=== PATIENT | female | born 1950 | race Caucasian/White ===

== ENCOUNTER 2016-03-30 21:47 | Inpatient (IN) ==
[2016-03-30] MEDS ORDERED: Ipratropium/Albuterol Neb 3 ML IH ONE (21:51)
[2016-03-30] MEDS ORDERED: methylPREDNISolone 125 MG/2 ML VIAL IVP ONE (21:51)
[2016-03-30] MEDS ORDERED: Propofol 500 MG/50 ML INFUS..BTL ONE (21:58)
[2016-03-30] MEDS: 0.9 % Sodium Chloride 1,000 ML IVC SCH ×2 (22:00→22:42)
[2016-03-30 22:03] LABS: Red Cell Distribution Width 13.4 % (11.5-14.5)
[2016-03-30 22:05] LABS: Basophils # 0.1 K/mcL (0.0-0.2); Basophils % 0.3 %; Hematocrit 47.3 % (35.3-44.9); Hemoglobin 15.8 g/dL (11.5-15.4); Immature Granulocytes % 1.1 % (0-4); Lymphocytes # 3.1 K/mcL (0.6-4.6); Lymphocytes % 11.9 %; Mean Corpuscular HGB Conc 33.4 g/dL (31.6-35.5); Mean Corpuscular Hemoglobin 32.7 pg (28.0-33.3); Mean Corpuscular Volume 97.9 fL (83.0-100.0); Monocytes % 7.7 %; Neutrophils # 20.6 K/mcL (1.6-8.9); Platelet Count 400 K/mcL (140-400); Red Blood Count 4.83 M/mcL (3.82-4.97)
--- NOTE | 2016-03-30 22:13 | Emergency Department Note ---
Disposition Clinical Impression: Acute exacerbation of chronic obstructive airways disease, Respiratory failure requiring intubation Sepsis Qualifiers: Sepsis type: sepsis due to unspecified organism Qualified Code(s): A41.9 - Sepsis, unspecified organism Disposition: Still a Patient Condition: Critical Referrals: NO,PCP [Primary Care Provider] - Forms: ED Satisfaction Letter General Adult HPI - General Chief complaint: ED Shortness of Breath/Dyspnea Stated complaint: Resp distress Time Seen by Provider: 03/30/16 21:51 Source: EMS Nursing Notes Reviewed: Yes Vital Signs Reviewed: Yes - History of Present Illness HPI Narrative: Patient has a long history of COPD. But looks sick she has ointment to our hospital one time in the past year. It all for shortness of breath. She was smoking when they got there started her on a nebulized treatment and during the transport she started getting more sleepy her saturations drop she became blue. They could not put an IV in her. So when she got here we set her up for an emergent intubation. She was intubated direct visualization after getting sedation here. And was intubated using an 80 tube. Chest x-rays done. Tube was adjusted. Labs are ordered. Septic protocol and placed chest pain or respiratory distress. We will go ahead and start her on sedation. Nebulized treatments. As likely antibiotics and further medications to determine per protocol once she is assessed further with laboratory work and physical exam. She was unable to give us any history due to her critical nature. Past medical history reviewed in nurse's notes reviewed allergies reviewed family interviewed. Pain Scale: 0 - Related Data Home Medications Medication Instructions Recorded Confirmed Albuterol Sulfate [Albuterol 1 puff IH PRN PRN 08/09/15 08/09/15 Inhaler] Alprazolam [Xanax 0.25 MG Tablet] 0.25 - 0.5 mg PO BID PRN 08/09/15 08/12/15 Fluticasone/Salmeterol [Advair 1 each IH BID 08/09/15 08/09/15 500-50 Diskus] Potassium Chloride [Klor-Con 10 meq PO DAILY 08/09/15 08/09/15 Sprinkle] Tiotropium [Spiriva] 18 mcg IH 0700 08/09/15 08/09/15 Atorvastatin Calcium [Lipitor] 20 mg PO HS 08/12/15 08/12/15 Ipratropium/Albuterol Neb [Duoneb] 3 ml IH Q6HR 08/12/15 08/12/15 Losartan/Hydrochlorothiazide 1 each PO DAILY 08/12/15 08/12/15 [Hyzaar 100-25 Tablet] Omeprazole [PriLOSEC] 20 mg PO DAILY 08/12/15 08/12/15 Theophylline Anhydrous 200 mg PO DAILY 08/12/15 08/12/15 [Theophylline] Previous Rx's Medication Instructions Recorded GuaiFENesin ER [Mucinex] 1,200 mg PO BID #1 tbbp.12hr 08/13/15 Levofloxacin [Levaquin] 750 mg PO DAILY #4 tablet 08/13/15 Metoprolol [Lopressor] 25 mg PO BID #60 tablet 08/13/15 Nicotine Patch [Nicoderm] 21 mg TD DAILY #30 patch.[id number] 08/13/15 PredniSONE 10 mg PO DAILY #21 tablet 08/13/15 Allergies Allergy/AdvReac Type Severity Reaction Status Date / Time No Known Allergies Allergy Verified 08/09/15 16:58 Limitations: ROS unobtainable due to patients medical condition Past Medical History - Past Medical History Medical history: Reports: COPD, coronary artery disease, GERD, hyperlipidemia, other Surgical history: Reports: hysterectomy Psychiatric history: Reports: anxiety 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 Her GCS is 10 HEENT: PERRL, EOMI, mucous membranes are dry, no scleral icterus, neck is supple no nodes. Cardiovascular is tachycardic but regular without rubs or JVD Lungs are decreased aeration at bases with wheezing bilaterally. Abdomen is soft and nonsurgical with bowel sounds Extremities are present 4 no pitting edema no signs of cellulitis no tenderness to the calves Neurologic she is not able to do a neuro exam, her GCS is 10. I do not see focal deficits. Dermatologic skin is dry no signs of cellulitis no signs of acute trauma or rash. Her lips were blue due to cyanosis. Course Vital Signs Temperature 101.7 F H 03/30/16 21:52 Pulse Rate 147 03/30/16 21:52 Respiratory Rate 30 03/30/16 21:52 Blood Pressure 190/148 03/30/16 21:52 O2 Sat by Pulse Oximetry 76 L 03/30/16 21:52 Temperature 101.7 F H 03/30/16 21:52 Pulse Rate 147 03/30/16 22:51 Respiratory Rate 14 03/30/16 22:51 Blood Pressure 134/81 03/30/16 22:51 O2 Sat by Pulse Oximetry 99 03/30/16 22:51 Oxygen Delivery Oxygen Delivery Ventilator Medical Decision Making - MDM Narrative Medical decision making narrative: I examined this patient and my medical decision-making was reviewed with the RESPIRATORY CARE SPECIALIST/PA/Advanced Practice Nurse/Resident Physician. I agree with the documented findings, disposition and treatment plan as described except to the extent set forth below. Evaluate this patient on arrival with Nilton Nagy's evaluation management plan, suprascapular patient's stay. Patient has a long history of COPD. But looks sick she has ointment to our hospital one time in the past year. It all for shortness of breath. She was smoking when they got there started her on a nebulized treatment and during the transport she started getting more sleepy her saturations drop she became blue. They could not put an IV in her. So when she got here we set her up for an emergent intubation. She was intubated direct visualization after getting sedation here. And was intubated using an 8 tube. Chest x-rays done. Tube was adjusted. Labs are ordered. Septic protocol and placed chest pain or respiratory distress. We will go ahead and start her on sedation. Nebulized treatments. As likely antibiotics and further medications to determine per protocol once she is assessed further with laboratory work and physical exam. She was unable to give us any history due to her critical nature. Patient's labs are returning. I do not see a true pneumonia and her chest x- ray we are to do a CTA due to the fact her d-dimer is elevated. We started her on sepsis protocol with respiratory source. Ceftriaxone and Levaquin were given she is artery been on Zithromax. I spoke to the hospitalist are going to admit her. We will do the CTA make sure that is normal. I will sign Out to the evening ER doctor Dr. Ordoñez to review the CTA and update the hospitalist with the results. Patient's critical care time excised separately billable procedures is 65 minutes. - Lab Data Result diagrams: 03/30/16 21:52 03/30/16 21:52 Lab Results 03/30/16 03/30/16 03/30/16 Range/Units 21:52 21:52 21:52 WBC 26.1 H (4.3-11.1) K/mcL RBC 4.83 (3.82-4.97) M/mcL Hgb 15.8 H (11.5-15.4) g/dL Hct 47.3 H (35.3-44.9) % MCV 97.9 (83.0-100.0) fL MCH 32.7 (28.0-33.3) pg MCHC 33.4 (31.6-35.5) g/dL RDW 13.4 (11.5-14.5) % Plt Count 400 (140-400) K/mcL MPV 9.0 L (9.4-12.4) fL Immature Gran % 1.1 (0-4) % Seg Neutrophils % 79.0 % Lymphocytes % 11.9 % Monocytes % 7.7 % Eosinophils % 0.0 % Basophils % 0.3 % Neutrophils # 20.6 H (1.6-8.9) K/mcL Lymphocytes # 3.1 (0.6-4.6) K/mcL Monocytes # 2.0 H (0.0-1.3) K/mcL Eosinophils # 0.0 (0.0-0.6) K/mcL Basophils # 0.1 (0.0-0.2) K/mcL Platelet Estimate Normal (Normal) D-Dimer (0-500) ng/mLFEU Sodium 129 L (136-145) mEq/L Potassium 4.1 (3.5-4.5) mEq/L Chloride 86 L (98-109) mEq/L Carbon Dioxide 35 H (19-29) mEq/L BUN 10 (7-20) mg/dL Creatinine 0.84 (0.57-1.11) mg/dL Est GFR ( Amer) > 60 (> 60) Est GFR (Non-Af Amer) > 60 (> 60) BUN/Creatinine Ratio 12 (6-26) Glucose 251 H (70-99) mg/dL Calculated Osmolality 276 L (280-300) Lactic Acid (0.5-2.2) mmol/L Calcium 9.9 (8.6-10.8) mg/dL Troponin I 0.18 H* (0-0.03) ng/mL B-Natriuretic Peptide (0-100) pg/mL 03/30/16 03/30/16 03/30/16 Range/Units 21:52 21:52 21:52 WBC (4.3-11.1) K/mcL RBC (3.82-4.97) M/mcL Hgb (11.5-15.4) g/dL Hct (35.3-44.9) % MCV (83.0-100.0) fL MCH (28.0-33.3) pg MCHC (31.6-35.5) g/dL RDW (11.5-14.5) % Plt Count (140-400) K/mcL MPV (9.4-12.4) fL Immature Gran % (0-4) % Seg Neutrophils % % Lymphocytes % % Monocytes % % Eosinophils % % Basophils % % Neutrophils # (1.6-8.9) K/mcL Lymphocytes # (0.6-4.6) K/mcL Monocytes # (0.0-1.3) K/mcL Eosinophils # (0.0-0.6) K/mcL Basophils # (0.0-0.2) K/mcL Platelet Estimate (Normal) D-Dimer 1079 H (0-500) ng/mLFEU Sodium (136-145) mEq/L Potassium (3.5-4.5) mEq/L Chloride (98-109) mEq/L Carbon Dioxide (19-29) mEq/L BUN (7-20) mg/dL Creatinine (0.57-1.11) mg/dL Est GFR ( Amer) (> 60) Est GFR (Non-Af Amer) (> 60) BUN/Creatinine Ratio (6-26) Glucose (70-99) mg/dL Calculated Osmolality (280-300) Lactic Acid 2.6 H (0.5-2.2) mmol/L Calcium (8.6-10.8) mg/dL Troponin I (0-0.03) ng/mL B-Natriuretic Peptide 58 (0-100) pg/mL
[2016-03-30 22:18] LABS: BUN/Creatinine Ratio 12 (6-26); Blood Urea Nitrogen 10 mg/dL (7-20); Calcium 9.9 mg/dL (8.6-10.8); Carbon Dioxide 35 mEq/L (19-29); Chloride 86 mEq/L (98-109); Glucose 251 mg/dL (70-99); Osmolality,Calculated 276 (280-300); Potassium 4.1 mEq/L (3.5-4.5); Sodium 129 mEq/L (136-145); eGFR For African Americans > 60 (> 60); eGFR For Non-African Americans > 60 (> 60)
[2016-03-30] MEDS ORDERED: 0.9 % Sodium Chloride 2,000 ML ONE (22:32)
[2016-03-30] MEDS ORDERED: Levofloxacin 750 MG/150 ML 750 MG/150 ML BAG IVPB ONE (22:36)
[2016-03-30 22:37] LABS: Platelet Estimate Normal (Normal)
--- NOTE | 2016-03-30 22:44 | Emergency Department Note ---
Disposition Clinical Impression: Acute exacerbation of chronic obstructive airways disease, Respiratory failure requiring intubation Sepsis Qualifiers: Sepsis type: sepsis due to unspecified organism Qualified Code(s): A41.9 - Sepsis, unspecified organism Disposition: Admitted As Inpatient Condition: Critical Time of Disposition: 22:38 SOB HPI - General Chief Complaint: ED Shortness of Breath/Dyspnea Stated Complaint: Resp distress Time Seen by Provider: 03/30/16 21:51 Source: EMS Nursing Notes Reviewed: Yes Vital Signs Reviewed: Yes - History of Present Illness 65-year-old female who presented obtunded secondary to respiratory distress. Patient was intubated upon arrival to the emergency department. - Related Data Home Medications Medication Instructions Recorded Confirmed Albuterol Sulfate [Albuterol 1 puff IH PRN PRN 08/09/15 03/30/16 Inhaler] Alprazolam [Xanax 0.25 MG Tablet] 0.25 - 0.5 mg PO BID PRN 08/09/15 03/30/16 Potassium Chloride [Klor-Con 10 meq PO DAILY 08/09/15 03/30/16 Sprinkle] Tiotropium [Spiriva] 18 mcg IH DAILY 08/09/15 03/30/16 Atorvastatin Calcium [Lipitor] 20 mg PO HS 08/12/15 03/30/16 Ipratropium/Albuterol Neb [Duoneb] 3 ml IH Q6HR 08/12/15 03/30/16 Losartan/Hydrochlorothiazide 1 tab PO DAILY 08/12/15 03/30/16 [Hyzaar 100-25 Tablet] Omeprazole [PriLOSEC] 20 mg PO DAILY 08/12/15 03/30/16 Theophylline Anhydrous 200 mg PO DAILY 08/12/15 03/30/16 [Theophylline] Azithromycin [Azithromycin 6-Tab 250 mg PO PER PKG DI 03/30/16 03/30/16 Pack] Cholecalciferol (D-3) [Vitamin D] 2,000 unit PO DAILY 03/30/16 03/30/16 Fluticasone/Salmeterol [Advair 1 puff IH BID 03/30/16 03/30/16 250-50 Diskus] Metoprolol XL (24 HR) Succ [Toprol 100 mg PO DAILY 03/30/16 03/30/16 XL] PredniSONE [Deltasone] 40 mg PO DAILY 03/30/16 03/30/16 Torsemide [Demadex] 10 - 20 mg PO DAILY PRN 03/30/16 03/30/16 Allergies Allergy/AdvReac Type Severity Reaction Status Date / Time No Known Allergies Allergy Verified 08/09/15 16:58 Past Medical History - Past Medical History Medical history: Reports: COPD, coronary artery disease, GERD, hyperlipidemia, other Surgical history: Reports: hysterectomy Psychiatric history: Reports: anxiety JUDO TEACHER history: Reports: no JUDO TEACHER history - Social History Smoking Status: Current every day smoker Smokeless Tobacco Status: No Alcohol use: Reports: none Drug use: Reports: none Physical Exam Patient is not adequately respirator or perfusing which required intubation to maintain patient's airway. Post intubation patient was placed on ventilatory support - General Limitations: altered mental status General appearance: obtunded, in distress - Head Head exam: atraumatic, normocephalic Course Vital Signs Temperature 101.7 F H 03/30/16 21:52 Pulse Rate 147 03/30/16 21:52 Respiratory Rate 30 03/30/16 21:52 Blood Pressure 190/148 03/30/16 21:52 O2 Sat by Pulse Oximetry 76 L 03/30/16 21:52 Temperature 98.6 F 04/05/16 21:01 Pulse Rate 86 04/05/16 20:15 Respiratory Rate 18 04/05/16 21:48 Blood Pressure 128/80 04/05/16 20:15 O2 Sat by Pulse Oximetry 98 04/05/16 21:48 Oxygen Delivery Oxygen Delivery Ventilator Procedures - Intubation Time out performed: Yes sedative: Etomidate Mg Given: 20 paralytic: Rocuronium Mg Given: 100 Laryngoscope: Estrada ET Tube Size: 8 ET Tube Uncuffed: No Tube Secured Depth (cm): 23 Tube Secured Location: teeth Tube Placement Confirmation: visualized tube passing through cords, equal breath sounds bilaterally, no breath sounds over epigastrium, confirmation by capnometry Patient Tolerated Procedure: well, no complications Intubation Complications: none Shortness of Breath/Dyspnea - Medical Records Medical records reviewed: Yes I reviewed the patient's medical records. - Lab Data Lab results reviewed: Yes I reviewed the patient's lab results. Result diagrams: 04/05/16 03:45 04/05/16 03:45 Lab Results 03/30/16 03/30/16 03/30/16 Range/Units 21:52 21:52 21:52 WBC 26.1 H (4.3-11.1) K/mcL RBC 4.83 (3.82-4.97) M/mcL Hgb 15.8 H (11.5-15.4) g/dL Hct 47.3 H (35.3-44.9) % MCV 97.9 (83.0-100.0) fL MCH 32.7 (28.0-33.3) pg MCHC 33.4 (31.6-35.5) g/dL RDW 13.4 (11.5-14.5) % Plt Count 400 (140-400) K/mcL MPV 9.0 L (9.4-12.4) fL Immature Gran % 1.1 (0-4) % Seg Neutrophils % 79.0 % Lymphocytes % 11.9 % Monocytes % 7.7 % Eosinophils % 0.0 % Basophils % 0.3 % Neutrophils # 20.6 H (1.6-8.9) K/mcL Lymphocytes # 3.1 (0.6-4.6) K/mcL Monocytes # 2.0 H (0.0-1.3) K/mcL Eosinophils # 0.0 (0.0-0.6) K/mcL Basophils # 0.1 (0.0-0.2) K/mcL Platelet Estimate Normal (Normal) D-Dimer (0-500) ng/mLFEU ABG pH (7.32-7.45) pH Units ABG pCO2 (35-45) mmHg ABG pO2 (85-104) mmHg ABG HCO3 (21-27) mEQ/L ABG Total CO2 (20-26) mEq/L ABG O2 Saturation (95-98) % ABG Base Excess (-2.0 to 3.0) mEq/L Blood Gas Modality Inspired O2 % Sodium 129 L (136-145) mEq/L Potassium 4.1 (3.5-4.5) mEq/L Chloride 86 L (98-109) mEq/L Carbon Dioxide 35 H (19-29) mEq/L BUN 10 (7-20) mg/dL Creatinine 0.84 (0.57-1.11) mg/dL Est GFR ( Amer) > 60 (> 60) Est GFR (Non-Af Amer) > 60 (> 60) BUN/Creatinine Ratio 12 (6-26) Glucose 251 H (70-99) mg/dL Calculated Osmolality 276 L (280-300) Lactic Acid (0.5-2.2) mmol/L Calcium 9.9 (8.6-10.8) mg/dL Troponin I 0.18 H* (0-0.03) ng/mL B-Natriuretic Peptide (0-100) pg/mL 03/30/16 03/30/16 03/30/16 Range/Units 21:52 21:52 21:52 WBC (4.3-11.1) K/mcL RBC (3.82-4.97) M/mcL Hgb (11.5-15.4) g/dL Hct (35.3-44.9) % MCV (83.0-100.0) fL MCH (28.0-33.3) pg MCHC (31.6-35.5) g/dL RDW (11.5-14.5) % Plt Count (140-400) K/mcL MPV (9.4-12.4) fL Immature Gran % (0-4) % Seg Neutrophils % % Lymphocytes % % Monocytes % % Eosinophils % % Basophils % % Neutrophils # (1.6-8.9) K/mcL Lymphocytes # (0.6-4.6) K/mcL Monocytes # (0.0-1.3) K/mcL Eosinophils # (0.0-0.6) K/mcL Basophils # (0.0-0.2) K/mcL Platelet Estimate (Normal) D-Dimer 1079 H (0-500) ng/mLFEU ABG pH (7.32-7.45) pH Units ABG pCO2 (35-45) mmHg ABG pO2 (85-104) mmHg ABG HCO3 (21-27) mEQ/L ABG Total CO2 (20-26) mEq/L ABG O2 Saturation (95-98) % ABG Base Excess (-2.0 to 3.0) mEq/L Blood Gas Modality Inspired O2 % Sodium (136-145) mEq/L Potassium (3.5-4.5) mEq/L Chloride (98-109) mEq/L Carbon Dioxide (19-29) mEq/L BUN (7-20) mg/dL Creatinine (0.57-1.11) mg/dL Est GFR ( Amer) (> 60) Est GFR (Non-Af Amer) (> 60) BUN/Creatinine Ratio (6-26) Glucose (70-99) mg/dL Calculated Osmolality (280-300) Lactic Acid 2.6 H (0.5-2.2) mmol/L Calcium (8.6-10.8) mg/dL Troponin I (0-0.03) ng/mL B-Natriuretic Peptide 58 (0-100) pg/mL 03/30/16 Range/Units 23:48 WBC (4.3-11.1) K/mcL RBC (3.82-4.97) M/mcL Hgb (11.5-15.4) g/dL Hct (35.3-44.9) % MCV (83.0-100.0) fL MCH (28.0-33.3) pg MCHC (31.6-35.5) g/dL RDW (11.5-14.5) % Plt Count (140-400) K/mcL MPV (9.4-12.4) fL Immature Gran % (0-4) % Seg Neutrophils % % Lymphocytes % % Monocytes % % Eosinophils % % Basophils % % Neutrophils # (1.6-8.9) K/mcL Lymphocytes # (0.6-4.6) K/mcL Monocytes # (0.0-1.3) K/mcL Eosinophils # (0.0-0.6) K/mcL Basophils # (0.0-0.2) K/mcL Platelet Estimate (Normal) D-Dimer (0-500) ng/mLFEU ABG pH 7.11 L* (7.32-7.45) pH Units ABG pCO2 126 H* (35-45) mmHg ABG pO2 118 H (85-104) mmHg ABG HCO3 40.0 H (21-27) mEQ/L ABG Total CO2 43.9 H (20-26) mEq/L ABG O2 Saturation 97 (95-98) % ABG Base Excess 5.1 H (-2.0 to 3.0) mEq/L Blood Gas Modality ASSIST CONTROL Inspired O2 60 % Sodium (136-145) mEq/L Potassium (3.5-4.5) mEq/L Chloride (98-109) mEq/L Carbon Dioxide (19-29) mEq/L BUN (7-20) mg/dL Creatinine (0.57-1.11) mg/dL Est GFR ( Amer) (> 60) Est GFR (Non-Af Amer) (> 60) BUN/Creatinine Ratio (6-26) Glucose (70-99) mg/dL Calculated Osmolality (280-300) Lactic Acid (0.5-2.2) mmol/L Calcium (8.6-10.8) mg/dL Troponin I (0-0.03) ng/mL B-Natriuretic Peptide (0-100) pg/mL - Radiology Data Radiology results reviewed: Yes I reviewed the patient's radiology results. Chest CTA 03/30/16 22:46 IMPRESSION: 1. Bilateral bronchitis and bronchiolitis. 2. Mildly enlarged mediastinal and right hilar adenopathy, likely reactive. 3. Nasogastric tube terminates at the level of the lower gastroesophageal junction and should be advanced approximately 7 cm. 4. Mild inflammatory stranding surrounding the left adrenal gland could be due to hemorrhage. D/ / Clifton Romero MD / Clifton Romero MD Interpreting Provider: Clifton Romero MD Chest X-Ray 04/02/16 06:00 IMPRESSION: 1. The orogastric tube has been retracted. The tip is in the distal esophagus, and the side port is in the mid esophagus. This should be advanced 18 cm. 2. Pulmonary vascular congestion with small bilateral pleural effusions and associated bibasilar atelectasis. D/ / Stu Plaza MD / Stu Plaza MD Interpreting Provider: Stu Plaza MD X-Ray 04/02/16 08:14 IMPRESSION: Enteric tube in place with its tip likely within the distal stomach. D/ / Itzel Roldan Cha, MD / Itzel Roldan Cha, MD Interpreting Provider: Itzel Roldan Cha, MD
[2016-03-30] MEDS ORDERED: Aspirin 81 MG TAB.CHEW PO ONE (22:45)
[2016-03-30 23:53] LABS: ABG Base Excess 5.1 mEq/L (-2.0 to 3.0); ABG Oxygen Saturation 97 % (95-98); ABG PO2 118 mmHg (85-104); ABG TCO2 43.9 mEq/L (20-26)
[2016-03-30 23:56] LABS: ABG PCO2 126 mmHg (35-45); ABG PH 7.11 pH Units (7.32-7.45); Blood Gas FiO2 60 %
[2016-03-31] MEDS ORDERED: Naloxone 0.4 MG/ML INJ IVP PRN (00:01)
--- NOTE | 2016-03-31 00:53 | Internal Med History&Physical ---
Date of Encounter: 03/31/16 Time of Encounter: 00:30 Assessment and Plan (1) Respiratory failure requiring intubation Current visit: Yes Status: Acute Acute respiratory failure with hypoxia and hypercarbia. Likely secondary to COPD exacerbation in the setting of bronchitis. CTA suggestive of bronchitis, no signs of PE. ABG showed CO2 126. Patient currently intubated. Given one dose rocephin in ED. Continue levaquin. Continue steroids. (2) Acute exacerbation of chronic obstructive airways disease Current visit: Yes Status: Acute See above (3) Bronchitis Current visit: Yes Status: Acute See above. (4) Sepsis Current visit: Yes Status: Acute Sepsis, possibly reactive to ARF in the setting of COPD exacerbation vs bronchitis. Patient received fluid bolus, one dose rocephin, and continuing Lezaquin. Blood cultures pending. Ordered repeat Lactic acid. Qualifiers: Sepsis type: sepsis due to unspecified organism Qualified Code(s): A41.9 - Sepsis, unspecified organism (5) DVT prophylaxis Current visit: No Status: Acute Lovenox daily (6) HTN (hypertension) Current visit: No Status: Chronic Hypertensive on arrival, decreased with administration of propofol. Continue to monitor and adjust medications as needed. Qualifiers: Hypertension type: essential hypertension Qualified Code(s): I10 - Essential (primary) hypertension (7) SANJUANA (obstructive sleep apnea) Current visit: No Status: Chronic Internal Medicine - H&P: HPI Chief complaint: shortness of breath Admitted From: Emergency Dept Plans for Post Hospital Care: Home History of present illness: Ms. Cook is a 65 year old female brought in by EMS for respiratory distress, patient was quickly intubated upon arrival and unable to provide history. I was able to talk to patient's daughter that stated Ms. Cook began feeling sick and short of breath on Sunday. On Sunday she was seen at [facility] where she received azithromycin and steroids, however, continued to worsen at home until she called for EMS tonight. Patient's daughter states that patient has a history of COPD, with an exacerbation in the past 6-12 months. Patient continues to smoke 1-2ppd, though a few months ago she did try quitting with Chantix and was unsuccessful. DAughter also notes patient has been coughing the past week with sputum production. Past Med Surg Social Fam HX - Past Medical History Medical history: COPD, coronary artery disease, GERD, hyperlipidemia, other Psychiatric history: anxiety - Past Surgical History Surgical History: hysterectomy - Social History Smoking Status: Current every day smoker Smokeless Tobacco Status: No Alcohol use: none Drug use: none - Family History Father Hx Family Cardiac Disorders: Yes Hx Family Respiratory Disorders: No Hx Family Endocrine Disorder: Yes (possible diabetic) Internal Medicine - H&P: Meds Albuterol Sulfate [Albuterol Inhaler] 1 puff IH PRN PRN 08/09/15 [History] Alprazolam [Xanax 0.25 MG Tablet] 0.25 - 0.5 mg PO BID PRN 08/09/15 [History] Potassium Chloride [Klor-Con Sprinkle] 10 meq PO DAILY 08/09/15 [History] Tiotropium [Spiriva] 18 mcg IH DAILY 08/09/15 [History] Atorvastatin Calcium [Lipitor] 20 mg PO HS 08/12/15 [History] Ipratropium/Albuterol Neb [Duoneb] 3 ml IH Q6HR 08/12/15 [History] Losartan/Hydrochlorothiazide [Hyzaar 100-25 Tablet] 1 tab PO DAILY 08/12/15 [ History] Omeprazole [PriLOSEC] 20 mg PO DAILY 08/12/15 [History] Theophylline Anhydrous [Theophylline] 200 mg PO DAILY 08/12/15 [History] Azithromycin [Azithromycin 6-Tab Pack] 250 mg PO PER PKG DI 03/30/16 [History] Cholecalciferol (D-3) [Vitamin D] 2,000 unit PO DAILY 03/30/16 [History] Fluticasone/Salmeterol [Advair 250-50 Diskus] 1 puff IH BID 03/30/16 [History] Metoprolol XL (24 HR) Succ [Toprol XL] 100 mg PO DAILY 03/30/16 [History] PredniSONE [Deltasone] 40 mg PO DAILY 03/30/16 [History] Torsemide [Demadex] 10 - 20 mg PO DAILY PRN 03/30/16 [History] Allergies No Known Allergies Allergy (Verified 08/09/15 16:58) ROS unobtainable: due to endotracheal tube All Systems PM: A 10-system review of systems was performed and is negative for pertinent findings except as documented above in the HPI. - Constitutional Vitals: Temp Pulse Resp BP Pulse Ox 99.6 F 147 16 130/77 99 03/31/16 00:30 03/30/16 22:51 03/31/16 00:30 03/31/16 00:30 03/30/16 22:51 Exam: Patient sedated and on mechanical ventilation. - Head Head exam: Present: atraumatic, normocephalic - Eye Eye exam: Present: conjuntiva pink, sclera anicteric Pupils: Present: miosis - Neck Neck exam general surgery: Present: supple, trachea midline. Absent: lymphadenopathy - Respiratory Respiratory exam: Present: rhonchi, wheezes. Absent: accessory muscle use, rales Additional comments: coarse breath sounds throughout. - Cardiovascular Cardiovascular exam: Present: distant heart sounds, RRR, +S1, +S2. Absent: diastolic murmur, gallop, rubs, systolic murmur - GI/Abdominal GI/Abdominal exam: Present: normal bowel sounds, soft, no peritoneal signs. Absent: distended - Extremities Exam Extremities exam: Present: warm, radial pulses palpable and symetrical. Absent : cyanotic, pedal edema - Neurological Exam Additional comments: patient sedated. - Skin Skin exam: Present: dry, intact Internal Med - H&P Results - Labs CBC & Chem 7: 03/30/16 21:52 03/30/16 21:52
[2016-03-31] MEDS ORDERED: Propofol 500 MG/50 ML INFUS..BTL ONE (00:56)
[2016-03-31 01:09] LABS: ABG Base Excess 3.5 mEq/L (-2.0 to 3.0); ABG HCO3 36.2 mEQ/L (21-27); ABG Oxygen Saturation 94 % (95-98); ABG PO2 87 mmHg (85-104); ABG TCO2 39.2 mEq/L (20-26)
[2016-03-31 01:11] LABS: ABG PH 7.18 pH Units (7.32-7.45); Blood Gas FiO2 60 %
[2016-03-31 01:12] LABS: ABG PCO2 97 mmHg (35-45)
[2016-03-31] MEDS ORDERED: 0.9 % Sodium Chloride 1,000 ML IVC ONE (02:04)
[2016-03-31] MEDS: 0.9 % Sodium Chloride 1,000 ML IVC SCH ×5 (02:11→20:25)
[2016-03-31] MEDS: FentaNYL (PF) 1,000 MCG in 0.9 % Sodium Chloride 80 ML IVC SCH ×3 (02:27→17:54)
[2016-03-31 02:58] LABS: BUN/Creatinine Ratio 12 (6-26); Blood Urea Nitrogen 11 mg/dL (7-20); Carbon Dioxide 29 mEq/L (19-29); Chloride 93 mEq/L (98-109); Glucose 168 mg/dL (70-99); Osmolality,Calculated 273 (280-300); Potassium 4.2 mEq/L (3.5-4.5); Sodium 130 mEq/L (136-145); eGFR For African Americans > 60 (> 60); eGFR For Non-African Americans > 60 (> 60)
[2016-03-31 03:02] LABS: Calcium 7.8 mg/dL (8.6-10.8)
[2016-03-31] MEDS ORDERED: *HR* Heparin 5,000 UNIT/ML VIAL IVP PRN ×2 (03:17)
[2016-03-31] MEDS ORDERED: *HR* Heparin 5,000 UNIT/ML VIAL IVP ONE (03:17)
[2016-03-31] MEDS ORDERED: Aspirin 81 MG TAB.CHEW PO ONE (03:31)
[2016-03-31 03:52] LABS: INR 1.1
[2016-03-31 03:54] LABS: Activated Partial Thrombo Time 28.4 Seconds (26.0-36.0)
[2016-03-31] MEDS: Heparin 25,000 UNIT/500 ML D5W 25,000 UNIT/500 ML MLS IVC SCH (04:16)
[2016-03-31] MEDS: Piperacillin/Tazobactam 3.375 GM in D5% in Water (Mini-Bag+) 100 ML IVPB SCH ×3 (04:20→21:51)
[2016-03-31 04:22] LABS: Magnesium 1.4 mg/dL (1.6-2.6)
[2016-03-31 04:51] LABS: ABG Base Excess 4.7 mEq/L (-2.0 to 3.0); ABG HCO3 34.6 mEQ/L (21-27); ABG Oxygen Saturation 99 % (95-98); ABG PH 7.25 pH Units (7.32-7.45); ABG PO2 151 mmHg (85-104)
[2016-03-31 04:52] LABS: Blood Gas FiO2 60 %
[2016-03-31 04:54] LABS: ABG PCO2 79 mmHg (35-45)
[2016-03-31 05:03] LABS: Hematocrit 41.6 % (35.3-44.9); Mean Corpuscular HGB Conc 32.7 g/dL (31.6-35.5); Mean Corpuscular Hemoglobin 32.1 pg (28.0-33.3); Mean Corpuscular Volume 98.1 fL (83.0-100.0); Mean Platelet Volume 9.3 fL (9.4-12.4); Platelet Count 276 K/mcL (140-400); Red Blood Count 4.24 M/mcL (3.82-4.97); Red Cell Distribution Width 13.5 % (11.5-14.5)
[2016-03-31 05:25] LABS: Hemoglobin 13.6 g/dL (11.5-15.4)
[2016-03-31] MEDS ORDERED: *HR* Enoxaparin 40 MG/0.4 ML SYRINGE SQ SCH (06:00)
[2016-03-31] MEDS ORDERED: Sodium Phosphate 30 MMOL in D5% in Water 100 ML IVPB PRN (06:36)
[2016-03-31] MEDS ORDERED: Dexmedetomidine HCl 400 MCG/100 ML MLS IVC ONE (07:23)
--- NOTE | 2016-03-31 07:35 | Pulmonology Consult Note ---
<Renato Erickson - Last Filed: 03/31/16 12:08> Time of Encounter: 07:34 Assessment and Plan (1) Septic shock Current Visit: Yes Status: Acute Patient presented with tachycardia and tachypnea with pneumonia as a possible source of infection. Patient was hypotensive which did not respond to fluids. Norepinephrine has been initiated. Blood cultures are pending. Initial lactic acid was 2.6, this has come down to 1.5. Broad-spectrum antibiotic coverage with vancomycin, Levaquin, Zosyn. We will continue to monitor. (2) Acute hypercapnic respiratory failure Current Visit: Yes Status: Acute Likely related to acute exacerbation of COPD. No objective evidence of pneumonia however this is still concern. Patient had significant hypercapnia on presentation which is improved with mechanical ventilation. We will continue to follow her ABGs. (3) Acute exacerbation of chronic obstructive airways disease Current Visit: Yes Status: Acute Patient was being treated as an outpatient however she failed outpatient treatment. Patient had worsening of her symptoms. Including shortness of breath, sputum production. Patient was intubated and mechanically ventilated. She is currently on bronchodilators, steroids, antibiotics with vancomycin, Levaquin, Zosyn. (4) Non-STEMI (non-ST elevated myocardial infarction) Current Visit: Yes Status: Acute Patient had an elevation of her troponin which peaked at 2.9. There are some areas of ST elevation on EKG, clinical services consultant was contacted overnight who did not feel this was a STEMI. Heparin drip is been initiated. Cardiology is following. We will hold her beta brenda and ARB in the setting of hypotension. (5) Chronic heart failure Current Visit: Yes Status: Acute Does not appear to be in acute exacerbation. Echo pending. Patient is on outpatient diuretic, beta brenda, angiotension receptor brenda. We will hold these due to hypotension. Cardiology is following. Qualifiers: Heart failure type: unspecified heart failure type Qualified Code(s): I50.9 - Heart failure, unspecified (6) DVT prophylaxis Current Visit: No Status: Acute Heparin 5000 units subcutaneous twice a day. History of Present Illness Consult date: 03/31/16 Requesting physician: Abhay Isidro Reason for consult: dyspnea Chief complaint: Respiratory distress History of present illness: Patient is a 65-year-old female with history of severe COPD who presented in respiratory distress. Apparently she was having some upper respiratory type infections for the last several days, saw her primary care physician and was treated as an outpatient with Zithromax and prednisone. She did not improve and came to the emergency department last night with shortness of breath. She was found to be in respiratory distress and was subsequently intubated. At time of exam the patient was awake, intubated, sedated and appeared to be resting comfortably. Past Med Surg Social Fam HX - Past Medical History Medical history: COPD, coronary artery disease, GERD, hyperlipidemia, other Psychiatric history: anxiety - Past Surgical History Surgical History: hysterectomy - Social History Smoking Status: Current every day smoker Packs per day: 2 Smokeless Tobacco Status: No Alcohol use: none Drug use: none - Family History Father Hx Family Cardiac Disorders: Yes Hx Family Respiratory Disorders: No Hx Family Endocrine Disorder: Yes (possible diabetic) Medications and Allergies Albuterol Sulfate [Albuterol Inhaler] 1 puff IH PRN PRN 08/09/15 [History] Alprazolam [Xanax 0.25 MG Tablet] 0.25 - 0.5 mg PO BID PRN 08/09/15 [History] Potassium Chloride [Klor-Con Sprinkle] 10 meq PO DAILY 08/09/15 [History] Tiotropium [Spiriva] 18 mcg IH DAILY 08/09/15 [History] Atorvastatin Calcium [Lipitor] 20 mg PO HS 08/12/15 [History] Ipratropium/Albuterol Neb [Duoneb] 3 ml IH Q6HR 08/12/15 [History] Losartan/Hydrochlorothiazide [Hyzaar 100-25 Tablet] 1 tab PO DAILY 08/12/15 [ History] Omeprazole [PriLOSEC] 20 mg PO DAILY 08/12/15 [History] Theophylline Anhydrous [Theophylline] 200 mg PO DAILY 08/12/15 [History] Azithromycin [Azithromycin 6-Tab Pack] 250 mg PO PER PKG DI 03/30/16 [History] Cholecalciferol (D-3) [Vitamin D] 2,000 unit PO DAILY 03/30/16 [History] Fluticasone/Salmeterol [Advair 250-50 Diskus] 1 puff IH BID 03/30/16 [History] Metoprolol XL (24 HR) Succ [Toprol XL] 100 mg PO DAILY 03/30/16 [History] PredniSONE [Deltasone] 40 mg PO DAILY 03/30/16 [History] Torsemide [Demadex] 10 - 20 mg PO DAILY PRN 03/30/16 [History] Allergies No Known Allergies Allergy (Verified 08/09/15 16:58) ROS unobtainable: due to endotracheal tube All Systems: A 10-system review of systems was performed and is negative for pertinent findings except as documented above in the HPI. Physical Examination Vital Signs: Vital Signs, Last 4 Hours Temp Pulse Resp BP Pulse Ox 03/31/16 06:00 80 16 78/54 97 03/31/16 05:00 83 16 80/58 99 03/31/16 04:40 83 03/31/16 04:34 99.1 F 03/31/16 04:00 86 16 72/57 99 General appearance: comatose ENT: oropharynx moist Effort: normal Auscultation: bilateral: diminished breath sounds Cardiovascular: regular rate and rhythm Gastrointestinal: normoactive bowel sounds, soft, non-tender, non-distended Extremities: no cyanosis, no clubbing, edema (Trace) unable to assess due to mental status Ventilator Settings Ventilator Settings: Ventilator Settings, Last 8 Hours Ventilator Mode A/C Ventilator Mode A/C Ventilator Mode A/C Ventilator Mode A/C Ventilator Mode A/C Ventilator Mode A/C Ventilator Tidal Volume 500 Setting Ventilator Tidal Volume 500 Setting Ventilator Tidal Volume 500 Setting Ventilator Tidal Volume 500 Setting Ventilator Tidal Volume 500 Setting Ventilator Tidal Volume 500 Setting Ventilator Respiratory Rate 16 Setting Ventilator Respiratory Rate 16 Setting Ventilator Respiratory Rate 16 Setting Ventilator Respiratory Rate 16 Setting Ventilator Respiratory Rate 16 Setting Ventilator Respiratory Rate 16 Setting Actual Respiratory Rate 16 Actual Respiratory Rate 16 Actual Respiratory Rate 16 Actual Respiratory Rate 16 Actual Respiratory Rate 16 Actual Respiratory Rate 16 Positive End Expiratory 5 Pressure Positive End Expiratory 5 Pressure Positive End Expiratory 5 Pressure Positive End Expiratory 5 Pressure Positive End Expiratory 5 Pressure Positive End Expiratory 5 Pressure Peak Inspiratory Airway 47 Pressure Peak Inspiratory Airway 51 Pressure Peak Inspiratory Airway 35 Pressure Peak Inspiratory Airway 44 Pressure Peak Inspiratory Airway 38 Pressure Peak Inspiratory Airway 36 Pressure Results - Laboratory Findings CBC and BMP: 03/31/16 02:34 03/31/16 02:38 ABG ABG pH 7.25 pH Units (7.32-7.45) L 03/31/16 04:38 ABG pCO2 79 mmHg (35-45) H* 03/31/16 04:38 ABG pO2 151 mmHg (85-104) H 03/31/16 04:38 ABG O2 Saturation 99 % (95-98) H 03/31/16 04:38 PT/INR, D-dimer PT 12.0 Seconds (9.4-12.1) 03/31/16 03:38 D-Dimer 1079 ng/mLFEU (0-500) H 03/30/16 21:52 Abnormal lab findings: Abnormal lab results WBC 15.5 K/mcL (4.3-11.1) H 03/31/16 02:34 MPV 9.3 fL (9.4-12.4) L 03/31/16 02:34 Neutrophils # 20.6 K/mcL (1.6-8.9) H 03/30/16 21:52 Monocytes # 2.0 K/mcL (0.0-1.3) H 03/30/16 21:52 D-Dimer 1079 ng/mLFEU (0-500) H 03/30/16 21:52 ABG pH 7.25 pH Units (7.32-7.45) L 03/31/16 04:38 ABG pCO2 79 mmHg (35-45) H* 03/31/16 04:38 ABG pO2 151 mmHg (85-104) H 03/31/16 04:38 ABG HCO3 34.6 mEQ/L (21-27) H 03/31/16 04:38 ABG Total CO2 37.0 mEq/L (20-26) H 03/31/16 04:38 ABG O2 Saturation 99 % (95-98) H 03/31/16 04:38 ABG Base Excess 4.7 mEq/L (-2.0 to 3.0) H 03/31/16 04:38 Sodium 130 mEq/L (136-145) L 03/31/16 02:38 Chloride 93 mEq/L (98-109) L 03/31/16 02:38 Glucose 168 mg/dL (70-99) H 03/31/16 02:38 POC Glucose 184 (58-89) H 03/31/16 01:07 Calculated Osmolality 273 (280-300) L 03/31/16 02:38 Calcium 7.8 mg/dL (8.6-10.8) L D 03/31/16 02:38 Magnesium 1.4 mg/dL (1.6-2.6) L 03/31/16 02:38 Troponin I 2.93 ng/mL (0-0.03) H* 03/31/16 02:38 - Clinical Findings Intake & Output: Intake & Output 03/30/16 03/30/16 03/31/16 15:59 23:59 07:59 Intake Total 2226 / 2226 Output Total 275 / 275 Balance 1950 / 1950 Weight 101.7 kg Consult Discharge Plan - Plan Referrals: NO,PCP [Primary Care Provider] - <Tanner Perera - Last Filed: 03/31/16 16:36> Date of Encounter: 03/31/16 All Systems: A 10-system review of systems was performed and is negative for pertinent findings except as documented above in the HPI. Physical Examination Vital Signs: Vital Signs, Last 4 Hours Temp Pulse Resp BP Pulse Ox 03/31/16 06:00 80 16 78/54 97 03/31/16 05:00 83 16 80/58 99 03/31/16 04:40 83 03/31/16 04:34 99.1 F 03/31/16 04:00 86 16 72/57 99 Ventilator Settings Ventilator Settings: Ventilator Settings, Last 8 Hours Ventilator Mode A/C Ventilator Mode A/C Ventilator Mode A/C Ventilator Mode A/C Ventilator Mode A/C Ventilator Mode A/C Ventilator Tidal Volume 500 Setting Ventilator Tidal Volume 500 Setting Ventilator Tidal Volume 500 Setting Ventilator Tidal Volume 500 Setting Ventilator Tidal Volume 500 Setting Ventilator Tidal Volume 500 Setting Ventilator Respiratory Rate 16 Setting Ventilator Respiratory Rate 16 Setting Ventilator Respiratory Rate 16 Setting Ventilator Respiratory Rate 16 Setting Ventilator Respiratory Rate 16 Setting Ventilator Respiratory Rate 16 Setting Actual Respiratory Rate 16 Actual Respiratory Rate 16 Actual Respiratory Rate 16 Actual Respiratory Rate 16 Actual Respiratory Rate 16 Actual Respiratory Rate 16 Positive End Expiratory 5 Pressure Positive End Expiratory 5 Pressure Positive End Expiratory 5 Pressure Positive End Expiratory 5 Pressure Positive End Expiratory 5 Pressure Positive End Expiratory 5 Pressure Peak Inspiratory Airway 47 Pressure Peak Inspiratory Airway 51 Pressure Peak Inspiratory Airway 35 Pressure Peak Inspiratory Airway 44 Pressure Peak Inspiratory Airway 38 Pressure Peak Inspiratory Airway 36 Pressure Results - Laboratory Findings CBC and BMP: 03/31/16 15:15 03/31/16 15:15 ABG ABG pH 7.25 pH Units (7.32-7.45) L 03/31/16 04:38 ABG pCO2 79 mmHg (35-45) H* 03/31/16 04:38 ABG pO2 151 mmHg (85-104) H 03/31/16 04:38 ABG O2 Saturation 99 % (95-98) H 03/31/16 04:38 PT/INR, D-dimer PT 12.0 Seconds (9.4-12.1) 03/31/16 03:38 D-Dimer 1079 ng/mLFEU (0-500) H 03/30/16 21:52 Abnormal lab findings: Abnormal lab results WBC 15.5 K/mcL (4.3-11.1) H 03/31/16 02:34 MPV 9.3 fL (9.4-12.4) L 03/31/16 02:34 Neutrophils # 20.6 K/mcL (1.6-8.9) H 03/30/16 21:52 Monocytes # 2.0 K/mcL (0.0-1.3) H 03/30/16 21:52 D-Dimer 1079 ng/mLFEU (0-500) H 03/30/16 21:52 ABG pH 7.25 pH Units (7.32-7.45) L 03/31/16 04:38 ABG pCO2 79 mmHg (35-45) H* 03/31/16 04:38 ABG pO2 151 mmHg (85-104) H 03/31/16 04:38 ABG HCO3 34.6 mEQ/L (21-27) H 03/31/16 04:38 ABG Total CO2 37.0 mEq/L (20-26) H 03/31/16 04:38 ABG O2 Saturation 99 % (95-98) H 03/31/16 04:38 ABG Base Excess 4.7 mEq/L (-2.0 to 3.0) H 03/31/16 04:38 Sodium 130 mEq/L (136-145) L 03/31/16 02:38 Chloride 93 mEq/L (98-109) L 03/31/16 02:38 Glucose 168 mg/dL (70-99) H 03/31/16 02:38 POC Glucose 184 (58-89) H 03/31/16 01:07 Calculated Osmolality 273 (280-300) L 03/31/16 02:38 Calcium 7.8 mg/dL (8.6-10.8) L D 03/31/16 02:38 Magnesium 1.4 mg/dL (1.6-2.6) L 03/31/16 02:38 Troponin I 2.93 ng/mL (0-0.03) H* 03/31/16 02:38 - Clinical Findings Intake & Output: Intake & Output 03/30/16 03/30/16 03/31/16 15:59 23:59 07:59 Intake Total 2226 / 2226 Output Total 275 / 275 Balance 1950 / 1950 Weight 101.7 kg - Attending Attestation I examined this patient and my medical decision-making was reviewed with the COMMUNITY PLACEMENT WORKER/PA/Advanced Practice Nurse/Resident Physician. I agree with the documented findings, disposition and treatment plan as described except to the extent set forth below. I spent 40 min of Critical Care time with this patient. It involved decision making of high complexity to assess, manipulate, and support vital organ system failure and/or to prevent further life threatening deterioration of the patient' s condition. The time involved in the performance of separately reportable procedures was not counted toward critical care time. Patient seen and examined at bedside Labs, radiology, chart personally reviewed. All lines examined without evidence of infection. Neuro: Intubated and Sedated. Does move all extremities spontaneously adjust sedation for goal RASS (-2) daily sedation holiday Pulm: acute on chronic hypoxic hypercarbic respirtaory failure likely exacerbation of advanced underlying COPD +/_ PNA. vented for respiratory failure. adjusted for respiratory acidosis and LTV strategy including decrease TV increase RR repeat ABG pending. start BDs and steroids Cards: Distributive SHock now on pressors. ECG w/o STEMI; Trop + c/w NSTEMI now peaked likely supply demand. Cards consulted. on heparin and asa pending eval. ECHO pending. FEN-GI: NPO start GI prophylaxis Renal: no [place] good UOP cont to monitor ID: concern for Septic Shock started on V/Z/L cultures pending Heme/Onc: cont DVT prophylaxis Endo: glucose monitored start SSi Integ: skin care per icu Protocol to prevent skin ulcers. CODE: Full Code. Daughter Gordon updated at bedside.
[2016-03-31] MEDS: Dexmedetomidine HCl 400 MCG/100 ML MLS IVC SCH ×3 (08:31→22:47)
[2016-03-31] MEDS: MethylPREDNISolone 40 MG/ML VIAL IVP SCH ×2 (08:31→16:37)
[2016-03-31] MEDS: Pantoprazole 40 MG VIAL IVPB SCH (08:31)
[2016-03-31] MEDS ORDERED: *HR* Rocuronium Bromide 100 MG/10 ML VIAL IVC ONE (08:52)
[2016-03-31] MEDS ORDERED: *HR* Etomidate 40 MG/20 ML VIAL IVP ONE (08:52)
[2016-03-31 09:22] LABS: ABG Base Excess 3.1 mEq/L (-2.0 to 3.0); ABG HCO3 32.5 mEQ/L (21-27); ABG Oxygen Saturation 98 % (95-98); ABG PH 7.25 pH Units (7.32-7.45); ABG PO2 129 mmHg (85-104); ABG TCO2 34.8 mEq/L (20-26)
[2016-03-31 09:23] LABS: ABG PCO2 74 mmHg (35-45)
[2016-03-31 09:24] LABS: Blood Gas FiO2 50 %
--- NOTE | 2016-03-31 10:02 | Cardiology Consult Note ---
Date of Encounter: 03/31/16 Time of Encounter: 12:08 Assessment and Plan (1) Non-STEMI (non-ST elevated myocardial infarction) Current Visit: Yes Status: Acute NSTEMI in the presence of hypercapnic respiratory failure requiring intubation and shock currently requiring vasopressor support. EKG Sinus tachycardia with [place] depressions Leads II, III, aVF, ST depressions V2 -V5 Troponin 0.18, 2.93, 2.62. Likely demand ischemia in the setting of respiratory failure. Patient currently on heparin drip -> agree to continue Echo pending. Continue supportive care. Discussion w patient/family: The assessment and plan as outlined above was discussed with the patient and/or family members who expressed understanding and agreement. All questions were answered. Thank you for involving us in the care of your patient. Please call with any questions. History of Present Illness Consult date: 03/31/16 Requesting physician: Chemo Dwyer Consult reason: NSTEMI Chief complaint: Respiratory Distress History of present illness: Ms. Cook is a 65 year old female hx of COPD, HTN, [place], HLD, Vit D deficiency , Tobacco abuse who presented to the hospital d/t respiratory distress. History is obtained from prior documentation as the patient is currently intubated. It appears she presented with AMS 2/2 hypercapneic respiratory failure requiring emergent intubation. ABG -> pH 7.11, CO2 126, HCO3 40. It appears that patient was seen on 03/27/16 with complaints of body aches, chills, runny nose, wheezing and slight headache. Patient was started on Zithromax and Prednisone. Patient had an elevated d dimer prompting CTA evaluation. EK03/31/16 01:26 demonstrates Sinus tachycardia with a rate of ~115. Normal axis. [place] depression Leads II, III, aVF. ST depressions in Leads V2-V5. No ST elevations. CTA: As per radiology read: No acute pulmonary thromboembolus. Bilateral bronchitis and bronchiolitis. Mildly enlarged mediastinal and right hilar adenopathy, likely reactive. Troponin: 0.18, 2.93, 2.62. D Dimer 1079. BNP 58 Past Med Surg Social Fam HX - Past Medical History Source: old records reviewed Medical history: COPD, coronary artery disease, GERD, hyperlipidemia, other Psychiatric history: anxiety - Past Surgical History Surgical History: hysterectomy - Social History Smoking Status: Current every day smoker Packs per day: 2 Smokeless Tobacco Status: No Alcohol use: none Drug use: none - Family History Father Hx Family Cardiac Disorders: Yes Hx Family Respiratory Disorders: No Hx Family Endocrine Disorder: Yes (possible diabetic) Medications and Allergies Albuterol Sulfate [Albuterol Inhaler] 1 puff IH PRN PRN 08/09/15 [History] Alprazolam [Xanax 0.25 MG Tablet] 0.25 - 0.5 mg PO BID PRN 08/09/15 [History] Potassium Chloride [Klor-Con Sprinkle] 10 meq PO DAILY 08/09/15 [History] Tiotropium [Spiriva] 18 mcg IH DAILY 08/09/15 [History] Atorvastatin Calcium [Lipitor] 20 mg PO HS 08/12/15 [History] Ipratropium/Albuterol Neb [Duoneb] 3 ml IH Q6HR 08/12/15 [History] Losartan/Hydrochlorothiazide [Hyzaar 100-25 Tablet] 1 tab PO DAILY 08/12/15 [ History] Omeprazole [PriLOSEC] 20 mg PO DAILY 08/12/15 [History] Theophylline Anhydrous [Theophylline] 200 mg PO DAILY 08/12/15 [History] Azithromycin [Azithromycin 6-Tab Pack] 250 mg PO PER PKG DI 03/30/16 [History] Cholecalciferol (D-3) [Vitamin D] 2,000 unit PO DAILY 03/30/16 [History] Fluticasone/Salmeterol [Advair 250-50 Diskus] 1 puff IH BID 03/30/16 [History] Metoprolol XL (24 HR) Succ [Toprol XL] 100 mg PO DAILY 03/30/16 [History] PredniSONE [Deltasone] 40 mg PO DAILY 03/30/16 [History] Torsemide [Demadex] 10 - 20 mg PO DAILY PRN 03/30/16 [History] Allergies No Known Allergies Allergy (Verified 08/09/15 16:58) ROS unobtainable: due to mental status All Systems Review: A 10-system review of systems was performed and is negative for pertinent findings except as documented above in the HPI. Physical Examination Vital Signs, Last 4 Hours Temp Pulse Resp BP Pulse Ox 03/31/16 09:47 98.3 F 03/31/16 09:21 16 92/38 100 03/31/16 09:16 22 92/38 100 03/31/16 09:09 59 22 92/38 100 03/31/16 08:28 58 22 82/51 100 03/31/16 08:16 16 73/46 100 General: Other (Intubated and Sedated) HEENT: Atraumatic, Normocephaly, Mucus Membranes Moist Neck: No JVD Cardiac: Reg Rate and Rhythm, Normal S1 and S2, No Murmur Lungs: Other (Diminished breath sounds with end expiratory wheezing) Neuro: Other (Intubated and Sedated) Abdomen: Soft Skin: No rashes noted on visualized skin Extremities: No Clubbing, No Cyanosis, No Edema Results 03/31/16 02:34 03/31/16 02:38 Lab Results 03/31/16 03/31/16 03/31/16 02:34 02:38 02:38 WBC 15.5 H Hgb 13.6 D Hct 41.6 Plt Count 276 INR APTT Sodium 130 L Potassium 4.2 Chloride 93 L Carbon Dioxide 29 BUN 11 Creatinine 0.92 Glucose 168 H Calcium 7.8 L D Magnesium 1.4 L Troponin I 2.93 H* 03/31/16 03/31/16 03/31/16 03:38 08:06 08:06 WBC Hgb Hct Plt Count INR 1.1 APTT 28.4 50.2 H D Sodium Potassium Chloride Carbon Dioxide BUN Creatinine Glucose Calcium Magnesium Troponin I 2.62 H* - Imaging and Cardiology Chest Xray: report reviewed Other Results: CTA chest - EKG Interpretation EKG results cardiology: personally reviewed (EK03/31/16 01:26 demonstrates Sinus tachycardia with a rate of ~115. Normal axis. [place] depression Leads II, III , aVF. ST depressions in Leads V2-V5. ST elevations appear elevated in Leads II , III, aVF however not elevated above T-P interval.) Consult Discharge Plan - Plan Referrals: NO,PCP [Primary Care Provider] -
[2016-03-31] MEDS: Norepinephrine 4 MG in D5% in Water 250 ML IVC SCH (10:35)
[2016-03-31] MEDS: Magnesium Sulfate 2 GM in D5% in Water 100 ML IVPB PRN ×2 (10:37→17:54)
[2016-03-31] MEDS ORDERED: Lacri-Lube 3.5 GM TUBE BOTH EYES PRN (11:07)
--- NOTE | 2016-03-31 11:20 | Procedure Note ---
Date of procedure: 03/31/16 Pre-op diagnosis: hypotension Post-op diagnosis: same Procedure: The procedure was considered emergent Verbal consent was obtained via telephone from the family. The right internal jugular vein was surveyed using ultrasound and deemed to be a suitable target. The patient was cleaned and draped in a usual sterile fashion. Under ultrasound guidance the introducer needle was passed into the right internal jugular vein. Dark red, non-pulsatile blood was returned. The guidewire was passed through the needle and entered without resistance. The needle was removed and a shannon in the skin was made using a scalpel. The dilator was passed over the guidewire and the soft tissues were dilated. The dilator was removed and a central venous catheter was passed over the guidewire. The guidewire was removed intact. All 3 ports were tested and found to draw blood and flush easily. The catheter was sutured in place. Biopatch and sterile dressing was applied. CXR showed the catheter in good position within the SVC, no pneumothorax is present. The patient tolerated the procedure well and there were no immediate complications. Anesthesia: AMBER, local Surgeon: Renato Erickson Estimated blood loss (cc): 5 IV fluids (cc): 25 Pathology: none sent Condition: critical Disposition: ICU
[2016-03-31] MEDS: Lacri-Lube 3.5 GM TUBE BOTH EYES SCH ×3 (11:26→20:24)
--- NOTE | 2016-03-31 11:41 | Electrocardiograph Report ---
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
[2016-03-31] MEDS ORDERED: Dextrose Gel 15 GM PO PRN ×2 (11:43)
[2016-03-31] MEDS ORDERED: *HR* Dextrose 50 % in Water (Syg) 50 ML SYRINGE IVP PRN (11:43)
[2016-03-31] MEDS ORDERED: D5% in Water 1,000 ML IV PRN (11:43)
--- NOTE | 2016-03-31 11:44 | Electrocardiograph Report ---
[facility] Test Date: 2016-03-31 Pat Name: CLAUDE HARRISON Department: 109 Room: 11 Gender: F Coil Tester: ENRIQUETA : 1950 Requested By: Ulises Morejon Order Number: [id number] Reading MD: Chaitanya Flores Measurements Intervals [place] Rate: 85 P: 83 ND: 147 QRS: 79 QRSD: 80 T: 80 QT: 389 QTc: 432 Interpretive Statements SINUS RHYTHM POSSIBLE PERICARDITIS Electronically Signed On 03-31-16 11:43:26 EST by Chaitanya Flores
--- NOTE | 2016-03-31 11:44 | Electrocardiograph Report ---
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
[2016-03-31] MEDS ORDERED: Vancomycin 1,500 MG in D5% in Water 250 ML IVPB SCH (12:00)
[2016-03-31] MEDS ORDERED: Ipratropium/Albuterol Neb 3 ML ONE ×2 (12:25→16:32)
[2016-03-31] MEDS: Ipratropium/Albuterol Neb 3 ML IH SCH ×5 (12:25→23:39)
[2016-03-31] MEDS: Vancomycin 1,500 MG in D5% in Water 250 ML IVPB SCH (12:45)
[2016-03-31] MEDS: Insulin LISPRO 300 UNITS/3 ML VIAL SQ SCH ×2 (12:47→17:55)
[2016-03-31 13:11] LABS: ABG Base Excess 1.7 mEq/L (-2.0 to 3.0); ABG Oxygen Saturation 96 % (95-98); ABG PCO2 55 mmHg (35-45); ABG PH 7.33 pH Units (7.32-7.45); ABG PO2 86 mmHg (85-104); ABG TCO2 30.7 mEq/L (20-26)
[2016-03-31 13:12] LABS: Blood Gas FiO2 40 %
[2016-03-31] MEDS ORDERED: Perflutren Lipid Microsphere 1.3 ML in 0.9 % Sodium Chloride 8.7 ML IVP ONE (14:43)
[2016-03-31] MEDS ORDERED: Perflutren Lipid Microsphere 2 ML VIAL ONE (14:45)
[2016-03-31 15:39] LABS: Basophils % 0.1 %; Hematocrit 40.3 % (35.3-44.9); Hemoglobin 13.3 g/dL (11.5-15.4); Immature Granulocytes % 0.8 % (0-4); Lymphocytes % 3.8 %; Mean Corpuscular Volume 97.1 fL (83.0-100.0); Mean Platelet Volume 9.3 fL (9.4-12.4); Monocytes % 3.9 %; Platelet Count 304 K/mcL (140-400); Red Blood Count 4.15 M/mcL (3.82-4.97); Red Cell Distribution Width 13.6 % (11.5-14.5); Segmented Neutrophils % 91.4 %
[2016-03-31 15:40] LABS: Lymphocytes # 0.6 K/mcL (0.6-4.6); Monocytes # 0.7 K/mcL (0.0-1.3); Neutrophils # 15.3 K/mcL (1.6-8.9)
[2016-03-31 15:45] LABS: Ionized Calcium 1.03 mmol/L (1.15-1.35)
[2016-03-31 15:53] LABS: Albumin 2.5 g/dL (3.5-5.0); Albumin/Globulin Ratio 0.7 (1.1-2.2); Bilirubin,Total 0.3 mg/dL (0.2-1.2); Calcium 7.9 mg/dL (8.6-10.8); Globulin 3.5 g/dL (2.4-3.5); Magnesium 1.7 mg/dL (1.6-2.6); Phosphorous 3.2 mg/dL (2.3-4.7); Potassium 3.6 mEq/L (3.5-4.5)
[2016-03-31 16:51] LABS: Adenovirus Not Detected (Not Detect); Bordetella Pertussis Not Detected (Not Detect); Chlamydophila pneumoniae Not Detected (Not Detect); Coronavirus 229E Not Detected (Not Detect); Coronavirus HKU1 Not Detected (Not Detect); Coronavirus NL63 Not Detected (Not Detect); Coronavirus OC43 ***DETECTED*** (Not Detect); Human Metapneumovirus Not Detected (Not Detect); Human Rhinovirus/Enterovirus Not Detected (Not Detect); Influenza A Subtype 2009 H1 Not Detected (Not Detect); Influenza A Untypeable Not Detected (Not Detect); Influenza B Not Detected (Not Detect); Mycoplasma pneumoniae Not Detected (Not Detect); Parainfluenza Virus 1 Not Detected (Not Detect); Parainfluenza Virus 2 Not Detected (Not Detect); Parainfluenza Virus 3 Not Detected (Not Detect); Parainfluenza Virus 4 Not Detected (Not Detect); Respiratory Syncytial Virus Not Detected (Not Detect)
[2016-03-31 17:21] LABS: ABG Base Excess 3.6 mEq/L (-2.0 to 3.0); ABG HCO3 31.7 mEQ/L (21-27); ABG Oxygen Saturation 97 % (95-98); ABG PCO2 63 mmHg (35-45); ABG PH 7.31 pH Units (7.32-7.45); ABG PO2 100 mmHg (85-104); ABG TCO2 33.6 mEq/L (20-26); Blood Gas FiO2 40 %
[2016-03-31] MEDS: Calcium Gluconate 1,000 MG in D5% in Water 100 ML IVPB PRN (17:54)
[2016-03-31] MEDS: Budesonide/Formoterol 160/4.5 MDI IH SCH (20:15)
[2016-03-31] MEDS: Levofloxacin 500 MG/100 ML 500 MG/100 ML BAG IVPB SCH (21:51)
[2016-03-31] MEDS: Chlorhexidine Rinse 15 ML MOUTHWASH MM SCH (21:51)
[2016-04-01] MEDS: Insulin LISPRO 300 UNITS/3 ML VIAL SQ SCH ×4 (01:11→16:58)
[2016-04-01] MEDS: FentaNYL (PF) 1,000 MCG in 0.9 % Sodium Chloride 80 ML IVC SCH ×3 (01:11→06:48)
[2016-04-01] MEDS: Lacri-Lube 3.5 GM TUBE BOTH EYES SCH ×6 (01:11→21:10)
[2016-04-01] MEDS: MethylPREDNISolone 40 MG/ML VIAL IVP SCH ×3 (01:17→16:54)
[2016-04-01] MEDS: Vancomycin 1,500 MG in D5% in Water 250 ML IVPB SCH ×2 (01:17→12:18)
[2016-04-01] MEDS: Ipratropium/Albuterol Neb 3 ML IH SCH ×9 (03:26→22:16)
[2016-04-01] MEDS: Dexmedetomidine HCl 400 MCG/100 ML MLS IVC SCH ×4 (03:35→20:58)
[2016-04-01] MEDS: 0.9 % Sodium Chloride 1,000 ML IVC SCH ×3 (03:43→16:50)
[2016-04-01] MEDS: Heparin 25,000 UNIT/500 ML D5W 25,000 UNIT/500 ML MLS IVC SCH (03:44)
[2016-04-01 04:17] LABS: Basophils % 0.1 %; Hemoglobin 12.7 g/dL (11.5-15.4); Immature Granulocytes % 0.4 % (0-4); Lymphocytes # 0.7 K/mcL (0.6-4.6); Lymphocytes % 3.7 %; Mean Corpuscular HGB Conc 33.4 g/dL (31.6-35.5); Mean Corpuscular Hemoglobin 32.3 pg (28.0-33.3); Mean Corpuscular Volume 96.7 fL (83.0-100.0); Mean Platelet Volume 9.1 fL (9.4-12.4); Monocytes # 0.9 K/mcL (0.0-1.3); Monocytes % 4.8 %; Neutrophils # 16.4 K/mcL (1.6-8.9); Platelet Count 279 K/mcL (140-400); Red Blood Count 3.93 M/mcL (3.82-4.97); Red Cell Distribution Width 13.2 % (11.5-14.5)
[2016-04-01 04:34] LABS: Ionized Calcium 1.08 mmol/L (1.15-1.35)
[2016-04-01 04:36] LABS: Albumin 2.6 g/dL (3.5-5.0); Albumin/Globulin Ratio 0.7 (1.1-2.2); Bilirubin,Total 0.2 mg/dL (0.2-1.2); Calcium 8.4 mg/dL (8.6-10.8); Globulin 3.5 g/dL (2.4-3.5); Magnesium 2.4 mg/dL (1.6-2.6); Phosphorous 4.2 mg/dL (2.3-4.7); Potassium 3.4 mEq/L (3.5-4.5); Total Protein 6.1 g/dL (6.0-8.3)
[2016-04-01] MEDS: Piperacillin/Tazobactam 3.375 GM in D5% in Water (Mini-Bag+) 100 ML IVPB SCH ×3 (04:59→21:09)
[2016-04-01 05:01] LABS: ABG Base Excess 3.1 mEq/L (-2.0 to 3.0); ABG HCO3 32.1 mEQ/L (21-27); ABG Oxygen Saturation 84 % (95-98); ABG PH 7.27 pH Units (7.32-7.45); ABG PO2 56 mmHg (85-104); ABG TCO2 34.2 mEq/L (20-26); Blood Gas FiO2 40 %
[2016-04-01 05:02] LABS: ABG PCO2 70 mmHg (35-45)
[2016-04-01] MEDS: Calcium Gluconate 1,000 MG in D5% in Water 100 ML IVPB PRN (05:42)
[2016-04-01 06:30] LABS: ABG Base Excess 3.1 mEq/L (-2.0 to 3.0); ABG HCO3 32.5 mEQ/L (21-27); ABG Oxygen Saturation 96 % (95-98); ABG PH 7.25 pH Units (7.32-7.45); ABG PO2 97 mmHg (85-104); ABG TCO2 34.8 mEq/L (20-26)
[2016-04-01 06:31] LABS: Blood Gas FiO2 60 %
[2016-04-01 06:32] LABS: ABG PCO2 74 mmHg (35-45)
--- NOTE | 2016-04-01 07:19 | Pulmonology Progress Note ---
<Renato Erickson - Last Filed: 04/01/16 09:03> Date of Encounter: 04/01/16 Time of Encounter: 07:19 Assessment and Plan (1) Septic shock Current Visit: Yes Status: Acute Improved. Likely gases normalized. Patient is no longer requiring pressor therapy. We will continue antibiotics. Blood culture results are pending. (2) Acute hypercapnic respiratory failure Current Visit: Yes Status: Acute Related to sepsis and acute exacerbation of COPD. Hypercapnia has improved however CO2 is still elevated, this is likely close to the patient's baseline given her severe COPD. She is hypercapnic but awake alert and able to write. (3) Acute exacerbation of chronic obstructive airways disease Current Visit: Yes Status: Acute Possibly related to underlying pneumonia. Patient remains tight and wheezy. We will continue with bronchodilators every 2 hours, increase her steroids to 80 mg every 8 hours. Continue antibiotic coverage with vancomycin, Levaquin, Zosyn. (4) Non-STEMI (non-ST elevated myocardial infarction) Current Visit: Yes Status: Acute Patient elevated troponin that is since leveled off and decreased. Cardiology saw the patient and feel this is related to demand ischemia. Heparin drip as been discontinued. We will continue to hold her beta brenda and arm in the setting of hypotension. We will restart these when able. Echo is pending. (5) Chronic heart failure Current Visit: Yes Status: Acute Patient does not appear to be in acute fluid overload related to heart failure. Her chronic heart failure medications and been held in the setting of hypotension as discussed above. We will restart these when able. Echo is pending. Qualifiers: Heart failure type: unspecified heart failure type Qualified Code(s): I50.9 - Heart failure, unspecified (6) DVT prophylaxis Current Visit: No Status: Acute Heparin drip as been discontinued. We will initiate heparin 5000 units subcutaneous twice a day. Subjective Principal diagnosis: Respiratory failure Interval history: Patient seen and examined at bedside. Patient is awake, alert and comfortable. She is able to communicate via writing and has no complaints this time. She states she is not in any pain. Objective PUL Vital signs: Last Vital Signs Temp 97.4 F L 04/01/16 00:56 Pulse 88 04/01/16 06:00 Resp 26 04/01/16 06:00 BP 90/60 04/01/16 06:00 Pulse Ox 96 04/01/16 06:00 General appearance: no acute distress, alert ENT: oropharynx moist Effort: normal Auscultation: bilateral: diminished breath sounds, wheezes Cardiovascular: regular rate and rhythm Gastrointestinal: normoactive bowel sounds, soft, non-tender, non-distended Extremities: no cyanosis, no edema, no clubbing normal mental status, non-focal exam Ventilator Settings Ventilator Settings: Ventilator Settings, Last 8 Hours Ventilator Mode A/C Ventilator Mode A/C Ventilator Mode A/C Ventilator Mode A/C Ventilator Mode A/C Ventilator Mode A/C Ventilator Mode A/C Ventilator Mode A/C Ventilator Mode A/C Ventilator Mode A/C Ventilator Mode A/C Ventilator Mode A/C Ventilator Mode A/C Ventilator Tidal Volume 400 Setting Ventilator Tidal Volume 400 Setting Ventilator Tidal Volume 400 Setting Ventilator Tidal Volume 385 Setting Ventilator Tidal Volume 385 Setting Ventilator Tidal Volume 385 Setting Ventilator Tidal Volume 385 Setting Ventilator Tidal Volume 385 Setting Ventilator Tidal Volume 385 Setting Ventilator Tidal Volume 385 Setting Ventilator Tidal Volume 385 Setting Ventilator Tidal Volume 385 Setting Ventilator Tidal Volume 385 Setting Ventilator Respiratory Rate 26 Setting Ventilator Respiratory Rate 26 Setting Ventilator Respiratory Rate 26 Setting Ventilator Respiratory Rate 26 Setting Ventilator Respiratory Rate 26 Setting Ventilator Respiratory Rate 26 Setting Ventilator Respiratory Rate 26 Setting Ventilator Respiratory Rate 26 Setting Ventilator Respiratory Rate 26 Setting Ventilator Respiratory Rate 26 Setting Ventilator Respiratory Rate 26 Setting Ventilator Respiratory Rate 26 Setting Ventilator Respiratory Rate 26 Setting Actual Respiratory Rate 26 Actual Respiratory Rate 26 Actual Respiratory Rate 26 Actual Respiratory Rate 26 Actual Respiratory Rate 26 Actual Respiratory Rate 26 Actual Respiratory Rate 26 Actual Respiratory Rate 27 Actual Respiratory Rate 26 Actual Respiratory Rate 26 Actual Respiratory Rate 26 Positive End Expiratory 5 Pressure Positive End Expiratory 5 Pressure Positive End Expiratory 5 Pressure Positive End Expiratory 5 Pressure Positive End Expiratory 5 Pressure Positive End Expiratory 5 Pressure Positive End Expiratory 5 Pressure Positive End Expiratory 5 Pressure Positive End Expiratory 5 Pressure Positive End Expiratory 5 Pressure Positive End Expiratory 5 Pressure Positive End Expiratory 5 Pressure Positive End Expiratory 5 Pressure Peak Inspiratory Airway 32 Pressure Peak Inspiratory Airway 38 Pressure Peak Inspiratory Airway 37 Pressure Peak Inspiratory Airway 32 Pressure Peak Inspiratory Airway 25 Pressure Peak Inspiratory Airway 32 Pressure Peak Inspiratory Airway 25 Pressure Peak Inspiratory Airway 25 Pressure Peak Inspiratory Airway 34 Pressure Peak Inspiratory Airway 34 Pressure Peak Inspiratory Airway 34 Pressure Results - Laboratory Findings CBC and BMP: 04/01/16 04:00 04/01/16 04:00 ABG ABG pH 7.25 pH Units (7.32-7.45) L 04/01/16 06:20 ABG pCO2 74 mmHg (35-45) H* 04/01/16 06:20 ABG pO2 97 mmHg (85-104) 04/01/16 06:20 ABG O2 Saturation 96 % (95-98) 04/01/16 06:20 PT/INR, D-dimer PT 12.0 Seconds (9.4-12.1) 03/31/16 03:38 D-Dimer 1079 ng/mLFEU (0-500) H 03/30/16 21:52 Abnormal lab findings: Abnormal lab results WBC 18.0 K/mcL (4.3-11.1) H 04/01/16 04:00 MPV 9.1 fL (9.4-12.4) L 04/01/16 04:00 Neutrophils # 16.4 K/mcL (1.6-8.9) H 04/01/16 04:00 APTT 79.9 Seconds (26.0-36.0) H 03/31/16 22:35 D-Dimer 1079 ng/mLFEU (0-500) H 03/30/16 21:52 ABG pH 7.25 pH Units (7.32-7.45) L 04/01/16 06:20 ABG pCO2 74 mmHg (35-45) H* 04/01/16 06:20 ABG HCO3 32.5 mEQ/L (21-27) H 04/01/16 06:20 ABG Total CO2 34.8 mEq/L (20-26) H 04/01/16 06:20 ABG Base Excess 3.1 mEq/L (-2.0 to 3.0) H 04/01/16 06:20 Sodium 129 mEq/L (136-145) L 04/01/16 04:00 Potassium 3.4 mEq/L (3.5-4.5) L 04/01/16 04:00 Chloride 92 mEq/L (98-109) L 04/01/16 04:00 BUN 24 mg/dL (7-20) H 04/01/16 04:00 Creatinine 1.22 mg/dL (0.57-1.11) H 04/01/16 04:00 Est GFR ( Amer) 54 (> 60) L 04/01/16 04:00 Est GFR (Non-Af Amer) 44 (> 60) L 04/01/16 04:00 Glucose 198 mg/dL (70-99) H 04/01/16 04:00 POC Glucose 181 (58-89) H 04/01/16 00:34 Calculated Osmolality 278 (280-300) L 04/01/16 04:00 Calcium 8.4 mg/dL (8.6-10.8) L 04/01/16 04:00 Ionized Calcium 1.08 mmol/L (1.15-1.35) L 04/01/16 04:00 Troponin I 2.62 ng/mL (0-0.03) H* 03/31/16 08:06 Albumin 2.6 g/dL (3.5-5.0) L 04/01/16 04:00 Albumin/Globulin Ratio 0.7 (1.1-2.2) L 04/01/16 04:00 Coronavirus OC43 (PCR) DETECTED (Not Detect) A 03/31/16 15:15 - Microbiology Findings Microbiology Findings: Microbiology, Last 48 Hours 03/31/16 06:29 Sputum Culture - Preliminary Sputum - Clinical Findings Intake & Output: Intake & Output 03/31/16 03/31/16 04/01/16 15:59 23:59 07:59 Intake Total 1250 / 1250 1267 / 1267 1480 / 1480 Output Total 475 / 475 150 / 150 1050 / 1050 Balance 775 / 775 1117 / 1117 430 / 430 Weight 102 kg Consult Discharge Plan - Plan Referrals: NO,PCP [Primary Care Provider] - <Tanner Perera - Last Filed: 04/01/16 17:32> Objective PUL Vital signs: Last Vital Signs Temp 96.6 F L 04/01/16 08:15 Pulse 88 04/01/16 06:00 Resp 26 04/01/16 06:00 BP 90/60 04/01/16 06:00 Pulse Ox 96 04/01/16 06:00 Ventilator Settings Ventilator Settings: Ventilator Settings, Last 8 Hours Ventilator Mode A/C Ventilator Mode A/C Ventilator Mode A/C Ventilator Mode A/C Ventilator Mode A/C Ventilator Mode A/C Ventilator Mode A/C Ventilator Mode A/C Ventilator Mode A/C Ventilator Mode A/C Ventilator Mode A/C Ventilator Mode A/C Ventilator Tidal Volume 400 Setting Ventilator Tidal Volume 400 Setting Ventilator Tidal Volume 400 Setting Ventilator Tidal Volume 400 Setting Ventilator Tidal Volume 385 Setting Ventilator Tidal Volume 385 Setting Ventilator Tidal Volume 385 Setting Ventilator Tidal Volume 385 Setting Ventilator Tidal Volume 385 Setting Ventilator Tidal Volume 385 Setting Ventilator Tidal Volume 385 Setting Ventilator Tidal Volume 385 Setting Ventilator Respiratory Rate 18 Setting Ventilator Respiratory Rate 26 Setting Ventilator Respiratory Rate 26 Setting Ventilator Respiratory Rate 26 Setting Ventilator Respiratory Rate 26 Setting Ventilator Respiratory Rate 26 Setting Ventilator Respiratory Rate 26 Setting Ventilator Respiratory Rate 26 Setting Ventilator Respiratory Rate 26 Setting Ventilator Respiratory Rate 26 Setting Ventilator Respiratory Rate 26 Setting Ventilator Respiratory Rate 26 Setting Actual Respiratory Rate 26 Actual Respiratory Rate 26 Actual Respiratory Rate 26 Actual Respiratory Rate 26 Actual Respiratory Rate 26 Actual Respiratory Rate 26 Actual Respiratory Rate 26 Actual Respiratory Rate 27 Actual Respiratory Rate 26 Positive End Expiratory 5 Pressure Positive End Expiratory 5 Pressure Positive End Expiratory 5 Pressure Positive End Expiratory 5 Pressure Positive End Expiratory 5 Pressure Positive End Expiratory 5 Pressure Positive End Expiratory 5 Pressure Positive End Expiratory 5 Pressure Positive End Expiratory 5 Pressure Positive End Expiratory 5 Pressure Positive End Expiratory 5 Pressure Positive End Expiratory 5 Pressure Peak Inspiratory Airway 32 Pressure Peak Inspiratory Airway 38 Pressure Peak Inspiratory Airway 37 Pressure Peak Inspiratory Airway 32 Pressure Peak Inspiratory Airway 25 Pressure Peak Inspiratory Airway 32 Pressure Peak Inspiratory Airway 25 Pressure Peak Inspiratory Airway 25 Pressure Peak Inspiratory Airway 34 Pressure Results - Laboratory Findings CBC and BMP: 04/01/16 04:00 04/01/16 16:15 ABG ABG pH 7.23 pH Units (7.32-7.45) L 04/01/16 08:10 ABG pCO2 78 mmHg (35-45) H* 04/01/16 08:10 ABG pO2 87 mmHg (85-104) 04/01/16 08:10 ABG O2 Saturation 95 % (95-98) 04/01/16 08:10 PT/INR, D-dimer PT 12.0 Seconds (9.4-12.1) 03/31/16 03:38 D-Dimer 1079 ng/mLFEU (0-500) H 03/30/16 21:52 Abnormal lab findings: Abnormal lab results WBC 18.0 K/mcL (4.3-11.1) H 04/01/16 04:00 MPV 9.1 fL (9.4-12.4) L 04/01/16 04:00 Neutrophils # 16.4 K/mcL (1.6-8.9) H 04/01/16 04:00 APTT 79.9 Seconds (26.0-36.0) H 03/31/16 22:35 D-Dimer 1079 ng/mLFEU (0-500) H 03/30/16 21:52 ABG pH 7.23 pH Units (7.32-7.45) L 04/01/16 08:10 ABG pCO2 78 mmHg (35-45) H* 04/01/16 08:10 ABG HCO3 32.7 mEQ/L (21-27) H 04/01/16 08:10 ABG Total CO2 35.1 mEq/L (20-26) H 04/01/16 08:10 Sodium 129 mEq/L (136-145) L 04/01/16 04:00 Potassium 3.4 mEq/L (3.5-4.5) L 04/01/16 04:00 Chloride 92 mEq/L (98-109) L 04/01/16 04:00 BUN 24 mg/dL (7-20) H 04/01/16 04:00 Creatinine 1.22 mg/dL (0.57-1.11) H 04/01/16 04:00 Est GFR ( Amer) 54 (> 60) L 04/01/16 04:00 Est GFR (Non-Af Amer) 44 (> 60) L 04/01/16 04:00 Glucose 198 mg/dL (70-99) H 04/01/16 04:00 POC Glucose 181 (58-89) H 04/01/16 00:34 Calculated Osmolality 278 (280-300) L 04/01/16 04:00 Calcium 8.4 mg/dL (8.6-10.8) L 04/01/16 04:00 Ionized Calcium 1.08 mmol/L (1.15-1.35) L 04/01/16 04:00 Troponin I 2.62 ng/mL (0-0.03) H* 03/31/16 08:06 Albumin 2.6 g/dL (3.5-5.0) L 04/01/16 04:00 Albumin/Globulin Ratio 0.7 (1.1-2.2) L 04/01/16 04:00 Coronavirus OC43 (PCR) DETECTED (Not Detect) A 03/31/16 15:15 - Microbiology Findings Microbiology Findings: Microbiology, Last 48 Hours 03/31/16 06:29 Sputum Culture - Preliminary Sputum - Clinical Findings Intake & Output: Intake & Output 03/31/16 04/01/16 04/01/16 23:59 07:59 15:59 Intake Total 1267 / 1267 1480 / 1480 Output Total 150 / 150 1050 / 1050 300 / 300 Balance 1117 / 1117 430 / 430 -300 / -300 Weight 102 kg - Attending Attestation I examined this patient and my medical decision-making was reviewed with the [employer]/PA/Advanced Practice Nurse/Resident Physician. I agree with the documented findings, disposition and treatment plan as described except to the extent set forth below. I spent 35 min of Critical Care time with this patient. It involved decision making of high complexity to assess, manipulate, and support vital organ system failure and/or to prevent further life threatening deterioration of the patient' s condition. The time involved in the performance of separately reportable procedures was not counted toward critical care time. Patient seen and examined at bedside Labs, radiology, chart personally reviewed. All lines examined without evidence of infection. Neuro: Sedated on vent. Opens eyes able to write on note pad. Appears comfortable. COnt Goal RASS (-2) Pulm: acute on chronic hypoxic hypercarbic respiratory failure likely exacerbation of advanced underlying COPD +/_ PNA. vented for respiratory failure. adjusted for respiratory acidosis and LTV strategy including decrease TV increase RR repeat Permissive acidosis cont BDs and steroids Cards: Distributive Shock now weaned off pressors. ECG w/o STEMI; Trop + c/w NSTEMI now peaked likely supply demand. Cards consulted. ECHO ordered. No acute intervention stop ACS protocol FEN-GI: NPO start GI prophylaxis Renal: no [place] good UOP cont to monitor may need gentle diuresis later today ID: started on V/Z/L cultures pending now showing + Coronavirus which is likely etiology. cont levaquin stop Vanc/Zosyn Heme/Onc: cont DVT prophylaxis Endo: glucose monitored cont SSi Integ: skin care per icu Protocol to prevent skin ulcers. CODE: Full Code. Daughter Gordon updated at bedside.
[2016-04-01 08:32] LABS: ABG Base Excess 2.8 mEq/L (-2.0 to 3.0); ABG HCO3 32.7 mEQ/L (21-27); ABG Oxygen Saturation 95 % (95-98); ABG PH 7.23 pH Units (7.32-7.45); ABG PO2 87 mmHg (85-104); ABG TCO2 35.1 mEq/L (20-26)
[2016-04-01 08:37] LABS: ABG PCO2 78 mmHg (35-45); Blood Gas FiO2 60 %; Blood Gas PEEP 5 cm H2O; Blood Gas Respiration Rate 18; Blood Gas VT 400 cc
[2016-04-01] MEDS: Budesonide/Formoterol 160/4.5 MDI IH SCH ×2 (09:40→19:27)
[2016-04-01] MEDS: Aspirin 81 MG TAB.CHEW PO SCH (09:57)
[2016-04-01] MEDS: Pantoprazole 40 MG VIAL IVPB SCH (09:57)
[2016-04-01] MEDS: Chlorhexidine Rinse 15 ML MOUTHWASH MM SCH ×2 (09:57→21:10)
[2016-04-01] MEDS: Norepinephrine 4 MG in D5% in Water 250 ML IVC SCH (09:58)
--- NOTE | 2016-04-01 11:11 | Cardiology Progress Note ---
Date of Encounter: 04/01/16 Time of Encounter: 11:09 Assessment and Plan (1) Non-STEMI (non-ST elevated myocardial infarction) Current Visit: Yes Status: Acute Likely secondary to resp. failure. Echo pending. Heparin has been stopped secondary to dark NG tube. Discussion w patient/family: The assessment and plan as outlined above was discussed with the patient and/or family members who expressed understanding and agreement. All questions were answered. Thank you for involving us in the care of your patient. Please call with any questions. Subjective Principal diagnosis: Respiratory failure Interval history: Continues on vent. Continues to deny chest pain. Objective Vital Signs, Last 4 Hours Temp Pulse Resp BP Pulse Ox 04/01/16 10:25 103 18 84/53 92 L 04/01/16 09:43 26 90/60 96 04/01/16 09:00 83 22 89/60 93 L 04/01/16 08:50 83 26 99/58 94 L 04/01/16 08:15 96.6 F L General: Other (On vent) HEENT: Atraumatic, Normocephaly, Mucus Membranes Moist Neck: No JVD, Normal carotid pulses Cardiac: Reg Rate and Rhythm, Normal S1 and S2, No Murmur Lungs: Other (decreased at bases, ronchi) Neuro: Alert and responsive, No focal deficits noted Abdomen: Soft, Non-Tender Results 04/01/16 04:00 04/01/16 04:00 Lab Results 03/31/16 03/31/16 03/31/16 15:15 15:15 15:15 WBC 16.7 H Hgb 13.3 Hct 40.3 Plt Count 304 APTT 59.6 H Sodium 130 L Potassium 3.6 Chloride 93 L Carbon Dioxide 27 BUN 18 Creatinine 1.11 Glucose 272 H Calcium 7.9 L Magnesium 1.7 Total Bilirubin 0.3 AST 32 ALT 39 Alkaline Phosphatase 103 03/31/16 04/01/16 04/01/16 22:35 04:00 04:00 WBC 18.0 H Hgb 12.7 Hct 38.0 Plt Count 279 APTT 79.9 H Sodium 129 L Potassium 3.4 L Chloride 92 L Carbon Dioxide 28 BUN 24 H Creatinine 1.22 H Glucose 198 H Calcium 8.4 L Magnesium 2.4 Total Bilirubin 0.2 AST 22 ALT 31 Alkaline Phosphatase 86 Consult Discharge Plan - Plan Referrals: NO,PCP [Primary Care Provider] -
[2016-04-01 11:16] LABS: ABG Base Excess 3.5 mEq/L (-2.0 to 3.0); ABG HCO3 33.5 mEQ/L (21-27); ABG Oxygen Saturation 91 % (95-98); ABG PH 7.23 pH Units (7.32-7.45); ABG PO2 71 mmHg (85-104)
[2016-04-01 11:22] LABS: ABG PCO2 80 mmHg (35-45)
[2016-04-01 11:23] LABS: Blood Gas FiO2 60 %; Blood Gas Respiration Rate 18; Blood Gas VT 400 cc
[2016-04-01 16:38] LABS: Albumin 2.5 g/dL (3.5-5.0); BUN/Creatinine Ratio 24 (6-26); Blood Urea Nitrogen 23 mg/dL (7-20); Calcium 8.9 mg/dL (8.6-10.8); Carbon Dioxide 30 mEq/L (19-29); Chloride 93 mEq/L (98-109); Glucose 166 mg/dL (70-99); Osmolality,Calculated 275 (280-300); Phosphorous 3.2 mg/dL (2.3-4.7); Potassium 3.9 mEq/L (3.5-4.5); Sodium 129 mEq/L (136-145); eGFR For African Americans > 60 (> 60); eGFR For Non-African Americans 59 (> 60)
[2016-04-01] MEDS: *HR* Heparin 5,000 UNIT/ML VIAL SQ SCH (16:54)
[2016-04-01] MEDS ORDERED: Furosemide 20 MG/2 ML VIAL IVP ONE (17:09)
[2016-04-01] MEDS: FentaNYL (PF) 3,000 MCG in 0.9 % Sodium Chloride 240 ML IVC SCH (21:45)
[2016-04-02] MEDS: Ipratropium/Albuterol Neb 3 ML IH SCH ×13 (00:05→23:13)
[2016-04-02] MEDS: Levofloxacin 500 MG/100 ML 500 MG/100 ML BAG IVPB SCH ×2 (00:28→22:27)
[2016-04-02] MEDS ORDERED: methylPREDNISolone 125 MG/2 ML VIAL ONE (00:35)
[2016-04-02] MEDS: MethylPREDNISolone 40 MG/ML VIAL IVP SCH ×3 (00:38→17:12)
[2016-04-02] MEDS: 0.9 % Sodium Chloride 1,000 ML IVC SCH ×3 (00:46→07:35)
[2016-04-02] MEDS: Lacri-Lube 3.5 GM TUBE BOTH EYES SCH ×6 (01:00→20:30)
[2016-04-02] MEDS: Dexmedetomidine HCl 400 MCG/100 ML MLS IVC SCH ×5 (02:00→18:07)
[2016-04-02] MEDS: Insulin LISPRO 300 UNITS/3 ML VIAL SQ SCH ×4 (03:59→17:09)
[2016-04-02 05:17] LABS: ABG Base Excess 6.8 mEq/L (-2.0 to 3.0); ABG HCO3 35.7 mEQ/L (21-27); ABG Oxygen Saturation 95 % (95-98); ABG PH 7.31 pH Units (7.32-7.45); ABG PO2 83 mmHg (85-104); ABG TCO2 37.9 mEq/L (20-26); Blood Gas FiO2 60 %
[2016-04-02 05:19] LABS: ABG PCO2 71 mmHg (35-45)
[2016-04-02] MEDS: *HR* Heparin 5,000 UNIT/ML VIAL SQ SCH ×2 (05:24→17:11)
[2016-04-02] MEDS: *HR* LORazepam 2 MG/ML VIAL IVP PRN ×3 (05:24→21:24)
[2016-04-02] MEDS: Piperacillin/Tazobactam 3.375 GM in D5% in Water (Mini-Bag+) 100 ML IVPB SCH (05:25)
[2016-04-02 05:52] LABS: Basophils % 0.1 %; Hematocrit 37.8 % (35.3-44.9); Hemoglobin 12.6 g/dL (11.5-15.4); Immature Granulocytes % 0.7 % (0-4); Immature Platelets 2.3 % (1.1-6.1); Lymphocytes # 0.6 K/mcL (0.6-4.6); Lymphocytes % 3.6 %; Mean Corpuscular HGB Conc 33.3 g/dL (31.6-35.5); Mean Corpuscular Hemoglobin 32.6 pg (28.0-33.3); Mean Corpuscular Volume 97.7 fL (83.0-100.0); Monocytes # 0.6 K/mcL (0.0-1.3); Monocytes % 3.2 %; Platelet Count 332 K/mcL (140-400); Red Blood Count 3.87 M/mcL (3.82-4.97); Red Cell Distribution Width 13.5 % (11.5-14.5); Segmented Neutrophils % 92.4 %
[2016-04-02 06:05] LABS: Alanine Aminotransferase 27 Units/L (0-55); Albumin 2.5 g/dL (3.5-5.0); Albumin/Globulin Ratio 0.7 (1.1-2.2); Alkaline Phosphatase 79 Units/L (38-126); Aspartate Amino Transferase 14 Units/L (5-34); BUN/Creatinine Ratio 27 (6-26); Bilirubin,Total 0.2 mg/dL (0.2-1.2); Blood Urea Nitrogen 26 mg/dL (7-20); Calcium 8.7 mg/dL (8.6-10.8); Carbon Dioxide 31 mEq/L (19-29); Chloride 96 mEq/L (98-109); Globulin 3.7 g/dL (2.4-3.5); Glucose 159 mg/dL (70-99); Magnesium 1.8 mg/dL (1.6-2.6); Osmolality,Calculated 282 (280-300); Phosphorous 3.1 mg/dL (2.3-4.7); Sodium 132 mEq/L (136-145); Total Protein 6.2 g/dL (6.0-8.3); eGFR For African Americans > 60 (> 60); eGFR For Non-African Americans 59 (> 60)
[2016-04-02 06:13] LABS: Ionized Calcium 1.13 mmol/L (1.15-1.35)
[2016-04-02] MEDS: Aspirin 81 MG TAB.CHEW PO SCH (07:36)
[2016-04-02] MEDS: Chlorhexidine Rinse 15 ML MOUTHWASH MM SCH ×2 (07:36→20:29)
[2016-04-02] MEDS: Pantoprazole 40 MG VIAL IVPB SCH (07:37)
[2016-04-02] MEDS: Norepinephrine 4 MG in D5% in Water 250 ML IVC SCH (07:37)
[2016-04-02] MEDS ORDERED: Vancomycin 1,250 MG in D5% in Water 250 ML IVPB SCH (08:00)
[2016-04-02] MEDS: Budesonide/Formoterol 160/4.5 MDI IH SCH ×2 (08:05→21:46)
[2016-04-02] MEDS: Vancomycin 1,500 MG in D5% in Water 250 ML IVPB SCH (08:34)
[2016-04-02] MEDS ORDERED: Furosemide 20 MG/2 ML VIAL IVP ONE (09:02)
[2016-04-02] MEDS ORDERED: Aminoglycoside Consult 1 EACH MC ONE (09:05)
[2016-04-02] MEDS: Magnesium Sulfate 2 GM in D5% in Water 100 ML IVPB PRN (09:49)
--- NOTE | 2016-04-02 14:25 | Pulmonology Progress Note ---
Date of Encounter: 04/02/16 Time of Encounter: 09:00 Assessment and Plan (1) Acute exacerbation of chronic obstructive airways disease Current Visit: Yes Status: Acute I spent 35 min of Critical Care time with this patient. It involved decision making of high complexity to assess, manipulate, and support vital organ system failure and/or to prevent further life threatening deterioration of the patient' s condition. The time involved in the performance of separately reportable procedures was not counted toward critical care time. Neuro: Sedated on vent. Opens eyes able to write on note pad and respond to all questions. Appears comfortable. COnt Goal RASS (-2) Pulm: acute on chronic hypoxic hypercarbic respiratory failure likely exacerbation of advanced underlying COPD +/_ PNA. vented for respiratory failure. adjusted for respiratory acidosis and LTV, Permissive hypercarbia. goal sat 89-92% cont BDs and steroids (decrease dose today). SBT planned Cards: Distributive Shock now weaned off pressors. ECG w/o STEMI; Trop + c/w NSTEMI now peaked likely supply demand. Cards consulted. ECHO ordered. No acute intervention stop ACS protocol. Continue aspirin 81 mg and low-dose beta brenda FEN-GI: Continue enteral feedings while intubated continue GI prophylaxis Renal: no [place] good UOP diuresis to a goal -1 L ID: + Coronavirus which is likely etiology. cont levaquin 5 days Heme/Onc: cont DVT prophylaxis Endo: glucose monitored cont SSi Integ: skin care per icu Protocol to prevent skin ulcers. CODE: Full Code. Daughter Gordon updated at bedside. (2) Acute hypercapnic respiratory failure Current Visit: Yes Status: Acute (3) Non-STEMI (non-ST elevated myocardial infarction) Current Visit: Yes Status: Acute (4) Septic shock Current Visit: Yes Status: Acute (5) DVT prophylaxis Current Visit: No Status: Acute (6) HTN (hypertension) Current Visit: No Status: Chronic Qualifiers: Hypertension type: essential hypertension Qualified Code(s): I10 - Essential (primary) hypertension (7) SANJUANA (obstructive sleep apnea) Current Visit: No Status: Chronic Subjective Principal diagnosis: Respiratory failure Interval history: Did well overnight. Much less bronchospasm and improvement of respiratory acidosis. Patient very comfortable on sedation denies complaint family at bedside Objective PUL Vital signs: Last Vital Signs Temp 98.1 F 04/02/16 08:02 Pulse 88 04/02/16 14:00 Resp 21 04/02/16 14:17 BP 100/52 04/02/16 14:00 Pulse Ox 97 04/02/16 14:17 General appearance: no acute distress Effort: normal Auscultation: bilateral: diminished breath sounds, wheezes Cardiovascular: regular rate and rhythm Gastrointestinal: normoactive bowel sounds Integumentary: normal Extremities: no cyanosis normal mental status, non-focal exam mood appropriate Ventilator Settings Ventilator Settings: Ventilator Settings, Last 8 Hours Ventilator Mode A/C Ventilator Mode A/C Ventilator Mode A/C Ventilator Mode A/C Ventilator Mode A/C Ventilator Mode A/C Ventilator Mode A/C Ventilator Mode A/C Ventilator Mode A/C Ventilator Mode A/C Ventilator Mode A/C Ventilator Mode A/C Ventilator Tidal Volume 450 Setting Ventilator Tidal Volume 450 Setting Ventilator Tidal Volume 450 Setting Ventilator Tidal Volume 450 Setting Ventilator Tidal Volume 450 Setting Ventilator Tidal Volume 450 Setting Ventilator Tidal Volume 450 Setting Ventilator Tidal Volume 450 Setting Ventilator Tidal Volume 450 Setting Ventilator Tidal Volume 450 Setting Ventilator Tidal Volume 450 Setting Ventilator Tidal Volume 450 Setting Ventilator Respiratory Rate 18 Setting Ventilator Respiratory Rate 22 Setting Ventilator Respiratory Rate 22 Setting Ventilator Respiratory Rate 22 Setting Ventilator Respiratory Rate 22 Setting Ventilator Respiratory Rate 22 Setting Ventilator Respiratory Rate 22 Setting Ventilator Respiratory Rate 22 Setting Ventilator Respiratory Rate 22 Setting Ventilator Respiratory Rate 22 Setting Ventilator Respiratory Rate 22 Setting Ventilator Respiratory Rate 22 Setting Actual Respiratory Rate 18 Actual Respiratory Rate 22 Actual Respiratory Rate 22 Actual Respiratory Rate 22 Actual Respiratory Rate 22 Actual Respiratory Rate 22 Actual Respiratory Rate 22 Actual Respiratory Rate 22 Actual Respiratory Rate 22 Actual Respiratory Rate 22 Actual Respiratory Rate 22 Actual Respiratory Rate 22 Positive End Expiratory 5 Pressure Positive End Expiratory 5 Pressure Positive End Expiratory 5 Pressure Positive End Expiratory 5 Pressure Positive End Expiratory 5 Pressure Positive End Expiratory 5 Pressure Positive End Expiratory 5 Pressure Positive End Expiratory 5 Pressure Positive End Expiratory 5 Pressure Positive End Expiratory 5 Pressure Positive End Expiratory 5 Pressure Positive End Expiratory 5 Pressure Peak Inspiratory Airway 29 Pressure Peak Inspiratory Airway 29 Pressure Peak Inspiratory Airway 33 Pressure Peak Inspiratory Airway 33 Pressure Peak Inspiratory Airway 36 Pressure Peak Inspiratory Airway 40 Pressure Peak Inspiratory Airway 34 Pressure Peak Inspiratory Airway 30 Pressure Peak Inspiratory Airway 34 Pressure Peak Inspiratory Airway 34 Pressure Peak Inspiratory Airway 38 Pressure Peak Inspiratory Airway 34 Pressure Results - Laboratory Findings CBC and BMP: 04/02/16 05:40 04/02/16 05:40 ABG ABG pH 7.31 pH Units (7.32-7.45) L 04/02/16 04:59 ABG pCO2 71 mmHg (35-45) H* 04/02/16 04:59 ABG pO2 83 mmHg (85-104) L 04/02/16 04:59 ABG O2 Saturation 95 % (95-98) 04/02/16 04:59 PT/INR, D-dimer PT 12.0 Seconds (9.4-12.1) 03/31/16 03:38 D-Dimer 1079 ng/mLFEU (0-500) H 03/30/16 21:52 Abnormal lab findings: Abnormal lab results WBC 17.3 K/mcL (4.3-11.1) H 04/02/16 05:40 MPV 9.0 fL (9.4-12.4) L 04/02/16 05:40 Neutrophils # 16.0 K/mcL (1.6-8.9) H 04/02/16 05:40 APTT 79.9 Seconds (26.0-36.0) H 03/31/16 22:35 D-Dimer 1079 ng/mLFEU (0-500) H 03/30/16 21:52 ABG pH 7.31 pH Units (7.32-7.45) L 04/02/16 04:59 ABG pCO2 71 mmHg (35-45) H* 04/02/16 04:59 ABG pO2 83 mmHg (85-104) L 04/02/16 04:59 ABG HCO3 35.7 mEQ/L (21-27) H 04/02/16 04:59 ABG Total CO2 37.9 mEq/L (20-26) H 04/02/16 04:59 ABG Base Excess 6.8 mEq/L (-2.0 to 3.0) H 04/02/16 04:59 Sodium 132 mEq/L (136-145) L 04/02/16 05:40 Chloride 96 mEq/L (98-109) L 04/02/16 05:40 Carbon Dioxide 31 mEq/L (19-29) H 04/02/16 05:40 BUN 26 mg/dL (7-20) H 04/02/16 05:40 Est GFR (Non-Af Amer) 59 (> 60) L 04/02/16 05:40 BUN/Creatinine Ratio 27 (6-26) H 04/02/16 05:40 Glucose 159 mg/dL (70-99) H 04/02/16 05:40 POC Glucose 180 (58-89) H 04/02/16 11:15 Ionized Calcium 1.13 mmol/L (1.15-1.35) L 04/02/16 05:40 Troponin I 2.62 ng/mL (0-0.03) H* 03/31/16 08:06 Albumin 2.5 g/dL (3.5-5.0) L 04/02/16 05:40 Globulin 3.7 g/dL (2.4-3.5) H 04/02/16 05:40 Albumin/Globulin Ratio 0.7 (1.1-2.2) L 04/02/16 05:40 Vancomycin Trough 21.2 mcg/mL (10-20) H* 04/02/16 00:30 Coronavirus OC43 (PCR) DETECTED (Not Detect) A 03/31/16 15:15 - Microbiology Findings Microbiology Findings: Microbiology, Last 48 Hours 03/31/16 06:29 Sputum Culture - Final Sputum - Clinical Findings Intake & Output: Intake & Output 04/01/16 04/02/16 04/02/16 23:59 07:59 15:59 Intake Total 370 / 370 1798 / 1798 978 / 978 Output Total 1200 / 1200 550 / 550 100 / 100 Balance -830 / -830 1248 / 1248 878 / 878 Weight 103.374 kg Consult Discharge Plan - Plan Referrals: NO,PCP [Primary Care Provider] -
[2016-04-02] MEDS: FentaNYL (PF) 3,000 MCG in 0.9 % Sodium Chloride 240 ML IVC SCH (22:27)
[2016-04-03] MEDS: Insulin LISPRO 300 UNITS/3 ML VIAL SQ SCH ×3 (00:17→11:22)
[2016-04-03] MEDS: MethylPREDNISolone 40 MG/ML VIAL IVP SCH ×2 (00:33→06:15)
[2016-04-03] MEDS: Lacri-Lube 3.5 GM TUBE BOTH EYES SCH ×5 (00:33→13:12)
[2016-04-03] MEDS: Dexmedetomidine HCl 400 MCG/100 ML MLS IVC SCH ×2 (00:34→11:23)
[2016-04-03] MEDS: Ipratropium/Albuterol Neb 3 ML IH SCH ×6 (01:19→11:07)
[2016-04-03] MEDS: *HR* LORazepam 2 MG/ML VIAL IVP PRN (04:00)
[2016-04-03 04:33] LABS: Ionized Calcium 1.16 mmol/L (1.15-1.35)
[2016-04-03 05:00] LABS: Alanine Aminotransferase 23 Units/L (0-55); Alkaline Phosphatase 75 Units/L (38-126); Aspartate Amino Transferase 15 Units/L (5-34); BUN/Creatinine Ratio 36 (6-26); Bilirubin,Total 0.3 mg/dL (0.2-1.2); Blood Urea Nitrogen 35 mg/dL (7-20); Calcium 9.2 mg/dL (8.6-10.8); Carbon Dioxide 31 mEq/L (19-29); Chloride 96 mEq/L (98-109); Glucose 146 mg/dL (70-99); Magnesium 2.2 mg/dL (1.6-2.6); Osmolality,Calculated 291 (280-300); Phosphorous 3.3 mg/dL (2.3-4.7); Potassium 3.8 mEq/L (3.5-4.5); Sodium 135 mEq/L (136-145); eGFR For African Americans > 60 (> 60); eGFR For Non-African Americans 59 (> 60)
[2016-04-03 05:01] LABS: Albumin 2.8 g/dL (3.5-5.0); Albumin/Globulin Ratio 0.8 (1.1-2.2); Globulin 3.4 g/dL (2.4-3.5); Total Protein 6.2 g/dL (6.0-8.3)
[2016-04-03 05:09] LABS: Basophils % 0.1 %; Hemoglobin 12.6 g/dL (11.5-15.4); Immature Granulocytes % 1.4 % (0-4); Lymphocytes # 1.1 K/mcL (0.6-4.6); Lymphocytes % 8.1 %; Mean Corpuscular HGB Conc 33.2 g/dL (31.6-35.5); Mean Corpuscular Hemoglobin 32.2 pg (28.0-33.3); Mean Corpuscular Volume 97.2 fL (83.0-100.0); Mean Platelet Volume 9.3 fL (9.4-12.4); Monocytes # 0.8 K/mcL (0.0-1.3); Neutrophils # 11.8 K/mcL (1.6-8.9); Platelet Count 300 K/mcL (140-400); Red Blood Count 3.91 M/mcL (3.82-4.97); Segmented Neutrophils % 84.4 %
[2016-04-03 05:49] LABS: ABG PCO2 59 mmHg (35-45); ABG PO2 74 mmHg (85-104)
[2016-04-03 05:50] LABS: ABG Base Excess 9.6 mEq/L (-2.0 to 3.0); ABG HCO3 36.5 mEQ/L (21-27); ABG Oxygen Saturation 95 % (95-98); ABG TCO2 38.3 mEq/L (20-26); Blood Gas FiO2 50 %; Blood Gas PEEP 5 cm H2O; Blood Gas Respiration Rate 22; Blood Gas VT 450 cc
[2016-04-03] MEDS: *HR* Heparin 5,000 UNIT/ML VIAL SQ SCH ×2 (06:15→16:57)
[2016-04-03] MEDS: Budesonide/Formoterol 160/4.5 MDI IH SCH ×2 (07:24→22:33)
[2016-04-03] MEDS: Norepinephrine 4 MG in D5% in Water 250 ML IVC SCH (07:31)
[2016-04-03] MEDS: Aspirin 81 MG TAB.CHEW PO SCH (07:32)
[2016-04-03] MEDS: Pantoprazole 40 MG VIAL IVPB SCH (07:32)
[2016-04-03] MEDS: Chlorhexidine Rinse 15 ML MOUTHWASH MM SCH (07:32)
--- NOTE | 2016-04-03 08:33 | Pulmonology Progress Note ---
<Renato Erickson - Last Filed: 04/03/16 08:31> Date of Encounter: 04/03/16 Time of Encounter: 08:31 Assessment and Plan (1) Septic shock Current Visit: Yes Status: Acute Improved. White count improving. Patient is no longer requiring pressor therapy. We will continue antibiotics. Blood culture results are negative. (2) Acute hypercapnic respiratory failure Current Visit: Yes Status: Acute Related to sepsis and acute exacerbation of COPD. Hypercapnia has improved and is likely the patient's baseline. Plan is to attempt extubation to BiPAP today. (3) Acute exacerbation of chronic obstructive airways disease Current Visit: Yes Status: Acute Possibly related to underlying pneumonia. Lungs sounds improved. We will continue with bronchodilators every 2 hours, wean steroids. Continue antibiotic coverage with Levaquin. (4) Non-STEMI (non-ST elevated myocardial infarction) Current Visit: Yes Status: Acute Patient elevated troponin that is since leveled off and decreased. Cardiology saw the patient and feel this is related to demand ischemia. Heparin drip as been discontinued. Beta brenda has been restarted. (5) Chronic heart failure Current Visit: Yes Status: Acute Patient does not appear to be in acute fluid overload related to heart failure. Beta brenda has been restarted. Echo pending. Qualifiers: Heart failure type: unspecified heart failure type Qualified Code(s): I50.9 - Heart failure, unspecified (6) DVT prophylaxis Current Visit: No Status: Acute Heparin drip as been discontinued. We will initiate heparin 5000 units subcutaneous twice a day. Subjective Principal diagnosis: Respiratory failure Interval history: Patient seen and examined at bedside. Patient is awake, alert and comfortable. She is able to communicate via writing and has no complaints this time. She states she is not in any pain. Objective PUL Vital signs: Last Vital Signs Temp 97.9 F 04/03/16 07:37 Pulse 104 04/03/16 08:00 Resp 16 04/03/16 08:10 BP 137/86 04/03/16 08:00 Pulse Ox 94 L 04/03/16 08:00 General appearance: no acute distress ENT: oropharynx moist Effort: mildly labored Auscultation: bilateral: diminished breath sounds Cardiovascular: other (Regular rhythm, tachycardic. ) Gastrointestinal: hypoactive bowel sounds, soft, non-tender, non-distended Extremities: no cyanosis, no clubbing, edema (Trace ) normal mental status, non-focal exam Ventilator Settings Ventilator Settings: Ventilator Settings, Last 8 Hours Ventilator Mode A/C Ventilator Mode A/C Ventilator Mode A/C Ventilator Mode A/C Ventilator Mode A/C Ventilator Mode A/C Ventilator Mode A/C Ventilator Mode A/C Ventilator Mode A/C Ventilator Mode A/C Ventilator Mode A/C Ventilator Mode A/C Ventilator Tidal Volume 450 Setting Ventilator Tidal Volume 450 Setting Ventilator Tidal Volume 450 Setting Ventilator Tidal Volume 450 Setting Ventilator Tidal Volume 450 Setting Ventilator Tidal Volume 450 Setting Ventilator Tidal Volume 450 Setting Ventilator Tidal Volume 450 Setting Ventilator Tidal Volume 450 Setting Ventilator Tidal Volume 450 Setting Ventilator Tidal Volume 450 Setting Ventilator Tidal Volume 450 Setting Ventilator Tidal Volume 450 Setting Ventilator Respiratory Rate 16 Setting Ventilator Respiratory Rate 16 Setting Ventilator Respiratory Rate 22 Setting Ventilator Respiratory Rate 22 Setting Ventilator Respiratory Rate 22 Setting Ventilator Respiratory Rate 22 Setting Ventilator Respiratory Rate 22 Setting Ventilator Respiratory Rate 22 Setting Ventilator Respiratory Rate 22 Setting Ventilator Respiratory Rate 22 Setting Ventilator Respiratory Rate 22 Setting Ventilator Respiratory Rate 22 Setting Ventilator Respiratory Rate 22 Setting Actual Respiratory Rate 16 Actual Respiratory Rate 25 Actual Respiratory Rate 22 Actual Respiratory Rate 22 Actual Respiratory Rate 22 Actual Respiratory Rate 22 Actual Respiratory Rate 22 Actual Respiratory Rate 22 Actual Respiratory Rate 22 Actual Respiratory Rate 22 Actual Respiratory Rate 22 Actual Respiratory Rate 22 Positive End Expiratory 5 Pressure Positive End Expiratory 5 Pressure Positive End Expiratory 5 Pressure Positive End Expiratory 5 Pressure Positive End Expiratory 5 Pressure Positive End Expiratory 5 Pressure Positive End Expiratory 5 Pressure Positive End Expiratory 5 Pressure Positive End Expiratory 5 Pressure Positive End Expiratory 5 Pressure Positive End Expiratory 5 Pressure Positive End Expiratory 5 Pressure Positive End Expiratory 5 Pressure Peak Inspiratory Airway 34 Pressure Peak Inspiratory Airway 27 Pressure Peak Inspiratory Airway 36 Pressure Peak Inspiratory Airway 34 Pressure Peak Inspiratory Airway 32 Pressure Peak Inspiratory Airway 31 Pressure Peak Inspiratory Airway 32 Pressure Peak Inspiratory Airway 30 Pressure Peak Inspiratory Airway 32 Pressure Peak Inspiratory Airway 33 Pressure Peak Inspiratory Airway 34 Pressure Peak Inspiratory Airway 31 Pressure Results - Laboratory Findings CBC and BMP: 04/03/16 03:57 04/03/16 03:57 ABG ABG pH 7.40 pH Units (7.32-7.45) 04/03/16 05:16 ABG pCO2 59 mmHg (35-45) H 04/03/16 05:16 ABG pO2 74 mmHg (85-104) L 04/03/16 05:16 ABG O2 Saturation 95 % (95-98) 04/03/16 05:16 PT/INR, D-dimer PT 12.0 Seconds (9.4-12.1) 03/31/16 03:38 D-Dimer 1079 ng/mLFEU (0-500) H 03/30/16 21:52 Abnormal lab findings: Abnormal lab results WBC 14.0 K/mcL (4.3-11.1) H 04/03/16 03:57 MPV 9.3 fL (9.4-12.4) L 04/03/16 03:57 Neutrophils # 11.8 K/mcL (1.6-8.9) H 04/03/16 03:57 APTT 79.9 Seconds (26.0-36.0) H 03/31/16 22:35 D-Dimer 1079 ng/mLFEU (0-500) H 03/30/16 21:52 ABG pCO2 59 mmHg (35-45) H 04/03/16 05:16 ABG pO2 74 mmHg (85-104) L 04/03/16 05:16 ABG HCO3 36.5 mEQ/L (21-27) H 04/03/16 05:16 ABG Total CO2 38.3 mEq/L (20-26) H 04/03/16 05:16 ABG Base Excess 9.6 mEq/L (-2.0 to 3.0) H 04/03/16 05:16 Sodium 135 mEq/L (136-145) L 04/03/16 03:57 Chloride 96 mEq/L (98-109) L 04/03/16 03:57 Carbon Dioxide 31 mEq/L (19-29) H 04/03/16 03:57 BUN 35 mg/dL (7-20) H 04/03/16 03:57 Est GFR (Non-Af Amer) 59 (> 60) L 04/03/16 03:57 BUN/Creatinine Ratio 36 (6-26) H 04/03/16 03:57 Glucose 146 mg/dL (70-99) H 04/03/16 03:57 POC Glucose 146 (58-89) H 04/03/16 05:41 Troponin I 2.62 ng/mL (0-0.03) H* 03/31/16 08:06 Albumin 2.8 g/dL (3.5-5.0) L 04/03/16 03:57 Albumin/Globulin Ratio 0.8 (1.1-2.2) L 04/03/16 03:57 Vancomycin Trough 21.2 mcg/mL (10-20) H* 04/02/16 00:30 Coronavirus OC43 (PCR) DETECTED (Not Detect) A 03/31/16 15:15 - Microbiology Findings Microbiology Findings: Microbiology, Last 48 Hours 03/31/16 06:29 Sputum Culture - Final Sputum - Clinical Findings Intake & Output: Intake & Output 04/02/16 04/03/16 04/03/16 23:59 07:59 15:59 Intake Total 418 / 418 192 / 192 Output Total 150 / 150 425 / 425 Balance 268 / 268 -233 / -233 Weight 103.918 kg Consult Discharge Plan - Plan Referrals: NO,PCP [Primary Care Provider] - <Shannen Rosario - Last Filed: 04/03/16 16:11> Objective PUL Vital signs: Last Vital Signs Temp 98.1 F 04/03/16 11:06 Pulse 135 04/03/16 15:00 Resp 20 04/03/16 15:43 BP 127/79 04/03/16 15:00 Pulse Ox 93 L 04/03/16 15:43 Results - Laboratory Findings CBC and BMP: 04/03/16 03:57 04/03/16 03:57 ABG ABG pH 7.40 pH Units (7.32-7.45) 04/03/16 05:16 ABG pCO2 59 mmHg (35-45) H 04/03/16 05:16 ABG pO2 74 mmHg (85-104) L 04/03/16 05:16 ABG O2 Saturation 95 % (95-98) 04/03/16 05:16 PT/INR, D-dimer PT 12.0 Seconds (9.4-12.1) 03/31/16 03:38 D-Dimer 1079 ng/mLFEU (0-500) H 03/30/16 21:52 Abnormal lab findings: Abnormal lab results WBC 14.0 K/mcL (4.3-11.1) H 04/03/16 03:57 MPV 9.3 fL (9.4-12.4) L 04/03/16 03:57 Neutrophils # 11.8 K/mcL (1.6-8.9) H 04/03/16 03:57 APTT 79.9 Seconds (26.0-36.0) H 03/31/16 22:35 D-Dimer 1079 ng/mLFEU (0-500) H 03/30/16 21:52 ABG pCO2 59 mmHg (35-45) H 04/03/16 05:16 ABG pO2 74 mmHg (85-104) L 04/03/16 05:16 ABG HCO3 36.5 mEQ/L (21-27) H 04/03/16 05:16 ABG Total CO2 38.3 mEq/L (20-26) H 04/03/16 05:16 ABG Base Excess 9.6 mEq/L (-2.0 to 3.0) H 04/03/16 05:16 Sodium 135 mEq/L (136-145) L 04/03/16 03:57 Chloride 96 mEq/L (98-109) L 04/03/16 03:57 Carbon Dioxide 31 mEq/L (19-29) H 04/03/16 03:57 BUN 35 mg/dL (7-20) H 04/03/16 03:57 Est GFR (Non-Af Amer) 59 (> 60) L 04/03/16 03:57 BUN/Creatinine Ratio 36 (6-26) H 04/03/16 03:57 Glucose 146 mg/dL (70-99) H 04/03/16 03:57 POC Glucose 129 (58-89) H 04/03/16 10:48 Troponin I 2.62 ng/mL (0-0.03) H* 03/31/16 08:06 Albumin 2.8 g/dL (3.5-5.0) L 04/03/16 03:57 Albumin/Globulin Ratio 0.8 (1.1-2.2) L 04/03/16 03:57 Vancomycin Trough 21.2 mcg/mL (10-20) H* 04/02/16 00:30 Coronavirus OC43 (PCR) DETECTED (Not Detect) A 03/31/16 15:15 - Microbiology Findings Microbiology Findings: Microbiology, Last 48 Hours 03/31/16 06:29 Sputum Culture - Final Sputum - Clinical Findings Intake & Output: Intake & Output 04/03/16 04/03/16 04/03/16 07:59 15:59 23:59 Intake Total 192 / 192 409 / 409 Output Total 425 / 425 200 / 200 Balance -233 / -233 209 / 209 Weight 103.918 kg - Attending Attestation I examined this patient and my medical decision-making was reviewed with the SERVICE DELIVERY MANAGER/PA/Advanced Practice Nurse/Resident Physician. I agree with the documented findings, disposition and treatment plan as described except to the extent set forth below. Patient seen and examined. Labs, radiology, chart personally reviewed. Agree with resident's history and physical, assessment, plan with following comments: SERVICE NOW DEVELOPER: Patient follows commands, Pulmonary: Acceptable oxygenation and ventilation on the vent, then changed vent setting before SBT, then patient was extubated to BiPAP, then transition to nasal canula to keep SPO around 90% Cardiovascular: stable, sinus tachycardia could be multifactorial and resuming beta brenda hopefully to help. There is no evidence of pulm embolism on CTA GI: Nutrition per dietary and GI prophylaxis per routine Heme: DVT prophylaxis per routine ID: Continue antibiotics and plan to de-escalation Renal; urine out put and renal funtion reviewed Endorcine: blood glucose is monitored Lines: all lines checked and no evidence of infections Skin: skin care to prevent pressure ulcers per nursing routine care I spent 32 min of Critical Care time with this patient. It involved decision making of high complexity to assess, manipulate, and support vital organ system failure and/or to prevent further life threatening deterioration of the patient' s condition. The time involved in the performance of separately reportable procedures was not counted toward critical care time.
[2016-04-03] MEDS ORDERED: Nicotine 21 MG PATCH.TD24 TD SCH (09:15)
[2016-04-03] MEDS ORDERED: *HR* Metoprolol 5 MG/5 ML VIAL IVP ONE (11:22)
[2016-04-03] MEDS ORDERED: ALPRAZolam 0.25 MG TABLET PO PRN (11:25)
[2016-04-03] MEDS: ALPRAZolam 0.5 MG TABLET PO PRN (11:56)
[2016-04-03] MEDS: Acetaminophen 325 MG TABLET PO PRN ×2 (13:45→19:36)
[2016-04-03] MEDS: Levalbuterol Neb 1.25 MG/3 ML IH SCH ×2 (15:40→22:33)
--- NOTE | 2016-04-03 19:03 | Electrocardiograph Report ---
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
[2016-04-03] MEDS ORDERED: levoFLOXacin 500 MG TABLET PO SCH (22:00)
[2016-04-04] MEDS: ALPRAZolam 0.5 MG TABLET PO PRN (00:01)
[2016-04-04] MEDS: Levalbuterol Neb 1.25 MG/3 ML IH SCH ×4 (04:28→22:29)
[2016-04-04 04:32] LABS: Basophils # 0.1 K/mcL (0.0-0.2); Basophils % 0.5 %; Eosinophils % 0.1 %; Hematocrit 40.2 % (35.3-44.9); Hemoglobin 13.2 g/dL (11.5-15.4); Lymphocytes % 10.9 %; Mean Corpuscular HGB Conc 32.8 g/dL (31.6-35.5); Mean Corpuscular Hemoglobin 32.2 pg (28.0-33.3); Mean Platelet Volume 8.6 fL (9.4-12.4); Monocytes # 1.4 K/mcL (0.0-1.3); Monocytes % 7.9 %; Neutrophils # 13.7 K/mcL (1.6-8.9); Platelet Count 318 K/mcL (140-400); Segmented Neutrophils % 75.6 %
[2016-04-04 04:48] LABS: Alanine Aminotransferase 23 Units/L (0-55); Albumin 2.7 g/dL (3.5-5.0); Albumin/Globulin Ratio 0.8 (1.1-2.2); Alkaline Phosphatase 78 Units/L (38-126); Aspartate Amino Transferase 20 Units/L (5-34); BUN/Creatinine Ratio 38 (6-26); Bilirubin,Total 0.3 mg/dL (0.2-1.2); Blood Urea Nitrogen 33 mg/dL (7-20); Calcium 9.2 mg/dL (8.6-10.8); Carbon Dioxide 32 mEq/L (19-29); Chloride 97 mEq/L (98-109); Globulin 3.4 g/dL (2.4-3.5); Glucose 85 mg/dL (70-99); Magnesium 1.9 mg/dL (1.6-2.6); Osmolality,Calculated 291 (280-300); Phosphorous 3.8 mg/dL (2.3-4.7); Potassium 4.5 mEq/L (3.5-4.5); Sodium 137 mEq/L (136-145); Total Protein 6.1 g/dL (6.0-8.3); eGFR For African Americans > 60 (> 60); eGFR For Non-African Americans > 60 (> 60)
[2016-04-04 05:43] LABS: Ionized Calcium 1.12 mmol/L (1.15-1.35)
[2016-04-04] MEDS: *HR* Heparin 5,000 UNIT/ML VIAL SQ SCH ×2 (06:12→18:00)
[2016-04-04] MEDS: Magnesium Sulfate 2 GM in D5% in Water 100 ML IVPB PRN (06:12)
--- NOTE | 2016-04-04 08:09 | Pulmonology Progress Note ---
<Renato Erickson - Last Filed: 04/04/16 08:05> Date of Encounter: 04/04/16 Time of Encounter: 08:05 Assessment and Plan (1) Septic shock Current Visit: Yes Status: Acute Improved. White count stable. Patient is no longer requiring pressor therapy. We will continue antibiotics for 7 days. Blood and sputum culture results are negative. (2) Acute hypercapnic respiratory failure Current Visit: Yes Status: Acute Related to sepsis and acute exacerbation of COPD. Hypercapnia has improved and is likely the patient's baseline. Extubated yesterday, has been doing well since. No respiratory distress. (3) Acute exacerbation of chronic obstructive airways disease Current Visit: Yes Status: Acute Possibly related to underlying pneumonia. Lungs sounds improved. We will continue with bronchodilators every 4 hours, wean steroids. Continue antibiotic coverage with Levaquin for 7 days as discussed above. (4) Non-STEMI (non-ST elevated myocardial infarction) Current Visit: Yes Status: Acute Patient elevated troponin that is since leveled off and decreased. Cardiology saw the patient and feel this is related to demand ischemia. Heparin drip as been discontinued. Beta brenda has been restarted. (5) Chronic heart failure Current Visit: Yes Status: Acute EF preserved. Patient does not appear to be in acute fluid overload related to heart failure. Beta brenda has been restarted. Qualifiers: Heart failure type: unspecified heart failure type Qualified Code(s): I50.9 - Heart failure, unspecified (6) Tachycardia Current Visit: Yes Status: Acute After extubation initially the patient had a persistently elevated heart rate in the 120s. EKG showed sinus tachycardia. Patient was otherwise stable, asymptomatic, blood pressure was good. Beta brenda was reinitiated however heart rate was maintained. Diltiazem was then initiated and her heart rate is much better today. We will continue these, continue to monitor heart rate and blood pressure. (7) DVT prophylaxis Current Visit: No Status: Acute heparin 5000 units subcutaneous twice a day. Subjective Principal diagnosis: Respiratory failure Interval history: Patient seen and examined at bedside. Patient is awake, alert and comfortable. She states she is feeling better this time. She has no complaints. She feels her breathing is close to baseline. She denies fever, chills, chest pain. She does report a mild productive cough that is improving. Objective PUL Vital signs: Last Vital Signs Temp 98.2 F 04/04/16 04:00 Pulse 101 04/04/16 07:25 Resp 18 04/04/16 07:00 BP 138/71 04/04/16 07:00 Pulse Ox 95 04/04/16 07:00 General appearance: no acute distress ENT: oropharynx moist Auscultation: bilateral: diminished breath sounds Cardiovascular: regular rate and rhythm Gastrointestinal: hypoactive bowel sounds, soft, non-tender, non-distended Extremities: no cyanosis, no edema, no clubbing normal mental status, non-focal exam Results - Laboratory Findings CBC and BMP: 04/04/16 04:24 04/04/16 04:24 ABG ABG pH 7.40 pH Units (7.32-7.45) 04/03/16 05:16 ABG pCO2 59 mmHg (35-45) H 04/03/16 05:16 ABG pO2 74 mmHg (85-104) L 04/03/16 05:16 ABG O2 Saturation 95 % (95-98) 04/03/16 05:16 PT/INR, D-dimer PT 12.0 Seconds (9.4-12.1) 03/31/16 03:38 D-Dimer 1079 ng/mLFEU (0-500) H 03/30/16 21:52 Abnormal lab findings: Abnormal lab results WBC 18.1 K/mcL (4.3-11.1) H 04/04/16 04:24 MPV 8.6 fL (9.4-12.4) L 04/04/16 04:24 Immature Gran % 5.0 % (0-4) H 04/04/16 04:24 Neutrophils # 13.7 K/mcL (1.6-8.9) H 04/04/16 04:24 Monocytes # 1.4 K/mcL (0.0-1.3) H 04/04/16 04:24 APTT 79.9 Seconds (26.0-36.0) H 03/31/16 22:35 D-Dimer 1079 ng/mLFEU (0-500) H 03/30/16 21:52 ABG pCO2 59 mmHg (35-45) H 04/03/16 05:16 ABG pO2 74 mmHg (85-104) L 04/03/16 05:16 ABG HCO3 36.5 mEQ/L (21-27) H 04/03/16 05:16 ABG Total CO2 38.3 mEq/L (20-26) H 04/03/16 05:16 ABG Base Excess 9.6 mEq/L (-2.0 to 3.0) H 04/03/16 05:16 Chloride 97 mEq/L (98-109) L 04/04/16 04:24 Carbon Dioxide 32 mEq/L (19-29) H 04/04/16 04:24 BUN 33 mg/dL (7-20) H 04/04/16 04:24 BUN/Creatinine Ratio 38 (6-26) H 04/04/16 04:24 POC Glucose 129 (58-89) H 04/03/16 10:48 Ionized Calcium 1.12 mmol/L (1.15-1.35) L 04/04/16 04:24 Troponin I 2.62 ng/mL (0-0.03) H* 03/31/16 08:06 Albumin 2.7 g/dL (3.5-5.0) L 04/04/16 04:24 Albumin/Globulin Ratio 0.8 (1.1-2.2) L 04/04/16 04:24 Vancomycin Trough 21.2 mcg/mL (10-20) H* 04/02/16 00:30 Coronavirus OC43 (PCR) DETECTED (Not Detect) A 03/31/16 15:15 - Microbiology Findings Microbiology Findings: Microbiology, Last 48 Hours 03/31/16 06:29 Sputum Culture - Final Sputum - Clinical Findings Intake & Output: Intake & Output 04/03/16 04/04/16 04/04/16 23:59 07:59 15:59 Intake Total 240 / 240 240 / 240 Output Total 400 / 400 300 / 300 Balance -160 / -160 -60 / -60 Weight 104.598 kg Consult Discharge Plan - Plan Referrals: NO,PCP [Primary Care Provider] - <Shannen Rosario - Last Filed: 04/04/16 12:57> Objective PUL Vital signs: Last Vital Signs Temp 98.1 F 04/04/16 11:35 Pulse 85 04/04/16 12:00 Resp 22 04/04/16 12:00 BP 110/64 04/04/16 12:00 Pulse Ox 96 04/04/16 12:00 Results - Laboratory Findings CBC and BMP: 04/04/16 04:24 04/04/16 04:24 ABG ABG pH 7.40 pH Units (7.32-7.45) 04/03/16 05:16 ABG pCO2 59 mmHg (35-45) H 04/03/16 05:16 ABG pO2 74 mmHg (85-104) L 04/03/16 05:16 ABG O2 Saturation 95 % (95-98) 04/03/16 05:16 PT/INR, D-dimer PT 12.0 Seconds (9.4-12.1) 03/31/16 03:38 D-Dimer 1079 ng/mLFEU (0-500) H 03/30/16 21:52 Abnormal lab findings: Abnormal lab results WBC 18.1 K/mcL (4.3-11.1) H 04/04/16 04:24 MPV 8.6 fL (9.4-12.4) L 04/04/16 04:24 Immature Gran % 5.0 % (0-4) H 04/04/16 04:24 Neutrophils # 13.7 K/mcL (1.6-8.9) H 04/04/16 04:24 Monocytes # 1.4 K/mcL (0.0-1.3) H 04/04/16 04:24 APTT 79.9 Seconds (26.0-36.0) H 03/31/16 22:35 D-Dimer 1079 ng/mLFEU (0-500) H 03/30/16 21:52 ABG pCO2 59 mmHg (35-45) H 04/03/16 05:16 ABG pO2 74 mmHg (85-104) L 04/03/16 05:16 ABG HCO3 36.5 mEQ/L (21-27) H 04/03/16 05:16 ABG Total CO2 38.3 mEq/L (20-26) H 04/03/16 05:16 ABG Base Excess 9.6 mEq/L (-2.0 to 3.0) H 04/03/16 05:16 Chloride 97 mEq/L (98-109) L 04/04/16 04:24 Carbon Dioxide 32 mEq/L (19-29) H 04/04/16 04:24 BUN 33 mg/dL (7-20) H 04/04/16 04:24 BUN/Creatinine Ratio 38 (6-26) H 04/04/16 04:24 POC Glucose 129 (58-89) H 04/03/16 10:48 Ionized Calcium 1.12 mmol/L (1.15-1.35) L 04/04/16 04:24 Troponin I 2.62 ng/mL (0-0.03) H* 03/31/16 08:06 Albumin 2.7 g/dL (3.5-5.0) L 04/04/16 04:24 Albumin/Globulin Ratio 0.8 (1.1-2.2) L 04/04/16 04:24 Vancomycin Trough 21.2 mcg/mL (10-20) H* 04/02/16 00:30 Coronavirus OC43 (PCR) DETECTED (Not Detect) A 03/31/16 15:15 - Clinical Findings Intake & Output: Intake & Output 04/03/16 04/04/16 04/04/16 23:59 07:59 15:59 Intake Total 240 / 240 240 / 240 Output Total 400 / 400 300 / 300 500 / 500 Balance -160 / -160 -60 / -60 -500 / -500 Weight 104.598 kg - Attending Attestation I examined this patient and my medical decision-making was reviewed with the STOCKROOM ASSOCIATE/PA/Advanced Practice Nurse/Resident Physician. I agree with the documented findings, disposition and treatment plan as described except to the extent set forth below. Patient seen and examined and reviewed labs with the resident. Patient is feeling better and still awaiting transfer patient to the floor. Continue current treatment and patient will need outpatient follow up. BiPAP PRN and on-off during daytime.
[2016-04-04] MEDS ORDERED: ALPRAZolam 0.5 MG TABLET PO PRN (08:20)
[2016-04-04] MEDS ORDERED: Acetaminophen 325 MG TABLET PO PRN (08:20)
[2016-04-04] MEDS ORDERED: Naloxone 0.4 MG/ML INJ IVP PRN (08:20)
[2016-04-04] MEDS ORDERED: predniSONE 20 MG TABLET PO SCH ×2 (09:00)
[2016-04-04] MEDS: Aspirin 81 MG TAB.CHEW PO SCH (09:32)
[2016-04-04] MEDS: Nicotine 21 MG PATCH.TD24 TD SCH (09:33)
[2016-04-04] MEDS: THEOPHYLLINE ANHYDROUS 100 MG PO SCH ×2 (09:37→20:10)
[2016-04-04] MEDS: Budesonide/Formoterol 160/4.5 MDI IH SCH ×2 (10:28→22:29)
[2016-04-04] MEDS ORDERED: Furosemide 40 MG/4 ML VIAL IVP ONE (13:59)
[2016-04-04] MEDS ORDERED: levoFLOXacin 500 MG TABLET PO SCH (22:00)
[2016-04-05] MEDS: Levalbuterol Neb 1.25 MG/3 ML IH SCH ×4 (03:36→21:48)
[2016-04-05 04:13] LABS: Basophils % 0.1 %; Eosinophils % 0.1 %; Hematocrit 39.8 % (35.3-44.9); Hemoglobin 13.1 g/dL (11.5-15.4); Immature Granulocytes % 6.3 % (0-4); Lymphocytes % 13.7 %; Mean Corpuscular HGB Conc 32.9 g/dL (31.6-35.5); Mean Corpuscular Hemoglobin 32.3 pg (28.0-33.3); Mean Platelet Volume 8.7 fL (9.4-12.4); Monocytes % 8.4 %; Platelet Count 288 K/mcL (140-400); Red Blood Count 4.06 M/mcL (3.82-4.97); Red Cell Distribution Width 13.6 % (11.5-14.5); Segmented Neutrophils % 71.4 %
[2016-04-05 04:14] LABS: Lymphocytes # 2.2 K/mcL (0.6-4.6); Monocytes # 1.4 K/mcL (0.0-1.3); Neutrophils # 11.5 K/mcL (1.6-8.9)
[2016-04-05 04:26] LABS: Alanine Aminotransferase 20 Units/L (0-55); Albumin 2.5 g/dL (3.5-5.0); Albumin/Globulin Ratio 0.8 (1.1-2.2); Alkaline Phosphatase 79 Units/L (38-126); Aspartate Amino Transferase 20 Units/L (5-34); BUN/Creatinine Ratio 33 (6-26); Bilirubin,Total 0.4 mg/dL (0.2-1.2); Blood Urea Nitrogen 26 mg/dL (7-20); Calcium 8.6 mg/dL (8.6-10.8); Carbon Dioxide 33 mEq/L (19-29); Chloride 96 mEq/L (98-109); Globulin 3.2 g/dL (2.4-3.5); Glucose 97 mg/dL (70-99); Osmolality,Calculated 287 (280-300); Potassium 4.5 mEq/L (3.5-4.5); Sodium 136 mEq/L (136-145); Total Protein 5.7 g/dL (6.0-8.3); eGFR For African Americans > 60 (> 60); eGFR For Non-African Americans > 60 (> 60)
[2016-04-05 05:27] LABS: Platelet Estimate Normal (Normal); Reactive Lymphocytes Present (Not Present)
[2016-04-05] MEDS: *HR* Heparin 5,000 UNIT/ML VIAL SQ SCH ×2 (06:22→17:06)
--- NOTE | 2016-04-05 06:52 | Pulmonology Progress Note ---
<Renato Erickson - Last Filed: 04/05/16 06:50> Date of Encounter: 04/05/16 Time of Encounter: 06:50 Assessment and Plan (1) Septic shock Current Visit: Yes Status: Acute Improved. White count stable. Patient is no longer requiring pressor therapy. Antibiotics have been discontinued. Blood and sputum culture results are negative. (2) Acute hypercapnic respiratory failure Current Visit: Yes Status: Acute Related to sepsis and acute exacerbation of COPD. Hypercapnia has improved and is likely the patient's baseline. Extubated 2 days ago, has been doing well since. No respiratory distress. Using BiPAP as tolerated. (3) Acute exacerbation of chronic obstructive airways disease Current Visit: Yes Status: Acute Possibly related to underlying pneumonia. Lungs sounds improved. We will continue with bronchodilators every 4 hours, continue to wean steroids. Antibiotics have been stopped (4) Non-STEMI (non-ST elevated myocardial infarction) Current Visit: Yes Status: Acute Patient elevated troponin that is since leveled off and decreased. Cardiology saw the patient and feel this is related to demand ischemia. Heparin drip as been discontinued. Beta brenda has been restarted. Blood pressure and heart rate under good control. (5) Chronic heart failure Current Visit: Yes Status: Acute EF preserved. Patient does not appear to be in acute fluid overload related to heart failure. Beta brenda has been restarted. As needed diuretic. Qualifiers: Heart failure type: unspecified heart failure type Qualified Code(s): I50.9 - Heart failure, unspecified (6) Tachycardia Current Visit: Yes Status: Acute After extubation initially the patient had a persistently elevated heart rate in the 120s. EKG showed sinus tachycardia. Patient was otherwise stable, asymptomatic, blood pressure was good. Beta brenda was reinitiated however heart rate was maintained. Diltiazem was then initiated and her heart rate is much better today. Cardizem was then stopped and her heart rate remains under good control. Continue current regimen (7) DVT prophylaxis Current Visit: No Status: Acute heparin 5000 units subcutaneous twice a day. Subjective Principal diagnosis: Respiratory failure Interval history: Patient seen and examined at bedside. Patient is awake, alert and comfortable. She states she is feeling better this time. She has no complaints. She feels her breathing is close to baseline. She denies fever, chills, chest pain. She is attempting to get out of bed and move around a little more to get her strength back. Objective PUL Vital signs: Last Vital Signs Temp 98.9 F 04/04/16 23:00 Pulse 93 04/05/16 05:00 Resp 20 04/05/16 05:00 BP 130/70 04/05/16 05:00 Pulse Ox 95 04/05/16 05:00 General appearance: no acute distress ENT: oropharynx moist Effort: normal Auscultation: bilateral: diminished breath sounds Cardiovascular: regular rate and rhythm Gastrointestinal: normoactive bowel sounds, soft, non-tender, non-distended Extremities: no cyanosis, no clubbing, edema (Trace) normal mental status, non-focal exam Results - Laboratory Findings CBC and BMP: 04/05/16 03:45 04/05/16 03:45 ABG ABG pH 7.40 pH Units (7.32-7.45) 04/03/16 05:16 ABG pCO2 59 mmHg (35-45) H 04/03/16 05:16 ABG pO2 74 mmHg (85-104) L 04/03/16 05:16 ABG O2 Saturation 95 % (95-98) 04/03/16 05:16 PT/INR, D-dimer PT 12.0 Seconds (9.4-12.1) 03/31/16 03:38 D-Dimer 1079 ng/mLFEU (0-500) H 03/30/16 21:52 Abnormal lab findings: Abnormal lab results WBC 16.1 K/mcL (4.3-11.1) H 04/05/16 03:45 MPV 8.7 fL (9.4-12.4) L 04/05/16 03:45 Immature Gran % 6.3 % (0-4) H 04/05/16 03:45 Neutrophils # 11.5 K/mcL (1.6-8.9) H 04/05/16 03:45 Monocytes # 1.4 K/mcL (0.0-1.3) H 04/05/16 03:45 Reactive Lymphocytes Present (Not Present) A 04/05/16 03:45 APTT 79.9 Seconds (26.0-36.0) H 03/31/16 22:35 D-Dimer 1079 ng/mLFEU (0-500) H 03/30/16 21:52 ABG pCO2 59 mmHg (35-45) H 04/03/16 05:16 ABG pO2 74 mmHg (85-104) L 04/03/16 05:16 ABG HCO3 36.5 mEQ/L (21-27) H 04/03/16 05:16 ABG Total CO2 38.3 mEq/L (20-26) H 04/03/16 05:16 ABG Base Excess 9.6 mEq/L (-2.0 to 3.0) H 04/03/16 05:16 Chloride 96 mEq/L (98-109) L 04/05/16 03:45 Carbon Dioxide 33 mEq/L (19-29) H 04/05/16 03:45 BUN 26 mg/dL (7-20) H 04/05/16 03:45 BUN/Creatinine Ratio 33 (6-26) H 04/05/16 03:45 POC Glucose 129 (58-89) H 04/03/16 10:48 Ionized Calcium 1.12 mmol/L (1.15-1.35) L 04/04/16 04:24 Troponin I 2.62 ng/mL (0-0.03) H* 03/31/16 08:06 Serum Total Protein 5.7 g/dL (6.0-8.3) L 04/05/16 03:45 Albumin 2.5 g/dL (3.5-5.0) L 04/05/16 03:45 Albumin/Globulin Ratio 0.8 (1.1-2.2) L 04/05/16 03:45 Vancomycin Trough 21.2 mcg/mL (10-20) H* 04/02/16 00:30 Coronavirus OC43 (PCR) DETECTED (Not Detect) A 03/31/16 15:15 - Clinical Findings Intake & Output: Intake & Output 04/04/16 04/04/16 04/05/16 15:59 23:59 07:59 Intake Total 400 / 400 Output Total 1250 / 1250 1100 / 1100 800 / 800 Balance -1250 / -1250 -700 / -700 -800 / -800 Weight 104.4 kg Consult Discharge Plan - Plan Referrals: NO,PCP [Non-Partnered Physician] - <Shannen Rosario - Last Filed: 04/05/16 12:31> Objective PUL Vital signs: Last Vital Signs Temp 98.2 F 04/05/16 07:35 Pulse 98 04/05/16 11:03 Resp 18 04/05/16 11:20 BP 119/68 04/05/16 11:00 Pulse Ox 90 L 04/05/16 11:20 Results - Laboratory Findings CBC and BMP: 04/05/16 03:45 04/05/16 03:45 ABG ABG pH 7.40 pH Units (7.32-7.45) 04/03/16 05:16 ABG pCO2 59 mmHg (35-45) H 04/03/16 05:16 ABG pO2 74 mmHg (85-104) L 04/03/16 05:16 ABG O2 Saturation 95 % (95-98) 04/03/16 05:16 PT/INR, D-dimer PT 12.0 Seconds (9.4-12.1) 03/31/16 03:38 D-Dimer 1079 ng/mLFEU (0-500) H 03/30/16 21:52 Abnormal lab findings: Abnormal lab results WBC 16.1 K/mcL (4.3-11.1) H 04/05/16 03:45 MPV 8.7 fL (9.4-12.4) L 04/05/16 03:45 Immature Gran % 6.3 % (0-4) H 04/05/16 03:45 Neutrophils # 11.5 K/mcL (1.6-8.9) H 04/05/16 03:45 Monocytes # 1.4 K/mcL (0.0-1.3) H 04/05/16 03:45 Reactive Lymphocytes Present (Not Present) A 04/05/16 03:45 APTT 79.9 Seconds (26.0-36.0) H 03/31/16 22:35 D-Dimer 1079 ng/mLFEU (0-500) H 03/30/16 21:52 ABG pCO2 59 mmHg (35-45) H 04/03/16 05:16 ABG pO2 74 mmHg (85-104) L 04/03/16 05:16 ABG HCO3 36.5 mEQ/L (21-27) H 04/03/16 05:16 ABG Total CO2 38.3 mEq/L (20-26) H 04/03/16 05:16 ABG Base Excess 9.6 mEq/L (-2.0 to 3.0) H 04/03/16 05:16 Chloride 96 mEq/L (98-109) L 04/05/16 03:45 Carbon Dioxide 33 mEq/L (19-29) H 04/05/16 03:45 BUN 26 mg/dL (7-20) H 04/05/16 03:45 BUN/Creatinine Ratio 33 (6-26) H 04/05/16 03:45 POC Glucose 129 (58-89) H 04/03/16 10:48 Ionized Calcium 1.12 mmol/L (1.15-1.35) L 04/04/16 04:24 Troponin I 2.62 ng/mL (0-0.03) H* 03/31/16 08:06 Serum Total Protein 5.7 g/dL (6.0-8.3) L 04/05/16 03:45 Albumin 2.5 g/dL (3.5-5.0) L 04/05/16 03:45 Albumin/Globulin Ratio 0.8 (1.1-2.2) L 04/05/16 03:45 Vancomycin Trough 21.2 mcg/mL (10-20) H* 04/02/16 00:30 Coronavirus OC43 (PCR) DETECTED (Not Detect) A 03/31/16 15:15 - Clinical Findings Intake & Output: Intake & Output 04/04/16 04/05/16 04/05/16 23:59 07:59 15:59 Intake Total 400 / 400 720 / 720 Output Total 1100 / 1100 1250 / 1250 Balance -700 / -700 -1250 / -1250 720 / 720 Weight 104.4 kg - Attending Attestation I examined this patient and my medical decision-making was reviewed with the BOTTOM CAGER/PA/Advanced Practice Nurse/Resident Physician. I agree with the documented findings, disposition and treatment plan as described except to the extent set forth below. Patient seen and examined. Labs, radiology, chart personally reviewed. 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 She still have some weakness and wheezing. Patient feel more comfortable to go home in next 1-2 days , which I feel it is reasonable. Cardiovascular: stable GI: Nutrition per dietary and GI prophylaxis per routine Heme: DVT prophylaxis per routine ID: Continue antibiotics and plan to de-escalation Renal; urine out put and renal funtion reviewed Endorcine: blood glucose is monitored Lines: all lines checked and no evidence of infections Skin: skin care to prevent pressure ulcers per nursing routine care
[2016-04-05] MEDS: Metoprolol XL (24 HR) Succ 50 MG TAB.ER.24H PO SCH (08:15)
[2016-04-05] MEDS: predniSONE 20 MG TABLET PO SCH (08:15)
[2016-04-05] MEDS: Aspirin 81 MG TAB.CHEW PO SCH (08:16)
[2016-04-05] MEDS: Nicotine 21 MG PATCH.TD24 TD SCH (08:16)
[2016-04-05] MEDS: THEOPHYLLINE ANHYDROUS 100 MG PO SCH ×2 (08:51→19:52)
--- NOTE | 2016-04-05 10:04 | Electrocardiograph Report ---
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
[2016-04-05] MEDS: Budesonide/Formoterol 160/4.5 MDI IH SCH ×2 (11:20→21:49)
[2016-04-05] MEDS: Tiotropium 18 MCG inhalation IH SCH (20:59)
[2016-04-06] MEDS: Levalbuterol Neb 1.25 MG/3 ML IH SCH ×2 (04:12→09:48)
[2016-04-06 04:31] LABS: Basophils # 0.1 K/mcL (0.0-0.2); Basophils % 0.6 %; Eosinophils # 0.1 K/mcL (0.0-0.6); Eosinophils % 0.4 %; Hematocrit 39.8 % (35.3-44.9); Hemoglobin 13.1 g/dL (11.5-15.4); Lymphocytes # 3.5 K/mcL (0.6-4.6); Lymphocytes % 22.7 %; Mean Corpuscular HGB Conc 32.9 g/dL (31.6-35.5); Mean Corpuscular Hemoglobin 31.9 pg (28.0-33.3); Mean Corpuscular Volume 96.8 fL (83.0-100.0); Mean Platelet Volume 8.8 fL (9.4-12.4); Monocytes # 1.2 K/mcL (0.0-1.3); Monocytes % 7.5 %; Neutrophils # 9.8 K/mcL (1.6-8.9); Platelet Count 293 K/mcL (140-400); Red Blood Count 4.11 M/mcL (3.82-4.97); Red Cell Distribution Width 13.5 % (11.5-14.5); Segmented Neutrophils % 62.8 %
[2016-04-06 04:49] LABS: BUN/Creatinine Ratio 23 (6-26); Blood Urea Nitrogen 18 mg/dL (7-20); Carbon Dioxide 35 mEq/L (19-29); Chloride 94 mEq/L (98-109); Glucose 78 mg/dL (70-99); Osmolality,Calculated 285 (280-300); Potassium 4.3 mEq/L (3.5-4.5); Sodium 137 mEq/L (136-145); eGFR For African Americans > 60 (> 60); eGFR For Non-African Americans > 60 (> 60)
[2016-04-06 04:53] LABS: Platelet Estimate Normal (Normal); Reactive Lymphocytes Present (Not Present)
[2016-04-06] MEDS: *HR* Heparin 5,000 UNIT/ML VIAL SQ SCH (05:56)
--- NOTE | 2016-04-06 07:55 | Discharge Summary ---
<Renato Erickson - Last Filed: 04/06/16 09:20> Date of Encounter: 04/06/16 Time of Encounter: 07:51 - Discharge Diagnosis (1) Septic shock Priority: Primary Status: Resolved (2) Acute hypercapnic respiratory failure Priority: Primary Status: Resolved (3) Acute exacerbation of chronic obstructive airways disease Priority: Primary Status: Acute (4) Non-STEMI (non-ST elevated myocardial infarction) Priority: Secondary Status: Acute (5) Chronic heart failure Priority: Secondary Status: Chronic Qualifiers: Heart failure type: unspecified heart failure type Qualified Code(s): I50.9 - Heart failure, unspecified (6) Tachycardia Priority: Secondary Status: Acute (7) DVT prophylaxis Priority: Secondary Status: Acute - Discharge Medications Prescriptions: PredniSONE See Taper PO DAILY #30 tablet Home Medications: Albuterol Sulfate [Albuterol Inhaler] 1 puff IH PRN PRN 08/09/15 [History] Alprazolam [Xanax 0.25 MG Tablet] 0.25 - 0.5 mg PO BID PRN 08/09/15 [History] Potassium Chloride [Klor-Con Sprinkle] 10 meq PO DAILY 08/09/15 [History] Tiotropium [Spiriva] 18 mcg IH DAILY 08/09/15 [History] Atorvastatin Calcium [Lipitor] 20 mg PO HS 08/12/15 [History] Ipratropium/Albuterol Neb [Duoneb] 3 ml IH Q6HR 08/12/15 [History] Losartan/Hydrochlorothiazide [Hyzaar 100-25 Tablet] 1 tab PO DAILY 08/12/15 [ History] Omeprazole [PriLOSEC] 20 mg PO DAILY 08/12/15 [History] Theophylline Anhydrous [Theophylline] 200 mg PO DAILY 08/12/15 [History] Cholecalciferol (D-3) [Vitamin D] 2,000 unit PO DAILY 03/30/16 [History] Fluticasone/Salmeterol [Advair 250-50 Diskus] 1 puff IH BID 03/30/16 [History] Metoprolol XL (24 HR) Succ [Toprol Xl] 100 mg PO DAILY 03/30/16 [History] Torsemide [Demadex] 10 - 20 mg PO DAILY PRN 03/30/16 [History] Alprazolam [Xanax 0.5 MG Tablet] 0.25 mg PO BID PRN #0 tablet 04/06/16 [Rx] Aspirin 81 mg PO DAILY tab.chew 04/06/16 [Rx] Budesonide/Formoterol 160/4.5 [Symbicort 160/4.5] 2 puff IH BIDR inhaler [Rx] PredniSONE See Taper PO DAILY #30 tablet 04/06/16 [Rx] Tiotropium [Spiriva] 18 mcg IH DAILYR inh 04/06/16 [Rx] Allergies/Adverse Reactions: Allergies No Known Allergies Allergy (Verified 08/09/15 16:58) Labs on day of discharge: Labs from last 24 hours 04/06/16 04/06/16 04/05/16 04:18 04:18 20:40 WBC 15.6 H RBC 4.11 Hgb 13.1 Hct 39.8 MCV 96.8 MCH 31.9 MCHC 32.9 RDW 13.5 Plt Count 293 MPV 8.8 L Immature Gran % 6.0 H Seg Neutrophils % 62.8 Lymphocytes % 22.7 Monocytes % 7.5 Eosinophils % 0.4 Basophils % 0.6 Neutrophils # 9.8 H Lymphocytes # 3.5 Monocytes # 1.2 Eosinophils # 0.1 Basophils # 0.1 Reactive Lymphocytes Present A Platelet Estimate Normal Sodium 137 Potassium 4.3 Chloride 94 L Carbon Dioxide 35 H BUN 18 Creatinine 0.77 Est GFR ( Amer) > 60 Est GFR (Non-Af Amer) > 60 BUN/Creatinine Ratio 23 Glucose 78 POC Glucose 110 H Calculated Osmolality 285 Calcium 9.0 - Impressions ITS Impressions Chest X-Ray 03/31/16 09:46 IMPRESSION: Right IJ central venous catheter tip projects over the course of the superior vena cava. No evidence of acute cardiopulmonary process. D/ / 03/31/2016 10:38:35 Marshall Irwin MD / bcarter Interpreting Provider: Marshall Irwin MD Chest X-Ray 04/01/16 06:00 IMPRESSION: Left basilar atelectasis D/ / Drew Gramajo MD / Drew Gramajo MD Interpreting Provider: Drew Gramajo MD Chest X-Ray 04/02/16 06:00 IMPRESSION: 1. The orogastric tube has been retracted. The tip is in the distal esophagus, and the side port is in the mid esophagus. This should be advanced 18 cm. 2. Pulmonary vascular congestion with small bilateral pleural effusions and associated bibasilar atelectasis. D/ / Stu Plaza MD / Stu Plaza MD Interpreting Provider: Stu Plaza MD X-Ray 04/02/16 08:14 IMPRESSION: Enteric tube in place with its tip likely within the distal stomach. D/ / Itzel Roldan Cha, MD / Itzel Roldan Cha, MD Interpreting Provider: Itzel Roldan Cha, MD Date of admission: 03/31/16 00:01 Primary care physician: Dion Whitman MD Consults: 04/05/16 06:33 Consult to Physical Therapy [CONS] Routine Comment: Evaluate, develop and implement POC OT [Consult to Occupational Therapy] [CONS] Routine Comment: Evaluate, develop and implement POC 03/31/16 06:56 Consult to Cardiology [CONS] Routine Comment: Consulting Provider: Cardiology [place] Reason for Consult: NSTEMI in setting of acute resp failure Call Completed: No 04/01/16 10:11 Consult to Nutrition [CONS] Routine Comment: Consulting Provider: NUTRITION Reason for Dietary Consult: TF Start and Manage Discharging clinician: Renato Erickson Anticipated date of discharge: 04/06/16 - Patient Status Disposition: Home, Self-Care Condition: Critical Functional capacity at discharge: independent ambulation Overall status at discharge: patient is progressing back to baseline - Discharge Instructions Instructions: Myocardial Infarction (DC), How to Stop Smoking (DC), Cigarette Smoking and Your Health (GEN), Chronic Obstructive Pulmonary Disease (DC), Cigarette Smoking and Your Health, Automobile Repossessor (GEN) Follow Up With: NO,PCP [Non-Partnered Physician] - Shannen Rosario MD [Partnered Physician] - Additional Instructions: Please follow up with your PCP and Dr. Rosario Please restart your home medications. Please taper your steroids as directed. Use your oxygen during the day and CPAP at night. Please return for any new or worsening symptoms. - Diet and Activity Activity: increase activity as tolerated Diet: advance to your usual diet - Hospital Course Hospital course: Ms. Cook is a 65 year old female with history of severe COPD who presented in respiratory distress. Patient was initially intubated. He also had hypertension. She was treated for pneumonia, COPD, septic shock. Patient did require pressure therapy for a short time. Patient responded well to mechanical ventilation. She was treated with antibiotics and steroids. After 2 days she was liberated from the ventilator without difficulty. Her oxygen requirements continued to decline throughout her stay. We continued her bronchodilators, she received 5 days of antibiotics, and was transitioned to by mouth steroids which we will continue to taper as an outpatient. Patient is stable time of discharge. - Time Spent with Patient Total time spent providing and/or coordinating discharge services: Physical Examination Vital Signs: Vital Signs, Last 4 Hours Temp Pulse Resp BP Pulse Ox 04/06/16 07:35 97.9 F 04/06/16 04:54 97.6 F 04/06/16 04:22 87 04/06/16 04:12 16 94 L 04/06/16 04:00 87 18 143/86 93 L General appearance: no acute distress ENT: oropharynx moist Effort: normal Auscultation: bilateral: diminished breath sounds Cardiovascular: regular rate and rhythm Gastrointestinal: normoactive bowel sounds, soft, non-tender, non-distended Extremities: no cyanosis, no edema, no clubbing normal mental status, non-focal exam <Shannen Rosario - Last Filed: 04/06/16 20:45> Labs on day of discharge: Labs from last 24 hours 04/06/16 04/06/16 04/05/16 04:18 04:18 20:40 WBC 15.6 H RBC 4.11 Hgb 13.1 Hct 39.8 MCV 96.8 MCH 31.9 MCHC 32.9 RDW 13.5 Plt Count 293 MPV 8.8 L Immature Gran % 6.0 H Seg Neutrophils % 62.8 Lymphocytes % 22.7 Monocytes % 7.5 Eosinophils % 0.4 Basophils % 0.6 Neutrophils # 9.8 H Lymphocytes # 3.5 Monocytes # 1.2 Eosinophils # 0.1 Basophils # 0.1 Reactive Lymphocytes Present A Platelet Estimate Normal Sodium 137 Potassium 4.3 Chloride 94 L Carbon Dioxide 35 H BUN 18 Creatinine 0.77 Est GFR ( Amer) > 60 Est GFR (Non-Af Amer) > 60 BUN/Creatinine Ratio 23 Glucose 78 POC Glucose 110 H Calculated Osmolality 285 Calcium 9.0 - Impressions ITS Impressions Chest X-Ray 03/31/16 09:46 IMPRESSION: Right IJ central venous catheter tip projects over the course of the superior vena cava. No evidence of acute cardiopulmonary process. D/ / 03/31/2016 10:38:35 Marshall Irwin MD / [email or web address] Interpreting Provider: Marshall Irwin MD Chest X-Ray 04/01/16 06:00 IMPRESSION: Left basilar atelectasis D/ / Drew Gramajo MD / Drew Gramajo MD Interpreting Provider: Drew Gramajo MD Chest X-Ray 04/02/16 06:00 IMPRESSION: 1. The orogastric tube has been retracted. The tip is in the distal esophagus, and the side port is in the mid esophagus. This should be advanced 18 cm. 2. Pulmonary vascular congestion with small bilateral pleural effusions and associated bibasilar atelectasis. D/ / Stu Plaza MD / Stu Plaza MD Interpreting Provider: Stu Palza MD X-Ray 04/02/16 08:14 IMPRESSION: Enteric tube in place with its tip likely within the distal stomach. D/ / Itzel Roldan Cha, MD / Itzel Roldan Cha, MD Interpreting Provider: Itzel Roldan Cha, MD Date of admission: 03/31/16 00:01 Primary care physician: Dion Whitman MD Consults: 04/05/16 06:33 Consult to Physical Therapy [CONS] Routine Comment: Evaluate, develop and implement POC OT [Consult to Occupational Therapy] [CONS] Routine Comment: Evaluate, develop and implement POC 03/31/16 06:56 Consult to Cardiology [CONS] Routine Comment: Consulting Provider: Cardiology [place] Reason for Consult: NSTEMI in setting of acute resp failure Call Completed: No 04/01/16 10:11 Consult to Nutrition [CONS] Routine Comment: Consulting Provider: NUTRITION Reason for Dietary Consult: TF Start and Manage - Hospital Course Hospital course: Ms. Cook is a 65 year old female - Time Spent with Patient Total time spent providing and/or coordinating discharge services: - Attending Attestation I examined this patient and my medical decision-making was reviewed with the MAINTENANCE ENGINEER OIL FIELD/PA/Advanced Practice Nurse/Resident Physician. I agree with the documented findings, disposition and treatment plan as described except to the extent set forth below. Patient seen and examined and reviewed lab with the resident. Patient is feeling much better today and her wheezing is better on examination. She feels strong enough today and ready to go home on taper steroid and bronchodilators. Patient stated she will quit smoking and will follow up as outpatient to address her SANJUANA and her non-compliancy. Patient will be seen in the office in about 1 month.
[2016-04-06] MEDS: Nicotine 21 MG PATCH.TD24 TD SCH (09:45)
[2016-04-06] MEDS: predniSONE 20 MG TABLET PO SCH (09:46)
[2016-04-06] MEDS: Metoprolol XL (24 HR) Succ 50 MG TAB.ER.24H PO SCH (09:46)
[2016-04-06] MEDS: Aspirin 81 MG TAB.CHEW PO SCH (09:47)
[2016-04-06] MEDS: THEOPHYLLINE ANHYDROUS 100 MG PO SCH (09:47)
[2016-04-06] MEDS: Tiotropium 18 MCG inhalation IH SCH (09:47)
[2016-04-06] MEDS: Budesonide/Formoterol 160/4.5 MDI IH SCH (09:48)
[2016-04-06 11:47] VITALS: BP 118/69
== END 2016-04-06 11:15 | disposition home or self-care (01) | DRG 871 ==
LOC: EMEROO 21:47 → ICNU 03-31 00:01
PROVIDERS: ADMIT Family Medicine; ATTEND Internal Medicine Hospice and Palliative Medicine

== ENCOUNTER 2017-01-26 17:53 | Inpatient (IN) ==
[2017-01-26] MEDS ORDERED: Ibuprofen 800 MG TABLET PO ONE (18:04)
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
[2017-01-26] MEDS ORDERED: *HR* HYDROmorphone (PF) 1 MG/ML SYRINGE IVP ONE (21:35)
[2017-01-26] MEDS ORDERED: Ondansetron 4 MG/2 ML VIAL IVP ONE (21:36)
--- NOTE | 2017-01-26 22:27 | Emergency Department Note ---
Disposition Clinical Impression: Dislocation Patellar fracture Qualifiers: Encounter type: initial encounter Fracture type: closed Fracture morphology: comminuted Fracture alignment: nondisplaced Laterality: right Qualified Code(s) : S82.044A - Nondisplaced comminuted fracture of right patella, initial encounter for closed fracture Humerus fracture Qualifiers: Encounter type: initial encounter Humerus Location: surgical neck Fracture type : closed Fracture alignment: nondisplaced Laterality: right Disposition: Admitted As Inpatient Condition: Good Time of Disposition: 22:28 Fall HPI - General Chief Complaint: ED Fall Stated Complaint: trip and fall Time Seen by Provider: 01/26/17 17:58 Source: patient, EMS Mode of arrival: EMS Nursing Notes Reviewed: Yes Vital Signs Reviewed: Yes - History of Present Illness HPI Narrative: Patient received on sign out from the day team, Dr. Rojas and Dr. Cam. Please refer to their note for complete history and physical exam on intake. In brief: Patient tripped and fell on a curb resulting in her injuries. She had no prodromal symptoms. Past medical history significant for CAD with ACS status post stent as well as hypertension, hyperlipidemia. Patient states that she is able to walk up a flight of stairs without stopping though she is short of breath at the top. - Related Data Home Medications Medication Instructions Recorded Confirmed ALPRAZolam [Xanax 0.25 MG Tablet] 0.25 - 0.5 mg PO BID PRN 08/09/15 01/26/17 Albuterol Sulfate [Albuterol 2 puff IH Q4H PRN 08/09/15 01/26/17 Inhaler] Ipratropium/Albuterol Neb [Duoneb] 3 ml IH QID PRN 08/12/15 01/26/17 Losartan/Hydrochlorothiazide 1 tab PO DAILY 08/12/15 01/26/17 [Hyzaar 100-25 Tablet] Omeprazole [PriLOSEC] 20 mg PO DAILY 08/12/15 01/26/17 Theophylline Anhydrous 200 mg PO DAILY 08/12/15 01/26/17 [Theophylline] Torsemide [Demadex] 10 - 20 mg PO DAILY PRN 03/30/16 01/26/17 Guaifenesin [Mucinex] 600 mg PO BID PRN 05/18/16 01/26/17 Tiotropium [Spiriva] 18 mcg IH DAILY 05/18/16 01/26/17 Amlodipine Besylate 2.5 mg PO DAILY 01/26/17 01/26/17 Atorvastatin [Lipitor] 40 mg PO HS 01/26/17 01/26/17 Cholecalciferol (Vitamin D3) 2,000 unit PO DAILY 01/26/17 01/26/17 [Vitamin D] Fluticasone/Salmeterol [Advair 1 each IH BID 01/26/17 01/26/17 500-50 Diskus] Metoprolol Succinate 100 mg PO DAILY 01/26/17 01/26/17 Triamcinolone Acet 0.1% CRM 1 appl TP BID 01/26/17 01/26/17 [Kenalog] Previous Rx's Medication Instructions Recorded Aspirin 81 mg PO DAILY tab.chew 04/06/16 Allergies Allergy/AdvReac Type Severity Reaction Status Date / Time No Known Allergies Allergy Verified 08/09/15 16:58 All systems ED: reviewed and negative except as stated. 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 HEENT: No facial asymmetry. Head is normocephalic and atraumatic. PERRLA, EOMI. oral mucosa moist. Trachea midline. No ecchymosis, hematoma, abrasions , or lacerations patient's scalp or face. Cardiovascular: Heart regular rate and rhythm without clicks, rubs, gallops, or murmurs. No JVD. PMI nondisplaced. Lateral radial posterior tibial pulses 2/ 4 equal. Respiratory: Symmetric chest rise with good respiratory effort. Bilateral breath sounds are clear without wheezing, crackles, or rhonchi. Abdomen: Bowel sounds present normoactive x-4 quadrants. Abdomen is soft, nondistended, and nontender. No organomegaly noted. Musculoskeletal: Left shoulder profile notably distorted consistent with anterior humeral head dislocation. Right patella with overlying swelling and ecchymosis. No midline C-spine tenderness. No midline T or L-spine tenderness. Neuro: Sensation light touch intact in left upper extremity and right lower extremity. Psych: Patient's affect is appropriate for situation. - General Limitations: other General appearance: alert, in no apparent distress Course Course Narrative: Patient has multiple fractures: Right patella fracture. Left comminuted humeral fracture at the surgical neck as well as left anterior humeral head dislocation. Patient is not safe for discharge home simply that she would not be or perform her daily activities of living with these multiple fractures. She agrees to admission for orthopedic consultation. Dr. Cam spoke with Dr. : Agrees to consult the patient. I spoke with the admitting hospitalist, Dr. Isidro, who agrees to accept the patient for continued pain management and orthopedic consultation. Vital Signs Temperature 97.7 F 01/26/17 17:55 Pulse Rate 75 01/26/17 17:55 Respiratory Rate 18 01/26/17 17:55 Blood Pressure 118/83 01/26/17 17:55 O2 Sat by Pulse Oximetry 93 01/26/17 17:55 Temperature 97.7 F 01/26/17 17:55 Pulse Rate 75 01/26/17 17:55 Respiratory Rate 18 01/26/17 17:55 Blood Pressure 118/83 01/26/17 17:55 O2 Sat by Pulse Oximetry 94 01/26/17 17:59 Oxygen Delivery Oxygen Delivery Nasal Cannula Attestation Statement - Attestation Attestation: I, Corey Rasmussen MD, personally evaluated this patient and discussed their management with the resident physician. I reviewed the resident's note and agree with the documented findings, medical decision making, and plan of care. This patient was signed out at shift change from Dr. Cam and Dr. Rojas. Patient had a fall and has a comminuted fracture of the right patella and a comminuted fracture of the surgical neck of the left humerus with an anterior dislocation of the left shoulder. Orthopedics was consulted and recommended admission by the hospitalist with consultation. On examination patient is a well-developed elderly female in no acute distress. She is alert and oriented 3. No cyanosis or diaphoresis. Breath sounds are clear and equal bilaterally. Heart regular rate and rhythm. Left shoulder is tender and swollen. Range of motion not tested. Good fixed interest dealer strength distally with normal sensation, normal pulses, and normal capillary refill. Right knee is swollen and ecchymotic. Range of motion not tested. The hospitalist, Dr. Isidro, was consulted and accepted admission of the patient.
[2017-01-26] MEDS ORDERED: 0.9 % Sodium Chloride 1,000 ML IVC ONE (23:19)
[2017-01-26] MEDS ORDERED: *HR* FentaNYL (PF) 100 MCG/2 ML VIAL IVP ONE (23:19)
[2017-01-26] MEDS ORDERED: *HR* FentaNYL (PF) 100 MCG/2 ML VIAL ONE (23:23)
[2017-01-26] MEDS ORDERED: 0.9 % Sodium Chloride 1,000 ML ONE (23:23)
[2017-01-27] MEDS ORDERED: *HR* HYDROmorphone (PF) 1 MG/ML SYRINGE IVP ONE (00:17)
--- NOTE | 2017-01-27 01:36 | Internal Med History&Physical ---
Date of Encounter: 01/27/17 Time of Encounter: 01:36 Assessment and Plan (1) Humerus fracture Current visit: Yes Status: Acute from a mechanical fall, will do pain management, DVT prophylaxis, sling, no weight bearing, orthopedic evaluation Qualifiers: Encounter type: initial encounter Humerus Location: supracondylar fracture without intercondylar fracture Fracture type: closed Fracture morphology: comminuted Fracture alignment: displaced Laterality: left Qualified Code(s ): S42.422A - Displaced comminuted supracondylar fracture without intercondylar fracture of left humerus, initial encounter for closed fracture (2) Patellar fracture Current visit: Yes Status: Acute per humeral fracture section Qualifiers: Encounter type: initial encounter Fracture type: closed Fracture morphology: comminuted Fracture alignment: nondisplaced Laterality: right Qualified Code(s): S82.044A - Nondisplaced comminuted fracture of right patella , initial encounter for closed fracture (3) GERD (gastroesophageal reflux disease) Current visit: Yes Status: Chronic continue PPI Qualifiers: Esophagitis presence: without esophagitis Qualified Code(s): K21.9 - Gastro -esophageal reflux disease without esophagitis (4) HTN (hypertension) Current visit: Yes Status: Chronic continue antihypertensives with BP monitoring Qualifiers: Hypertension type: essential hypertension Qualified Code(s): I10 - Essential (primary) hypertension (5) COPD (chronic obstructive pulmonary disease) Current visit: Yes Status: Chronic currently wheezing but not in an acute exacerbation, will continue home regimen with PRN nebs Qualifiers: COPD type: emphysema Emphysema type: panlobular Qualified Code(s): J43.1 - Panlobular emphysema Internal Medicine - H&P: HPI Chief complaint: left hip pain Admitted From: Emergency Dept Plans for Post Hospital Care: Home History of present illness: Ms. Cook is a 66 year old female with a history of COPD/HTN who was brought in after a fall. She reports that she was ambulating and tripped over a parking block and fell on her left side injuring her left shoulder and right knee in the process. She experienced excruciating pain in the left arm as well as right knee. Pain was 10/10 in severity and radiated both proximally and distally, it was a mixture of sharp and achy pain. The pain was worse with movement. She was brought to the ER of [facility] for further evaluation and management. Past Med Surg Social Fam HX - Past Medical History Medical history: COPD, coronary artery disease, GERD, hyperlipidemia, hypertension, myocardial infarction Psychiatric history: anxiety - Past Surgical History Surgical History: hysterectomy - Social History Smoking Status: Former smoker Smokeless Tobacco Status: No Alcohol use: none Drug use: none - Family History Mother Living Status: Age at : 93 Cause of : CHF Hx Family Cardiac Disorders: Yes Hx Family Cancer: Yes (colon ca) Hx Family Neurologic Disorders: Yes (cva) Hx Family HEENT Disorders: Yes (macular degeneration) Father Adopted: No Family Member Ethnicity: Non- Living Status: Age at : 59 Cause of : [place] Hx Family Cardiac Disorders: Yes Hx Family Respiratory Disorders: No Hx Family Cancer: Yes (colon ca 1979) Hx Family GI Disorders: No Hx Family Endocrine Disorder: No Hx Family Neuromuscular Disorders: No Hx Family Neurologic Disorders: Yes (CVA with left side weakness) Hx Family HEENT Disorders: Yes (macular degeneration) Hx Family Autoimmune Disorders: No Internal Medicine - H&P: Meds ALPRAZolam [Xanax 0.25 MG Tablet] 0.25 - 0.5 mg PO BID PRN 08/09/15 [History] Albuterol Sulfate [Albuterol Inhaler] 2 puff IH Q4H PRN 08/09/15 [History] Ipratropium/Albuterol Neb [Duoneb] 3 ml IH QID PRN 08/12/15 [History] Losartan/Hydrochlorothiazide [Hyzaar 100-25 Tablet] 1 tab PO DAILY 08/12/15 [ History] Omeprazole [PriLOSEC] 20 mg PO DAILY 08/12/15 [History] Theophylline Anhydrous [Theophylline] 200 mg PO DAILY 08/12/15 [History] Torsemide [Demadex] 10 - 20 mg PO DAILY PRN 03/30/16 [History] Aspirin 81 mg PO DAILY tab.chew 04/06/16 [Rx] Guaifenesin [Mucinex] 600 mg PO BID PRN 05/18/16 [History] Tiotropium [Spiriva] 18 mcg IH DAILY 05/18/16 [History] Amlodipine Besylate 2.5 mg PO DAILY 01/26/17 [History] Atorvastatin [Lipitor] 40 mg PO HS 01/26/17 [History] Cholecalciferol (Vitamin D3) [Vitamin D] 2,000 unit PO DAILY 01/26/17 [History] Fluticasone/Salmeterol [Advair 500-50 Diskus] 1 each IH BID 01/26/17 [History] Metoprolol Succinate 100 mg PO DAILY 01/26/17 [History] Triamcinolone Acet 0.1% CRM [Kenalog] 1 appl TP BID 01/26/17 [History] 3 Allergy/AdvReac Type Severity Reaction Status Date / Time No Known Allergies Allergy Verified 08/09/15 16:58 All Systems PM: A 10-system review of systems was performed and is negative for pertinent findings except as documented above in the HPI. - Constitutional Vitals: Temp Pulse Resp BP Pulse Ox 97.7 F 80 18 94/64 93 01/26/17 17:55 01/26/17 22:32 01/26/17 22:32 01/26/17 22:32 01/26/17 22:32 GENERAL: Adult female, lying in bed, Alert, in obvious pain HEENT: NC/AT, EOMI, PERRLA, anicteric sclera, normal conjunctiva, supple, clear nares, moist mucous membranes, RESP: Bilateral end expiratory wheeze with prolonged expiratory phase, no crackles or wheeze CARDIO: Normal heart sounds with RRR, no murmurs, no JVD, no ankle edema GI: Soft, full, no tenderness, no organomegaly felt, normal bowel sounds heard MUSCULOSKELETAL: Grossly normal movements bilaterally, right knee tender, effusion, tender when moved, left arm in a sling, NEUROLOGIC: CN 2-12 intact grossly. No gross motor/sensory deficit appreciated, PSYCHIATRY: AAO x 3. SKIN: bruises noted from the fall Internal Med - H&P Results - Labs CBC & Chem 7: 01/27/17 04:34 01/27/17 04:34 - Diagnostic Studies Other Images Status: image reviewed by me (right knee xray)
[2017-01-27] MEDS ORDERED: Naloxone 0.4 MG/ML INJ IVP PRN (01:43)
[2017-01-27] MEDS ORDERED: ALPRAZolam 0.25 MG TABLET PO PRN (01:45)
[2017-01-27] MEDS ORDERED: Albuterol 2.5 MG/3 ML NEBULIZER IH PRN (01:46)
[2017-01-27] MEDS ORDERED: ALPRAZolam 1 MG TABLET PO PRN (02:47)
[2017-01-27] MEDS: 0.9 % Sodium Chloride 1,000 ML IVC SCH ×2 (02:56→16:08)
[2017-01-27 05:26] LABS: Hematocrit 42.9 % (35.3-44.9); Hemoglobin 14.1 g/dL (11.5-15.4); Mean Corpuscular HGB Conc 32.9 g/dL (31.6-35.5); Mean Corpuscular Hemoglobin 31.3 pg (28.0-33.3); Mean Corpuscular Volume 95.1 fL (83.0-100.0); Mean Platelet Volume 9.2 fL (9.4-12.4); Platelet Count 265 K/mcL (140-400); Red Blood Count 4.51 M/mcL (3.82-4.97); Red Cell Distribution Width 12.9 % (11.5-14.5)
[2017-01-27 05:30] LABS: Prothrombin Time 11.1 Seconds (9.4-12.1)
[2017-01-27] MEDS: *HR* Morphine 2 MG/ML SYRINGE IVP PRN ×4 (05:36→20:28)
[2017-01-27 05:43] LABS: BUN/Creatinine Ratio 16 (6-26); Blood Urea Nitrogen 12 mg/dL (7-20); Calcium 8.5 mg/dL (8.6-10.8); Carbon Dioxide 29 mEq/L (19-29); Chloride 96 mEq/L (98-109); Glucose 109 mg/dL (70-99); Magnesium 1.6 mg/dL (1.6-2.6); Osmolality,Calculated 270 (280-300); Phosphorous 4.8 mg/dL (2.3-4.7); Potassium 4.4 mEq/L (3.5-4.5); Sodium 130 mEq/L (136-145); eGFR For African Americans > 60 (> 60); eGFR For Non-African Americans > 60 (> 60)
--- NOTE | 2017-01-27 07:28 | Orthopedic Consult Note ---
Date of Encounter: 01/27/17 Time of Encounter: 07:26 History of Present Illness HPI: Ms. Cook is a 66 year old female status post fall yesterday denies head trauma denies loss of consciousness. Presents with pain to the ER in left shoulder and right knee. Physical exam alert and oriented 3 Left upper extremity in sling and swath neurovascularly intact Right lower extremity in brace progressing intact X-rays show fracture dislocation of left proximal humerus and displaced comminuted fracture of right patella. Recommendation is for open reduction internal fixation of left proximal humerus and right patella. Patient has significant COPD surgical blood plan for Sunday. We reviewed the risks and benefits as well as recovery. All questions were answered. The patient agreed to this treatment plan and appeared to understand the plan is reviewed. Past Med Surg Social Fam HX - Past Medical History Medical history: COPD, coronary artery disease, GERD, hyperlipidemia, hypertension, myocardial infarction Psychiatric history: anxiety - Past Surgical History Surgical History: hysterectomy - Social History Smoking Status: Former smoker Smokeless Tobacco Status: No Alcohol use: none Drug use: none - Family History Mother Living Status: Age at : 93 Cause of : CHF Hx Family Cardiac Disorders: Yes Hx Family Cancer: Yes (colon ca) Hx Family Neurologic Disorders: Yes (cva) Hx Family HEENT Disorders: Yes (macular degeneration) Father Adopted: No Family Member Ethnicity: Non- Living Status: Age at : 59 Cause of : [place] Hx Family Cardiac Disorders: Yes Hx Family Respiratory Disorders: No Hx Family Cancer: Yes (colon ca 1979) Hx Family GI Disorders: No Hx Family Endocrine Disorder: No Hx Family Neuromuscular Disorders: No Hx Family Neurologic Disorders: Yes (CVA with left side weakness) Hx Family HEENT Disorders: Yes (macular degeneration) Hx Family Autoimmune Disorders: No Medications and Allergies ALPRAZolam [Xanax 0.25 MG Tablet] 0.25 - 0.5 mg PO BID PRN 08/09/15 [History] Albuterol Sulfate [Albuterol Inhaler] 2 puff IH Q4H PRN 08/09/15 [History] Ipratropium/Albuterol Neb [Duoneb] 3 ml IH QID PRN 08/12/15 [History] Losartan/Hydrochlorothiazide [Hyzaar 100-25 Tablet] 1 tab PO DAILY 08/12/15 [ History] Omeprazole [PriLOSEC] 20 mg PO DAILY 08/12/15 [History] Theophylline Anhydrous [Theophylline] 200 mg PO DAILY 08/12/15 [History] Torsemide [Demadex] 10 - 20 mg PO DAILY PRN 03/30/16 [History] Aspirin 81 mg PO DAILY tab.chew 04/06/16 [Rx] Guaifenesin [Mucinex] 600 mg PO BID PRN 05/18/16 [History] Tiotropium [Spiriva] 18 mcg IH DAILY 05/18/16 [History] Amlodipine Besylate 2.5 mg PO DAILY 01/26/17 [History] Atorvastatin [Lipitor] 40 mg PO HS 01/26/17 [History] Cholecalciferol (Vitamin D3) [Vitamin D] 2,000 unit PO DAILY 01/26/17 [History] Fluticasone/Salmeterol [Advair 500-50 Diskus] 1 each IH BID 01/26/17 [History] Metoprolol Succinate 100 mg PO DAILY 01/26/17 [History] Triamcinolone Acet 0.1% CRM [Kenalog] 1 appl TP BID 01/26/17 [History] 3 Allergy/AdvReac Type Severity Reaction Status Date / Time No Known Allergies Allergy Verified 08/09/15 16:58 All Systems Reviewed: A 10-system review of systems was performed and is negative for pertinent findings except as documented above in the HPI. Physical Exam - Constitutional Vitals: Temp Pulse Resp BP Pulse Ox 97.6 F 74 15 132/87 91 01/27/17 05:37 01/27/17 05:37 01/27/17 05:37 01/27/17 05:37 01/27/17 05:37 Results - Labs Result Diagrams: 01/27/17 04:34 01/27/17 04:34 Labs: Abnormal lab results WBC 13.4 K/mcL (4.3-11.1) H 01/27/17 04:34 MPV 9.2 fL (9.4-12.4) L 01/27/17 04:34 Sodium 130 mEq/L (136-145) L 01/27/17 04:34 Chloride 96 mEq/L (98-109) L 01/27/17 04:34 Glucose 109 mg/dL (70-99) H 01/27/17 04:34 Calculated Osmolality 270 (280-300) L 01/27/17 04:34 Calcium 8.5 mg/dL (8.6-10.8) L 01/27/17 04:34 Phosphorus 4.8 mg/dL (2.3-4.7) H 01/27/17 04:34 H & H 01/27/17 Range/Units 04:34 Hgb 14.1 (11.5-15.4) g/dL Hct 42.9 (35.3-44.9) % All other labs normal. Consult Discharge Plan - Plan Referrals: Dion Whitman MD [Primary Care Provider] -
[2017-01-27] MEDS: Aspirin 81 MG TAB.CHEW PO SCH (08:42)
[2017-01-27] MEDS: amLODIPine 5 MG TABLET PO SCH (08:42)
[2017-01-27] MEDS: Metoprolol XL (24 HR) Succ 50 MG TAB.ER.24H PO SCH (08:42)
[2017-01-27] MEDS: Losartan/HCTZ 50-12.5 TABLET PO SCH (08:42)
[2017-01-27] MEDS: *HR* OxyCODONE Immed Rel 5 MG TABLET PO PRN ×3 (08:42→23:23)
[2017-01-27] MEDS: Cholecalciferol (D-3) 1,000 UNIT TABLET PO SCH (08:43)
[2017-01-27] MEDS: Tiotropium 18 MCG inhalation IH SCH (09:23)
[2017-01-27] MEDS: Ipratropium/Albuterol Neb 3 ML IH SCH ×3 (09:24→23:00)
[2017-01-27] MEDS: Budesonide/Formoterol 160/4.5 MDI IH SCH ×2 (09:24→23:00)
[2017-01-27] MEDS: *HR* Heparin 5,000 UNIT/ML VIAL SQ SCH ×3 (09:45→23:23)
--- NOTE | 2017-01-27 15:01 | Internal Med Progress Note ---
Date of Encounter: 01/27/17 Time of Encounter: 08:15 - Assessment and plan (1) Humerus fracture Current Visit: Yes Status: Acute Assessment and plan: Acute left humerus comminuted fracture of the surgical neck with evidence of glenohumeral dislocation anteriorly - secondary to mechanical fall Continue left upper extremity sling, IV Morphine PRN Humerus x-ray - reviewed Left forearm x-ray - reviewed, negative Orthopedic consult - open reduction internal fixation of left proximal humerus on Sunday Cardiac telemetry, labs in a.m., monitor closely Qualifiers: Encounter type: initial encounter Humerus Location: supracondylar fracture without intercondylar fracture Fracture type: closed Fracture morphology: comminuted Fracture alignment: displaced Laterality: left Qualified Code(s ): S42.422A - Displaced comminuted supracondylar fracture without intercondylar fracture of left humerus, initial encounter for closed fracture (2) Patellar fracture Current Visit: Yes Status: Acute Assessment and plan: Acute comminuted right patellar fracture - continue mechanical fall Right lower extremity brace Orthopedics consult - surgery on Sunday Qualifiers: Encounter type: initial encounter Fracture type: closed Fracture morphology: comminuted Fracture alignment: nondisplaced Laterality: right Qualified Code(s): S82.044A - Nondisplaced comminuted fracture of right patella , initial encounter for closed fracture (3) COPD (chronic obstructive pulmonary disease) Current Visit: Yes Status: Chronic Assessment and plan: COPD with mild exacerbation Continue DuoNeb breathing treatment, Symbicort, Spiriva Continue O2 via nasal cannula Qualifiers: COPD type: emphysema Emphysema type: panlobular Qualified Code(s): J43.1 - Panlobular emphysema (4) CAD (coronary artery disease) Current Visit: Yes Status: Chronic Assessment and plan: Coronary artery disease, stable - h/o non-STEMI due to demand ischemia in April 2016 Continue Aspirin, Zocor EKG - pending Qualifiers: Coronary Disease-Associated Artery/Lesion type: [place] artery [place] vs. transplanted heart: [place] heart Associated angina: without angina Qualified Code(s): I25.10 - Atherosclerotic heart disease of [place] coronary artery without angina pectoris (5) HTN (hypertension) Current Visit: Yes Status: Chronic Assessment and plan: Essential hypertension, controlled, monitor Continue home dose of Toprol-XL, Hyzaar, Norvasc Qualifiers: Hypertension type: essential hypertension Qualified Code(s): I10 - Essential (primary) hypertension (6) DVT prophylaxis Current Visit: Yes Status: Acute Assessment and plan: Continue heparin subcutaneous - Time Spent With Patient 25 - 35 minutes - Subjective Interval history: Examined this morning. Patient is awake and alert. Not in any distress. Denies chest pain or shortness of breath. Hemodynamically stable. No fever. Patient complains of pain over her left shoulder and right knee. Rates it 6 out of 10. Alleviated with pain medication. Patient also complains of mild cough which is nonproductive. No other acute events or complaints. Admitted for left humerus fracture and right patellar fracture after a fall. Patient denies loss of consciousness or dizziness at the time. Probable mechanical fall. - Constitutional Vitals: Temp Pulse Resp BP Pulse Ox 98.1 F 84 18 121/80 95 01/27/17 11:25 01/27/17 11:25 01/27/17 11:25 01/27/17 11:25 01/27/17 11:25 General appearance: Present: cooperative, A&O X 3, pleasant, no acute distress, obese, answers questions appropriately Exam: In discomfort due to pain - Head Head exam: Present: atraumatic - Eye Eye exam: Present: EOMI - ENT ENT exam: Present: mucous membranes dry - Respiratory Respiratory exam: Present: CTAB. Absent: rales, rhonchi, wheezes, tachypnea - Cardiovascular Cardiovascular exam: Present: RRR, +S1, +S2 - GI/Abdominal GI/Abdominal exam: Present: soft. Absent: distended, firm, guarding, tenderness - Extremities Exam Extremities exam: Present: radial pulses palpable and symmetrical. Absent: calf tenderness, cyanotic, pedal edema Additional comments: Left upper extremity in sling - neurovascularly intact Right lower extremity in brace - neurovascularly intact - Neurological Exam Neurological exam: Present: alert, oriented X3, no focal deficits. Absent: facial droop, speech deficit Internal Medicine: Result - Labs CBC & Chem 7: 01/27/17 04:34 01/27/17 04:34 Labs: Short CBC 01/27/17 Range/Units 04:34 WBC 13.4 H (4.3-11.1) K/mcL Hgb 14.1 (11.5-15.4) g/dL Hct 42.9 (35.3-44.9) % Plt Count 265 (140-400) K/mcL BMP 01/27/17 04:34 Sodium 130 L Potassium 4.4 Chloride 96 L Carbon Dioxide 29 BUN 12 Creatinine 0.75 Glucose 109 H Calcium 8.5 L - ABG Interpretation ABG results: PT/INR, D-dimer PT 11.1 Seconds (9.4-12.1) 01/27/17 04:34 Consult Discharge Plan - Plan Referrals: Dion Whitman MD [Primary Care Provider] -
[2017-01-28] MEDS: *HR* Morphine 2 MG/ML SYRINGE IVP PRN ×5 (02:02→21:19)
[2017-01-28] MEDS: *HR* OxyCODONE Immed Rel 5 MG TABLET PO PRN ×3 (03:40→19:53)
[2017-01-28 05:02] LABS: Basophils % 0.4 %; Eosinophils # 0.2 K/mcL (0.0-0.6); Eosinophils % 1.8 %; Hematocrit 38.3 % (35.3-44.9); Hemoglobin 12.7 g/dL (11.5-15.4); Immature Granulocytes % 0.3 % (0-4); Lymphocytes # 2.3 K/mcL (0.6-4.6); Lymphocytes % 21.1 %; Mean Corpuscular HGB Conc 33.2 g/dL (31.6-35.5); Mean Corpuscular Hemoglobin 31.8 pg (28.0-33.3); Mean Corpuscular Volume 95.8 fL (83.0-100.0); Mean Platelet Volume 9.5 fL (9.4-12.4); Monocytes # 0.7 K/mcL (0.0-1.3); Monocytes % 6.8 %; Neutrophils # 7.5 K/mcL (1.6-8.9); Platelet Count 244 K/mcL (140-400); Red Cell Distribution Width 12.9 % (11.5-14.5); Segmented Neutrophils % 69.6 %
[2017-01-28] MEDS: Ipratropium/Albuterol Neb 3 ML IH SCH ×4 (05:27→22:28)
[2017-01-28 05:35] LABS: BUN/Creatinine Ratio 14 (6-26); Blood Urea Nitrogen 10 mg/dL (7-20); Calcium 8.3 mg/dL (8.6-10.8); Carbon Dioxide 27 mEq/L (19-29); Chloride 92 mEq/L (98-109); Glucose 101 mg/dL (70-99); Osmolality,Calculated 261 (280-300); Potassium 3.7 mEq/L (3.5-4.5); Sodium 126 mEq/L (136-145); eGFR For African Americans > 60 (> 60); eGFR For Non-African Americans > 60 (> 60)
[2017-01-28] MEDS: *HR* Heparin 5,000 UNIT/ML VIAL SQ SCH ×3 (06:42→21:19)
--- NOTE | 2017-01-28 07:15 | Orthopedics Progress Note ---
Date of Encounter: 01/28/17 Time of Encounter: 07:15 Subjective Interval history: Patient seen this morning resting comfortably for surgery tomorrow all questions were answered. Objective Vital signs: Vital Signs Temp Pulse Resp BP Pulse Ox 01/27/17 23:47 98.4 F 70 19 120/75 97 01/27/17 23:00 19 93 01/27/17 20:44 98.3 F 71 21 118/76 97 01/27/17 17:35 98.2 F 87 16 120/75 95 01/27/17 16:17 16 120/75 88 01/27/17 11:25 98.1 F 84 18 121/80 95 01/27/17 09:25 20 92 Intake and Output 01/27/17 01/27/17 01/28/17 15:59 23:59 07:59 Intake Total 1000 / 1000 200 / 200 600 / 600 Output Total 550 / 550 450 / 450 550 / 550 Balance 450 / 450 -250 / -250 50 / 50 Intake: IV Fluids 1000 / 1000 0.9 % Sodium Chloride 1,000 ML 1000 / 1000 @ 100 mls/hr IVC .Q10H [facility] Rx#: [id number] Oral 200 / 200 600 / 600 Output: Catheter 550 / 550 450 / 450 550 / 550 Other: Weight 102.2 kg Patient Weight 01/28/17 23:59 Weight 102.2 kg - Labs CBC & BMP: 01/28/17 03:29 01/28/17 03:29 Labs: Abnormal lab results Sodium 126 mEq/L (136-145) L 01/28/17 03:29 Chloride 92 mEq/L (98-109) L 01/28/17 03:29 Glucose 101 mg/dL (70-99) H 01/28/17 03:29 Calculated Osmolality 261 (280-300) L 01/28/17 03:29 Calcium 8.3 mg/dL (8.6-10.8) L 01/28/17 03:29 Phosphorus 4.8 mg/dL (2.3-4.7) H 01/27/17 04:34 Consult Discharge Plan - Plan Referrals: Dion Whitman MD [Primary Care Provider] -
[2017-01-28] MEDS: Budesonide/Formoterol 160/4.5 MDI IH SCH ×2 (08:03→22:28)
[2017-01-28] MEDS: Tiotropium 18 MCG inhalation IH SCH (08:04)
[2017-01-28] MEDS: Metoprolol XL (24 HR) Succ 50 MG TAB.ER.24H PO SCH (08:22)
[2017-01-28] MEDS: amLODIPine 5 MG TABLET PO SCH (08:22)
[2017-01-28] MEDS: Losartan/HCTZ 50-12.5 TABLET PO SCH (08:23)
[2017-01-28] MEDS: Aspirin 81 MG TAB.CHEW PO SCH (08:23)
[2017-01-28] MEDS: Cholecalciferol (D-3) 1,000 UNIT TABLET PO SCH (08:23)
[2017-01-28] MEDS ORDERED: 0.9 % Sodium Chloride 1,000 ML IVC SCH (10:00)
--- NOTE | 2017-01-28 10:02 | Internal Med Progress Note ---
Date of Encounter: 01/28/17 Time of Encounter: 07:40 - Assessment and plan (1) Humerus fracture Current Visit: Yes Status: Acute Assessment and plan: Acute left humerus comminuted fracture of the surgical neck with evidence of glenohumeral dislocation anteriorly - secondary to mechanical fall Continue left upper extremity sling, IV Morphine PRN Humerus x-ray - reviewed Left forearm x-ray - reviewed, negative Orthopedic consult - open reduction internal fixation of left proximal humerus, scheduled for Sunday Cardiac telemetry, labs in a.m., monitor closely Qualifiers: Encounter type: initial encounter Humerus Location: supracondylar fracture without intercondylar fracture Fracture type: closed Fracture morphology: comminuted Fracture alignment: displaced Laterality: left Qualified Code(s ): S42.422A - Displaced comminuted supracondylar fracture without intercondylar fracture of left humerus, initial encounter for closed fracture (2) Patellar fracture Current Visit: Yes Status: Acute Assessment and plan: Acute comminuted right patellar fracture - secondary to mechanical fall Right lower extremity brace Orthopedics consult - surgery for Sunday Qualifiers: Encounter type: initial encounter Fracture type: closed Fracture morphology: comminuted Fracture alignment: nondisplaced Laterality: right Qualified Code(s): S82.044A - Nondisplaced comminuted fracture of right patella , initial encounter for closed fracture (3) COPD (chronic obstructive pulmonary disease) Current Visit: Yes Status: Chronic Assessment and plan: COPD with mild exacerbation Continue DuoNeb breathing treatment, Symbicort, Spiriva Continue O2 via nasal cannula, incentive spirometry Qualifiers: COPD type: emphysema Emphysema type: panlobular Qualified Code(s): J43.1 - Panlobular emphysema (4) CAD (coronary artery disease) Current Visit: Yes Status: Chronic Assessment and plan: Coronary artery disease, stable - h/o non-STEMI due to demand ischemia in April 2016 Continue Aspirin, Zocor Qualifiers: Coronary Disease-Associated Artery/Lesion type: [place] artery [place] vs. transplanted heart: [place] heart Associated angina: without angina Qualified Code(s): I25.10 - Atherosclerotic heart disease of [place] coronary artery without angina pectoris (5) HTN (hypertension) Current Visit: Yes Status: Chronic Assessment and plan: Essential hypertension, controlled, monitor Continue home dose of Toprol-XL, Hyzaar, Norvasc Qualifiers: Hypertension type: essential hypertension Qualified Code(s): I10 - Essential (primary) hypertension (6) DVT prophylaxis Current Visit: Yes Status: Acute Assessment and plan: Continue Heparin subcutaneous - Time Spent With Patient 25 - 35 minutes - Subjective Interval history: Examined this morning. Patient is awake and alert. Not in any distress. Denies chest pain or shortness of breath. Hemodynamically stable. No fever. Patient complains of pain over her left shoulder and right knee. Improves with pain medication. Rates it 4 out of 10 at present. Patient also complains of mild cough which is nonproductive. No other acute events or complaints. Admitted for left humerus fracture and right patellar fracture after a fall. Patient denies loss of consciousness or dizziness at the time. Probable mechanical fall. Orthopedics following, surgery scheduled for tomorrow. - Constitutional Vitals: Temp Pulse Resp BP Pulse Ox 97.9 F 85 18 130/77 93 01/28/17 07:54 01/28/17 07:54 01/28/17 08:03 01/28/17 07:54 01/28/17 08:03 General appearance: Present: cooperative, A&O X 3, pleasant, no acute distress, obese, answers questions appropriately - Head Head exam: Present: atraumatic - Eye Eye exam: Present: EOMI - ENT ENT exam: Present: mucous membranes moist - Respiratory Respiratory exam: Present: wheezes (Bilateral). Absent: chest wall tenderness, rales, rhonchi, tachypnea - Cardiovascular Cardiovascular exam: Present: RRR, +S1, +S2 - GI/Abdominal GI/Abdominal exam: Present: soft. Absent: distended, firm, guarding, tenderness - Extremities Exam Extremities exam: Present: radial pulses palpable and symmetrical. Absent: calf tenderness, cyanotic, pedal edema Additional comments: Left upper extremity in sling - neurovascularly intact Right lower extremity in brace - neurovascularly intact - Neurological Exam Neurological exam: Present: alert, oriented X3, no focal deficits. Absent: facial droop, speech deficit Internal Medicine: Result - Labs CBC & Chem 7: 01/28/17 03:29 01/28/17 03:29 Labs: Short CBC 01/28/17 Range/Units 03:29 WBC 10.7 (4.3-11.1) K/mcL Hgb 12.7 (11.5-15.4) g/dL Hct 38.3 (35.3-44.9) % Plt Count 244 (140-400) K/mcL Neutrophils # 7.5 (1.6-8.9) K/mcL BMP 01/28/17 03:29 Sodium 126 L Potassium 3.7 Chloride 92 L Carbon Dioxide 27 BUN 10 Creatinine 0.74 Glucose 101 H Calcium 8.3 L - ABG Interpretation ABG results: PT/INR, D-dimer PT 11.1 Seconds (9.4-12.1) 01/27/17 04:34 Consult Discharge Plan - Plan Referrals: Dion Whitman MD [Primary Care Provider] -
--- NOTE | 2017-01-28 21:10 | Event Note ---
Date of Encounter: 01/29/17 Time of Encounter: 21:09 Recommendation is for open reduction internal fixation of left proximal humerus and right patella. Patient has significant COPD surgical plan for Sunday. Post-operative appt will be made. Fax appt to the floor
[2017-01-29] MEDS: Ipratropium/Albuterol Neb 3 ML IH SCH ×4 (03:47→23:59)
[2017-01-29 05:29] LABS: BUN/Creatinine Ratio 14 (6-26); Blood Urea Nitrogen 9 mg/dL (7-20); Calcium 8.6 mg/dL (8.6-10.8); Carbon Dioxide 32 mEq/L (19-29); Chloride 85 mEq/L (98-109); Glucose 114 mg/dL (70-99); Osmolality,Calculated 260 (280-300); Potassium 3.3 mEq/L (3.5-4.5); Sodium 125 mEq/L (136-145); eGFR For African Americans > 60 (> 60); eGFR For Non-African Americans > 60 (> 60)
[2017-01-29] MEDS: *HR* Heparin 5,000 UNIT/ML VIAL SQ SCH ×3 (05:50→23:02)
[2017-01-29] MEDS: *HR* Morphine 2 MG/ML SYRINGE IVP PRN (06:44)
[2017-01-29] MEDS: Losartan/HCTZ 50-12.5 TABLET PO SCH (07:38)
[2017-01-29] MEDS: Aspirin 81 MG TAB.CHEW PO SCH (07:38)
[2017-01-29] MEDS: Cholecalciferol (D-3) 1,000 UNIT TABLET PO SCH (07:39)
[2017-01-29] MEDS: amLODIPine 5 MG TABLET PO SCH (08:03)
[2017-01-29] MEDS: *HR* OxyCODONE Immed Rel 5 MG TABLET PO PRN (08:03)
[2017-01-29] MEDS: Metoprolol XL (24 HR) Succ 50 MG TAB.ER.24H PO SCH (08:04)
[2017-01-29] MEDS ORDERED: *HR* Morphine 2 MG/ML SYRINGE IVP ONE (09:47)
[2017-01-29] MEDS ORDERED: *HR* Morphine 2 MG/ML SYRINGE IVP PRN (09:48)
[2017-01-29] MEDS ORDERED: *HR* OxyCODONE Immed Rel 5 MG TABLET PO PRN (09:57)
[2017-01-29] MEDS: Budesonide/Formoterol 160/4.5 MDI IH SCH ×2 (10:23→23:05)
[2017-01-29] MEDS: Tiotropium 18 MCG inhalation IH SCH (10:24)
[2017-01-29] MEDS ORDERED: ceFAZolin 2,000 MG in D5% in Water 100 ML IVPB SCH (11:30)
--- NOTE | 2017-01-29 13:49 | Internal Med Progress Note ---
Date of Encounter: 01/29/17 Time of Encounter: 07:20 - Assessment and plan (1) Humerus fracture Current Visit: Yes Status: Acute Assessment and plan: Acute left humerus comminuted fracture of the surgical neck with evidence of glenohumeral dislocation anteriorly - secondary to mechanical fall Continue left upper extremity sling, IV Morphine PRN Humerus x-ray - reviewed Left forearm x-ray - reviewed, negative Orthopedic consult - open reduction internal fixation of left proximal humerus, scheduled for today Cardiac telemetry, labs in a.m., monitor closely PT/OT consult Qualifiers: Encounter type: initial encounter Humerus Location: supracondylar fracture without intercondylar fracture Fracture type: closed Fracture morphology: comminuted Fracture alignment: displaced Laterality: left Qualified Code(s ): S42.422A - Displaced comminuted supracondylar fracture without intercondylar fracture of left humerus, initial encounter for closed fracture (2) Patellar fracture Current Visit: Yes Status: Acute Assessment and plan: Acute comminuted right patellar fracture - secondary to mechanical fall Right lower extremity brace Orthopedics consult - surgery for today Qualifiers: Encounter type: initial encounter Fracture type: closed Fracture morphology: comminuted Fracture alignment: nondisplaced Laterality: right Qualified Code(s): S82.044A - Nondisplaced comminuted fracture of right patella , initial encounter for closed fracture (3) COPD (chronic obstructive pulmonary disease) Current Visit: Yes Status: Chronic Assessment and plan: COPD with mild exacerbation - slowly improving Continue DuoNeb breathing treatment, Symbicort, Spiriva Continue O2 via nasal cannula, incentive spirometry Qualifiers: COPD type: emphysema Emphysema type: panlobular Qualified Code(s): J43.1 - Panlobular emphysema (4) CAD (coronary artery disease) Current Visit: Yes Status: Chronic Assessment and plan: Coronary artery disease, stable - h/o non-STEMI due to demand ischemia in April 2016 Continue Aspirin, Zocor Qualifiers: Coronary Disease-Associated Artery/Lesion type: [place] artery [place] vs. transplanted heart: [place] heart Associated angina: without angina Qualified Code(s): I25.10 - Atherosclerotic heart disease of [place] coronary artery without angina pectoris (5) HTN (hypertension) Current Visit: Yes Status: Chronic Assessment and plan: Essential hypertension, controlled, monitor Continue home dose of Toprol-XL, Hyzaar, Norvasc Qualifiers: Hypertension type: essential hypertension Qualified Code(s): I10 - Essential (primary) hypertension (6) DVT prophylaxis Current Visit: Yes Status: Acute Assessment and plan: Continue Heparin subcutaneous - Time Spent With Patient 25 - 35 minutes - Subjective Interval history: Examined this morning. Patient is awake and alert. Not in any distress. Denies chest pain or shortness of breath. Hemodynamically stable. No fever. Patient complains of pain over her left shoulder and right knee. She states it improves slightly with pain medication. Rates it 7 out of 10 at present. Patient also complains of mild cough which is nonproductive. No other acute events or complaints. Admitted for left humerus fracture and right patellar fracture after a fall. Patient denies loss of consciousness or dizziness at the time. Probable mechanical fall. Orthopedics following, surgery scheduled for today. - Constitutional Vitals: Temp Pulse Resp BP Pulse Ox 98.3 F 81 15 117/85 89 01/29/17 07:38 01/29/17 07:38 01/29/17 10:25 01/29/17 07:38 01/29/17 10:25 General appearance: Present: cooperative, A&O X 3, pleasant, no acute distress, obese, answers questions appropriately Exam: Discomfort due to pain - Head Head exam: Present: atraumatic - Eye Eye exam: Present: EOMI - ENT ENT exam: Present: mucous membranes moist - Respiratory Respiratory exam: Present: wheezes (Mild bilateral). Absent: accessory muscle use, chest wall tenderness, rales, rhonchi, tachypnea - Cardiovascular Cardiovascular exam: Present: RRR, +S1, +S2 - GI/Abdominal GI/Abdominal exam: Present: soft (Obese). Absent: distended, firm, guarding, tenderness - Extremities Exam Extremities exam: Present: radial pulses palpable and symmetrical. Absent: calf tenderness, cyanotic, pedal edema Additional comments: Left upper extremity in sling - neurovascularly intact Right lower extremity in brace - neurovascularly intact Internal Medicine: Result - Labs CBC & Chem 7: 01/28/17 03:29 01/29/17 04:13 Labs: BMP 01/29/17 04:13 Sodium 125 L Potassium 3.3 L Chloride 85 L Carbon Dioxide 32 H BUN 9 Creatinine 0.64 Glucose 114 H Calcium 8.6 - ABG Interpretation ABG results: PT/INR, D-dimer PT 11.1 Seconds (9.4-12.1) 01/27/17 04:34 Consult Discharge Plan - Plan Referrals: Dion Whitman MD [Primary Care Provider] -
--- NOTE | 2017-01-29 15:12 | Anesthesia Evaluation PreOp ---
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: Other (Anxiety/Depression miantained on Xanax) Other Medical History: GERD (maintained on Prilosec) Anesthesia History: No Prior Anesthetic Complications, Past Anesthesia (Hyster, benign breast tumor removal) Alcohol Use: none Drug use: none Medications and Allergies ALPRAZolam [Xanax 0.25 MG Tablet] 0.25 - 0.5 mg PO BID PRN 08/09/15 [History] Albuterol Sulfate [Albuterol Inhaler] 2 puff IH Q4H PRN 08/09/15 [History] Ipratropium/Albuterol Neb [Duoneb] 3 ml IH QID PRN 08/12/15 [History] Losartan/Hydrochlorothiazide [Hyzaar 100-25 Tablet] 1 tab PO DAILY 08/12/15 [ History] Omeprazole [PriLOSEC] 20 mg PO DAILY 08/12/15 [History] Theophylline Anhydrous [Theophylline] 200 mg PO DAILY 08/12/15 [History] Torsemide [Demadex] 10 - 20 mg PO DAILY PRN 03/30/16 [History] Aspirin 81 mg PO DAILY tab.chew 04/06/16 [Rx] Guaifenesin [Mucinex] 600 mg PO BID PRN 05/18/16 [History] Tiotropium [Spiriva] 18 mcg IH DAILY 05/18/16 [History] Amlodipine Besylate 2.5 mg PO DAILY 01/26/17 [History] Atorvastatin [Lipitor] 40 mg PO HS 01/26/17 [History] Cholecalciferol (Vitamin D3) [Vitamin D] 2,000 unit PO DAILY 01/26/17 [History] Fluticasone/Salmeterol [Advair 500-50 Diskus] 1 each IH BID 01/26/17 [History] Metoprolol Succinate 100 mg PO DAILY 01/26/17 [History] Triamcinolone Acet 0.1% CRM [Kenalog] 1 appl TP BID 01/26/17 [History] 3 Allergy/AdvReac Type Severity Reaction Status Date / Time No Known Allergies Allergy Verified 08/09/15 16:58 - Meds/Allergy Pre-op Review Medications Reviewed: Yes Allergies Reviewed: Yes Beta Blockers on Current Med List: Yes Anesthesia Results - Labs 01/28/17 03:29 01/29/17 04:13 Laboratory Results WBC 10.7 K/mcL (4.3-11.1) 01/28/17 03:29 RBC 4.00 M/mcL (3.82-4.97) 01/28/17 03:29 Hgb 12.7 g/dL (11.5-15.4) 01/28/17 03:29 Hct 38.3 % (35.3-44.9) 01/28/17 03:29 MCV 95.8 fL (83.0-100.0) 01/28/17 03:29 MCH 31.8 pg (28.0-33.3) 01/28/17 03:29 MCHC 33.2 g/dL (31.6-35.5) 01/28/17 03:29 RDW 12.9 % (11.5-14.5) 01/28/17 03:29 Plt Count 244 K/mcL (140-400) 01/28/17 03:29 MPV 9.5 fL (9.4-12.4) 01/28/17 03:29 Immature Gran % 0.3 % (0-4) 01/28/17 03:29 Seg Neutrophils % 69.6 % 01/28/17 03:29 Lymphocytes % 21.1 % 01/28/17 03:29 Monocytes % 6.8 % 01/28/17 03:29 Eosinophils % 1.8 % 01/28/17 03:29 Basophils % 0.4 % 01/28/17 03:29 Neutrophils # 7.5 K/mcL (1.6-8.9) 01/28/17 03:29 Lymphocytes # 2.3 K/mcL (0.6-4.6) 01/28/17 03:29 Monocytes # 0.7 K/mcL (0.0-1.3) 01/28/17 03:29 Eosinophils # 0.2 K/mcL (0.0-0.6) 01/28/17 03:29 Basophils # 0.0 K/mcL (0.0-0.2) 01/28/17 03:29 PT 11.1 Seconds (9.4-12.1) 01/27/17 04:34 INR 1.0 01/27/17 04:34 Sodium 125 mEq/L (136-145) L 01/29/17 04:13 Potassium 3.3 mEq/L (3.5-4.5) L 01/29/17 04:13 Chloride 85 mEq/L (98-109) L 01/29/17 04:13 Carbon Dioxide 32 mEq/L (19-29) H 01/29/17 04:13 BUN 9 mg/dL (7-20) 01/29/17 04:13 Creatinine 0.64 mg/dL (0.57-1.11) 01/29/17 04:13 Est GFR ( Amer) > 60 (> 60) 01/29/17 04:13 Est GFR (Non-Af Amer) > 60 (> 60) 01/29/17 04:13 BUN/Creatinine Ratio 14 (6-26) 01/29/17 04:13 Glucose 114 mg/dL (70-99) H 01/29/17 04:13 Calculated Osmolality 260 (280-300) L 01/29/17 04:13 Calcium 8.6 mg/dL (8.6-10.8) 01/29/17 04:13 Phosphorus 4.8 mg/dL (2.3-4.7) H 01/27/17 04:34 Magnesium 1.6 mg/dL (1.6-2.6) 01/27/17 04:34 Impressions Forearm X-Ray 01/26/17 18:03 IMPRESSION: Left humerus: Comminuted fracture of the surgical neck, with evidence of glenohumeral dislocation anteriorly. Left forearm: Limited negative. D/ / Saeid Gotti MD / Saeid Gotti MD Interpreting Provider: Saeid Gotti MD Humerus X-Ray 01/26/17 18:03 IMPRESSION: Left humerus: Comminuted fracture of the surgical neck, with evidence of glenohumeral dislocation anteriorly. Left forearm: Limited negative. D/ / Saeid Gotti MD / Saeid Gotti MD Interpreting Provider: Saeid Gotti MD Knee X-Ray 01/26/17 18:03 IMPRESSION: Comminuted patellar fracture. D/ / Saeid Gotti MD / Saeid Gotti MD Interpreting Provider: Saeid Gotti MD - Imaging EKG: image reviewed Anesthesia Exam Vital Signs Temp Pulse Resp BP Pulse Ox 01/29/17 10:25 15 89 01/29/17 07:38 98.3 F 81 15 117/85 92 01/29/17 03:48 19 96 01/29/17 00:02 97.7 F 81 18 147/77 97 01/28/17 22:29 21 90 01/28/17 20:28 98.1 F 93 19 141/76 98 01/28/17 16:04 98.6 F 88 18 118/79 88 Intake and Output 01/28/17 01/29/17 01/29/17 23:59 07:59 15:59 Intake Total 440 / 440 Output Total 450 / 450 750 / 750 1000 / 1000 Balance -10 / -10 -750 / -750 -1000 / -1000 Intake: Oral 440 / 440 Output: Catheter 450 / 450 750 / 750 1000 / 1000 Other: Meal Dinner Percent of Meal Consumed 50% Height: 5'5" Weight: 225# BMI = 37.5 NPO (# of Hours): MNoc Pain Scale Used: Numeric (1 - 10) - HEENT Pupil (Motor): Pupils equal, EOMI Mallampati: III Teeth: Normal, Poor dentition Oral Opening: Greater than 3 - 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 LOC: Oriented 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 Motor: Normal RUE, Normal LUE, Normal RLE, Normal LLE, Normal Face 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 Keenan Sykes MD
[2017-01-29] MEDS ORDERED: ROPIVACAINE HCL/PF 0.5% 30 ML VIAL ONE (15:37)
[2017-01-29] MEDS ORDERED: *HR* Midazolam HCl 2 MG/2 ML VIAL ONE (15:54)
[2017-01-29] MEDS ORDERED: *HR* FentaNYL (PF) 100 MCG/2 ML VIAL ONE (15:54)
[2017-01-29] MEDS ORDERED: *HR* Propofol 200 MG/20 ML VIAL IVP ONE (15:56)
[2017-01-29] MEDS ORDERED: Lidocaine -MPF 2% 2 ML VIAL ONE (15:56)
[2017-01-29] MEDS ORDERED: *HR* Rocuronium Bromide 50 MG/5 ML VIAL ONE (15:56)
--- NOTE | 2017-01-29 15:58 | Anesthesia Procedures ---
Date of Encounter: 01/29/17 Time of Encounter: 15:50 Procedures: Anesthesia - Nerve Block Procedure Date: 01/29/17 Time: 15:50 Allergies/Adv Reactions: NKDA Surgical Procedure: L-humerus ORIF & R-patellar ORIF Checklist: Correct Patient Identifier Correct side: Right Blood Thinner: No Monitor Applied: BP, Pulse Oximetry Supplemental Oxygen via Nasal Cannula (L/min): 2 Sedation: Versed (mg): 2 Indication: Post Op Analgesia Pre-op Neuro Deficits: Yes Block Type: Femoral Catheter placed: No Sterile Technique: Yes Ultrasound used: No Anatomy identified: Yes Visual spread of Local: No Neuro Stimulation: Yes Nerve Stimulator Range: >0.4 - 0.6 mA Blood on Needle Aspiration: No Smooth Injection of Local: Yes Pain with Injection of Local: No Needle: 22 x 50 mm Stimuplex Local: Ropivacaine (30) Volume (cc): 30mL Number of Attempts: 1 Complications: None/effective block Vitals: See nursing notes Anes Supervising Prov Stmt: Pt seen/evaluated, VSS and tolerated procedure well & without immediate complications. Keenan Sykes MD
[2017-01-29] MEDS ORDERED: *HR* Phenylephrine 10 MG/ML VIAL ONE (16:12)
[2017-01-29] MEDS ORDERED: *HR* Vasopressin 20 UNIT/ML VIAL ONE (16:21)
[2017-01-29] MEDS ORDERED: ceFAZolin 2,000 MG in Water for inj. (sterile) 20 ML IVP ONE (16:43)
--- NOTE | 2017-01-29 16:55 | Physician Discharge Referral ---
ExtendedCare Referral Info Transfer To: F Provider in Charge: Provider in Charge after Transfer: PCP Institutional Level of Care: Skilled - Diagnosis (1) S/P ORIF (open reduction internal fixation) fracture Priority: Primary Status: Acute (2) Patellar fracture Priority: Primary Status: Acute (3) Humerus fracture Priority: Primary Status: Acute Expected Duration of Placement: < 30 days Prognosis: Good Aware of Diagnosis: Patient Aware of Prognosis: Patient - Transfer Medications Prescriptions: OxyCODONE Immed Rel [Roxicodone 5 MG] 5 mg PO Q6HR PRN #28 tablet PRN Reason: Pain ALPRAZolam [Xanax 0.25 MG Tablet] 0.25 - 0.5 mg PO BID PRN #6 tablet PRN Reason: Anxiety Home Medications: Ipratropium/Albuterol Neb [Duoneb] 3 ml IH QID PRN 08/12/15 [History] Omeprazole [PriLOSEC] 20 mg PO DAILY 08/12/15 [History] Theophylline Anhydrous [Theophylline] 200 mg PO DAILY 08/12/15 [History] Aspirin 81 mg PO DAILY tab.chew 04/06/16 [Rx] Atorvastatin [Lipitor] 40 mg PO HS 01/26/17 [History] Fluticasone/Salmeterol [Advair 500-50 Diskus] 1 each IH BID 01/26/17 [History] Metoprolol Succinate 100 mg PO DAILY 01/26/17 [History] ALPRAZolam [Xanax 0.25 MG Tablet] 0.25 - 0.5 mg PO BID PRN #6 tablet 01/29/17 [ Rx] OxyCODONE Immed Rel [Roxicodone 5 MG] 5 mg PO Q6HR PRN #28 tablet 01/29/17 [Rx] Docusate [Colace] 100 mg PO BID capsule 02/01/17 [Rx] Ergocalciferol (VITAMIN D2) [Drisdol (50,000 Unit)] 50,000 unit PO QWEEK capsule 02/01/17 [Rx] GuaiFENesin ER [Mucinex] 1,200 mg PO BID tbbp.12hr 02/01/17 [Rx] Losartan [Cozaar] 100 mg PO DAILY tablet 02/01/17 [Rx] Magnesium Oxide [Mag-Ox] 400 mg PO BID tablet 02/01/17 [Rx] OxyCODONE Immed Rel [Roxicodone 5 MG] 5 mg PO Q4HR PRN tablet 02/01/17 [Rx] Temazepam [Restoril] 15 mg PO HS PRN capsule 02/01/17 [Rx] Thiamine (B-1) [Vitamin B-1] 200 mg PO DAILY tablet 02/01/17 [Rx] Torsemide [Demadex] 20 mg PO DAILY PRN #0 02/01/17 [Rx] Allergies/Adverse Reactions: 3 Allergy/AdvReac Type Severity Reaction Status Date / Time No Known Allergies Allergy Verified 08/09/15 16:58 - Respiratory Orders None Smoking Cessation: Smoking cessation has been advised. For more information, call the [employer] Tobacco Quit Line at 3-232-GUJX-NOW. - Ancillary Orders May use pressure relief devices daily prn, May go on QUE w/family/respon green party w /meds at nurse discretion PRN, May consult with Dentist, Script Supervisor, Knowledge Manager PRN - Mobility Orders Chair, Ambulate - Rehabiliation Orders Rehab Potential: Good Rehab Orders: Evaluation for Physical Therapy, Evaluation for Occupational Therapy Other: Left Shoulder: Opsite dressing, leave intact until first post-operative visit. If dressing becomes >50% saturated, contact office, remove dressing and place appropriate dressing in its place. Do not allow for dressing to get wet. [place]/Zipline dressing in place, plan to remove at POD#14-16. Right Knee: Opsite dressing, leave intact until first post-operative visit. If dressing becomes >50% saturated, contact office, remove dressing and place appropriate dressing in its place. Do not allow for dressing to get wet. [place]/Zipline dressing in place, plan to remove at POD#14-16. PT: Left Shoulder: NWB No Shoulder motion - no lifting/pulling or pushing. Elbow ROM as tolerated Remain in brace for support - ok to remove for elbow exercises. Right Knee: WBAT No knee flexion exercises. Ankle ROM and elevation. Brace: T-scope brace locked in extension, no knee ROM. WBAT. General: Apply ICE/cold therapy wrap 3-6x/day for 20 minutes at a time. Encourage ambulation throughout the day and incentive spirometer 10x/hour. Elevate affected extremities above heart as tolerated. - Treatments Skin tear care topically daily PRN per policy - Diet Orders Regular CERTIFICATION: I certify that the transfer of the above named patient to an Extended Care Facility is necessary for the continuing treatment of the diagnosis listed. The above information is true and accurate reflection of patient's current condition. Confidential - Redisclosure prohibited without a patient's written consent.
--- NOTE | 2017-01-29 17:13 | Electrocardiograph Report ---
[place] [id number] Test Date: 2017-01-28 Pat Name: Debbie Cook Department: 114 Room: [facility] Gender: F Take Away Attendant: [id number] : 1950 Requested By: Jarret Pratt Order Number: [id number] Reading MD: Jennifer Bain Measurements Intervals [place] Rate: 72 P: 56 AR: 168 QRS: 33 QRSD: 90 T: 56 QT: 389 QTc: 413 Interpretive Statements SINUS RHYTHM LOW QRS VOLTAGE IN PRECORDIAL LEADS Electronically Signed On 01-29-2017 17:11:37 EDT by Jennifer Bain
[2017-01-29] MEDS ORDERED: Dexamethasone 4 MG/ML VIAL ONE (17:41)
[2017-01-29] MEDS ORDERED: Neostigmine Methylsulfate 3 MG/3 ML SYRINGE ONE (17:45)
--- NOTE | 2017-01-29 17:50 | Orthopedic Operative Note ---
Date of procedure: 01/29/17 Pre-op diagnosis: Fracture dislocation comminuted displaced left proximal humerus Post-op diagnosis: same (Displaced comminuted fracture right patella, left rotator cuff tear left glenoid fracture) Procedure: Procedure: Left open reduction internal fixation Humerus proximal humerus, rotator cuff repair, open reduction internal fixation right patella Estimated blood loss: 100 cc shoulder, 100 mL knee Hardware: Left shoulder Synthes 3-hole proximal humeral locking plate, 1 3.5 cortical screws, 8 3.5 Locking screws Procedural Notes: Shoulder: Patient with a comminuted fracture dislocation of left proximal humerus. Patient with rotator cuff tear associated with this injury as well as a glenoid fracture. Patella, displaced Operative procedure: The patient was brought to the operating room and placed on the operating room table. After general anesthesia was administered the left operative arm was prepped and draped in the sterile surgical fashion as well as the right lower extremity. The patient received IV antibiotics prior to skin incision. Surgery began with the shoulder first left side. A standard extended deltopectoral approach was made to the humerus, the incision is made to the skin and subcutaneous tissue. Hemostasis was obtained with Bovie cautery. Using careful blunt dissection the deltopectoral interval was developed, fluoroscopy confirmed a fracture dislocation. Attempted closed reduction was unsuccessful. Patient had a large tear in the rotator cuff with a displacement of the greater tuberosity posteriorly. The greater tuberosity was retrieved and tagged with a #2 FiberWire suture. Through the opening in the rotator cuff the humeral head was reduced. Prior to this the patient was noted to have anterior inferior glenoid fracture. The fracture fragment was small and was loose and was removed. The humeral head was reduced with fluoroscopic assistance the humeral head was reduced the shaft as well as the greater tuberosity was reduced. There is slight over reduction of the greater tuberosity and x-ray provisionally looked well reduced. This was all fixed under 1 Synthes 3-hole proximal humeral locking plate plate was fixed in compression initially distally in the shaft fixation was augmented proximally with 6 3.5 locking screws. Fixation was completed on the shaft with 2, 3.5 cortical screws. The fracture reduction moved as one unit and was stable. The rotator cuff was repaired with interrupted oztdqw-vt-czwvd #2 FiberWire suture in a caxg-gr-phab fashion. There was no opening through the rotator cuff into the humeral humeral joint. The wound was irrigated the deltopectoral closed with a running #1 PDS suture case tissues irrigated and closed deep with 0 PDS suture superficially with 0 PDS suture was closed with skin jori patient was sterile dressing. Attention was then turned to the right patella fixation. The incision of the right knee was made through the skin and subcutaneous tissue. The fracture site was identified, fracture hematoma was evacuated. Patient had comminuted fracture of the patella. The 2 large fracture fragments were reduced. Palpation of the reduction found to be acceptable through the tears in the retinaculum. 2 drill holes were placed from superior to inferior longitudinally extra-articular through each drill hole was passed a looped #5 FiberWire suture and 1 and of the same #5 FiberWire suture the loops FiberWire suture #5 were fixed in a locking stitch fashion. The single Stram was fixed as a wrttqb-bo-zunaz. Reduction was found to be stable and well reduced outpatient joint revealed no loose bodies. Was irrigated retinaculum was closed with interrupted heukbe-gm-vtmae #2 FiberWire suture. The subcutaneous tissues irrigated and closed deep with #1 PDS suture superficially with 0 PDS suture and skin was closed with skin jori. The PA closed the shoulder as well as the knee. Patient was placed in a sterile dressing postoperative brace for the shoulder and the knee. The patient was then extubated and transferred to the recovery room in stable condition. Anesthesia: GETA Surgeon: Ganesh Mora Condition: stable Disposition: PACU
[2017-01-29] MEDS ORDERED: Ipratropium/Albuterol Neb 3 ML ONE (18:41)
[2017-01-29] MEDS ORDERED: Ipratropium/Albuterol Neb 3 ML IH ONE (18:44)
[2017-01-29] MEDS ORDERED: cloNIDine HCl 0.1 MG TABLET PO ONE (18:44)
[2017-01-29] MEDS ORDERED: Ketorolac 30 MG/ML VIAL IVP ONE (18:45)
[2017-01-29] MEDS ORDERED: Gabapentin 300 MG CAPSULE PO STA (18:45)
[2017-01-29] MEDS ORDERED: *HR* HYDROmorphone (PF) 1 MG/ML SYRINGE ONE (18:52)
[2017-01-29] MEDS: *HR* HYDROmorphone (PF) 1 MG/ML SYRINGE IVP PRN ×2 (18:53→19:03)
[2017-01-29] MEDS ORDERED: Ringers Solution, Lactated 1,000 ML ONE (19:12)
--- NOTE | 2017-01-29 20:10 | Anesthesia Evaluation Post Op ---
Date of Encounter: 01/29/17 Time of Encounter: 20:09 - Vital Signs Vital Signs: Vital Signs/O2 Sat, Most Current Temp Pulse Resp BP Pulse Ox 98.7 F 102 16 137/82 92 01/29/17 19:37 01/29/17 19:57 01/29/17 19:57 01/29/17 19:57 01/29/17 19:57 - Lungs Lungs: Clear Ascult./Percussion - Airway Airway: Non-obstructed - Cardiovascular Regular Rate - Mental Status Mental Status: Asleep with brisk response to light stimulation - Pain Pain Scale: 3 Pain Scale used: Numeric (1 - 10) - Nausea Vomiting Nausea Vomiting: Not Present - Hydration Hydration: NPO, Has not voided - Discharge PostOp Status: Transfer Patient to floor
[2017-01-29] MEDS ORDERED: Temazepam 15 MG CAPSULE PO PRN (21:29)
[2017-01-29] MEDS ORDERED: Sennosides 8.6 MG TABLET PO PRN (21:29)
[2017-01-29] MEDS ORDERED: Ondansetron 4 MG/2 ML VIAL IVP PRN (21:29)
[2017-01-29] MEDS ORDERED: MOM Conc 10 ML UD.LIQ PO PRN (21:29)
[2017-01-29] MEDS ORDERED: ALPRAZolam 1 MG TABLET PO PRN (21:29)
[2017-01-29] MEDS ORDERED: Naloxone 0.4 MG/ML INJ IVP PRN ×2 (21:29)
[2017-01-29] MEDS ORDERED: Albuterol 2.5 MG/3 ML NEBULIZER IH PRN (21:29)
[2017-01-29] MEDS: 0.9 % Sodium Chloride 1,000 ML IVC SCH (23:05)
[2017-01-29] MEDS: ceFAZolin 2,000 MG in D5% in Water 100 ML IVPB SCH (23:41)
[2017-01-30] MEDS: *HR* Morphine 2 MG/ML SYRINGE IVP PRN ×5 (00:11→22:01)
[2017-01-30] MEDS: Ipratropium/Albuterol Neb 3 ML IH SCH ×4 (04:29→21:52)
[2017-01-30] MEDS: *HR* Heparin 5,000 UNIT/ML VIAL SQ SCH ×3 (05:17→20:31)
[2017-01-30 05:47] LABS: Hematocrit 34.8 % (35.3-44.9); Hemoglobin 12.2 g/dL (11.5-15.4)
--- NOTE | 2017-01-30 06:36 | Orthopedics Progress Note ---
Date of Encounter: 01/30/17 Time of Encounter: 06:35 Subjective Interval history: Patient was seen this morning doing well without complaints. Afebrile vital signs stable. Operative extremity: Neurovascularly intact Dressing clean dry and intact Calves nontender Assessment and plan: Continue with postoperative care Hematocrit 34 Objective Vital signs: Vital Signs Temp Pulse Resp BP Pulse Ox 01/30/17 06:23 98.0 F 97 19 99/68 91 01/30/17 04:30 16 90 01/30/17 00:15 97.6 F 101 16 121/83 01/29/17 23:15 98.1 F 100 15 122/88 01/29/17 22:15 98.2 F 96 16 128/87 96 01/29/17 22:06 14 94 01/29/17 21:45 97.7 F 97 14 129/87 96 01/29/17 21:29 96 01/29/17 21:15 97.7 F 98 16 132/95 96 01/29/17 20:41 94 01/29/17 20:27 99 14 135/91 94 01/29/17 20:17 98 14 137/86 94 01/29/17 20:07 98.0 F 98 16 136/87 95 01/29/17 20:01 18 93 01/29/17 19:57 102 16 137/82 92 01/29/17 19:47 105 16 154/88 91 01/29/17 19:37 98.7 F 103 17 148/89 92 01/29/17 19:27 105 18 159/95 91 01/29/17 19:17 105 18 159/93 90 01/29/17 19:07 98.6 F 102 16 149/91 93 01/29/17 18:57 106 16 157/85 94 01/29/17 18:47 99.5 F 105 16 170/93 98 01/29/17 18:37 104 16 158/95 88 01/29/17 18:27 105 14 154/104 90 01/29/17 18:17 108 16 158/90 88 01/29/17 18:07 100.7 F H 102 16 150/85 93 01/29/17 10:25 15 89 01/29/17 07:38 98.3 F 81 15 117/85 92 Intake and Output 01/29/17 01/29/17 01/30/17 15:59 23:59 07:59 Intake Total 500 / 500 250 / 250 Output Total 1000 / 1000 525 / 525 1200 / 1200 Balance -1000 / -1000 -25 / -25 -950 / -950 Intake: Oral 500 / 500 250 / 250 Output: Estimated Blood Loss 200 / 200 Urine Amount (Catheter) 325 / 325 Catheter 1000 / 1000 1200 / 1200 Other: Stool Size Smear Stool Color Brown - Labs CBC & BMP: 01/30/17 04:29 01/29/17 04:13 Labs: Abnormal lab results Hct 34.8 % (35.3-44.9) L 01/30/17 04:29 Sodium 125 mEq/L (136-145) L 01/29/17 04:13 Potassium 3.3 mEq/L (3.5-4.5) L 01/29/17 04:13 Chloride 85 mEq/L (98-109) L 01/29/17 04:13 Carbon Dioxide 32 mEq/L (19-29) H 01/29/17 04:13 Glucose 114 mg/dL (70-99) H 01/29/17 04:13 Calculated Osmolality 260 (280-300) L 01/29/17 04:13 Phosphorus 4.8 mg/dL (2.3-4.7) H 01/27/17 04:34 - VTE Documentation of Mechanical Device: Venous foot pump, device Consult Discharge Plan - Plan Referrals: Dion Whitman MD [Primary Care Provider] - Prescriptions: ALPRAZolam [Xanax 0.25 MG Tablet] 0.25 - 0.5 mg PO BID PRN #6 tablet PRN Reason: Anxiety OxyCODONE Immed Rel [Roxicodone 5 MG] 5 mg PO Q6HR PRN #28 tablet PRN Reason: Pain
[2017-01-30] MEDS: amLODIPine 5 MG TABLET PO SCH (07:45)
[2017-01-30] MEDS: Losartan/HCTZ 50-12.5 TABLET PO SCH (07:45)
[2017-01-30] MEDS: ceFAZolin 2,000 MG in D5% in Water 100 ML IVPB SCH (07:54)
[2017-01-30] MEDS: Metoprolol XL (24 HR) Succ 50 MG TAB.ER.24H PO SCH (09:06)
[2017-01-30] MEDS: Cholecalciferol (D-3) 1,000 UNIT TABLET PO SCH (09:06)
[2017-01-30] MEDS: Aspirin 81 MG TAB.CHEW PO SCH (09:06)
[2017-01-30 09:46] LABS: BUN/Creatinine Ratio 19 (6-26); Blood Urea Nitrogen 14 mg/dL (7-20); Carbon Dioxide 30 mEq/L (19-29); Chloride 87 mEq/L (98-109); Glucose 199 mg/dL (70-99); Osmolality,Calculated 270 (280-300); Potassium 3.8 mEq/L (3.5-4.5); Sodium 127 mEq/L (136-145); eGFR For African Americans > 60 (> 60); eGFR For Non-African Americans > 60 (> 60)
[2017-01-30] MEDS: *HR* OxyCODONE Immed Rel 5 MG TABLET PO PRN ×3 (10:37→19:23)
[2017-01-30] MEDS: Budesonide/Formoterol 160/4.5 MDI IH SCH ×2 (10:45→21:52)
[2017-01-30] MEDS: Tiotropium 18 MCG inhalation IH SCH (10:45)
--- NOTE | 2017-01-30 15:08 | Event Note ---
Date of Encounter: 01/30/17 Time of Encounter: 15:07 PCR - Left Proximal humerus ORIF, Right Patellar ORIF 01/29 POD#.1 Patient seen at bedside. Pain control: Adequate Participating in PT. All questions and concerns addressed. Educated on use of incentive spirometer, ambulation, and hydration. Patient educated on post-operative restrictions and care. Addressed: NWB to LUE, WBAT in brace at all times to RLE. Slingshot to LUE. D/C plan: ECF, continuity placed
--- NOTE | 2017-01-30 16:26 | Internal Med Progress Note ---
Date of Encounter: 01/30/17 Time of Encounter: 09:20 - Assessment and plan (1) Humerus fracture Current Visit: Yes Status: Acute Assessment and plan: Acute left humerus comminuted fracture of the surgical neck with evidence of glenohumeral dislocation anteriorly - secondary to mechanical fall S/p Left ORIF proximal humerus and rotator cuff repair, ORIF right patella - postop day #1 Continue left upper extremity sling and right lower extremity brace, IV Morphine PRN, Heparin SC for DVT prophylaxis Humerus x-ray - reviewed Left forearm x-ray - reviewed, negative Orthopedic consult - Dr. Mora following Cardiac telemetry, labs in a.m., monitor closely PT/OT consult, anticipate discharge to ECF Qualifiers: Encounter type: initial encounter Humerus Location: supracondylar fracture without intercondylar fracture Fracture type: closed Fracture morphology: comminuted Fracture alignment: displaced Laterality: left Qualified Code(s ): S42.422A - Displaced comminuted supracondylar fracture without intercondylar fracture of left humerus, initial encounter for closed fracture (2) Patellar fracture Current Visit: Yes Status: Acute Assessment and plan: Acute comminuted right patellar fracture - secondary to mechanical fall S/p ORIF right patella - postop day #1 Continue Right lower extremity brace, plan as above Orthopedics consult - Dr. Mora following Qualifiers: Encounter type: initial encounter Fracture type: closed Fracture morphology: comminuted Fracture alignment: nondisplaced Laterality: right Qualified Code(s): S82.044A - Nondisplaced comminuted fracture of right patella , initial encounter for closed fracture (3) COPD (chronic obstructive pulmonary disease) Current Visit: Yes Status: Chronic Assessment and plan: COPD with mild exacerbation - cough, wheezing and shortness of breath now improved Continue DuoNeb breathing treatment, Symbicort, Spiriva Continue O2 via nasal cannula, continue incentive spirometry Qualifiers: COPD type: emphysema Emphysema type: panlobular Qualified Code(s): J43.1 - Panlobular emphysema (4) CAD (coronary artery disease) Current Visit: Yes Status: Chronic Assessment and plan: Coronary artery disease, stable - h/o non-STEMI due to demand ischemia in April 2016 Continue Aspirin, Zocor Qualifiers: Coronary Disease-Associated Artery/Lesion type: [place] artery [place] vs. transplanted heart: [place] heart Associated angina: without angina Qualified Code(s): I25.10 - Atherosclerotic heart disease of [place] coronary artery without angina pectoris (5) HTN (hypertension) Current Visit: Yes Status: Chronic Assessment and plan: Essential hypertension, controlled, monitor Continue home dose of Toprol-XL, Hyzaar, Norvasc Qualifiers: Hypertension type: essential hypertension Qualified Code(s): I10 - Essential (primary) hypertension (6) DVT prophylaxis Current Visit: Yes Status: Acute Assessment and plan: Continue Heparin subcutaneous - Time Spent With Patient 25 - 35 minutes - Subjective Interval history: Examined this morning. Patient is awake and alert. Not in any distress. Denies chest pain or shortness of breath. Hemodynamically stable. No fever. POD#1. Doing well postoperatively. Complains of pain over her left shoulder and right knee surgical sites. States it improves with pain medication. Rates it 5/10 at present. No other acute events or complaints. Admitted for left humerus fracture and right patellar fracture after a fall. Patient denies loss of consciousness or dizziness at the time. Probable mechanical fall. Orthopedics following. - Constitutional Vitals: Temp Pulse Resp BP Pulse Ox 98.7 F 104 15 133/72 92 01/30/17 16:03 01/30/17 16:03 01/30/17 16:03 01/30/17 16:03 01/30/17 16:03 General appearance: Present: cooperative, A&O X 3, morbidly obese, pleasant, no acute distress, answers questions appropriately - Head Head exam: Present: atraumatic - Eye Eye exam: Present: EOMI - ENT ENT exam: Present: mucous membranes moist - Respiratory Respiratory exam: Present: wheezes (Mild bilateral basilar). Absent: accessory muscle use, chest wall tenderness, rales, rhonchi, tachypnea - Cardiovascular Cardiovascular exam: Present: RRR, +S1, +S2 - GI/Abdominal GI/Abdominal exam: Present: soft (Obese). Absent: distended, firm, guarding, tenderness - Extremities Exam Extremities exam: Present: radial pulses palpable and symmetrical. Absent: calf tenderness, cyanotic, pedal edema Additional comments: Left upper extremity in sling - neurovascularly intact Right lower extremity in brace - neurovascularly intact - Neurological Exam Neurological exam: Present: alert, oriented X3, no focal deficits. Absent: facial droop, speech deficit Internal Medicine: Result - Labs CBC & Chem 7: 01/30/17 04:29 01/30/17 09:12 Labs: Short CBC 01/30/17 Range/Units 04:29 Hgb 12.2 (11.5-15.4) g/dL Hct 34.8 L (35.3-44.9) % BMP 01/30/17 09:12 Sodium 127 L Potassium 3.8 Chloride 87 L Carbon Dioxide 30 H BUN 14 Creatinine 0.72 Glucose 199 H Calcium 9.0 - ABG Interpretation ABG results: PT/INR, D-dimer PT 11.1 Seconds (9.4-12.1) 01/27/17 04:34 - Impressions Impressions Shoulder X-Ray 01/29/17 00:01 IMPRESSION: 1. Status post ORIF of the left humerus. No immediate hardware complication. Near-anatomic alignment is seen. 2. Irregularity of the inferior glenoid is identified, not optimally visualized on today's study. Underlying fracture is suspected. D/ / 01/29/2017 19:01:48 Alisa Gates MD / cynthia Interpreting Provider: Alisa Gates MD Knee X-Ray 01/29/17 14:59 IMPRESSION: 1. Status post ORIF comminuted patellar fracture with near anatomic alignment. D/ / Tian Frias MD / Tian Frias MD Interpreting Provider: Tian Frias MD Fluoroscopy 01/29/17 16:22 IMPRESSION: Intraprocedural fluoroscopic spot images as above. See separate procedure report for more information. D/ / Charles Hughes MD / Charles Hughes MD Interpreting Provider: Charles Hughes MD - VTE Documentation of Mechanical Device: Venous foot pump, device Consult Discharge Plan - Plan Referrals: Dion Whitman MD [Primary Care Provider] - 06/21/17 1:15 pm Ganesh Mora MD [Partnered Physician] - 03/14/17 3:40 pm Jessica Rodriguez PAC [Physician Retail Salesman] - 02/08/17 10:15 am Prescriptions: OxyCODONE Immed Rel [Roxicodone 5 MG] 5 mg PO Q6HR PRN #28 tablet PRN Reason: Pain ALPRAZolam [Xanax 0.25 MG Tablet] 0.25 - 0.5 mg PO BID PRN #6 tablet PRN Reason: Anxiety
[2017-01-30] MEDS: 0.9 % Sodium Chloride 1,000 ML IVC SCH (22:00)
[2017-01-31] MEDS: *HR* OxyCODONE Immed Rel 5 MG TABLET PO PRN ×6 (00:05→23:15)
[2017-01-31] MEDS: *HR* Morphine 2 MG/ML SYRINGE IVP PRN ×5 (02:25→21:47)
[2017-01-31 04:36] LABS: Hematocrit 33.6 % (35.3-44.9); Hemoglobin 11.5 g/dL (11.5-15.4)
[2017-01-31] MEDS: Ipratropium/Albuterol Neb 3 ML IH SCH ×6 (04:44→23:38)
[2017-01-31 04:55] LABS: BUN/Creatinine Ratio 23 (6-26); Blood Urea Nitrogen 16 mg/dL (7-20); Calcium 8.7 mg/dL (8.6-10.8); Carbon Dioxide 33 mEq/L (19-29); Chloride 94 mEq/L (98-109); Glucose 111 mg/dL (70-99); Osmolality,Calculated 280 (280-300); Potassium 3.6 mEq/L (3.5-4.5); eGFR For African Americans > 60 (> 60); eGFR For Non-African Americans > 60 (> 60)
[2017-01-31 05:19] LABS: Sodium 134 mEq/L (136-145)
[2017-01-31] MEDS: *HR* Heparin 5,000 UNIT/ML VIAL SQ SCH ×3 (05:24→23:17)
--- NOTE | 2017-01-31 08:28 | Orthopedics Progress Note ---
Date of Encounter: 01/31/17 Time of Encounter: 08:28 Subjective Interval history: Patient was seen this morning doing well without complaints. Afebrile vital signs stable. Operative extremity: Neurovascularly intact Dressing clean dry and intact Calves nontender Assessment and plan: Continue with postoperative care stable for DC Objective Vital signs: Vital Signs Temp Pulse Resp BP Pulse Ox 01/31/17 06:35 97.6 F 88 18 122/76 96 01/31/17 04:44 14 97 01/30/17 23:42 98.7 F 106 17 124/78 94 01/30/17 21:54 14 97 01/30/17 16:21 16 92 01/30/17 16:03 98.7 F 104 15 133/72 92 01/30/17 10:47 16 94 01/30/17 10:44 98.4 F 99 16 131/82 94 Intake and Output 01/30/17 01/31/17 01/31/17 23:59 07:59 15:59 Intake Total 1220 / 1220 100 / 100 Balance 1220 / 1220 100 / 100 Intake: IV Fluids 1000 / 1000 0.9 % Sodium Chloride 1,000 ML 1000 / 1000 @ 50 mls/hr IVC .Q20H YOLY Rx#: [id number] Oral 220 / 220 100 / 100 Other: Meal Dinner Percent of Meal Consumed 75% # Voids 1 1 1 - Labs CBC & BMP: 01/31/17 03:13 01/31/17 03:13 Labs: Abnormal lab results Hct 33.6 % (35.3-44.9) L 01/31/17 03:13 Sodium 134 mEq/L (136-145) L D 01/31/17 03:13 Chloride 94 mEq/L (98-109) L 01/31/17 03:13 Carbon Dioxide 33 mEq/L (19-29) H 01/31/17 03:13 Glucose 111 mg/dL (70-99) H 01/31/17 03:13 Phosphorus 4.8 mg/dL (2.3-4.7) H 01/27/17 04:34 - VTE Documentation of Mechanical Device: Venous foot pump, device Consult Discharge Plan - Plan Referrals: Dion Whitman MD [Primary Care Provider] - 06/21/17 1:15 pm Ganesh Mora MD [Partnered Physician] - 03/14/17 3:40 pm Jessica Rodriguez, PAC [Physician Recycling Or Rubbish Collector] - 02/08/17 10:15 am Prescriptions: ALPRAZolam [Xanax 0.25 MG Tablet] 0.25 - 0.5 mg PO BID PRN #6 tablet PRN Reason: Anxiety OxyCODONE Immed Rel [Roxicodone 5 MG] 5 mg PO Q6HR PRN #28 tablet PRN Reason: Pain
[2017-01-31] MEDS: Metoprolol XL (24 HR) Succ 50 MG TAB.ER.24H PO SCH (08:36)
[2017-01-31] MEDS: Losartan/HCTZ 50-12.5 TABLET PO SCH (08:36)
[2017-01-31] MEDS: amLODIPine 5 MG TABLET PO SCH (08:37)
[2017-01-31] MEDS: Aspirin 81 MG TAB.CHEW PO SCH (08:37)
[2017-01-31] MEDS: Cholecalciferol (D-3) 1,000 UNIT TABLET PO SCH (08:37)
[2017-01-31] MEDS: Tiotropium 18 MCG inhalation IH SCH (11:01)
[2017-01-31] MEDS: Budesonide/Formoterol 160/4.5 MDI IH SCH ×2 (11:01→20:54)
--- NOTE | 2017-01-31 12:48 | Event Note ---
Date of Encounter: 01/31/17 Time of Encounter: 13:23 PCR - Left Proximal humerus ORIF, Right Patellar ORIF 01/29 POD#2 Patient seen at bedside. Pain control: Adequate Participating in PT. All questions and concerns addressed. Educated on use of incentive spirometer, ambulation, and hydration. Patient educated on post-operative restrictions and care. Addressed: NWB to LUE, WBAT in brace at all times to RLE. Slingshot to LUE. No left shoulder motion. D/C plan: ECF, continuity placed
--- NOTE | 2017-01-31 15:06 | Internal Med Progress Note ---
Date of Encounter: 01/31/17 Time of Encounter: 05:00 - Assessment and plan (1) Hyponatremia Current Visit: Yes Status: Acute Assessment and plan: D/C HCTZ. check BMP next AM (2) Hypomagnesemia Current Visit: Yes Status: Acute Assessment and plan: Replace (3) Acute exacerbation of chronic obstructive airways disease Current Visit: No Status: Acute Assessment and plan: Change Aersol treatment to Q4 H (4) Humerus fracture Current Visit: Yes Status: Acute Qualifiers: Encounter type: initial encounter Humerus Location: supracondylar fracture without intercondylar fracture Fracture type: closed Fracture morphology: comminuted Fracture alignment: displaced Laterality: left Qualified Code(s ): S42.422A - Displaced comminuted supracondylar fracture without intercondylar fracture of left humerus, initial encounter for closed fracture (5) S/P ORIF (open reduction internal fixation) fracture Current Visit: Yes Status: Acute - Time Spent With Patient 25 - 35 minutes - Subjective Interval history: Patient is still continue to have that shortness of breath. Systolic blood pressure borderline - Constitutional Vitals: Temp Pulse Resp BP Pulse Ox 97.9 F 81 18 108/73 93 01/31/17 11:26 01/31/17 11:26 01/31/17 13:50 01/31/17 11:26 01/31/17 13:50 General appearance: Present: cooperative, A&O X 3, morbidly obese, pleasant, no acute distress, answers questions appropriately - Neck Neck exam general surgery: Present: supple, trachea midline. Absent: lymphadenopathy - Respiratory Respiratory exam: Present: decreased breath sounds, wheezes. Absent: accessory muscle use, rales, rhonchi - Cardiovascular Cardiovascular exam: Present: RRR, +S1, +S2. Absent: diastolic murmur, gallop, rubs, systolic murmur - GI/Abdominal GI/Abdominal exam: Present: normal bowel sounds, soft, no peritoneal signs. Absent: distended, tenderness - Extremities Exam Extremities exam: Present: warm. Absent: cyanotic, pedal edema Internal Medicine: Result - Labs CBC & Chem 7: 01/31/17 03:13 01/31/17 03:13 Labs: Short CBC 01/31/17 Range/Units 03:13 Hgb 11.5 (11.5-15.4) g/dL Hct 33.6 L (35.3-44.9) % BMP 01/31/17 03:13 Sodium 134 L D Potassium 3.6 Chloride 94 L Carbon Dioxide 33 H BUN 16 Creatinine 0.71 Glucose 111 H Calcium 8.7 - ABG Interpretation ABG results: PT/INR, D-dimer PT 11.1 Seconds (9.4-12.1) 01/27/17 04:34 - VTE Documentation of Mechanical Device: Venous foot pump, device Consult Discharge Plan - Plan Referrals: Dion Whitman MD [Primary Care Provider] - 06/21/17 1:15 pm Ganesh Mora MD [Partnered Physician] - 03/14/17 3:40 pm Jessica Rodriguez, ZEINAB [Physician Lead Data Architect] - 02/08/17 10:15 am Prescriptions: OxyCODONE Immed Rel [Roxicodone 5 MG] 5 mg PO Q6HR PRN #28 tablet PRN Reason: Pain ALPRAZolam [Xanax 0.25 MG Tablet] 0.25 - 0.5 mg PO BID PRN #6 tablet PRN Reason: Anxiety
[2017-01-31 16:05] LABS: Magnesium 1.4 mg/dL (1.6-2.6)
[2017-01-31] MEDS: Thiamine (B-1) 100 MG TABLET PO SCH (18:47)
[2017-01-31] MEDS ORDERED: Magnesium Sulfate 2 GM in D5% in Water 100 ML IVPB ONE (20:36)
[2017-02-01] MEDS: *HR* OxyCODONE Immed Rel 5 MG TABLET PO PRN ×3 (04:08→13:50)
[2017-02-01] MEDS: Ipratropium/Albuterol Neb 3 ML IH SCH ×4 (04:23→16:30)
[2017-02-01] MEDS: *HR* Heparin 5,000 UNIT/ML VIAL SQ SCH ×2 (05:21→15:51)
[2017-02-01] MEDS: Aspirin 81 MG TAB.CHEW PO SCH (08:09)
[2017-02-01] MEDS: Thiamine (B-1) 100 MG TABLET PO SCH (08:09)
[2017-02-01] MEDS: Metoprolol XL (24 HR) Succ 50 MG TAB.ER.24H PO SCH (08:10)
--- NOTE | 2017-02-01 08:29 | Orthopedics Progress Note ---
Date of Encounter: 02/01/17 Time of Encounter: 08:29 Subjective Interval history: Patient was seen this morning doing well without complaints. Afebrile vital signs stable. Operative extremity: Neurovascularly intact Dressing clean dry and intact Calves nontender Assessment and plan: Continue with postoperative care stable for DC Objective Vital signs: Vital Signs Temp Pulse Resp BP Pulse Ox 02/01/17 06:32 98.5 F 106 18 114/72 93 02/01/17 04:23 18 91 02/01/17 04:05 98.8 F 100 18 129/76 93 01/31/17 23:38 18 93 01/31/17 23:36 98.2 F 103 18 122/77 96 01/31/17 20:54 17 92 01/31/17 18:30 97.9 F 93 18 141/92 101 01/31/17 15:51 98.4 F 103 18 117/76 93 01/31/17 13:50 18 93 01/31/17 11:26 97.9 F 81 18 108/73 97 Intake and Output 01/31/17 02/01/17 02/01/17 23:59 07:59 15:59 Output Total 500 / 500 500 / 500 Balance -500 / -500 -500 / -500 Output: Urine 500 / 500 500 / 500 Other: # Voids 1 - Labs CBC & BMP: 01/31/17 03:13 01/31/17 03:13 Labs: Abnormal lab results Hct 33.6 % (35.3-44.9) L 01/31/17 03:13 Sodium 134 mEq/L (136-145) L D 01/31/17 03:13 Chloride 94 mEq/L (98-109) L 01/31/17 03:13 Carbon Dioxide 33 mEq/L (19-29) H 01/31/17 03:13 Glucose 111 mg/dL (70-99) H 01/31/17 03:13 Magnesium 1.4 mg/dL (1.6-2.6) L 01/31/17 15:48 - VTE Documentation of Mechanical Device: Venous foot pump, device Consult Discharge Plan - Plan Referrals: Dion Whitman MD [Primary Care Provider] - 06/21/17 1:15 pm Ganesh Mora MD [Partnered Physician] - 03/14/17 3:40 pm Jessica Rodriguez, PAC [Physician Digital Solutions Architect] - 02/08/17 10:15 am Prescriptions: ALPRAZolam [Xanax 0.25 MG Tablet] 0.25 - 0.5 mg PO BID PRN #6 tablet PRN Reason: Anxiety OxyCODONE Immed Rel [Roxicodone 5 MG] 5 mg PO Q6HR PRN #28 tablet PRN Reason: Pain
[2017-02-01 09:43] LABS: Basophils # 0.1 K/mcL (0.0-0.2); Basophils % 0.5 %; Eosinophils # 0.4 K/mcL (0.0-0.6); Hematocrit 35.6 % (35.3-44.9); Hemoglobin 11.7 g/dL (11.5-15.4); Immature Granulocytes % 0.4 % (0-4); Lymphocytes % 19.9 %; Mean Corpuscular HGB Conc 32.9 g/dL (31.6-35.5); Mean Corpuscular Hemoglobin 31.6 pg (28.0-33.3); Mean Corpuscular Volume 96.2 fL (83.0-100.0); Mean Platelet Volume 9.3 fL (9.4-12.4); Monocytes # 0.8 K/mcL (0.0-1.3); Monocytes % 7.9 %; Neutrophils # 6.8 K/mcL (1.6-8.9); Platelet Count 360 K/mcL (140-400); Red Cell Distribution Width 13.1 % (11.5-14.5); Segmented Neutrophils % 67.3 %
[2017-02-01 09:53] LABS: BUN/Creatinine Ratio 23 (6-26); Blood Urea Nitrogen 17 mg/dL (7-20); Calcium 8.9 mg/dL (8.6-10.8); Carbon Dioxide 33 mEq/L (19-29); Chloride 91 mEq/L (98-109); Glucose 109 mg/dL (70-99); Magnesium 1.4 mg/dL (1.6-2.6); Osmolality,Calculated 274 (280-300); Phosphorous 3.3 mg/dL (2.3-4.7); Potassium 3.9 mEq/L (3.5-4.5); Sodium 131 mEq/L (136-145); eGFR For African Americans > 60 (> 60); eGFR For Non-African Americans > 60 (> 60)
[2017-02-01] MEDS: Budesonide/Formoterol 160/4.5 MDI IH SCH (11:24)
[2017-02-01] MEDS ORDERED: Magnesium Oxide 400 MG TABLET PO SCH (11:30)
--- NOTE | 2017-02-01 11:35 | Physician Discharge Referral ---
ExtendedCare Referral Info Institutional Level of Care: Skilled - Diagnosis (1) Hyponatremia Priority: Secondary Status: Acute (2) Hypomagnesemia Priority: Secondary Status: Acute (3) Acute exacerbation of chronic obstructive airways disease Priority: Primary Status: Acute (4) Humerus fracture Status: Acute (5) S/P ORIF (open reduction internal fixation) fracture Priority: Primary Status: Acute - Transfer Medications Prescriptions: OxyCODONE Immed Rel [Roxicodone 5 MG] 5 mg PO Q6HR PRN #28 tablet PRN Reason: Pain ALPRAZolam [Xanax 0.25 MG Tablet] 0.25 - 0.5 mg PO BID PRN #6 tablet PRN Reason: Anxiety Home Medications: Ipratropium/Albuterol Neb [Duoneb] 3 ml IH QID PRN 08/12/15 [History] Omeprazole [PriLOSEC] 20 mg PO DAILY 08/12/15 [History] Theophylline Anhydrous [Theophylline] 200 mg PO DAILY 08/12/15 [History] Aspirin 81 mg PO DAILY tab.chew 04/06/16 [Rx] Atorvastatin [Lipitor] 40 mg PO HS 01/26/17 [History] Fluticasone/Salmeterol [Advair 500-50 Diskus] 1 each IH BID 01/26/17 [History] Metoprolol Succinate 100 mg PO DAILY 01/26/17 [History] ALPRAZolam [Xanax 0.25 MG Tablet] 0.25 - 0.5 mg PO BID PRN #6 tablet 01/29/17 [ Rx] OxyCODONE Immed Rel [Roxicodone 5 MG] 5 mg PO Q6HR PRN #28 tablet 01/29/17 [Rx] Docusate [Colace] 100 mg PO BID capsule 02/01/17 [Rx] Ergocalciferol (VITAMIN D2) [Drisdol (50,000 Unit)] 50,000 unit PO QWEEK capsule 02/01/17 [Rx] GuaiFENesin ER [Mucinex] 1,200 mg PO BID tbbp.12hr 02/01/17 [Rx] Losartan [Cozaar] 100 mg PO DAILY tablet 02/01/17 [Rx] Magnesium Oxide [Mag-Ox] 400 mg PO BID tablet 02/01/17 [Rx] OxyCODONE Immed Rel [Roxicodone 5 MG] 5 mg PO Q4HR PRN tablet 02/01/17 [Rx] Temazepam [Restoril] 15 mg PO HS PRN capsule 02/01/17 [Rx] Thiamine (B-1) [Vitamin B-1] 200 mg PO DAILY tablet 02/01/17 [Rx] Torsemide [Demadex] 20 mg PO DAILY PRN #0 02/01/17 [Rx] Allergies/Adverse Reactions: 3 Allergy/AdvReac Type Severity Reaction Status Date / Time No Known Allergies Allergy Verified 08/09/15 16:58 - Respiratory Orders Smoking Cessation: Smoking cessation has been advised. For more information, call the [place] Tobacco Quit Line at 5-193-CVAF-NOW. - Advance Directives Code Status: Full Code - Mobility Orders Ambulate - Rehabiliation Orders Rehab Potential: Good - Diet Orders Regular (Low carb diet) CERTIFICATION: I certify that the transfer of the above named patient to an Extended Care Facility is necessary for the continuing treatment of the diagnosis listed. The above information is true and accurate reflection of patient's current condition. Confidential - Redisclosure prohibited without a patient's written consent.
[2017-02-01 15:21] VITALS: BP 114/71
--- NOTE | 2017-02-01 19:59 | Discharge Summary ---
Date of Encounter: 02/01/17 Time of Encounter: 13:00 - Discharge Diagnosis (1) Hyponatremia Priority: Secondary Status: Acute (2) Hypomagnesemia Priority: Secondary Status: Acute (3) Acute exacerbation of chronic obstructive airways disease Priority: Secondary Status: Acute (4) Humerus fracture Priority: Primary Status: Acute Qualifiers: Encounter type: initial encounter Humerus Location: supracondylar fracture without intercondylar fracture Fracture type: closed Fracture morphology: comminuted Fracture alignment: displaced Laterality: left Qualified Code(s ): S42.422A - Displaced comminuted supracondylar fracture without intercondylar fracture of left humerus, initial encounter for closed fracture (5) S/P ORIF (open reduction internal fixation) fracture Priority: Primary Status: Acute - Discharge Medications Prescriptions: OxyCODONE Immed Rel [Roxicodone 5 MG] 5 mg PO Q6HR PRN #28 tablet PRN Reason: Pain Home Medications: Ipratropium/Albuterol Neb [Duoneb] 3 ml IH QID PRN 08/12/15 [History] Omeprazole [PriLOSEC] 20 mg PO DAILY 08/12/15 [History] Theophylline Anhydrous [Theophylline] 200 mg PO DAILY 08/12/15 [History] Aspirin 81 mg PO DAILY tab.chew 04/06/16 [Rx] Atorvastatin [Lipitor] 40 mg PO HS 01/26/17 [History] Fluticasone/Salmeterol [Advair 500-50 Diskus] 1 each IH BID 01/26/17 [History] Metoprolol Succinate 100 mg PO DAILY 01/26/17 [History] OxyCODONE Immed Rel [Roxicodone 5 MG] 5 mg PO Q6HR PRN #28 tablet 01/29/17 [Rx] ALPRAZolam [Xanax 0.25 MG Tablet] 0.25 mg PO Q8HR PRN 02/01/17 [History] Docusate [Colace] 100 mg PO BID capsule 02/01/17 [Rx] Ergocalciferol (VITAMIN D2) [Drisdol (50,000 Unit)] 50,000 unit PO QWEEK capsule 02/01/17 [Rx] GuaiFENesin ER [Mucinex] 1,200 mg PO BID tbbp.12hr 02/01/17 [Rx] Losartan [Cozaar] 100 mg PO DAILY tablet 02/01/17 [Rx] Magnesium Oxide [Mag-Ox] 400 mg PO BID tablet 02/01/17 [Rx] Temazepam [Restoril] 15 mg PO HS PRN capsule 02/01/17 [Rx] Thiamine (B-1) [Vitamin B-1] 200 mg PO DAILY tablet 02/01/17 [Rx] Torsemide [Demadex] 20 mg PO DAILY PRN #0 02/01/17 [Rx] Allergies/Adverse Reactions: 3 Allergy/AdvReac Type Severity Reaction Status Date / Time No Known Allergies Allergy Verified 08/09/15 16:58 Date of admission: 01/27/17 01:43 Primary care physician: Dion Whitman MD Consults: 01/29/17 13:56 Consult to Occupational Therapy [CONS] Routine Comment: Evaluate, develop and implement POC Reason for Consult: Left humerus fracture, right patellar fracture Consult to Physical Therapy [CONS] Routine Comment: Evaluate, develop and implement POC Reason for Consult: Left humerus fracture, right patellar fracture 01/29/17 21:29 Consult to Occupational Therapy [CONS] Routine Comment: post shoulder surgery Reason for Consult: post shoulder surgery Consult to Physical Therapy [CONS] Routine Comment: post shoulder surgery Reason for Consult: post shoulder surgery RT Post Op Consult [CONS] Routine Discharging clinician: Tashi Betancourt Anticipated date of discharge: 02/01/17 - Patient Status Disposition: Transfer SNF Condition: Good Functional capacity at discharge: uses cane/walker Overall status at discharge: patient is not back to baseline - Discharge Instructions Follow Up With: Dion Whitman MD [Primary Care Provider] - 06/21/17 1:15 pm Ganesh Mora MD [Partnered Physician] - 03/14/17 3:40 pm Jessica Rodriguez PAC [Physician Payable Processor] - 02/08/17 10:15 am - Diet and Activity Activity: as per physical therapy Diet: diabetic diet Hospital course: Ms. Cook is a 66 year old female with a history of COPD/HTN , Patient reported that she was ambulating and tripped over a parking block and fell on her left side injuring her left shoulder and right knee in the process. She experienced excruciating pain in the left arm as well as right knee. Pain was 10 /10 in severity and radiated both proximally and distally, it was a mixture of sharp and achy pain. The pain was worse with movement. She was brought to the [facility] for further evaluation and management. Left upper extremity was in sling and neurovascularly intact,Right lower extremity in brace progressing intact .X-rays show fracture dislocation of left proximal humerus and displaced comminuted fracture of right patella. Orthopedic was consulted. He recommended open reduction internal fixation of left proximal humerus and right patella. Patient had left open reduction internal fixation Humerus proximal humerus, rotator cuff repair, open reduction internal fixation right patella on 01/29/2017. Patient had significant wheezing and shortness of breath. Patient was placed on aerosol treatment. Patient had hyponatremia borderline blood pressure. Hydrochlorothiazide was discontinued. Her sodium went back to normal. Counseling patient about deep breathing. We will schedule aerosol treatment at [facility]. Discussed with ECF physician about holding amlodipine as well as hydrochlorothiazide. Patient had hypomagnesemia which was replaced twice. Patient was given oral supplement. Discharged to ECF in stable condition - Time Spent with Patient Total time spent providing and/or coordinating discharge services: Greater than 30 minutes - Constitutional Vitals: Temp Pulse Resp BP Pulse Ox 98.9 F 93 16 114/71 93 02/01/17 15:20 02/01/17 15:20 02/01/17 16:32 02/01/17 15:20 02/01/17 16:32 General appearance: Present: cooperative, A&O X 3, morbidly obese, pleasant, no acute distress, answers questions appropriately - Head Head exam: Present: atraumatic, normocephalic - Neck Neck exam general surgery: Present: supple, trachea midline. Absent: lymphadenopathy - Respiratory Respiratory exam: Present: decreased breath sounds, wheezes. Absent: accessory muscle use, rales, rhonchi - Cardiovascular Cardiovascular exam: Present: RRR, +S1, +S2. Absent: diastolic murmur, gallop, rubs, systolic murmur - GI/Abdominal GI/Abdominal exam: Present: normal bowel sounds, soft, no peritoneal signs. Absent: distended, tenderness - Neurological Exam Neurological exam: Present: CN II-XII intact, no focal deficits. Absent: pronater drift, facial droop, speech deficit - VTE Documentation of Mechanical Device: Venous foot pump, device
== END 2017-02-01 17:05 | DRG 493 ==
LOC: EMEROO 17:53 → 3NENU 17:53
PROVIDERS: ADMIT Family Medicine; ATTEND Internal Medicine

== ENCOUNTER 2017-02-19 16:05 | Inpatient (IN) ==
[2017-02-19] MEDS ORDERED: 0.9 % Sodium Chloride 1,000 ML IVC ONE (16:07)
--- NOTE | 2017-02-19 16:13 | Emergency Department Note ---
Disposition Clinical Impression: Acute febrile illness, Tachycardia, Adrenal abnormality, COPD (chronic obstructive pulmonary disease), History of recent surgery, Liver lesion, Hypokalemia Disposition: Admitted As Inpatient Referrals: Dion Whitman MD [Primary Care Provider] - Forms: ED Satisfaction Letter General Adult HPI - General Chief complaint: ED Arrhythmia/Palpitations Stated complaint: Palpitations Time Seen by Provider: 02/19/17 16:06 Source: patient Limitations: no limitations - History of Present Illness HPI Narrative: 66-year-old female status post recent knee and shoulder injury with right knee surgery reports emergency department with a history of high heart rate shortness of breath and fever. The patient has known COPD. EMS noted her heart rate to be high and treated her for SVT but the medication was not helpful. Her heart rate stayed high. He patient denies coughing of blood or chest pain. She has not had a significant cough. There is no history of acute leg swelling or pain. She is not known to be diabetic. No trouble moving the arms or legs independently or weakness or numbness in arms or legs apart from pain related. Is no history of new fall or acute back pain. No abdominal pain vomiting diarrhea or urinary problems. There is no history of acute cephalgia or neck stiffness. The patient just noted that she felt weak earlier. EMS was notified and she was taken to the hospital. Pain Scale: 3 - Related Data Home Medications Medication Instructions Recorded Confirmed Ipratropium/Albuterol Neb [Duoneb] 3 ml IH QID PRN 08/12/15 02/19/17 Omeprazole [PriLOSEC] 20 mg PO DAILY 08/12/15 02/19/17 Atorvastatin [Lipitor] 40 mg PO HS 01/26/17 02/19/17 Fluticasone/Salmeterol [Advair 1 each IH BID 01/26/17 02/19/17 500-50 Diskus] Metoprolol Succinate 100 mg PO DAILY 01/26/17 02/19/17 ALPRAZolam [Xanax 0.25 MG Tablet] 0.25 mg PO Q8HR PRN 02/01/17 02/19/17 Previous Rx's Medication Instructions Recorded Aspirin 81 mg PO DAILY tab.chew 04/06/16 OxyCODONE Immed Rel [Roxicodone 5 5 mg PO Q6HR PRN #28 tablet 01/29/17 MG] Docusate [Colace] 100 mg PO BID capsule 02/01/17 Ergocalciferol (VITAMIN D2) 50,000 unit PO QWEEK capsule 02/01/17 [Drisdol (50,000 Unit)] Losartan [Cozaar] 100 mg PO DAILY tablet 02/01/17 Magnesium Oxide [Mag-Ox] 400 mg PO BID tablet 02/01/17 Temazepam [Restoril] 15 mg PO HS PRN capsule 02/01/17 Bumetanide [Bumex] 1.5 mg PO DAILY #45 tablet 02/16/17 Potassium Chloride 10 meq PO DAILY #30 tab.er.prt 02/16/17 Allergies Allergy/AdvReac Type Severity Reaction Status Date / Time No Known Allergies Allergy Verified 08/09/15 16:58 All systems ED: reviewed and negative except as stated. Past Medical History - Past Medical History Medical history: Reports: COPD, coronary artery disease, GERD, hyperlipidemia, hypertension, myocardial infarction Surgical history: Reports: hysterectomy Psychiatric history: Reports: anxiety ASSURANCE ASSOCIATE history: Reports: no ASSURANCE ASSOCIATE history - Social History Smoking Status: Former smoker Smokeless Tobacco Status: No Alcohol use: Reports: none Drug use: Reports: none Physical Exam - General Limitations: no limitations General appearance: alert, in no apparent distress - Head Head exam: atraumatic, normocephalic, normal inspection - Eye Eye exam: Present: normal appearance, PERRL, EOMI - ENT ENT exam: normal exam, normal oropharynx, mucous membranes moist, TM's normal bilaterally, normal external ear exam - Neck Neck exam: Present: normal inspection, full ROM, trachea midline - Chest Chest inspection: Present: symmetric chest wall rise. Absent: tenderness - Respiratory Respiratory exam: Present: wheezes, prolonged expiratory phase. Absent: respiratory distress, accessory muscle use - Cardiovascular Cardiovascular exam: Present: normal rhythm, tachycardia - Abdominal Exam Abdominal exam: Present: soft, Non-Tender, normal bowel sounds. Absent: tenderness, distention, guarding, rebound, rigidity, pulsatile mass - Extremities Exam Extremities exam: Present: normal capillary refill, other (Right lower extremity is in an external type of knee stabilizer. Right knee has a surgical wound which is clean and dry intact, no major swelling or redness are appreciated. The left lower extremity and right upper extremity are warm and well perfused without trauma, left upper extremity is in a sling. All 4 extremities are warm and well perfused with no evidence of acute neurovascular or neuromuscular compromise.). Absent: calf tenderness - Expanded Lower Extremity Exam Neurovascular/Tendon exam: Present: normal capillary refill. Absent: pulse deficit, motor deficit, sensory deficit, extremity cold to touch, pallor - Back Exam Back exam: Present: full ROM. Absent: tenderness, CVA tenderness (R), CVA tenderness (L) - Neurological Exam Neurological exam: Present: alert, oriented X3, CN II-XII intact. Absent: motor sensory deficit - Expanded Neurological Exam Patient oriented to: Present: person, place, time Coma Scale Eye Opening: Spontaneous Coma Scale Motor Response: Obeys Commands Coma Scale Verbal Response: Oriented Coma Scale Total: 15 - Psychiatric Psychiatric exam: Present: normal affect, normal mood - Skin Skin exam: Present: warm, dry, intact, normal color. Absent: rash, cyanosis, diaphoresis, erythema, pallor, mottled Course Vital Signs Temperature 103.2 F H 02/19/17 16:09 Pulse Rate 132 02/19/17 16:09 Respiratory Rate 18 02/19/17 16:09 Blood Pressure 132/69 02/19/17 16:09 O2 Sat by Pulse Oximetry 92 02/19/17 16:09 Temperature 103.2 F H 02/19/17 16:09 Pulse Rate 139 02/19/17 18:29 Respiratory Rate 18 02/19/17 18:29 Blood Pressure 106/63 02/19/17 18:29 O2 Sat by Pulse Oximetry 94 02/19/17 18:29 Oxygen Delivery Oxygen Delivery Oximizer Medical Decision Making - [facility] Narrative Medical decision making narrative: Patient is febrile tachycardic and is post op left shoulder and right knee. The patient's shoulder wound and right knee wound do not appear to be red and infected or fluctuant. Chest x-ray negative, CTA chest reveals no acute pulmonary pathology or PE. Abnormal adrenal and/or liver abnormalities are demonstrated on the CT chest with CT abdomen recommended. The patient has no abdominal tenderness to palpation. She did not there is no history of headache or neck stiffness. No acute neurologic abnormalities are appreciated. The patient was given IV fluids as well as antibiotics in the emergency department blood cultures were sent. Lactate is negative. She is communicative and alert. She has a history of COPD and was given Solu-Medrol and was treated with a DuoNeb. The patient follows commands well does not describe chest pain. EKG sinus tachycardia cardiac enzymes negative. Based on the patient's apparent SIRS/sepsis, I do not be appropriate to admit the patient the hospital. I discussed case with the hospitalist on-call who has accepted the patient to their care. Hydrocortisone IV recommended 100 mg. - Lab Data Lab results reviewed: Yes I reviewed the patient's lab results. Result diagrams: 02/19/17 16:44 02/19/17 16:44 Lab Results 02/19/17 02/19/17 02/19/17 Range/Units 16:35 16:35 16:44 WBC 14.7 H D (4.3-11.1) K/mcL RBC 3.70 L (3.82-4.97) M/mcL Hgb 11.6 (11.5-15.4) g/dL Hct 35.8 (35.3-44.9) % MCV 96.8 (83.0-100.0) fL MCH 31.4 (28.0-33.3) pg MCHC 32.4 (31.6-35.5) g/dL RDW 12.7 (11.5-14.5) % Plt Count 282 (140-400) K/mcL MPV 8.7 L (9.4-12.4) fL Immature Gran % 0.5 (0-4) % Seg Neutrophils % 97.2 % Lymphocytes % 1.7 % Monocytes % 0.5 % Eosinophils % 0.0 % Basophils % 0.1 % Neutrophils # 14.3 H (1.6-8.9) K/mcL Lymphocytes # 0.3 L (0.6-4.6) K/mcL Monocytes # 0.1 (0.0-1.3) K/mcL Eosinophils # 0.0 (0.0-0.6) K/mcL Basophils # 0.0 (0.0-0.2) K/mcL PT (9.4-12.1) Seconds INR APTT (26.0-36.0) Seconds Sodium (136-145) mEq/L Potassium (3.5-4.5) mEq/L Chloride (98-109) mEq/L Carbon Dioxide (19-29) mEq/L BUN (7-20) mg/dL Creatinine (0.57-1.11) mg/dL Est GFR ( Amer) (> 60) Est GFR (Non-Af Amer) (> 60) BUN/Creatinine Ratio (6-26) Glucose (70-99) mg/dL Calculated Osmolality (280-300) Lactic Acid (0.5-2.2) mmol/L Calcium (8.6-10.8) mg/dL Total Bilirubin (0.2-1.2) mg/dL Direct Bilirubin (0.0-0.5) mg/dL Indirect Bilirubin (0.0-1.2) mg/dL AST (5-34) Units/L ALT (0-55) Units/L Alkaline Phosphatase (38-126) Units/L Troponin I (0-0.03) ng/mL C-Reactive Protein (Less than 5) mg/L Serum Total Protein (6.0-8.3) g/dL Albumin (3.5-5.0) g/dL Globulin (2.4-3.5) g/dL Albumin/Globulin Ratio (1.1-2.2) TSH Urine Color Yellow (Yellow) Urine Clarity Clear (Clear) Urine pH 7.5 (5.0-8.0) pH Units Ur Specific [place] 1.018 (1.010-1.025) Urine Protein 30 H (Neg-Trace) mg/dL Urine Glucose (UA) Normal (Normal) mg/dL Urine Ketones Negative (Negative) mg/dL Urine Blood Negative (Negative) Urine Nitrite Negative (Negative) Urine Bilirubin Negative (Negative) Urine Urobilinogen 4.0 H (Normal) mg/dL Ur Leukocyte Esterase Negative (Negative) Urine Microscopic RBC 0-3 (0-3) per hpf Urine Microscopic WBC 0-3 (0-3) per hpf Ur Squamous Epith Cells Many H (None-Few) per lpf Amorphous Sediment Few (Few) Urine Bacteria None Seen (None-Few) per hpf Hyaline Casts None Seen (None-Few) per lpf Ur Culture Indicated? NO (NO) Urine Opiates Screen Positive H (Jwhyfo=061) ng/mL Ur Barbiturates Screen Negative (Nvllcr=977) ng/mL Ur Phencyclidine Scrn Negative (Cutoff=25) ng/mL Ur Amphetamines Screen Negative (Ahzrjb=1978) ng/mL U Benzodiazepines Scrn Positive H (Pflxgi=870) ng/mL Urine Cocaine Screen Negative (Cutoff= 300) ng/mL U Marijuana (THC) Screen Negative (Cutoff = 50) ng/mL 02/19/17 02/19/17 02/19/17 Range/Units 16:44 16:44 16:44 WBC (4.3-11.1) K/mcL RBC (3.82-4.97) M/mcL Hgb (11.5-15.4) g/dL Hct (35.3-44.9) % MCV (83.0-100.0) fL MCH (28.0-33.3) pg MCHC (31.6-35.5) g/dL RDW (11.5-14.5) % Plt Count (140-400) K/mcL MPV (9.4-12.4) fL Immature Gran % (0-4) % Seg Neutrophils % % Lymphocytes % % Monocytes % % Eosinophils % % Basophils % % Neutrophils # (1.6-8.9) K/mcL Lymphocytes # (0.6-4.6) K/mcL Monocytes # (0.0-1.3) K/mcL Eosinophils # (0.0-0.6) K/mcL Basophils # (0.0-0.2) K/mcL PT 15.2 H (9.4-12.1) Seconds INR 1.4 APTT 32.5 (26.0-36.0) Seconds Sodium 132 L (136-145) mEq/L Potassium 3.2 L (3.5-4.5) mEq/L Chloride 95 L (98-109) mEq/L Carbon Dioxide 30 H (19-29) mEq/L BUN 14 (7-20) mg/dL Creatinine 0.79 (0.57-1.11) mg/dL Est GFR ( Amer) > 60 (> 60) Est GFR (Non-Af Amer) > 60 (> 60) BUN/Creatinine Ratio 18 (6-26) Glucose 131 H (70-99) mg/dL Calculated Osmolality 276 L (280-300) Lactic Acid 1.4 (0.5-2.2) mmol/L Calcium 8.7 (8.6-10.8) mg/dL Total Bilirubin 0.8 (0.2-1.2) mg/dL Direct Bilirubin 0.6 H (0.0-0.5) mg/dL Indirect Bilirubin 0.2 (0.0-1.2) mg/dL AST 27 (5-34) Units/L ALT 30 (0-55) Units/L Alkaline Phosphatase 137 H (38-126) Units/L Troponin I (0-0.03) ng/mL C-Reactive Protein 128 H (Less than 5) mg/L Serum Total Protein 6.0 (6.0-8.3) g/dL Albumin 2.7 L (3.5-5.0) g/dL Globulin 3.3 (2.4-3.5) g/dL Albumin/Globulin Ratio 0.8 L (1.1-2.2) TSH Cancelled Urine Color (Yellow) Urine Clarity (Clear) Urine pH (5.0-8.0) pH Units Ur Specific [place] (1.010-1.025) Urine Protein (Neg-Trace) mg/dL Urine Glucose (UA) (Normal) mg/dL Urine Ketones (Negative) mg/dL Urine Blood (Negative) Urine Nitrite (Negative) Urine Bilirubin (Negative) Urine Urobilinogen (Normal) mg/dL Ur Leukocyte Esterase (Negative) Urine Microscopic RBC (0-3) per hpf Urine Microscopic WBC (0-3) per hpf Ur Squamous Epith Cells (None-Few) per lpf Amorphous Sediment (Few) Urine Bacteria (None-Few) per hpf Hyaline Casts (None-Few) per lpf Ur Culture Indicated? (NO) Urine Opiates Screen (Fduhpx=783) ng/mL Ur Barbiturates Screen (Oyfmif=602) ng/mL Ur Phencyclidine Scrn (Cutoff=25) ng/mL Ur Amphetamines Screen (Fislgi=4867) ng/mL U Benzodiazepines Scrn (Toiwgv=326) ng/mL Urine Cocaine Screen (Cutoff= 300) ng/mL U Marijuana (THC) Screen (Cutoff = 50) ng/mL 02/19/17 Range/Units 16:44 WBC (4.3-11.1) K/mcL RBC (3.82-4.97) M/mcL Hgb (11.5-15.4) g/dL Hct (35.3-44.9) % MCV (83.0-100.0) fL MCH (28.0-33.3) pg MCHC (31.6-35.5) g/dL RDW (11.5-14.5) % Plt Count (140-400) K/mcL MPV (9.4-12.4) fL Immature Gran % (0-4) % Seg Neutrophils % % Lymphocytes % % Monocytes % % Eosinophils % % Basophils % % Neutrophils # (1.6-8.9) K/mcL Lymphocytes # (0.6-4.6) K/mcL Monocytes # (0.0-1.3) K/mcL Eosinophils # (0.0-0.6) K/mcL Basophils # (0.0-0.2) K/mcL PT (9.4-12.1) Seconds INR APTT (26.0-36.0) Seconds Sodium (136-145) mEq/L Potassium (3.5-4.5) mEq/L Chloride (98-109) mEq/L Carbon Dioxide (19-29) mEq/L BUN (7-20) mg/dL Creatinine (0.57-1.11) mg/dL Est GFR ( Amer) (> 60) Est GFR (Non-Af Amer) (> 60) BUN/Creatinine Ratio (6-26) Glucose (70-99) mg/dL Calculated Osmolality (280-300) Lactic Acid (0.5-2.2) mmol/L Calcium (8.6-10.8) mg/dL Total Bilirubin (0.2-1.2) mg/dL Direct Bilirubin (0.0-0.5) mg/dL Indirect Bilirubin (0.0-1.2) mg/dL AST (5-34) Units/L ALT (0-55) Units/L Alkaline Phosphatase (38-126) Units/L Troponin I 0.01 (0-0.03) ng/mL C-Reactive Protein (Less than 5) mg/L Serum Total Protein (6.0-8.3) g/dL Albumin (3.5-5.0) g/dL Globulin (2.4-3.5) g/dL Albumin/Globulin Ratio (1.1-2.2) TSH Urine Color (Yellow) Urine Clarity (Clear) Urine pH (5.0-8.0) pH Units Ur Specific [place] (1.010-1.025) Urine Protein (Neg-Trace) mg/dL Urine Glucose (UA) (Normal) mg/dL Urine Ketones (Negative) mg/dL Urine Blood (Negative) Urine Nitrite (Negative) Urine Bilirubin (Negative) Urine Urobilinogen (Normal) mg/dL Ur Leukocyte Esterase (Negative) Urine Microscopic RBC (0-3) per hpf Urine Microscopic WBC (0-3) per hpf Ur Squamous Epith Cells (None-Few) per lpf Amorphous Sediment (Few) Urine Bacteria (None-Few) per hpf Hyaline Casts (None-Few) per lpf Ur Culture Indicated? (NO) Urine Opiates Screen (Acxhvq=702) ng/mL Ur Barbiturates Screen (Jyekih=570) ng/mL Ur Phencyclidine Scrn (Cutoff=25) ng/mL Ur Amphetamines Screen (Xrixxb=5872) ng/mL U Benzodiazepines Scrn (Jrokxd=987) ng/mL Urine Cocaine Screen (Cutoff= 300) ng/mL U Marijuana (THC) Screen (Cutoff = 50) ng/mL - Radiology Data Radiology results reviewed: Yes I reviewed the patient's radiology results.
[2017-02-19] MEDS ORDERED: Ipratropium/Albuterol Neb 3 ML IH ONE (16:19)
[2017-02-19] MEDS ORDERED: methylPREDNISolone 125 MG/2 ML VIAL IVP ONE (16:19)
[2017-02-19] MEDS ORDERED: Piperacillin/Tazobactam 3.375 GM in D5% in Water 50 ML IVPB ONE (16:20)
[2017-02-19] MEDS ORDERED: Vancomycin 1,000 MG in D5% in Water 250 ML IVPB ONE (16:20)
[2017-02-19 16:41] LABS: Bilirubin,Urine Negative (Negative); Blood,Urine Negative (Negative); Clarity,Urine Clear (Clear); Color,Urine Yellow (Yellow); Glucose,Urine (UA) Normal (Normal); Ketones,Urine Negative (Negative); Leukocyte Esterase,Urine Negative (Negative); Nitrite,Urine Negative (Negative); PH,Urine 7.5 pH Units (5.0-8.0); Protein,Urine 30 mg/dL (Neg-Trace); Specific Gravity,Urine 1.018 (1.010-1.025)
[2017-02-19 16:44] LABS: Bacteria,Urine None Seen per hpf (None-Few); Hyaline Casts,Urine None Seen per lpf (None-Few); RBC,Urine 0-3 per hpf (0-3); Squamous Epithelial Cell,Urine Many per lpf (None-Few); WBC,Urine 0-3 per hpf (0-3)
[2017-02-19 16:51] LABS: Basophils % 0.1 %; Hematocrit 35.8 % (35.3-44.9); Hemoglobin 11.6 g/dL (11.5-15.4); Immature Granulocytes % 0.5 % (0-4); Lymphocytes # 0.3 K/mcL (0.6-4.6); Lymphocytes % 1.7 %; Mean Corpuscular HGB Conc 32.4 g/dL (31.6-35.5); Mean Corpuscular Hemoglobin 31.4 pg (28.0-33.3); Mean Corpuscular Volume 96.8 fL (83.0-100.0); Mean Platelet Volume 8.7 fL (9.4-12.4); Monocytes # 0.1 K/mcL (0.0-1.3); Monocytes % 0.5 %; Neutrophils # 14.3 K/mcL (1.6-8.9); Platelet Count 282 K/mcL (140-400); Red Cell Distribution Width 12.7 % (11.5-14.5); Segmented Neutrophils % 97.2 %
[2017-02-19 16:51] LABS: Amphetamine Screen,Urine Negative ng/mL (Cutoff=1000); Barbiturate Screen,Urine Negative ng/mL (Cutoff=200); Benzodiazepines Screen,Urine Positive ng/mL (Cutoff=200); Cannabinoid Screen,Urine Negative ng/mL (Cutoff = 50); Cocaine Screen,Urine Negative ng/mL (Cutoff= 300); Opiate Screen,Urine Positive ng/mL (Cutoff=300); Phencyclidine Screen,Urine Negative ng/mL (Cutoff=25)
[2017-02-19 16:59] LABS: INR 1.4; Prothrombin Time 15.2 Seconds (9.4-12.1)
[2017-02-19 17:01] LABS: Activated Partial Thrombo Time 32.5 Seconds (26.0-36.0)
[2017-02-19] MEDS: 0.9 % Sodium Chloride 1,000 ML IVC SCH ×2 (17:05→20:59)
[2017-02-19 17:07] LABS: Alanine Aminotransferase 30 Units/L (0-55); Albumin 2.7 g/dL (3.5-5.0); Albumin/Globulin Ratio 0.8 (1.1-2.2); Alkaline Phosphatase 137 Units/L (38-126); Aspartate Amino Transferase 27 Units/L (5-34); BUN/Creatinine Ratio 18 (6-26); Bilirubin,Direct 0.6 mg/dL (0.0-0.5); Bilirubin,Indirect 0.2 mg/dL (0.0-1.2); Bilirubin,Total 0.8 mg/dL (0.2-1.2); Blood Urea Nitrogen 14 mg/dL (7-20); C-Reactive Protein 128 mg/L (Less than 5); Calcium 8.7 mg/dL (8.6-10.8); Carbon Dioxide 30 mEq/L (19-29); Chloride 95 mEq/L (98-109); Globulin 3.3 g/dL (2.4-3.5); Glucose 131 mg/dL (70-99); Osmolality,Calculated 276 (280-300); Potassium 3.2 mEq/L (3.5-4.5); Sodium 132 mEq/L (136-145); eGFR For African Americans > 60 (> 60); eGFR For Non-African Americans > 60 (> 60)
[2017-02-19 17:09] LABS: Amorphous Sediment,Urine Few (Few)
[2017-02-19] MEDS ORDERED: Hydrocortisone Sodium Succ 100 MG/2 ML VIAL IVP ONE (18:55)
[2017-02-19 18:58] LABS: Lipase 11 Units/L (8-78)
[2017-02-19] MEDS ORDERED: Acetaminophen 325 MG TABLET PO PRN (20:24)
[2017-02-19] MEDS ORDERED: Naloxone 0.4 MG/ML INJ IVP PRN (20:24)
[2017-02-19] MEDS ORDERED: 0.9 % Sodium Chloride 1,000 ML IVC SCH (20:30)
--- NOTE | 2017-02-19 20:50 | Internal Med History&Physical ---
<Bernice Donaldson - Last Filed: 02/19/17 22:58> Date of Encounter: 02/19/17 Time of Encounter: 20:15 Assessment and Plan (1) Sepsis Current visit: Yes Status: Acute Patient meets sepsis criteria: tachycardia, febrile, elevated WBC Unknown source possible adrenal abscess Chest CTA showed no evidence PE. Cystic lesion on left lobe of liver and mild stranding on left adrenal gland. CXR was normal Plan: IV fluids zosyn vancomycin tylenol metoprolol trend troponins blood cultures pending Will order Abdominal CT 24hrs after chest CT Qualifiers: Sepsis type: sepsis due to unspecified organism Qualified Code(s): A41.9 - Sepsis, unspecified organism (2) Adrenal abnormality Current visit: Yes Status: Acute Chest CTA showed no evidence PE. Cystic lesion on left lobe of liver and mild stranding on left adrenal gland. see plan above (3) Liver lesion Current visit: Yes Status: Acute Chest CTA showed no evidence PE. Cystic lesion on left lobe of liver and mild stranding on left adrenal gland. see plan above (4) Hyponatremia Current visit: No Status: Acute (5) Hypokalemia Current visit: Yes Status: Acute Continue potassium supplementation continue to monitor (6) COPD (chronic obstructive pulmonary disease) Current visit: Yes Status: Chronic History of COPD oxygen saturation 94% supplemental oxgen start hydrocortisone continue duonebs continue advair Qualifiers: COPD type: unspecified COPD Qualified Code(s): J44.9 - Chronic obstructive pulmonary disease, unspecified (7) History of recent surgery Current visit: Yes Status: Acute Patellar and humerus fracture 01/26/2017, surgery by Dr. Mora Not on anticoagulation Reports that she has been active and d/c from rehab on Sunday (8) HTN (hypertension) Current visit: No Status: Chronic history of HTN continue home medications Qualifiers: Hypertension type: essential hypertension Qualified Code(s): I10 - Essential (primary) hypertension (9) Anxiety Current visit: Yes Status: Acute Patient has a history of anxiety and has been anxious today continue home xanax (10) DVT prophylaxis Current visit: Yes Status: Acute heparin SQ Internal Medicine - H&P: HPI Chief complaint: malaise and fatigue Admitted From: Home Plans for Post Hospital Care: Home History of present illness: Ms. Cook is a 66 year old female with a past medical history of COPD, [place] (2015 w/o stents), HTN, HLD, CHF, GERD, recent right knee and left shoulder surgery 01/26/2017. She presented to the hospital by EMS in mild distress complaining of overall malaise and fatigue that had worsened over the day and only came to the hospital at the insistence of her daughters and home health aid. She reported that this morning at 2am she was awakened by chest pain that radiated to her epigastic region. She described it as a burning sensation that nothing made it worse but chewing mint gum made it better. She stated that the pain persisted until noon. She admitted to fever, chills, nausea, shortness of breathe, fatigue, diaphoresis, decreased appetite. She denied cough, wheezing, abdominal pain, diarrhea, vomiting, palpitations, melena, hematemesis, dizziness , leg swelling, sore throat, runny nose. She denied falls, recent sickness, travel, immobilization, history of blood clots. She did fall and fracture her right knee and left shoulder on December and was admitted and had surgery by Dr. Mora. She is not on anticoagulation. Last year in 03/2016 when she was admitted for an [place] she was intubated for 5days due to COPD. She is a current smoker of 4 cigarettes-2ppd. She is a full code. Past Med Surg Social Fam HX - Past Medical History Medical history: COPD, coronary artery disease, GERD, hyperlipidemia, hypertension, myocardial infarction Psychiatric history: anxiety - Past Surgical History Surgical History: hysterectomy - Social History Smoking Status: Current every day smoker (she quit but started smoking again) Smokeless Tobacco Status: No Alcohol use: none Drug use: none - Family History Mother Living Status: Hx Family Cardiac Disorders: Yes Hx Family Cancer: Yes (colon ca) Hx Family Neurologic Disorders: Yes (cva) Hx Family HEENT Disorders: Yes (macular degeneration) Father Adopted: No Family Member Ethnicity: Non- Living Status: Hx Family Cardiac Disorders: Yes Hx Family Respiratory Disorders: No Hx Family Cancer: Yes (colon ca 1979) Hx Family GI Disorders: No Hx Family Endocrine Disorder: No Hx Family Neuromuscular Disorders: No Hx Family Neurologic Disorders: Yes (CVA with left side weakness) Hx Family HEENT Disorders: Yes (macular degeneration) Hx Family Autoimmune Disorders: No Internal Medicine - H&P: Meds Ipratropium/Albuterol Neb [Duoneb] 3 ml IH QID PRN 08/12/15 [History] Omeprazole [PriLOSEC] 20 mg PO DAILY 08/12/15 [History] Aspirin 81 mg PO DAILY tab.chew 04/06/16 [Rx] Atorvastatin [Lipitor] 40 mg PO HS 01/26/17 [History] Fluticasone/Salmeterol [Advair 500-50 Diskus] 1 each IH BID 01/26/17 [History] Metoprolol Succinate 100 mg PO DAILY 01/26/17 [History] OxyCODONE Immed Rel [Roxicodone 5 MG] 5 mg PO Q6HR PRN #28 tablet 01/29/17 [Rx] ALPRAZolam [Xanax 0.25 MG Tablet] 0.25 mg PO Q8HR PRN 02/01/17 [History] Docusate [Colace] 100 mg PO BID capsule 02/01/17 [Rx] Ergocalciferol (VITAMIN D2) [Drisdol (50,000 Unit)] 50,000 unit PO QWEEK capsule 02/01/17 [Rx] Losartan [Cozaar] 100 mg PO DAILY tablet 02/01/17 [Rx] Magnesium Oxide [Mag-Ox] 400 mg PO BID tablet 02/01/17 [Rx] Temazepam [Restoril] 15 mg PO HS PRN capsule 02/01/17 [Rx] Bumetanide [Bumex] 1.5 mg PO DAILY #45 tablet 02/16/17 [Rx] Potassium Chloride 10 meq PO DAILY #30 tab.er.prt 02/16/17 [Rx] 3 Allergy/AdvReac Type Severity Reaction Status Date / Time No Known Allergies Allergy Verified 08/09/15 16:58 All Systems PM: A 10-system review of systems was performed and is negative for pertinent findings except as documented above in the HPI. - Constitutional Constitutional: chills, fatigue, fever(s), no falls - EENT Eyes: no change in vision, no loss of vision Nose, mouth and throat: no nasal congestion, no nasal discharge, no sore throat - Cardiovascular Cardiovascular ROS IM: chest pain, no diaphoresis, no lightheadedness - Respiratory Respiratory: dyspnea, no cough, no hemoptysis, no wheezing - Gastrointestinal Gastrointestinal: nausea, no abdominal pain, no diarrhea, no heartburn, no hematemesis, no melena, no vomiting - Genitourinary Genitourinary: no difficulty urinating, no dysuria, no hematuria - Musculoskeletal Musculoskeletal ROS IM: no joint swelling, no muscle cramps - Integumentary Integumentary IM: no erythema, no skin ulcer - Constitutional Vitals: Temp Pulse Resp BP Pulse Ox 103.2 F H 139 12 106/63 94 02/19/17 16:09 02/19/17 18:29 02/19/17 20:03 02/19/17 20:03 02/19/17 18:29 General appearance: Present: mild distress, A&O X 3, obese, answers questions appropriately - Head Head exam: Present: atraumatic, normal inspection - Eye Eye exam: Present: conjuntiva pink - Respiratory Respiratory exam: Present: decreased breath sounds, wheezes. Absent: rhonchi - Cardiovascular Cardiovascular exam: Present: RRR, +S1, +S2, tachycardia. Absent: clicks - GI/Abdominal GI/Abdominal exam: Present: normal bowel sounds, soft. Absent: distended, firm , guarding, tenderness - Extremities Exam Extremities exam: Absent: calf tenderness, joint swelling - Skin Skin exam: Present: dry, intact. Absent: rash Internal Med - H&P Results - Labs CBC & Chem 7: 02/19/17 16:44 02/19/17 16:44 <Jessie Hightower - Last Filed: 02/20/17 06:28> Date of Encounter: 02/20/17 Internal Medicine - H&P: HPI History of present illness: Ms. Cook is a 66 year old female All Systems PM: A 10-system review of systems was performed and is negative for pertinent findings except as documented above in the HPI. - Constitutional Vitals: Temp Pulse Resp BP Pulse Ox 97.2 F L 93 20 96/60 93 02/20/17 03:00 02/20/17 03:56 02/20/17 03:00 02/20/17 03:00 02/20/17 03:00 Internal Med - H&P Results - Labs CBC & Chem 7: 02/20/17 02:41 02/20/17 02:41 Labs: Short CBC 02/20/17 Range/Units 02:41 WBC 27.0 H D (4.3-11.1) K/mcL Hgb 10.7 L (11.5-15.4) g/dL Hct 32.6 L (35.3-44.9) % Plt Count 264 (140-400) K/mcL Neutrophils # 25.8 H (1.6-8.9) K/mcL BMP 02/20/17 02:41 Sodium 134 L Potassium 3.7 Chloride 98 Carbon Dioxide 30 H BUN 13 Creatinine 0.76 Glucose 191 H Calcium 8.4 L Cardiac Enzymes 02/19/17 02/20/17 Range/Units 20:50 02:41 Troponin I 0.02 0.02 (0-0.03) ng/mL Liver Function 02/20/17 Range/Units 02:41 Total Bilirubin 0.6 (0.2-1.2) mg/dL AST 32 (5-34) Units/L ALT 38 (0-55) Units/L Alkaline Phosphatase 102 (38-126) Units/L Albumin 2.3 L (3.5-5.0) g/dL - Attending Attestation I have seen and examined the patient independently. I have discussed with resident physician Dr. Donaldson regarding the management plan. Agree with the documentation.
[2017-02-19] MEDS ORDERED: Vancomycin 1,500 MG in D5% in Water 250 ML IVPB SCH (21:00)
[2017-02-19] MEDS: Magnesium Oxide 400 MG TABLET PO SCH (21:01)
[2017-02-19] MEDS: Budesonide/Formoterol 160/4.5 MDI IH SCH (21:54)
[2017-02-19] MEDS: Vancomycin 1,000 MG in D5% in Water 250 ML IVPB SCH ×2 (23:01→23:02)
[2017-02-19] MEDS: Piperacillin/Tazobactam 3.375 GM in D5% in Water 50 ML IVPB SCH (23:03)
[2017-02-20 02:49] LABS: Basophils % 0.1 %; Red Cell Distribution Width 12.9 % (11.5-14.5)
[2017-02-20 02:50] LABS: Eosinophils % 0.1 %; Hematocrit 32.6 % (35.3-44.9); Hemoglobin 10.7 g/dL (11.5-15.4); Immature Granulocytes % 0.7 % (0-4); Lymphocytes # 0.6 K/mcL (0.6-4.6); Lymphocytes % 2.1 %; Mean Corpuscular HGB Conc 32.8 g/dL (31.6-35.5); Mean Corpuscular Hemoglobin 31.5 pg (28.0-33.3); Mean Corpuscular Volume 95.9 fL (83.0-100.0); Monocytes # 0.4 K/mcL (0.0-1.3); Monocytes % 1.6 %; Platelet Count 264 K/mcL (140-400); Segmented Neutrophils % 95.4 %
[2017-02-20 02:53] LABS: Neutrophils # 25.8 K/mcL (1.6-8.9)
[2017-02-20 02:54] LABS: INR 1.7
[2017-02-20 02:56] LABS: Activated Partial Thrombo Time 33.9 Seconds (26.0-36.0)
[2017-02-20 03:03] LABS: Alanine Aminotransferase 38 Units/L (0-55); Albumin 2.3 g/dL (3.5-5.0); Albumin/Globulin Ratio 0.7 (1.1-2.2); Alkaline Phosphatase 102 Units/L (38-126); Aspartate Amino Transferase 32 Units/L (5-34); BUN/Creatinine Ratio 17 (6-26); Bilirubin,Total 0.6 mg/dL (0.2-1.2); Blood Urea Nitrogen 13 mg/dL (7-20); Calcium 8.4 mg/dL (8.6-10.8); Carbon Dioxide 30 mEq/L (19-29); Chloride 98 mEq/L (98-109); Globulin 3.3 g/dL (2.4-3.5); Glucose 191 mg/dL (70-99); Magnesium 1.1 mg/dL (1.6-2.6); Osmolality,Calculated 283 (280-300); Potassium 3.7 mEq/L (3.5-4.5); Sodium 134 mEq/L (136-145); Total Protein 5.6 g/dL (6.0-8.3); eGFR For African Americans > 60 (> 60); eGFR For Non-African Americans > 60 (> 60)
[2017-02-20 03:09] LABS: Platelet Estimate Normal (Normal)
[2017-02-20 03:21] LABS: blaKPC Carbapenem-Resist Gene Not Detected (Not Detect)
[2017-02-20 03:22] LABS: Acinetobacter baumannii by PCR Not Detected (Not Detect); Candida albicans by PCR Not Detected (Not Detect); Candida glabrata by PCR Not Detected (Not Detect); Candida krusei by PCR Not Detected (Not Detect); Candida parapsilosis by PCR Not Detected (Not Detect); Candida tropicalis by PCR Not Detected (Not Detect); Enterococcus by PCR Not Detected (Not Detect); Escherichia coli by PCR Not Detected (Not Detect); Klebsiella oxytoca by PCR Not Detected (Not Detect); Klebsiella pneumoniae by PCR ***DETECTED*** (Not Detect); Pseudomonas aeruginosa by PCR Not Detected (Not Detect); Serratia marcescens by PCR Not Detected (Not Detect); Staphylococcus aureus by PCR Not Detected (Not Detect); Streptococcus agalactiae(B)PCR Not Detected (Not Detect); Streptococcus by PCR Not Detected (Not Detect); Streptococcus pneumoniae PCR Not Detected (Not Detect); Streptococcus pyogenes (A) PCR Not Detected (Not Detect)
[2017-02-20] MEDS: Hydrocortisone Sodium Succ 100 MG/2 ML VIAL IVP SCH ×3 (03:51→20:35)
[2017-02-20] MEDS ORDERED: Vancomycin 1,250 MG in D5% in Water 250 ML IVPB SCH (05:00)
[2017-02-20] MEDS: Vancomycin 1,000 MG in D5% in Water 250 ML IVPB SCH (05:22)
[2017-02-20] MEDS: *HR* Heparin 5,000 UNIT/ML VIAL SQ SCH ×2 (05:27→17:08)
[2017-02-20] MEDS ORDERED: Magnesium Sulfate 2 GM in D5% in Water 100 ML IVPB SCH (05:45)
[2017-02-20] MEDS: 0.9 % Sodium Chloride 1,000 ML IVC SCH ×6 (06:15→15:33)
[2017-02-20] MEDS ORDERED: Aminoglycoside Consult 1 EACH MC ONE (07:03)
[2017-02-20] MEDS: Budesonide/Formoterol 160/4.5 MDI IH SCH ×2 (07:42→20:36)
[2017-02-20] MEDS: Metoprolol XL (24 HR) Succ 50 MG TAB.ER.24H PO SCH (07:59)
[2017-02-20] MEDS: Piperacillin/Tazobactam 3.375 GM in D5% in Water 50 ML IVPB SCH ×2 (07:59→14:53)
[2017-02-20] MEDS: Aspirin 81 MG TAB.CHEW PO SCH (07:59)
[2017-02-20] MEDS: Magnesium Oxide 400 MG TABLET PO SCH ×2 (07:59→19:55)
[2017-02-20] MEDS: *HR* OxyCODONE Immed Rel 5 MG TABLET PO PRN ×3 (07:59→20:35)
[2017-02-20] MEDS: ALPRAZolam 0.25 MG TABLET PO PRN ×2 (11:13→21:49)
[2017-02-20] MEDS: LEVOFLOXACIN 750 MG/150 ML IVPB SCH (13:54)
--- NOTE | 2017-02-20 14:09 | Pulmonology Consult Note ---
<Andree Acosta - Last Filed: 02/20/17 14:37> Date of Encounter: 02/20/17 Time of Encounter: 13:20 Assessment and Plan (1) Sepsis Current Visit: Yes Status: Acute - 4 SIRS criteria (T 103.2, HR 162, RR 22, WBC 14.7) on admission with lactic acid 1.4. - Likely secondary to suspected Klebisella liver abscess (given imaging finding and positive PCR). Left shoulder and/or right knee surgical site can be another possible source infection. Unlikely pulmonary or urinary based on CTA chest and UA result. - Improves as patient's temperature, HR and RR normalized. - PCR positive for Klebsiella pneumoniae. - Blood cultures pending. - Currently on IV vancomycin (Day 2) and IV Zosyn (Day 2). Will discontinue vancomycin and add IV levofloxacin for double gram negative coverage. - Continue hydration with IV fluid. - Continue close monitoring. Qualifiers: Sepsis type: sepsis due to unspecified organism Qualified Code(s): A41.9 - Sepsis, unspecified organism (2) Liver lesion Current Visit: Yes Status: Acute - CTA chest on 02/19/17 found cystic lesion left lobe of liver concerning of liver abscess given current sepsis and positive PCR for Klebsiella pneumoniae. - Will obtain liver US and CT abdomen and pelvis with contrast for further work- up. - Patient will likely need drainage if further studies support diagnosis of abscess. (3) History of recent surgery Current Visit: Yes Status: Acute - S/p left shoulder and right knee surgery on 01/29/17 for fractures of left humerus and right patella. - Patient was discharged from rehab to home on 02/16/17 - Will obtain CT left shoulder and right knee with/without contrast to rule out possible abscess as source of current sepsis. - PT/OT consult. - Patient is currently on nuñez for post-operative immobilization. (4) COPD (chronic obstructive pulmonary disease) Current Visit: Yes Status: Chronic - Continue steroid, Symbicort, Duoneb and supplemental oxygen. Qualifiers: COPD type: unspecified COPD Qualified Code(s): J44.9 - Chronic obstructive pulmonary disease, unspecified (5) GERD (gastroesophageal reflux disease) Current Visit: No Status: Chronic - Continue omeprazole. Qualifiers: Esophagitis presence: without esophagitis Qualified Code(s): K21.9 - Gastro -esophageal reflux disease without esophagitis (6) CAD (coronary artery disease) Current Visit: No Status: Chronic - History of MD in 03/2016. Patient denies any stent placement. - Continue aspirin, statin and beta brenda. Qualifiers: Coronary Disease-Associated Artery/Lesion type: [place] artery [place] vs. transplanted heart: [place] heart Associated angina: without angina Qualified Code(s): I25.10 - Atherosclerotic heart disease of [place] coronary artery without angina pectoris (7) DVT prophylaxis Current Visit: Yes Status: Acute - Continue SQ heparin. History of Present Illness Consult date: 02/20/17 Requesting physician: Bernice Donaldson Reason for consult: other ("Klebsiella bacteremia") Chief complaint: Fever, chills, malaise. History of present illness: Ms. Cook is a 66 yo female with PMH of COPD, MD (03/2016 w/o stents), HTN, HLD, GERD and s/p right knee and left shoulder surgery on 01/29/17. Patient presented to [place] ED for fever, chills and malaise starting 2 am on 02/19/17. Patient was noted to have fever 103.2, tachycardia, tachypnea and WBC 14.7 in ED. Patient was admitted on 02/19/17 for sepsis and started on IV vancomycin and Zosyn. Critical care/pulmonology was also consulted. Patient was seen and examined this morning. Patient reports having fever, chills , fatigue, shortness of breath, nausea, anorexia and epigastric burning prior to admission. Patient denies worsening sputum production or color change, vomiting, diarrhea, hematochezia, melena, dysuria, hematuria. Patient reports no significant change of pain and range of motion for her left shoulder and right knee. Patient does not notice significant erythema or drainage from left shoulder and right knee. Patient feels better today compared to on admission. Patient admits smoking intermittently but denies alcohol or illicit drug use. Past Med Surg Social Fam HX - Past Medical History Medical history: COPD, coronary artery disease, GERD, hyperlipidemia, hypertension, myocardial infarction Psychiatric history: anxiety - Past Surgical History Surgical History: hysterectomy - Social History Smoking Status: Current every day smoker (she quit but started smoking again) Smokeless Tobacco Status: No Alcohol use: none Drug use: none - Family History Mother Living Status: Hx Family Cardiac Disorders: Yes Hx Family Cancer: Yes (colon ca) Hx Family Neurologic Disorders: Yes (cva) Hx Family HEENT Disorders: Yes (macular degeneration) Father Adopted: No Family Member Ethnicity: Non- Living Status: Hx Family Cardiac Disorders: Yes Hx Family Respiratory Disorders: No Hx Family Cancer: Yes (colon ca 1979) Hx Family GI Disorders: No Hx Family Endocrine Disorder: No Hx Family Neuromuscular Disorders: No Hx Family Neurologic Disorders: Yes (CVA with left side weakness) Hx Family HEENT Disorders: Yes (macular degeneration) Hx Family Autoimmune Disorders: No Medications and Allergies Ipratropium/Albuterol Neb [Duoneb] 3 ml IH QID PRN 08/12/15 [History] Omeprazole [PriLOSEC] 20 mg PO DAILY 08/12/15 [History] Aspirin 81 mg PO DAILY tab.chew 04/06/16 [Rx] Atorvastatin [Lipitor] 40 mg PO HS 01/26/17 [History] Fluticasone/Salmeterol [Advair 500-50 Diskus] 1 each IH BID 01/26/17 [History] Metoprolol Succinate 100 mg PO DAILY 01/26/17 [History] OxyCODONE Immed Rel [Roxicodone 5 MG] 5 mg PO Q6HR PRN #28 tablet 01/29/17 [Rx] ALPRAZolam [Xanax 0.25 MG Tablet] 0.25 mg PO Q8HR PRN 02/01/17 [History] Docusate [Colace] 100 mg PO BID capsule 02/01/17 [Rx] Ergocalciferol (VITAMIN D2) [Drisdol (50,000 Unit)] 50,000 unit PO QWEEK capsule 02/01/17 [Rx] Losartan [Cozaar] 100 mg PO DAILY tablet 02/01/17 [Rx] Magnesium Oxide [Mag-Ox] 400 mg PO BID tablet 02/01/17 [Rx] Temazepam [Restoril] 15 mg PO HS PRN capsule 02/01/17 [Rx] Bumetanide [Bumex] 1.5 mg PO DAILY #45 tablet 02/16/17 [Rx] Potassium Chloride 10 meq PO DAILY #30 tab.er.prt 02/16/17 [Rx] 3 Allergy/AdvReac Type Severity Reaction Status Date / Time No Known Allergies Allergy Verified 08/09/15 16:58 All Systems: A 10-system review of systems was performed and is negative for pertinent findings except as documented above in the HPI. - Constitutional Constitutional: anorexia, chills, fatigue, fever(s) - EENT Eyes: no loss of peripheral vision Ears: no decreased hearing - Cardiovascular Cardiovascular: pedal edema, no chest pain - Respiratory Respiratory: cough (No significant change from baseline), dyspnea, no excessive phlegm production, no change in phlegm color - Gastrointestinal Gastrointestinal: abdominal pain, nausea, no diarrhea, no hematochezia, no melena, no vomiting - Genitourinary Genitourinary: no difficulty urinating, no dysuria, no hematuria - Musculoskeletal Musculoskeletal: joint pain (No significant change on left shoulder and right knee) - Integumentary Integumentary: no erythema - Neurological Neurological: no focal weakness, no numbness, no tingling Physical Examination Vital Signs: Vital Signs, Last 4 Hours Temp Pulse Resp BP Pulse Ox 02/20/17 11:51 97.8 F 02/20/17 11:00 86 20 97/63 95 General appearance: no acute distress Eyes: nonicteric ENT: oropharynx moist Neck: supple Effort: normal Inspection: normal Auscultation: bilateral: clear Cardiovascular: regular rate and rhythm Gastrointestinal: normoactive bowel sounds, soft, non-tender, non-distended Integumentary: normal Extremities: no cyanosis Musculoskeletal: no deformities (No erythema nor drainage noted around left shoulder and right knee surgical site.) normal mental status, non-focal exam mood appropriate, affect normal Results - Laboratory Findings CBC and BMP: 02/20/17 02:41 02/20/17 02:41 PT/INR, D-dimer PT 18.0 Seconds (9.4-12.1) H 02/20/17 02:41 Abnormal lab findings: Abnormal lab results WBC 27.0 K/mcL (4.3-11.1) H D 02/20/17 02:41 RBC 3.40 M/mcL (3.82-4.97) L 02/20/17 02:41 Hgb 10.7 g/dL (11.5-15.4) L 02/20/17 02:41 Hct 32.6 % (35.3-44.9) L 02/20/17 02:41 MPV 9.0 fL (9.4-12.4) L 02/20/17 02:41 Neutrophils # 25.8 K/mcL (1.6-8.9) H 02/20/17 02:41 PT 18.0 Seconds (9.4-12.1) H 02/20/17 02:41 Sodium 134 mEq/L (136-145) L 02/20/17 02:41 Carbon Dioxide 30 mEq/L (19-29) H 02/20/17 02:41 Glucose 191 mg/dL (70-99) H 02/20/17 02:41 POC Glucose 156 (58-89) H 02/20/17 07:27 Calcium 8.4 mg/dL (8.6-10.8) L 02/20/17 02:41 Magnesium 1.1 mg/dL (1.6-2.6) L 02/20/17 02:41 Direct Bilirubin 0.6 mg/dL (0.0-0.5) H 02/19/17 16:44 C-Reactive Protein 128 mg/L (Less than 5) H 02/19/17 16:44 Serum Total Protein 5.6 g/dL (6.0-8.3) L 02/20/17 02:41 Albumin 2.3 g/dL (3.5-5.0) L 02/20/17 02:41 Albumin/Globulin Ratio 0.7 (1.1-2.2) L 02/20/17 02:41 TSH 0.190 mcIU/mL (0.350-4.840) L 02/20/17 02:41 Urine Protein 30 mg/dL (Neg-Trace) H 02/19/17 16:35 Urine Urobilinogen 4.0 mg/dL (Normal) H 02/19/17 16:35 Ur Squamous Epith Cells Many per lpf (None-Few) H 02/19/17 16:35 Urine Opiates Screen Positive ng/mL (Zyrjqa=790) H 02/19/17 16:35 U Benzodiazepines Scrn Positive ng/mL (Ozeqcw=097) H 02/19/17 16:35 Enterobacteriac sp PCR DETECTED (Not Detect) A 02/19/17 16:44 Klebsiella pneumoniae DETECTED (Not Detect) A 02/19/17 16:44 - Diagnostic Findings CT scan - chest: report reviewed, image reviewed - Clinical Findings Intake & Output: Intake & Output 02/19/17 02/20/17 02/20/17 23:59 07:59 15:59 Intake Total 240 / 240 1100 / 1100 1811 / 1811 Output Total 500 / 500 975 / 975 250 / 250 Balance -260 / -260 125 / 125 1561 / 1561 Weight 99 kg Consult Discharge Plan - Plan Referrals: Dion Whitman MD [Primary Care Provider] - <Shannen Rosario - Last Filed: 02/20/17 17:21> Date of Encounter: 02/20/17 All Systems: A 10-system review of systems was performed and is negative for pertinent findings except as documented above in the HPI. Physical Examination Vital Signs: Vital Signs, Last 4 Hours Temp Pulse Resp BP Pulse Ox 02/20/17 16:10 97.5 F L 02/20/17 15:00 82 22 91/46 96 Results - Laboratory Findings CBC and BMP: 02/20/17 02:41 02/20/17 02:41 PT/INR, D-dimer PT 18.0 Seconds (9.4-12.1) H 02/20/17 02:41 Abnormal lab findings: Abnormal lab results WBC 27.0 K/mcL (4.3-11.1) H D 02/20/17 02:41 RBC 3.40 M/mcL (3.82-4.97) L 02/20/17 02:41 Hgb 10.7 g/dL (11.5-15.4) L 02/20/17 02:41 Hct 32.6 % (35.3-44.9) L 02/20/17 02:41 MPV 9.0 fL (9.4-12.4) L 02/20/17 02:41 Neutrophils # 25.8 K/mcL (1.6-8.9) H 02/20/17 02:41 PT 18.0 Seconds (9.4-12.1) H 02/20/17 02:41 Sodium 134 mEq/L (136-145) L 02/20/17 02:41 Carbon Dioxide 30 mEq/L (19-29) H 02/20/17 02:41 Glucose 191 mg/dL (70-99) H 02/20/17 02:41 POC Glucose 156 (58-89) H 02/20/17 07:27 Calcium 8.4 mg/dL (8.6-10.8) L 02/20/17 02:41 Magnesium 1.1 mg/dL (1.6-2.6) L 02/20/17 02:41 Direct Bilirubin 0.6 mg/dL (0.0-0.5) H 02/19/17 16:44 C-Reactive Protein 128 mg/L (Less than 5) H 02/19/17 16:44 Serum Total Protein 5.6 g/dL (6.0-8.3) L 02/20/17 02:41 Albumin 2.3 g/dL (3.5-5.0) L 02/20/17 02:41 Albumin/Globulin Ratio 0.7 (1.1-2.2) L 02/20/17 02:41 TSH 0.190 mcIU/mL (0.350-4.840) L 02/20/17 02:41 Urine Protein 30 mg/dL (Neg-Trace) H 02/19/17 16:35 Urine Urobilinogen 4.0 mg/dL (Normal) H 02/19/17 16:35 Ur Squamous Epith Cells Many per lpf (None-Few) H 02/19/17 16:35 Urine Opiates Screen Positive ng/mL (Tgnpnh=813) H 02/19/17 16:35 U Benzodiazepines Scrn Positive ng/mL (Nzceny=581) H 02/19/17 16:35 Enterobacteriac sp PCR DETECTED (Not Detect) A 02/19/17 16:44 Klebsiella pneumoniae DETECTED (Not Detect) A 02/19/17 16:44 - Clinical Findings Intake & Output: Intake & Output 02/20/17 02/20/17 02/20/17 07:59 15:59 23:59 Intake Total 1100 / 1100 1960 / 1960 0 / 0 Output Total 975 / 975 250 / 250 350 / 350 Balance 125 / 125 171 / 171 -350 / -350 - Attending Attestation I examined this patient and my medical decision-making was reviewed with the Resident Physician. I agree with the documented findings, disposition and treatment plan as described except to the extent set forth below. Patient seen and examined. Labs, radiology, chart personally reviewed. 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 Patient with COPD and she would need to be on bronchodilators but she does not have evidence of exacerbation. Patient also has history of obstructive sleep apnea and she does not know her CPAP pressure will empirically treat her. Cardiovascular: stable GI: Nutrition per dietary and GI prophylaxis per routine Heme: DVT prophylaxis per routine ID: Continue antibiotics and plan to de-escalation. The patient has evidence of sepsis and the source is not clear. Concerned about liver will need CT abdomen and pelvis as well as images of the surgery sites. Renal; urine out put and renal funtion reviewed Endorcine: blood glucose is monitored Lines: all lines checked and no evidence of infections Skin: skin care to prevent pressure ulcers per nursing routine care Thank you for consultation.
[2017-02-20 18:52] LABS: Basophils % 0.1 %; Hemoglobin 10.5 g/dL (11.5-15.4); Lymphocytes # 0.7 K/mcL (0.6-4.6); Lymphocytes % 3.4 %; Mean Corpuscular HGB Conc 32.8 g/dL (31.6-35.5); Mean Corpuscular Hemoglobin 31.8 pg (28.0-33.3); Mean Platelet Volume 9.2 fL (9.4-12.4); Monocytes # 0.6 K/mcL (0.0-1.3); Monocytes % 2.8 %; Neutrophils # 18.3 K/mcL (1.6-8.9); Platelet Count 258 K/mcL (140-400); Red Cell Distribution Width 12.9 % (11.5-14.5); Segmented Neutrophils % 92.7 %
[2017-02-20 19:04] LABS: Magnesium 2.1 mg/dL (1.6-2.6); Phosphorous 2.5 mg/dL (2.3-4.7)
[2017-02-20 19:05] LABS: BUN/Creatinine Ratio 22 (6-26); Blood Urea Nitrogen 17 mg/dL (7-20); Calcium 8.5 mg/dL (8.6-10.8); Carbon Dioxide 30 mEq/L (19-29); Chloride 101 mEq/L (98-109); Glucose 116 mg/dL (70-99); Osmolality,Calculated 283 (280-300); Potassium 3.9 mEq/L (3.5-4.5); Sodium 135 mEq/L (136-145); eGFR For African Americans > 60 (> 60); eGFR For Non-African Americans > 60 (> 60)
--- NOTE | 2017-02-20 20:36 | Electrocardiograph Report ---
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
[2017-02-21] MEDS: Piperacillin/Tazobactam 3.375 GM in D5% in Water 50 ML IVPB SCH ×3 (00:20→18:02)
[2017-02-21] MEDS: 0.9 % Sodium Chloride 1,000 ML IVC SCH ×2 (02:03→12:53)
[2017-02-21] MEDS: *HR* OxyCODONE Immed Rel 5 MG TABLET PO PRN ×3 (02:39→17:14)
[2017-02-21] MEDS: Hydrocortisone Sodium Succ 100 MG/2 ML VIAL IVP SCH ×2 (05:06→11:22)
[2017-02-21] MEDS: *HR* Heparin 5,000 UNIT/ML VIAL SQ SCH ×2 (05:06→17:10)
[2017-02-21] MEDS: Aspirin 81 MG TAB.CHEW PO SCH (07:33)
[2017-02-21] MEDS: Magnesium Oxide 400 MG TABLET PO SCH ×2 (07:33→20:08)
[2017-02-21] MEDS: Metoprolol XL (24 HR) Succ 50 MG TAB.ER.24H PO SCH (07:33)
[2017-02-21] MEDS: ALPRAZolam 0.25 MG TABLET PO PRN ×2 (08:00→20:08)
[2017-02-21] MEDS: Budesonide/Formoterol 160/4.5 MDI IH SCH ×2 (08:36→22:45)
--- NOTE | 2017-02-21 09:27 | Pulmonology Progress Note ---
<Andree Acosta - Last Filed: 02/21/17 10:31> Date of Encounter: 02/21/17 Time of Encounter: 09:00 Assessment and Plan (1) Sepsis Current Visit: Yes Status: Acute - 4 SIRS criteria (T 103.2, HR 162, RR 22, WBC 14.7) on admission with lactic acid 1.4. - Likely secondary to suspected Klebisella liver abscess (given imaging finding and positive PCR). Left shoulder and/or right knee surgical site can be another possible source infection. Unlikely pulmonary or urinary based on CTA chest and UA result. - Improves as patient's temperature, HR and RR normalized. - PCR positive for Klebsiella pneumoniae. - Blood cultures 2/2 preliminarily grew GNR - Currently on IV Zosyn (Day 3) and levofloxacin (Day 2). - Continue hydration with IV fluid. - Patient was transferred to earlier this morning. Patient was signed off to Dr. Erickson, senior resident on [facility] hospitalist team. Qualifiers: Sepsis type: sepsis due to unspecified organism Qualified Code(s): A41.9 - Sepsis, unspecified organism (2) Liver lesion Current Visit: Yes Status: Acute - CTA chest on 02/19/17 found cystic lesion left lobe of liver concerning of liver abscess given current sepsis and positive PCR for Klebsiella pneumoniae. - Liver US found large septated cyst in the left lobe of the liver. - CT A/P with contrast showed benign-appearing posterior left hepatic lobe cystic mass but no evidence of liver abscess. Also heterogeneous partially visualized mass in the left anterior thigh musculature with mixed areas of hyperdensity and underlying fat which can be lipomatosis tumor including possible liposarcoma. - Patient may need biopsy/aspiration as further work-up. (3) History of recent surgery Current Visit: Yes Status: Acute - S/p left shoulder and right knee surgery on 01/29/17 for fractures of left humerus and right patella. - Patient was discharged from rehab to home on 02/16/17 - No abscess per CT left shoulder and right knee with/without contrast. - PT/OT consult. - Patient is currently on nuñez for post-operative immobilization. (4) COPD (chronic obstructive pulmonary disease) Current Visit: Yes Status: Chronic - Continue steroid, Symbicort, Duoneb and supplemental oxygen. Qualifiers: COPD type: unspecified COPD Qualified Code(s): J44.9 - Chronic obstructive pulmonary disease, unspecified (5) GERD (gastroesophageal reflux disease) Current Visit: No Status: Chronic - Continue omeprazole. Qualifiers: Esophagitis presence: without esophagitis Qualified Code(s): K21.9 - Gastro -esophageal reflux disease without esophagitis (6) CAD (coronary artery disease) Current Visit: No Status: Chronic - History of MD in 03/2016. Patient denies any stent placement. - Continue aspirin, statin and beta brenda. Qualifiers: Coronary Disease-Associated Artery/Lesion type: [place] artery [place] vs. transplanted heart: [place] heart Associated angina: without angina Qualified Code(s): I25.10 - Atherosclerotic heart disease of [place] coronary artery without angina pectoris (7) DVT prophylaxis Current Visit: Yes Status: Acute - Continue SQ heparin. Subjective Principal diagnosis: Sepsis Interval history: Patient was transferred from ICU to at 3 am. Patient was seen and examined this morning. Patient reports feeling okay. Patient denies fever, chills, abdominal pain, lower extremity pain. Objective PUL Vital signs: Last Vital Signs Temp 98.0 F 02/21/17 07:18 Pulse 90 02/21/17 07:59 Resp 18 02/21/17 08:36 BP 127/84 02/21/17 07:18 Pulse Ox 95 02/21/17 08:36 General appearance: no acute distress Eyes: nonicteric ENT: oropharynx moist Neck: supple Effort: normal Auscultation: bilateral: wheezes Cardiovascular: regular rate and rhythm Gastrointestinal: normoactive bowel sounds, soft, non-tender, non-distended Integumentary: normal Extremities: no cyanosis Musculoskeletal: no deformities normal mental status, non-focal exam mood appropriate, affect normal Results - Laboratory Findings CBC and BMP: 02/20/17 18:45 02/20/17 18:45 PT/INR, D-dimer PT 18.0 Seconds (9.4-12.1) H 02/20/17 02:41 Abnormal lab findings: Abnormal lab results WBC 19.7 K/mcL (4.3-11.1) H 02/20/17 18:45 RBC 3.30 M/mcL (3.82-4.97) L 02/20/17 18:45 Hgb 10.5 g/dL (11.5-15.4) L 02/20/17 18:45 Hct 32.0 % (35.3-44.9) L 02/20/17 18:45 MPV 9.2 fL (9.4-12.4) L 02/20/17 18:45 Neutrophils # 18.3 K/mcL (1.6-8.9) H 02/20/17 18:45 PT 18.0 Seconds (9.4-12.1) H 02/20/17 02:41 Sodium 135 mEq/L (136-145) L 02/20/17 18:45 Carbon Dioxide 30 mEq/L (19-29) H 02/20/17 18:45 Glucose 116 mg/dL (70-99) H 02/20/17 18:45 POC Glucose 156 (58-89) H 02/20/17 07:27 Calcium 8.5 mg/dL (8.6-10.8) L 02/20/17 18:45 Direct Bilirubin 0.6 mg/dL (0.0-0.5) H 02/19/17 16:44 C-Reactive Protein 128 mg/L (Less than 5) H 02/19/17 16:44 Serum Total Protein 5.6 g/dL (6.0-8.3) L 02/20/17 02:41 Albumin 2.3 g/dL (3.5-5.0) L 02/20/17 02:41 Albumin/Globulin Ratio 0.7 (1.1-2.2) L 02/20/17 02:41 TSH 0.190 mcIU/mL (0.350-4.840) L 02/20/17 02:41 Urine Protein 30 mg/dL (Neg-Trace) H 02/19/17 16:35 Urine Urobilinogen 4.0 mg/dL (Normal) H 02/19/17 16:35 Ur Squamous Epith Cells Many per lpf (None-Few) H 02/19/17 16:35 Urine Opiates Screen Positive ng/mL (Zyptdp=746) H 02/19/17 16:35 U Benzodiazepines Scrn Positive ng/mL (Rlnole=783) H 02/19/17 16:35 Enterobacteriac sp PCR DETECTED (Not Detect) A 02/19/17 16:44 Klebsiella pneumoniae DETECTED (Not Detect) A 02/19/17 16:44 - Clinical Findings Intake & Output: Intake & Output 02/20/17 02/21/17 02/21/17 23:59 07:59 15:59 Intake Total 50 / 50 1310 / 1310 Output Total 650 / 650 150 / 150 Balance -600 / -600 1160 / 1160 Weight 104.4 kg - VTE Documentation of Mechanical Device: Intermittent pneumatic compression device Consult Discharge Plan - Plan Referrals: Dion Whitman MD [Primary Care Provider] - 02/26/17 3:30 pm (HUSAM MCKEON WANTED ME TO LET YOU KNOW YOUR APPOINTMENT FOR 02-27-17 HAS BEEN CANCELLED, SHE ADDED IN ON THIS APPOINTMENT) <Shannen Rosario - Last Filed: 02/21/17 12:18> Date of Encounter: 02/21/17 Objective PUL Vital signs: Last Vital Signs Temp 98.4 F 02/21/17 11:00 Pulse 88 02/21/17 11:00 Resp 18 02/21/17 11:00 BP 124/82 02/21/17 11:00 Pulse Ox 96 02/21/17 11:00 Results - Laboratory Findings CBC and BMP: 02/20/17 18:45 02/20/17 18:45 PT/INR, D-dimer PT 18.0 Seconds (9.4-12.1) H 02/20/17 02:41 Abnormal lab findings: Abnormal lab results WBC 19.7 K/mcL (4.3-11.1) H 02/20/17 18:45 RBC 3.30 M/mcL (3.82-4.97) L 02/20/17 18:45 Hgb 10.5 g/dL (11.5-15.4) L 02/20/17 18:45 Hct 32.0 % (35.3-44.9) L 02/20/17 18:45 MPV 9.2 fL (9.4-12.4) L 02/20/17 18:45 Neutrophils # 18.3 K/mcL (1.6-8.9) H 02/20/17 18:45 PT 18.0 Seconds (9.4-12.1) H 02/20/17 02:41 Sodium 135 mEq/L (136-145) L 02/20/17 18:45 Carbon Dioxide 30 mEq/L (19-29) H 02/20/17 18:45 Glucose 116 mg/dL (70-99) H 02/20/17 18:45 POC Glucose 156 (58-89) H 02/20/17 07:27 Calcium 8.5 mg/dL (8.6-10.8) L 02/20/17 18:45 Direct Bilirubin 0.6 mg/dL (0.0-0.5) H 02/19/17 16:44 C-Reactive Protein 128 mg/L (Less than 5) H 02/19/17 16:44 Serum Total Protein 5.6 g/dL (6.0-8.3) L 02/20/17 02:41 Albumin 2.3 g/dL (3.5-5.0) L 02/20/17 02:41 Albumin/Globulin Ratio 0.7 (1.1-2.2) L 02/20/17 02:41 TSH 0.190 mcIU/mL (0.350-4.840) L 02/20/17 02:41 Urine Protein 30 mg/dL (Neg-Trace) H 02/19/17 16:35 Urine Urobilinogen 4.0 mg/dL (Normal) H 02/19/17 16:35 Ur Squamous Epith Cells Many per lpf (None-Few) H 02/19/17 16:35 Urine Opiates Screen Positive ng/mL (Igvnum=474) H 02/19/17 16:35 U Benzodiazepines Scrn Positive ng/mL (Nprwhz=245) H 02/19/17 16:35 Enterobacteriac sp PCR DETECTED (Not Detect) A 02/19/17 16:44 Klebsiella pneumoniae DETECTED (Not Detect) A 02/19/17 16:44 - Clinical Findings Intake & Output: Intake & Output 02/20/17 02/21/17 02/21/17 23:59 07:59 15:59 Intake Total 50 / 50 1310 / 1310 50 / 50 Output Total 650 / 650 150 / 150 Balance -600 / -600 1160 / 1160 50 / 50 Weight 104.4 kg - Attending Attestation I examined this patient and my medical decision-making was reviewed with the Resident Physician. I agree with the documented findings, disposition and treatment plan as described except to the extent set forth below. Patient seen and examined. Labs, radiology, chart personally reviewed. 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 Advised her to use her CPAP at night for her obstructive sleep apnea and we know of oxygen to keep SPO2 around 90% Cardiovascular: stable GI: Nutrition per dietary and GI prophylaxis per routine Heme: DVT prophylaxis per routine ID: Continue antibiotics and plan to de-escalation. Reviewed CT images and primary team hospitalist to continue management and will follow-up as needed Renal; urine out put and renal funtion reviewed Endorcine: blood glucose is monitored Lines: all lines checked and no evidence of infections Skin: skin care to prevent pressure ulcers per nursing routine care Thank you very much for the consultation
[2017-02-21] MEDS: LEVOFLOXACIN 750 MG/150 ML IVPB SCH (12:53)
[2017-02-21 16:07] LABS: VBG Base Excess -2 mEq/L; VBG Chloride 106 mEq/L (98-107); VBG Glucose 125 mg/dl (65-95); VBG HCO3 25 mEq/L (21-27); VBG Ionized Calcium 1.01 mmol/L (1.15-1.35); VBG Oxygen Saturation 99 %; VBG PCO2 53 mmHg (41-51); VBG PH 7.29 pH Units (7.32-7.42); VBG PO2 174 mmHg (25-50); VBG Total CO2 27 mEq/L
--- NOTE | 2017-02-21 17:53 | Internal Med Progress Note ---
Date of Encounter: 02/21/17 Time of Encounter: 13:45 - Assessment and plan (1) Bacteremia Current Visit: Yes Status: Acute Assessment and plan: Of unclear etiology Blood cultures gram negative jimbo, PCR positive for Klebsiella pneumoniae clinically improving f/u official blood culture results continue empiric IV abx (Zosyn-Day 3 and Levofloxacin-Day 2) (2) Sepsis Current Visit: Yes Status: Acute Assessment and plan: improving continue empiric IV abx therapy pt transferred from the ICU overnight Qualifiers: Sepsis type: sepsis due to unspecified organism Qualified Code(s): A41.9 - Sepsis, unspecified organism (3) Liver lesion Current Visit: Yes Status: Acute Assessment and plan: -Incidental finding on CT chest -CT abd/pelvis reported benign-appearing posterior left hepatic lobe cystic mass but no evidence of liver abscess. Also heterogeneous partially visualized mass in the left anterior thigh musculature with mixed areas of hyperdensity and underlying fat which can be lipomatosis tumor including possible liposarcoma and MRI of left thigh is recommended for further evaluation -Left thigh MRI ordered -IR consulted for possible liver lesion biopsy -Liver biopsy reported: large septated cyst in the left lobe of the liver, this has increased in size since previous CT in 2004 (4) HTN (hypertension) Current Visit: No Status: Chronic Assessment and plan: BP within acceptable range continue home meds Qualifiers: Hypertension type: essential hypertension Qualified Code(s): I10 - Essential (primary) hypertension (5) SANJUANA (obstructive sleep apnea) Current Visit: No Status: Chronic Assessment and plan: continue CPAP at bedtime (6) GERD (gastroesophageal reflux disease) Current Visit: No Status: Chronic Qualifiers: Esophagitis presence: without esophagitis Qualified Code(s): K21.9 - Gastro -esophageal reflux disease without esophagitis (7) COPD (chronic obstructive pulmonary disease) Current Visit: Yes Status: Chronic Assessment and plan: continue bronchodilator support O2 supplementation not in acute exacerbation Qualifiers: COPD type: unspecified COPD Qualified Code(s): J44.9 - Chronic obstructive pulmonary disease, unspecified (8) DVT prophylaxis Current Visit: Yes Status: Acute Assessment and plan: Heparin SQ - Subjective Interval history: Patient seen and examined at bedside. Resting in bed and saturating well on nasal cannula. reports of being on baseline home oxygen. States she recently started smoking again after her current injuries (shoulder and knee fx-s/p surgery) Denies any fever, chills at this time Pt was initially admitted to ICU for severe sepsis, transferred to on overnight. - Constitutional Vitals: Temp Pulse Resp BP Pulse Ox 98.0 F 60 17 116/72 96 02/21/17 15:00 02/21/17 15:15 02/21/17 15:00 02/21/17 17:17 02/21/17 15:00 General appearance: Present: A&O X 3, no acute distress, obese, answers questions appropriately - Head Head exam: Present: atraumatic, normocephalic - Eye Eye exam: Present: conjuntiva pink, sclera anicteric - Respiratory Respiratory exam: Present: decreased breath sounds. Absent: respiratory distress, wheezes - Cardiovascular Cardiovascular exam: Present: RRR, +S1, +S2. Absent: diastolic murmur, gallop, rubs, systolic murmur - GI/Abdominal GI/Abdominal exam: Present: normal bowel sounds, soft, no peritoneal signs. Absent: distended, tenderness - Extremities Exam Extremities exam: Present: warm, radial pulses palpable and symmetrical. Absent : calf tenderness - Neurological Exam Neurological exam: Present: alert, oriented X3 - Psychiatric Psychiatric exam: Present: normal affect, normal mood Internal Medicine: Result - Labs CBC & Chem 7: 02/20/17 18:45 02/20/17 18:45 Labs: Short CBC 02/20/17 Range/Units 18:45 WBC 19.7 H (4.3-11.1) K/mcL Hgb 10.5 L (11.5-15.4) g/dL Hct 32.0 L (35.3-44.9) % Plt Count 258 (140-400) K/mcL Neutrophils # 18.3 H (1.6-8.9) K/mcL BMP 02/20/17 18:45 Sodium 135 L Potassium 3.9 Chloride 101 Carbon Dioxide 30 H BUN 17 Creatinine 0.76 Glucose 116 H Calcium 8.5 L - ABG Interpretation ABG results: PT/INR, D-dimer PT 18.0 Seconds (9.4-12.1) H 02/20/17 02:41 - Impressions Impressions Liver Ultrasound 02/20/17 22:00 IMPRESSION: 1. There is a large septated cyst in the left lobe of the liver, corresponding to the lesion noted on the recent CT. This has increased in size since a previous CT of the abdomen on 03/09/2005. 2. Biliary sludge. No gallstones. D/ / 02/21/2017 07:07:03 Stu Plaza MD / mable Interpreting Provider: Stu Plaza MD Abdomen/Pelvis CT 02/21/17 22:00 IMPRESSION: 1. Re- demonstration of benign-appearing posterior left hepatic lobe cystic mass as measured above, no evidence of liver abscess. 2. Heterogeneous partially visualized mass in the left anterior thigh musculature with mixed areas of hyperdensity and underlying fat as measured above. Primary diagnostic consideration is lipomatosis tumor including possible liposarcoma. 3. Multiple incidental/chronic findings as detailed above. RECOMMENDATIONS: Recommend MRI of the left thigh. D/ / Kassi Dugan MD / Kassi Dugan MD Interpreting Provider: Kassi Dugan MD Knee CT 02/21/17 22:00 IMPRESSION: 1. Comminuted, displaced fracture through the patella, stable. There is an associated right knee effusion with adjacent soft tissue swelling and nonspecific subcutaneous edema surrounding the right knee. 2. No other fractures are identified. D/ / 02/21/2017 07:33:51 Stu Plaza MD / mable Interpreting Provider: Stu Plaza MD Shoulder CT 02/21/17 22:00 IMPRESSION: 1. ORIF of the proximal left humeral head and neck fractures. There is a Hill-Sachs fracture noted. 2. Fracture noted through the inferior aspect of the left glenoid. 3. Atherosclerotic disease. D/ / 02/21/2017 07:57:07 Stu Plaza MD / mable Interpreting Provider: Stu Plaza MD - VTE Documentation of Mechanical Device: Intermittent pneumatic compression device Consult Discharge Plan - Plan Referrals: Dion Whitman MD [Primary Care Provider] - 02/26/17 3:30 pm (HUSAM MCKEON WANTED ME TO LET YOU KNOW YOUR APPOINTMENT FOR 02-27-17 HAS BEEN CANCELLED, SHE ADDED IN ON THIS APPOINTMENT)
[2017-02-22] MEDS: *HR* OxyCODONE Immed Rel 5 MG TABLET PO PRN ×4 (02:58→23:24)
[2017-02-22] MEDS: 0.9 % Sodium Chloride 1,000 ML IVC SCH ×2 (02:59→14:42)
[2017-02-22 03:22] LABS: Basophils % 0.1 %; Eosinophils % 0.3 %; Hematocrit 29.9 % (35.3-44.9); Hemoglobin 9.5 g/dL (11.5-15.4); Immature Granulocytes % 0.6 % (0-4); Lymphocytes % 11.7 %; Mean Corpuscular HGB Conc 31.8 g/dL (31.6-35.5); Mean Corpuscular Hemoglobin 31.5 pg (28.0-33.3); Mean Platelet Volume 9.6 fL (9.4-12.4); Neutrophils # 7.3 K/mcL (1.6-8.9); Platelet Count 226 K/mcL (140-400); Red Blood Count 3.02 M/mcL (3.82-4.97); Red Cell Distribution Width 13.1 % (11.5-14.5); Segmented Neutrophils % 82.3 %
[2017-02-22 03:30] LABS: Monocytes # 0.5 K/mcL (0.0-1.3)
[2017-02-22 03:38] LABS: Magnesium 1.8 mg/dL (1.6-2.6); Phosphorous 2.5 mg/dL (2.3-4.7)
[2017-02-22 03:40] LABS: BUN/Creatinine Ratio 24 (6-26); Blood Urea Nitrogen 17 mg/dL (7-20); Calcium 8.7 mg/dL (8.6-10.8); Carbon Dioxide 30 mEq/L (19-29); Chloride 102 mEq/L (98-109); Glucose 120 mg/dL (70-99); Osmolality,Calculated 283 (280-300); Potassium 4.2 mEq/L (3.5-4.5); Sodium 135 mEq/L (136-145); eGFR For African Americans > 60 (> 60); eGFR For Non-African Americans > 60 (> 60)
[2017-02-22] MEDS: *HR* Heparin 5,000 UNIT/ML VIAL SQ SCH ×2 (04:52→17:20)
[2017-02-22] MEDS: ALPRAZolam 0.25 MG TABLET PO PRN ×3 (04:52→23:24)
[2017-02-22 07:45] LABS: VBG PH 7.22 pH Units (7.32-7.42)
[2017-02-22] MEDS ORDERED: Piperacillin/Tazobactam 3.375 GM in D5% in Water 50 ML IVPB SCH (08:00)
[2017-02-22] MEDS: Budesonide/Formoterol 160/4.5 MDI IH SCH ×2 (08:41→20:36)
[2017-02-22] MEDS: Magnesium Oxide 400 MG TABLET PO SCH ×2 (10:06→20:30)
[2017-02-22] MEDS: Aspirin 81 MG TAB.CHEW PO SCH (10:06)
[2017-02-22] MEDS: Metoprolol XL (24 HR) Succ 50 MG TAB.ER.24H PO SCH (10:07)
--- NOTE | 2017-02-22 13:49 | Internal Med Progress Note ---
<Ronen Mcdaniels - Last Filed: 02/22/17 13:47> Date of Encounter: 02/22/17 Time of Encounter: 11:00 - Assessment and plan (1) Bacteremia Current Visit: Yes Status: Acute Assessment and plan: Of unclear etiology Final blood culture positive for Klebsiella pneumoniae which is sensitive to both Zosyn and Levaquin. Zosyn discontinued today and we will continue IV Levaquin (currently on day #3) Repeat blood cultures pending clinically improving (2) Sepsis Current Visit: Yes Status: Acute Assessment and plan: improving continue IV abx therapy Qualifiers: Sepsis type: sepsis due to unspecified organism Qualified Code(s): A41.9 - Sepsis, unspecified organism (3) Liver lesion Current Visit: Yes Status: Acute Assessment and plan: -Incidental finding on CT chest -CT abd/pelvis reported benign-appearing posterior left hepatic lobe cystic mass but no evidence of liver abscess. Also heterogeneous partially visualized mass in the left anterior thigh musculature with mixed areas of hyperdensity and underlying fat which can be lipomatosis tumor including possible liposarcoma and MRI of left thigh is recommended for further evaluation -Left femur MRI showed fat signal mass possibly representing benign atypical lipomatous tumor. Will consider orthopedic oncologist consultation -IR consulted for possible liver lesion biopsy -Liver biopsy reported: large septated cyst in the left lobe of the liver, this has increased in size since previous CT in 2004 (4) HTN (hypertension) Current Visit: No Status: Chronic Assessment and plan: BP within acceptable range continue home meds Qualifiers: Hypertension type: essential hypertension Qualified Code(s): I10 - Essential (primary) hypertension (5) SANJUANA (obstructive sleep apnea) Current Visit: No Status: Chronic Assessment and plan: continue CPAP at bedtime (6) GERD (gastroesophageal reflux disease) Current Visit: No Status: Chronic Qualifiers: Esophagitis presence: without esophagitis Qualified Code(s): K21.9 - Gastro -esophageal reflux disease without esophagitis (7) COPD (chronic obstructive pulmonary disease) Current Visit: Yes Status: Chronic Assessment and plan: continue bronchodilator support O2 supplementation not in acute exacerbation Qualifiers: COPD type: unspecified COPD Qualified Code(s): J44.9 - Chronic obstructive pulmonary disease, unspecified (8) DVT prophylaxis Current Visit: Yes Status: Acute Assessment and plan: Heparin SQ - Subjective Interval history: Patient seen and examined at bedside this morning. Denies fevers/chills - Constitutional Vitals: Temp Pulse Resp BP Pulse Ox 98.6 F 93 20 152/79 96 02/22/17 11:30 02/22/17 11:30 02/22/17 11:30 02/22/17 11:30 02/22/17 11:30 General appearance: Present: A&O X 3, no acute distress, obese, answers questions appropriately - Respiratory Respiratory exam: Present: decreased breath sounds. Absent: accessory muscle use, rales, respiratory distress, rhonchi, wheezes - Cardiovascular Cardiovascular exam: Present: RRR, +S1, +S2. Absent: diastolic murmur, gallop, rubs, systolic murmur - GI/Abdominal GI/Abdominal exam: Present: normal bowel sounds, soft, no peritoneal signs. Absent: distended, tenderness - Extremities Exam Extremities exam: Present: warm, radial pulses palpable and symmetrical. Absent : calf tenderness, cyanotic, pedal edema - Neurological Exam Neurological exam: Present: alert, oriented X3 Internal Medicine: Result - Labs CBC & Chem 7: 02/22/17 03:06 02/22/17 03:06 Labs: Short CBC 02/22/17 Range/Units 03:06 WBC 8.9 D (4.3-11.1) K/mcL Hgb 9.5 L (11.5-15.4) g/dL Hct 29.9 L (35.3-44.9) % Plt Count 226 (140-400) K/mcL Neutrophils # 7.3 (1.6-8.9) K/mcL BMP 02/22/17 03:06 Sodium 135 L Potassium 4.2 Chloride 102 Carbon Dioxide 30 H BUN 17 Creatinine 0.72 Glucose 120 H Calcium 8.7 - ABG Interpretation ABG results: PT/INR, D-dimer PT 18.0 Seconds (9.4-12.1) H 02/20/17 02:41 - Impressions Impressions Femur MRI 02/21/17 17:48 IMPRESSION: 6.2 x 4.9 x 4.1 cm predominantly fat signal mass in the anterior soft tissues of the proximal left thigh between the vastus and adductor muscles and deep to the superficial femoral vessels. Numerous mildly enhancing internal septations with mild peripheral nodularity. This may represent a benign atypical lipomatous tumor although a liposarcoma is not excluded. Recommend consultation with orthopedic oncologist and consideration of biopsy. D/ / Henok Mccall MD / Henok Mccall MD Interpreting Provider: Henok Mccall MD Shoulder CT 02/21/17 22:00 IMPRESSION: 1. ORIF of the proximal left humeral head and neck fractures. There is a Hill-Sachs fracture noted. 2. Fracture noted through the inferior aspect of the left glenoid. 3. Atherosclerotic disease. D/ / 02/21/2017 07:57:07 Stu Plaza MD / mable Interpreting Provider: Stu Plaza MD - VTE Documentation of Mechanical Device: Intermittent pneumatic compression device Consult Discharge Plan - Plan Referrals: Dion Whitman MD [Primary Care Provider] - 02/26/17 3:30 pm (HUSAM VANCEHEAD WANTED ME TO LET YOU KNOW YOUR APPOINTMENT FOR 02-27-17 HAS BEEN CANCELLED, SHE ADDED IN ON THIS APPOINTMENT) <Marcus Schmitt - Last Filed: 02/22/17 14:40> Date of Encounter: 02/22/17 - Constitutional Vitals: Temp Pulse Resp BP Pulse Ox 98.6 F 93 20 152/79 96 02/22/17 11:30 02/22/17 11:30 02/22/17 11:30 02/22/17 11:30 02/22/17 11:30 Internal Medicine: Result - Labs CBC & Chem 7: 02/22/17 03:06 02/22/17 03:06 Labs: Short CBC 02/22/17 Range/Units 03:06 WBC 8.9 D (4.3-11.1) K/mcL Hgb 9.5 L (11.5-15.4) g/dL Hct 29.9 L (35.3-44.9) % Plt Count 226 (140-400) K/mcL Neutrophils # 7.3 (1.6-8.9) K/mcL BMP 02/22/17 03:06 Sodium 135 L Potassium 4.2 Chloride 102 Carbon Dioxide 30 H BUN 17 Creatinine 0.72 Glucose 120 H Calcium 8.7 - ABG Interpretation ABG results: PT/INR, D-dimer PT 18.0 Seconds (9.4-12.1) H 02/20/17 02:41 - Impressions Impressions Femur MRI 02/21/17 17:48 IMPRESSION: 6.2 x 4.9 x 4.1 cm predominantly fat signal mass in the anterior soft tissues of the proximal left thigh between the vastus and adductor muscles and deep to the superficial femoral vessels. Numerous mildly enhancing internal septations with mild peripheral nodularity. This may represent a benign atypical lipomatous tumor although a liposarcoma is not excluded. Recommend consultation with orthopedic oncologist and consideration of biopsy. D/ / Henok Mccall MD / Henok Mccall MD Interpreting Provider: Henok Mccall MD Shoulder CT 02/21/17 22:00 IMPRESSION: 1. ORIF of the proximal left humeral head and neck fractures. There is a Hill-Sachs fracture noted. 2. Fracture noted through the inferior aspect of the left glenoid. 3. Atherosclerotic disease. D/ / 02/21/2017 07:57:07 Stu Plaza MD / earnodeanna Interpreting Provider: Stu Plaza MD - Attending Attestation I personally interviewed and examined this pt. I agree with the findings, assessment and plan of Dr. Mcdaniels, sports intern. Continue Levaquin. Source for bacteremia not entirely clear. Will ask for ortho opinion as well given her post op state, and potential concern for inf related to surgery. All else as above.
[2017-02-22] MEDS: LEVOFLOXACIN 750 MG/150 ML IVPB SCH (14:43)
[2017-02-22] MEDS: Ipratropium/Albuterol Neb 3 ML IH PRN (17:25)
[2017-02-23 03:22] LABS: Basophils % 0.2 %; Eosinophils # 0.1 K/mcL (0.0-0.6); Eosinophils % 0.8 %; Hematocrit 31.8 % (35.3-44.9); Hemoglobin 10.1 g/dL (11.5-15.4); Immature Granulocytes % 1.1 % (0-4); Immature Platelets 2.7 % (1.1-6.1); Lymphocytes # 0.7 K/mcL (0.6-4.6); Mean Corpuscular HGB Conc 31.8 g/dL (31.6-35.5); Mean Corpuscular Hemoglobin 31.2 pg (28.0-33.3); Mean Corpuscular Volume 98.1 fL (83.0-100.0); Mean Platelet Volume 9.3 fL (9.4-12.4); Monocytes # 0.6 K/mcL (0.0-1.3); Monocytes % 5.8 %; Neutrophils # 8.2 K/mcL (1.6-8.9); Platelet Count 209 K/mcL (140-400); Red Blood Count 3.24 M/mcL (3.82-4.97); Red Cell Distribution Width 13.1 % (11.5-14.5); Segmented Neutrophils % 85.1 %
[2017-02-23 03:34] LABS: BUN/Creatinine Ratio 19 (6-26); Blood Urea Nitrogen 11 mg/dL (7-20); Calcium 8.4 mg/dL (8.6-10.8); Carbon Dioxide 30 mEq/L (19-29); Chloride 101 mEq/L (98-109); Glucose 91 mg/dL (70-99); Osmolality,Calculated 279 (280-300); Sodium 135 mEq/L (136-145); eGFR For African Americans > 60 (> 60); eGFR For Non-African Americans > 60 (> 60)
[2017-02-23] MEDS: 0.9 % Sodium Chloride 1,000 ML IVC SCH ×2 (04:08→05:39)
[2017-02-23 05:01] LABS: VBG HCO3 32 mEq/L (21-27); VBG Ionized Calcium 1.13 mmol/L (1.15-1.35); VBG PCO2 62 mmHg (41-51); VBG PH 7.32 pH Units (7.32-7.42); VBG PO2 216 mmHg (25-50)
[2017-02-23 05:08] LABS: Magnesium 1.4 mg/dL (1.6-2.6); Phosphorous 2.9 mg/dL (2.3-4.7)
[2017-02-23] MEDS: *HR* OxyCODONE Immed Rel 5 MG TABLET PO PRN ×2 (06:18→21:02)
[2017-02-23] MEDS: *HR* Heparin 5,000 UNIT/ML VIAL SQ SCH ×2 (06:18→17:00)
[2017-02-23] MEDS: Metoprolol XL (24 HR) Succ 50 MG TAB.ER.24H PO SCH (08:19)
[2017-02-23] MEDS: Magnesium Oxide 400 MG TABLET PO SCH ×2 (08:19→20:59)
[2017-02-23] MEDS: Aspirin 81 MG TAB.CHEW PO SCH (08:19)
--- NOTE | 2017-02-23 09:29 | Internal Med Progress Note ---
<Ronen Mcdaniels - Last Filed: 02/23/17 13:55> Date of Encounter: 02/23/17 Time of Encounter: 09:27 - Assessment and plan (1) Bacteremia Current Visit: Yes Status: Acute Assessment and plan: Unclear etiology. Chest imaging normal, unlikely urinary tract source. Recent surgical sites appropriate on exam. Final blood culture positive for Klebsiella pneumoniae which is sensitive to both Zosyn and Levaquin. Zosyn discontinued yesterday and we will continue IV Levaquin (currently on day #4) Repeat blood cultures pending Continues to improve clinically (2) Sepsis Current Visit: Yes Status: Acute Assessment and plan: improving continue IV abx therapy Qualifiers: Sepsis type: sepsis due to unspecified organism Qualified Code(s): A41.9 - Sepsis, unspecified organism (3) Liver lesion Current Visit: Yes Status: Acute Assessment and plan: -Incidental finding on CT chest -CT abd/pelvis reported benign-appearing posterior left hepatic lobe cystic mass but no evidence of liver abscess. Also heterogeneous partially visualized mass in the left anterior thigh musculature with mixed areas of hyperdensity and underlying fat which can be lipomatosis tumor including possible liposarcoma. MRI of left femur showed mass with fatty signal possibly benign lipomatous tumor but liposarcoma not excluded. Radiology recommends consultation with orthopedic oncologist for consideration of biopsy. We will refer to specialist as outpatient upon discharge -Liver biopsy reported: large septated cyst in the left lobe of the liver, this has increased in size since previous CT in 2004 (4) HTN (hypertension) Current Visit: No Status: Chronic Assessment and plan: BP within acceptable range continue home meds Qualifiers: Hypertension type: essential hypertension Qualified Code(s): I10 - Essential (primary) hypertension (5) SANJUANA (obstructive sleep apnea) Current Visit: No Status: Chronic Assessment and plan: continue CPAP at bedtime (6) GERD (gastroesophageal reflux disease) Current Visit: No Status: Chronic Qualifiers: Esophagitis presence: without esophagitis Qualified Code(s): K21.9 - Gastro -esophageal reflux disease without esophagitis (7) COPD (chronic obstructive pulmonary disease) Current Visit: Yes Status: Chronic Assessment and plan: continue bronchodilator support O2 supplementation not in acute exacerbation Qualifiers: COPD type: unspecified COPD Qualified Code(s): J44.9 - Chronic obstructive pulmonary disease, unspecified (8) DVT prophylaxis Current Visit: Yes Status: Acute Assessment and plan: Heparin SQ - Subjective Interval history: Patient seen and examined at bedside this morning. Says she is feeling better every day. Denies fevers/chills - Constitutional Vitals: Temp Pulse Resp BP Pulse Ox 97.9 F 94 17 139/86 98 02/23/17 07:46 02/23/17 07:46 02/23/17 07:46 02/23/17 07:46 02/23/17 07:46 General appearance: Present: A&O X 3, no acute distress, obese, answers questions appropriately - Respiratory Respiratory exam: Present: CTAB. Absent: accessory muscle use, rales, rhonchi, wheezes - Cardiovascular Cardiovascular exam: Present: RRR, +S1, +S2. Absent: diastolic murmur, gallop, rubs, systolic murmur - GI/Abdominal GI/Abdominal exam: Present: normal bowel sounds, soft, no peritoneal signs. Absent: distended, tenderness - Extremities Exam Extremities exam: Present: warm, radial pulses palpable and symmetrical. Absent : calf tenderness, normal inspection (Large incision along right anterior knee from patellar fixation 01/29/17, mild edema, wound is dry and mildly tender. Left shoulder also with incision which is non-erythematous, dry and mildly tender), pedal edema - Neurological Exam Neurological exam: Present: oriented X3, no focal deficits Internal Medicine: Result - Labs CBC & Chem 7: 02/23/17 03:14 02/23/17 03:14 Labs: Short CBC 02/23/17 Range/Units 03:14 WBC 9.7 (4.3-11.1) K/mcL Hgb 10.1 L (11.5-15.4) g/dL Hct 31.8 L (35.3-44.9) % Plt Count 209 (140-400) K/mcL Neutrophils # 8.2 (1.6-8.9) K/mcL BMP 02/23/17 03:14 Sodium 135 L Potassium 4.0 Chloride 101 Carbon Dioxide 30 H BUN 11 Creatinine 0.57 Glucose 91 Calcium 8.4 L - ABG Interpretation ABG results: PT/INR, D-dimer PT 18.0 Seconds (9.4-12.1) H 02/20/17 02:41 - VTE Documentation of Mechanical Device: Intermittent pneumatic compression device Consult Discharge Plan - Plan Referrals: Dion Whitman MD [Primary Care Provider] - 02/26/17 3:30 pm (HUSAM MCKEON WANTED ME TO LET YOU KNOW YOUR APPOINTMENT FOR 02-27-17 HAS BEEN CANCELLED, SHE ADDED IN ON THIS APPOINTMENT) <Marcus Schmitt - Last Filed: 02/23/17 15:33> Date of Encounter: 02/23/17 - Constitutional Vitals: Temp Pulse Resp BP Pulse Ox 97.9 F 99 20 135/74 95 02/23/17 13:04 02/23/17 13:04 02/23/17 13:04 02/23/17 13:04 02/23/17 13:04 Internal Medicine: Result - Labs CBC & Chem 7: 02/23/17 03:14 02/23/17 03:14 Labs: Short CBC 02/23/17 Range/Units 03:14 WBC 9.7 (4.3-11.1) K/mcL Hgb 10.1 L (11.5-15.4) g/dL Hct 31.8 L (35.3-44.9) % Plt Count 209 (140-400) K/mcL Neutrophils # 8.2 (1.6-8.9) K/mcL BMP 02/23/17 03:14 Sodium 135 L Potassium 4.0 Chloride 101 Carbon Dioxide 30 H BUN 11 Creatinine 0.57 Glucose 91 Calcium 8.4 L - ABG Interpretation ABG results: PT/INR, D-dimer PT 18.0 Seconds (9.4-12.1) H 02/20/17 02:41 - Attending Attestation I performed an independent interview and exam of this patient. Agree with the findings, assessment, and plan of Dr. Mcdaniels, medicine finance accounting internship. My input is reflected in his note. Patient has repeat blood cultures drawn and are pending.Surgery consult is still pending. Physical therapy has been requested to help get this patient up and increase ambulation, especially given her recent postop state. All else as outlined above.
[2017-02-23] MEDS: Budesonide/Formoterol 160/4.5 MDI IH SCH ×2 (10:51→20:02)
[2017-02-23] MEDS: LEVOFLOXACIN 750 MG/150 ML IVPB SCH (13:20)
[2017-02-23] MEDS: Ipratropium/Albuterol Neb 3 ML IH PRN (15:32)
--- NOTE | 2017-02-23 17:41 | Orthopedic Consult Note ---
Date of Encounter: 02/23/17 Time of Encounter: 17:00 Assessment and Plan (1) S/P ORIF (open reduction internal fixation) fracture Current Visit: Yes Status: Acute left open reduction internal fixation humerus proximal humerus, rotator cuff repair, open reduction internal fixation right patella. Date of surgery - From orthopedic surgical perspective no appearance of involvement from recent surgeries regarding her current bacteremia. Patient appears to be compliant with our instructions. Discussed case with Dr. Mora with respect to other findings regarding patient's MSK system. At this time will continue with patient on outpatient basis regarding her recent fracture fixations and will be available for further discussion as needed with regard to other findings. Recommend continued no shoulder motion to left shoulder. Ok to perform elbow and hand/wrist ROM however no strengthening. Continue right LE in locked extension TROM brace with minimal weight bearing. Continue pain medication as needed. Ice application to surgical sites as needed. Thank you for this consultation. (2) Glenoid fracture of shoulder Current Visit: Yes Status: Acute Glenoid fracture being discussed with Dr. Mora at this time however given her unstable nature at this time with regard to bacteremia will continue non- operatively for now until more stabilized. Qualifiers: Encounter type: initial encounter Fracture type: closed Laterality: left Qualified Code(s): S42.142A - Displaced fracture of glenoid cavity of scapula , left shoulder, initial encounter for closed fracture; S42.152A - Displaced fracture of neck of scapula, left shoulder, initial encounter for closed fracture; S42.152A - Displaced fracture of neck of scapula, left shoulder, initial encounter for closed fracture History of Present Illness Chief complaint: s/p right patella orif and left humerus orif HPI: Ms. Cook is a 66 year old female status post left open reduction internal fixation humerus proximal humerus, rotator cuff repair, open reduction internal fixation right patella. Date of surgery -01/29/17. She presents now to hospital with bacteremia. Final blood culture positive for Klebsiella pneumoniae which is sensitive to both Zosyn and Levaquin. Patient denies concerns regarding patella or humerus. She admits to continued use of sling and TROM brace as directed. She has thus far been compliant with outpatient follow up regarding these surgeries. On exam patient getting from bed to chair with assistance of COMMISSIONED POLICE OFFICER. Patient in sling to LUE and TROM in locked extension to RLE in proper positioning. She has mild dull erythema appearing as eccymosis to lateral aspect right patella. Incision healing appropriately. Honeycomb opsite still intact to right knee however has noticeable breaks in bandage. No calf tenderness on exam. 1+ pitting edema noted to b/l lower extremities to the knee slightly more prominent to RLE. Foot and ankle ROM intact. Neurovascularly intact w/ respect to b/l lower extremities. Left shoulder reveals appropriately healing incision with no appearance of infection with honeycomb opsite still in place. Patient denies pain to palpation of this region. Neurovascualrly intact to b/l upper extremities. CT/CT knee RT w con IMPRESSION: 1. Comminuted, displaced fracture through the patella, stable. There is an associated right knee effusion with adjacent soft tissue swelling and nonspecific subcutaneous edema surrounding the right knee. 2. No other fractures are identified. D/ / 02/21/2017 07:33:51 Stu Plaza MD / mable Interpreting Provider: Stu Plaza MD R #: [id number] CT/CT shoulder LT w con IMPRESSION: 1. ORIF of the proximal left humeral head and neck fractures. There is a Hill-Sachs fracture noted. 2. Fracture noted through the inferior aspect of the left glenoid. 3. Atherosclerotic disease. D/ / 02/21/2017 07:57:07 Stu Plaza MD / mable Interpreting Provider: Stu Plaza MD From orthopedic surgical perspective no appearance of involvement from recent surgeries regarding her current bacteremia. Patient appears to be compliant with our instructions. Glenoid fracture being discussed with Dr. Mora at this time however given her unstable nature at this time with regard to bacteremia will continue non-operatively for now until more stabilized. Discussed case with Dr. Mora with respect to other findings regarding patient's MSK system. At this time will continue with patient on outpatient basis regarding her recent fracture fixations and will be available for further discussion as needed with regard to other findings. Recommend continued no shoulder motion to left shoulder. Ok to perform elbow and hand/wrist ROM however no strengthening. Continue right LE in locked extension TROM brace with minimal weight bearing. Continue pain medication as needed. Ice application to surgical sites as needed. Thank you for this consultation. Past Med Surg Social Fam HX - Past Medical History Medical history: COPD, coronary artery disease, GERD, hyperlipidemia, hypertension, myocardial infarction Psychiatric history: anxiety - Past Surgical History Surgical History: hysterectomy - Social History Smoking Status: Current every day smoker (she quit but started smoking again) Smokeless Tobacco Status: No Alcohol use: none Drug use: none - Family History Mother Living Status: Hx Family Cardiac Disorders: Yes Hx Family Cancer: Yes (colon ca) Hx Family Neurologic Disorders: Yes (cva) Hx Family HEENT Disorders: Yes (macular degeneration) Father Adopted: No Family Member Ethnicity: Non- Living Status: Hx Family Cardiac Disorders: Yes Hx Family Respiratory Disorders: No Hx Family Cancer: Yes (colon ca 1979) Hx Family GI Disorders: No Hx Family Endocrine Disorder: No Hx Family Neuromuscular Disorders: No Hx Family Neurologic Disorders: Yes (CVA with left side weakness) Hx Family HEENT Disorders: Yes (macular degeneration) Hx Family Autoimmune Disorders: No Medications and Allergies Ipratropium/Albuterol Neb [Duoneb] 3 ml IH QID PRN 08/12/15 [History] Omeprazole [PriLOSEC] 20 mg PO DAILY 08/12/15 [History] Aspirin 81 mg PO DAILY tab.chew 04/06/16 [Rx] Atorvastatin [Lipitor] 40 mg PO HS 01/26/17 [History] Fluticasone/Salmeterol [Advair 500-50 Diskus] 1 each IH BID 01/26/17 [History] Metoprolol Succinate 100 mg PO DAILY 01/26/17 [History] OxyCODONE Immed Rel [Roxicodone 5 MG] 5 mg PO Q6HR PRN #28 tablet 01/29/17 [Rx] ALPRAZolam [Xanax 0.25 MG Tablet] 0.25 mg PO Q8HR PRN 02/01/17 [History] Docusate [Colace] 100 mg PO BID capsule 02/01/17 [Rx] Ergocalciferol (VITAMIN D2) [Drisdol (50,000 Unit)] 50,000 unit PO QWEEK capsule 02/01/17 [Rx] Losartan [Cozaar] 100 mg PO DAILY tablet 02/01/17 [Rx] Magnesium Oxide [Mag-Ox] 400 mg PO BID tablet 02/01/17 [Rx] Temazepam [Restoril] 15 mg PO HS PRN capsule 02/01/17 [Rx] Bumetanide [Bumex] 1.5 mg PO DAILY #45 tablet 02/16/17 [Rx] Potassium Chloride 10 meq PO DAILY #30 tab.er.prt 02/16/17 [Rx] 3 Allergy/AdvReac Type Severity Reaction Status Date / Time No Known Allergies Allergy Verified 08/09/15 16:58 All Systems Reviewed: A 10-system review of systems was performed and is negative for pertinent findings except as documented above in the HPI. Physical Exam - Constitutional Vitals: Temp Pulse Resp BP Pulse Ox 98.5 F 102 22 139/78 100 02/23/17 15:46 02/23/17 15:46 02/23/17 15:46 02/23/17 15:46 02/23/17 15:46 Results - Labs Result Diagrams: 02/24/17 03:40 02/24/17 03:40 Labs: Abnormal lab results RBC 3.24 M/mcL (3.82-4.97) L 02/23/17 03:14 Hgb 10.1 g/dL (11.5-15.4) L 02/23/17 03:14 Hct 31.8 % (35.3-44.9) L 02/23/17 03:14 MPV 9.3 fL (9.4-12.4) L 02/23/17 03:14 PT 18.0 Seconds (9.4-12.1) H 02/20/17 02:41 VBG pCO2 62 mmHg (41-51) H 02/23/17 04:56 VBG pO2 216 mmHg (25-50) H 02/23/17 04:56 VBG HCO3 32 mEq/L (21-27) H 02/23/17 04:56 VBG Hematocrit 23.0 % (35.3-44.9) L 02/21/17 16:02 Sodium 135 mEq/L (136-145) L 02/23/17 03:14 Carbon Dioxide 30 mEq/L (19-29) H 02/23/17 03:14 Whole Bld Glucose 125 mg/dl (65-95) H 02/21/17 16:02 POC Glucose 156 (58-89) H 02/20/17 07:27 Calculated Osmolality 279 (280-300) L 02/23/17 03:14 Calcium 8.4 mg/dL (8.6-10.8) L 02/23/17 03:14 Venous Ioniz Calcium 1.13 mmol/L (1.15-1.35) L 02/23/17 04:56 Magnesium 1.4 mg/dL (1.6-2.6) L 02/23/17 04:40 Direct Bilirubin 0.6 mg/dL (0.0-0.5) H 02/19/17 16:44 C-Reactive Protein 128 mg/L (Less than 5) H 02/19/17 16:44 Serum Total Protein 5.6 g/dL (6.0-8.3) L 02/20/17 02:41 Albumin 2.3 g/dL (3.5-5.0) L 02/20/17 02:41 Albumin/Globulin Ratio 0.7 (1.1-2.2) L 02/20/17 02:41 TSH 0.190 mcIU/mL (0.350-4.840) L 02/20/17 02:41 Urine Protein 30 mg/dL (Neg-Trace) H 02/19/17 16:35 Urine Urobilinogen 4.0 mg/dL (Normal) H 02/19/17 16:35 Ur Squamous Epith Cells Many per lpf (None-Few) H 02/19/17 16:35 Urine Opiates Screen Positive ng/mL (Pdlshx=454) H 02/19/17 16:35 U Benzodiazepines Scrn Positive ng/mL (Pmeqoh=043) H 02/19/17 16:35 Enterobacteriac sp PCR DETECTED (Not Detect) A 02/19/17 16:44 Klebsiella pneumoniae DETECTED (Not Detect) A 02/19/17 16:44 H & H 02/23/17 Range/Units 03:14 Hgb 10.1 L (11.5-15.4) g/dL Hct 31.8 L (35.3-44.9) % All other labs normal. Consult Discharge Plan - Plan Referrals: Dion Whitman MD [Primary Care Provider] - 02/26/17 3:30 pm (HUSAM MCKEON WANTED ME TO LET YOU KNOW YOUR APPOINTMENT FOR 02-27-17 HAS BEEN CANCELLED, SHE ADDED IN ON THIS APPOINTMENT) Tiffany Gottlieb, PAC [Physician Desktop Publishing Associate] - 03/02/17 8:15 am
[2017-02-24] MEDS: ALPRAZolam 0.25 MG TABLET PO PRN (00:04)
[2017-02-24] MEDS: *HR* OxyCODONE Immed Rel 5 MG TABLET PO PRN ×3 (03:33→17:22)
[2017-02-24 04:15] LABS: Basophils % 0.2 %; Eosinophils # 0.1 K/mcL (0.0-0.6); Eosinophils % 0.7 %; Hematocrit 33.7 % (35.3-44.9); Hemoglobin 11.1 g/dL (11.5-15.4); Immature Granulocytes % 0.8 % (0-4); Lymphocytes # 0.6 K/mcL (0.6-4.6); Mean Corpuscular HGB Conc 32.9 g/dL (31.6-35.5); Mean Corpuscular Hemoglobin 31.4 pg (28.0-33.3); Mean Corpuscular Volume 95.2 fL (83.0-100.0); Monocytes # 0.5 K/mcL (0.0-1.3); Monocytes % 4.5 %; Neutrophils # 10.2 K/mcL (1.6-8.9); Platelet Count 179 K/mcL (140-400); Red Blood Count 3.54 M/mcL (3.82-4.97); Red Cell Distribution Width 12.7 % (11.5-14.5); Segmented Neutrophils % 88.8 %
[2017-02-24] MEDS ORDERED: Metoprolol XL (24 HR) Succ 50 MG TAB.ER.24H PO ONE (04:15)
[2017-02-24] MEDS: Ipratropium/Albuterol Neb 3 ML IH PRN (04:16)
[2017-02-24 04:23] LABS: VBG HCO3 38 mEq/L (21-27); VBG Ionized Calcium 1.13 mmol/L (1.15-1.35); VBG PCO2 63 mmHg (41-51); VBG PH 7.39 pH Units (7.32-7.42); VBG PO2 78 mmHg (25-50)
[2017-02-24 04:33] LABS: BUN/Creatinine Ratio 14 (6-26); Blood Urea Nitrogen 8 mg/dL (7-20); Calcium 8.6 mg/dL (8.6-10.8); Carbon Dioxide 32 mEq/L (19-29); Chloride 94 mEq/L (98-109); Glucose 123 mg/dL (70-99); Osmolality,Calculated 278 (280-300); Potassium 3.4 mEq/L (3.5-4.5); Sodium 134 mEq/L (136-145); eGFR For African Americans > 60 (> 60); eGFR For Non-African Americans > 60 (> 60)
[2017-02-24 04:34] LABS: Magnesium 1.3 mg/dL (1.6-2.6); Phosphorous 2.4 mg/dL (2.3-4.7)
[2017-02-24] MEDS: *HR* Heparin 5,000 UNIT/ML VIAL SQ SCH ×2 (06:02→17:22)
[2017-02-24] MEDS: Budesonide/Formoterol 160/4.5 MDI IH SCH ×2 (07:39→20:48)
[2017-02-24] MEDS: Magnesium Oxide 400 MG TABLET PO SCH ×2 (09:32→19:40)
[2017-02-24] MEDS: Aspirin 81 MG TAB.CHEW PO SCH (09:32)
[2017-02-24] MEDS: Metoprolol XL (24 HR) Succ 50 MG TAB.ER.24H PO SCH (09:32)
--- NOTE | 2017-02-24 11:33 | Internal Med Progress Note ---
<Marcus Schmitt - Last Filed: 02/24/17 16:35> Date of Encounter: 02/24/17 - Constitutional Vitals: Temp Pulse Resp BP Pulse Ox 98.4 F 106 16 136/78 92 02/24/17 11:54 02/24/17 11:54 02/24/17 11:54 02/24/17 11:54 02/24/17 11:54 Internal Medicine: Result - Labs CBC & Chem 7: 02/24/17 03:40 02/24/17 09:57 Labs: Short CBC 02/24/17 Range/Units 03:40 WBC 11.4 H (4.3-11.1) K/mcL Hgb 11.1 L (11.5-15.4) g/dL Hct 33.7 L (35.3-44.9) % Plt Count 179 (140-400) K/mcL Neutrophils # 10.2 H (1.6-8.9) K/mcL BMP 02/24/17 02/24/17 03:40 09:57 Sodium 134 L Potassium 3.4 L 4.0 Chloride 94 L Carbon Dioxide 32 H BUN 8 Creatinine 0.59 Glucose 123 H Calcium 8.6 - ABG Interpretation ABG results: PT/INR, D-dimer PT 18.0 Seconds (9.4-12.1) H 02/20/17 02:41 - Impressions Impressions Chest X-Ray 02/24/17 08:13 IMPRESSION: Limited chest x-ray with suggestion of developing faint left lower lobe airspace disease and possible trace pleural effusion D/ / Luan Macdonald MD / Luan Macdonald MD Interpreting Provider: Luan Macdonald MD Consult Discharge Plan - Plan Referrals: Dion Whitman MD [Primary Care Provider] - 02/26/17 3:30 pm (HUSAM MCKEON WANTED ME TO LET YOU KNOW YOUR APPOINTMENT FOR 02-27-17 HAS BEEN CANCELLED, SHE ADDED IN ON THIS APPOINTMENT) Tiffany Gottlieb, PAC [Physician [employer] Chemist] - 03/02/17 8:15 am - Attending Attestation I performed an independent interview and exam of this patient. I discussed the case with Dr. Mcdaniels, resident. I agree with his findings, assessment and plan as outlined above. Or to pick surgery input is also appreciated. They do not believe there is any evidence of joint involvement. She does have assisted her liver but it does not appear to be an abscess. Apparently interventional radiology was unable to perform an aspirate. Thus far the etiology of her bacteremia is unclear. We will need to closely follow. She did have a low- grade temperature this morning. Repeat blood cultures are negative thus far. If she continues to have fever or if her white count continues to rise or any clinical decline, we will broaden antibiotics. Will await infectious disease input on Sunday. Agent was also given some Lasix a day for possible volume overload. We will continue to closely monitor. <Ronen Mcdaniels - Last Filed: 02/24/17 16:52> Date of Encounter: 02/24/17 Time of Encounter: 08:00 - Assessment and plan (1) Bacteremia Current Visit: Yes Status: Acute Assessment and plan: Unclear etiology. Chest imaging normal, unlikely urinary tract source. Recent surgical sites appropriate on exam. Final initial blood culture positive for Klebsiella pneumoniae which is sensitive to both Zosyn and Levaquin. Zosyn discontinued yesterday and we will continue IV Levaquin (currently on day #5). Temperature increasing, mild leukocytosis today Repeat blood cultures pending, called lab and they verified that they received blood samples Verified with patient center that there is currently no infectious disease coverage in the hospital. Will check back Sunday as nurse practitioner may be available at that time (2) Sepsis Current Visit: Yes Status: Acute Assessment and plan: continue IV abx therapy Qualifiers: Sepsis type: sepsis due to unspecified organism Qualified Code(s): A41.9 - Sepsis, unspecified organism (3) Liver lesion Current Visit: Yes Status: Acute Assessment and plan: -Incidental finding on CT chest -CT abd/pelvis reported benign-appearing posterior left hepatic lobe cystic mass but no evidence of liver abscess. Also heterogeneous partially visualized mass in the left anterior thigh musculature with mixed areas of hyperdensity and underlying fat which can be lipomatosis tumor including possible liposarcoma. MRI of left femur showed mass with fatty signal possibly benign lipomatous tumor but liposarcoma not excluded. Radiology recommends consultation with orthopedic oncologist for consideration of biopsy. We will refer to specialist as outpatient upon discharge -Liver biopsy reported: large septated cyst in the left lobe of the liver, this has increased in size since previous CT in 2004 (4) HTN (hypertension) Current Visit: No Status: Chronic Assessment and plan: BP increasing this morning Will recheck after morning medications and consider increasing doseage vs additional agent Qualifiers: Hypertension type: essential hypertension Qualified Code(s): I10 - Essential (primary) hypertension (5) SANJUANA (obstructive sleep apnea) Current Visit: No Status: Chronic Assessment and plan: continue CPAP at bedtime (6) GERD (gastroesophageal reflux disease) Current Visit: No Status: Chronic Assessment and plan: Patient complaining of epigastric pain this morning We will reassess after administration of PPI Qualifiers: Esophagitis presence: without esophagitis Qualified Code(s): K21.9 - Gastro -esophageal reflux disease without esophagitis (7) COPD (chronic obstructive pulmonary disease) Current Visit: Yes Status: Chronic Assessment and plan: continue bronchodilator support O2 supplementation not in acute exacerbation Qualifiers: COPD type: unspecified COPD Qualified Code(s): J44.9 - Chronic obstructive pulmonary disease, unspecified (8) DVT prophylaxis Current Visit: Yes Status: Acute Assessment and plan: Heparin SQ - Subjective Interval history: Patient seen and examined at bedside this morning. Today she is complaining of shortness of breath and general malaise - Constitutional Vitals: Temp Pulse Resp BP Pulse Ox 99.3 F 116 16 157/99 94 02/24/17 07:35 02/24/17 07:35 02/24/17 07:39 02/24/17 07:39 02/24/17 07:39 General appearance: Present: A&O X 3, no acute distress, obese, answers questions appropriately - Respiratory Respiratory exam: Present: rales (diffuse), wheezes. Absent: accessory muscle use, respiratory distress, tachypnea - Cardiovascular Cardiovascular exam: Present: RRR, +S1, +S2. Absent: diastolic murmur, gallop, rubs, systolic murmur - Extremities Exam Extremities exam: Present: warm, radial pulses palpable and symmetrical. Absent : normal inspection ((Large incision along right anterior knee from patellar fixation 01/29/17, mild edema, wound is dry and mildly tender. Left shoulder also with incision which is non-erythematous, dry and mildly tender), pedal edema) - Neurological Exam Neurological exam: Present: alert, oriented X3, no focal deficits Internal Medicine: Result - Labs CBC & Chem 7: 02/24/17 03:40 02/24/17 09:57 Labs: Short CBC 02/24/17 Range/Units 03:40 WBC 11.4 H (4.3-11.1) K/mcL Hgb 11.1 L (11.5-15.4) g/dL Hct 33.7 L (35.3-44.9) % Plt Count 179 (140-400) K/mcL Neutrophils # 10.2 H (1.6-8.9) K/mcL BMP 02/24/17 02/24/17 03:40 09:57 Sodium 134 L Potassium 3.4 L 4.0 Chloride 94 L Carbon Dioxide 32 H BUN 8 Creatinine 0.59 Glucose 123 H Calcium 8.6 - ABG Interpretation ABG results: PT/INR, D-dimer PT 18.0 Seconds (9.4-12.1) H 02/20/17 02:41 - Impressions Impressions Chest X-Ray 02/24/17 08:13 IMPRESSION: Limited chest x-ray with suggestion of developing faint left lower lobe airspace disease and possible trace pleural effusion D/ / Luan Macdonald MD / Luan Macdonald MD Interpreting Provider: Luan Macdonald MD - VTE Documentation of Mechanical Device: Intermittent pneumatic compression device
[2017-02-24] MEDS ORDERED: Furosemide 20 MG/2 ML VIAL IVP ONE (15:40)
[2017-02-24] MEDS: LEVOFLOXACIN 750 MG/150 ML IVPB SCH (18:31)
[2017-02-25] MEDS: Ipratropium/Albuterol Neb 3 ML IH PRN (04:58)
[2017-02-25] MEDS: *HR* Heparin 5,000 UNIT/ML VIAL SQ SCH ×2 (05:03→16:39)
[2017-02-25 05:37] LABS: Basophils % 0.2 %; Eosinophils # 0.1 K/mcL (0.0-0.6); Eosinophils % 0.8 %; Hematocrit 32.7 % (35.3-44.9); Hemoglobin 10.8 g/dL (11.5-15.4); Immature Granulocytes % 1.9 % (0-4); Lymphocytes # 1.3 K/mcL (0.6-4.6); Lymphocytes % 7.7 %; Mean Corpuscular Hemoglobin 31.1 pg (28.0-33.3); Mean Corpuscular Volume 94.2 fL (83.0-100.0); Mean Platelet Volume 10.3 fL (9.4-12.4); Monocytes # 1.1 K/mcL (0.0-1.3); Monocytes % 6.1 %; Neutrophils # 14.4 K/mcL (1.6-8.9); Platelet Count 187 K/mcL (140-400); Red Blood Count 3.47 M/mcL (3.82-4.97); Red Cell Distribution Width 12.8 % (11.5-14.5); Segmented Neutrophils % 83.3 %
[2017-02-25 05:51] LABS: VBG Ionized Calcium 1.11 mmol/L (1.15-1.35); VBG PH 7.38 pH Units (7.32-7.42)
[2017-02-25 05:57] LABS: BUN/Creatinine Ratio 20 (6-26); Blood Urea Nitrogen 12 mg/dL (7-20); Calcium 8.3 mg/dL (8.6-10.8); Carbon Dioxide 34 mEq/L (19-29); Chloride 92 mEq/L (98-109); Glucose 104 mg/dL (70-99); Magnesium 1.7 mg/dL (1.6-2.6); Osmolality,Calculated 276 (280-300); Phosphorous 3.1 mg/dL (2.3-4.7); Potassium 3.6 mEq/L (3.5-4.5); Sodium 133 mEq/L (136-145); eGFR For African Americans > 60 (> 60); eGFR For Non-African Americans > 60 (> 60)
[2017-02-25] MEDS: Metoprolol XL (24 HR) Succ 50 MG TAB.ER.24H PO SCH (08:36)
[2017-02-25] MEDS: Magnesium Oxide 400 MG TABLET PO SCH ×2 (08:36→21:02)
[2017-02-25] MEDS: Aspirin 81 MG TAB.CHEW PO SCH (08:36)
[2017-02-25] MEDS: Budesonide/Formoterol 160/4.5 MDI IH SCH ×2 (08:53→20:40)
--- NOTE | 2017-02-25 10:58 | Internal Med Progress Note ---
<Ronen Mcdaniels - Last Filed: 02/25/17 11:28> Date of Encounter: 02/25/17 Time of Encounter: 10:42 - Assessment and plan (1) Bacteremia Current Visit: Yes Status: Acute Assessment and plan: Unclear etiology. Chest imaging initially normal but repeat CXR showed possible PNA. Unlikely urinary tract source. Recent surgical sites appropriate on exam. Final initial blood culture positive for Klebsiella pneumoniae which is sensitive to both Zosyn and Levaquin. Zosyn discontinued and IV Levaquin continued (currently on day #). Repeat blood cultures showed no growth however significant worsening of Leukocytosis today Verified with paging center that there is currently no infectious disease coverage in the hospital. Will check back Sunday as nurse practitioner may be available at that time (2) Sepsis Current Visit: Yes Status: Acute Assessment and plan: will broaden abx coverage with Zosyn given CXR findings, respiratory worsening, and WBC count today of 17.3 Qualifiers: Sepsis type: sepsis due to unspecified organism Qualified Code(s): A41.9 - Sepsis, unspecified organism (3) Liver lesion Current Visit: Yes Status: Acute Assessment and plan: -Incidental finding on CT chest -CT abd/pelvis reported benign-appearing posterior left hepatic lobe cystic mass but no evidence of liver abscess. Also heterogeneous partially visualized mass in the left anterior thigh musculature with mixed areas of hyperdensity and underlying fat which can be lipomatosis tumor including possible liposarcoma. MRI of left femur showed mass with fatty signal possibly benign lipomatous tumor but liposarcoma not excluded. Radiology recommends consultation with orthopedic oncologist for consideration of biopsy. We will refer to specialist as outpatient upon discharge -Liver biopsy reported: large septated cyst in the left lobe of the liver, this has increased in size since previous CT in 2004 (4) HTN (hypertension) Current Visit: No Status: Chronic Assessment and plan: BP stable Qualifiers: Hypertension type: essential hypertension Qualified Code(s): I10 - Essential (primary) hypertension (5) SANJUANA (obstructive sleep apnea) Current Visit: No Status: Chronic Assessment and plan: continue CPAP at bedtime (6) GERD (gastroesophageal reflux disease) Current Visit: No Status: Chronic Assessment and plan: Increased omeprazole, pt sx improving Qualifiers: Esophagitis presence: without esophagitis Qualified Code(s): K21.9 - Gastro -esophageal reflux disease without esophagitis (7) COPD (chronic obstructive pulmonary disease) Current Visit: Yes Status: Chronic Assessment and plan: continue bronchodilator support O2 supplementation not in acute exacerbation Qualifiers: COPD type: unspecified COPD Qualified Code(s): J44.9 - Chronic obstructive pulmonary disease, unspecified (8) DVT prophylaxis Current Visit: Yes Status: Acute Assessment and plan: Heparin SQ, verified in EMR that patient is receiving - Subjective Interval history: Patient seen and examined at bedside this morning. Her shortness of breath and general malaise is much better today. Her abdominal discomfort is also improving although still present. No chest pain or other new complaints - Constitutional Vitals: Temp Pulse Resp BP Pulse Ox 99.0 F 95 18 137/87 93 02/25/17 08:22 02/25/17 08:50 02/25/17 08:53 02/25/17 08:22 02/25/17 08:53 General appearance: Present: A&O X 3, no acute distress, obese, answers questions appropriately - Respiratory Respiratory exam: Present: rales (diffuse), wheezes. Absent: accessory muscle use, respiratory distress, tachypnea - Cardiovascular Cardiovascular exam: Present: RRR, +S1, +S2. Absent: diastolic murmur, gallop, rubs, systolic murmur - Extremities Exam Extremities exam: Present: pedal edema, warm, radial pulses palpable and symmetrical. Absent: normal inspection (Large incision along right anterior knee from patellar fixation 01/29/17, mild edema, wound is dry and mildly tender. Left shoulder also with incision which is non-erythematous, dry and mildly tender) - Neurological Exam Neurological exam: Present: alert, oriented X3, no focal deficits Internal Medicine: Result - Labs CBC & Chem 7: 02/25/17 05:29 02/25/17 05:29 Labs: Short CBC 02/25/17 Range/Units 05:29 WBC 17.3 H D (4.3-11.1) K/mcL Hgb 10.8 L (11.5-15.4) g/dL Hct 32.7 L (35.3-44.9) % Plt Count 187 (140-400) K/mcL Neutrophils # 14.4 H (1.6-8.9) K/mcL BMP 02/25/17 05:29 Sodium 133 L Potassium 3.6 Chloride 92 L Carbon Dioxide 34 H BUN 12 Creatinine 0.59 Glucose 104 H Calcium 8.3 L - ABG Interpretation ABG results: PT/INR, D-dimer PT 18.0 Seconds (9.4-12.1) H 02/20/17 02:41 - VTE Documentation of Mechanical Device: Intermittent pneumatic compression device Consult Discharge Plan - Plan Referrals: Dion Whitman MD [Primary Care Provider] - 02/26/17 3:30 pm (HUSAM VANCEHEAD WANTED ME TO LET YOU KNOW YOUR APPOINTMENT FOR 02-27-17 HAS BEEN CANCELLED, SHE ADDED IN ON THIS APPOINTMENT) Tiffany Gottlieb, PAC [Physician [employer] Operator] - 03/02/17 8:15 am <Marcus Schmitt - Last Filed: 02/25/17 12:17> Date of Encounter: 02/25/17 - Constitutional Vitals: Temp Pulse Resp BP Pulse Ox 99.2 F 96 22 132/77 92 02/25/17 12:07 02/25/17 12:07 02/25/17 12:07 02/25/17 12:07 02/25/17 12:07 Internal Medicine: Result - Labs CBC & Chem 7: 02/25/17 05:29 02/25/17 05:29 Labs: Short CBC 02/25/17 Range/Units 05:29 WBC 17.3 H D (4.3-11.1) K/mcL Hgb 10.8 L (11.5-15.4) g/dL Hct 32.7 L (35.3-44.9) % Plt Count 187 (140-400) K/mcL Neutrophils # 14.4 H (1.6-8.9) K/mcL BMP 02/25/17 05:29 Sodium 133 L Potassium 3.6 Chloride 92 L Carbon Dioxide 34 H BUN 12 Creatinine 0.59 Glucose 104 H Calcium 8.3 L - ABG Interpretation ABG results: PT/INR, D-dimer PT 18.0 Seconds (9.4-12.1) H 02/20/17 02:41 - Attending Attestation I formulated independent history and physical of this patient. She states she feels much better today. More energetic. Her pain is improved. She has however had a low-grade fever. Her white blood cell count has increased significantly today. Antibiotics and change back to Zosyn from Levaquin. Repeat blood cultures have been negative. Orthopedic surgery does not feel there is infection in her recently replaced joint. Will ask for infectious disease consultation in the morning. Need to closely monitor. 100% rule out a liver abscess although per in interventional radiology this was not able to be biopsied presently. Will consider reimaging her belly if fevers persist, and plan to discuss with infectious disease. She does have a cough but her CAT scan did not show any evidence of pneumonia which would be another potential source for her Klebsiella. Of note however, her chest x-ray yesterday did show possibly a left lower lobe airspace disease. Her urinalysis has been negative. Continue to closely follow. Consider repeat imaging of her chest abdomen and pelvis if fever and/or leukocytosis persists or does not improve. Per review of up-to-date, patient very unlikely to have endocarditis with Klebsiella.
[2017-02-25] MEDS: Piperacillin/Tazobactam 3.375 GM in 0.9 % Sodium Chloride Mini Bag 100 ML IVPB SCH ×2 (12:37→21:01)
[2017-02-25] MEDS: *HR* OxyCODONE Immed Rel 5 MG TABLET PO PRN ×2 (13:17→21:01)
[2017-02-25 13:31] LABS: Magnesium 1.9 mg/dL (1.6-2.6); Potassium 3.9 mEq/L (3.5-4.5)
[2017-02-25] MEDS ORDERED: Vancomycin 1,500 MG in D5% in Water 250 ML IVPB SCH (14:31)
[2017-02-25 21:09] LABS: Potassium 3.8 mEq/L (3.5-4.5)
[2017-02-25] MEDS: Vancomycin 1,000 MG in D5% in Water 250 ML IVPB SCH (22:36)
[2017-02-25] MEDS: ALPRAZolam 0.25 MG TABLET PO PRN (23:39)
[2017-02-26] MEDS: Piperacillin/Tazobactam 3.375 GM in 0.9 % Sodium Chloride Mini Bag 100 ML IVPB SCH ×3 (04:02→19:57)
[2017-02-26 05:28] LABS: Basophils % 0.3 %; Eosinophils # 0.4 K/mcL (0.0-0.6); Eosinophils % 2.6 %; Hematocrit 30.1 % (35.3-44.9); Hemoglobin 9.8 g/dL (11.5-15.4); Immature Granulocytes % 4.2 % (0-4); Immature Platelets 6.3 % (1.1-6.1); Lymphocytes # 1.4 K/mcL (0.6-4.6); Lymphocytes % 10.4 %; Mean Corpuscular HGB Conc 32.6 g/dL (31.6-35.5); Mean Corpuscular Hemoglobin 31.2 pg (28.0-33.3); Mean Corpuscular Volume 95.9 fL (83.0-100.0); Mean Platelet Volume 10.1 fL (9.4-12.4); Monocytes # 1.3 K/mcL (0.0-1.3); Monocytes % 9.1 %; Neutrophils # 10.2 K/mcL (1.6-8.9); Platelet Count 228 K/mcL (140-400); Red Blood Count 3.14 M/mcL (3.82-4.97); Red Cell Distribution Width 13.1 % (11.5-14.5); Segmented Neutrophils % 73.4 %
[2017-02-26 05:46] LABS: BUN/Creatinine Ratio 25 (6-26); Blood Urea Nitrogen 14 mg/dL (7-20); Carbon Dioxide 36 mEq/L (19-29); Chloride 93 mEq/L (98-109); Potassium 4.2 mEq/L (3.5-4.5); Sodium 132 mEq/L (136-145)
[2017-02-26 05:47] LABS: Calcium 8.4 mg/dL (8.6-10.8); Glucose 102 mg/dL (70-99); Osmolality,Calculated 275 (280-300); eGFR For African Americans > 60 (> 60); eGFR For Non-African Americans > 60 (> 60)
[2017-02-26] MEDS: *HR* Heparin 5,000 UNIT/ML VIAL SQ SCH ×2 (06:21→17:44)
[2017-02-26] MEDS: *HR* OxyCODONE Immed Rel 5 MG TABLET PO PRN ×2 (08:23→17:43)
[2017-02-26] MEDS: Magnesium Oxide 400 MG TABLET PO SCH ×2 (08:23→19:58)
[2017-02-26] MEDS: Vancomycin 1,000 MG in D5% in Water 250 ML IVPB SCH ×2 (08:23→23:15)
[2017-02-26] MEDS: Aspirin 81 MG TAB.CHEW PO SCH (08:23)
[2017-02-26] MEDS: Metoprolol XL (24 HR) Succ 50 MG TAB.ER.24H PO SCH (08:23)
[2017-02-26] MEDS: Budesonide/Formoterol 160/4.5 MDI IH SCH ×2 (08:25→20:47)
--- NOTE | 2017-02-26 09:43 | Internal Med Progress Note ---
<EnedeliaRonen boss - Last Filed: 02/26/17 09:40> Date of Encounter: 02/26/17 Time of Encounter: 09:43 - Assessment and plan (1) Bacteremia Current Visit: Yes Status: Acute Assessment and plan: - Initial blood culture + for Klebsiella, unclear etiology - Initial CXR normal. UA not concerning for UTI and patient without urinary tract sx - Pt had orthopedic surgeries 01/29/17 (left shoulder ORIF and right knee patella fixation) but surgical sites appear to be healing appropriately. Evaluated by ortho this hospitalization who was not concerned about surgical sites as source - Patient initially started on empiric antibiotics with Vancomycin + Zosyn but shortly transitioned to IV levaquin. Culture showed Klebsiella sensitive to levaquin - Repeat blood culture obtained 02/23 returned negative for any growth - Patient began to decline clinically and leukocytes began increasing 02/24. CXR repeated at this time and showed possible developing PNA. Vanc + Zosyn restarted. Valerio catheter removed - Patient appears clinically much improved this morning, leukocytes decreased from 17.3 to 13.9 this morning (2) Sepsis Current Visit: Yes Status: Acute Assessment and plan: Antibiotic coverage broadened with Zosyn + Vanco yesterday given CXR findings, respiratory worsening, and WBC count of 17.3 Infectious disease has been consulted, appreciate input Qualifiers: Sepsis type: sepsis due to unspecified organism Qualified Code(s): A41.9 - Sepsis, unspecified organism (3) Liver lesion Current Visit: Yes Status: Acute Assessment and plan: -Incidental finding on CT chest -CT abd/pelvis reported benign-appearing posterior left hepatic lobe cystic mass but no evidence of liver abscess. Also heterogeneous partially visualized mass in the left anterior thigh musculature with mixed areas of hyperdensity and underlying fat which can be lipomatosis tumor including possible liposarcoma. MRI of left femur showed mass with fatty signal possibly benign lipomatous tumor but liposarcoma not excluded. Radiology recommends consultation with orthopedic oncologist for consideration of biopsy. We will refer to specialist as outpatient upon discharge -Liver biopsy reported: large septated cyst in the left lobe of the liver, this has increased in size since previous CT in 2004 (4) HTN (hypertension) Current Visit: No Status: Chronic Assessment and plan: BP stable Qualifiers: Hypertension type: essential hypertension Qualified Code(s): I10 - Essential (primary) hypertension (5) SANJUANA (obstructive sleep apnea) Current Visit: No Status: Chronic Assessment and plan: continue CPAP at bedtime (6) GERD (gastroesophageal reflux disease) Current Visit: No Status: Chronic Assessment and plan: Patient developed epigastric discomfort 02/24 Increased omeprazole, pt sx improving Qualifiers: Esophagitis presence: without esophagitis Qualified Code(s): K21.9 - Gastro -esophageal reflux disease without esophagitis (7) COPD (chronic obstructive pulmonary disease) Current Visit: Yes Status: Chronic Assessment and plan: continue bronchodilator support O2 supplementation not in acute exacerbation Qualifiers: COPD type: unspecified COPD Qualified Code(s): J44.9 - Chronic obstructive pulmonary disease, unspecified (8) DVT prophylaxis Current Visit: Yes Status: Acute Assessment and plan: Heparin SQ - Subjective Interval history: Patient seen and examined at bedside this morning. Her shortness of breath and general malaise continues to improve. Her abdominal discomfort is also improving although still present. No chest pain or other new complaints - Constitutional Vitals: Temp Pulse Resp BP Pulse Ox 99.2 F 92 20 120/70 91 02/26/17 07:00 02/26/17 07:00 02/26/17 08:26 02/26/17 07:00 02/26/17 08:26 General appearance: Present: A&O X 3, no acute distress, obese, answers questions appropriately - Respiratory Respiratory exam: Present: rales, wheezes (diffuse). Absent: accessory muscle use, respiratory distress - Cardiovascular Cardiovascular exam: Present: RRR, +S1, +S2. Absent: diastolic murmur, gallop, rubs, systolic murmur - GI/Abdominal GI/Abdominal exam: Present: normal bowel sounds, soft, tenderness (epigastric). Absent: distended, rebound - Extremities Exam Extremities exam: Present: pedal edema, warm, radial pulses palpable and symmetrical. Absent: calf tenderness, cyanotic, normal inspection (Large incision along right anterior knee from patellar fixation 01/29/17, mild edema, wound is dry and mildly tender. Left shoulder also with incision which is non- erythematous, dry and mildly tender) - Neurological Exam Neurological exam: Present: alert, oriented X3, no focal deficits Internal Medicine: Result - Labs CBC & Chem 7: 02/26/17 05:20 02/26/17 05:20 Labs: Short CBC 02/26/17 Range/Units 05:20 WBC 13.9 H (4.3-11.1) K/mcL Hgb 9.8 L (11.5-15.4) g/dL Hct 30.1 L (35.3-44.9) % Plt Count 228 (140-400) K/mcL Neutrophils # 10.2 H (1.6-8.9) K/mcL BMP 02/25/17 02/25/17 02/26/17 12:35 20:53 05:20 Sodium 132 L Potassium 3.9 3.8 4.2 Chloride 93 L Carbon Dioxide 36 H BUN 14 Creatinine 0.57 Glucose 102 H Calcium 8.4 L - ABG Interpretation ABG results: PT/INR, D-dimer PT 18.0 Seconds (9.4-12.1) H 02/20/17 02:41 - VTE Documentation of Mechanical Device: Intermittent pneumatic compression device Consult Discharge Plan - Plan Referrals: Dion Whitman MD [Primary Care Provider] - 03/06/17 3:00 pm () Tiffany Gottlieb PAC [Physician Supervisor Print Line] - 03/02/17 8:15 am <Josep Oviedo H - Last Filed: 02/26/17 12:32> Date of Encounter: 02/26/17 - Constitutional Vitals: Temp Pulse Resp BP Pulse Ox 97.9 F 86 18 123/78 91 02/26/17 11:23 02/26/17 11:23 02/26/17 11:23 02/26/17 11:23 02/26/17 08:26 Internal Medicine: Result - Labs CBC & Chem 7: 02/26/17 05:20 02/26/17 05:20 Labs: Short CBC 02/26/17 Range/Units 05:20 WBC 13.9 H (4.3-11.1) K/mcL Hgb 9.8 L (11.5-15.4) g/dL Hct 30.1 L (35.3-44.9) % Plt Count 228 (140-400) K/mcL Neutrophils # 10.2 H (1.6-8.9) K/mcL BMP 02/25/17 02/25/17 02/26/17 12:35 20:53 05:20 Sodium 132 L Potassium 3.9 3.8 4.2 Chloride 93 L Carbon Dioxide 36 H BUN 14 Creatinine 0.57 Glucose 102 H Calcium 8.4 L - ABG Interpretation ABG results: PT/INR, D-dimer PT 18.0 Seconds (9.4-12.1) H 02/20/17 02:41 - Attending Attestation Sepsis secondary to possible pneumonia with history of gram-negative bacteremia/ Klebsiella, consider possible right knee acute cellulitis Continue vancomycin and Zosyn day 2 Order culture of the right knee surgical wound Consider imaging Left thigh mass will need to be worked up as an outpatient Liver cyst likely benign I examined this patient and my medical decision-making was reviewed with the Resident Physician. I agree with the documented findings, disposition and treatment plan as described except to the extent set forth below.
--- NOTE | 2017-02-26 16:11 | Infectious Disease Consult ---
Date of Encounter: 02/26/17 Time of Encounter: 16:11 Assessment and Plan (1) Sepsis Status: Acute Assessment and plan: The patient had three SIRS criteria on admission. Likely secondary to bacteremia. Improved. Fevers have resolved. Tachycardia has improved. Leukocytosis persists. Blood cultures drawn 02/19/17 are positive 2/2 sets for K. pneumoniae. Repeat blood cultures drawn 02/23/17 are NGTD x 2 sets. Etiology of recurrent leukocytosis unclear. She did get a dose of steroids on admission, so it could be related to that. Clinically, the patient appears weak , but doing okay. Continue Vancomycin IV for now. Pharmacy to dose. Goal trough ~15. Continue Zosyn 3.375 grams IV Q8H. Duration of treatment depends on the clinical picture. Will likely de-escalate antibiotics soon. Monitor renal function and for drug toxicity and dose-adjust antibiotics. Qualifiers: Sepsis type: sepsis due to unspecified organism Qualified Code(s): A41.9 - Sepsis, unspecified organism (2) Bacteremia Status: Acute Assessment and plan: Causative organism K. pneumoniae. Source unclear, but concern for intra-abdominal source given the cystic lesion on the liver and her abdominal pain. CT of the chest showed a cystic lesion in the left liver lobe with mild stranding about the left adrenal gland. CT of the abdomen and pelvis showed re-demonstration of the cyst, but no evidence of abscess. No urinary symptoms. The patient does have a possible PNA on CXR, but not convinced that it is the source of the patient's bacteremia. Consider repeating CT scan with PO and IV contrast to evaluate. Blood cultures drawn 02/19/17 were positive 2/2 sets. Repeat blood cultures drawn 02/23/17 are NGTD x 2 sets. Antibiotic recommendations as above for now. Duration of treatment depends on the clinical picture. (3) Liver lesion Status: Acute Assessment and plan: Originally noted on CTA of the chest 02/19/17. Dedicated CT of the abdomen and pelvis showed re-demonstration of the cyst. No evidence of abscess noted on CT scan, but etiology of cyst not entirely clear. If patient continues to have leukocytosis and/or bacteremia recurs, may need to consider biopsy of the cyst to evaluate for infection. 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 Consider evaluation by orthopedic oncology as recommended per the radiologist. (5) Hypokalemia Status: Acute (6) Patellar fracture Status: Acute Assessment and plan: Status post ORIF 01/29/17. Clinically, the surgical site does not appear infected. CT of the right knee showed a mild effusion and post-op changes. Ortho consulted and following. Qualifiers: Encounter type: initial encounter Fracture type: closed Fracture morphology: comminuted Fracture alignment: nondisplaced Laterality: right Qualified Code(s): S82.044A - Nondisplaced comminuted fracture of right patella , initial encounter for closed fracture (7) Humerus fracture Status: Acute Assessment and plan: CT of the left shoulder shows post-op changes, but no evidence of acute infection. Clinically, the shoulder does not appear infected. Ortho consulted and following. Qualifiers: Encounter type: initial encounter Humerus Location: supracondylar fracture without intercondylar fracture Fracture type: closed Fracture morphology: comminuted Fracture alignment: displaced Laterality: left Qualified Code(s ): S42.422A - Displaced comminuted supracondylar fracture without intercondylar fracture of left humerus, initial encounter for closed fracture (8) GERD (gastroesophageal reflux disease) Status: Chronic Qualifiers: Esophagitis presence: without esophagitis Qualified Code(s): K21.9 - Gastro -esophageal reflux disease without esophagitis (9) COPD (chronic obstructive pulmonary disease) Status: Chronic Qualifiers: COPD type: unspecified COPD Qualified Code(s): J44.9 - Chronic obstructive pulmonary disease, unspecified (10) CAD (coronary artery disease) Status: Chronic Qualifiers: Coronary Disease-Associated Artery/Lesion type: [place] artery Habematolel vs. transplanted heart: ken[place]ze heart Associated angina: without angina Qualified Code(s): I25.10 - Atherosclerotic heart disease of [place] coronary artery without angina pectoris (11) Anxiety Status: Acute Infectious Disease HPI - Data of Consult Patient: new to practice Consult date: 02/26/17 Requesting Physician: Josep Oviedo Primary Care Provider: Dion Whitman MD - Consult Narrative Reason for consult: Leukocytosis History of present illness: Ms. Cook is a 66 year old female past medical history of COPD, CAD, GERD, hyperlipidemia, hypertension, VT, CHF, and recent fall with left humerus and right patella fracture status post ORIF. The patient noted to the hospital February 19 sepsis. We're consulted February 26 for leukocytosis. Briefly, the patient is a 66-year-old female with past medical history as stated above. The patient presented to the emergency department with complaints of elevated heart rate, shortness breath, and fever. She states she was discharged from rehabilitation the Sunday prior to the onset of her symptoms. She states her symptoms started on Sunday generalized fatigue and malaise and generally just not feeling well. Suture symptoms progress and continued to get worse and she came to the emergency department. Upon arrival, the patient was febrile, tachycardic, and leukocytosis with neutrophilic predominance. She also was noted to have a mildly elevated alkaline phosphatase. X-ray was negative. A CTA of the chest showed a cystic lesion on the left lobe of the liver with mild stranding about the left adrenal gland. Blood cultures were obtained 2 sets. Urinalysis was negative. The patient was started on IV antibiotics and admitted to the hospital for further evaluation. Since admission, the patient's white blood cell count did improve, but it back up yesterday, but is slightly better today. Her fevers have resolved. He did undergo a liver ultrasound to evaluate the liver cyst that again just showed the septated cyst on the left lobe of the liver. A dedicated CT of the abdomen and pelvis that again showed redemonstration of the cyst on the liver as well as a left thigh mass. Due to the patient's recent surgeries, she did undergo a niece CT that showed a stable patella fracture and a mild right knee effusion. She also had a left shoulder CT that did not show any unexpected abnormalities. 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 Orthopedics was consulted and did not believe that the patient's source of fever was related to her recent surgeries. The patient's blood cultures did come back +2 out of 2 sets for Klebsiella pneumoniae. She had a peak chest x-ray on February 24 that showed a faint left lower lobe airspace disease with a possible trace pleural effusion. Today, her white blood cell count is 13.9. The patient was originally descalated to Levaquin once her blood culture susceptibilities came back, but due to the increase in her white blood cell count yesterday, her antibiotics were re-broadened to vancomycin and Zosyn. We have been asked to evaluate and make further recommendations. My exam today, the patient states that she is not to recall the events leading up to her hospitalization very well. She does report that she knows she had a fever and was somewhat confused prior to admission. Reports headache, but no neck pain or stiffness prior to arrival. She denies any congestion, earache, sore throat, or congestion. She does report a moist nonproductive cough that is chronic. She denies any chest pain, but does report some shortness of breath prior to admission. She denies any nausea, vomiting, diarrhea, or constipation. She does report some right-sided abdominal pain that is nonradiating. She denies any urinary complaints, vaginal bleeding, or discharge. She states her appetite has not been very good. No thrush or new skin lesions. Lives at home with her daughter. There are dogs in the home. She denies any recent travel. She does report a recent history of tobacco use, but a pack a day , but states she recently quit. She denies any alcohol or illicit drug use. The patient is retired and does not work outside the home at this time. CC: Josep Oviedo Past Med Surg Social Fam HX - Past Medical History Attestation: Yes The following information was validated with the patient. Source: patient, old records reviewed, nursing notes reviewed Medical history: COPD, coronary artery disease, GERD, hyperlipidemia, hypertension, myocardial infarction Psychiatric history: anxiety - Past Surgical History Surgical History: hysterectomy, orthopedic, other (Left patella ORIF, Left humerus ORIF) - Social History Smoking Status: Current every day smoker (she quit but started smoking again) Smokeless Tobacco Status: No Alcohol use: none Drug use: none - Family History Mother Living Status: Hx Family Cardiac Disorders: Yes Hx Family Cancer: Yes (colon ca) Hx Family Neurologic Disorders: Yes (cva) Hx Family HEENT Disorders: Yes (macular degeneration) Father Adopted: No Family Member Ethnicity: Non- Living Status: Hx Family Cardiac Disorders: Yes Hx Family Respiratory Disorders: No Hx Family Cancer: Yes (colon 1979) Hx Family GI Disorders: No Hx Family Endocrine Disorder: No Hx Family Neuromuscular Disorders: No Hx Family Neurologic Disorders: Yes (CVA with left side weakness) Hx Family HEENT Disorders: Yes (macular degeneration) Hx Family Autoimmune Disorders: No Infectious Disease-CN:Meds Ipratropium/Albuterol Neb [Duoneb] 3 ml IH QID PRN 08/12/15 [History] Omeprazole [PriLOSEC] 20 mg PO DAILY 08/12/15 [History] Aspirin 81 mg PO DAILY tab.chew 04/06/16 [Rx] Atorvastatin [Lipitor] 40 mg PO HS 01/26/17 [History] Fluticasone/Salmeterol [Advair 500-50 Diskus] 1 each IH BID 01/26/17 [History] Metoprolol Succinate 100 mg PO DAILY 01/26/17 [History] OxyCODONE Immed Rel [Roxicodone 5 MG] 5 mg PO Q6HR PRN #28 tablet 01/29/17 [Rx] ALPRAZolam [Xanax 0.25 MG Tablet] 0.25 mg PO Q8HR PRN 02/01/17 [History] Docusate [Colace] 100 mg PO BID capsule 02/01/17 [Rx] Ergocalciferol (VITAMIN D2) [Drisdol (50,000 Unit)] 50,000 unit PO QWEEK capsule 02/01/17 [Rx] Losartan [Cozaar] 100 mg PO DAILY tablet 02/01/17 [Rx] Magnesium Oxide [Mag-Ox] 400 mg PO BID tablet 02/01/17 [Rx] Temazepam [Restoril] 15 mg PO HS PRN capsule 02/01/17 [Rx] Bumetanide [Bumex] 1.5 mg PO DAILY #45 tablet 02/16/17 [Rx] Potassium Chloride 10 meq PO DAILY #30 tab.er.prt 02/16/17 [Rx] 3 Allergy/AdvReac Type Severity Reaction Status Date / Time No Known Allergies Allergy Verified 08/09/15 16:58 All systems: reviewed and no additional remarkable complaints except as stated Exam - Constitutional Vitals: Temp Pulse Resp BP Pulse Ox 97.9 F 86 18 123/78 91 02/26/17 11:23 02/26/17 11:23 02/26/17 11:23 02/26/17 11:23 02/26/17 08:26 General appearance: cooperative, no acute distress, obese - Head Head exam: Present: atraumatic, normal inspection, normocephalic - Eye Eye exam: Present: EOMI, normal appearance, PERRL Pupils: Present: normal accommodation - ENT ENT exam: Present: mucous membranes moist - Neck Neck exam: Present: normal inspection - Respiratory Respiratory exam: Present: CTAB. Absent: rales, respiratory distress, rhonchi, wheezes - Cardiovascular Cardiovascular exam: Present: RRR, +S1, +S2 - GI/Abdominal GI/Abdominal exam: Present: distended (obese), normal bowel sounds, soft, tenderness (Right side) - Extremities Exam Extremities exam: Present: joint swelling (mild, right knee), normal inspection , tenderness (right knee). Absent: pedal edema - Expanded Upper Extremity Exam Upper Arm exam: Present: tenderness (Left shoulder surgical incision with honeycomb dressing without erythema, warmth, or drainage noted. ) - Expanded Lower Extremity Exam 1 - Right anterior knee surgical incision without redness, warmth, or erythema. ROM not assessed. - Neurological Exam Neurological exam: Present: alert, oriented X3, no focal deficits - Psychiatric Psychiatric exam: Present: normal affect, normal mood - Skin Skin exam: Present: dry, intact, normal color, warm Infectious Disease CN: Results - Labs CBC & Chem 7: 02/27/17 06:32 02/27/17 06:32 Cultures: Cultures 02/23/17 16:20 Blood Culture - Preliminary Peripheral Venipuncture No growth. 02/23/17 16:20 Blood Culture - Preliminary Peripheral Venipuncture No growth. - VTE Documentation of Mechanical Device: Intermittent pneumatic compression device Consult Discharge Plan - Plan Referrals: Dion Whitman MD [Primary Care Provider] - 03/06/17 3:00 pm () Tiffany Gottlieb PAC [Physician Heel Cover Splitter] - 03/02/17 8:15 am
[2017-02-26] MEDS: Ipratropium/Albuterol Neb 3 ML IH PRN (20:48)
[2017-02-27] MEDS: ALPRAZolam 0.25 MG TABLET PO PRN ×2 (00:02→22:47)
[2017-02-27] MEDS: Piperacillin/Tazobactam 3.375 GM in 0.9 % Sodium Chloride Mini Bag 100 ML IVPB SCH (03:26)
[2017-02-27] MEDS: *HR* OxyCODONE Immed Rel 5 MG TABLET PO PRN ×3 (03:26→22:47)
[2017-02-27] MEDS: *HR* Heparin 5,000 UNIT/ML VIAL SQ SCH ×2 (06:20→18:09)
[2017-02-27 07:01] LABS: Basophils % 0.2 %; Eosinophils # 0.4 K/mcL (0.0-0.6); Hematocrit 28.8 % (35.3-44.9); Hemoglobin 9.3 g/dL (11.5-15.4); Immature Granulocytes % 3.5 % (0-4); Lymphocytes # 1.3 K/mcL (0.6-4.6); Lymphocytes % 10.4 %; Mean Corpuscular HGB Conc 32.3 g/dL (31.6-35.5); Mean Corpuscular Hemoglobin 30.9 pg (28.0-33.3); Mean Corpuscular Volume 95.7 fL (83.0-100.0); Neutrophils # 9.7 K/mcL (1.6-8.9); Nucleated Red Blood Cells 0.2 /100 WBC (0); Platelet Count 234 K/mcL (140-400); Red Blood Count 3.01 M/mcL (3.82-4.97); Red Cell Distribution Width 13.1 % (11.5-14.5); Segmented Neutrophils % 74.9 %
[2017-02-27 07:13] LABS: Magnesium 1.4 mg/dL (1.6-2.6); Phosphorous 3.9 mg/dL (2.3-4.7)
[2017-02-27 07:16] LABS: BUN/Creatinine Ratio 18 (6-26); Blood Urea Nitrogen 11 mg/dL (7-20); Calcium 8.2 mg/dL (8.6-10.8); Carbon Dioxide 36 mEq/L (19-29); Chloride 92 mEq/L (98-109); Glucose 94 mg/dL (70-99); Osmolality,Calculated 277 (280-300); Sodium 134 mEq/L (136-145); eGFR For African Americans > 60 (> 60); eGFR For Non-African Americans > 60 (> 60)
[2017-02-27] MEDS ORDERED: Aminoglycoside Consult 1 EACH MC ONE (07:32)
[2017-02-27] MEDS: Budesonide/Formoterol 160/4.5 MDI IH SCH ×2 (07:49→22:14)
[2017-02-27] MEDS: Metoprolol XL (24 HR) Succ 50 MG TAB.ER.24H PO SCH (08:35)
[2017-02-27] MEDS: Aspirin 81 MG TAB.CHEW PO SCH (08:35)
[2017-02-27] MEDS: Magnesium Oxide 400 MG TABLET PO SCH ×2 (08:35→20:31)
[2017-02-27] MEDS: Vancomycin 1,000 MG in D5% in Water 250 ML IVPB SCH (09:34)
[2017-02-27] MEDS ORDERED: Piperacillin/Tazobactam 3.375 GM/200 ML BAG IVPB SCH (11:00)
--- NOTE | 2017-02-27 11:22 | Infectious Disease Progress No ---
Date of Encounter: 02/27/17 Time of Encounter: 11: - Assessment and Plan (1) Sepsis Current Visit: Yes Status: Acute The patient had three SIRS criteria on admission. Likely secondary to bacteremia. Improved. Fevers have resolved. Tachycardia has improved. Leukocytosis persists. Blood cultures drawn 02/19/17 are positive 2/2 sets for K. pneumoniae. Repeat blood cultures drawn 02/23/17 are NGTD x 2 sets. Etiology of recurrent leukocytosis unclear. She did get a dose of steroids on admission, so it could be related to that. Clinically, the patient appears improved today. Continue Vancomycin IV for now. Pharmacy to dose. Goal trough ~15. Continue Zosyn 3.375 grams IV Q8H. Duration of treatment depends on the clinical picture. Will likely de-escalate antibiotics soon. Monitor renal function and for drug toxicity and dose-adjust antibiotics. Qualifiers: Sepsis type: sepsis due to unspecified organism Qualified Code(s): A41.9 - Sepsis, unspecified organism (2) Bacteremia Current Visit: Yes Status: Acute Causative organism K. pneumoniae. Source unclear, but concern for intra-abdominal source given the cystic lesion on the liver and her abdominal pain. CT of the chest showed a cystic lesion in the left liver lobe with mild stranding about the left adrenal gland. CT of the abdomen and pelvis showed re-demonstration of the cyst, but no evidence of abscess. No urinary symptoms. The patient does have a possible PNA on CXR, but not convinced that it is the source of the patient's bacteremia. Consider repeating CT scan of the abdomen with PO and IV contrast to evaluate and get CT chest to evaluate for PNA. Blood cultures drawn 02/19/17 were positive 2/2 sets. Repeat blood cultures drawn 02/23/17 are NGTD x 2 sets. Antibiotic recommendations as above for now. Duration of treatment depends on the clinical picture. (3) Liver lesion Current Visit: Yes Status: Acute Originally noted on CTA of the chest 02/19/17. Dedicated CT of the abdomen and pelvis showed re-demonstration of the cyst. No evidence of abscess noted on CT scan, but etiology of cyst not entirely clear. If patient continues to have leukocytosis and/or bacteremia recurs, may need to consider biopsy of the cyst to evaluate for infection. 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 Consider evaluation by orthopedic oncology as recommended per the radiologist. (5) Hypokalemia Current Visit: Yes Status: Acute (6) Patellar fracture Current Visit: No Status: Acute Status post ORIF 01/29/17. Clinically, the surgical site does not appear infected. CT of the right knee showed a mild effusion and post-op changes. Ortho consulted and following. Qualifiers: Encounter type: initial encounter Fracture type: closed Fracture morphology: comminuted Fracture alignment: nondisplaced Laterality: right Qualified Code(s): S82.044A - Nondisplaced comminuted fracture of right patella , initial encounter for closed fracture (7) Humerus fracture Current Visit: No Status: Acute CT of the left shoulder shows post-op changes, but no evidence of acute infection. Clinically, the shoulder does not appear infected. Ortho consulted and following. Qualifiers: Encounter type: initial encounter Humerus Location: supracondylar fracture without intercondylar fracture Fracture type: closed Fracture morphology: comminuted Fracture alignment: displaced Laterality: left Qualified Code(s ): S42.422A - Displaced comminuted supracondylar fracture without intercondylar fracture of left humerus, initial encounter for closed fracture (8) GERD (gastroesophageal reflux disease) Current Visit: No Status: Chronic Qualifiers: Esophagitis presence: without esophagitis Qualified Code(s): K21.9 - Gastro -esophageal reflux disease without esophagitis (9) COPD (chronic obstructive pulmonary disease) Current Visit: Yes Status: Chronic Qualifiers: COPD type: unspecified COPD Qualified Code(s): J44.9 - Chronic obstructive pulmonary disease, unspecified (10) CAD (coronary artery disease) Current Visit: No Status: Chronic Qualifiers: Coronary Disease-Associated Artery/Lesion type: [place] artery [place] vs. transplanted heart: [place] heart Associated angina: without angina Qualified Code(s): I25.10 - Atherosclerotic heart disease of [place] coronary artery without angina pectoris (11) Anxiety Current Visit: Yes Status: Acute - Subjective Interval history: Patient seen and examined. No acute events noted overnight. Patient sitting up in the bedside chair. States that overall she feels better. She does report continued pain in the left shoulder, right knee, and right abdomen, but states her belly pain is better today. She denies any fevers or chills or rigors. Denies any headache or neck pain. Denies any chest pain or shortness of breath. She does report an intermittent nonproductive cough. She denies any nausea, vomiting, diarrhea, or constipation. She states she had a bowel movement this morning. She states her appetite is a little bit better today. She denies any urinary complaints. She denies any oral thrush or new skin lesions. Infect Dis PN-Objective Data - Labs CBC & Chem 7: 02/27/17 06:32 02/27/17 06:32 Labs: Laboratory Results - last 24 hr 02/27/17 02/27/17 02/27/17 06:32 06:32 06:32 WBC 12.9 H RBC 3.01 L Hgb 9.3 L Hct 28.8 L MCV 95.7 MCH 30.9 MCHC 32.3 RDW 13.1 Plt Count 234 MPV 10.0 Immature Gran % 3.5 Seg Neutrophils % 74.9 Lymphocytes % 10.4 Monocytes % 8.0 Eosinophils % 3.0 Basophils % 0.2 Neutrophils # 9.7 H Lymphocytes # 1.3 Monocytes # 1.0 Eosinophils # 0.4 Basophils # 0.0 Nucleated RBCs/100 WBC 0.2 H Sodium 134 L Potassium 4.0 Chloride 92 L Carbon Dioxide 36 H BUN 11 Creatinine 0.62 Est GFR ( Amer) > 60 Est GFR (Non-Af Amer) > 60 BUN/Creatinine Ratio 18 Glucose 94 Calculated Osmolality 277 L Calcium 8.2 L Phosphorus Magnesium Vancomycin Trough 9.6 L 02/27/17 06:32 WBC RBC Hgb Hct MCV MCH MCHC RDW Plt Count MPV Immature Gran % Seg Neutrophils % Lymphocytes % Monocytes % Eosinophils % Basophils % Neutrophils # Lymphocytes # Monocytes # Eosinophils # Basophils # Nucleated RBCs/100 WBC Sodium Potassium Chloride Carbon Dioxide BUN Creatinine Est GFR ( Amer) Est GFR (Non-Af Amer) BUN/Creatinine Ratio Glucose Calculated Osmolality Calcium Phosphorus 3.9 Magnesium 1.4 L Vancomycin Trough Cultures: Cultures 02/23/17 16:20 Blood Culture - Preliminary Peripheral Venipuncture No growth. 02/23/17 16:20 Blood Culture - Preliminary Peripheral Venipuncture No growth. Exam - Constitutional Vitals: Temp Pulse Resp BP Pulse Ox 98.8 F 96 20 113/75 95 02/27/17 10:55 02/27/17 10:55 02/27/17 10:55 02/27/17 10:55 02/27/17 10:55 General appearance: cooperative, no acute distress, obese - Head Head exam: Present: atraumatic, normal inspection, normocephalic - Eye Eye exam: Present: EOMI, normal appearance, PERRL Pupils: Present: normal accommodation - ENT ENT exam: Present: mucous membranes moist - Neck Neck exam: Present: normal inspection - Respiratory Respiratory exam: Present: wheezes (fine expiratory wheezes throughout). Absent : rales, respiratory distress, rhonchi - Cardiovascular Cardiovascular exam: Present: RRR, +S1, +S2 - GI/Abdominal GI/Abdominal exam: Present: distended (obese), normal bowel sounds, soft, tenderness (RUQ, epigastric, improved since yesterday) - Extremities Exam Extremities exam: Present: joint swelling (trace right knee), pedal edema (1+ BLE), tenderness (right knee, mild; left shoulder mild) Additional comments: Left anterior shoulder surgical incision with honeycomb dressing C/D/I. No redness, warmth, or drainage noted. ROM not assessed. Right anterior knee surgical incision with honeycomb dressing C/D/I. No redness , warmth, or drainage noted. ROM not assessed. - Neurological Exam Neurological exam: Present: alert, oriented X3, no focal deficits - Psychiatric Psychiatric exam: Present: normal affect, normal mood - Skin Skin exam: Present: dry, intact, normal color, warm - VTE Documentation of Mechanical Device: Intermittent pneumatic compression device Consult Discharge Plan - Plan Referrals: Dion Whitman MD [Primary Care Provider] - 03/06/17 3:00 pm () Tiffany Gottlieb PAC [Physician Laboratory Veterinarian] - 03/02/17 8:15 am
--- NOTE | 2017-02-27 13:25 | Internal Med Progress Note ---
<Geo Mcfarland - Last Filed: 02/27/17 13:22> Date of Encounter: 02/27/17 Time of Encounter: 13:22 - Assessment and plan (1) Bacteremia Current Visit: Yes Status: Acute Assessment and plan: 66-year-old female admitted on 02/19/2017 presenting with tachycardia, febrile and elevated white blood cell count, blood cultures grew Klebsiella. Initial CTA showed no evidence of PE, cystic lesion of the left lobe of the liver and mild stranding a left adrenal gland was identified. Initial chest x-ray was normal. There was initial concern that the infection may be stemming from her recent left shoulder ORIF and or knee patella fixation completed in December. Orthopedic surgery did not believe that these were the causes of her current medical problem. She was initially started on Zosyn and vancomycin but after sensitivities to blood cultures returned she was switched to Levaquin. Repeat blood cultures from 02/23/2017 were negative for growth. Mrs. Cook clinically started to decline on February 19. Evaluation with repeat chest x-ray was concerning for lower left consolidation forming and she was restarted on broad-spectrum antibiotics. - Clinically improving with WBC 12.9, hemoglobin 9.3 hematocrit 28.8. Vitals are stable and appropriate. Plan: - Continue current antibiotic coverage plan to de-escalate. (2) Sepsis Current Visit: Yes Status: Acute Assessment and plan: Antibiotic coverage broadened with Zosyn + Vanco yesterday given CXR findings Qualifiers: Sepsis type: sepsis due to unspecified organism Qualified Code(s): A41.9 - Sepsis, unspecified organism (3) HTN (hypertension) Current Visit: No Status: Chronic Assessment and plan: BP stable Qualifiers: Hypertension type: essential hypertension Qualified Code(s): I10 - Essential (primary) hypertension (4) SANJUANA (obstructive sleep apnea) Current Visit: No Status: Chronic Assessment and plan: continue CPAP at bedtime (5) GERD (gastroesophageal reflux disease) Current Visit: No Status: Chronic Assessment and plan: Patient developed epigastric discomfort 02/24 Increased omeprazole, pt sx improving Qualifiers: Esophagitis presence: without esophagitis Qualified Code(s): K21.9 - Gastro -esophageal reflux disease without esophagitis (6) COPD (chronic obstructive pulmonary disease) Current Visit: Yes Status: Chronic Assessment and plan: continue bronchodilator support O2 supplementation not in acute exacerbation Qualifiers: COPD type: unspecified COPD Qualified Code(s): J44.9 - Chronic obstructive pulmonary disease, unspecified (7) CAD (coronary artery disease) Current Visit: No Status: Chronic Qualifiers: Coronary Disease-Associated Artery/Lesion type: [place] artery [place] vs. transplanted heart: [place] heart Associated angina: without angina Qualified Code(s): I25.10 - Atherosclerotic heart disease of [place] coronary artery without angina pectoris (8) Liver lesion Current Visit: Yes Status: Acute Assessment and plan: -Incidental finding on CT chest -CT abd/pelvis reported benign-appearing posterior left hepatic lobe cystic mass but no evidence of liver abscess. Also heterogeneous partially visualized mass in the left anterior thigh musculature with mixed areas of hyperdensity and underlying fat which can be lipomatosis tumor including possible liposarcoma. MRI of left femur showed mass with fatty signal possibly benign lipomatous tumor but liposarcoma not excluded. Radiology recommends consultation with orthopedic oncologist for consideration of biopsy. We will refer to specialist as outpatient upon discharge -Liver biopsy reported: large septated cyst in the left lobe of the liver, this has increased in size since previous CT in 2004 - Constitutional Vitals: Temp Pulse Resp BP Pulse Ox 98.8 F 93 16 113/75 98 02/27/17 10:55 02/27/17 13:16 02/27/17 13:16 02/27/17 10:55 02/27/17 13:16 General appearance: Present: A&O X 3, no acute distress, obese, answers questions appropriately Exam: General: Patient alert, awake, oriented 3, interactive, in no acute distress HEENT: Normocephalic, atraumatic, pupils equal reactive to light, nasal cavity patent and open septum median position, oral mucosa moist, uvula midline, neck supple trachea midline no palpable lymphadenopathy, no thyromegaly. Chest: Symmetric bilateral correlating with respiratory effort, effort nonlabored. Cardiac: Regular rate and rhythm, positive S1 and S2. no bruits appreciated bilateral carotids, Radial pulses 2+ bilateral, posterior tibial and dorsal pedal pulses 2+ bilateral. Respiratory: Clear to auscultation all lung cotter Abdomen: Soft, nontender, positive bowel sounds, no palpable masses appreciated on examination Extremities: Symmetric bilateral, bilateral lower extremities without erythema or edema patient moving all 4 extremities spontaneously. Neurologic: No focal deficits appreciated on examination. Face symmetric, muscle strength symmetric bilateral upper and lower extremities. Internal Medicine: Result - Labs CBC & Chem 7: 02/27/17 06:32 02/27/17 06:32 Labs: Short CBC 02/27/17 Range/Units 06:32 WBC 12.9 H (4.3-11.1) K/mcL Hgb 9.3 L (11.5-15.4) g/dL Hct 28.8 L (35.3-44.9) % Plt Count 234 (140-400) K/mcL Neutrophils # 9.7 H (1.6-8.9) K/mcL BMP 02/27/17 06:32 Sodium 134 L Potassium 4.0 Chloride 92 L Carbon Dioxide 36 H BUN 11 Creatinine 0.62 Glucose 94 Calcium 8.2 L - ABG Interpretation ABG results: PT/INR, D-dimer PT 18.0 Seconds (9.4-12.1) H 02/20/17 02:41 - VTE Documentation of Mechanical Device: Intermittent pneumatic compression device Consult Discharge Plan - Plan Referrals: Dion Whitman MD [Primary Care Provider] - 03/06/17 3:00 pm () Tiffany Gottlieb PAC [Physician Departmental Secretary] - 03/02/17 8:15 am <Josep Oviedo H - Last Filed: 02/27/17 14:53> Date of Encounter: 02/27/17 - Constitutional Vitals: Temp Pulse Resp BP Pulse Ox 98.8 F 93 16 113/75 98 02/27/17 10:55 02/27/17 13:16 02/27/17 13:16 02/27/17 10:55 02/27/17 13:16 Internal Medicine: Result - Labs CBC & Chem 7: 02/27/17 06:32 02/27/17 06:32 Labs: Short CBC 02/27/17 Range/Units 06:32 WBC 12.9 H (4.3-11.1) K/mcL Hgb 9.3 L (11.5-15.4) g/dL Hct 28.8 L (35.3-44.9) % Plt Count 234 (140-400) K/mcL Neutrophils # 9.7 H (1.6-8.9) K/mcL BMP 02/27/17 06:32 Sodium 134 L Potassium 4.0 Chloride 92 L Carbon Dioxide 36 H BUN 11 Creatinine 0.62 Glucose 94 Calcium 8.2 L - ABG Interpretation ABG results: PT/INR, D-dimer PT 18.0 Seconds (9.4-12.1) H 02/20/17 02:41 - Attending Attestation Sepsis secondary to possible pneumonia with history of gram-negative bacteremia/ Klebsiella Continue vancomycin day 3 , stop Zosyn day 3 start cefepime PICC consult , may discharge on Home IV abx in the morning if stable Left thigh mass will need to be worked up as an outpatient Liver cyst likely benign I examined this patient and my medical decision-making was reviewed with the Resident Physician. I agree with the documented findings, disposition and treatment plan as described except to the extent set forth below.
[2017-02-27] MEDS ORDERED: Cefepime HCl 1,000 MG in D5% in Water (Mini-Bag+) 100 ML IVPB SCH (14:50)
[2017-02-27] MEDS: Vancomycin 1,250 MG in D5% in Water 250 ML IVPB SCH (18:09)
[2017-02-27] MEDS: Cefepime HCl 1,000 MG in Water for inj. (sterile) 10 ML IVP SCH (18:09)
[2017-02-27] MEDS: Ipratropium/Albuterol Neb 3 ML IH PRN (22:13)
[2017-02-28] MEDS: Cefepime HCl 1,000 MG in Water for inj. (sterile) 10 ML IVP SCH ×2 (05:47→20:33)
[2017-02-28] MEDS: *HR* Heparin 5,000 UNIT/ML VIAL SQ SCH ×2 (05:50→16:49)
[2017-02-28 05:53] LABS: Hematocrit 31.8 % (35.3-44.9); Mean Corpuscular HGB Conc 31.4 g/dL (31.6-35.5); Mean Corpuscular Hemoglobin 30.4 pg (28.0-33.3); Mean Corpuscular Volume 96.7 fL (83.0-100.0); Mean Platelet Volume 9.8 fL (9.4-12.4); Platelet Count 265 K/mcL (140-400); Red Blood Count 3.29 M/mcL (3.82-4.97); Red Cell Distribution Width 13.1 % (11.5-14.5)
[2017-02-28 06:04] LABS: BUN/Creatinine Ratio 14 (6-26); Blood Urea Nitrogen 9 mg/dL (7-20); Calcium 8.4 mg/dL (8.6-10.8); Carbon Dioxide 36 mEq/L (19-29); Chloride 90 mEq/L (98-109); Glucose 103 mg/dL (70-99); Osmolality,Calculated 275 (280-300); Potassium 3.6 mEq/L (3.5-4.5); Sodium 133 mEq/L (136-145); eGFR For African Americans > 60 (> 60); eGFR For Non-African Americans > 60 (> 60)
[2017-02-28] MEDS: Aspirin 81 MG TAB.CHEW PO SCH (08:37)
[2017-02-28] MEDS: Metoprolol XL (24 HR) Succ 50 MG TAB.ER.24H PO SCH (08:37)
[2017-02-28] MEDS: Magnesium Oxide 400 MG TABLET PO SCH ×2 (08:37→20:35)
[2017-02-28] MEDS: *HR* OxyCODONE Immed Rel 5 MG TABLET PO PRN ×2 (08:43→20:51)
[2017-02-28] MEDS: Vancomycin 1,250 MG in D5% in Water 250 ML IVPB SCH ×2 (09:38→20:55)
[2017-02-28] MEDS: Budesonide/Formoterol 160/4.5 MDI IH SCH ×2 (11:08→20:12)
[2017-02-28] MEDS: ALPRAZolam 0.25 MG TABLET PO PRN ×2 (11:51→22:29)
--- NOTE | 2017-02-28 11:56 | Discharge Summary ---
Date of Encounter: 02/28/17 Time of Encounter: 11:54 - Discharge Diagnosis (1) Bacteremia Priority: Primary Status: Acute (2) Sepsis Priority: Primary Status: Acute Qualifiers: Sepsis type: sepsis due to unspecified organism Qualified Code(s): A41.9 - Sepsis, unspecified organism (3) HTN (hypertension) Priority: Secondary Status: Chronic Qualifiers: Hypertension type: essential hypertension Qualified Code(s): I10 - Essential (primary) hypertension (4) SANJUANA (obstructive sleep apnea) Priority: Secondary Status: Chronic (5) GERD (gastroesophageal reflux disease) Priority: Secondary Status: Chronic Qualifiers: Esophagitis presence: without esophagitis Qualified Code(s): K21.9 - Gastro -esophageal reflux disease without esophagitis (6) COPD (chronic obstructive pulmonary disease) Priority: Secondary Status: Chronic Qualifiers: COPD type: unspecified COPD Qualified Code(s): J44.9 - Chronic obstructive pulmonary disease, unspecified (7) CAD (coronary artery disease) Priority: Secondary Status: Chronic Qualifiers: Coronary Disease-Associated Artery/Lesion type: [place] artery [place] vs. transplanted heart: [place] heart Associated angina: without angina Qualified Code(s): I25.10 - Atherosclerotic heart disease of [place] coronary artery without angina pectoris (8) Liver lesion Priority: Secondary Status: Acute - Discharge Medications Home Medications: Ipratropium/Albuterol Neb [Duoneb] 3 ml IH QID PRN 08/12/15 [History] Omeprazole [PriLOSEC] 20 mg PO DAILY 08/12/15 [History] Aspirin 81 mg PO DAILY tab.chew 04/06/16 [Rx] Atorvastatin [Lipitor] 40 mg PO HS 01/26/17 [History] Fluticasone/Salmeterol [Advair 500-50 Diskus] 1 each IH BID 01/26/17 [History] Metoprolol Succinate 100 mg PO DAILY 01/26/17 [History] OxyCODONE Immed Rel [Roxicodone 5 MG] 5 mg PO Q6HR PRN #28 tablet 01/29/17 [Rx] ALPRAZolam [Xanax 0.25 MG Tablet] 0.25 mg PO Q8HR PRN 02/01/17 [History] Docusate [Colace] 100 mg PO BID capsule 02/01/17 [Rx] Ergocalciferol (VITAMIN D2) [Drisdol (50,000 Unit)] 50,000 unit PO QWEEK capsule 02/01/17 [Rx] Losartan [Cozaar] 100 mg PO DAILY tablet 02/01/17 [Rx] Magnesium Oxide [Mag-Ox] 400 mg PO BID tablet 02/01/17 [Rx] Temazepam [Restoril] 15 mg PO HS PRN capsule 02/01/17 [Rx] Bumetanide [Bumex] 1.5 mg PO DAILY #45 tablet 02/16/17 [Rx] Potassium Chloride 10 meq PO DAILY #30 tab.er.prt 02/16/17 [Rx] Allergies/Adverse Reactions: 3 Allergy/AdvReac Type Severity Reaction Status Date / Time No Known Allergies Allergy Verified 08/09/15 16:58 Date of admission: 02/19/17 19:07 Primary care physician: Dion Whitman MD Consults: 02/20/17 03:25 Consult to Pulmonology [CONS] Routine Consulting Provider: [facility] Reason for Consult: Klebsiella bacteremia Call Completed: No 02/20/17 14:49 Consult to Physical Therapy [CONS] Routine Comment: Evaluate, develop and implement POC Reason for Consult: S/p left shoulder and right knee surgery 3 weeks ago OT [Consult to Occupational Therapy] [CONS] Routine Comment: Evaluate, develop and implement POC Reason for Consult: S/p left shoulder and right knee surgery 3 weeks ago 02/21/17 17:50 Consult to Interventional Radiology [CONS] Routine Consulting Provider: Radiology Interventional [place] Reason for Consult: liver lesion biopsy Call Completed: Yes 02/23/17 08:11 Consult to Orthopedic Surgery [CONS] Routine Consulting Provider: Ronen Mcdaniels Reason for Consult: Notifying that pt is in hospital with klebsiella bacteremia, source unclear. L Humerus ORIF / R Patella Fixation 01/29/17. Thank you Time Notified: 08:11 Call Completed: Yes 02/24/17 14:38 Consult to Invasive Line Access Team [CONS] Routine Reason for Consult: LIMITED ACCESS Line Type: EPIV 02/26/17 09:57 Consult to Infectious Diseases [CONS] Routine Consulting Provider: Infectious Disease [place] Reason for Consult: Klebsiella bacteremia, sepsis Time Notified: 09:58 Call Completed: Yes Discharging clinician: Geo Mcfarland Anticipated date of discharge: 02/28/17 - Patient Status Disposition: Home Health Service Condition: Fair Functional capacity at discharge: uses cane/walker Overall status at discharge: patient is progressing back to baseline - Discharge Instructions Instructions: Sepsis (DC) Follow Up With: Dion Whitman MD [Primary Care Provider] - 03/06/17 3:00 pm () Tiffany Gottlieb PAC [Physician Warehouse Technician] - 03/02/17 8:15 am Additional Instructions: Follow-up with primary care provider next 3-5 days - Utilize home health services - Complete antibiotic therapy - Participate in physical therapy. - Diet and Activity Activity: increase activity as tolerated Diet: advance to your usual diet Interval History: Ms. Cook is a 66 year old female with a past medical history of COPD, [place] (2015 w/o stents), HTN, HLD, CHF, GERD, recent right knee and left shoulder surgery 01/26/2017. She presented to the hospital by EMS in mild distress complaining of overall malaise and fatigue that had worsened over the day. 4 SIRS criteria (T 103.2, HR 162, RR 22, WBC 14.7) on admission with lactic acid 1.4 upon admission. PCR positive for Klebsiella she was started on IV vancomycin, IV Zosyn. Blood cultures grew Klebsiella sensitive to Levaquin. IV vancomycin and Zosyn were discontinued she started on Levaquin. Liver ultrasound demonstrated there is a large septated cyst in the left lobe of the liver, biliary sludge, no gallstones. CT of the right knee Comminuted, displaced fracture through the patella, stable. There is an associated right knee effusion with adjacent soft tissue swelling and nonspecific subcutaneous edema surrounding the right knee. CT of the left shoulder demonstrates ORIF of the proximal left humeral head and neck fracture. There is a Hill-Sachs fracture noted. Fracture noted through the inferior aspect the left glenoid. Atherosclerotic disease. Orthopedic surgery was consult and with concern with recent right knee replacement. After orthopedic evaluation determined that this was not related to recent operation of the knee or left shoulder. Patient demonstrated clinical decompensation after she was started on Levaquin. Chest x -ray demonstrated a left lower lobe airspace disease and possible trace pleural effusion. Patient was switched back to broad-spectrum antibiotics. Infectious diseases consulted and the patient was continued on vancomycin and Zosyn. She continues show clinical improvement throughout her inpatient stay and evaluation on 02/28/2017 deemed stable for discharge to their home with home health or inpatient facility. Antibiotics for the remaining course will be dependent on ID recommendations. Hospital course: Ms. Cook is a 66 year old female - Time Spent with Patient Total time spent providing and/or coordinating discharge services: - Constitutional Vitals: Temp Pulse Resp BP Pulse Ox 98.5 F 93 16 122/74 96 02/28/17 06:44 02/28/17 08:30 02/28/17 06:44 02/28/17 08:30 02/28/17 06:44 General appearance: Present: A&O X 3, no acute distress, obese, answers questions appropriately Exam: General: Patient alert, awake, oriented 3, interactive, in no acute distress HEENT: Normocephalic, atraumatic, pupils equal reactive to light, nasal cavity patent and open septum median position, oral mucosa moist, uvula midline, neck supple trachea midline no palpable lymphadenopathy, no thyromegaly. Chest: Symmetric bilateral correlating with respiratory effort, effort nonlabored. Cardiac: Regular rate and rhythm, positive S1 and S2. no bruits appreciated bilateral carotids, Radial pulses 2+ bilateral, posterior tibial and dorsal pedal pulses 2+ bilateral. Respiratory: Clear to auscultation all lung cotter Abdomen: Soft, nontender, positive bowel sounds, no palpable masses appreciated on examination Extremities: Symmetric bilateral, bilateral lower extremities without erythema or edema patient moving all 4 extremities spontaneously. Neurologic: No focal deficits appreciated on examination. Face symmetric, muscle strength symmetric bilateral upper and lower extremities. - VTE Documentation of Mechanical Device: Venous foot pump, device
--- NOTE | 2017-02-28 12:05 | Physician Discharge Referral ---
Home Health/Hosp Referral Info Transfer to: Home Health Provider in Charge Post Discharge: PCP - Diagnosis (1) Bacteremia Priority: Primary Status: Acute (2) Sepsis Priority: Primary Status: Acute (3) HTN (hypertension) Priority: Secondary Status: Chronic (4) SANJUANA (obstructive sleep apnea) Priority: Secondary Status: Chronic (5) GERD (gastroesophageal reflux disease) Priority: Secondary Status: Chronic (6) COPD (chronic obstructive pulmonary disease) Priority: Secondary Status: Chronic (7) CAD (coronary artery disease) Priority: Secondary Status: Chronic (8) Liver lesion Priority: Secondary Status: Acute - Respiratory Orders Smoking Cessation: Smoking cessation has been advised. For more information, call the [place] Tobacco Quit Line at 5-336-TZQW-NOW. - Diet/Nutrition Diet/Nutrition Orders: Regular - Activity Activity Orders: Chair, Walker - Services Needed Following services are medically necessary services: Nursing, Home Health Aide, Physical Therapy, Home Infusion - Transfer Medications Home Medications: Ipratropium/Albuterol Neb [Duoneb] 3 ml IH QID PRN 08/12/15 [History] Omeprazole [PriLOSEC] 20 mg PO DAILY 08/12/15 [History] Aspirin 81 mg PO DAILY tab.chew 04/06/16 [Rx] Atorvastatin [Lipitor] 40 mg PO HS 01/26/17 [History] Fluticasone/Salmeterol [Advair 500-50 Diskus] 1 each IH BID 01/26/17 [History] Metoprolol Succinate 100 mg PO DAILY 01/26/17 [History] OxyCODONE Immed Rel [Roxicodone 5 MG] 5 mg PO Q6HR PRN #28 tablet 01/29/17 [Rx] ALPRAZolam [Xanax 0.25 MG Tablet] 0.25 mg PO Q8HR PRN 02/01/17 [History] Docusate [Colace] 100 mg PO BID capsule 02/01/17 [Rx] Ergocalciferol (VITAMIN D2) [Drisdol (50,000 Unit)] 50,000 unit PO QWEEK capsule 02/01/17 [Rx] Losartan [Cozaar] 100 mg PO DAILY tablet 02/01/17 [Rx] Magnesium Oxide [Mag-Ox] 400 mg PO BID tablet 02/01/17 [Rx] Temazepam [Restoril] 15 mg PO HS PRN capsule 02/01/17 [Rx] Bumetanide [Bumex] 1.5 mg PO DAILY #45 tablet 02/16/17 [Rx] Potassium Chloride 10 meq PO DAILY #30 tab.er.prt 02/16/17 [Rx] Allergies/Adverse Reactions: 3 Allergy/AdvReac Type Severity Reaction Status Date / Time No Known Allergies Allergy Verified 08/09/15 16:58 Certification: Further, I certify that my clinical findings support that this patient is homebound (i.e. absences from home require considerable and taxing effort and are for medical reasons or gnosticist services or infrequently or short duration when for other reasons) because: Homebound Reason: Patient requires assistance of a person or device to safely leave home, Post-surgery restriction and or conditions limit ability to leave home, Leaving home requires considerable and taxing effort due to condition Attestation: My signature below is to certify that this patient is under my care and that I, or nurse practitioner, or a physician's pizza hut assistant working with me, has a face-to -face encounter with this patient.
--- NOTE | 2017-02-28 13:31 | Infectious Disease Consult ---
Date of Encounter: 02/28/17 Time of Encounter: 13:30 Assessment and Plan (1) Sepsis Status: Acute Qualifiers: Sepsis type: sepsis due to unspecified organism Qualified Code(s): A41.9 - Sepsis, unspecified organism (2) Bacteremia Status: Acute (3) Liver lesion Status: Acute (4) Abnormal MRI Status: Acute (5) Hypokalemia Status: Acute (6) Patellar fracture Status: Acute Qualifiers: Encounter type: initial encounter Fracture type: closed Fracture morphology: comminuted Fracture alignment: nondisplaced Laterality: right Qualified Code(s): S82.044A - Nondisplaced comminuted fracture of right patella , initial encounter for closed fracture (7) Humerus fracture Status: Acute Qualifiers: Encounter type: initial encounter Humerus Location: supracondylar fracture without intercondylar fracture Fracture type: closed Fracture morphology: comminuted Fracture alignment: displaced Laterality: left Qualified Code(s ): S42.422A - Displaced comminuted supracondylar fracture without intercondylar fracture of left humerus, initial encounter for closed fracture (8) GERD (gastroesophageal reflux disease) Status: Chronic Qualifiers: Esophagitis presence: without esophagitis Qualified Code(s): K21.9 - Gastro -esophageal reflux disease without esophagitis (9) COPD (chronic obstructive pulmonary disease) Status: Chronic Qualifiers: COPD type: unspecified COPD Qualified Code(s): J44.9 - Chronic obstructive pulmonary disease, unspecified (10) CAD (coronary artery disease) Status: Chronic Qualifiers: Coronary Disease-Associated Artery/Lesion type: [place] artery [place] vs. transplanted heart: [place] heart Associated angina: without angina Qualified Code(s): I25.10 - Atherosclerotic heart disease of [place] coronary artery without angina pectoris (11) Anxiety Status: Acute Infectious Disease HPI - Data of Consult Requesting Physician: Josep Oviedo Primary Care Provider: Dion Whitman MD - Consult Narrative History of present illness: Ms. Cook is a 66 year old female CC: Josep Oviedo Past Med Surg Social Fam HX - Past Medical History Medical history: COPD, coronary artery disease, GERD, hyperlipidemia, hypertension, myocardial infarction Psychiatric history: anxiety - Past Surgical History Surgical History: hysterectomy, orthopedic, other (Left patella ORIF, Left humerus ORIF) - Social History Smoking Status: Current every day smoker (she quit but started smoking again) Smokeless Tobacco Status: No Alcohol use: none Drug use: none - Family History Mother Living Status: Hx Family Cardiac Disorders: Yes Hx Family Cancer: Yes (colon ca) Hx Family Neurologic Disorders: Yes (cva) Hx Family HEENT Disorders: Yes (macular degeneration) Father Adopted: No Family Member Ethnicity: Non- Living Status: Hx Family Cardiac Disorders: Yes Hx Family Respiratory Disorders: No Hx Family Cancer: Yes (colon ca 1979) Hx Family GI Disorders: No Hx Family Endocrine Disorder: No Hx Family Neuromuscular Disorders: No Hx Family Neurologic Disorders: Yes (CVA with left side weakness) Hx Family HEENT Disorders: Yes (macular degeneration) Hx Family Autoimmune Disorders: No Infectious Disease-CN:Meds Ipratropium/Albuterol Neb [Duoneb] 3 ml IH QID PRN 08/12/15 [History] Omeprazole [PriLOSEC] 20 mg PO DAILY 08/12/15 [History] Aspirin 81 mg PO DAILY tab.chew 04/06/16 [Rx] Atorvastatin [Lipitor] 40 mg PO HS 01/26/17 [History] Fluticasone/Salmeterol [Advair 500-50 Diskus] 1 each IH BID 01/26/17 [History] Metoprolol Succinate 100 mg PO DAILY 01/26/17 [History] OxyCODONE Immed Rel [Roxicodone 5 MG] 5 mg PO Q6HR PRN #28 tablet 01/29/17 [Rx] ALPRAZolam [Xanax 0.25 MG Tablet] 0.25 mg PO Q8HR PRN 02/01/17 [History] Docusate [Colace] 100 mg PO BID capsule 02/01/17 [Rx] Ergocalciferol (VITAMIN D2) [Drisdol (50,000 Unit)] 50,000 unit PO QWEEK capsule 02/01/17 [Rx] Losartan [Cozaar] 100 mg PO DAILY tablet 02/01/17 [Rx] Magnesium Oxide [Mag-Ox] 400 mg PO BID tablet 02/01/17 [Rx] Temazepam [Restoril] 15 mg PO HS PRN capsule 02/01/17 [Rx] Bumetanide [Bumex] 1.5 mg PO DAILY #45 tablet 02/16/17 [Rx] Potassium Chloride 10 meq PO DAILY #30 tab.er.prt 02/16/17 [Rx] Levofloxacin 750 MG/150 ML [Levaquin Premix 750mg/150 mL] 750 mg IVPB DAILY #28 bag 02/28/17 [Rx] 3 Allergy/AdvReac Type Severity Reaction Status Date / Time No Known Allergies Allergy Verified 08/09/15 16:58 Exam - Constitutional Vitals: Temp Pulse Resp BP Pulse Ox 98.5 F 93 16 122/74 96 02/28/17 06:44 02/28/17 08:30 02/28/17 06:44 02/28/17 08:30 02/28/17 06:44 Infectious Disease CN: Results - Labs CBC & Chem 7: 02/28/17 05:33 02/28/17 05:33 Cultures: Cultures 02/23/17 16:20 Blood Culture - Preliminary Peripheral Venipuncture No growth. 02/23/17 16:20 Blood Culture - Preliminary Peripheral Venipuncture No growth. - VTE Documentation of Mechanical Device: Venous foot pump, device Consult Discharge Plan - Plan Instructions: Sepsis (DC) Additional Instructions: Follow-up with primary care provider next 3-5 days - Utilize home health services - Complete antibiotic therapy - Participate in physical therapy. Referrals: Dion Whitman MD [Primary Care Provider] - 03/06/17 3:00 pm () Tiffany Gottlieb PAC [Physician Shellfish Processing Laborer] - 03/02/17 8:15 am Prescriptions: Levofloxacin 750 MG/150 ML [Levaquin Premix 750mg/150 mL] 750 mg IVPB DAILY #28 bag
[2017-02-28] MEDS ORDERED: Levofloxacin 750 MG/150 ML 750 MG/150 ML BAG IVPB SCH (15:00)
--- NOTE | 2017-02-28 15:45 | Infectious Disease Progress No ---
Date of Encounter: 02/28/17 Time of Encounter: 15:42 - Assessment and Plan (1) Sepsis Current Visit: Yes Status: Acute The patient had three SIRS criteria on admission. Likely secondary to bacteremia. Improved. Fevers have resolved. Tachycardia has improved. Leukocytosis persists. Blood cultures drawn 02/19/17 are positive 2/2 sets for K. pneumoniae. Repeat blood cultures drawn 02/23/17 are NGTD x 2 sets. Etiology of recurrent leukocytosis unclear. She did get a dose of steroids on admission, so it could be related to that. Clinically, the patient appears improved today. Discontinue Vanc and Zosyn. Start Levaquin 750mg IV daily. Duration of treatment depends on the clinical picture, but given the patient's bacteremia with unknown source, will likely need two weeks of IV antibiotics and then we will consider switching to orals based on the clinical picture. Monitor renal function and for drug toxicity and dose-adjust antibiotics. Consult VAT for EPIC placement. Check weekly CBC, BUN/Cr, ESR, and CRP every Sunday. Will need weekly EPIV care. Follow up with ID 03/19/17 at 0900. Qualifiers: Sepsis type: sepsis due to unspecified organism Qualified Code(s): A41.9 - Sepsis, unspecified organism (2) Bacteremia Current Visit: Yes Status: Acute Causative organism K. pneumoniae. Source unclear, but concern for intra-abdominal source given the cystic lesion on the liver and her abdominal pain. CT of the chest showed a cystic lesion in the left liver lobe with mild stranding about the left adrenal gland. CT of the abdomen and pelvis showed re-demonstration of the cyst, but no evidence of abscess. No urinary symptoms. The patient does have a possible PNA on CXR, but not convinced that it is the source of the patient's bacteremia. Consider repeating CT scan of the abdomen with PO and IV contrast to evaluate and get CT chest to evaluate for PNA. Blood cultures drawn 02/19/17 were positive 2/2 sets. Repeat blood cultures drawn 02/23/17 are NGTD x 2 sets. Antibiotic recommendations as above for now. Duration of treatment depends on the clinical picture. (3) Liver lesion Current Visit: Yes Status: Acute Originally noted on CTA of the chest 02/19/17. Dedicated CT of the abdomen and pelvis showed re-demonstration of the cyst. No evidence of abscess noted on CT scan, but etiology of cyst not entirely clear. If patient continues to have leukocytosis and/or bacteremia recurs, may need to consider biopsy of the cyst to evaluate for infection. 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 Consider evaluation by orthopedic oncology as recommended per the radiologist. (5) Hypokalemia Current Visit: Yes Status: Acute (6) Patellar fracture Current Visit: No Status: Acute Status post ORIF 01/29/17. Clinically, the surgical site does not appear infected. CT of the right knee showed a mild effusion and post-op changes. Ortho consulted and following. Qualifiers: Encounter type: initial encounter Fracture type: closed Fracture morphology: comminuted Fracture alignment: nondisplaced Laterality: right Qualified Code(s): S82.044A - Nondisplaced comminuted fracture of right patella , initial encounter for closed fracture (7) Humerus fracture Current Visit: No Status: Acute CT of the left shoulder shows post-op changes, but no evidence of acute infection. Clinically, the shoulder does not appear infected. Ortho consulted and following. Qualifiers: Encounter type: initial encounter Humerus Location: supracondylar fracture without intercondylar fracture Fracture type: closed Fracture morphology: comminuted Fracture alignment: displaced Laterality: left Qualified Code(s ): S42.422A - Displaced comminuted supracondylar fracture without intercondylar fracture of left humerus, initial encounter for closed fracture (8) GERD (gastroesophageal reflux disease) Current Visit: No Status: Chronic Qualifiers: Esophagitis presence: without esophagitis Qualified Code(s): K21.9 - Gastro -esophageal reflux disease without esophagitis (9) COPD (chronic obstructive pulmonary disease) Current Visit: Yes Status: Chronic Qualifiers: COPD type: unspecified COPD Qualified Code(s): J44.9 - Chronic obstructive pulmonary disease, unspecified (10) CAD (coronary artery disease) Current Visit: No Status: Chronic Qualifiers: Coronary Disease-Associated Artery/Lesion type: [place] artery [place] vs. transplanted heart: [place] heart Associated angina: without angina Qualified Code(s): I25.10 - Atherosclerotic heart disease of [place] coronary artery without angina pectoris (11) Anxiety Current Visit: Yes Status: Acute - Subjective Interval history: Patient seen and examined. No acute events noted overnight. Patient sitting up in the bedside chair, attempting to get back to bed with her family's help. States that overall she feels better. She does report continued pain in the left shoulder, right knee, and right abdomen, but states her belly pain continues to improve. She denies any fevers or chills or rigors. Denies any headache or neck pain. Denies any chest pain or shortness of breath, but appears dyspneic upon my entrance into the room. She does report an intermittent nonproductive cough. She denies any nausea, vomiting, diarrhea, or constipation. She states she had a bowel movement this morning. She states her appetite continues to improve. She denies any urinary complaints. She denies any oral thrush or new skin lesions. Infect Dis PN-Objective Data - Labs CBC & Chem 7: 02/28/17 05:33 02/28/17 05:33 Labs: Laboratory Results - last 24 hr 02/28/17 02/28/17 05:33 05:33 WBC 14.1 H RBC 3.29 L Hgb 10.0 L Hct 31.8 L MCV 96.7 MCH 30.4 MCHC 31.4 L RDW 13.1 Plt Count 265 MPV 9.8 Sodium 133 L Potassium 3.6 Chloride 90 L Carbon Dioxide 36 H BUN 9 Creatinine 0.64 Est GFR ( Amer) > 60 Est GFR (Non-Af Amer) > 60 BUN/Creatinine Ratio 14 Glucose 103 H Calculated Osmolality 275 L Calcium 8.4 L Cultures: Cultures 02/23/17 16:20 Blood Culture - Preliminary Peripheral Venipuncture No growth. 02/23/17 16:20 Blood Culture - Preliminary Peripheral Venipuncture No growth. Exam - Constitutional Vitals: Temp Pulse Resp BP Pulse Ox 98.6 F 87 16 111/69 95 02/28/17 12:00 02/28/17 12:00 02/28/17 12:00 02/28/17 12:00 02/28/17 12:00 General appearance: cooperative, morbidly obese, no acute distress - Head Head exam: Present: atraumatic, normal inspection, normocephalic - Eye Eye exam: Present: EOMI, normal appearance, PERRL Pupils: Present: normal accommodation - ENT ENT exam: Present: mucous membranes moist - Neck Neck exam: Present: normal inspection - Respiratory Respiratory exam: Present: CTAB, respiratory distress (mild, on exertion, improved with rest.). Absent: rales, rhonchi, wheezes - Cardiovascular Cardiovascular exam: Present: RRR, +S1, +S2 - GI/Abdominal GI/Abdominal exam: Present: distended (obese), normal bowel sounds, soft. Absent: tenderness - Extremities Exam Extremities exam: Present: joint swelling (Mild, right knee, left shoulder), pedal edema (1+ BLE), tenderness (Mild, right knee, left shoulder) Additional comments: Left anterior shoulder surgical site with honeycomb dressing C/D/I without redness, warmth, or drainage. ROM not assessed. Right anterior knee surgical site with honeycomb dressing C/D/I without redness , warmth, or drainage. Hinged knee brace noted. ROM not assessed. - Neurological Exam Neurological exam: Present: alert, oriented X3, no focal deficits - Psychiatric Psychiatric exam: Present: normal affect, normal mood - Skin Skin exam: Present: dry, intact, normal color, warm - VTE Documentation of Mechanical Device: Venous foot pump, device Consult Discharge Plan - Plan Instructions: Sepsis (DC) Additional Instructions: Follow-up with primary care provider next 3-5 days - Utilize home health services - Complete antibiotic therapy - Participate in physical therapy. Referrals: Dion Whitman MD [Primary Care Provider] - 03/06/17 3:00 pm () Tiffany Gottlieb PAC [Physician Cord Splicer] - 03/02/17 8:15 am Monica Raymond AUTOMATIC SPINNING LATHE OPERATOR [Advanced Practice Nurse] - 03/19/17 9:00 am Prescriptions: Levofloxacin 750 MG/150 ML [Levaquin Premix 750mg/150 mL] 750 mg IVPB DAILY #28 bag
--- NOTE | 2017-02-28 17:30 | Internal Med Progress Note ---
Date of Encounter: 02/28/17 Time of Encounter: 17:28 - Assessment and plan (1) Sepsis Current Visit: Yes Status: Acute Assessment and plan: Current Visit: Yes Status: Acute Assessment and plan: Sepsis possibly secondary to pneumonia and right knee surgical wound cellulitis , concerning for MRSA 66-year-old female admitted on 02/19/2017 presenting with tachycardia, febrile and elevated white blood cell count, blood cultures grew Klebsiella. Initial CTA showed no evidence of PE, cystic lesion of the left lobe of the liver and mild stranding a left adrenal gland was identified. Initial chest x-ray was normal. There was initial concern that the infection may be stemming from her recent right knee patella fixation completed in December. Orthopedic surgery did not believe that her surgical wounds were the causes of her current medical problem. She was initially started on Zosyn (from Feb 19-) and vancomycin(from ) but after sensitivities of blood cultures returned positive for Klebsiella she was continued on Levaquin only (Feb 20). Repeat blood cultures from 2016 were negative for growth. Mrs. Cook clinically started to decline on February 24. Evaluation with repeat chest x-ray was concerning for lower left consolidation forming and she was restarted on broad-spectrum antibiotics. - Clinically improved after restarting Zosyn (Feb 25) and Vancomycin () Infectious diseases recommended to restart Levaquin but my main concern is that the patient declined shortly after vancomycin was discontinued, on February 26, the first day I met the patient, her right knee surgical wound appeared very erythematous which improved after restarting vancomycin. I will restart vancomycin and cefepime and will discontinue Levaquin as the patient to get from February 20 of February 25 and is still declined clinically (2) Bacteremia Current Visit: Yes Status: Acute Assessment and plan: Antibiotic coverage broadened with Zosyn + Vanco yesterday given CXR findings Qualifiers: Sepsis type: sepsis due to unspecified organism Qualified Code(s): A41.9 - Sepsis, unspecified organism (3) HTN (hypertension) Current Visit: No Status: Chronic Assessment and plan: BP stable Qualifiers: Hypertension type: essential hypertension Qualified Code(s): I10 - Essential (primary) hypertension (4) SANJUANA (obstructive sleep apnea) Current Visit: No Status: Chronic Assessment and plan: continue CPAP at bedtime (5) GERD (gastroesophageal reflux disease) Current Visit: No Status: Chronic Assessment and plan: Patient developed epigastric discomfort 02/24 Increased omeprazole, pt sx improving Qualifiers: Esophagitis presence: without esophagitis Qualified Code(s): K21.9 - Gastro -esophageal reflux disease without esophagitis (6) COPD (chronic obstructive pulmonary disease) Current Visit: Yes Status: Chronic Assessment and plan: continue bronchodilator support O2 supplementation not in acute exacerbation Qualifiers: COPD type: unspecified COPD Qualified Code(s): J44.9 - Chronic obstructive pulmonary disease, unspecified (7) CAD (coronary artery disease) Current Visit: No Status: Chronic Qualifiers: Coronary Disease-Associated Artery/Lesion type: [place] artery [place] vs. transplanted heart: [place] heart Associated angina: without angina Qualified Code(s): I25.10 - Atherosclerotic heart disease of [place] coronary artery without angina pectoris (8) Liver lesion Current Visit: Yes Status: Acute Assessment and plan: -Incidental finding on CT chest -CT abd/pelvis reported benign-appearing posterior left hepatic lobe cystic mass but no evidence of liver abscess. Also heterogeneous partially visualized mass in the left anterior thigh musculature with mixed areas of hyperdensity and underlying fat which can be lipomatosis tumor including possible liposarcoma. MRI of left femur showed mass with fatty signal possibly benign lipomatous tumor but liposarcoma not excluded. Radiology recommends consultation with orthopedic oncologist for consideration of biopsy. We will refer to specialist as outpatient upon discharge -Liver biopsy reported: large septated cyst in the left lobe of the liver, this has increased in size since previous CT in 2004 Qualifiers: Sepsis type: sepsis due to unspecified organism Qualified Code(s): A41.9 - Sepsis, unspecified organism - Subjective Interval history: Feels better, denies any chest pain or shortness of breath, still not able to move her right knee without severe pain, no dysuria or diarrhea, no fevers - Constitutional Vitals: Temp Pulse Resp BP Pulse Ox 98.6 F 87 16 111/69 95 02/28/17 12:00 02/28/17 12:00 02/28/17 12:00 02/28/17 12:00 02/28/17 12:00 General appearance: Present: A&O X 3, no acute distress, obese, answers questions appropriately - Head Head exam: Present: atraumatic, normocephalic - Eye Eye exam: Present: PERRL, conjuntiva pink, sclera anicteric Pupils: Present: PERRL - Neck Neck exam general surgery: Present: supple, trachea midline. Absent: lymphadenopathy - Respiratory Respiratory exam: Present: CTAB. Absent: accessory muscle use, rales, rhonchi, wheezes - Cardiovascular Cardiovascular exam: Present: RRR, +S1, +S2. Absent: diastolic murmur, gallop, rubs, systolic murmur - GI/Abdominal GI/Abdominal exam: Present: normal bowel sounds, soft, no peritoneal signs. Absent: distended, tenderness - Extremities Exam Extremities exam: Present: warm, radial pulses palpable and symmetrical. Absent : calf tenderness, cyanotic, pedal edema - Neurological Exam Neurological exam: Present: CN II-XII intact, oriented X3, no focal deficits. Absent: pronater drift, facial droop, speech deficit - Skin Skin exam: Present: dry. Absent: intact Additional comments: Right knee surgical wound appears less erythematous, naphthalene still operator to touch, warm. Left shoulder surgical wound appears clean Internal Medicine: Result - Labs CBC & Chem 7: 02/28/17 05:33 02/28/17 05:33 Labs: Short CBC 02/28/17 Range/Units 05:33 WBC 14.1 H (4.3-11.1) K/mcL Hgb 10.0 L (11.5-15.4) g/dL Hct 31.8 L (35.3-44.9) % Plt Count 265 (140-400) K/mcL BMP 02/28/17 05:33 Sodium 133 L Potassium 3.6 Chloride 90 L Carbon Dioxide 36 H BUN 9 Creatinine 0.64 Glucose 103 H Calcium 8.4 L - ABG Interpretation ABG results: PT/INR, D-dimer PT 18.0 Seconds (9.4-12.1) H 02/20/17 02:41 - VTE Documentation of Mechanical Device: Venous foot pump, device Consult Discharge Plan - Plan Instructions: Sepsis (DC) Additional Instructions: Follow-up with primary care provider next 3-5 days - Utilize home health services - Complete antibiotic therapy - Participate in physical therapy. Referrals: Dion Whitman MD [Primary Care Provider] - 03/06/17 3:00 pm () Bull,Tiffany E, PAC [Physician Fitting Room Associate] - 03/02/17 8:15 am Monica Raymond COLOR DEPOSITING MACHINE TENDER [Advanced Practice Nurse] - 03/19/17 9:00 am Prescriptions: Levofloxacin 750 MG/150 ML [Levaquin Premix 750mg/150 mL] 750 mg IVPB DAILY #28 bag
[2017-02-28] MEDS ORDERED: Vancomycin 1,750 MG in D5% in Water 250 ML IVPB SCH (18:00)
[2017-02-28] MEDS ORDERED: Cefepime HCl 1,000 MG in D5% in Water (Mini-Bag+) 100 ML IVPB SCH (18:00)
[2017-02-28] MEDS: Ipratropium/Albuterol Neb 3 ML IH PRN (20:13)
[2017-03-01] MEDS: Cefepime HCl 1,000 MG in Water for inj. (sterile) 10 ML IVP SCH (06:15)
[2017-03-01] MEDS: *HR* Heparin 5,000 UNIT/ML VIAL SQ SCH ×2 (06:16→17:13)
[2017-03-01] MEDS: Budesonide/Formoterol 160/4.5 MDI IH SCH (07:54)
[2017-03-01 08:00] LABS: Hematocrit 29.3 % (35.3-44.9); Hemoglobin 9.4 g/dL (11.5-15.4); Mean Corpuscular HGB Conc 32.1 g/dL (31.6-35.5); Mean Corpuscular Volume 96.7 fL (83.0-100.0); Mean Platelet Volume 9.6 fL (9.4-12.4); Platelet Count 300 K/mcL (140-400); Red Blood Count 3.03 M/mcL (3.82-4.97); Red Cell Distribution Width 13.1 % (11.5-14.5)
[2017-03-01 08:08] LABS: BUN/Creatinine Ratio 14 (6-26); Blood Urea Nitrogen 9 mg/dL (7-20); Calcium 8.6 mg/dL (8.6-10.8); Carbon Dioxide 36 mEq/L (19-29); Chloride 90 mEq/L (98-109); Glucose 103 mg/dL (70-99); Osmolality,Calculated 277 (280-300); Potassium 3.8 mEq/L (3.5-4.5); Sodium 134 mEq/L (136-145); eGFR For African Americans > 60 (> 60); eGFR For Non-African Americans > 60 (> 60)
[2017-03-01] MEDS: Aspirin 81 MG TAB.CHEW PO SCH (08:09)
[2017-03-01] MEDS: Magnesium Oxide 400 MG TABLET PO SCH (08:09)
[2017-03-01] MEDS: Metoprolol XL (24 HR) Succ 50 MG TAB.ER.24H PO SCH (08:09)
[2017-03-01] MEDS: Vancomycin 1,250 MG in D5% in Water 250 ML IVPB SCH (08:10)
[2017-03-01] MEDS: *HR* OxyCODONE Immed Rel 5 MG TABLET PO PRN ×2 (11:01→17:13)
--- NOTE | 2017-03-01 14:49 | Discharge Summary ---
<JudithDolly - Last Filed: 03/01/17 15:07> Date of Encounter: 03/01/17 Time of Encounter: 14:32 - Discharge Diagnosis (1) Bacteremia Priority: Primary Status: Acute (2) Sepsis Priority: Secondary Status: Acute Qualifiers: Sepsis type: sepsis due to unspecified organism Qualified Code(s): A41.9 - Sepsis, unspecified organism (3) HTN (hypertension) Priority: Secondary Status: Chronic Qualifiers: Hypertension type: essential hypertension Qualified Code(s): I10 - Essential (primary) hypertension (4) SANJUANA (obstructive sleep apnea) Priority: Secondary Status: Chronic (5) GERD (gastroesophageal reflux disease) Priority: Secondary Status: Chronic Qualifiers: Esophagitis presence: without esophagitis Qualified Code(s): K21.9 - Gastro -esophageal reflux disease without esophagitis (6) COPD (chronic obstructive pulmonary disease) Priority: Secondary Status: Chronic Qualifiers: COPD type: unspecified COPD Qualified Code(s): J44.9 - Chronic obstructive pulmonary disease, unspecified (7) CAD (coronary artery disease) Priority: Secondary Status: Chronic Qualifiers: Coronary Disease-Associated Artery/Lesion type: [place]ski artery [place] vs. transplanted heart: belk[place]ski heart Associated angina: without angina Qualified Code(s): I25.10 - Atherosclerotic heart disease of [place]ski coronary artery without angina pectoris (8) Liver lesion Priority: Secondary Status: Acute - Discharge Medications Prescriptions: OxyCODONE Immed Rel [Roxicodone 5 MG] 5 mg PO Q6HR PRN #20 tablet PRN Reason: Pain ALPRAZolam [Xanax 0.25 MG Tablet] 0.25 mg PO Q8HR PRN #15 tablet PRN Reason: Anxiety Levofloxacin 750 MG/150 ML [Levaquin Premix 750mg/150 mL] 750 mg IVPB DAILY #24 bag Temazepam [Restoril] 15 mg PO HS PRN #5 capsule PRN Reason: Insomnia Vancomycin [Vancocin (wt based)] 1,250 mg IV Q12H #48 vial Home Medications: Ipratropium/Albuterol Neb [Duoneb] 3 ml IH QID PRN 08/12/15 [History] Omeprazole [PriLOSEC] 20 mg PO DAILY 08/12/15 [History] Aspirin 81 mg PO DAILY tab.chew 04/06/16 [Rx] Atorvastatin [Lipitor] 40 mg PO HS 01/26/17 [History] Fluticasone/Salmeterol [Advair 500-50 Diskus] 1 each IH BID 01/26/17 [History] Metoprolol Succinate 100 mg PO DAILY 01/26/17 [History] Docusate [Colace] 100 mg PO BID capsule 02/01/17 [Rx] Ergocalciferol (VITAMIN D2) [Drisdol (50,000 Unit)] 50,000 unit PO QWEEK capsule 02/01/17 [Rx] Losartan [Cozaar] 100 mg PO DAILY tablet 02/01/17 [Rx] Magnesium Oxide [Mag-Ox] 400 mg PO BID tablet 02/01/17 [Rx] Bumetanide [Bumex] 1.5 mg PO DAILY #45 tablet 02/16/17 [Rx] Potassium Chloride 10 meq PO DAILY #30 tab.er.prt 02/16/17 [Rx] ALPRAZolam [Xanax 0.25 MG Tablet] 0.25 mg PO Q8HR PRN #15 tablet 03/01/17 [Rx] Levofloxacin 750 MG/150 ML [Levaquin Premix 750mg/150 mL] 750 mg IVPB DAILY #24 bag 03/01/17 [Rx] OxyCODONE Immed Rel [Roxicodone 5 MG] 5 mg PO Q6HR PRN #20 tablet 03/01/17 [Rx] Temazepam [Restoril] 15 mg PO HS PRN #5 capsule 03/01/17 [Rx] Vancomycin [Vancocin (wt based)] 1,250 mg IV Q12H #48 vial 03/01/17 [Rx] Allergies/Adverse Reactions: 3 Allergy/AdvReac Type Severity Reaction Status Date / Time No Known Allergies Allergy Verified 08/09/15 16:58 Date of admission: 02/19/17 19:07 Primary care physician: Dion Whitman MD Consults: 02/20/17 03:25 Consult to Pulmonology [CONS] Routine Consulting Provider: [facility] [place] Reason for Consult: Klebsiella bacteremia Call Completed: No 02/20/17 14:49 Consult to Physical Therapy [CONS] Routine Comment: Evaluate, develop and implement POC Reason for Consult: S/p left shoulder and right knee surgery 3 weeks ago OT [Consult to Occupational Therapy] [CONS] Routine Comment: Evaluate, develop and implement POC Reason for Consult: S/p left shoulder and right knee surgery 3 weeks ago 02/21/17 17:50 Consult to Interventional Radiology [CONS] Routine Consulting Provider: Radiology Interventional [facility] Reason for Consult: liver lesion biopsy Call Completed: Yes 02/23/17 08:11 Consult to Orthopedic Surgery [CONS] Routine Consulting Provider: Ronen Mcdaniels Reason for Consult: Notifying that pt is in hospital with klebsiella bacteremia, source unclear. L Humerus ORIF / R Patella Fixation 01/29/17. Thank you Time Notified: 08:11 Call Completed: Yes 02/24/17 14:38 Consult to Invasive Line Access Team [CONS] Routine Reason for Consult: LIMITED ACCESS Line Type: EPIV 02/26/17 09:57 Consult to Infectious Diseases [CONS] Routine Consulting Provider: Purnima Cloud Reason for Consult: Klebsiella bacteremia, sepsis Time Notified: 09:58 Call Completed: Yes 02/28/17 14:03 Consult to Invasive Line Access Team [CONS] Routine Reason for Consult: EPIV INSERTION Line Type: EPIV 02/28/17 18:08 Consult to Android Architect [CONS] Routine Reason for SW Consult: discharge planning Discharging clinician: Dolly Wong Anticipated date of discharge: 03/01/17 - Patient Status Disposition: Transfer Inpatient Rehab Fac Condition: Fair Functional capacity at discharge: wheelchair bound Overall status at discharge: patient is not back to baseline - Ambulatory Orders Ambulatory Orders: Vancomycin,Trough [CHEM] Time Frame: 03/12/17, Facility: [facility], Location: Lab Vancomycin,Trough [CHEM] Time Frame: 03/19/17, Facility: [facility], Location: Lab Vancomycin,Trough [CHEM] Time Frame: 03/05/17, Facility: [facility], Location: Lab - Discharge Instructions Instructions: Sepsis (DC) Follow Up With: Dion Whitman MD [Primary Care Provider] - 03/06/17 3:00 pm (& also, , June 21, 2017 at 1:15 PM ) Tiffany Gottlieb, PAC [Physician Time Study Statistician] - 03/02/17 8:15 am Ganesh Mora MD [Partnered Physician] - 03/14/17 3:40 pm Monica Raymond CNP [Advanced Practice Nurse] - 03/19/17 9:00 am Additional Instructions: Follow-up with primary care provider next 3-5 days -inpatient rehab -inpatient detention, IV ABX for 28 days. - Utilize home health services - Complete antibiotic therapy - Participate in physical therapy. follow up with infectious disease and orthopedic surgery. - Diet and Activity Activity: as per physical therapy Diet: low fat, low cholesterol Hospital course: Ms. Cook is a 66 year old female with a past medical history of COPD, PA (2015 w/o stents), HTN, HLD, CHF, GERD, recent right knee and left shoulder surgery 01/26/2017. She presented to the hospital by EMS in mild distress complaining of overall malaise and fatigue that had worsened over the day. 4 SIRS criteria (T 103.2, HR 162, RR 22, WBC 14.7) on admission with lactic acid 1.4 upon admission. blood cultures positive for Klebsiella she was started on IV vancomycin, IV Zosyn. Blood cultures grew Klebsiella sensitive to Levaquin. IV vancomycin and Zosyn were discontinued she started on Levaquin. Liver ultrasound demonstrated there is a large septated cyst in the left lobe of the liver, biliary sludge, no gallstones. CT of the right knee Comminuted, displaced fracture through the patella, stable. There is an associated right knee effusion with adjacent soft tissue swelling and nonspecific subcutaneous edema surrounding the right knee. CT of the left shoulder demonstrates ORIF of the proximal left humeral head and neck fracture. There is a Hill-Sachs fracture noted. Fracture noted through the inferior aspect the left glenoid. Orthopedic surgery was consult and with concern with recent right knee replacement. After orthopedic evaluation determined that this was not related to recent operation of the knee or left shoulder. Patient demonstrated clinical decompensation after she was started on Levaquin. Chest x-ray demonstrated a left lower lobe airspace disease and possible trace pleural effusion. Patient was switched back to broad-spectrum antibiotics. Infectious diseases consulted and the patient was continued on vancomycin and Zosyn. She continues show clinical improvement throughout her inpatient stay and evaluation on 03/01/2017 deemed stable for discharge to their home with home health or inpatient facility. Antibiotics for the remaining course will be as follows: Vancomycin and Levaquin for a total of 28 days: start day of antibiotics: 02/25. Treat through 03/25/17. Exact source of infection was unknown, possibilities include lung vs. right knee cellulitis. Patient will get weekly vanc troughs, follow up with PCP, infectious disease, and ai bone and joint. she will be discharged to [facility] for IV antibiotics and therapy. - Time Spent with Patient Total time spent providing and/or coordinating discharge services: Less than 30 minutes - Constitutional Vitals: Temp Pulse Resp BP Pulse Ox 98.4 F 88 16 122/66 97 03/01/17 10:46 03/01/17 10:46 03/01/17 10:46 03/01/17 10:46 03/01/17 10:46 General appearance: Present: A&O X 3, no acute distress, obese, answers questions appropriately - Head Head exam: Present: atraumatic, normocephalic - Neck Neck exam general surgery: Present: supple, trachea midline - Respiratory Respiratory exam: Present: rhonchi, wheezes - Cardiovascular Cardiovascular exam: Present: RRR, +S1, +S2 - GI/Abdominal GI/Abdominal exam: Present: normal bowel sounds, soft. Absent: distended, tenderness - Extremities Exam Additional comments: +1 bilateral lower extremity pitting edema present. Right knee scar present from surgery. it is erythematous and mildly swollen. - Neurological Exam Neurological exam: Present: alert, oriented X3, no focal deficits - Psychiatric Psychiatric exam: Present: normal affect, normal mood - VTE Documentation of Mechanical Device: Venous foot pump, device <Josep Oviedo H - Last Filed: 03/01/17 15:30> Date of Encounter: 03/01/17 - Discharge Diagnosis (1) Sepsis Status: Acute Qualifiers: Sepsis type: sepsis due to unspecified organism Qualified Code(s): A41.9 - Sepsis, unspecified organism Date of admission: 02/19/17 19:07 Primary care physician: Dion Whitman MD Consults: 02/20/17 03:25 Consult to Pulmonology [CONS] Routine Consulting Provider: [facility] [place] Reason for Consult: Klebsiella bacteremia Call Completed: No 02/20/17 14:49 Consult to Physical Therapy [CONS] Routine Comment: Evaluate, develop and implement POC Reason for Consult: S/p left shoulder and right knee surgery 3 weeks ago OT [Consult to Occupational Therapy] [CONS] Routine Comment: Evaluate, develop and implement POC Reason for Consult: S/p left shoulder and right knee surgery 3 weeks ago 02/21/17 17:50 Consult to Interventional Radiology [CONS] Routine Consulting Provider: Radiology Interventional Cols Reason for Consult: liver lesion biopsy Call Completed: Yes 02/23/17 08:11 Consult to Orthopedic Surgery [CONS] Routine Consulting Provider: Ronen Mcdaniels Reason for Consult: Notifying that pt is in hospital with klebsiella bacteremia, source unclear. L Humerus ORIF / R Patella Fixation 01/29/17. Thank you Time Notified: 08:11 Call Completed: Yes 02/24/17 14:38 Consult to Invasive Line Access Team [CONS] Routine Reason for Consult: LIMITED ACCESS Line Type: EPIV 02/26/17 09:57 Consult to Infectious Diseases [CONS] Routine Consulting Provider: Infectious Disease [place] Reason for Consult: Klebsiella bacteremia, sepsis Time Notified: 09:58 Call Completed: Yes 02/28/17 14:03 Consult to Invasive Line Access Team [CONS] Routine Reason for Consult: EPIV INSERTION Line Type: EPIV 02/28/17 18:08 Consult to Android Architect [CONS] Routine Reason for SW Consult: discharge planning Hospital course: Ms. Cook is a 66 year old female - Time Spent with Patient Total time spent providing and/or coordinating discharge services: - Constitutional Vitals: Temp Pulse Resp BP Pulse Ox 98.4 F 88 16 122/66 97 03/01/17 10:46 03/01/17 10:46 03/01/17 10:46 03/01/17 10:46 03/01/17 10:46 - Attending Attestation Sepsis possibly secondary to pneumonia and right knee surgical wound cellulitis , concerning for MRSA as she responded to Vancomycin Klebsiella bacteriemia, unknown source he was initially started on Zosyn (from Feb 19) and vancomycin(from ) but after sensitivities of blood cultures returned positive for Klebsiella she was continued on Levaquin only (Feb 20). Repeat blood cultures from 2016 were negative for growth. Mrs. Cook clinically started to decline on February 24. Evaluation with repeat chest x-ray was concerning for lower left consolidation forming and she was restarted on broad-spectrum antibiotics. - Clinically improved after restarting Zosyn (Feb 25) and Vancomycin (26-29) Discharge on IV vancomycin, and Levaquin per ID recommendations I examined this patient and my medical decision-making was reviewed with the Resident Physician. I agree with the documented findings, disposition and treatment plan as described except to the extent set forth below.
--- NOTE | 2017-03-01 15:20 | Physician Discharge Referral ---
<Dolly Wong - Last Filed: 03/01/17 15:18> [facility] Referral Info Transfer To: ECF Provider in Charge after Transfer: PCP Institutional Level of Care: Skilled - Diagnosis (1) Bacteremia Priority: Primary Status: Acute (2) Sepsis Priority: Secondary Status: Acute (3) HTN (hypertension) Priority: Secondary Status: Chronic (4) SANJUANA (obstructive sleep apnea) Priority: Secondary Status: Chronic (5) GERD (gastroesophageal reflux disease) Priority: Secondary Status: Chronic (6) COPD (chronic obstructive pulmonary disease) Priority: Secondary Status: Chronic (7) CAD (coronary artery disease) Priority: Secondary Status: Chronic (8) Liver lesion Priority: Secondary Status: Acute Prognosis: Fair Aware of Diagnosis: Patient Aware of Prognosis: Patient - Transfer Medications Prescriptions: OxyCODONE Immed Rel [Roxicodone 5 MG] 5 mg PO Q6HR PRN #20 tablet PRN Reason: Pain ALPRAZolam [Xanax 0.25 MG Tablet] 0.25 mg PO Q8HR PRN #15 tablet PRN Reason: Anxiety Levofloxacin 750 MG/150 ML [Levaquin Premix 750mg/150 mL] 750 mg IVPB DAILY #24 bag Temazepam [Restoril] 15 mg PO HS PRN #5 capsule PRN Reason: Insomnia Vancomycin [Vancocin (wt based)] 1,250 mg IV Q12H #48 vial Home Medications: Ipratropium/Albuterol Neb [Duoneb] 3 ml IH QID PRN 08/12/15 [History] Omeprazole [PriLOSEC] 20 mg PO DAILY 08/12/15 [History] Aspirin 81 mg PO DAILY tab.chew 04/06/16 [Rx] Atorvastatin [Lipitor] 40 mg PO HS 01/26/17 [History] Fluticasone/Salmeterol [Advair 500-50 Diskus] 1 each IH BID 01/26/17 [History] Metoprolol Succinate 100 mg PO DAILY 01/26/17 [History] Docusate [Colace] 100 mg PO BID capsule 02/01/17 [Rx] Ergocalciferol (VITAMIN D2) [Drisdol (50,000 Unit)] 50,000 unit PO QWEEK capsule 02/01/17 [Rx] Losartan [Cozaar] 100 mg PO DAILY tablet 02/01/17 [Rx] Magnesium Oxide [Mag-Ox] 400 mg PO BID tablet 02/01/17 [Rx] Bumetanide [Bumex] 1.5 mg PO DAILY #45 tablet 02/16/17 [Rx] Potassium Chloride 10 meq PO DAILY #30 tab.er.prt 02/16/17 [Rx] ALPRAZolam [Xanax 0.25 MG Tablet] 0.25 mg PO Q8HR PRN #15 tablet 03/01/17 [Rx] Levofloxacin 750 MG/150 ML [Levaquin Premix 750mg/150 mL] 750 mg IVPB DAILY #24 bag 03/01/17 [Rx] OxyCODONE Immed Rel [Roxicodone 5 MG] 5 mg PO Q6HR PRN #20 tablet 03/01/17 [Rx] Temazepam [Restoril] 15 mg PO HS PRN #5 capsule 03/01/17 [Rx] Vancomycin [Vancocin (wt based)] 1,250 mg IV Q12H #48 vial 03/01/17 [Rx] Allergies/Adverse Reactions: 3 Allergy/AdvReac Type Severity Reaction Status Date / Time No Known Allergies Allergy Verified 08/09/15 16:58 - Respiratory Orders Smoking Cessation: Smoking cessation has been advised. For more information, call the Reactivity Line at 8-155-QDGE-NOW. - Lab Orders Lab Orders: Other (include drug levels w/frequency) (vanc trough weekly ( scripts printed.) - Advance Directives Code Status: Full Code - Mobility Orders Ambulate - Rehabiliation Orders Rehab Potential: Fair Rehab Orders: Evaluation for Physical Therapy, Evaluation for Occupational Therapy - Treatments Skin tear care topically daily PRN per policy, May check for fecal impaction rectally daily PRN - Diet Orders Cardiac CERTIFICATION: I certify that the transfer of the above named patient to an Extended Care Facility is necessary for the continuing treatment of the diagnosis listed. The above information is true and accurate reflection of patient's current condition. Confidential - Redisclosure prohibited without a patient's written consent. <Josep Oviedo H - Last Filed: 03/01/17 15:30> - Diagnosis (1) Sepsis Status: Acute - Respiratory Orders Smoking Cessation: Smoking cessation has been advised. For more information, call the Reactivity Line at 7-886-VVJZ-NOW. CERTIFICATION: I certify that the transfer of the above named patient to an Extended Care Facility is necessary for the continuing treatment of the diagnosis listed. The above information is true and accurate reflection of patient's current condition. Confidential - Redisclosure prohibited without a patient's written consent.
--- NOTE | 2017-03-01 15:24 | Infectious Disease Progress No ---
Date of Encounter: 03/01/17 Time of Encounter: 15:21 - Assessment and Plan (1) Sepsis Current Visit: Yes Status: Acute The patient had three SIRS criteria on admission. Likely secondary to bacteremia. Improved. Fevers have resolved. Tachycardia has improved. Leukocytosis persists. Blood cultures drawn 02/19/17 are positive 2/2 sets for K. pneumoniae. Repeat blood cultures drawn 02/23/17 are negative x 2 sets. Etiology of recurrent leukocytosis unclear. She did get a dose of steroids on admission, so it could be related to that. Clinically, the patient appears improved today. Antibiotics discussed with the primary team. Concern that the patient's clinical status got worse when the Vancomycin was stopped last week. Spoke with Dr. Ramachandran who saw the patient early in her course of treatment and he reports concern about his exam findings of the right knee when he first saw the patient and that there was some redness around the surgical site. Clinically, the knee looks okay now. Continue Levaquin 750mg IV daily. Continue Vancomycin IV. Pharmacy to dose. Goal trough ~15. Duration of treatment depends on the clinical picture, but given the patient's bacteremia with unknown source, will likely need two weeks of IV antibiotics and then we will consider switching to orals based on the clinical picture. Monitor renal function and for drug toxicity and dose-adjust antibiotics. Check weekly CBC, BUN/Cr, ESR, and CRP every Sunday. Will need weekly EPIV care. Follow up with ID 03/19/17 at 0900. Qualifiers: Sepsis type: sepsis due to unspecified organism Qualified Code(s): A41.9 - Sepsis, unspecified organism (2) Bacteremia Current Visit: Yes Status: Acute Causative organism K. pneumoniae. Source unclear, but concern for intra-abdominal source given the cystic lesion on the liver and her abdominal pain. CT of the chest showed a cystic lesion in the left liver lobe with mild stranding about the left adrenal gland. CT of the abdomen and pelvis showed re-demonstration of the cyst, but no evidence of abscess. No urinary symptoms. The patient does have a possible PNA on CXR, but not convinced that it is the source of the patient's bacteremia. Consider repeating CT scan of the abdomen with PO and IV contrast to evaluate and get CT chest to evaluate for PNA. Blood cultures drawn 02/19/17 were positive 2/2 sets. Repeat blood cultures drawn 02/23/17 are negative x 2 sets. Antibiotic recommendations as above for now. Duration of treatment depends on the clinical picture. (3) Liver lesion Current Visit: Yes Status: Acute Originally noted on CTA of the chest 02/19/17. Dedicated CT of the abdomen and pelvis showed re-demonstration of the cyst. No evidence of abscess noted on CT scan, but etiology of cyst not entirely clear. If patient continues to have leukocytosis and/or bacteremia recurs, may need to consider biopsy of the cyst to evaluate for infection. 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 Consider evaluation by orthopedic oncology as recommended per the radiologist. (5) Hypokalemia Current Visit: Yes Status: Acute (6) Patellar fracture Current Visit: No Status: Acute Status post ORIF 01/29/17. Clinically, the surgical site does not appear infected at this point, but Dr. Ramachandran reports his concern that the knee looked worse clinically earlier in the patient's course of treatment. CT of the right knee showed a mild effusion and post-op changes. Ortho consulted and following. Qualifiers: Encounter type: initial encounter Fracture type: closed Fracture morphology: comminuted Fracture alignment: nondisplaced Laterality: right Qualified Code(s): S82.044A - Nondisplaced comminuted fracture of right patella , initial encounter for closed fracture (7) Humerus fracture Current Visit: No Status: Acute CT of the left shoulder shows post-op changes, but no evidence of acute infection. Clinically, the shoulder does not appear infected. Ortho consulted and following. Qualifiers: Encounter type: initial encounter Humerus Location: supracondylar fracture without intercondylar fracture Fracture type: closed Fracture morphology: comminuted Fracture alignment: displaced Laterality: left Qualified Code(s ): S42.422A - Displaced comminuted supracondylar fracture without intercondylar fracture of left humerus, initial encounter for closed fracture (8) GERD (gastroesophageal reflux disease) Current Visit: No Status: Chronic Qualifiers: Esophagitis presence: without esophagitis Qualified Code(s): K21.9 - Gastro -esophageal reflux disease without esophagitis (9) COPD (chronic obstructive pulmonary disease) Current Visit: Yes Status: Chronic Qualifiers: COPD type: unspecified COPD Qualified Code(s): J44.9 - Chronic obstructive pulmonary disease, unspecified (10) CAD (coronary artery disease) Current Visit: No Status: Chronic Qualifiers: Coronary Disease-Associated Artery/Lesion type: [place] artery [place] vs. transplanted heart: [place] heart Associated angina: without angina Qualified Code(s): I25.10 - Atherosclerotic heart disease of [place] coronary artery without angina pectoris (11) Anxiety Current Visit: Yes Status: Acute - Subjective Interval history: Patient seen and examined. No acute events noted overnight. Patient sitting up in the bedside chair. States that overall she continues to feel better. She does report continued pain in the left shoulder, right knee. She denies any fevers or chills or rigors. Denies any headache or neck pain. Denies any chest pain or shortness of breath or cough. She denies any nausea, vomiting, diarrhea , or constipation. She states she had a bowel movement this morning. She states her appetite continues to improve. She denies any urinary complaints. She denies any oral thrush or new skin lesions. Infect Dis PN-Objective Data - Labs CBC & Chem 7: 03/01/17 07:38 03/01/17 07:38 Labs: Laboratory Results - last 24 hr 03/01/17 03/01/17 07:38 07:38 WBC 15.7 H RBC 3.03 L Hgb 9.4 L Hct 29.3 L MCV 96.7 MCH 31.0 MCHC 32.1 RDW 13.1 Plt Count 300 MPV 9.6 Sodium 134 L Potassium 3.8 Chloride 90 L Carbon Dioxide 36 H BUN 9 Creatinine 0.63 Est GFR ( Amer) > 60 Est GFR (Non-Af Amer) > 60 BUN/Creatinine Ratio 14 Glucose 103 H Calculated Osmolality 277 L Calcium 8.6 Cultures: Cultures 02/23/17 16:20 Blood Culture - Final Peripheral Venipuncture No growth. 02/23/17 16:20 Blood Culture - Final Peripheral Venipuncture No growth. Exam - Constitutional Vitals: Temp Pulse Resp BP Pulse Ox 98.4 F 88 16 122/66 97 03/01/17 10:46 03/01/17 10:46 03/01/17 10:46 03/01/17 10:46 03/01/17 10:46 General appearance: cooperative, morbidly obese, no acute distress - Head Head exam: Present: atraumatic, normal inspection, normocephalic - Eye Eye exam: Present: EOMI, normal appearance, PERRL Pupils: Present: normal accommodation - ENT ENT exam: Present: mucous membranes moist - Neck Neck exam: Present: normal inspection - Respiratory Respiratory exam: Present: wheezes (Fine expiratory wheezes throughout.). Absent: rales, respiratory distress, rhonchi - Cardiovascular Cardiovascular exam: Present: RRR, +S1, +S2 - GI/Abdominal GI/Abdominal exam: Present: distended (obese), normal bowel sounds, soft. Absent: tenderness - Extremities Exam Additional comments: Left anterior shoulder surgical incision [employer] with wound edges well- approximated. No redness, warmth, or drainage noted. Right anterior knee surgical site [employer]ER with wound edges well-approximated. 2+ edema noted to the RLE, but no redness, warmth or drainage noted. Mild tenderness noted on palpation. Hinged knee brace in place. - Neurological Exam Neurological exam: Present: alert, oriented X3, no focal deficits - Psychiatric Psychiatric exam: Present: normal affect, normal mood - Skin Skin exam: Present: dry, intact, normal color, warm - VTE Documentation of Mechanical Device: Venous foot pump, device Consult Discharge Plan - Plan Instructions: Sepsis (DC) Additional Instructions: Follow-up with primary care provider next 3-5 days -inpatient rehab -inpatient [facility], IV ABX for 28 days. - Utilize home health services - Complete antibiotic therapy - Participate in physical therapy. follow up with infectious disease and orthopedic surgery. Referrals: Dion Whitman MD [Primary Care Provider] - 03/06/17 3:00 pm (& also, , June 21, 2017 at 1:15 PM ) Tiffany Gottlieb PAC [Physician Loan Documentation Specialist] - 03/02/17 8:15 am Ganesh Mora MD [Partnered Physician] - 03/14/17 3:40 pm Monica Raymond [employer]N LAB TECHNICIAN [Advanced Practice Nurse] - 03/19/17 9:00 am Prescriptions: OxyCODONE Immed Rel [Roxicodone 5 MG] 5 mg PO Q6HR PRN #20 tablet PRN Reason: Pain ALPRAZolam [Xanax 0.25 MG Tablet] 0.25 mg PO Q8HR PRN #15 tablet PRN Reason: Anxiety Levofloxacin 750 MG/150 ML [Levaquin Premix 750mg/150 mL] 750 mg IVPB DAILY #24 bag Temazepam [Restoril] 15 mg PO HS PRN #5 capsule PRN Reason: Insomnia Vancomycin [Vancocin (wt based)] 1,250 mg IV Q12H #48 vial
--- NOTE | 2017-03-01 17:40 | Orthopedics Progress Note ---
Date of Encounter: 03/01/17 Time of Encounter: 12:45 - Assessment and Plan (1) S/P ORIF (open reduction internal fixation) fracture Current Visit: Yes Status: Acute left open reduction internal fixation humerus proximal humerus, rotator cuff repair, open reduction internal fixation right patella. Date of surgery - Continue with hospital course per hospitalist and infectious disease. Xrays ordered as patient was originally scheduled for POW#4 visit with this provider at outpatient [facility] office tomorrow. Continue in slingshot and TROM brace in locked extension until follow up with Dr. Mora next week. (2) Glenoid fracture of shoulder Current Visit: Yes Status: Acute Qualifiers: Encounter type: initial encounter Fracture type: closed Laterality: left Qualified Code(s): S42.142A - Displaced fracture of glenoid cavity of scapula , left shoulder, initial encounter for closed fracture; S42.152A - Displaced fracture of neck of scapula, left shoulder, initial encounter for closed fracture; S42.152A - Displaced fracture of neck of scapula, left shoulder, initial encounter for closed fracture Subjective Principal diagnosis: s/p left ORIF humerus and right patella ORIF Interval history: Patient is now 4 weeks post op of left open reduction internal fixation humerus proximal humerus, rotator cuff repair, open reduction internal fixation right patella. Date of surgery -01/29/[address] Mora. Patient seen at bedside with daughter at bedside. Patient states she is doing better. Patient in left slingshot brace to arm. Patient in locked extension TROM to RLE. Dressings removed by this provider to both right knee and left shoulder. Dry skin noted to both incisions, cleansed thoroughly with alcohol. Right knee incision is clean, dry, and intact with stable in appearance with mild erythema however no induration or drainage. Left shoulder incision clean dry and intact with no erythema or petechiae or induration. Patient is neurovascularly intact to all extremities with no calf tenderness. Patient alert and oriented sitting in bedside chair. Continue with hospital course per hospitalist and infectious disease. Xrays ordered as patient was originally scheduled for POW#4 visit with this provider at outpatient [facility] office tomorrow. Continue in slingshot and TROM brace in locked extension until follow up with Dr. Mora next week. Objective Vital signs: Vital Signs Temp Pulse Resp BP Pulse Ox 03/01/17 15:00 98.5 F 94 16 128/73 98 03/01/17 10:46 98.4 F 88 16 122/66 97 03/01/17 07:55 18 95 03/01/17 07:00 98.7 F 98 18 143/76 95 02/28/17 23:56 99.0 F 95 19 142/85 93 02/28/17 20:12 18 94 02/28/17 19:30 99.0 F 92 18 145/64 93 Intake and Output 03/01/17 03/01/17 03/01/17 07:59 15:59 23:59 Intake Total 700 / 700 Output Total 2800 / 2800 300 / 300 Balance -2100 / -2100 -300 / -300 Intake: Oral 700 / 700 Output: Urine 2800 / 2800 300 / 300 Other: Stool Size Small Stool Consistency soft formed Stool Color Brown # Voids 1 # Bowel Movements 1 - Labs CBC & BMP: 03/01/17 07:38 03/01/17 07:38 Labs: Abnormal lab results WBC 15.7 K/mcL (4.3-11.1) H 03/01/17 07:38 RBC 3.03 M/mcL (3.82-4.97) L 03/01/17 07:38 Hgb 9.4 g/dL (11.5-15.4) L 03/01/17 07:38 Hct 29.3 % (35.3-44.9) L 03/01/17 07:38 Neutrophils # 9.7 K/mcL (1.6-8.9) H 02/27/17 06:32 Nucleated RBCs/100 WBC 0.2 /100 WBC (0) H 02/27/17 06:32 Immature Plt Fraction 6.3 % (1.1-6.1) H 02/26/17 05:20 PT 18.0 Seconds (9.4-12.1) H 02/20/17 02:41 VBG pCO2 63 mmHg (41-51) H 02/24/17 04:18 VBG pO2 78 mmHg (25-50) H 02/24/17 04:18 VBG HCO3 38 mEq/L (21-27) H 02/24/17 04:18 VBG Hematocrit 23.0 % (35.3-44.9) L 02/21/17 16:02 Sodium 134 mEq/L (136-145) L 03/01/17 07:38 Chloride 90 mEq/L (98-109) L 03/01/17 07:38 Carbon Dioxide 36 mEq/L (19-29) H 03/01/17 07:38 Glucose 103 mg/dL (70-99) H 03/01/17 07:38 Whole Bld Glucose 125 mg/dl (65-95) H 02/21/17 16:02 POC Glucose 156 (58-89) H 02/20/17 07:27 Calculated Osmolality 277 (280-300) L 03/01/17 07:38 Venous Ioniz Calcium 1.11 mmol/L (1.15-1.35) L 02/25/17 05:47 Magnesium 1.4 mg/dL (1.6-2.6) L 02/27/17 06:32 Direct Bilirubin 0.6 mg/dL (0.0-0.5) H 02/19/17 16:44 C-Reactive Protein 128 mg/L (Less than 5) H 02/19/17 16:44 Serum Total Protein 5.6 g/dL (6.0-8.3) L 02/20/17 02:41 Albumin 2.3 g/dL (3.5-5.0) L 02/20/17 02:41 Albumin/Globulin Ratio 0.7 (1.1-2.2) L 02/20/17 02:41 TSH 0.190 mcIU/mL (0.350-4.840) L 02/20/17 02:41 Urine Protein 30 mg/dL (Neg-Trace) H 02/19/17 16:35 Urine Urobilinogen 4.0 mg/dL (Normal) H 02/19/17 16:35 Ur Squamous Epith Cells Many per lpf (None-Few) H 02/19/17 16:35 Vancomycin Trough 9.6 mcg/mL (10-20) L 02/27/17 06:32 Urine Opiates Screen Positive ng/mL (Quiwtl=536) H 02/19/17 16:35 U Benzodiazepines Scrn Positive ng/mL (Ktfwjx=099) H 02/19/17 16:35 Enterobacteriac sp PCR DETECTED (Not Detect) A 02/19/17 16:44 Klebsiella pneumoniae DETECTED (Not Detect) A 02/19/17 16:44 - VTE Documentation of Mechanical Device: Venous foot pump, device Consult Discharge Plan - Plan Instructions: Sepsis (DC) Additional Instructions: Follow-up with primary care provider next 3-5 days -inpatient rehab -inpatient [facility], IV ABX for 28 days. - Utilize home health services - Complete antibiotic therapy - Participate in physical therapy. follow up with infectious disease and orthopedic surgery. Referrals: Dion Whitman MD [Primary Care Provider] - 03/06/17 3:00 pm (& also, , June 21, 2017 at 1:15 PM ) Ganesh Mora MD [Partnered Physician] - 03/14/17 3:40 pm Monica Raymond CNP [Advanced Practice Nurse] - 03/19/17 9:00 am Prescriptions: OxyCODONE Immed Rel [Roxicodone 5 MG] 5 mg PO Q6HR PRN #20 tablet PRN Reason: Pain ALPRAZolam [Xanax 0.25 MG Tablet] 0.25 mg PO Q8HR PRN #15 tablet PRN Reason: Anxiety Levofloxacin 750 MG/150 ML [Levaquin Premix 750mg/150 mL] 750 mg IVPB DAILY #24 bag Temazepam [Restoril] 15 mg PO HS PRN #5 capsule PRN Reason: Insomnia Vancomycin [Vancocin (wt based)] 1,250 mg IV Q12H #48 vial
[2017-03-01 18:27] VITALS: BP 139/80
== END 2017-03-01 18:45 | DRG 871 ==
LOC: EMEROO 16:05 → ICNU 19:07 → SUATTDRO 19:07 → ICNU 20:25 → 2NNU 02-21 03:03 → 3NENU 02-28 01:43
PROVIDERS: ADMIT Internal Medicine; ATTEND Internal Medicine

== ENCOUNTER 2017-04-25 11:49 | Inpatient (IN) ==
[2017-04-25] MEDS ORDERED: Ipratropium/Albuterol Neb 3 ML IH ONE (12:00)
[2017-04-25] MEDS ORDERED: methylPREDNISolone 125 MG/2 ML VIAL IVP ONE (12:00)
[2017-04-25] MEDS ORDERED: 0.9 % Sodium Chloride 1,000 ML IVC ONE ×2 (12:04→14:25)
--- NOTE | 2017-04-25 12:19 | Emergency Department Note ---
Disposition Clinical Impression: Hypoxia, Elevated troponin Pneumonia Qualifiers: Pneumonia type: due to unspecified organism Laterality: unspecified laterality Lung location: unspecified part of lung Qualified Code(s): J18.9 - Pneumonia, unspecified organism Disposition: Admitted As Inpatient Condition: Fair General Adult HPI - General Chief complaint: ED Shortness of Breath/Dyspnea Stated complaint: ALYSSA Time Seen by Provider: 04/25/17 11:57 Source: patient, family Mode of arrival: ambulatory Limitations: no limitations Nursing Notes Reviewed: Yes Vital Signs Reviewed: Yes - History of Present Illness HPI Narrative: 66-year-old female history of diabetes, UPB presents for evaluation of dyspnea. Patient states and Monsel's been over the past 24 hours. States she felt " not right over the weekend". Patient states that she typically smokes and has home oxygen on 2 L but had increased that recently. The patient recently fell and broke her right ankle and knee and has been immobile. Patient states she has been using her albuterol inhaler. Denying any chest pain. Patient denies any other symptoms. No nausea. No vomiting. Pain Scale: 6 - Related Data Home Medications Medication Instructions Recorded Confirmed Ipratropium/Albuterol Neb [Duoneb] 3 ml IH QID PRN 08/12/15 04/25/17 Omeprazole [PriLOSEC] 20 mg PO DAILY 08/12/15 04/25/17 Atorvastatin [Lipitor] 40 mg PO HS 01/26/17 04/25/17 Metoprolol Succinate 100 mg PO DAILY 01/26/17 04/25/17 Ergocalciferol (VITAMIN D2) 50,000 unit PO ADLER 04/25/17 04/25/17 [Drisdol (50,000 Unit)] Escitalopram [Lexapro] 10 mg PO DAILY 04/25/17 04/25/17 HYDROcodone/Acet 5/325 mg [[place] 1 tab PO Q6H PRN 04/25/17 04/25/17 5-325 mg] Theophylline Anhydrous 200 mg PO DAILY 04/25/17 04/25/17 [Theophylline] Tiotropium [Spiriva] 1 puff IH DAILY 04/25/17 04/25/17 Previous Rx's Medication Instructions Recorded Aspirin 81 mg PO DAILY tab.chew 04/06/16 Losartan [Cozaar] 100 mg PO DAILY tablet 02/01/17 Magnesium Oxide [Mag-Ox] 400 mg PO BID tablet 02/01/17 Potassium Chloride 10 meq PO DAILY #30 tab.er.prt 02/16/17 ALPRAZolam [Xanax 0.25 MG Tablet] 0.25 mg PO Q8HR PRN #15 tablet 03/01/17 Aspirin Enteric Coated [Aspirin EC] 325 mg PO DAILY 21 Days #21 04/24/17 tablet. Ibuprofen [Motrin] 600 mg PO Q6HR PRN 7 Days #28 tab 04/24/17 OxyCODONE Immed Rel [Roxicodone 5 5 mg PO Q6HR PRN 7 Days #28 tablet 04/24/17 MG] Allergies Allergy/AdvReac Type Severity Reaction Status Date / Time No Known Allergies Allergy Verified 04/25/17 11:29 All systems ED: reviewed and negative except as stated. Constitutional: Reports: as per HPI. Denies: fever Eyes: Reports: as per HPI ENT ED: Reports: as per HPI Cardiovascular: Reports: as per HPI. Denies: chest pain Respiratory: Reports: as per HPI, dyspnea. Denies: cough, sputum production Gastrointestinal: Reports: as per HPI. Denies: abdominal pain, nausea, vomiting Genitourinary: Reports: as per HPI Musculoskeletal: Reports: as per HPI Integumentary: Reports: as per HPI Neurological: Reports: as per HPI Psychiatric: Reports: as per HPI Past Medical History - Past Medical History Source: patient Medical history: Reports: COPD, hypertension Surgical history: Reports: hysterectomy, orthopedic, other Psychiatric history: Reports: anxiety STATISTICS PROFESSOR history: Reports: no STATISTICS PROFESSOR history - Social History Smoking Status: Former smoker Smokeless Tobacco Status: No Alcohol use: Reports: none Drug use: Reports: none Physical Exam - General Limitations: no limitations General appearance: alert, other - Head Head exam: atraumatic, normocephalic, normal inspection - Eye Eye exam: Present: normal appearance, EOMI - ENT ENT exam: normal exam, mucous membranes moist - Neck Neck exam: Present: normal inspection, trachea midline - Chest Chest inspection: Present: normal inspection, symmetric chest wall rise - Respiratory Respiratory exam: Present: wheezes (Prominent right-sided inspiratory expiratory wheeze diminished bibasilar), accessory muscle use. Absent: respiratory distress - Cardiovascular Cardiovascular exam: Present: normal rhythm, tachycardia. Absent: systolic murmur - Abdominal Exam Abdominal exam: Present: soft, Non-Tender - Extremities Exam Extremities exam: Present: normal inspection. Absent: pedal edema - Back Exam Back exam: Present: normal inspection - Neurological Exam Neurological exam: Present: alert, oriented X3 - Skin Skin exam: Present: warm, dry, intact, normal color Course Course Narrative: Patient seen and examined. Patient appears to be in any acute distress. Patient with a troponin as well as steroids. Concerns of pulmonary embolism. Patient's while scores a 6 and will need evaluation with imaging. Patient will also get basic lab work, EKG. - Reevaluation(s) Reevaluation #1: Patient's troponin came back elevated. Patient likely has a pulmonary embolism. Patient will be started on anticoagulation. Patient denies any blood in her stool or black tarry stools. Patient denies any problems bleeding. Time: 12:43 Vital Signs Temperature 97.8 F 04/25/17 11:50 Pulse Rate 118 04/25/17 11:50 Respiratory Rate 26 04/25/17 11:50 Blood Pressure 152/104 04/25/17 11:50 O2 Sat by Pulse Oximetry 96 04/25/17 11:50 Temperature 98.3 F 04/25/17 15:57 Pulse Rate 98 04/25/17 15:57 Respiratory Rate 16 04/25/17 15:57 Blood Pressure 124/78 04/25/17 15:57 O2 Sat by Pulse Oximetry 91 04/25/17 15:57 Oxygen Delivery Oxygen Delivery Bipap Medical Decision Making - [facility] Narrative Medical decision making narrative: 66-year-old female presents from preop evaluation due to tachycardia and hypoxia. Patient has initial concerns of pulmonary embolism. Patient was moderate risk [place] but given the degree and concern a CT chest was performed. - Lab Data Lab results reviewed: Yes I reviewed the patient's lab results. Result diagrams: 04/25/17 12:07 04/25/17 12:07 Lab Results 04/25/17 04/25/17 04/25/17 Range/Units 12:07 12:07 12:07 WBC 18.7 H D (4.3-11.1) K/mcL RBC 4.39 (3.82-4.97) M/mcL Hgb 13.0 (11.5-15.4) g/dL Hct 40.3 (35.3-44.9) % MCV 91.8 (83.0-100.0) fL MCH 29.6 (28.0-33.3) pg MCHC 32.3 (31.6-35.5) g/dL RDW 13.3 (11.5-14.5) % Plt Count 402 H (140-400) K/mcL MPV 9.2 L (9.4-12.4) fL Immature Gran % 1.7 (0-4) % Seg Neutrophils % 90.2 % Lymphocytes % 4.0 % Monocytes % 3.9 % Eosinophils % 0.0 % Basophils % 0.2 % Neutrophils # 16.9 H (1.6-8.9) K/mcL Lymphocytes # 0.8 (0.6-4.6) K/mcL Monocytes # 0.7 (0.0-1.3) K/mcL Eosinophils # 0.0 (0.0-0.6) K/mcL Basophils # 0.0 (0.0-0.2) K/mcL PT (9.4-12.1) Seconds INR APTT (26.0-36.0) Seconds Sodium 134 L (136-145) mEq/L Potassium 3.6 (3.5-5.1) mEq/L Chloride 90 L (98-107) mEq/L Carbon Dioxide 38 H (23-29) mEq/L BUN 14 (8-23) mg/dL Creatinine 0.53 L (0.60-1.20) mg/dL Est GFR ( Amer) > 60 (> 60) Est GFR (Non-Af Amer) > 60 (> 60) BUN/Creatinine Ratio 26 (6-26) Glucose 112 H (70-105) mg/dL Calculated Osmolality 279 L (280-300) Lactic Acid (0.5-2.2) mmol/L Calcium 9.4 (8.6-10.3) mg/dL Troponin I 0.06 H* (< 0.04) ng/mL B-Natriuretic Peptide (Less than 100) pg/mL 04/25/17 04/25/17 04/25/17 Range/Units 12:07 12:07 12:07 WBC (4.3-11.1) K/mcL RBC (3.82-4.97) M/mcL Hgb (11.5-15.4) g/dL Hct (35.3-44.9) % MCV (83.0-100.0) fL MCH (28.0-33.3) pg MCHC (31.6-35.5) g/dL RDW (11.5-14.5) % Plt Count (140-400) K/mcL MPV (9.4-12.4) fL Immature Gran % (0-4) % Seg Neutrophils % % Lymphocytes % % Monocytes % % Eosinophils % % Basophils % % Neutrophils # (1.6-8.9) K/mcL Lymphocytes # (0.6-4.6) K/mcL Monocytes # (0.0-1.3) K/mcL Eosinophils # (0.0-0.6) K/mcL Basophils # (0.0-0.2) K/mcL PT 12.9 H (9.4-12.1) Seconds INR 1.2 APTT 32.2 (26.0-36.0) Seconds Sodium (136-145) mEq/L Potassium (3.5-5.1) mEq/L Chloride (98-107) mEq/L Carbon Dioxide (23-29) mEq/L BUN (8-23) mg/dL Creatinine (0.60-1.20) mg/dL Est GFR ( Amer) (> 60) Est GFR (Non-Af Amer) (> 60) BUN/Creatinine Ratio (6-26) Glucose (70-105) mg/dL Calculated Osmolality (280-300) Lactic Acid 0.7 (0.5-2.2) mmol/L Calcium (8.6-10.3) mg/dL Troponin I (< 0.04) ng/mL B-Natriuretic Peptide 173 H (Less than 100) pg/mL - Radiology Data Radiology results reviewed: Yes I reviewed the patient's radiology results. - EKG Data EKG #1 EKG attestation: Yes I reviewed and interpreted this EKG. EKG shows normal: sinus rhythm Rate: tachycardia Rhythm: NSR [place]/QRS: normal When compared to previous EKG there are: changes noted Interpretation: other (MAT) S.B.A.R. - S.B.A.R. Situation: Demographics Background: Presenting Complaint Assessment: Vital Signs, Course and respsone to treatment, Patient/Family Expectation Recommendation: Barrier(s) to disposition, Recommendation based on pending studies, treatments, or consults Kai Report Given to: Dr. Saravanan Quinn Repor Time: 13:04 Attestation Statement - Attestation Attestation: I examined this patient and my medical decision-making was reviewed with the Resident Physician. I agree with the documented findings, disposition and treatment plan as described except to the extent set forth below. Patient presented from the operating room where her surgery was canceled due to her being significantly hypoxic and tachycardic. She is on 2 L of oxygen at home, was saturating 79% on room air, 92% on 3 L. Moderate dyspnea on arrival. Lungs essentially clear. Suspicion for PE was high. Limited bedside echo performed by Dr. Macias with my assistance did not show evidence of right heart strain for pulmonary embolism. EKG did not show signs of right heart strain. Troponin came back at 8. CT scan was somewhat surprisingly negative for PE but positive for multifocal infiltrates. She does have a cough, no fever. She meet surge criteria, we will go ahead and treat for pneumonia with sepsis. Blood pressure and lactate are normal. Accepted for admission by the hospitalist. Critical care time: I was directly and primarily involved in the care of this patient for 35 minutes excluding procedures.
[2017-04-25 12:24] LABS: Basophils % 0.2 %; Hematocrit 40.3 % (35.3-44.9); Immature Granulocytes % 1.7 % (0-4); Lymphocytes # 0.8 K/mcL (0.6-4.6); Mean Corpuscular HGB Conc 32.3 g/dL (31.6-35.5); Mean Corpuscular Hemoglobin 29.6 pg (28.0-33.3); Mean Corpuscular Volume 91.8 fL (83.0-100.0); Mean Platelet Volume 9.2 fL (9.4-12.4); Monocytes # 0.7 K/mcL (0.0-1.3); Monocytes % 3.9 %; Neutrophils # 16.9 K/mcL (1.6-8.9); Platelet Count 402 K/mcL (140-400); Red Blood Count 4.39 M/mcL (3.82-4.97); Red Cell Distribution Width 13.3 % (11.5-14.5); Segmented Neutrophils % 90.2 %
[2017-04-25 12:36] LABS: BUN/Creatinine Ratio 26 (6-26); Blood Urea Nitrogen 14 mg/dL (8-23); Calcium 9.4 mg/dL (8.6-10.3); Carbon Dioxide 38 mEq/L (23-29); Chloride 90 mEq/L (98-107); Glucose 112 mg/dL (70-105); Osmolality,Calculated 279 (280-300); Potassium 3.6 mEq/L (3.5-5.1); Sodium 134 mEq/L (136-145); eGFR For African Americans > 60 (> 60); eGFR For Non-African Americans > 60 (> 60)
[2017-04-25] MEDS ORDERED: *HR* Heparin 5,000 UNIT/ML VIAL IVP ONE ×2 (12:42→21:23)
[2017-04-25] MEDS ORDERED: Heparin 25,000 UNIT/500 ML D5W 25,000 UNIT/500 ML BAG IVC SCH ×2 (12:45→21:30)
[2017-04-25 13:02] LABS: INR 1.2; Prothrombin Time 12.9 Seconds (9.4-12.1)
[2017-04-25 13:05] LABS: Activated Partial Thrombo Time 32.2 Seconds (26.0-36.0)
[2017-04-25] MEDS ORDERED: *HR* Morphine 2 MG/ML SYRINGE IVP PRN (14:17)
[2017-04-25] MEDS ORDERED: Ondansetron 4 MG/2 ML VIAL IVP PRN (14:17)
[2017-04-25] MEDS ORDERED: Naloxone 0.4 MG/ML INJ IVP PRN (14:17)
[2017-04-25] MEDS ORDERED: Albuterol 2.5 MG/3 ML NEBULIZER IH PRN (14:20)
--- NOTE | 2017-04-25 14:25 | Internal Med History&Physical ---
Date of Encounter: 04/25/17 Time of Encounter: 14:23 Assessment and Plan (1) Acute respiratory failure with hypoxia Current visit: Yes Status: Acute Multifactorial: Pneumonia, Sepsis, suspect ACS Continue BIPAP Patient is full code Prior history of intubation High risk for invasive mechanical ventilation if not improving on BiPAP, obtain STAT ABG (2) Sepsis Current visit: Yes Status: Acute Patient with tachycardia, WBC 77134, tachypnea, bilateral pneumonia, Send blood and sputum cultures, lactate is WNL. Continue IVF bolus, discontinue and monitor after current bag, patient wit elevated troponin and BNP Follow culture reports Qualifiers: Sepsis type: sepsis due to unspecified organism Qualified Code(s): A41.9 - Sepsis, unspecified organism (3) Pneumonia Current visit: Yes Status: Acute Suspect associated aspiration due to R pneumonia > Left Patient with no recent hospitalization Will start on Levaquin and Zosyn Continue O2 supplementation with BIPAp May transition to O2 by nasal canula Obtain ABG Qualifiers: Pneumonia type: due to unspecified organism Laterality: bilateral Lung location: unspecified part of lung Qualified Code(s): J18.9 - Pneumonia, unspecified organism (4) Elevated troponin Current visit: Yes Status: Acute Initial troponin of 8.13 Patient denies chest pain but she has significant shortness of breath, suspect anginal equivalent in a patient with known CAD Continue ASA, Lipitor, continue heparin drip ECHO stat Consult cardiology Cycle troponin (5) HTN (hypertension) Current visit: Yes Status: Chronic Controlled, hold blood pressure meds for now due to sepsis and borderline low blood pressures, will restart meds prn Qualifiers: Hypertension type: essential hypertension Qualified Code(s): I10 - Essential (primary) hypertension (6) SANJUANA (obstructive sleep apnea) Current visit: Yes Status: Chronic Currently on BIPAP, continue same (7) GERD (gastroesophageal reflux disease) Current visit: Yes Status: Chronic Continue home meds Qualifiers: Esophagitis presence: without esophagitis Qualified Code(s): K21.9 - Gastro -esophageal reflux disease without esophagitis (8) CAD (coronary artery disease) Current visit: Yes Status: Chronic As above Qualifiers: Coronary Disease-Associated Artery/Lesion type: [place] artery [place] vs. transplanted heart: [place] heart Associated angina: without angina Qualified Code(s): I25.10 - Atherosclerotic heart disease of [place] coronary artery without angina pectoris (9) Anxiety Current visit: Yes Status: Chronic Resume home doses of patient's benzos (10) DVT (deep venous thrombosis) Current visit: Yes Status: Suspected Suspected due to immobility, and swelling of R calf Obtain bilateral LE Doppler Continue heparin for ACS/suspected DVT till further evaluation Qualifiers: DVT location: lower extremity Affected thrombotic vein of extremity: unspecified vein of extremity Chronicity: acute Laterality: right Qualified Code(s): I82.401 - Acute embolism and thrombosis of unspecified deep veins of right lower extremity (11) Ankle fracture, right Current visit: Yes Status: Acute Orthopedics consultation when patient is more hemodynamically stable Qualifiers: Encounter type: initial encounter Fracture type: closed Qualified Code(s) : S82.891A - Other fracture of right lower leg, initial encounter for closed fracture Internal Medicine - H&P: HPI Chief complaint: Shortness of breath, oxygen was low Admitted From: Home Plans for Post Hospital Care: Transfer Inp Rehab Fac History of present illness: Ms. Cook is a 66 year old female with medical history of advanced emphysema and COPD, with previous intubation, not on home oxygen, hypertension, coronary artery disease. The patient presented to the hospital for her routine outpatient orthopedic surgery. She has been bedbound for the past 1 week after having fractured her right ankle. She has been minimally ambulatory for the past 3 months due to a right knee injury. Diarrhea. Patient had preoperative evaluation for surgery, she was found to be tachycardic and hypoxic with oxygen saturation in the 70s. The patient endorses shortness of breath at rest, and has been having mild cough prior to presentation to the hospital for her surgery. She denies chest pain she reports feeling extreme anxiety, she denies ankle swelling but reports that her right cough has been more swollen since she had a fracture. She denies sick contacts, no fever or chills, no nausea or vomiting diarrhea or any abdominal symptoms. She also denies neurologic symptoms. On presentation to the emergency room patient was tachycardic with the lowest heart rate 110, she was hypoxic and responding at this time to BiPAP with FiO2 of 50%. She is tachypneic respiratory 20/125 T, her blood pressure was within normal limits. She was started on heparin empirically for suspected pulmonary embolism. EKG shows sinus tachycardia. Angiogram of the chest shows no pulmonary embolism, but shows severe emphysema with bilateral pneumonia was under right longer on. Chemistry is unremarkable save for metabolic alkalosis. She has leukocytosis with left shift, and thrombocytosis. Lactate is normal, troponin was 8.3. BNP was 173. Physical examination the patient is laying flat in bed. Vital signs as stated above. She is in mild distress on BiPAP. She is able to speak full sentences, is able to lie flat. Her right lower extremity is everted and shorter than the left. Her right cough and swollen. Her chest has significant diminished air entry anteriorly auscultation. Heart sounds S1 and S2 only, abdomen is benign. She will be admitted to inpatient for management of acute hypoxic respiratory failure secondary to pneumonia, suspect aspiration, sepsis secondary to pneumonia, elevated troponin possibly from demand ischemia due to hypoxia, rule out acute coronary syndrome. Suspected right lower extremity DVT. Past Med Surg Social Fam HX - Past Medical History Medical history: COPD, hypertension Psychiatric history: anxiety - Past Surgical History Surgical History: hysterectomy, orthopedic, other - Social History Smoking Status: Former smoker Smokeless Tobacco Status: No Alcohol use: none Drug use: none - Family History Mother Living Status: Hx Family Cardiac Disorders: Yes Hx Family Cancer: Yes (colon ca) Hx Family Neurologic Disorders: Yes (cva) Hx Family HEENT Disorders: Yes (macular degeneration) Father Adopted: No Family Member Ethnicity: Non- Living Status: Hx Family Cardiac Disorders: Yes Hx Family Respiratory Disorders: No Hx Family Cancer: Yes (colon ca 1979) Hx Family GI Disorders: No Hx Family Endocrine Disorder: No Hx Family Neuromuscular Disorders: No Hx Family Neurologic Disorders: Yes (CVA with left side weakness) Hx Family HEENT Disorders: Yes (macular degeneration) Hx Family Autoimmune Disorders: No Internal Medicine - H&P: Meds Ipratropium/Albuterol Neb [Duoneb] 3 ml IH QID PRN 08/12/15 [History] Omeprazole [PriLOSEC] 20 mg PO DAILY 08/12/15 [History] Aspirin 81 mg PO DAILY tab.chew 04/06/16 [Rx] Atorvastatin [Lipitor] 40 mg PO HS 01/26/17 [History] Metoprolol Succinate 100 mg PO DAILY 01/26/17 [History] Losartan [Cozaar] 100 mg PO DAILY tablet 02/01/17 [Rx] Magnesium Oxide [Mag-Ox] 400 mg PO BID tablet 02/01/17 [Rx] Potassium Chloride 10 meq PO DAILY #30 tab.er.prt 02/16/17 [Rx] ALPRAZolam [Xanax 0.25 MG Tablet] 0.25 mg PO Q8HR PRN #15 tablet 03/01/17 [Rx] Aspirin Enteric Coated [Aspirin EC] 325 mg PO DAILY 21 Days #21 tablet.dr [Rx] Ibuprofen [Motrin] 600 mg PO Q6HR PRN 7 Days #28 tab 04/24/17 [Rx] OxyCODONE Immed Rel [Roxicodone 5 MG] 5 mg PO Q6HR PRN 7 Days #28 tablet [Rx] Ergocalciferol (VITAMIN D2) [Drisdol (50,000 Unit)] 50,000 unit PO ADLER 04/25/17 [ History] Escitalopram [Lexapro] 10 mg PO DAILY 04/25/17 [History] HYDROcodone/Acet 5/325 mg [[place] 5-325 mg] 1 tab PO Q6H PRN 04/25/17 [History] Theophylline Anhydrous [Theophylline] 200 mg PO DAILY 04/25/17 [History] Tiotropium [Spiriva] 1 puff IH DAILY 04/25/17 [History] 3 Allergy/AdvReac Type Severity Reaction Status Date / Time No Known Allergies Allergy Verified 04/25/17 11:29 All Systems PM: A 10-system review of systems was performed and is negative for pertinent findings except as documented above in the HPI. - Constitutional Constitutional: as per HPI - EENT Eyes: as per HPI Ears: as per HPI Nose, mouth and throat: as per HPI - Cardiovascular Cardiovascular ROS IM: as per HPI - Respiratory Respiratory: as per HPI - Gastrointestinal Gastrointestinal: as per HPI - Genitourinary Genitourinary: as per HPI - Musculoskeletal Musculoskeletal ROS IM: as per HPI - Integumentary Integumentary IM: as per HPI - Neurological Neurological ROS: as per HPI - Hematologic/Lymphatic Hematologic/Lymphatic: as per HPI - Constitutional Vitals: Temp Pulse Resp BP Pulse Ox 97.8 F 110 26 120/66 97 04/25/17 11:50 04/25/17 12:48 04/25/17 12:48 04/25/17 12:48 04/25/17 12:48 General appearance: Present: mild distress, A&O X 3, pleasant, obese - Head Head exam: Present: atraumatic, normocephalic - Eye Eye exam: Present: PERRL, conjuntiva pink, sclera anicteric Pupils: Present: PERRL - ENT ENT exam: Present: mucous membranes moist - Neck Neck exam general surgery: Present: supple, trachea midline. Absent: lymphadenopathy - Respiratory Additional comments: Severly diminshed air entry anteriorly bilaterally - Cardiovascular Cardiovascular exam: Present: RRR, +S1, +S2, tachycardia. Absent: diastolic murmur, gallop, rubs, systolic murmur - GI/Abdominal GI/Abdominal exam: Present: normal bowel sounds, soft, no peritoneal signs. Absent: distended, tenderness - Extremities Exam Additional comments: RLE everted and shorter than the left - Neurological Exam Neurological exam: Present: alert, CN II-XII intact, oriented X3, no focal deficits. Absent: pronater drift, facial droop, speech deficit - Skin Skin exam: Present: dry, intact Internal Med - H&P Results - Labs CBC & Chem 7: 04/25/17 12:07 04/25/17 12:07 Labs: Short CBC 04/25/17 Range/Units 12:07 WBC 18.7 H D (4.3-11.1) K/mcL Hgb 13.0 (11.5-15.4) g/dL Hct 40.3 (35.3-44.9) % Plt Count 402 H (140-400) K/mcL Neutrophils # 16.9 H (1.6-8.9) K/mcL BMP 04/25/17 12:07 Sodium 134 L Potassium 3.6 Chloride 90 L Carbon Dioxide 38 H BUN 14 Creatinine 0.53 L Glucose 112 H Calcium 9.4 Cardiac Enzymes 04/25/17 Range/Units 12:07 Troponin I 8.13 H* (< 0.04) ng/mL - Impressions ITS Impressions Chest CTA 04/25/17 12:08 IMPRESSION: 1. No evidence of pulmonary embolism 2. Multifocal bilateral infiltrates compatible with pneumonia on a background of pulmonary emphysema. Mildly enlarged hilar and mediastinal lymph nodes are likely reactive D/ / Drew Gramajo MD / Drew Gramajo MD Interpreting Provider: Drew Gramajo MD
[2017-04-25] MEDS: Ipratropium/Albuterol Neb 3 ML IH SCH ×2 (16:26→19:55)
--- NOTE | 2017-04-25 16:56 | Cardiology Consult Note ---
<MartychengJayla abbott H - Last Filed: 04/25/17 16:45> Date of Encounter: 04/25/17 Time of Encounter: 16:45 Assessment and Plan (1) Elevated troponin Current Visit: Yes Status: Acute Initial troponin 0.06 (first report was 8, however, lab re-ran test, and it was a faulty measurement), second set 0.03. -Patient with history of demand ischemia in 03/2016 during inpatient hospitalization, History of CAD. -Will make NPO after midnight -Non-exercise nuclear stress testing tomorrow. Discussion w patient/family: The assessment and plan as outlined above was discussed with the patient and/or family members who expressed understanding and agreement. All questions were answered. Thank you for involving us in the care of your patient. Please call with any questions. History of Present Illness Consult date: 04/25/17 Requesting physician: Man Coe Consult reason: Elevated troponin Chief complaint: Dyspnea History of present illness: Ms. Cook is a 66 year old female with past medical history of advanced emphysema and COPD, hypertension, and coronary artery disease. She presented to the [facility] on April 25, 2017 for routine outpatient orthopedic surgery on a broken ankle. Patient reported being bedbound for the previous week after sustaining a traumatic fall. She reports minimal activity over the past 3 months. Upon presentation to the hospital this morning, patient stated she felt very short of breath and her daughter stated her lips were blue. She was found to be tachycardic and hypoxic with oxygen saturation in the 70s. Patient reports history of shortness of breath at rest as well as a mild cough. She denies chest pain or pressure with no associated radiation. She denies any nausea or diaphoresis, fevers or chills. Patient was admitted to the hospital after being found to be in respiratory distress. She was started on BiPAP. CT of the chest shows no pulmonary embolism but did demonstrate severe emphysema with bilateral pneumonia. Patient denies orthopnea and is not demonstrating any pedal edema. Patient had an initial reported troponin of 8, however, the lab reported this as a mistake, and the accurate value was 0.06 with second set less than 0.03. Past Med Surg Social Fam HX - Past Medical History Attestation: Yes The following information was validated with the patient. Source: patient, old records reviewed Medical history: COPD, hypertension Psychiatric history: anxiety - Past Surgical History Surgical History: hysterectomy, orthopedic, other - Social History Smoking Status: Former smoker Smokeless Tobacco Status: No Alcohol use: none Drug use: none - Family History Mother Living Status: Hx Family Cardiac Disorders: Yes Hx Family Cancer: Yes (colon ca) Hx Family Neurologic Disorders: Yes (cva) Hx Family HEENT Disorders: Yes (macular degeneration) Father Adopted: No Family Member Ethnicity: Non- Living Status: Hx Family Cardiac Disorders: Yes Hx Family Respiratory Disorders: No Hx Family Cancer: Yes (colon ca 1979) Hx Family GI Disorders: No Hx Family Endocrine Disorder: No Hx Family Neuromuscular Disorders: No Hx Family Neurologic Disorders: Yes (CVA with left side weakness) Hx Family HEENT Disorders: Yes (macular degeneration) Hx Family Autoimmune Disorders: No Medications and Allergies Ipratropium/Albuterol Neb [Duoneb] 3 ml IH QID PRN 08/12/15 [History] Omeprazole [PriLOSEC] 20 mg PO DAILY 08/12/15 [History] Aspirin 81 mg PO DAILY tab.chew 04/06/16 [Rx] Atorvastatin [Lipitor] 40 mg PO HS 01/26/17 [History] Metoprolol Succinate 100 mg PO DAILY 01/26/17 [History] Losartan [Cozaar] 100 mg PO DAILY tablet 02/01/17 [Rx] Magnesium Oxide [Mag-Ox] 400 mg PO BID tablet 02/01/17 [Rx] Potassium Chloride 10 meq PO DAILY #30 tab.er.prt 02/16/17 [Rx] ALPRAZolam [Xanax 0.25 MG Tablet] 0.25 mg PO Q8HR PRN #15 tablet 03/01/17 [Rx] Ibuprofen [Motrin] 600 mg PO Q6HR PRN 7 Days #28 tab 04/24/17 [Rx] OxyCODONE Immed Rel [Roxicodone 5 MG] 5 mg PO Q6HR PRN 7 Days #28 tablet [Rx] Ergocalciferol (VITAMIN D2) [Drisdol (50,000 Unit)] 50,000 unit PO ADLER 04/25/17 [ History] Escitalopram [Lexapro] 10 mg PO DAILY 04/25/17 [History] HYDROcodone/Acet 5/325 mg [[place] 5-325 mg] 1 tab PO Q6H PRN 04/25/17 [History] Theophylline Anhydrous [Theophylline] 200 mg PO DAILY 04/25/17 [History] Tiotropium [Spiriva] 1 puff IH DAILY 04/25/17 [History] Bumetanide [Bumetanide] 0.5 mg PO DAILY 04/27/17 [History] Docusate [Colace] 100 mg PO BID 04/27/17 [History] 3 Allergy/AdvReac Type Severity Reaction Status Date / Time No Known Allergies Allergy Verified 04/25/17 11:29 All Systems Review: A 10-system review of systems was performed and is negative for pertinent findings except as documented above in the HPI. - Constitutional Constitutional: no fever(s), no headache(s), no lethargy - Cardiovascular Cardiovascular: no chest pain at rest, no chest pain with exertion, no diaphoresis, no radiating jaw, neck or arm pain, no lightheadedness, no orthopnea, no palpitations, no rapid heart rate, no syncope - Respiratory Respiratory: cough, dyspnea - Gastrointestinal Gastrointestinal: no abdominal pain, no coffee ground emesis - Genitourinary Genitourinary: no dysuria - Neurological Neurological: no abnormal speech Physical Examination Vital Signs, Last 4 Hours Temp Pulse Resp BP Pulse Ox 04/25/17 16:26 18 89 04/25/17 15:57 98.3 F 98 16 124/78 91 04/25/17 15:23 18 119/65 General: Conversant, No Apparent Distress HEENT: Atraumatic, Normocephaly Cardiac: Normal S1 and S2, Other (tachycardia) Lungs: Other (diminished breath sounds bilaterally) Neuro: Alert and responsive Abdomen: Soft, Non-Tender Extremities: No Clubbing, No Cyanosis, No Edema, Other (Patient with bruising and tenderness over the anterior aspect of right lower extremity) Results 04/25/17 12:07 04/25/17 12:07 Lab Results 04/25/17 14:44 Troponin I < 0.03 Consult Discharge Plan - Plan Referrals: Dion Whitman MD [Primary Care Provider] - <Zacarias Curtis - Last Filed: 04/27/17 17:30> Date of Encounter: 04/25/17 - Attending Attestation I examined this patient and my medical decision-making was reviewed with the Resident Physician. I agree with the documented findings, disposition and treatment plan as described except to the extent set forth below. CC: shortness of breath Pt admitted after evaluation for orthopedic surgery, after found to severely short of breath, tachycardic and appearing hypoxia. Pt has been at bedrest for the last three months, following a traumatic fall. Pt has baseline shortness of breath due to COPD, continues to smoke against medical advice. Pts initial evaluationi revealed a markedly elevated troponin of 8, recheck 0.06 and 0.03, the reading of 8 consistent with lab error. She denies chest pain, pressure or palpitations. She is very sedentary over last three months, but notes much more short of breath with minimal activity. She is now on O2, has received several breathing treatments, and reports shortness of breath has improved. PE: Reviewed as above, agree with the following changes, she has audible expiratory wheezes in both bases, trace pretibial edema bilaterally. IMP: 1. Elevated troponin - due to lab error, last two evaluations within normal limits, no acute changes 2. Acute exacerbation of COPD, responding to current tx, was on BiPap, 3. Benign essential hypertension, adequate controlled on current meds. 4. Tobacco abuse: active, discussed smoking cessation. 5. Dyspnea on exertion, unclear if due to deconditioning with prolonged bedrest , or if she has an ischemic substrate with shortness of breath as an anginal equivalent. Recommend Lexiscan Cardiolyte stress test and echocardiogram. dddddddddddddddddddddddddddddddddddddddddddddddddddddddddddddddddddddddddddddddd dddddddddddddddddddddddddddddddddddddddddddddddddddddddddddddddddddddddddddddddd ddddddddddddddddddddddddddddddddddddddddddddddddddddddddddddddddddddddd ddddddddddddddddddddddddddddddddddddddddddddddddddddddddddddddddddddddddddddddd Assessment and Plan Discussion w patient/family: The assessment and plan as outlined above was discussed with the patient and/or family members who expressed understanding and agreement. All questions were answered. Thank you for involving us in the care of your patient. Please call with any questions. History of Present Illness History of present illness: Ms. Cook is a 66 year old female All Systems Review: A 10-system review of systems was performed and is negative for pertinent findings except as documented above in the HPI. Physical Examination Vital Signs, Last 4 Hours Temp Pulse Resp BP Pulse Ox 04/27/17 16:01 18 93 04/27/17 15:42 96.8 F L 86 16 159/90 93 Results 04/26/17 04:53 04/26/17 04:53
[2017-04-25] MEDS: Levofloxacin 750 MG/150 ML 750 MG/150 ML BAG IVPB SCH (17:11)
[2017-04-25] MEDS: Piperacillin/Tazobactam 3.375 GM/200 ML BAG IVPB SCH (19:04)
[2017-04-25] MEDS: ALPRAZolam 0.25 MG TABLET PO PRN (20:44)
[2017-04-25] MEDS ORDERED: GuaiFENesin Liq 200 MG/10 ML UDC PO PRN (21:03)
[2017-04-25] MEDS ORDERED: *HR* Heparin 5,000 UNIT/ML VIAL IVP PRN ×2 (21:23)
[2017-04-25 22:12] LABS: Hematocrit 35.9 % (35.3-44.9); Hemoglobin 11.6 g/dL (11.5-15.4); Mean Corpuscular HGB Conc 32.3 g/dL (31.6-35.5); Mean Corpuscular Hemoglobin 29.4 pg (28.0-33.3); Mean Corpuscular Volume 91.1 fL (83.0-100.0); Mean Platelet Volume 9.1 fL (9.4-12.4); Platelet Count 344 K/mcL (140-400); Red Blood Count 3.94 M/mcL (3.82-4.97); Red Cell Distribution Width 13.3 % (11.5-14.5)
[2017-04-25 22:18] LABS: INR 1.2
[2017-04-25 22:21] LABS: Activated Partial Thrombo Time 36.2 Seconds (26.0-36.0)
[2017-04-25] MEDS: 0.9 % Sodium Chloride 1,000 ML IVC SCH (23:07)
[2017-04-25] MEDS: MethylPREDNISolone 40 MG/ML VIAL IVP SCH (23:07)
[2017-04-26] MEDS: Ipratropium/Albuterol Neb 3 ML IH SCH ×7 (00:14→23:00)
[2017-04-26] MEDS: Piperacillin/Tazobactam 3.375 GM/200 ML BAG IVPB SCH ×4 (00:17→23:27)
[2017-04-26 05:16] LABS: Basophils % 0.1 %; Hematocrit 33.7 % (35.3-44.9); Hemoglobin 10.7 g/dL (11.5-15.4); Immature Granulocytes % 1.4 % (0-4); Lymphocytes # 0.5 K/mcL (0.6-4.6); Lymphocytes % 6.7 %; Mean Corpuscular HGB Conc 31.8 g/dL (31.6-35.5); Mean Corpuscular Hemoglobin 29.2 pg (28.0-33.3); Mean Corpuscular Volume 91.8 fL (83.0-100.0); Mean Platelet Volume 9.4 fL (9.4-12.4); Monocytes # 0.1 K/mcL (0.0-1.3); Monocytes % 1.8 %; Neutrophils # 6.8 K/mcL (1.6-8.9); Platelet Count 316 K/mcL (140-400); Red Blood Count 3.67 M/mcL (3.82-4.97); Red Cell Distribution Width 13.3 % (11.5-14.5)
[2017-04-26 05:20] LABS: INR 1.1; Prothrombin Time 12.4 Seconds (9.4-12.1)
[2017-04-26 05:27] LABS: Activated Partial Thrombo Time 60.4 Seconds (26.0-36.0); BUN/Creatinine Ratio 25 (6-26); Blood Urea Nitrogen 14 mg/dL (8-23); Calcium 8.6 mg/dL (8.6-10.3); Carbon Dioxide 34 mEq/L (23-29); Chloride 95 mEq/L (98-107); Chol/HDL Ratio 3.1 (0-4.9); Cholesterol 107 mg/dL (< 200); Glucose 167 mg/dL (70-105); HDL Cholesterol 35 mg/dL (40-59); LDL Cholesterol,Calculated 57 mg/dL (0-99); Osmolality,Calculated 280 (280-300); Potassium 3.6 mEq/L (3.5-5.1); Sodium 133 mEq/L (136-145); Triglycerides 75 mg/dL (< 150); eGFR For African Americans > 60 (> 60); eGFR For Non-African Americans > 60 (> 60)
[2017-04-26] MEDS ORDERED: Regadenoson 0.4 MG/5 ML SYRINGE IVP ONE (06:13)
--- NOTE | 2017-04-26 08:42 | Internal Med Progress Note ---
<Shantanu Alegre - Last Filed: 04/26/17 14:30> Date of Encounter: 04/26/17 Time of Encounter: 08:42 - Assessment and plan (1) Acute respiratory failure with hypoxia Current Visit: Yes Status: Acute Assessment and plan: Most likely multifactoral PNA + exacerbatino of COPD. currently stable. BNP, and trop elevated most likley due to demand ischemia from respiratory. unlikely PE, negative chest CTA. - deescalate zosyn - continue levaquin day 1 - continue respiratory support - can advance diet, with cards clearance - patient refuses stress at this time, due to low likelyhood symptoms are Cardiac related, as discussed with cardiology if patient needs stress test, will wait until she is more stable and in agreement. (2) Ankle fracture, right Current Visit: Yes Status: Acute Assessment and plan: scheduled outpatient procedure was cancelled due to hypoxia. Will have to reschedule outpatient. Qualifiers: Encounter type: initial encounter Fracture type: closed Qualified Code(s) : S82.891A - Other fracture of right lower leg, initial encounter for closed fracture (3) Anxiety Current Visit: Yes Status: Chronic Assessment and plan: currently controlled. continue home meds. (4) CAD (coronary artery disease) Current Visit: Yes Status: Chronic Assessment and plan: stress test was cancelled after patient became hypoxic during test. Qualifiers: Coronary Disease-Associated Artery/Lesion type: [place] artery [place] vs. transplanted heart: [place] heart Associated angina: without angina Qualified Code(s): I25.10 - Atherosclerotic heart disease of [place] coronary artery without angina pectoris (5) DVT prophylaxis Current Visit: Yes Status: Acute Assessment and plan: lovenox (6) Elevated troponin Current Visit: Yes Status: Acute Assessment and plan: most likely due to demand ischemia (7) GERD (gastroesophageal reflux disease) Current Visit: Yes Status: Chronic Assessment and plan: currently stable. Qualifiers: Esophagitis presence: without esophagitis Qualified Code(s): K21.9 - Gastro -esophageal reflux disease without esophagitis (8) HTN (hypertension) Current Visit: Yes Status: Chronic Assessment and plan: currently stable. Qualifiers: Hypertension type: essential hypertension Qualified Code(s): I10 - Essential (primary) hypertension (9) SANJUANA (obstructive sleep apnea) Current Visit: Yes Status: Chronic Assessment and plan: Bipap at night (10) Pneumonia Current Visit: Yes Status: Acute Assessment and plan: patient's PNA most likely community acquired. Patient developed symptoms 1 day prior to scheduled surgery. will continue respiratory support and abx support with levaquin Qualifiers: Pneumonia type: due to unspecified organism Laterality: unspecified laterality Lung location: unspecified part of lung Qualified Code(s): J18.9 - Pneumonia, unspecified organism (11) Sepsis Current Visit: Yes Status: Acute Assessment and plan: on admission: tachycardia, WBC 61064, tachypnea, bilateral pneumonia, Send blood and sputum cultures, lactate is WNL. currently non-septic and stable. - continue to monitor vitals Qualifiers: Sepsis type: sepsis due to unspecified organism Qualified Code(s): A41.9 - Sepsis, unspecified organism (12) Obesity (BMI 30.0-34.9) Current Visit: Yes Status: Acute Assessment and plan: to be managed outpatient - Subjective Interval history: Mr cook is 66 yo F with PMH advanced emphysema and COPD, with previous intubation, 2L O2 at home, CAD, hypertension, coronary artery disease presented to [place] after being found hypoxic prior to a routine outpatient ortho surgery. The day prior to surgery, she had SOB, and had to up her home O2 to 3L. Today the patient reports no SOB on O2. She was supported with Bipap last night. Today she failed a stress test due to hypoxia. She has no new complaints , and no events overnight. She denies CP, diaphoresis, n/t in extremities, n/v. - Constitutional Vitals: Temp Pulse Resp BP Pulse Ox 98.2 F 96 20 139/85 97 04/25/17 20:55 04/26/17 04:51 04/26/17 04:51 04/26/17 04:51 04/26/17 04:51 General appearance: Present: mild distress, A&O X 3, pleasant, obese - Respiratory Respiratory exam: Present: prolonged expiratory phase, wheezes. Absent: accessory muscle use, rales, rhonchi - Cardiovascular Cardiovascular exam: Present: RRR, +S1, +S2. Absent: diastolic murmur, gallop, rubs, systolic murmur - Extremities Exam Extremities exam: Present: warm, radial pulses palpable and symmetrical. Absent : calf tenderness, cyanotic, pedal edema - Psychiatric Psychiatric exam: Present: normal affect, normal mood Internal Medicine: Result - Labs CBC & Chem 7: 04/26/17 04:53 04/26/17 04:53 Labs: Short CBC 04/25/17 04/26/17 Range/Units 22:02 04:53 WBC 10.1 7.6 (4.3-11.1) K/mcL Hgb 11.6 10.7 L (11.5-15.4) g/dL Hct 35.9 33.7 L (35.3-44.9) % Plt Count 344 316 (140-400) K/mcL Neutrophils # 6.8 (1.6-8.9) K/mcL BMP 04/26/17 04:53 Sodium 133 L Potassium 3.6 Chloride 95 L Carbon Dioxide 34 H BUN 14 Creatinine 0.56 L Glucose 167 H Calcium 8.6 Cardiac Enzymes 04/25/17 04/25/17 Range/Units 14:44 19:27 Troponin I < 0.03 < 0.03 (< 0.04) ng/mL - ABG Interpretation ABG results: PT/INR, D-dimer PT 12.4 Seconds (9.4-12.1) H 04/26/17 04:53 Consult Discharge Plan - Plan Referrals: Dion Whitman MD [Primary Care Provider] - <Filemon Lazo - Last Filed: 04/26/17 18:58> Date of Encounter: 04/26/17 - Assessment and plan (1) Acute and chronic respiratory failure Current Visit: Yes Status: Acute Qualifiers: Respiratory failure complication: hypoxia Qualified Code(s): J96.21 - Acute and chronic respiratory failure with hypoxia (2) Pneumonia Current Visit: Yes Status: Acute Qualifiers: Pneumonia type: due to unspecified organism Laterality: bilateral Lung location: unspecified part of lung Qualified Code(s): J18.9 - Pneumonia, unspecified organism (3) Sepsis Current Visit: Yes Status: Resolved Qualifiers: Sepsis type: sepsis due to unspecified organism Qualified Code(s): A41.9 - Sepsis, unspecified organism (4) CAD (coronary artery disease) Current Visit: Yes Status: Chronic Qualifiers: Coronary Disease-Associated Artery/Lesion type: [place] artery [place] vs. transplanted heart: [place] heart Associated angina: without angina Qualified Code(s): I25.10 - Atherosclerotic heart disease of [place] coronary artery without angina pectoris (5) HTN (hypertension) Current Visit: Yes Status: Chronic Qualifiers: Hypertension type: essential hypertension Qualified Code(s): I10 - Essential (primary) hypertension (6) SANJUANA (obstructive sleep apnea) Current Visit: Yes Status: Chronic (7) Ankle fracture, right Current Visit: Yes Status: Acute Qualifiers: Encounter type: initial encounter Fracture type: closed Qualified Code(s) : S82.891A - Other fracture of right lower leg, initial encounter for closed fracture (8) Obesity (BMI 30.0-34.9) Current Visit: Yes Status: Acute - Constitutional Vitals: Temp Pulse Resp BP Pulse Ox 98.3 F 110 18 141/77 91 04/26/17 16:00 04/26/17 16:00 04/26/17 16:00 04/26/17 16:00 04/26/17 16:00 Internal Medicine: Result - Labs CBC & Chem 7: 04/26/17 04:53 04/26/17 04:53 Labs: Short CBC 04/25/17 04/26/17 Range/Units 22:02 04:53 WBC 10.1 7.6 (4.3-11.1) K/mcL Hgb 11.6 10.7 L (11.5-15.4) g/dL Hct 35.9 33.7 L (35.3-44.9) % Plt Count 344 316 (140-400) K/mcL Neutrophils # 6.8 (1.6-8.9) K/mcL BMP 04/26/17 04:53 Sodium 133 L Potassium 3.6 Chloride 95 L Carbon Dioxide 34 H BUN 14 Creatinine 0.56 L Glucose 167 H Calcium 8.6 Cardiac Enzymes 04/25/17 Range/Units 19:27 Troponin I < 0.03 (< 0.04) ng/mL - ABG Interpretation ABG results: PT/INR, D-dimer PT 12.4 Seconds (9.4-12.1) H 04/26/17 04:53 - Impressions Impressions Echocardiogram 04/26/17 14:19 Impressions: LVEF 60-65%. Mild left ventricular diastolic dysfunction. RV size is not well visualized. Function appears normal. No significant valvular dysfunction. No pulmonary hypertension. Left Ventricular Wall Motion: Rest Echo Findings All wall segments showed normal motion. Findings: Study Quality * Technically adequate exam. ECG Findings * Normal sinus rhythm. Left Ventricle * LVEF 60-65%. * Mild left ventricular diastolic dysfunction. * Normal LV chamber size, wall thickness and function. Right Ventricle * RV size is not well visualized. Function appears normal. Left Atrium * Normal left atrial size. Right Atrium * Normal right atrial size. Aortic Valve * No aortic regurgitation. * Aortic valve not well visualized. * No aortic stenosis. Mitral Valve * No mitral regurgitation. * Normal mitral valve structure. * No mitral stenosis. Tricuspid Valve * No tricuspid regurgitation. * Normal tricuspid valve structure. * Estimated RA pressure is 3 mmHg. * Estimated RVSP is 11 mmHg. * No pulmonary hypertension. Pulmonic Valve * Pulmonic valve is not well visualized. * No pulmonic stenosis. * No pulmonic regurgitation. Pulmonary Artery * Pulmonary artery not well visualized. Aorta * Normally sized aortic root. Pericardium * There is no pericardial effusion present. Interatrial Septum * No evidence of PFO by color Doppler. IVC * Normal IVC dimensions and inspiratory collapse. - Attending Attestation I examined this patient and my medical decision-making was reviewed with the Resident Physician on 04/26/17. I agree with the documented findings, disposition and treatment plan as described except to the extent set forth below. Ms Cook has been admitted for multifocal pneumonia and acute on chronic resp failure. She remains moderate to high risk due to potential for worsening clinical status. Ms Cook is feeling a little better. She is still coughing and quite dyspneic. No fever. No chest pain. Exam Alert. Comfortable Heart reg Wheeze noted Abd soft i/P 1. Pneumonia 2. Resp failure Further diagnoses and plan as above.
--- NOTE | 2017-04-26 09:02 | Electrocardiograph Report ---
[facility] [employer] Test Date: 2017-04-25 Pat Name: Debbie Cook Department: 104 Room: 2NE22 Gender: F Program Medical Director: : 1950 Requested By: Jose Antonio Grewal Order Number: [id number] Reading MD: Shahid James MD Measurements Intervals [place] Rate: 118 P: 74 AL: 139 QRS: 47 QRSD: 86 T: 65 QT: 306 QTc: 376 Interpretive Statements SINUS TACHYCARDIA ABNORMAL RHYTHM ECG INTERPRETATION BASED ON A DEFAULT AGE OF 40 YEARS Electronically Signed On 04-26-2017 9:00:38 EST by Shahid James MD
[2017-04-26] MEDS: Aspirin 81 MG TAB.CHEW PO SCH (09:56)
[2017-04-26] MEDS: MethylPREDNISolone 40 MG/ML VIAL IVP SCH ×3 (09:56→23:28)
[2017-04-26] MEDS: Levofloxacin 750 MG/150 ML 750 MG/150 ML BAG IVPB SCH (09:56)
[2017-04-26] MEDS: ALPRAZolam 0.25 MG TABLET PO PRN ×2 (09:56→23:28)
[2017-04-26] MEDS: 0.9 % Sodium Chloride 1,000 ML IVC SCH (10:31)
--- NOTE | 2017-04-26 10:59 | Cardiology Progress Note ---
Addendum entered and electronically signed by Jayla Lee MD 04/26/17 14 :35: Patient now requesting that she NOT undergo stress testing. Hypoxia all likely secondary to pulmonary process. Cardiology will sign off. Patient to follow up with PCP in 2-4 weeks for stress testing. Please feel free to consult us with any further questions or concerns. Original Note: <Jayla Lee - Last Filed: 04/26/17 11:06> Date of Encounter: 04/26/17 Time of Encounter: 10:56 Assessment and Plan (1) Elevated troponin Current Visit: Yes Status: Acute Initial troponin 0.06 (first report was 8, however, lab re-ran test, and it was a faulty measurement), second set 0.03. This is likely demand ischemia secondary to sepsis and hypoxia. -Patient with history of demand ischemia in 03/2016 during inpatient hospitalization, History of CAD. -Patient unable to undergo stress testing this morning as she became hypoxic. We will resume a diet for today. Will do a non-exercise stress test when she improves clinically. -Will make NPO after midnight, if patient has improved clinically tomorrow morning, we will proceed with nuclear imaging/stress test. -D/C heparin, start DVT prophylaxis. - continue aspirin, lipitor Discussion w patient/family: The assessment and plan as outlined above was discussed with the patient and/or family members who expressed understanding and agreement. All questions were answered. Thank you for involving us in the care of your patient. Please call with any questions. Subjective Principal diagnosis: Acute respiratory failure with hypoxia/PNA Interval history: Ms. Cook is a66 yo female with past medical history of advanced emphysema and COPD, hypertension, and coronary artery disease. This morning when patient was taken down for stress testing, she was found to be hypoxic with oxygen saturation in the upper 60s to low 70s. She states she felt mild shortness of breath prior to transfer. This morning, patient is resting comfortably. She denies any chest pain, chest pressure, nausea, or diaphoresis. She denies any fevers or chills. She does report shortness of breath. She denies orthopnea. Objective Vital Signs, Last 4 Hours Temp Pulse Resp BP Pulse Ox 04/26/17 10:52 17 95 04/26/17 10:18 92 04/26/17 09:35 98.0 F 101 18 145/90 92 General: Conversant, No Apparent Distress HEENT: Atraumatic, Normocephaly, Mucus Membranes Moist Cardiac: Reg Rate and Rhythm, Normal S1 and S2 Lungs: Other (Marked wheezes bilaterally) Neuro: Alert and responsive, No focal deficits noted Abdomen: Soft, Non-Tender Skin: Other (Patient with bruising over bilateral lower extremity c/w previous trauma) Extremities: No Clubbing, No Cyanosis, No Edema Results 04/26/17 04:53 04/26/17 04:53 Lab Results 04/25/17 04/25/17 04/25/17 14:44 19:27 19:27 WBC Hgb Hct Plt Count INR APTT 43.3 H Sodium Potassium Chloride Carbon Dioxide BUN Creatinine Glucose Calcium Troponin I < 0.03 < 0.03 04/25/17 04/25/17 04/26/17 22:02 22:02 04:53 WBC 10.1 7.6 Hgb 11.6 10.7 L Hct 35.9 33.7 L Plt Count 344 316 INR 1.2 APTT 36.2 H Sodium Potassium Chloride Carbon Dioxide BUN Creatinine Glucose Calcium Troponin I 04/26/17 04/26/17 04:53 04:53 WBC Hgb Hct Plt Count INR 1.1 APTT 60.4 H D Sodium 133 L Potassium 3.6 Chloride 95 L Carbon Dioxide 34 H BUN 14 Creatinine 0.56 L Glucose 167 H Calcium 8.6 Troponin I Consult Discharge Plan - Plan Referrals: Dion Whitman MD [Primary Care Provider] - <Zacarias Curtis - Last Filed: 04/27/17 17:38> Date of Encounter: 04/26/17 Assessment and Plan Discussion w patient/family: The assessment and plan as outlined above was discussed with the patient and/or family members who expressed understanding and agreement. All questions were answered. Thank you for involving us in the care of your patient. Please call with any questions. Objective Vital Signs, Last 4 Hours Temp Pulse Resp BP Pulse Ox 04/27/17 16:01 18 93 04/27/17 15:42 96.8 F L 86 16 159/90 93 Results 04/26/17 04:53 04/26/17 04:53 - Attending Attestation I examined this patient and my medical decision-making was reviewed with the Resident Physician. I agree with the documented findings, disposition and treatment plan as described except to the extent set forth below. CC: shortness of breath PT reports is breathing easier, responding to respiratory tx. Pt does not want to proceed with cardiac testing at this time, is asymptomatic. Will sign off, please contact if can help.
[2017-04-26] MEDS: Metoprolol XL (24 HR) Succ 50 MG TAB.ER.24H PO SCH (17:12)
[2017-04-26] MEDS: *HR* HYDROcodone/Acet 5/325 mg TABLET PO PRN (17:21)
[2017-04-26 20:09] LABS: Adenovirus Not Detected (Not Detect); Bordetella Pertussis Not Detected (Not Detect); Chlamydophila pneumoniae Not Detected (Not Detect); Coronavirus 229E Not Detected (Not Detect); Coronavirus HKU1 Not Detected (Not Detect); Coronavirus NL63 Not Detected (Not Detect); Coronavirus OC43 Not Detected (Not Detect); Human Metapneumovirus Not Detected (Not Detect); Human Rhinovirus/Enterovirus Not Detected (Not Detect); Influenza A Subtype 2009 H1 Not Detected (Not Detect); Influenza A Untypeable Not Detected (Not Detect); Influenza B Not Detected (Not Detect); Mycoplasma pneumoniae Not Detected (Not Detect); Parainfluenza Virus 1 Not Detected (Not Detect); Parainfluenza Virus 2 Not Detected (Not Detect); Parainfluenza Virus 3 Not Detected (Not Detect); Parainfluenza Virus 4 Not Detected (Not Detect); Respiratory Syncytial Virus Not Detected (Not Detect)
[2017-04-27] MEDS: Ipratropium/Albuterol Neb 3 ML IH SCH ×6 (03:53→23:24)
[2017-04-27] MEDS: *HR* Enoxaparin 40 MG/0.4 ML SYRINGE SQ SCH (05:43)
[2017-04-27] MEDS: Metoprolol XL (24 HR) Succ 50 MG TAB.ER.24H PO SCH (09:08)
[2017-04-27] MEDS: MethylPREDNISolone 40 MG/ML VIAL IVP SCH (09:08)
[2017-04-27] MEDS: Aspirin 81 MG TAB.CHEW PO SCH (09:10)
[2017-04-27] MEDS: Piperacillin/Tazobactam 3.375 GM/200 ML BAG IVPB SCH ×3 (09:12→23:33)
[2017-04-27] MEDS: Acetaminophen 325 MG TABLET PO PRN (09:20)
[2017-04-27] MEDS: *HR* HYDROcodone/Acet 5/325 mg TABLET PO PRN ×2 (11:35→20:48)
[2017-04-27] MEDS: Levofloxacin 750 MG/150 ML 750 MG/150 ML BAG IVPB SCH (13:33)
[2017-04-27] MEDS ORDERED: *HR* OxyCODONE Immed Rel 5 MG TABLET PO PRN (14:23)
[2017-04-27] MEDS ORDERED: Furosemide 20 MG TABLET PO PRN (14:55)
--- NOTE | 2017-04-27 14:57 | Internal Med Progress Note ---
<Shantanu Alegre - Last Filed: 04/27/17 14:58> Date of Encounter: 04/27/17 Time of Encounter: 10:00 - Assessment and plan (1) Acute respiratory failure with hypoxia Current Visit: Yes Status: Acute Assessment and plan: Most likely multifactoral PNA + exacerbatino of COPD. currently stable. BNP, and trop elevated most likley due to demand ischemia from respiratory. unlikely PE, negative chest CTA. when patient was seen today, patient was tachycardic and hypertensive - tapering steroids from IV to PO - started lasix - restarted home BP rx - restarted home oxycodone - continue levaquin + zosyn day 2 - continue respiratory support - tylenol PRN for headache - will need to setup stress test for outpatient on D/C (2) Ankle fracture, right Current Visit: Yes Status: Acute Assessment and plan: scheduled outpatient procedure was cancelled due to hypoxia. Will have to reschedule outpatient. Qualifiers: Encounter type: initial encounter Fracture type: closed Qualified Code(s) : S82.891A - Other fracture of right lower leg, initial encounter for closed fracture (3) Anxiety Current Visit: Yes Status: Chronic Assessment and plan: currently controlled. continue home meds. (4) CAD (coronary artery disease) Current Visit: Yes Status: Chronic Assessment and plan: previous CAD Qualifiers: Coronary Disease-Associated Artery/Lesion type: [place] artery [place] vs. transplanted heart: [place] heart Associated angina: without angina Qualified Code(s): I25.10 - Atherosclerotic heart disease of [place] coronary artery without angina pectoris (5) DVT prophylaxis Current Visit: Yes Status: Acute Assessment and plan: lovenox (6) Elevated troponin Current Visit: Yes Status: Acute Assessment and plan: most likely due to demand ischemia (7) GERD (gastroesophageal reflux disease) Current Visit: Yes Status: Chronic Assessment and plan: currently stable. Qualifiers: Esophagitis presence: without esophagitis Qualified Code(s): K21.9 - Gastro -esophageal reflux disease without esophagitis (8) HTN (hypertension) Current Visit: Yes Status: Chronic Assessment and plan: currently stable. Qualifiers: Hypertension type: essential hypertension Qualified Code(s): I10 - Essential (primary) hypertension (9) SANJUANA (obstructive sleep apnea) Current Visit: Yes Status: Chronic Assessment and plan: Bipap at night (10) Pneumonia Current Visit: Yes Status: Acute Assessment and plan: patient's PNA most likely community acquired. Patient developed symptoms 1 day prior to scheduled surgery. will continue respiratory support and abx support with levaquin + zosyn Qualifiers: Pneumonia type: due to unspecified organism Laterality: unspecified laterality Lung location: unspecified part of lung Qualified Code(s): J18.9 - Pneumonia, unspecified organism (11) Sepsis Current Visit: Yes Status: Resolved Assessment and plan: on admission: tachycardia, WBC 70229, tachypnea, bilateral pneumonia, Send blood and sputum cultures, lactate is WNL. currently non-septic and stable. - continue to monitor vitals Qualifiers: Sepsis type: sepsis due to unspecified organism Qualified Code(s): A41.9 - Sepsis, unspecified organism (12) Obesity (BMI 30.0-34.9) Current Visit: Yes Status: Acute Assessment and plan: to be managed outpatient - Subjective Interval history: Mr cook is 66 yo F with PMH advanced emphysema and COPD, with previous intubation, 2L O2 at home, CAD, hypertension, coronary artery disease presented to [place] after being found hypoxic prior to a routine outpatient ortho surgery. The day prior to surgery, she had SOB, and had to up her home O2 to 3L. Today patient continues to report no SOB but does states that she's extremely tired and has a headache. Her headache she states is not out of the normal and usually resolves with tylenol. She denies CP, diaphoresis, n/t in extremities, n/v. - Constitutional Vitals: Temp Pulse Resp BP Pulse Ox 98 F 95 16 157/94 94 04/27/17 11:54 04/27/17 11:54 04/27/17 11:54 04/27/17 11:54 04/27/17 11:54 General appearance: Present: mild distress, A&O X 3, pleasant, obese - Respiratory Respiratory exam: Present: prolonged expiratory phase, wheezes. Absent: accessory muscle use, rales, respiratory distress, rhonchi, stridor, tachypnea - Cardiovascular Cardiovascular exam: Present: RRR, +S1, +S2. Absent: diastolic murmur, gallop, rubs, systolic murmur - GI/Abdominal GI/Abdominal exam: Present: normal bowel sounds, soft, no peritoneal signs. Absent: distended, tenderness - Extremities Exam Extremities exam: Present: warm, radial pulses palpable and symmetrical. Absent : calf tenderness, cyanotic, pedal edema - Psychiatric Additional comments: feels more down today but not depressed. Internal Medicine: Result - Labs CBC & Chem 7: 04/26/17 04:53 04/26/17 04:53 - ABG Interpretation ABG results: PT/INR, D-dimer PT 12.4 Seconds (9.4-12.1) H 04/26/17 04:53 Consult Discharge Plan - Plan Referrals: Dion Whitman MD [Primary Care Provider] - <Filemon Lazo - Last Filed: 04/27/17 18:15> Date of Encounter: 04/27/17 - Assessment and plan (1) Acute and chronic respiratory failure Current Visit: Yes Status: Acute Qualifiers: Respiratory failure complication: hypoxia Qualified Code(s): J96.21 - Acute and chronic respiratory failure with hypoxia (2) Pneumonia Current Visit: Yes Status: Acute Qualifiers: Pneumonia type: due to unspecified organism Laterality: bilateral Lung location: unspecified part of lung Qualified Code(s): J18.9 - Pneumonia, unspecified organism (3) Sepsis Current Visit: Yes Status: Resolved Qualifiers: Sepsis type: sepsis due to unspecified organism Qualified Code(s): A41.9 - Sepsis, unspecified organism (4) CAD (coronary artery disease) Current Visit: Yes Status: Chronic Qualifiers: Coronary Disease-Associated Artery/Lesion type: [place] artery [place] vs. transplanted heart: [place] heart Associated angina: without angina Qualified Code(s): I25.10 - Atherosclerotic heart disease of [place] coronary artery without angina pectoris (5) HTN (hypertension) Current Visit: Yes Status: Chronic Qualifiers: Hypertension type: essential hypertension Qualified Code(s): I10 - Essential (primary) hypertension (6) SANJUANA (obstructive sleep apnea) Current Visit: Yes Status: Chronic (7) Ankle fracture, right Current Visit: Yes Status: Acute Qualifiers: Encounter type: subsequent encounter Fracture type: closed Fracture healing: with routine healing Qualified Code(s): S82.891D - Other fracture of right lower leg, subsequent encounter for closed fracture with routine healing (8) Obesity (BMI 30.0-34.9) Current Visit: Yes Status: Acute - Constitutional Vitals: Temp Pulse Resp BP Pulse Ox 96.8 F L 86 18 159/90 93 04/27/17 15:42 04/27/17 15:42 04/27/17 16:01 04/27/17 15:42 04/27/17 16:01 Internal Medicine: Result - Labs CBC & Chem 7: 04/26/17 04:53 04/26/17 04:53 - ABG Interpretation ABG results: PT/INR, D-dimer PT 12.4 Seconds (9.4-12.1) H 04/26/17 04:53 - Attending Attestation I examined this patient and my medical decision-making was reviewed with the Resident Physician on 04/27/17. I agree with the documented findings, disposition and treatment plan as described except to the extent set forth below. Ms Cook has been admitted for hypoxia and multifocal pneumonia. She remains moderate to high risk due to potential for worsening clinical status. Ms Cook is resting comfortably at this time. No fever or chills. Still coughing. Oxygen drops at times, especially with sleeping. Exam Alert. Comfortable Mucus membranes dry Heart reg Lungs with wheeze and crackles I/P 1. hypoxia 2. pneumonia Further diagnoses and plan as above.
[2017-04-27] MEDS: ALPRAZolam 0.25 MG TABLET PO PRN (23:33)
[2017-04-28] MEDS: Ipratropium/Albuterol Neb 3 ML IH SCH ×6 (03:26→23:05)
[2017-04-28] MEDS: *HR* HYDROcodone/Acet 5/325 mg TABLET PO PRN ×3 (05:14→15:54)
[2017-04-28] MEDS: *HR* Enoxaparin 40 MG/0.4 ML SYRINGE SQ SCH (05:15)
[2017-04-28 06:40] LABS: Hematocrit 37.4 % (35.3-44.9); Hemoglobin 11.2 g/dL (11.5-15.4); Mean Corpuscular HGB Conc 29.9 g/dL (31.6-35.5); Mean Corpuscular Hemoglobin 28.6 pg (28.0-33.3); Mean Corpuscular Volume 95.7 fL (83.0-100.0); Platelet Count 450 K/mcL (140-400); Red Blood Count 3.91 M/mcL (3.82-4.97); Red Cell Distribution Width 13.2 % (11.5-14.5)
[2017-04-28 07:06] LABS: Alanine Aminotransferase 10 Units/L (7-52); Albumin 3.2 g/dL (3.5-5.7); Albumin/Globulin Ratio 1.1 (1.1-2.2); Alkaline Phosphatase 112 Units/L (34-104); Aspartate Amino Transferase 10 Units/L (13-39); BUN/Creatinine Ratio 22 (6-26); Bilirubin,Total 0.3 mg/dL (0.3-1.0); Blood Urea Nitrogen 17 mg/dL (8-23); Carbon Dioxide 38 mEq/L (23-29); Chloride 95 mEq/L (98-107); Globulin 2.9 g/dL (2.4-3.5); Glucose 102 mg/dL (70-105); Osmolality,Calculated 280 (280-300); Sodium 134 mEq/L (136-145); Total Protein 6.1 g/dL (6.4-8.9); eGFR For African Americans > 60 (> 60); eGFR For Non-African Americans > 60 (> 60)
[2017-04-28 07:42] LABS: Lymphocytes # 2.1 K/mcL (0.6-4.6); Monocytes # 1.1 K/mcL (0.0-1.3); Toxic Granulation Present (Not Present)
[2017-04-28] MEDS ORDERED: predniSONE 20 MG TABLET PO SCH (09:00)
[2017-04-28] MEDS: Levofloxacin 750 MG/150 ML 750 MG/150 ML BAG IVPB SCH (09:32)
[2017-04-28] MEDS: Metoprolol XL (24 HR) Succ 50 MG TAB.ER.24H PO SCH (09:35)
[2017-04-28] MEDS: Aspirin 81 MG TAB.CHEW PO SCH (09:36)
--- NOTE | 2017-04-28 11:19 | Internal Med Progress Note ---
<Shantanu Alegre - Last Filed: 04/28/17 14:31> Date of Encounter: 04/28/17 Time of Encounter: 11:17 - Assessment and plan (1) Acute respiratory failure with hypoxia Current Visit: Yes Status: Acute Assessment and plan: Most likely multifactoral PNA + exacerbatino of COPD. currently stable. BNP, and trop elevated most likley due to demand ischemia from respiratory. unlikely PE, negative chest CTA. when patient was seen today, patient was tachycardic and hypertensive. now has leukocytosis WBC 17.6. - went back to IV Solumderol - started lasix; strict I/O - restarted home BP rx - restarted home oxycodone - continue levaquin + zosyn day 3 - continue respiratory support; now on bipap - tylenol PRN for headache - will need to setup stress test for outpatient on D/C - F/U CXR ordered (2) Ankle fracture, right Current Visit: Yes Status: Acute Assessment and plan: scheduled outpatient procedure was cancelled due to hypoxia. Will have to reschedule outpatient. Qualifiers: Encounter type: subsequent encounter Fracture type: closed Fracture healing: with routine healing Qualified Code(s): S82.891D - Other fracture of right lower leg, subsequent encounter for closed fracture with routine healing (3) Anxiety Current Visit: Yes Status: Chronic Assessment and plan: currently controlled. continue home meds. (4) CAD (coronary artery disease) Current Visit: Yes Status: Chronic Assessment and plan: previous CAD Qualifiers: Coronary Disease-Associated Artery/Lesion type: [place] artery [place] vs. transplanted heart: [place] heart Associated angina: without angina Qualified Code(s): I25.10 - Atherosclerotic heart disease of [place] coronary artery without angina pectoris (5) DVT prophylaxis Current Visit: Yes Status: Acute Assessment and plan: lovenox (6) Elevated troponin Current Visit: Yes Status: Acute Assessment and plan: most likely due to demand ischemia (7) GERD (gastroesophageal reflux disease) Current Visit: Yes Status: Chronic Assessment and plan: currently stable. Qualifiers: Esophagitis presence: without esophagitis Qualified Code(s): K21.9 - Gastro -esophageal reflux disease without esophagitis (8) HTN (hypertension) Current Visit: Yes Status: Chronic Assessment and plan: currently stable. Qualifiers: Hypertension type: essential hypertension Qualified Code(s): I10 - Essential (primary) hypertension (9) SANJUANA (obstructive sleep apnea) Current Visit: Yes Status: Chronic Assessment and plan: Bipap at night (10) Pneumonia Current Visit: Yes Status: Acute Assessment and plan: patient's PNA most likely community acquired. Patient developed symptoms 1 day prior to scheduled surgery. will continue respiratory support and abx support with levaquin + zosyn Qualifiers: Pneumonia type: due to unspecified organism Laterality: unspecified laterality Lung location: unspecified part of lung Qualified Code(s): J18.9 - Pneumonia, unspecified organism (11) Sepsis Current Visit: Yes Status: Resolved Assessment and plan: on admission: tachycardia, WBC 55264, tachypnea, bilateral pneumonia, Send blood and sputum cultures, lactate is WNL. currently non-septic and stable. - continue to monitor vitals Qualifiers: Sepsis type: sepsis due to unspecified organism Qualified Code(s): A41.9 - Sepsis, unspecified organism (12) Obesity (BMI 30.0-34.9) Current Visit: Yes Status: Acute Assessment and plan: to be managed outpatient - Subjective Interval history: Mr cook is 66 yo F with PMH advanced emphysema and COPD, with previous intubation, 2L O2 at home, CAD, hypertension, coronary artery disease presented to [place] after being found hypoxic prior to a routine outpatient ortho surgery. The day prior to surgery, she had SOB, and had to up her home O2 to 3L. Today patient reports a worsening of her condition. She feels even more tired and SOB. She was placed on Bipap. - Constitutional Vitals: Temp Pulse Resp BP Pulse Ox 98 F 112 20 166/93 98 04/28/17 07:15 04/28/17 10:54 04/28/17 11:07 04/28/17 10:54 04/28/17 11:07 General appearance: Present: mild distress, A&O X 3, pleasant, obese - Respiratory Respiratory exam: Present: prolonged expiratory phase, wheezes - Cardiovascular Cardiovascular exam: Present: tachycardia - Extremities Exam Extremities exam: Present: pedal edema (bilateral pedal edema +1) Internal Medicine: Result - Labs CBC & Chem 7: 04/28/17 06:02 04/28/17 06:02 Labs: Short CBC 04/28/17 Range/Units 06:02 WBC 17.6 H D (4.3-11.1) K/mcL Hgb 11.2 L (11.5-15.4) g/dL Hct 37.4 (35.3-44.9) % Plt Count 450 H (140-400) K/mcL Neutrophils # 13.0 H (1.6-8.9) K/mcL BMP 04/28/17 06:02 Sodium 134 L Potassium 4.0 Chloride 95 L Carbon Dioxide 38 H BUN 17 Creatinine 0.77 Glucose 102 Calcium 9.0 Liver Function 04/28/17 Range/Units 06:02 Total Bilirubin 0.3 (0.3-1.0) mg/dL AST 10 L (13-39) Units/L ALT 10 (7-52) Units/L Alkaline Phosphatase 112 H (34-104) Units/L Albumin 3.2 L (3.5-5.7) g/dL - ABG Interpretation ABG results: PT/INR, D-dimer PT 12.4 Seconds (9.4-12.1) H 04/26/17 04:53 Consult Discharge Plan - Plan Referrals: Dion Whitman MD [Primary Care Provider] - <Filemon Lazo - Last Filed: 04/28/17 17:40> Date of Encounter: 04/28/17 - Assessment and plan (1) Acute and chronic respiratory failure Current Visit: Yes Status: Acute Qualifiers: Respiratory failure complication: hypoxia Qualified Code(s): J96.21 - Acute and chronic respiratory failure with hypoxia (2) Pneumonia Current Visit: Yes Status: Acute Qualifiers: Pneumonia type: due to unspecified organism Laterality: bilateral Lung location: unspecified part of lung Qualified Code(s): J18.9 - Pneumonia, unspecified organism (3) Sepsis Current Visit: Yes Status: Resolved Qualifiers: Sepsis type: sepsis due to unspecified organism Qualified Code(s): A41.9 - Sepsis, unspecified organism (4) CAD (coronary artery disease) Current Visit: Yes Status: Chronic Qualifiers: Coronary Disease-Associated Artery/Lesion type: [place] artery [place] vs. transplanted heart: [place] heart Associated angina: without angina Qualified Code(s): I25.10 - Atherosclerotic heart disease of [place] coronary artery without angina pectoris (5) HTN (hypertension) Current Visit: Yes Status: Chronic Qualifiers: Hypertension type: essential hypertension Qualified Code(s): I10 - Essential (primary) hypertension (6) SANJUANA (obstructive sleep apnea) Current Visit: Yes Status: Chronic (7) Ankle fracture, right Current Visit: Yes Status: Acute Qualifiers: Encounter type: subsequent encounter Fracture type: closed Fracture healing: with routine healing Qualified Code(s): S82.891D - Other fracture of right lower leg, subsequent encounter for closed fracture with routine healing (8) Obesity (BMI 30.0-34.9) Current Visit: Yes Status: Acute - Constitutional Vitals: Temp Pulse Resp BP Pulse Ox 98 F 102 16 171/96 97 04/28/17 15:16 04/28/17 15:16 04/28/17 15:39 04/28/17 15:16 04/28/17 15:39 Internal Medicine: Result - Labs CBC & Chem 7: 04/28/17 06:02 04/28/17 06:02 Labs: Short CBC 04/28/17 Range/Units 06:02 WBC 17.6 H D (4.3-11.1) K/mcL Hgb 11.2 L (11.5-15.4) g/dL Hct 37.4 (35.3-44.9) % Plt Count 450 H (140-400) K/mcL Neutrophils # 13.0 H (1.6-8.9) K/mcL BMP 04/28/17 06:02 Sodium 134 L Potassium 4.0 Chloride 95 L Carbon Dioxide 38 H BUN 17 Creatinine 0.77 Glucose 102 Calcium 9.0 Liver Function 04/28/17 Range/Units 06:02 Total Bilirubin 0.3 (0.3-1.0) mg/dL AST 10 L (13-39) Units/L ALT 10 (7-52) Units/L Alkaline Phosphatase 112 H (34-104) Units/L Albumin 3.2 L (3.5-5.7) g/dL - ABG Interpretation ABG results: PT/INR, D-dimer PT 12.4 Seconds (9.4-12.1) H 04/26/17 04:53 - Impressions Impressions Chest X-Ray 04/28/17 11:25 IMPRESSION: Compared to recent CT, airspace opacities seen most prominently at the lung bases and right apex are likely stable. Possible trace left effusion. D/ / 04/28/2017 15:51:32 Pietro Amezcua MD / mando Interpreting Provider: Pietro Amezcua MD - Attending Attestation I examined this patient and my medical decision-making was reviewed with the Resident Physician on 04/28/17. I agree with the documented findings, disposition and treatment plan as described except to the extent set forth below. Ms Cook is currently admitted for resp failure and pneumonia. She remains moderate to high risk due to potential for worsening clinical status. Ms Cook is resting in bed. She just got up to bathroom. No fever but still dyspneic and hypoxic. Coughing some. Exam alert. Comfortable Mucus membranes dry Heart distant Lungs with diffuse wheeze Abd soft I/P 1. Resp failure 2. PNA Further diagnoses and plan as above.
[2017-04-28] MEDS: Piperacillin/Tazobactam 3.375 GM/200 ML BAG IVPB SCH ×3 (13:02→22:05)
[2017-04-28] MEDS: MethylPREDNISolone 40 MG/ML VIAL IVP SCH (15:54)
[2017-04-29] MEDS: MethylPREDNISolone 40 MG/ML VIAL IVP SCH ×4 (01:49→23:31)
[2017-04-29] MEDS: Ipratropium/Albuterol Neb 3 ML IH SCH ×6 (03:51→23:53)
[2017-04-29] MEDS: *HR* Enoxaparin 40 MG/0.4 ML SYRINGE SQ SCH (05:01)
[2017-04-29] MEDS: Piperacillin/Tazobactam 3.375 GM/200 ML BAG IVPB SCH ×3 (05:02→20:37)
[2017-04-29] MEDS: Metoprolol XL (24 HR) Succ 50 MG TAB.ER.24H PO SCH (09:44)
[2017-04-29] MEDS: Acetaminophen 325 MG TABLET PO PRN (09:44)
[2017-04-29] MEDS: Aspirin 81 MG TAB.CHEW PO SCH (09:44)
--- NOTE | 2017-04-29 10:14 | Internal Med Progress Note ---
<Shantanu Alegre - Last Filed: 04/29/17 10:12> Date of Encounter: 04/29/17 Time of Encounter: 10:12 - Assessment and plan (1) Acute respiratory failure with hypoxia Current Visit: Yes Status: Acute Assessment and plan: Most likely multifactoral PNA + exacerbatino of COPD. currently stable. BNP, and trop elevated most likley due to demand ischemia from respiratory. unlikely PE, negative chest CTA. when patient was seen today, patient was tachycardic and hypertensive. now has leukocytosis WBC 17.6. F/U CXR - stable. - went back to IV Solumderol yesterday; will continue for a few more days, when she was converted to PO she declined the other day - ct lasix 20 mg qd; strict I/O - continue home BP rx - continue home oxycodone - continue levaquin + zosyn day 4 - continue respiratory support; now on bipap - tylenol PRN for headache - will need to setup stress test for outpatient on D/C (2) Ankle fracture, right Current Visit: Yes Status: Acute Assessment and plan: scheduled outpatient procedure was cancelled due to hypoxia. Will have to reschedule outpatient. Qualifiers: Encounter type: subsequent encounter Fracture type: closed Fracture healing: with routine healing Qualified Code(s): S82.891D - Other fracture of right lower leg, subsequent encounter for closed fracture with routine healing (3) Anxiety Current Visit: Yes Status: Chronic Assessment and plan: currently controlled. continue home meds. (4) CAD (coronary artery disease) Current Visit: Yes Status: Chronic Assessment and plan: previous CAD Qualifiers: Coronary Disease-Associated Artery/Lesion type: [place] artery [place] vs. transplanted heart: [place] heart Associated angina: without angina Qualified Code(s): I25.10 - Atherosclerotic heart disease of [place] coronary artery without angina pectoris (5) DVT prophylaxis Current Visit: Yes Status: Acute Assessment and plan: lovenox (6) Elevated troponin Current Visit: Yes Status: Acute Assessment and plan: most likely due to demand ischemia (7) GERD (gastroesophageal reflux disease) Current Visit: Yes Status: Chronic Assessment and plan: currently stable. Qualifiers: Esophagitis presence: without esophagitis Qualified Code(s): K21.9 - Gastro -esophageal reflux disease without esophagitis (8) HTN (hypertension) Current Visit: Yes Status: Chronic Assessment and plan: currently stable. Qualifiers: Hypertension type: essential hypertension Qualified Code(s): I10 - Essential (primary) hypertension (9) SANJUANA (obstructive sleep apnea) Current Visit: Yes Status: Chronic Assessment and plan: Bipap at night (10) Pneumonia Current Visit: Yes Status: Acute Assessment and plan: patient's PNA most likely community acquired. Patient developed symptoms 1 day prior to scheduled surgery. will continue respiratory support and abx support with levaquin + zosyn Qualifiers: Pneumonia type: due to unspecified organism Laterality: unspecified laterality Lung location: unspecified part of lung Qualified Code(s): J18.9 - Pneumonia, unspecified organism (11) Sepsis Current Visit: Yes Status: Resolved Assessment and plan: on admission: tachycardia, WBC 23506, tachypnea, bilateral pneumonia, Send blood and sputum cultures, lactate is WNL. currently non-septic and stable. - continue to monitor vitals Qualifiers: Sepsis type: sepsis due to unspecified organism Qualified Code(s): A41.9 - Sepsis, unspecified organism (12) Obesity (BMI 30.0-34.9) Current Visit: Yes Status: Acute Assessment and plan: to be managed outpatient - Subjective Interval history: Mr cook is 66 yo F with PMH advanced emphysema and COPD, with previous intubation, 2L O2 at home, CAD, hypertension, coronary artery disease presented to [employer] [facility] after being found hypoxic prior to a routine outpatient ortho surgery. The day prior to surgery, she had SOB, and had to up her home O2 to 3L. Today patient reports feeling better than yesterday but still feels "cruddy". She continues to have SOB, but does not need bipap at this time. Patient is resting comfortably during time of encounter. Patient denies CP, diaphoresis, n /v. - Constitutional Vitals: Temp Pulse Resp BP Pulse Ox 98.4 F 102 16 155/88 95 04/29/17 06:46 04/29/17 06:46 04/29/17 07:41 04/29/17 07:41 04/29/17 07:41 General appearance: Present: cooperative, mild distress, A&O X 3, pleasant, obese, answers questions appropriately - Respiratory Respiratory exam: Present: prolonged expiratory phase, respiratory distress, wheezes - Cardiovascular Cardiovascular exam: Present: RRR, +S1, +S2. Absent: diastolic murmur, gallop, rubs, systolic murmur - Extremities Exam Extremities exam: Present: warm, radial pulses palpable and symmetrical. Absent : calf tenderness, cyanotic, pedal edema - Psychiatric Psychiatric exam: Present: normal affect, normal mood Internal Medicine: Result - Labs CBC & Chem 7: 04/28/17 06:02 04/28/17 06:02 - ABG Interpretation ABG results: PT/INR, D-dimer PT 12.4 Seconds (9.4-12.1) H 04/26/17 04:53 - Impressions Impressions Chest X-Ray 04/28/17 11:25 IMPRESSION: Compared to recent CT, airspace opacities seen most prominently at the lung bases and right apex are likely stable. Possible trace left effusion. D/ / 04/28/2017 15:51:32 Pietro Amezcua MD / [facility] Interpreting Provider: Pietro Amezcua MD Consult Discharge Plan - Plan Referrals: Dion Whitman MD [Primary Care Provider] - <Filemon Lazo A - Last Filed: 04/29/17 15:40> Date of Encounter: 04/29/17 - Assessment and plan (1) Acute and chronic respiratory failure Current Visit: Yes Status: Acute Assessment and plan: Seems to be doing better with IV steroids. Qualifiers: Respiratory failure complication: hypoxia Qualified Code(s): J96.21 - Acute and chronic respiratory failure with hypoxia (2) Pneumonia Current Visit: Yes Status: Acute Qualifiers: Pneumonia type: due to unspecified organism Laterality: bilateral Lung location: unspecified part of lung Qualified Code(s): J18.9 - Pneumonia, unspecified organism (3) Sepsis Current Visit: Yes Status: Resolved Qualifiers: Sepsis type: sepsis due to unspecified organism Qualified Code(s): A41.9 - Sepsis, unspecified organism (4) CAD (coronary artery disease) Current Visit: Yes Status: Chronic Qualifiers: Coronary Disease-Associated Artery/Lesion type: [place] artery [place] vs. transplanted heart: [place] heart Associated angina: without angina Qualified Code(s): I25.10 - Atherosclerotic heart disease of [place] coronary artery without angina pectoris (5) HTN (hypertension) Current Visit: Yes Status: Chronic Qualifiers: Hypertension type: essential hypertension Qualified Code(s): I10 - Essential (primary) hypertension (6) SANJUANA (obstructive sleep apnea) Current Visit: Yes Status: Chronic (7) Ankle fracture, right Current Visit: Yes Status: Acute Qualifiers: Encounter type: subsequent encounter Fracture type: closed Fracture healing: with routine healing Qualified Code(s): S82.891D - Other fracture of right lower leg, subsequent encounter for closed fracture with routine healing (8) Obesity (BMI 30.0-34.9) Current Visit: Yes Status: Acute (9) GERD (gastroesophageal reflux disease) Current Visit: Yes Status: Chronic Qualifiers: Esophagitis presence: without esophagitis Qualified Code(s): K21.9 - Gastro -esophageal reflux disease without esophagitis - Constitutional Vitals: Temp Pulse Resp BP Pulse Ox 98.3 F 97 16 159/101 98 04/29/17 11:34 04/29/17 11:34 04/29/17 11:34 04/29/17 11:34 04/29/17 11:34 Internal Medicine: Result - Labs CBC & Chem 7: 04/29/17 11:55 04/29/17 11:55 Labs: Short CBC 04/29/17 Range/Units 11:55 WBC 9.3 (4.3-11.1) K/mcL Hgb 11.1 L (11.5-15.4) g/dL Hct 35.2 L (35.3-44.9) % Plt Count 357 (140-400) K/mcL Neutrophils # 6.8 (1.6-8.9) K/mcL BMP 04/29/17 11:55 Sodium 132 L Potassium 3.9 Chloride 88 L Carbon Dioxide 43 H* BUN 14 Creatinine 0.65 Glucose 162 H Calcium 8.4 L Liver Function 04/29/17 Range/Units 11:55 Total Bilirubin 0.3 (0.3-1.0) mg/dL AST 9 L (13-39) Units/L ALT 9 (7-52) Units/L Alkaline Phosphatase 98 (34-104) Units/L Albumin 3.0 L (3.5-5.7) g/dL - ABG Interpretation ABG results: PT/INR, D-dimer PT 12.4 Seconds (9.4-12.1) H 04/26/17 04:53 - Impressions Impressions Chest X-Ray 04/28/17 11:25 IMPRESSION: Compared to recent CT, airspace opacities seen most prominently at the lung bases and right apex are likely stable. Possible trace left effusion. D/ / 04/28/2017 15:51:32 Pietro Amezcua MD / [facility] Interpreting Provider: Pietro Amezcua MD - Attending Attestation I examined this patient and my medical decision-making was reviewed with the Resident Physician on 04/29/17. I agree with the documented findings, disposition and treatment plan as described except to the extent set forth below. Ms Cook is currently admitted for acute resp failure and pneumonia. She remains moderate to high risk due to potential for worsening clinical status. Ms Cook is breathing somewhat better today. Feels that the IV steroids help more. No fever. Wore bipap about 5 hours last night. No GI issues. Exam alert. Comfortable Mucus membranes dry Heart tachy and regular. Lungs with scattered rhonchi and wheeze but seems better than yesterday Abd soft I/p 1. Resp failure 2. Pneumonia Further diagnoses and plan as above.
[2017-04-29] MEDS: Levofloxacin 750 MG/150 ML 750 MG/150 ML BAG IVPB SCH (10:16)
[2017-04-29 12:16] LABS: Basophils # 0.1 K/mcL (0.0-0.2); Basophils % 0.6 %; Hematocrit 35.2 % (35.3-44.9); Hemoglobin 11.1 g/dL (11.5-15.4); Immature Granulocytes % 8.8 % (0-4); Lymphocytes # 1.1 K/mcL (0.6-4.6); Lymphocytes % 11.3 %; Mean Corpuscular HGB Conc 31.5 g/dL (31.6-35.5); Mean Corpuscular Hemoglobin 29.4 pg (28.0-33.3); Mean Corpuscular Volume 93.4 fL (83.0-100.0); Mean Platelet Volume 9.1 fL (9.4-12.4); Monocytes # 0.6 K/mcL (0.0-1.3); Neutrophils # 6.8 K/mcL (1.6-8.9); Platelet Count 357 K/mcL (140-400); Red Blood Count 3.77 M/mcL (3.82-4.97); Red Cell Distribution Width 13.1 % (11.5-14.5); Segmented Neutrophils % 73.3 %
[2017-04-29 12:36] LABS: Alanine Aminotransferase 9 Units/L (7-52); Albumin/Globulin Ratio 1.2 (1.1-2.2); Alkaline Phosphatase 98 Units/L (34-104); Aspartate Amino Transferase 9 Units/L (13-39); BUN/Creatinine Ratio 22 (6-26); Bilirubin,Total 0.3 mg/dL (0.3-1.0); Blood Urea Nitrogen 14 mg/dL (8-23); Calcium 8.4 mg/dL (8.6-10.3); Carbon Dioxide 43 mEq/L (23-29); Chloride 88 mEq/L (98-107); Globulin 2.6 g/dL (2.4-3.5); Glucose 162 mg/dL (70-105); Osmolality,Calculated 278 (280-300); Potassium 3.9 mEq/L (3.5-5.1); Sodium 132 mEq/L (136-145); Total Protein 5.6 g/dL (6.4-8.9); eGFR For African Americans > 60 (> 60); eGFR For Non-African Americans > 60 (> 60)
[2017-04-29 12:49] LABS: Platelet Estimate Normal (Normal)
[2017-04-29] MEDS: *HR* HYDROcodone/Acet 5/325 mg TABLET PO PRN (20:33)
[2017-04-29] MEDS: ALPRAZolam 0.25 MG TABLET PO PRN (23:30)
[2017-04-30 03:53] LABS: Basophils # 0.1 K/mcL (0.0-0.2); Basophils % 0.7 %; Hematocrit 34.3 % (35.3-44.9); Hemoglobin 10.8 g/dL (11.5-15.4); Immature Granulocytes % 7.7 % (0-4); Lymphocytes # 0.8 K/mcL (0.6-4.6); Lymphocytes % 9.1 %; Mean Corpuscular HGB Conc 31.5 g/dL (31.6-35.5); Mean Corpuscular Hemoglobin 29.3 pg (28.0-33.3); Mean Corpuscular Volume 93.2 fL (83.0-100.0); Mean Platelet Volume 9.2 fL (9.4-12.4); Monocytes # 0.3 K/mcL (0.0-1.3); Monocytes % 3.9 %; Platelet Count 355 K/mcL (140-400); Red Blood Count 3.68 M/mcL (3.82-4.97); Red Cell Distribution Width 12.9 % (11.5-14.5); Segmented Neutrophils % 78.6 %
[2017-04-30 03:59] LABS: Neutrophils # 6.8 K/mcL (1.6-8.9)
[2017-04-30] MEDS: Ipratropium/Albuterol Neb 3 ML IH SCH ×5 (04:46→19:54)
[2017-04-30 05:08] LABS: Alanine Aminotransferase 10 Units/L (7-52); Albumin 2.9 g/dL (3.5-5.7); Albumin/Globulin Ratio 1.2 (1.1-2.2); Alkaline Phosphatase 96 Units/L (34-104); Aspartate Amino Transferase 11 Units/L (13-39); BUN/Creatinine Ratio 35 (6-26); Bilirubin,Total 0.3 mg/dL (0.3-1.0); Blood Urea Nitrogen 20 mg/dL (8-23); Calcium 8.4 mg/dL (8.6-10.3); Carbon Dioxide 37 mEq/L (23-29); Chloride 89 mEq/L (98-107); Globulin 2.5 g/dL (2.4-3.5); Glucose 152 mg/dL (70-105); Osmolality,Calculated 280 (280-300); Potassium 4.2 mEq/L (3.5-5.1); Sodium 132 mEq/L (136-145); Total Protein 5.4 g/dL (6.4-8.9); eGFR For African Americans > 60 (> 60); eGFR For Non-African Americans > 60 (> 60)
[2017-04-30] MEDS: Piperacillin/Tazobactam 3.375 GM/200 ML BAG IVPB SCH ×2 (05:24→12:55)
[2017-04-30] MEDS: *HR* Enoxaparin 40 MG/0.4 ML SYRINGE SQ SCH (05:25)
[2017-04-30 05:29] LABS: Platelet Estimate Normal (Normal)
[2017-04-30] MEDS: Aspirin 81 MG TAB.CHEW PO SCH (09:46)
[2017-04-30] MEDS: Metoprolol XL (24 HR) Succ 50 MG TAB.ER.24H PO SCH (09:46)
[2017-04-30] MEDS: MethylPREDNISolone 40 MG/ML VIAL IVP SCH ×2 (09:46→16:08)
[2017-04-30] MEDS: Levofloxacin 750 MG/150 ML 750 MG/150 ML BAG IVPB SCH (09:47)
[2017-04-30] MEDS: *HR* HYDROcodone/Acet 5/325 mg TABLET PO PRN ×2 (13:46→23:01)
[2017-04-30] MEDS: Budesonide/Formoterol 160/4.5 MDI IH SCH ×2 (15:56→19:55)
--- NOTE | 2017-04-30 16:59 | Internal Med Progress Note ---
<Geo Mcfarland - Last Filed: 04/30/17 17:51> Date of Encounter: 04/30/17 Time of Encounter: 11:00 - Assessment and plan (1) Acute hypercapnic respiratory failure Current Visit: No Status: Resolved Assessment and plan: Patient presented with diminished respiratory status in the setting of multifocal pneumonia and COPD exacerbation. Over the weekend she required BiPAP and increased oxygen needs and was placed on IV steroids with significant improvement arrest 3 status. She is currently on 4 L nasal cane oxygen for which she is tolerating and maintaining oxygen saturations are 95%. - Clinically she is improving - We will continue Levaquin and Zosyn day 6 with a total of 7 day antibiotic coverage. - Decrease IV steroids to 40 mg IV every 12 hours - Continue bronchodilator therapy - Continue to wean oxygen requirements as tolerated. Patient states that she wears oxygen occasionally at home but not all the time. (2) COPD with exacerbation Current Visit: Yes Status: Acute Assessment and plan: Plan as discussed above. (3) HTN (hypertension) Current Visit: Yes Status: Chronic Assessment and plan: currently controlled with Cozaar 25 mg by mouth daily, Toprol-XL 100 mg by mouth daily, hydralazine 5 mg IV every 6 hours. - Continue to monitor and adjust htn coverage as necessary Qualifiers: Hypertension type: essential hypertension Qualified Code(s): I10 - Essential (primary) hypertension (4) SANJUANA (obstructive sleep apnea) Current Visit: Yes Status: Chronic Assessment and plan: Bipap at night (5) Pneumonia Current Visit: Yes Status: Acute Assessment and plan: CAP. - Patient developed symptoms 1 day prior to scheduled surgery. - will continue respiratory support and abx support with levaquin + zosyn Qualifiers: Pneumonia type: due to unspecified organism Laterality: unspecified laterality Lung location: unspecified part of lung Qualified Code(s): J18.9 - Pneumonia, unspecified organism (6) Ankle fracture, right Current Visit: Yes Status: Acute Assessment and plan: scheduled outpatient procedure was cancelled due to hypoxia. patient will have to reschedule outpatient with orthopedics. Qualifiers: Encounter type: subsequent encounter Fracture type: closed Fracture healing: with routine healing Qualified Code(s): S82.891D - Other fracture of right lower leg, subsequent encounter for closed fracture with routine healing (7) Obesity (BMI 30.0-34.9) Current Visit: Yes Status: Acute Assessment and plan: to be managed outpatient (8) DVT prophylaxis Current Visit: Yes Status: Acute Assessment and plan: lovenox 40mg SQ daily - Subjective Interval history: Mrs. Cook has been seen in palliative patient bedside this morning. She is alert awake interactive distress. She feels that arrest free status is much improved since going back on IV steroids. She is hoping for discharge the next several days if she continues to improve. He agrees to get up in the chair, uses her bedside spirometer. She understands she will need home health at the time of discharge. She does have oxygen at home if necessary. - Constitutional Vitals: Temp Pulse Resp BP Pulse Ox 98.1 F 101 16 159/84 94 04/30/17 11:00 04/30/17 11:00 04/30/17 15:57 04/30/17 11:00 04/30/17 15:57 General appearance: Present: cooperative, mild distress, A&O X 3, pleasant, obese, answers questions appropriately Exam: General: Patient alert, awake, oriented 3, interactive, in no acute distress HEENT: Normocephalic, atraumatic, pupils equal reactive to light, nasal cavity patent and open septum median position, oral mucosa moist, uvula midline, neck supple trachea midline no palpable lymphadenopathy, no thyromegaly. Chest: Symmetric bilateral correlating with respiratory effort, effort nonlabored. Cardiac: Regular rate and rhythm, positive S1 and S2. no bruits appreciated bilateral carotids, Radial pulses 2+ bilateral, posterior tibial and dorsal pedal pulses 2+ bilateral. Respiratory: Diminished breath sounds with inhalation and exhalation. Diffuse inspiratory and expiratory wheezing Abdomen: Soft, nontender, positive bowel sounds, no palpable masses appreciated on examination Extremities: Symmetric bilateral, bilateral lower extremities without erythema or edema patient moving all 4 extremities spontaneously. Neurologic: No focal deficits appreciated on examination. Face symmetric, muscle strength symmetric bilateral upper and lower extremities. Internal Medicine: Result - Labs CBC & Chem 7: 04/30/17 03:08 04/30/17 03:08 Labs: Short CBC 04/30/17 Range/Units 03:08 WBC 8.6 (4.3-11.1) K/mcL Hgb 10.8 L (11.5-15.4) g/dL Hct 34.3 L (35.3-44.9) % Plt Count 355 (140-400) K/mcL Neutrophils # 6.8 (1.6-8.9) K/mcL BMP 04/30/17 03:08 Sodium 132 L Potassium 4.2 Chloride 89 L Carbon Dioxide 37 H BUN 20 Creatinine 0.57 L Glucose 152 H Calcium 8.4 L Liver Function 04/30/17 Range/Units 03:08 Total Bilirubin 0.3 (0.3-1.0) mg/dL AST 11 L (13-39) Units/L ALT 10 (7-52) Units/L Alkaline Phosphatase 96 (34-104) Units/L Albumin 2.9 L (3.5-5.7) g/dL - ABG Interpretation ABG results: PT/INR, D-dimer PT 12.4 Seconds (9.4-12.1) H 04/26/17 04:53 Consult Discharge Plan - Plan Referrals: Dion Whitman MD [Primary Care Provider] - <Filemon Lazo A - Last Filed: 04/30/17 18:54> Date of Encounter: 04/30/17 - Assessment and plan (1) Acute and chronic respiratory failure Current Visit: Yes Status: Acute Qualifiers: Respiratory failure complication: hypoxia Qualified Code(s): J96.21 - Acute and chronic respiratory failure with hypoxia (2) Pneumonia Current Visit: Yes Status: Acute Qualifiers: Pneumonia type: due to unspecified organism Laterality: bilateral Lung location: unspecified part of lung Qualified Code(s): J18.9 - Pneumonia, unspecified organism (3) Sepsis Current Visit: Yes Status: Resolved Qualifiers: Sepsis type: sepsis due to unspecified organism Qualified Code(s): A41.9 - Sepsis, unspecified organism (4) CAD (coronary artery disease) Current Visit: Yes Status: Chronic Qualifiers: Coronary Disease-Associated Artery/Lesion type: [place] artery [place] vs. transplanted heart: [place] heart Associated angina: without angina Qualified Code(s): I25.10 - Atherosclerotic heart disease of [place] coronary artery without angina pectoris (5) HTN (hypertension) Current Visit: Yes Status: Chronic Qualifiers: Hypertension type: essential hypertension Qualified Code(s): I10 - Essential (primary) hypertension (6) SANJUANA (obstructive sleep apnea) Current Visit: Yes Status: Chronic (7) Ankle fracture, right Current Visit: Yes Status: Acute Qualifiers: Encounter type: subsequent encounter Fracture type: closed Fracture healing: with routine healing Qualified Code(s): S82.891D - Other fracture of right lower leg, subsequent encounter for closed fracture with routine healing (8) Obesity (BMI 30.0-34.9) Current Visit: Yes Status: Acute (9) GERD (gastroesophageal reflux disease) Current Visit: Yes Status: Chronic Qualifiers: Esophagitis presence: without esophagitis Qualified Code(s): K21.9 - Gastro -esophageal reflux disease without esophagitis - Constitutional Vitals: Temp Pulse Resp BP Pulse Ox 97.9 F 88 16 145/91 94 04/30/17 15:50 04/30/17 15:50 04/30/17 15:57 04/30/17 15:50 04/30/17 15:57 Internal Medicine: Result - Labs CBC & Chem 7: 04/30/17 03:08 04/30/17 03:08 Labs: Short CBC 04/30/17 Range/Units 03:08 WBC 8.6 (4.3-11.1) K/mcL Hgb 10.8 L (11.5-15.4) g/dL Hct 34.3 L (35.3-44.9) % Plt Count 355 (140-400) K/mcL Neutrophils # 6.8 (1.6-8.9) K/mcL BMP 04/30/17 03:08 Sodium 132 L Potassium 4.2 Chloride 89 L Carbon Dioxide 37 H BUN 20 Creatinine 0.57 L Glucose 152 H Calcium 8.4 L Liver Function 04/30/17 Range/Units 03:08 Total Bilirubin 0.3 (0.3-1.0) mg/dL AST 11 L (13-39) Units/L ALT 10 (7-52) Units/L Alkaline Phosphatase 96 (34-104) Units/L Albumin 2.9 L (3.5-5.7) g/dL - ABG Interpretation ABG results: PT/INR, D-dimer PT 12.4 Seconds (9.4-12.1) H 04/26/17 04:53 - Attending Attestation I examined this patient and my medical decision-making was reviewed with the Resident Physician on 04/30/17. I agree with the documented findings, disposition and treatment plan as described except to the extent set forth below. Ms Cook is currently admitted for resp failure, multifocal PNA and COPD. She remains moderate to high risk due to potential for worsening clinical status. Ms Cook is continuing to slowly improve. She is coughing less. No fever. Needing less bipap. Exam alert Comfortable Mucus membranes dry Heart reg Less wheeze today I/P 1. Resp failure 2. PNA Further diagnoses and plan as above.
[2017-04-30] MEDS: ALPRAZolam 0.25 MG TABLET PO PRN (22:48)
[2017-05-01] MEDS: Ipratropium/Albuterol Neb 3 ML IH SCH ×6 (00:23→20:53)
[2017-05-01 05:02] LABS: Hematocrit 33.7 % (35.3-44.9); Hemoglobin 10.6 g/dL (11.5-15.4); Mean Corpuscular HGB Conc 31.5 g/dL (31.6-35.5); Mean Corpuscular Volume 92.1 fL (83.0-100.0); Mean Platelet Volume 9.3 fL (9.4-12.4); Platelet Count 374 K/mcL (140-400); Red Blood Count 3.66 M/mcL (3.82-4.97)
[2017-05-01 05:06] LABS: Neutrophils # 5.7 K/mcL (1.6-8.9)
[2017-05-01 05:26] LABS: Alanine Aminotransferase 12 Units/L (7-52); Albumin 2.7 g/dL (3.5-5.7); Albumin/Globulin Ratio 1.1 (1.1-2.2); Alkaline Phosphatase 92 Units/L (34-104); Aspartate Amino Transferase 9 Units/L (13-39); BUN/Creatinine Ratio 34 (6-26); Bilirubin,Total 0.3 mg/dL (0.3-1.0); Blood Urea Nitrogen 21 mg/dL (8-23); Calcium 8.3 mg/dL (8.6-10.3); Carbon Dioxide 40 mEq/L (23-29); Chloride 91 mEq/L (98-107); Globulin 2.4 g/dL (2.4-3.5); Glucose 111 mg/dL (70-105); Osmolality,Calculated 280 (280-300); Sodium 133 mEq/L (136-145); Total Protein 5.1 g/dL (6.4-8.9); eGFR For African Americans > 60 (> 60); eGFR For Non-African Americans > 60 (> 60)
[2017-05-01 05:31] LABS: Lymphocytes # 2.9 K/mcL (0.6-4.6)
[2017-05-01 05:32] LABS: Platelet Estimate Normal (Normal); Reactive Lymphocytes Present (Not Present)
[2017-05-01] MEDS: *HR* Enoxaparin 40 MG/0.4 ML SYRINGE SQ SCH (05:55)
[2017-05-01] MEDS ORDERED: MethylPREDNISolone 40 MG/ML VIAL IVP SCH (06:00)
[2017-05-01] MEDS: Budesonide/Formoterol 160/4.5 MDI IH SCH ×2 (07:45→20:54)
--- NOTE | 2017-05-01 08:06 | Internal Med Progress Note ---
<Shantanu Alegre - Last Filed: 05/01/17 08:17> Date of Encounter: 05/01/17 Time of Encounter: 08:06 - Assessment and plan (1) Acute respiratory failure with hypoxia Current Visit: Yes Status: Acute Assessment and plan: Most likely multifactoral PNA + exacerbatino of COPD. currently stable. BNP, and trop elevated most likley due to demand ischemia from respiratory. unlikely PE, negative chest CTA. when patient was seen today, patient was tachycardic and hypertensive. no leukocytosis, fever. F/U CXR - stable. Patient did have HCO3- 40 last night, and was placed back on bipap, will continue IV steroids for a couple more days. - continue solu-medrol 40 q12h for 1 more day, then will deescalate tomorrow if patient continues to improve - ct lasix 20 mg qd; strict I/O - continue home BP rx - continue home oxycodone - continue levaquin + zosyn day 7; last day of abx - continue respiratory support - tylenol PRN for headache - will need to setup stress test for outpatient on D/C - will need home health on D/C; expected in the next couple of days (2) Ankle fracture, right Current Visit: Yes Status: Acute Assessment and plan: scheduled outpatient procedure was cancelled due to hypoxia. patient will have to reschedule outpatient with orthopedics. Qualifiers: Encounter type: subsequent encounter Fracture type: closed Fracture healing: with routine healing Qualified Code(s): S82.891D - Other fracture of right lower leg, subsequent encounter for closed fracture with routine healing (3) Anxiety Current Visit: Yes Status: Chronic Assessment and plan: currently controlled. continue home meds. (4) CAD (coronary artery disease) Current Visit: Yes Status: Chronic Assessment and plan: previous CAD Qualifiers: Coronary Disease-Associated Artery/Lesion type: [place] artery [place] vs. transplanted heart: [place] heart Associated angina: without angina Qualified Code(s): I25.10 - Atherosclerotic heart disease of [place] coronary artery without angina pectoris (5) DVT prophylaxis Current Visit: Yes Status: Acute Assessment and plan: lovenox 40mg SQ daily (6) Elevated troponin Current Visit: Yes Status: Acute Assessment and plan: most likely due to demand ischemia (7) GERD (gastroesophageal reflux disease) Current Visit: Yes Status: Chronic Assessment and plan: currently stable. Qualifiers: Esophagitis presence: without esophagitis Qualified Code(s): K21.9 - Gastro -esophageal reflux disease without esophagitis (8) HTN (hypertension) Current Visit: Yes Status: Chronic Assessment and plan: currently controlled with Cozaar 25 mg by mouth daily, Toprol-XL 100 mg by mouth daily, hydralazine 5 mg IV every 6 hours. - Continue to monitor and adjust htn coverage as necessary Qualifiers: Hypertension type: essential hypertension Qualified Code(s): I10 - Essential (primary) hypertension (9) SANJUANA (obstructive sleep apnea) Current Visit: Yes Status: Chronic Assessment and plan: Bipap at night (10) Pneumonia Current Visit: Yes Status: Acute Assessment and plan: CAP. - Patient developed symptoms 1 day prior to scheduled surgery. - will continue respiratory support and abx support with levaquin + zosyn Qualifiers: Pneumonia type: due to unspecified organism Laterality: unspecified laterality Lung location: unspecified part of lung Qualified Code(s): J18.9 - Pneumonia, unspecified organism (11) Sepsis Current Visit: Yes Status: Resolved Assessment and plan: on admission: tachycardia, WBC 71078, tachypnea, bilateral pneumonia, Send blood and sputum cultures, lactate is WNL. currently non-septic and stable. - continue to monitor vitals Qualifiers: Sepsis type: sepsis due to unspecified organism Qualified Code(s): A41.9 - Sepsis, unspecified organism (12) Obesity (BMI 30.0-34.9) Current Visit: Yes Status: Acute Assessment and plan: to be managed outpatient - Subjective Interval history: Mr franco is 66 yo F with PMH advanced emphysema and COPD, with previous intubation, 2L O2 at home, CAD, hypertension, coronary artery disease presented to [facility] after being found hypoxic prior to a routine outpatient ortho surgery. The day prior to surgery, she had SOB, and had to up her home O2 to 3L. Patient today reports that she's feeling better. Continues to have SOB at rest but has improved. Patient reports she's able to situp today and will try to move around. Patient denies CP, diaphoresis, n/v. - Constitutional Vitals: Temp Pulse Resp BP Pulse Ox 98.2 F 94 16 138/82 91 05/01/17 07:00 05/01/17 07:00 05/01/17 07:47 05/01/17 07:00 05/01/17 07:47 General appearance: Present: cooperative, A&O X 3, pleasant, no acute distress, obese, answers questions appropriately - Respiratory Respiratory exam: Present: decreased breath sounds, prolonged expiratory phase, wheezes. Absent: respiratory distress, stridor - Extremities Exam Extremities exam: Present: normal capillary refill, warm, radial pulses palpable and symmetrical. Absent: calf tenderness, cyanotic, pedal edema - Psychiatric Psychiatric exam: Present: normal affect, normal mood Internal Medicine: Result - Labs CBC & Chem 7: 05/01/17 03:51 05/01/17 03:51 Labs: Short CBC 05/01/17 Range/Units 03:51 WBC 8.6 (4.3-11.1) K/mcL Hgb 10.6 L (11.5-15.4) g/dL Hct 33.7 L (35.3-44.9) % Plt Count 374 (140-400) K/mcL Neutrophils # 5.7 (1.6-8.9) K/mcL BMP 05/01/17 03:51 Sodium 133 L Potassium 4.0 Chloride 91 L Carbon Dioxide 40 H* BUN 21 Creatinine 0.61 Glucose 111 H Calcium 8.3 L Liver Function 05/01/17 Range/Units 03:51 Total Bilirubin 0.3 (0.3-1.0) mg/dL AST 9 L (13-39) Units/L ALT 12 (7-52) Units/L Alkaline Phosphatase 92 (34-104) Units/L Albumin 2.7 L (3.5-5.7) g/dL - ABG Interpretation ABG results: PT/INR, D-dimer PT 12.4 Seconds (9.4-12.1) H 04/26/17 04:53 Consult Discharge Plan - Plan Referrals: Dion Whitman MD [Primary Care Provider] - <Kasi Armendariz - Last Filed: 05/01/17 17:18> Date of Encounter: 05/01/17 - Constitutional Vitals: Temp Pulse Resp BP Pulse Ox 98.1 F 93 18 134/82 96 05/01/17 11:00 05/01/17 15:00 05/01/17 15:00 05/01/17 15:00 05/01/17 15:00 Internal Medicine: Result - Labs CBC & Chem 7: 05/01/17 03:51 05/01/17 03:51 Labs: Short CBC 05/01/17 Range/Units 03:51 WBC 8.6 (4.3-11.1) K/mcL Hgb 10.6 L (11.5-15.4) g/dL Hct 33.7 L (35.3-44.9) % Plt Count 374 (140-400) K/mcL Neutrophils # 5.7 (1.6-8.9) K/mcL BMP 05/01/17 03:51 Sodium 133 L Potassium 4.0 Chloride 91 L Carbon Dioxide 40 H* BUN 21 Creatinine 0.61 Glucose 111 H Calcium 8.3 L Liver Function 05/01/17 Range/Units 03:51 Total Bilirubin 0.3 (0.3-1.0) mg/dL AST 9 L (13-39) Units/L ALT 12 (7-52) Units/L Alkaline Phosphatase 92 (34-104) Units/L Albumin 2.7 L (3.5-5.7) g/dL - ABG Interpretation ABG results: PT/INR, D-dimer PT 12.4 Seconds (9.4-12.1) H 04/26/17 04:53 - Impressions Impressions Chest X-Ray 04/28/17 11:25 IMPRESSION: Compared to recent CT, airspace opacities seen most prominently at the lung bases and right apex are likely stable. Possible trace left effusion. D/ / 04/28/2017 15:51:32 Pietro Amezcua MD / [facility] Interpreting Provider: Pietro Amezcua MD - Attending Attestation I examined this patient and my medical decision-making was reviewed with the Resident Physician. I agree with the documented findings, disposition and treatment plan as described except to the extent set forth below. 66/female admitted with elevated troponin. Seen by cardiology and at that time patient refused cardiac catheterization. history of for COPD. Still actively smoking. Today I had a long discussion with the patient regarding cardiac catheterization and she agreed to undergo cardiac catheterization. Tomorrow we will get cardiology to see this patient.
[2017-05-01] MEDS: Aspirin 81 MG TAB.CHEW PO SCH (08:14)
[2017-05-01] MEDS: Metoprolol XL (24 HR) Succ 50 MG TAB.ER.24H PO SCH (08:14)
[2017-05-01] MEDS: *HR* HYDROcodone/Acet 5/325 mg TABLET PO PRN ×4 (08:14→22:16)
[2017-05-01] MEDS ORDERED: levoFLOXacin 750 MG TABLET PO SCH (09:00)
[2017-05-01] MEDS: predniSONE 20 MG TABLET PO SCH (16:23)
[2017-05-01] MEDS: ALPRAZolam 0.25 MG TABLET PO PRN (23:28)
[2017-05-02] MEDS: Ipratropium/Albuterol Neb 3 ML IH SCH ×6 (00:08→19:51)
[2017-05-02 05:37] LABS: Basophils % 0.3 %; Hematocrit 35.4 % (35.3-44.9); Hemoglobin 11.2 g/dL (11.5-15.4); Immature Granulocytes % 5.9 % (0-4); Lymphocytes # 0.7 K/mcL (0.6-4.6); Lymphocytes % 8.5 %; Mean Corpuscular HGB Conc 31.6 g/dL (31.6-35.5); Mean Corpuscular Hemoglobin 29.1 pg (28.0-33.3); Mean Corpuscular Volume 91.9 fL (83.0-100.0); Mean Platelet Volume 9.2 fL (9.4-12.4); Monocytes # 0.3 K/mcL (0.0-1.3); Monocytes % 4.4 %; Neutrophils # 6.2 K/mcL (1.6-8.9); Platelet Count 380 K/mcL (140-400); Red Blood Count 3.85 M/mcL (3.82-4.97); Red Cell Distribution Width 13.2 % (11.5-14.5); Segmented Neutrophils % 80.9 %
[2017-05-02 06:01] LABS: Platelet Estimate Normal (Normal)
[2017-05-02 06:15] LABS: BUN/Creatinine Ratio 34 (6-26); Blood Urea Nitrogen 21 mg/dL (8-23); Calcium 8.3 mg/dL (8.6-10.3); Carbon Dioxide 39 mEq/L (23-29); Chloride 91 mEq/L (98-107); Glucose 140 mg/dL (70-105); Osmolality,Calculated 281 (280-300); Potassium 4.1 mEq/L (3.5-5.1); Sodium 133 mEq/L (136-145); eGFR For African Americans > 60 (> 60); eGFR For Non-African Americans > 60 (> 60)
[2017-05-02] MEDS: *HR* Enoxaparin 40 MG/0.4 ML SYRINGE SQ SCH (06:37)
[2017-05-02] MEDS: Budesonide/Formoterol 160/4.5 MDI IH SCH ×2 (07:41→19:51)
[2017-05-02] MEDS: predniSONE 20 MG TABLET PO SCH (09:07)
[2017-05-02] MEDS: Metoprolol XL (24 HR) Succ 50 MG TAB.ER.24H PO SCH (09:07)
[2017-05-02] MEDS: *HR* HYDROcodone/Acet 5/325 mg TABLET PO PRN ×2 (09:08→18:04)
[2017-05-02] MEDS: Aspirin 81 MG TAB.CHEW PO SCH (09:08)
--- NOTE | 2017-05-02 11:20 | Internal Med Progress Note ---
<Geo Mcfarland - Last Filed: 05/02/17 11:29> Date of Encounter: 05/02/17 Time of Encounter: 07:55 - Assessment and plan (1) Acute hypercapnic respiratory failure Current Visit: No Status: Resolved Assessment and plan: Patient presented with diminished respiratory status in the setting of multifocal pneumonia and COPD exacerbation. Respiratory status has been stable , continues to have difficulty weaning off oxygen. She is currently on 2 L nasal cane oxygen for which she is tolerating and maintaining oxygen saturations are 95%. - Clinically she is improving - Continue prednisone 40 mg by mouth daily until Sunday - Continue bronchodilator therapy - Continue to wean oxygen requirements as tolerated. Patient states that she wears oxygen occasionally at home but not all the time. - We will likely need oxygen qualification prior to discharge. (2) COPD with exacerbation Current Visit: Yes Status: Acute Assessment and plan: Plan as discussed above. (3) HTN (hypertension) Current Visit: Yes Status: Chronic Assessment and plan: 05/02: Blood pressure has been appropriate on current antihypertensive coverage. currently controlled with Cozaar 25 mg by mouth daily, Toprol-XL 100 mg by mouth daily, hydralazine 5 mg IV every 6 hours. - Continue to monitor and adjust htn coverage as necessary Qualifiers: Hypertension type: essential hypertension Qualified Code(s): I10 - Essential (primary) hypertension (4) SANJUANA (obstructive sleep apnea) Current Visit: Yes Status: Chronic Assessment and plan: Known history of SANJUANA, patient wears BiPAP at home. Continue Bipap at night (5) Pneumonia Current Visit: Yes Status: Acute Assessment and plan: We acquired pneumonia in the setting of chronic respiratory failure. - Patient is completed antibiotic coverage in improving appropriately. - Continue to monitor during inpatient stay. Qualifiers: Pneumonia type: due to unspecified organism Laterality: unspecified laterality Lung location: unspecified part of lung Qualified Code(s): J18.9 - Pneumonia, unspecified organism (6) Ankle fracture, right Current Visit: Yes Status: Acute Assessment and plan: scheduled outpatient procedure was cancelled due to hypoxia. patient will have to reschedule outpatient with orthopedics. 05/02: Continue with current plan. Qualifiers: Encounter type: subsequent encounter Fracture type: closed Fracture healing: with routine healing Qualified Code(s): S82.891D - Other fracture of right lower leg, subsequent encounter for closed fracture with routine healing (7) Obesity (BMI 30.0-34.9) Current Visit: Yes Status: Acute Assessment and plan: Patient has a BMI of 33.8 this is likely contributor to her chronic metabolic conditions. Patient benefits from dietary modifications lifestyle improvement. Continue the outpatient setting. (8) Elevated troponin Current Visit: Yes Status: Acute Assessment and plan: Mrs. Cook admitted with acute on chronic respiratory failure elevated troponins, and has been seen by cardiology during this inpatient stay. She started a stress test but was unable to complete it at bedtime due to her respiratory status. Findings on that stress test demonstrated mild intensity inferior wall and apical perfusion defect. - Discussed patient's case with Dr. Novoa, they have evaluated her at bedside and will perform a stress test now that her respiration status has improved with plans to complete tomorrow. - We will need to hold beta brenda this evening (9) DVT prophylaxis Current Visit: Yes Status: Acute Assessment and plan: lovenox 40mg SQ daily - Subjective Interval history: Mrs. Cook has been seen in palliative patient bedside this morning. She is alert awake interactive distress. She continues required 2 L nasal cannula oxygen at baseline to maintain oxygen saturations greater than 90%. She does have home oxygen if necessary. No acute events overnight. Denies any chest pain, chest pressure, worsening of her history status, nausea vomiting diarrhea constipation. Potential for LHC was discussed with the patient who is agreeable. Patient's case discussed with cardiology who will evaluate the patient this afternoon. - Constitutional Vitals: Temp Pulse Resp BP Pulse Ox 97.8 F 98 16 141/79 99 05/02/17 07:43 05/02/17 07:43 05/02/17 07:43 05/02/17 07:43 05/02/17 07:43 General appearance: Present: cooperative, A&O X 3, pleasant, no acute distress, obese, answers questions appropriately Exam: General: Patient alert, awake, oriented 3, interactive, in no acute distress HEENT: Normocephalic, atraumatic, pupils equal reactive to light, nasal cavity patent and open septum median position, oral mucosa moist, uvula midline, neck supple trachea midline no palpable lymphadenopathy, no thyromegaly. Chest: Symmetric bilateral correlating with respiratory effort, effort nonlabored. Cardiac: Regular rate and rhythm, positive S1 and S2. no bruits appreciated bilateral carotids, Radial pulses 2+ bilateral, posterior tibial and dorsal pedal pulses 2+ bilateral. Respiratory: Diminished breath sounds with inhalation and exhalation. CTABL Abdomen: Soft, nontender, positive bowel sounds, no palpable masses appreciated on examination Extremities: Symmetric bilateral, bilateral lower extremities without erythema or edema patient moving all 4 extremities spontaneously. Neurologic: No focal deficits appreciated on examination. Face symmetric, muscle strength symmetric bilateral upper and lower extremities. Internal Medicine: Result - Labs CBC & Chem 7: 05/02/17 04:51 05/02/17 04:51 Labs: Short CBC 05/02/17 Range/Units 04:51 WBC 7.7 (4.3-11.1) K/mcL Hgb 11.2 L (11.5-15.4) g/dL Hct 35.4 (35.3-44.9) % Plt Count 380 (140-400) K/mcL Neutrophils # 6.2 (1.6-8.9) K/mcL BMP 05/02/17 04:51 Sodium 133 L Potassium 4.1 Chloride 91 L Carbon Dioxide 39 H BUN 21 Creatinine 0.61 Glucose 140 H Calcium 8.3 L - ABG Interpretation ABG results: PT/INR, D-dimer PT 12.4 Seconds (9.4-12.1) H 04/26/17 04:53 Consult Discharge Plan - Plan Referrals: Dion Whitman MD [Primary Care Provider] - <Kasi Armendariz P - Last Filed: 05/02/17 17:17> Date of Encounter: 05/02/17 - Constitutional Vitals: Temp Pulse Resp BP Pulse Ox 98.2 F 93 16 148/91 92 05/02/17 16:11 05/02/17 16:11 05/02/17 16:11 05/02/17 16:11 05/02/17 16:11 Internal Medicine: Result - Labs CBC & Chem 7: 05/02/17 04:51 05/02/17 04:51 Labs: Short CBC 05/02/17 Range/Units 04:51 WBC 7.7 (4.3-11.1) K/mcL Hgb 11.2 L (11.5-15.4) g/dL Hct 35.4 (35.3-44.9) % Plt Count 380 (140-400) K/mcL Neutrophils # 6.2 (1.6-8.9) K/mcL BMP 05/02/17 04:51 Sodium 133 L Potassium 4.1 Chloride 91 L Carbon Dioxide 39 H BUN 21 Creatinine 0.61 Glucose 140 H Calcium 8.3 L - ABG Interpretation ABG results: PT/INR, D-dimer PT 12.4 Seconds (9.4-12.1) H 04/26/17 04:53 - Attending Attestation I examined this patient and my medical decision-making was reviewed with the Resident Physician. I agree with the documented findings, disposition and treatment plan as described except to the extent set forth below. Appreciated cardiology consult/recommendations. Please see above in detail regarding coronary artery disease/positive troponin/ cardiac stress test
--- NOTE | 2017-05-02 12:36 | Cardiology Progress Note ---
Date of Encounter: 05/02/17 Time of Encounter: 12:00 Assessment and Plan (1) Elevated troponin Current Visit: Yes Status: Acute Initial troponin 0.06 (first report was 8, however, lab re-ran test, and it was a faulty measurement), second set 0.03. This is likely demand ischemia secondary to sepsis and hypoxia. EKG shows ST with no acute ST changes. TTE shows preserved EF, no WMA. Denies chest pain or history of CAD. Cardiac risk factors include tobacco use, HTN, HLD. She reports father had DC at 57 years old. Stress test initially recommended but unable to complete due to hypoxia. No strong indication for LHC at this point. SOB likely due to COPD. Patient does have multiple cardiac risk factors and is planning for surgery on her ankle with Dr. Mora. She has decreased activity tolerance due to SOB. Recommend completing stress test. Plan for stress portion of stress test tomorrow. Patient agrees with plan. Discussion w patient/family: The assessment and plan as outlined above was discussed with the patient and/or family members who expressed understanding and agreement. All questions were answered. Thank you for involving us in the care of your patient. Please call with any questions. Subjective Principal diagnosis: Acute respiratory failure with hypoxia/PNA Interval history: Patient requesting to have heart cath now that she is breathing better so cardiology was re-consulted. She presented initially for left ankle fracture. She was found to be hypoxic on admission with spo2 in the 70's. She had mild troponin elevation at 0.06 then 0.03. Stress test was recommended last week for mild troponin and cardiac risk factors. She denies chest pain. Stress test was cancelled secondary to hypoxia. Recommended to be completed at later time when recovered from PNA/COPD. Objective Vital Signs, Last 4 Hours Temp Pulse Resp BP Pulse Ox 05/02/17 11:52 98 F 98 16 147/91 93 05/02/17 11:19 18 95 General: Conversant, No Apparent Distress HEENT: Atraumatic, Normocephaly, Mucus Membranes Moist Neck: No JVD, Normal carotid pulses Cardiac: Reg Rate and Rhythm, Normal S1 and S2, No Murmur Lungs: Other (Respirations appear to be labored on my exam with conversation. Lung sounds reduced. ) Neuro: Alert and responsive, No focal deficits noted Abdomen: Soft, Non-Tender Skin: No rashes noted on visualized skin Musculoskeletal: No Chest Wall Tenderness Extremities: No Clubbing, No Cyanosis, No Edema, Normal Pulses Results 05/02/17 04:51 05/02/17 04:51 Lab Results 05/02/17 05/02/17 04:51 04:51 WBC 7.7 Hgb 11.2 L Hct 35.4 Plt Count 380 Sodium 133 L Potassium 4.1 Chloride 91 L Carbon Dioxide 39 H BUN 21 Creatinine 0.61 Glucose 140 H Calcium 8.3 L - Imaging and Cardiology Stress Test: report reviewed (resting images reviewed) - EKG Interpretation EKG results cardiology: personally reviewed (ST HR 118, no acute ST changes) Consult Discharge Plan - Plan Referrals: Dion Whitman MD [Primary Care Provider] -
[2017-05-03] MEDS: ALPRAZolam 0.25 MG TABLET PO PRN (00:15)
[2017-05-03] MEDS: Ipratropium/Albuterol Neb 3 ML IH SCH ×4 (00:20→11:14)
[2017-05-03] MEDS: *HR* Enoxaparin 40 MG/0.4 ML SYRINGE SQ SCH (05:09)
[2017-05-03] MEDS ORDERED: Regadenoson 0.4 MG/5 ML SYRINGE IVP ONE (06:42)
[2017-05-03] MEDS: Budesonide/Formoterol 160/4.5 MDI IH SCH (07:36)
[2017-05-03 07:46] VITALS: BP 146/89
[2017-05-03] MEDS: Aspirin 81 MG TAB.CHEW PO SCH (09:31)
[2017-05-03] MEDS: predniSONE 20 MG TABLET PO SCH (09:31)
[2017-05-03] MEDS: Metoprolol XL (24 HR) Succ 50 MG TAB.ER.24H PO SCH (09:32)
--- NOTE | 2017-05-03 11:15 | Discharge Summary ---
<Geo Mcfarland - Last Filed: 05/03/17 15:16> Date of Encounter: 05/03/17 Time of Encounter: 09:00 - Discharge Diagnosis (1) Acute hypercapnic respiratory failure Priority: Primary Status: Resolved (2) COPD with exacerbation Priority: Primary Status: Acute (3) HTN (hypertension) Priority: Primary Status: Chronic Qualifiers: Hypertension type: essential hypertension Qualified Code(s): I10 - Essential (primary) hypertension (4) SANJUANA (obstructive sleep apnea) Priority: Secondary Status: Chronic (5) Pneumonia Priority: Primary Status: Acute Qualifiers: Pneumonia type: due to unspecified organism Laterality: unspecified laterality Lung location: unspecified part of lung Qualified Code(s): J18.9 - Pneumonia, unspecified organism (6) Ankle fracture, right Priority: Secondary Status: Acute Qualifiers: Encounter type: subsequent encounter Fracture type: closed Fracture healing: with routine healing Qualified Code(s): S82.891D - Other fracture of right lower leg, subsequent encounter for closed fracture with routine healing (7) Obesity (BMI 30.0-34.9) Priority: Secondary Status: Acute (8) Elevated troponin Priority: Primary Status: Acute (9) DVT prophylaxis Priority: Secondary Status: Acute - Discharge Medications Prescriptions: predniSONE [PredniSONE] 40 mg PO DAILY 2 Days #4 tablet Home Medications: Ipratropium/Albuterol Neb [Duoneb] 3 ml IH QID PRN 08/12/15 [History] Omeprazole [PriLOSEC] 20 mg PO DAILY 08/12/15 [History] Aspirin 81 mg PO DAILY tab.chew 04/06/16 [Rx] Atorvastatin [Lipitor] 40 mg PO HS 01/26/17 [History] Metoprolol Succinate 100 mg PO DAILY 01/26/17 [History] Losartan [Cozaar] 100 mg PO DAILY tablet 02/01/17 [Rx] Magnesium Oxide [Mag-Ox] 400 mg PO BID tablet 02/01/17 [Rx] Potassium Chloride 10 meq PO DAILY #30 tab.er.prt 02/16/17 [Rx] ALPRAZolam [Xanax 0.25 MG Tablet] 0.25 mg PO Q8HR PRN #15 tablet 03/01/17 [Rx] Ibuprofen [Motrin] 600 mg PO Q6HR PRN 7 Days #28 tab 04/24/17 [Rx] OxyCODONE Immed Rel [Roxicodone 5 MG] 5 mg PO Q6HR PRN 7 Days #28 tablet [Rx] Ergocalciferol (VITAMIN D2) [Drisdol (50,000 Unit)] 50,000 unit PO ADLER 04/25/17 [ History] Escitalopram [Lexapro] 10 mg PO DAILY 04/25/17 [History] HYDROcodone/Acet 5/325 mg [[place] 5-325 mg] 1 tab PO Q6H PRN 04/25/17 [History] Theophylline Anhydrous [Theophylline] 200 mg PO DAILY 04/25/17 [History] Tiotropium [Spiriva] 1 puff IH DAILY 04/25/17 [History] Bumetanide 0.5 mg PO DAILY 04/27/17 [History] Docusate [Colace] 100 mg PO BID 04/27/17 [History] predniSONE [PredniSONE] 40 mg PO DAILY 2 Days #4 tablet 05/03/17 [Rx] Allergies/Adverse Reactions: 3 Allergy/AdvReac Type Severity Reaction Status Date / Time No Known Allergies Allergy Verified 04/25/17 11:29 Date of admission: 04/25/17 14:42 Primary care physician: Dion Whitman MD Consults: 04/25/17 15:15 Consult to Cardiology [CONS] Routine Comment: Consulting Provider: Cardiology Ai Reason for Consult: Elevatd troponin 8, hypoxia, sepsis Call Completed: Yes 04/26/17 14:36 Consult to Respiratory Therapy [CONS] Routine Reason for Consult: chronic resp fail Call Completed: Yes Discharging clinician: Geo Mcfarland Anticipated date of discharge: 05/03/17 - Patient Status Disposition: Home Health Service Condition: Fair Functional capacity at discharge: independent ambulation Overall status at discharge: patient is progressing back to baseline - Discharge Instructions Instructions: Prednisone (By mouth), Myocardial Infarction (DC), Ankle Fracture (DC), Chronic Obstructive Pulmonary Disease (DC), Sepsis (DC), Chronic Hypertension (DC), Patellar Fracture (DC), Pneumonia (DC), Sleep Apnea Syndrome , [employer] (GEN), Elbow Fracture in Adults, [employer] (GEN) Follow Up With: Dion Whitman MD [Primary Care Provider] - 05/10/17 3:00 pm Raúl Phan CNP [Advanced Practice Nurse] - 05/30/17 3:30 pm Additional Instructions: 1. Follow-up with your primary care provider in the next 3-5 days 2. Follow-up with cardiology in the next week to discuss stress test. 3. Take all prescriptions as prescribed, any concerns or questions contact her primary care provider. 4. Return to the emergency department if: Worsening respiration status, chest pain, chest pressure, nausea vomiting or any other concerning medical signs or symptoms. - Diet and Activity Activity: increase activity as tolerated Diet: low fat, low cholesterol, low salt diet Interval History: Ms. Cook is a 66 year old female with medical history of advanced emphysema and COPD, with previous intubation, not on home oxygen, hypertension, coronary artery disease presented to the hospital for a scheduled orthopedic intervention and in her preoperative evaluation for surgery, she was found to be tachycardic and hypoxic with oxygen saturation in the 70s. She was sent to the emergency department where she was evaluated placed on BiPAP at 50%, started on heparin empirically for suspected pulmonary embolism. EKG shows sinus tachycardia. Angiogram of the chest shows no pulmonary embolism, but shows severe emphysema with bilateral pneumonia. She was started on Broad spectrum antibiotics and admitted to the general medical unit and placed on telemetry. She was seen by cardiology who recommended stress test. She underwent part of a stress test but was unable to complete do to her respiratory status. What was read from the stress test that was done was Resting pictures demonstrate a mild intensity inferior wall and apical perfusion defect. She remained chest pain free through her inpatient stay. She was on bronchodilators, broad spectrum antibiotics and IV steroids with difficult weaning down her oxygen requirements. She continued to have SOB. Respiratory status began to improve around 04/30/2017 and cardiology was asked to re-evaluate for elevated troponins done at admission. She was unable to complete a stress test do to physical limitation of her broken left upper extremity and Cardiology recommended outpatient follow up after her orthopedic intervention. She was seen and evaluated on 05/03/2017 and deemed stable for discharge home with a script for 2 days PO Prednisone, follow up with her PCP in the next 3-5 days and follow up with cardiology. Ms. Cook was agreeable with this plan. Hospital course: Ms. Cook is a 66 year old female - Time Spent with Patient Total time spent providing and/or coordinating discharge services: - Constitutional Vitals: Temp Pulse Resp BP Pulse Ox 98 F 87 18 146/89 97 05/03/17 00:00 05/03/17 07:00 05/03/17 07:36 05/03/17 07:00 05/03/17 07:36 General appearance: Present: cooperative, A&O X 3, pleasant, no acute distress, obese, answers questions appropriately Exam: General: Patient alert, awake, oriented 3, interactive, in no acute distress HEENT: Normocephalic, atraumatic, pupils equal reactive to light, nasal cavity patent and open septum median position, oral mucosa moist, uvula midline, neck supple trachea midline no palpable lymphadenopathy, no thyromegaly. Chest: Symmetric bilateral correlating with respiratory effort, effort nonlabored. Cardiac: Regular rate and rhythm, positive S1 and S2. no bruits appreciated bilateral carotids, Radial pulses 2+ bilateral, posterior tibial and dorsal pedal pulses 2+ bilateral. Respiratory: CTABL Abdomen: Soft, nontender, positive bowel sounds, no palpable masses appreciated on examination Extremities: Symmetric bilateral, bilateral lower extremities without erythema or edema patient moving all 4 extremities spontaneously. Neurologic: No focal deficits appreciated on examination. Face symmetric, muscle strength symmetric bilateral upper and lower extremities. - VTE Documentation of Mechanical Device: Intermittent pneumatic compression device <Kasi Armendariz P - Last Filed: 05/03/17 16:19> Date of Encounter: 05/03/17 Date of admission: 04/25/17 14:42 Primary care physician: Dion Whitman MD Consults: 04/25/17 15:15 Consult to Cardiology [CONS] Routine Comment: Consulting Provider: Cardiology [place] Reason for Consult: Elevatd troponin 8, hypoxia, sepsis Call Completed: Yes 04/26/17 14:36 Consult to Respiratory Therapy [CONS] Routine Reason for Consult: chronic resp fail Call Completed: Yes Hospital course: Ms. Cook is a 66 year old female - Time Spent with Patient Total time spent providing and/or coordinating discharge services: - Constitutional Vitals: Temp Pulse Resp BP Pulse Ox 98 F 87 18 146/89 93 05/03/17 00:00 05/03/17 07:00 05/03/17 11:14 05/03/17 07:00 05/03/17 11:14 - Attending Attestation I examined this patient and my medical decision-making was reviewed with the Resident Physician. I agree with the documented findings, disposition and treatment plan as described except to the extent set forth below.
--- NOTE | 2017-05-03 11:21 | Physician Discharge Referral ---
<KarlashliGeo willingham - Last Filed: 05/03/17 11:19> Home Health/Hosp Referral Info Transfer to: Home Health Provider in Charge Post Discharge: PCP - Diagnosis (1) Acute hypercapnic respiratory failure Priority: Primary Status: Resolved (2) COPD with exacerbation Priority: Primary Status: Acute (3) HTN (hypertension) Priority: Secondary Status: Chronic (4) SANJUANA (obstructive sleep apnea) Priority: Secondary Status: Chronic (5) Pneumonia Priority: Primary Status: Acute (6) Ankle fracture, right Priority: Secondary Status: Acute (7) Obesity (BMI 30.0-34.9) Priority: Secondary Status: Acute (8) Elevated troponin Priority: Primary Status: Acute (9) DVT prophylaxis Priority: Secondary Status: Acute - Respiratory Orders Smoking Cessation: Smoking cessation has been advised. For more information, call the [employer] Quit Line at 4-821-PTPL-NOW. - Diet/Nutrition Diet/Nutrition Orders: Cardiac - Activity Activity: List: patient has multiple broken bones, ambulation with assisted devices + personal assist and non-weight bearing on fractured limbs. - Services Needed Following services are medically necessary services: Nursing, Home Health Aide, Physical Therapy, Occupational Therapy - Transfer Medications Prescriptions: predniSONE [PredniSONE] 40 mg PO DAILY 2 Days #4 tablet Home Medications: Ipratropium/Albuterol Neb [Duoneb] 3 ml IH QID PRN 08/12/15 [History] Omeprazole [PriLOSEC] 20 mg PO DAILY 08/12/15 [History] Aspirin 81 mg PO DAILY tab.chew 04/06/16 [Rx] Atorvastatin [Lipitor] 40 mg PO HS 01/26/17 [History] Metoprolol Succinate 100 mg PO DAILY 01/26/17 [History] Losartan [Cozaar] 100 mg PO DAILY tablet 02/01/17 [Rx] Magnesium Oxide [Mag-Ox] 400 mg PO BID tablet 02/01/17 [Rx] Potassium Chloride 10 meq PO DAILY #30 tab.er.prt 02/16/17 [Rx] ALPRAZolam [Xanax 0.25 MG Tablet] 0.25 mg PO Q8HR PRN #15 tablet 03/01/17 [Rx] Ibuprofen [Motrin] 600 mg PO Q6HR PRN 7 Days #28 tab 04/24/17 [Rx] OxyCODONE Immed Rel [Roxicodone 5 MG] 5 mg PO Q6HR PRN 7 Days #28 tablet [Rx] Ergocalciferol (VITAMIN D2) [Drisdol (50,000 Unit)] 50,000 unit PO ADLER 04/25/17 [ History] Escitalopram [Lexapro] 10 mg PO DAILY 04/25/17 [History] HYDROcodone/Acet 5/325 mg [[place] 5-325 mg] 1 tab PO Q6H PRN 04/25/17 [History] Theophylline Anhydrous [Theophylline] 200 mg PO DAILY 04/25/17 [History] Tiotropium [Spiriva] 1 puff IH DAILY 04/25/17 [History] Bumetanide 0.5 mg PO DAILY 04/27/17 [History] Docusate [Colace] 100 mg PO BID 04/27/17 [History] predniSONE [PredniSONE] 40 mg PO DAILY 2 Days #4 tablet 05/03/17 [Rx] Allergies/Adverse Reactions: 3 Allergy/AdvReac Type Severity Reaction Status Date / Time No Known Allergies Allergy Verified 04/25/17 11:29 Certification: Further, I certify that my clinical findings support that this patient is homebound (i.e. absences from home require considerable and taxing effort and are for medical reasons or buddhist services or infrequently or short duration when for other reasons) because: Homebound Reason: Patient requires assistance of a person or device to safely leave home, Severity of cardiac or pulmonary status limits activity tolerance Attestation: My signature below is to certify that this patient is under my care and that I, or nurse practitioner, or a physician's operator assistant i cementing working with me, has a face-to -face encounter with this patient. <Kasi Armendariz P - Last Filed: 05/03/17 16:19> - Respiratory Orders Smoking Cessation: Smoking cessation has been advised. For more information, call the [place] [employer] Quit Line at 5-725-WFIP-NOW. Certification: Further, I certify that my clinical findings support that this patient is homebound (i.e. absences from home require considerable and taxing effort and are for medical reasons or buddhist services or infrequently or short duration when for other reasons) because: Attestation: My signature below is to certify that this patient is under my care and that I, or nurse practitioner, or a physician's operator assistant i cementing working with me, has a face-to -face encounter with this patient.
--- NOTE | 2017-05-03 12:45 | Event Note ---
Date of Encounter: 05/03/17 Time of Encounter: 12:43 - Cardiology Event Note Patient unable to complete stress test due to inability to hold arm above her head. Declines staying to attempt stress echo. Patient would like to follow in out-pt setting to discuss so she does not miss appt with Dr. Mora. F/u will be made in 1-2 weeks to set-up out-pt stress test if indicated for pre-surgery evaluation.
== END 2017-05-03 13:36 | disposition home health service (06) | DRG 871 ==
LOC: EMEROO 11:49 → 2NENU 14:42 → SUATTDRO 14:42 → 2NENU 15:23
PROVIDERS: ADMIT Internal Medicine; ATTEND Internal Medicine

== ENCOUNTER 2017-06-23 09:43 | Inpatient (IN) ==
[~2017-06-23 09:43] MED LIST: *HR* Etomidate 40 MG/20 ML VIAL IVP ONE; *HR* Rocuronium Bromide 100 MG/10 ML VIAL IVC ONE
[2017-06-23] MEDS ORDERED: Ipratropium/Albuterol Neb 3 ML IH ONE (09:48)
[2017-06-23] MEDS ORDERED: methylPREDNISolone 125 MG/2 ML VIAL IVP ONE (09:49)
--- NOTE | 2017-06-23 09:51 | Emergency Department Note ---
Disposition Clinical Impression: COPD exacerbation, Hypoxia, Elevated troponin, Hypercapnia Dyspnea Qualifiers: Dyspnea type: unspecified Qualified Code(s): R06.00 - Dyspnea, unspecified Leukocytosis Qualifiers: Leukocytosis type: unspecified Qualified Code(s): D72.829 - Elevated white blood cell count, unspecified Pneumonia Qualifiers: Pneumonia type: due to unspecified organism Laterality: unspecified laterality Lung location: unspecified part of lung Qualified Code(s): J18.9 - Pneumonia, unspecified organism Disposition: Admitted As Inpatient Condition: Fair General Adult HPI - General Time Seen by Provider: 06/23/17 09:47 Nursing Notes Reviewed: Yes Vital Signs Reviewed: Yes - Related Data Home Medications Medication Instructions Recorded Confirmed Ipratropium/Albuterol Neb [Duoneb] 3 ml IH QID PRN 08/12/15 04/25/17 Omeprazole [PriLOSEC] 20 mg PO DAILY 08/12/15 04/25/17 Atorvastatin [Lipitor] 40 mg PO HS 01/26/17 04/25/17 Metoprolol Succinate 100 mg PO DAILY 01/26/17 04/25/17 Ergocalciferol (VITAMIN D2) 50,000 unit PO ADLER 04/25/17 04/25/17 [Drisdol (50,000 Unit)] Escitalopram [Lexapro] 10 mg PO DAILY 04/25/17 04/25/17 HYDROcodone/Acet 5/325 mg [[place] 1 tab PO Q6H PRN 04/25/17 04/25/17 5-325 mg] Theophylline Anhydrous 200 mg PO DAILY 04/25/17 04/25/17 [Theophylline] Tiotropium [Spiriva] 1 puff IH DAILY 04/25/17 04/25/17 Bumetanide 0.5 mg PO DAILY 04/27/17 04/27/17 Docusate [Colace] 100 mg PO BID 04/27/17 04/27/17 Previous Rx's Medication Instructions Recorded Aspirin 81 mg PO DAILY tab.chew 04/06/16 Losartan [Cozaar] 100 mg PO DAILY tablet 02/01/17 Magnesium Oxide [Mag-Ox] 400 mg PO BID tablet 02/01/17 Potassium Chloride 10 meq PO DAILY #30 tab.er.prt 02/16/17 ALPRAZolam [Xanax 0.25 MG Tablet] 0.25 mg PO Q8HR PRN #15 tablet 03/01/17 Ibuprofen [Motrin] 600 mg PO Q6HR PRN 7 Days #28 tab 04/24/17 OxyCODONE Immed Rel [Roxicodone 5 5 mg PO Q6HR PRN 7 Days #28 tablet 04/24/17 MG] predniSONE [PredniSONE] 40 mg PO DAILY 2 Days #4 tablet 05/03/17 Allergies Allergy/AdvReac Type Severity Reaction Status Date / Time No Known Allergies Allergy Verified 04/25/17 11:29 Past Medical History - Past Medical History Medical history: Reports: COPD, hypertension Surgical history: Reports: hysterectomy, orthopedic, other Psychiatric history: Reports: anxiety CHARGE ATTENDANT history: Reports: no CHARGE ATTENDANT history - Social History Smoking Status: Former smoker Smokeless Tobacco Status: No Alcohol use: Reports: none Drug use: Reports: none Course Vital Signs Temperature 97.9 F 06/23/17 09:45 Pulse Rate 134 06/23/17 09:45 Respiratory Rate 26 06/23/17 09:45 Blood Pressure 151/127 06/23/17 09:45 O2 Sat by Pulse Oximetry 87 06/23/17 09:45 Temperature 97.9 F 06/23/17 09:45 Pulse Rate 112 06/23/17 13:06 Respiratory Rate 20 06/23/17 13:06 Blood Pressure 128/68 06/23/17 13:06 O2 Sat by Pulse Oximetry 94 06/23/17 13:06 Oxygen Delivery Oxygen Delivery Bipap Medical Decision Making - MDM Narrative Medical decision making narrative: This documentation is done with the assistance of Dragon dictation. Despite efforts made to ensure accuracy, there may be inaccuracies in taxi driver supervisor or spelling and typographical errors. I examined this patient and my medical decision-making was reviewed with the Resident Physician. I agree with the documented findings, disposition and treatment plan as described except to the extent set forth below. Patient seen and evaluated by Dr. Batista and myself, I agree with his evaluation and management plan, supervised care the patient's stay. Patient presents with COPD exacerbation started last evening. She is on 2 L oxygen at home had one breathing treatment at home and medics give her another treatment here she is still having some wheezing is coughing a little bit more sats are 91%. She was on antibiotics recently and was recently hospitalized saw review that admission she does not which antibiotic she is on. Nebulas treatments are ordered chest x -ray and then reassessment. Chest X-Ray 06/23/17 09:48 IMPRESSION: Bilateral interstitial opacities in thickening of the minor fissure may reflect interstitial edema. D/ / Marshall Irwin MD / Marshall Irwin MD Interpreting Provider: Marshall Irwin MD 1100 hrs.: Patient's Wells criteria was low, she had a d-dimer performed which was elevated. She is getting a CT of her chest. She is having no chest pain at this time. But her troponin is +0.05. Repeating her EKG. Giving her a dose aspirin here. And then waiting on CTA she will need admission. Chest X-Ray 06/23/17 09:48 IMPRESSION: Bilateral interstitial opacities and thickening of the minor fissure may reflect interstitial edema. D/ / 06/23/2017 11:13:51 Marshall Irwin MD / ronit Interpreting Provider: Marshall Irwin MD Chest CTA 06/23/17 10:39 IMPRESSION: 1. No pulmonary embolism. 2. Improved aeration of multifocal airspace opacities described on the patient's prior CT. Residual reticular and nodular opacities would favor a chronic infectious or inflammatory process. Differential considerations would include resolving pneumonia, cryptogenic organizing pneumonia, eosinophilic pneumonia. 3. Moderate centrilobular emphysema. 4. Reactive mediastinal and right hilar lymph nodes. D/ / Clifton Jasso MD / Clifton Jasso MD Interpreting Provider: Clifton Jasso MD 1230 hrs.: Negative for PE, possible pneumonia. With her history were negative and treat her and admit her. She is in agreement with this plan. Her critical care time excluding separately billable procedures is 30 minutes. 1345 hrs.: Patient's continue to do decline on BiPAP and her PCO2 is going up and she is getting a little more sleepy. We spoke with hospitalist and they agreed to admit her in the ICU instead. We go ahead and do an elective intubation on her; patient's in agreement with that. PCO2 is going up over 100 from her previous gas. 1415 hrs.: Patient was intubated successfully by Dr. Batista under my supervision. Using a 7.5 ET tube placed through the cords under direct visualization after using sedation with etomidate and paralytic rocuronium. Patient tolerated this well. Her sats are in the mid 90s has fogging of the tube, confirmed with color change on end-tidal CO2 and chest x-ray. Hospitalist was here at the time and will admit to the ICU instead of 2 N. Impressions respiratory failure with COPD and emphysema with probable early pneumonia. - Lab Data Result diagrams: 06/23/17 10:08 06/23/17 10:08 Lab Results 06/23/17 06/23/17 06/23/17 Range/Units 10:08 10:08 10:08 WBC 20.6 H (4.3-11.1) K/mcL RBC 4.68 (3.82-4.97) M/mcL Hgb 13.8 (11.5-15.4) g/dL Hct 44.3 (35.3-44.9) % MCV 94.7 (83.0-100.0) fL MCH 29.5 (28.0-33.3) pg MCHC 31.2 L (31.6-35.5) g/dL RDW 14.6 H (11.5-14.5) % Plt Count 437 H (140-400) K/mcL MPV 9.6 (9.4-12.4) fL Immature Gran % 0.7 (0-4) % Seg Neutrophils % 90.5 % Lymphocytes % 4.2 % Monocytes % 4.4 % Eosinophils % 0.0 % Basophils % 0.2 % Neutrophils # 18.7 H (1.6-8.9) K/mcL Lymphocytes # 0.9 (0.6-4.6) K/mcL Monocytes # 0.9 (0.0-1.3) K/mcL Eosinophils # 0.0 (0.0-0.6) K/mcL Basophils # 0.0 (0.0-0.2) K/mcL D-Dimer (0-500) ng/mLFEU ABG pH (7.32-7.45) pH Units ABG pCO2 (35-45) mmHg ABG pO2 (85-104) mmHg ABG HCO3 (21-27) mEq/L ABG Total CO2 (20-26) mEq/L ABG O2 Saturation (95-98) % ABG Base Excess (-2 to 3) mEq/L VBG pH (7.32-7.42) pH Units VBG pCO2 (41-51) mmHg VBG pO2 (25-50) mmHg VBG HCO3 (21-27) mEq/L O2 Delivery Device Inspired O2 (1-15=lpm [id number]=%) PEEP cm H2O Sodium 133 L (136-145) mEq/L Potassium 3.9 (3.5-5.1) mEq/L Chloride 92 L (98-107) mEq/L Carbon Dioxide 36 H (23-29) mEq/L BUN 10 (8-23) mg/dL Creatinine 0.52 L (0.60-1.20) mg/dL Est GFR ( Amer) > 60 (> 60) Est GFR (Non-Af Amer) > 60 (> 60) BUN/Creatinine Ratio 19 (6-26) Glucose 146 H (70-105) mg/dL Calculated Osmolality 278 L (280-300) Lactic Acid 1.1 (0.5-2.2) mmol/L Calcium 10.0 (8.6-10.3) mg/dL Troponin I 0.05 H* (< 0.04) ng/mL B-Natriuretic Peptide (Less than 100) pg/mL 06/23/17 06/23/17 06/23/17 Range/Units 10:08 10:12 10:24 WBC (4.3-11.1) K/mcL RBC (3.82-4.97) M/mcL Hgb (11.5-15.4) g/dL Hct (35.3-44.9) % MCV (83.0-100.0) fL MCH (28.0-33.3) pg MCHC (31.6-35.5) g/dL RDW (11.5-14.5) % Plt Count (140-400) K/mcL MPV (9.4-12.4) fL Immature Gran % (0-4) % Seg Neutrophils % % Lymphocytes % % Monocytes % % Eosinophils % % Basophils % % Neutrophils # (1.6-8.9) K/mcL Lymphocytes # (0.6-4.6) K/mcL Monocytes # (0.0-1.3) K/mcL Eosinophils # (0.0-0.6) K/mcL Basophils # (0.0-0.2) K/mcL D-Dimer 1254 H (0-500) ng/mLFEU ABG pH (7.32-7.45) pH Units ABG pCO2 (35-45) mmHg ABG pO2 (85-104) mmHg ABG HCO3 (21-27) mEq/L ABG Total CO2 (20-26) mEq/L ABG O2 Saturation (95-98) % ABG Base Excess (-2 to 3) mEq/L VBG pH 7.23 L (7.32-7.42) pH Units VBG pCO2 91 H* (41-51) mmHg VBG pO2 135 H (25-50) mmHg VBG HCO3 38 H (21-27) mEq/L O2 Delivery Device Inspired O2 (1-15=lpm [id number]=%) PEEP cm H2O Sodium (136-145) mEq/L Potassium (3.5-5.1) mEq/L Chloride (98-107) mEq/L Carbon Dioxide (23-29) mEq/L BUN (8-23) mg/dL Creatinine (0.60-1.20) mg/dL Est GFR ( Amer) (> 60) Est GFR (Non-Af Amer) (> 60) BUN/Creatinine Ratio (6-26) Glucose (70-105) mg/dL Calculated Osmolality (280-300) Lactic Acid (0.5-2.2) mmol/L Calcium (8.6-10.3) mg/dL Troponin I (< 0.04) ng/mL B-Natriuretic Peptide 103 H (Less than 100) pg/mL 06/23/17 Range/Units 13:27 WBC (4.3-11.1) K/mcL RBC (3.82-4.97) M/mcL Hgb (11.5-15.4) g/dL Hct (35.3-44.9) % MCV (83.0-100.0) fL MCH (28.0-33.3) pg MCHC (31.6-35.5) g/dL RDW (11.5-14.5) % Plt Count (140-400) K/mcL MPV (9.4-12.4) fL Immature Gran % (0-4) % Seg Neutrophils % % Lymphocytes % % Monocytes % % Eosinophils % % Basophils % % Neutrophils # (1.6-8.9) K/mcL Lymphocytes # (0.6-4.6) K/mcL Monocytes # (0.0-1.3) K/mcL Eosinophils # (0.0-0.6) K/mcL Basophils # (0.0-0.2) K/mcL D-Dimer (0-500) ng/mLFEU ABG pH 7.19 L* (7.32-7.45) pH Units ABG pCO2 110 H* (35-45) mmHg ABG pO2 83 L (85-104) mmHg ABG HCO3 42 H (21-27) mEq/L ABG Total CO2 45 H (20-26) mEq/L ABG O2 Saturation 92 L (95-98) % ABG Base Excess 9 H (-2 to 3) mEq/L VBG pH (7.32-7.42) pH Units VBG pCO2 (41-51) mmHg VBG pO2 (25-50) mmHg VBG HCO3 (21-27) mEq/L O2 Delivery Device BiPAP Inspired O2 45.0 (1-15=lpm [id number]=%) PEEP 7 cm H2O Sodium (136-145) mEq/L Potassium (3.5-5.1) mEq/L Chloride (98-107) mEq/L Carbon Dioxide (23-29) mEq/L BUN (8-23) mg/dL Creatinine (0.60-1.20) mg/dL Est GFR ( Amer) (> 60) Est GFR (Non-Af Amer) (> 60) BUN/Creatinine Ratio (6-26) Glucose (70-105) mg/dL Calculated Osmolality (280-300) Lactic Acid (0.5-2.2) mmol/L Calcium (8.6-10.3) mg/dL Troponin I (< 0.04) ng/mL B-Natriuretic Peptide (Less than 100) pg/mL Critical Care Time Critical Care Time: Yes Total Critical Care Time: 30 Attestation: Excluding any separately billable procedures
--- NOTE | 2017-06-23 09:56 | Emergency Department Note ---
Disposition Clinical Impression: COPD exacerbation, Hypoxia, Elevated troponin, Hypercapnia Dyspnea Qualifiers: Dyspnea type: unspecified Qualified Code(s): R06.00 - Dyspnea, unspecified Leukocytosis Qualifiers: Leukocytosis type: unspecified Qualified Code(s): D72.829 - Elevated white blood cell count, unspecified Pneumonia Qualifiers: Pneumonia type: due to unspecified organism Laterality: unspecified laterality Lung location: unspecified part of lung Qualified Code(s): J18.9 - Pneumonia, unspecified organism Disposition: Admitted As Inpatient Condition: Fair Referrals: Dion Whitman MD [Primary Care Provider] - Time of Disposition: 12:26 SOB HPI - General Chief Complaint: UC Shortness of Breath Stated Complaint: dyspnea Time Seen by Provider: 06/23/17 09:47 Source: patient, EMS Mode of arrival: EMS Limitations: no limitations Nursing Notes Reviewed: Yes Vital Signs Reviewed: Yes - History of Present Illness Patient is a 66-year-old female with past medical history of COPD, recent pneumonia within the past few weeks that required hospitalization and BiPAP, hypertension, diabetes. She presents today due to increased shortness of breath , productive cough over the past 2-3 days. She has also had subjective fever. Denies any overt chest pain, nausea, vomiting, abdominal pain, diarrhea, hematuria, dysuria, hemoptysis. She is currently on 2 L nasal cannula oxygen at home, uses daily albuterol and Advair, spray the. Is not currently on any daily prednisone or antibiotics at this time. She does note right lower showed a swelling to states that this is chronic from a previous fracture. Denies any calf pain or redness. - Related Data Home Medications Medication Instructions Recorded Confirmed Ipratropium/Albuterol Neb [Duoneb] 3 ml IH QID PRN 08/12/15 04/25/17 Omeprazole [PriLOSEC] 20 mg PO DAILY 08/12/15 04/25/17 Atorvastatin [Lipitor] 40 mg PO HS 01/26/17 04/25/17 Metoprolol Succinate 100 mg PO DAILY 01/26/17 04/25/17 Ergocalciferol (VITAMIN D2) 50,000 unit PO ADLER 04/25/17 04/25/17 [Drisdol (50,000 Unit)] Escitalopram [Lexapro] 10 mg PO DAILY 04/25/17 04/25/17 HYDROcodone/Acet 5/325 mg [[place] 1 tab PO Q6H PRN 04/25/17 04/25/17 5-325 mg] Theophylline Anhydrous 200 mg PO DAILY 04/25/17 04/25/17 [Theophylline] Tiotropium [Spiriva] 1 puff IH DAILY 04/25/17 04/25/17 Bumetanide 0.5 mg PO DAILY 04/27/17 04/27/17 Docusate [Colace] 100 mg PO BID 04/27/17 04/27/17 Previous Rx's Medication Instructions Recorded Aspirin 81 mg PO DAILY tab.chew 04/06/16 Losartan [Cozaar] 100 mg PO DAILY tablet 02/01/17 Magnesium Oxide [Mag-Ox] 400 mg PO BID tablet 02/01/17 Potassium Chloride 10 meq PO DAILY #30 tab.er.prt 02/16/17 ALPRAZolam [Xanax 0.25 MG Tablet] 0.25 mg PO Q8HR PRN #15 tablet 03/01/17 Ibuprofen [Motrin] 600 mg PO Q6HR PRN 7 Days #28 tab 04/24/17 OxyCODONE Immed Rel [Roxicodone 5 5 mg PO Q6HR PRN 7 Days #28 tablet 04/24/17 MG] predniSONE [PredniSONE] 40 mg PO DAILY 2 Days #4 tablet 05/03/17 Allergies Allergy/AdvReac Type Severity Reaction Status Date / Time No Known Allergies Allergy Verified 04/25/17 11:29 All systems ED: reviewed and negative except as stated. Constitutional: Reports: fever Cardiovascular: Denies: chest pain, palpitations Respiratory: Reports: cough, dyspnea, sputum production. Denies: hemoptysis Gastrointestinal: Denies: abdominal pain, nausea, vomiting, diarrhea, hematemesis Genitourinary: Denies: dysuria, frequency, hematuria Integumentary: Denies: rash Neurological: Reports: headache. Denies: weakness, numbness, paresthesias Past Medical History - Past Medical History Attestation: Yes The following information was validated with the patient. Source: patient Medical history: Reports: COPD, hypertension Surgical history: Reports: hysterectomy, orthopedic, other Psychiatric history: Reports: anxiety PROCUREMENT TECHNICIAN history: Reports: no PROCUREMENT TECHNICIAN history - Social History Smoking Status: Former smoker Smokeless Tobacco Status: No Alcohol use: Reports: none Drug use: Reports: none Physical Exam - General Limitations: no limitations General appearance: alert, other (Able to speak a few words at a time due to dyspnea, pursed lip breathing on exam, using accessory muscles.) - Head Head exam: atraumatic, normocephalic, normal inspection - Eye Eye exam: Present: normal appearance, PERRL, EOMI - ENT ENT exam: normal exam, normal oropharynx, mucous membranes moist - Neck Neck exam: Present: normal inspection, full ROM, trachea midline - Chest Chest inspection: Present: normal inspection, symmetric chest wall rise - Respiratory Respiratory exam: Present: other (Diminished throughout with wheezing in all lung cotter) - Cardiovascular Cardiovascular exam: Present: regular rate, normal rhythm, normal heart sounds - Abdominal Exam Abdominal exam: Present: soft, Non-Tender. Absent: tenderness, distention, guarding, rebound, rigidity - Extremities Exam Extremities exam: Present: normal inspection, full ROM, pedal edema (Mild edema of the right lower extremity but no redness, states is chronic from previous fracture). Absent: tenderness - Neurological Exam Neurological exam: Present: alert, oriented X3 - Expanded Neurological Exam Coma Scale Eye Opening: Spontaneous Coma Scale Motor Response: Obeys Commands Coma Scale Verbal Response: Oriented Coma Scale Total: 15 - Psychiatric Psychiatric exam: Present: normal affect, normal mood - Skin Skin exam: Present: warm, dry, intact, normal color Course Course Narrative: Patient was satting 87% on her usual 2 L nasal cannula oxygen she wears at home. She was conversationally dyspneic, using accessory muscles. Decreased lung sounds throughout with wheezes throughout. Otherwise, tachycardic and regular rhythm, abdomen soft and benign. She did some mild right lower extremity swelling that she states is chronic from her previous fracture. I discussed BiPAP with the patient and she had increased work of breathing. She was agreeable with this plan and states that she has had to be on BiPAP in the past. We will give the patient Solu-Medrol, DuoNeb 3, will perform basic workup with chest x-ray, EKG, basic blood work and troponin. Patient will have to be admitted for increased oxygen requirement, COPD exacerbation. 10:45 Patient tolerating BIPAP well, O2 now 97%, doing better after . Elevated D dimer in 1200s. WIll perform CTA for PE assessment. 12:25 patient's leukocytosis, mildly elevated troponin 0.05 but no chest pain currently. CTA was negative PE but shows nodules and opacities that could represent new or chronic infection. Started on vancomycin and Zosyn. We will admit to the hospitalist for COPD exacerbation, hypoxia, elevated troponin, pneumonia. Vital Signs Temperature 97.9 F 06/23/17 09:45 Pulse Rate 134 06/23/17 09:45 Respiratory Rate 26 06/23/17 09:45 Blood Pressure 151/127 06/23/17 09:45 O2 Sat by Pulse Oximetry 87 06/23/17 09:45 Temperature 97.9 F 06/23/17 09:45 Pulse Rate 124 06/23/17 11:54 Respiratory Rate 28 06/23/17 11:54 Blood Pressure 192/95 06/23/17 11:54 O2 Sat by Pulse Oximetry 97 06/23/17 11:54 Oxygen Delivery Oxygen Delivery Simple Mask Shortness of Breath/Dyspnea - MDM Narrative Medical decision making narrative: Patient was satting 87% on her usual 2 L nasal cannula oxygen she wears at home. She was conversationally dyspneic, using accessory muscles. Decreased lung sounds throughout with wheezes throughout. Otherwise, tachycardic and regular rhythm, abdomen soft and benign. She did some mild right lower extremity swelling that she states is chronic from her previous fracture. I discussed BiPAP with the patient and she had increased work of breathing. She was agreeable with this plan and states that she has had to be on BiPAP in the past. We will give the patient Solu-Medrol, DuoNeb 3, will perform basic workup with chest x-ray, EKG, basic blood work and troponin. Patient will have to be admitted for increased oxygen requirement, COPD exacerbation. 10:45 Patient tolerating BIPAP well, O2 now 97%, doing better after . Elevated D dimer in 1200s. WIll perform CTA for PE assessment. 12:25 patient's leukocytosis, mildly elevated troponin 0.05 but no chest pain currently. CTA was negative PE but shows nodules and opacities that could represent new or chronic infection. Started on vancomycin and Zosyn. We will admit to the hospitalist for COPD exacerbation, hypoxia, elevated troponin, pneumonia. - Medical Records Medical records reviewed: Yes I reviewed the patient's medical records. - Lab Data Lab results reviewed: Yes I reviewed the patient's lab results. Result diagrams: 06/23/17 10:08 06/23/17 10:08 Lab Results 06/23/17 06/23/17 06/23/17 Range/Units 10:08 10:08 10:08 WBC 20.6 H (4.3-11.1) K/mcL RBC 4.68 (3.82-4.97) M/mcL Hgb 13.8 (11.5-15.4) g/dL Hct 44.3 (35.3-44.9) % MCV 94.7 (83.0-100.0) fL MCH 29.5 (28.0-33.3) pg MCHC 31.2 L (31.6-35.5) g/dL RDW 14.6 H (11.5-14.5) % Plt Count 437 H (140-400) K/mcL MPV 9.6 (9.4-12.4) fL Immature Gran % 0.7 (0-4) % Seg Neutrophils % 90.5 % Lymphocytes % 4.2 % Monocytes % 4.4 % Eosinophils % 0.0 % Basophils % 0.2 % Neutrophils # 18.7 H (1.6-8.9) K/mcL Lymphocytes # 0.9 (0.6-4.6) K/mcL Monocytes # 0.9 (0.0-1.3) K/mcL Eosinophils # 0.0 (0.0-0.6) K/mcL Basophils # 0.0 (0.0-0.2) K/mcL D-Dimer (0-500) ng/mLFEU VBG pH (7.32-7.42) pH Units VBG pCO2 (41-51) mmHg VBG pO2 (25-50) mmHg VBG HCO3 (21-27) mEq/L Sodium 133 L (136-145) mEq/L Potassium 3.9 (3.5-5.1) mEq/L Chloride 92 L (98-107) mEq/L Carbon Dioxide 36 H (23-29) mEq/L BUN 10 (8-23) mg/dL Creatinine 0.52 L (0.60-1.20) mg/dL Est GFR ( Amer) > 60 (> 60) Est GFR (Non-Af Amer) > 60 (> 60) BUN/Creatinine Ratio 19 (6-26) Glucose 146 H (70-105) mg/dL Calculated Osmolality 278 L (280-300) Lactic Acid 1.1 (0.5-2.2) mmol/L Calcium 10.0 (8.6-10.3) mg/dL Troponin I 0.05 H* (< 0.04) ng/mL B-Natriuretic Peptide (Less than 100) pg/mL 06/23/17 06/23/17 06/23/17 Range/Units 10:08 10:12 10:24 WBC (4.3-11.1) K/mcL RBC (3.82-4.97) M/mcL Hgb (11.5-15.4) g/dL Hct (35.3-44.9) % MCV (83.0-100.0) fL MCH (28.0-33.3) pg MCHC (31.6-35.5) g/dL RDW (11.5-14.5) % Plt Count (140-400) K/mcL MPV (9.4-12.4) fL Immature Gran % (0-4) % Seg Neutrophils % % Lymphocytes % % Monocytes % % Eosinophils % % Basophils % % Neutrophils # (1.6-8.9) K/mcL Lymphocytes # (0.6-4.6) K/mcL Monocytes # (0.0-1.3) K/mcL Eosinophils # (0.0-0.6) K/mcL Basophils # (0.0-0.2) K/mcL D-Dimer 1254 H (0-500) ng/mLFEU VBG pH 7.23 L (7.32-7.42) pH Units VBG pCO2 91 H* (41-51) mmHg VBG pO2 135 H (25-50) mmHg VBG HCO3 38 H (21-27) mEq/L Sodium (136-145) mEq/L Potassium (3.5-5.1) mEq/L Chloride (98-107) mEq/L Carbon Dioxide (23-29) mEq/L BUN (8-23) mg/dL Creatinine (0.60-1.20) mg/dL Est GFR ( Amer) (> 60) Est GFR (Non-Af Amer) (> 60) BUN/Creatinine Ratio (6-26) Glucose (70-105) mg/dL Calculated Osmolality (280-300) Lactic Acid (0.5-2.2) mmol/L Calcium (8.6-10.3) mg/dL Troponin I (< 0.04) ng/mL B-Natriuretic Peptide 103 H (Less than 100) pg/mL - Radiology Data Radiology results reviewed: Yes I reviewed the patient's radiology results. Chest X-Ray 06/23/17 09:48 IMPRESSION: Bilateral interstitial opacities and thickening of the minor fissure may reflect interstitial edema. D/ / 06/23/2017 11:13:51 Marshall Irwin MD / ronit Interpreting Provider: Marshall Irwin MD Chest CTA 06/23/17 10:39 IMPRESSION: 1. No pulmonary embolism. 2. Improved aeration of multifocal airspace opacities described on the patient's prior CT. Residual reticular and nodular opacities would favor a chronic infectious or inflammatory process. Differential considerations would include resolving pneumonia, cryptogenic organizing pneumonia, eosinophilic pneumonia. 3. Moderate centrilobular emphysema. 4. Reactive mediastinal and right hilar lymph nodes. D/ / Clifton Jasso MD / Clifton Jasso MD Interpreting Provider: Clifton Jasso MD - EKG Data EKG attestation: Yes I reviewed and interpreted this EKG. EKG results narrative: 06/23/2017 at 10:02. Sinus tachycardia. Rate 134. SC 138. QRS 82. QTC 367. Normal axis. No acute ST elevation or depression. EKG #2 06/23/17 at 11:05. Sinus tach. Rate 119. SC 145. QRS 84. QTC 377. Normal axis. No acute ST changes. S.B.A.R. - S.B.A.R. Situation: Demographics, MOA Background: Presenting Complaint, Relevant PMH, Meds, & Allergies Assessment: Vital Signs, Course and respsone to treatment, Exam Concerns, Patient/Family Expectation, Pertinant Lab Results Recommendation: Barrier(s) to disposition, Recommendation based on pending studies, treatments, or consults S.B.A.R. Report Given to: Dr. Humble Quinn Repor Time: 12:26
[2017-06-23 10:25] LABS: Basophils % 0.2 %; Hematocrit 44.3 % (35.3-44.9); Hemoglobin 13.8 g/dL (11.5-15.4); Immature Granulocytes % 0.7 % (0-4); Lymphocytes # 0.9 K/mcL (0.6-4.6); Lymphocytes % 4.2 %; Mean Corpuscular HGB Conc 31.2 g/dL (31.6-35.5); Mean Corpuscular Hemoglobin 29.5 pg (28.0-33.3); Mean Corpuscular Volume 94.7 fL (83.0-100.0); Mean Platelet Volume 9.6 fL (9.4-12.4); Monocytes # 0.9 K/mcL (0.0-1.3); Monocytes % 4.4 %; Neutrophils # 18.7 K/mcL (1.6-8.9); Platelet Count 437 K/mcL (140-400); Red Blood Count 4.68 M/mcL (3.82-4.97); Red Cell Distribution Width 14.6 % (11.5-14.5); Segmented Neutrophils % 90.5 %
[2017-06-23 10:28] LABS: VBG HCO3 38 mEq/L (21-27); VBG PCO2 91 mmHg (41-51); VBG PH 7.23 pH Units (7.32-7.42); VBG PO2 135 mmHg (25-50)
[2017-06-23 10:52] LABS: BUN/Creatinine Ratio 19 (6-26); Blood Urea Nitrogen 10 mg/dL (8-23); Carbon Dioxide 36 mEq/L (23-29); Chloride 92 mEq/L (98-107); Glucose 146 mg/dL (70-105); Osmolality,Calculated 278 (280-300); Potassium 3.9 mEq/L (3.5-5.1); Sodium 133 mEq/L (136-145); eGFR For African Americans > 60 (> 60); eGFR For Non-African Americans > 60 (> 60)
[2017-06-23 11:00] LABS: Troponin I 0.05 ng/mL (< 0.04)
[2017-06-23] MEDS ORDERED: Aspirin 81 MG TAB.CHEW PO STA (11:01)
[2017-06-23] MEDS ORDERED: Piperacillin/Tazobactam 3.375 GM in 0.9 % Sodium Chloride Mini Bag 100 ML IVPB ONE (12:15)
[2017-06-23] MEDS ORDERED: Albuterol 2.5 MG/3 ML NEBULIZER IH PRN (12:44)
[2017-06-23] MEDS ORDERED: Ibuprofen 600 MG TABLET PO PRN (12:45)
[2017-06-23] MEDS ORDERED: *HR* HYDROcodone/Acet 5/325 mg TABLET PO PRN (12:45)
[2017-06-23] MEDS ORDERED: Naloxone 0.4 MG/ML INJ IVP PRN (12:47)
--- NOTE | 2017-06-23 13:17 | Internal Med History&Physical ---
<Diony Murguia - Last Filed: 06/23/17 15:07> Date of Encounter: 06/23/17 Time of Encounter: 13:13 Assessment and Plan (1) Pneumonia Current visit: Yes Status: Acute She presents today with a 6-day h/o progressive dyspnea, and cough with thick green/yellow sputum, as well as fevers, chills, and fatigue. She has a h/o chronic respiratory failure, COPD, and is a long-term daily 1PPD smoker for approximately 50 years. She was recently tx at [facility] for PNA. Imaging at that time found chronic inflammatory changes and multifocal PNA. Todays CTA negative for PE, and shows improving multifocal consolidations and chronic inflammatory changes. Upon my assessment the patient was hypersomnolent and responsive only to painful stimuli. She remains on BiPap. Lungs are diminished throughout with rhonchi in the left lower lobe. D/t declining condition I have asked that the patient remain in the ED until an additional ABG has been obtained as given her presentation I have a very low threshold to intubate. I have spoken with the family who states that her Mother has insisted on being a Full code and all in attendance are in agreement for intubation if needed. QSOFA 2, GCS 3. Follow-up ABG has worsened since being placed on BiPAP with a pH of 7.19, PCO2 of 110, PO2 of 83, and HCO3 of 42. The patient will need intubation and sent to the ICU for closer monitoring. I have spoken with the ED physician of follow -up ABG results and they are in agreement with plan of care - Blood Cx - Urine Legionella antigen and strep pneumonia antigen, mycoplasma antigen - Antibiotics-Levaquin - CBCD, CMP in AM - Ibuprofen hr PRN pain or fever, continue [place] 5/325 every 6 when necessary for moderate pain - Resume home medications once med rec complete - Heparin 5000 U SQ BID for DVT prophylaxis - Continuous SPO2 continuous telemetry - Sputum cultures - Scheduled Duonebs, Albuterol PRN and IV steroids - CBCD, BMP in the am - Lactic Acid 1.1 - Initial Troponin 0.05 per workup. Prior h/o CT, No EKG ischemic changes, Trend troponins; likely demand ischemia, monitor for type-II CT - Recent TTE 04/19 shows a preserved EF and mild left ventricular diastolic dysfunction - Respiratory infection panel Qualifiers: Pneumonia type: due to unspecified organism Laterality: bilateral Lung location: unspecified part of lung Qualified Code(s): J18.9 - Pneumonia, unspecified organism (2) Sepsis Current visit: Yes Status: Resolved Presents today with acute on chronic respiratory with hypercapnea and hypoxia. Sepsis secondary to PNA She has a decreased LOC and is currently only responsive to painful stimuli Patient has WBC 20.6, tachypnea, tachycardia, AMS, and VBG of 7.23 PCO2 91 PO2 135, and HCO3 38 GCS 3, QSOFA score of 2 See further planning above Qualifiers: Sepsis type: sepsis due to unspecified organism Qualified Code(s): A41.9 - Sepsis, unspecified organism (3) Acute on chronic respiratory failure with hypercapnia Current visit: Yes Status: Acute secondary to PNA, h/o COPD (4) COPD exacerbation Current visit: Yes Status: Acute see plan above (5) CAD (coronary artery disease) Current visit: Yes Status: Chronic Continue ASA, statin, and BB Qualifiers: Coronary Disease-Associated Artery/Lesion type: [place] artery [place] vs. transplanted heart: [place] heart Associated angina: without angina Qualified Code(s): I25.10 - Atherosclerotic heart disease of [place] coronary artery without angina pectoris (6) DVT prophylaxis Current visit: Yes Status: Acute Heparin 5000 units SC BID Internal Medicine - H&P: HPI Chief complaint: Dyspnea, hypoxia, hypercapnea Admitted From: Home Plans for Post Hospital Care: Home History of present illness: Ms. Cook is a 66 year old female with a PMH of COPD, hypertension and CT 2. The patient is hypersomnolent and difficult to arouse per my assessment. She presents to [facility] ED today with complaints of severe progressive dyspnea both at rest and with exertion which began this past Sunday. Additionally, she is reporting a cough productive of thick, yellow/green sputum over the last 2 days. She is also reporting, fever, chills, fatigue. Her daughter is at bedside and able to help provide history. Her daughter states that she has not mentioned having any chest pain, she denies any nausea, vomiting, diarrhea or unilateral extremity swelling/pain. She reports that her mother has had to increase her nebulizer usage and increase her home oxygen from 2-3 L and was still relieved of dyspnea. The patient was recently admitted to [facility] and treated for pneumonia. Today's CT chest is negative for PE but show improving multifocal opacities and chronic inflammatory changes. Due to continual decline the patient is being admitted as inpatient for further treatment and observation. Past Med Surg Social Fam HX - Past Medical History Medical history: COPD, hypertension Psychiatric history: anxiety - Past Surgical History Surgical History: hysterectomy, orthopedic, other - Social History Smoking Status: Former smoker Smokeless Tobacco Status: No Alcohol use: none Drug use: none - Family History Mother Living Status: Hx Family Cardiac Disorders: Yes Hx Family Cancer: Yes (colon ca) Hx Family Neurologic Disorders: Yes (cva) Hx Family HEENT Disorders: Yes (macular degeneration) Father Adopted: No Family Member Ethnicity: Non- Living Status: Hx Family Cardiac Disorders: Yes Hx Family Respiratory Disorders: No Hx Family Cancer: Yes (colon ca 1979) Hx Family GI Disorders: No Hx Family Endocrine Disorder: No Hx Family Neuromuscular Disorders: No Hx Family Neurologic Disorders: Yes (CVA with left side weakness) Hx Family HEENT Disorders: Yes (macular degeneration) Hx Family Autoimmune Disorders: No Internal Medicine - H&P: Meds Ipratropium/Albuterol Neb [Duoneb] 3 ml IH QID PRN 08/12/15 [History] Omeprazole [PriLOSEC] 20 mg PO DAILY 08/12/15 [History] Aspirin 81 mg PO DAILY tab.chew 04/06/16 [Rx] Atorvastatin [Lipitor] 40 mg PO HS 01/26/17 [History] Metoprolol Succinate 100 mg PO DAILY 01/26/17 [History] Losartan [Cozaar] 100 mg PO DAILY tablet 02/01/17 [Rx] Magnesium Oxide [Mag-Ox] 400 mg PO BID tablet 02/01/17 [Rx] Potassium Chloride 10 meq PO DAILY #30 tab.er.prt 02/16/17 [Rx] ALPRAZolam [Xanax 0.25 MG Tablet] 0.25 mg PO Q8HR PRN #15 tablet 03/01/17 [Rx] Ibuprofen [Motrin] 600 mg PO Q6HR PRN 7 Days #28 tab 04/24/17 [Rx] OxyCODONE Immed Rel [Roxicodone 5 MG] 5 mg PO Q6HR PRN 7 Days #28 tablet [Rx] Ergocalciferol (VITAMIN D2) [Drisdol (50,000 Unit)] 50,000 unit PO ADLER 04/25/17 [ History] Escitalopram [Lexapro] 10 mg PO DAILY 04/25/17 [History] HYDROcodone/Acet 5/325 mg [[place] 5-325 mg] 1 tab PO Q6H PRN 04/25/17 [History] Theophylline Anhydrous [Theophylline] 200 mg PO DAILY 04/25/17 [History] Tiotropium [Spiriva] 1 puff IH DAILY 04/25/17 [History] Bumetanide 0.5 mg PO DAILY 04/27/17 [History] Docusate [Colace] 100 mg PO BID 04/27/17 [History] predniSONE [PredniSONE] 40 mg PO DAILY 2 Days #4 tablet 05/03/17 [Rx] 3 Allergy/AdvReac Type Severity Reaction Status Date / Time No Known Allergies Allergy Verified 04/25/17 11:29 All Systems PM: A 10-system review of systems was performed and is negative for pertinent findings except as documented above in the HPI. Review of systems: REVIEW OF SYSTEMS GENERAL: Positive for fever, chills, loss of appetite and fatigue NEUROLOGIC: Negative for any blurry vision, blind spots, double vision, facial asymmetry, dysphagia, dysarthria, hemiparesis, hemisensory deficits, vertigo, ataxia. HEENT: Negative for any head trauma, neck trauma, neck stiffness, photophobia, phonophobia, sinusitis, rhinitis. CARDIAC: Negative for any chest pain, peripheral edema. PULMONARY: Positive for dyspnea at rest and with exertion. Positive for cough productive of green/yellow thick sputum GASTROINTESTINAL: Negative for any abdominal pain, nausea, vomiting, bright red blood per rectum, melena. GENITOURINARY: Negative for any dysuria, hematuria, incontinence. INTEGUMENTARY: Negative for any rashes, cuts, insect bites. RHEUMATOLOGIC: Negative for any joint pains, photosensitive rashes, history of vasculitis or kidney problems. HEMATOLOGIC: Negative for any abnormal bruising, frequent infections or bleeding. - Constitutional Vitals: Temp Pulse Resp BP Pulse Ox 97.9 F 112 20 128/68 94 06/23/17 09:45 06/23/17 13:06 06/23/17 13:06 06/23/17 13:06 06/23/17 13:06 Exam: PHYSICAL EXAMINATION: GENERAL: The patient is an obese, ill appearing female in respiratory distress. She appears to be hypersomnolent and minimally arousable to painful stimuli HEENT: Head is normocephalic and atraumatic. Pupils are equal, round, and reactive to light and accommodation. NECK: Supple. No carotid bruits. No lymphadenopathy or thyromegaly. LUNGS: Diminished to auscultation, mild expiratory wheezing noted bilaterally anterior and posterior, left lower posterior lobe rhonchi to auscultation HEART: Tachycardic and regular rhythm without murmur rub or gallop. ABDOMEN: Soft, nontender, and nondistended. Positive bowel sounds. EXTREMITIES: Without any cyanosis, clubbing, rash, lesions or edema. SKIN: No ulceration or induration present. Internal Med - H&P Results - Labs CBC & Chem 7: 06/23/17 10:08 06/23/17 10:08 Labs: Short CBC 06/23/17 Range/Units 10:08 WBC 20.6 H (4.3-11.1) K/mcL Hgb 13.8 (11.5-15.4) g/dL Hct 44.3 (35.3-44.9) % Plt Count 437 H (140-400) K/mcL Neutrophils # 18.7 H (1.6-8.9) K/mcL BMP 06/23/17 10:08 Sodium 133 L Potassium 3.9 Chloride 92 L Carbon Dioxide 36 H BUN 10 Creatinine 0.52 L Glucose 146 H Calcium 10.0 Cardiac Enzymes 06/23/17 Range/Units 10:08 Troponin I 0.05 H* (< 0.04) ng/mL - ABG Interpretation ABG results: 06/23/17 10:24 VBG pH 7.23 L VBG pCO2 91 H* VBG pO2 135 H VBG HCO3 38 H - EKG Data -: EKG Interpreted by Myself EKG shows normal: sinus rhythm Rate: tachycardia - EKG Data Prior EKG available for review: yes When compared to previous EKG: there is no significant change - Impressions ITS Impressions Chest X-Ray 06/23/17 09:48 IMPRESSION: Bilateral interstitial opacities and thickening of the minor fissure may reflect interstitial edema. D/ / 06/23/2017 11:13:51 Marshall Irwin MD / [facility] Interpreting Provider: Marshall Irwin MD Chest CTA 06/23/17 10:39 IMPRESSION: 1. No pulmonary embolism. 2. Improved aeration of multifocal airspace opacities described on the patient's prior CT. Residual reticular and nodular opacities would favor a chronic infectious or inflammatory process. Differential considerations would include resolving pneumonia, cryptogenic organizing pneumonia, eosinophilic pneumonia. 3. Moderate centrilobular emphysema. 4. Reactive mediastinal and right hilar lymph nodes. D/ / Clifton Jasso MD / Clifton Jasso MD Interpreting Provider: Clifton Jasso MD <Vidal Kate - Last Filed: 06/23/17 16:12> Date of Encounter: 06/23/17 Time of Encounter: 14:15 Internal Medicine - H&P: HPI History of present illness: Ms. Cook is a 66 year old female All Systems PM: A 10-system review of systems was performed and is negative for pertinent findings except as documented above in the HPI. - Constitutional Vitals: Temp Pulse Resp BP Pulse Ox 97.9 F 119 12 192/107 99 06/23/17 09:45 06/23/17 14:31 06/23/17 14:26 06/23/17 14:31 06/23/17 14:31 Internal Med - H&P Results - Labs CBC & Chem 7: 06/23/17 10:08 06/23/17 10:08 - ABG Interpretation ABG results: 06/23/17 15:50 ABG pH 7.19 L* ABG pCO2 115 H* ABG pO2 166 H D ABG HCO3 43 H ABG Total CO2 47 H ABG O2 Saturation 99 H ABG Base Excess 9 H - Impressions ITS Impressions Chest X-Ray 06/23/17 14:21 IMPRESSION: 1. Endotracheal tube tip 4 cm above the [place]. 2. Mild peripheral and basilar opacities, better evaluated on recent CT. D/ / 06/23/2017 14:42:00 Pietro Amezcua MD / [facility] Interpreting Provider: Pietro Amezcua MD KUB X-Ray 06/23/17 14:31 IMPRESSION: Enteric tube present with tip in the mid body of the stomach and side-port in the proximal body of the stomach. Nonspecific gaseous distention of stomach. D/ / Charles Ward MD / Charles Ward MD Interpreting Provider: Charles Ward MD - Attending Attestation I examined this patient and my medical decision-making was reviewed with the Nurse Practitioner, Diony Murguia. I agree with the documented findings, disposition and treatment plan as described with any changes as documented below. 66-year-old female patient with history of COPD, coronary artery disease, hypertension who presented to the ER with complaints of worsening dyspnea along with cough and sputum production, fever and chills for the past 6 days. She was initially evaluated in the ER and placed on BiPAP. However, she became more somnolent and a repeat ABG showed worsening acidosis. During my evaluation , patient was responding to verbal commands but remained dyspneic and was becoming more somnolent. As such, we decided to intubate the patient. Patient was intubated by ER physician. She will then be transferred to ICU for admission. She was admitted here in April for pneumonia and during that time she had multifocal infiltrates bilaterally. Repeat CT scan of the chest done today showed decreasing infiltrates bilaterally. On examination she has bilateral diminished breath sounds with wheezing and rhonchi. She is in severe distress. Heart sounds are normal. Abdomen is soft and nontender. Acute respiratory failure with hypoxia and hypercapnia: Patient was severely hypercapnic with respiratory acidosis. Now intubated and mechanically ventilated. We will continue current vent settings. We will check ABG later today. Consult pulmonology for help with ICU management. Patient remains at risk for sudden clinical deterioration. Critical care time 35 minutes Sepsis due to pneumonia/bronchitis: On the CT scan does show intrauterine improving infiltrates, given the patient's symptoms of fever or chills and increased sputum production, she may be developing any about of pneumonia. Will treat with IV antibiotics. Follow culture results. Check pro-calcitonin. CT scan findings suggests possible cryptogenic organizing pneumonia/ eosinophilic pneumonia. Patient will be on IV steroids which should help treat these conditions. Await pulmonary input. COPD exacerbation: Patient does appear to have episode of acute COPD exacerbation. Will treat with IV steroids, bronchodilators. Coronary artery disease: Continue home medications for this condition. DVT prophylaxis: With subcutaneous heparin.
[2017-06-23 13:32] LABS: ABG Base Excess 9 mEq/L (-2 to 3); ABG HCO3 42 mEq/L (21-27); ABG Oxygen Saturation 92 % (95-98); ABG PCO2 110 mmHg (35-45); ABG PH 7.19 pH Units (7.32-7.45); ABG PO2 83 mmHg (85-104); ABG TCO2 45 mEq/L (20-26)
[2017-06-23] MEDS ORDERED: Lacri-Lube 3.5 GM TUBE BOTH EYES PRN (14:33)
[2017-06-23] MEDS: Ipratropium/Albuterol Neb 3 ML IH SCH ×3 (15:36→23:42)
[2017-06-23] MEDS: FentaNYL (PF) 1,000 MCG in 0.9 % Sodium Chloride 80 ML IVC SCH (15:45)
[2017-06-23 15:57] LABS: ABG Base Excess 9 mEq/L (-2 to 3); ABG HCO3 43 mEq/L (21-27); ABG Oxygen Saturation 99 % (95-98); ABG PCO2 115 mmHg (35-45); ABG PH 7.19 pH Units (7.32-7.45); ABG PO2 166 mmHg (85-104); ABG TCO2 47 mEq/L (20-26); Blood Gas Modality PRVC; Blood Gas Respiration Rate 12; Blood Gas VT 500 cc
[2017-06-23] MEDS ORDERED: Ringers Solution, Lactated 1,000 ML IVC SCH (16:30)
[2017-06-23] MEDS: Levofloxacin 750 MG/150 ML 750 MG/150 ML BAG IVPB SCH (17:22)
[2017-06-23] MEDS: *HR* Heparin 5,000 UNIT/ML VIAL SQ SCH (17:23)
[2017-06-23] MEDS: MethylPREDNISolone 40 MG/ML VIAL IVP SCH (17:23)
[2017-06-23] MEDS: Lacri-Lube 3.5 GM TUBE BOTH EYES SCH ×2 (17:24→21:43)
[2017-06-23] MEDS ORDERED: MethylPREDNISolone 40 MG/ML VIAL IVP SCH (18:00)
[2017-06-23 18:32] LABS: ABG Base Excess 9 mEq/L (-2 to 3); ABG HCO3 39 mEq/L (21-27); ABG Oxygen Saturation 92 % (95-98); ABG PCO2 83 mmHg (35-45); ABG PH 7.28 pH Units (7.32-7.45); ABG PO2 77 mmHg (85-104); ABG TCO2 42 mEq/L (20-26); Blood Gas Modality PRVC; Blood Gas Respiration Rate 16; Blood Gas VT 450 cc
[2017-06-23] MEDS: Chlorhexidine Rinse 15 ML MOUTHWASH MM SCH (21:42)
[2017-06-24] MEDS: Piperacillin/Tazobactam 3.375 GM in 0.9 % Sodium Chloride Mini Bag 100 ML IVPB SCH ×4 (00:02→23:00)
[2017-06-24] MEDS: Lacri-Lube 3.5 GM TUBE BOTH EYES SCH ×7 (00:13→23:01)
[2017-06-24] MEDS: MethylPREDNISolone 40 MG/ML VIAL IVP SCH ×5 (00:13→23:01)
[2017-06-24 03:34] LABS: Adenovirus Not Detected (Not Detect); Bordetella Pertussis Not Detected (Not Detect); Chlamydophila pneumoniae Not Detected (Not Detect); Coronavirus 229E Not Detected (Not Detect); Coronavirus HKU1 Not Detected (Not Detect); Coronavirus NL63 Not Detected (Not Detect); Coronavirus OC43 Not Detected (Not Detect); Human Metapneumovirus Not Detected (Not Detect); Human Rhinovirus/Enterovirus Not Detected (Not Detect); Influenza A Subtype 2009 H1 Not Detected (Not Detect); Influenza A Untypeable Not Detected (Not Detect); Influenza B Not Detected (Not Detect); Mycoplasma pneumoniae Not Detected (Not Detect); Parainfluenza Virus 1 Not Detected (Not Detect); Parainfluenza Virus 2 Not Detected (Not Detect); Parainfluenza Virus 3 Not Detected (Not Detect); Parainfluenza Virus 4 Not Detected (Not Detect); Respiratory Syncytial Virus Not Detected (Not Detect)
[2017-06-24] MEDS: Ipratropium/Albuterol Neb 3 ML IH SCH ×5 (03:34→20:23)
[2017-06-24 05:14] LABS: ABG Base Excess 9 mEq/L (-2 to 3); ABG HCO3 38 mEq/L (21-27); ABG Oxygen Saturation 86 % (95-98); ABG PCO2 77 mmHg (35-45); ABG PO2 59 mmHg (85-104); ABG TCO2 41 mEq/L (20-26); Blood Gas Modality ASSIST CONTROL; Blood Gas Respiration Rate 16; Blood Gas VT 450 cc
[2017-06-24 05:40] LABS: Basophils % 0.1 %; Hematocrit 37.7 % (35.3-44.9); Immature Granulocytes % 0.5 % (0-4); Lymphocytes # 0.5 K/mcL (0.6-4.6); Lymphocytes % 3.6 %; Mean Corpuscular Hemoglobin 29.5 pg (28.0-33.3); Mean Corpuscular Volume 95.2 fL (83.0-100.0); Mean Platelet Volume 9.9 fL (9.4-12.4); Monocytes # 0.2 K/mcL (0.0-1.3); Monocytes % 1.8 %; Neutrophils # 12.6 K/mcL (1.6-8.9); Platelet Count 354 K/mcL (140-400); Red Blood Count 3.96 M/mcL (3.82-4.97); Red Cell Distribution Width 14.6 % (11.5-14.5)
[2017-06-24 05:44] LABS: Hemoglobin 11.7 g/dL (11.5-15.4)
[2017-06-24] MEDS: *HR* Heparin 5,000 UNIT/ML VIAL SQ SCH ×2 (06:07→17:17)
[2017-06-24 06:12] LABS: BUN/Creatinine Ratio 25 (6-26); Blood Urea Nitrogen 19 mg/dL (8-23); Calcium 9.9 mg/dL (8.6-10.3); Carbon Dioxide 33 mEq/L (23-29); Chloride 94 mEq/L (98-107); Chol/HDL Ratio 2.4 (0-4.9); Cholesterol 149 mg/dL (< 200); Glucose 136 mg/dL (70-105); HDL Cholesterol 62 mg/dL (40-59); LDL Cholesterol,Calculated 70 mg/dL (0-99); Osmolality,Calculated 282 (280-300); Potassium 3.7 mEq/L (3.5-5.1); Sodium 134 mEq/L (136-145); Triglycerides 86 mg/dL (< 150); eGFR For African Americans > 60 (> 60); eGFR For Non-African Americans > 60 (> 60)
--- NOTE | 2017-06-24 07:22 | Pulmonology Consult Note ---
<Tanner Perera W - Last Filed: 06/24/17 11:41> Date of Encounter: 06/24/17 Medications and Allergies Ipratropium/Albuterol Neb [Duoneb] 3 ml IH QID PRN 08/12/15 [History] Omeprazole [PriLOSEC] 20 mg PO DAILY 08/12/15 [History] Aspirin 81 mg PO DAILY tab.chew 04/06/16 [Rx] Atorvastatin [Lipitor] 40 mg PO HS 01/26/17 [History] Metoprolol Succinate 100 mg PO DAILY 01/26/17 [History] Losartan [Cozaar] 100 mg PO DAILY tablet 02/01/17 [Rx] Magnesium Oxide [Mag-Ox] 400 mg PO BID tablet 02/01/17 [Rx] Potassium Chloride 10 meq PO DAILY #30 tab.er.prt 02/16/17 [Rx] ALPRAZolam [Xanax 0.25 MG Tablet] 0.25 mg PO Q8HR PRN #15 tablet 03/01/17 [Rx] Ibuprofen [Motrin] 600 mg PO Q6HR PRN 7 Days #28 tab 04/24/17 [Rx] Ergocalciferol (VITAMIN D2) [Drisdol (50,000 Unit)] 50,000 unit PO ADLER 04/25/17 [ History] Escitalopram [Lexapro] 10 mg PO DAILY 04/25/17 [History] Theophylline Anhydrous [Theophylline] 200 mg PO DAILY 04/25/17 [History] Tiotropium [Spiriva] 18 mcg IH DAILY 04/25/17 [History] Bumetanide 0.5 mg PO DAILY 04/27/17 [History] Docusate [Colace] 100 mg PO BID 04/27/17 [History] predniSONE [PredniSONE] 40 mg PO DAILY 2 Days #4 tablet 05/03/17 [Rx] OxyCODONE Immed Rel [Roxicodone 5 MG] 5 mg PO Q8H PRN 06/24/17 [History] 3 Allergy/AdvReac Type Severity Reaction Status Date / Time No Known Allergies Allergy Verified 04/25/17 11:29 All Systems: The remainder of the systems were reviewed and are negative Physical Examination Vital Signs: Vital Signs, Last 4 Hours Temp Pulse Resp BP Pulse Ox 06/24/17 08:14 98.1 F 06/24/17 08:00 118 23 127/63 93 06/24/17 07:00 107 16 92/46 92 06/24/17 06:00 110 16 102/40 92 06/24/17 05:19 17 116/52 93 06/24/17 05:00 115 16 106/53 91 Ventilator Settings Ventilator Settings: Ventilator Settings, Last 8 Hours Ventilator Mode VC+ Ventilator Mode VC+ Ventilator Mode VC+ Ventilator Mode VC+ Ventilator Mode VC+ Ventilator Mode VC+ Ventilator Mode VC+ Ventilator Mode VC+ Ventilator Mode VC+ Ventilator Mode VC+ Ventilator Mode VC+ Ventilator Mode VC+ Ventilator Tidal Volume 450 Setting Ventilator Tidal Volume 450 Setting Ventilator Tidal Volume 450 Setting Ventilator Tidal Volume 450 Setting Ventilator Tidal Volume 450 Setting Ventilator Tidal Volume 450 Setting Ventilator Tidal Volume 450 Setting Ventilator Tidal Volume 450 Setting Ventilator Tidal Volume 450 Setting Ventilator Tidal Volume 450 Setting Ventilator Tidal Volume 450 Setting Ventilator Tidal Volume 450 Setting Ventilator Respiratory Rate 16 Setting Ventilator Respiratory Rate 16 Setting Ventilator Respiratory Rate 16 Setting Ventilator Respiratory Rate 16 Setting Ventilator Respiratory Rate 16 Setting Ventilator Respiratory Rate 16 Setting Ventilator Respiratory Rate 16 Setting Ventilator Respiratory Rate 16 Setting Ventilator Respiratory Rate 16 Setting Ventilator Respiratory Rate 16 Setting Ventilator Respiratory Rate 16 Setting Ventilator Respiratory Rate 16 Setting Actual Respiratory Rate 16 Actual Respiratory Rate 16 Actual Respiratory Rate 16 Actual Respiratory Rate 17 Actual Respiratory Rate 16 Actual Respiratory Rate 17 Actual Respiratory Rate 16 Actual Respiratory Rate 16 Actual Respiratory Rate 16 Actual Respiratory Rate 16 Actual Respiratory Rate 16 Positive End Expiratory 5 Pressure Positive End Expiratory 5 Pressure Positive End Expiratory 5 Pressure Positive End Expiratory 5 Pressure Positive End Expiratory 5 Pressure Positive End Expiratory 5 Pressure Positive End Expiratory 5 Pressure Positive End Expiratory 5 Pressure Positive End Expiratory 5 Pressure Positive End Expiratory 5 Pressure Positive End Expiratory 5 Pressure Positive End Expiratory 5 Pressure Peak Inspiratory Airway 26 Pressure Peak Inspiratory Airway 24 Pressure Peak Inspiratory Airway 25 Pressure Peak Inspiratory Airway 26 Pressure Peak Inspiratory Airway 26 Pressure Peak Inspiratory Airway 26 Pressure Peak Inspiratory Airway 27 Pressure Peak Inspiratory Airway 27 Pressure Peak Inspiratory Airway 26 Pressure Results - Laboratory Findings CBC and BMP: 06/24/17 04:33 06/24/17 04:33 ABG ABG pH 7.30 pH Units (7.32-7.45) L 06/24/17 05:09 ABG pCO2 77 mmHg (35-45) H* 06/24/17 05:09 ABG pO2 59 mmHg (85-104) L 06/24/17 05:09 ABG O2 Saturation 86 % (95-98) L 06/24/17 05:09 PT/INR, D-dimer D-Dimer 1254 ng/mLFEU (0-500) H 06/23/17 10:12 Abnormal lab findings: Abnormal lab results WBC 13.4 K/mcL (4.3-11.1) H 06/24/17 04:33 MCHC 31.0 g/dL (31.6-35.5) L 06/24/17 04:33 RDW 14.6 % (11.5-14.5) H 06/24/17 04:33 Neutrophils # 12.6 K/mcL (1.6-8.9) H 06/24/17 04:33 Lymphocytes # 0.5 K/mcL (0.6-4.6) L 06/24/17 04:33 D-Dimer 1254 ng/mLFEU (0-500) H 06/23/17 10:12 ABG pH 7.30 pH Units (7.32-7.45) L 06/24/17 05:09 ABG pCO2 77 mmHg (35-45) H* 06/24/17 05:09 ABG pO2 59 mmHg (85-104) L 06/24/17 05:09 ABG HCO3 38 mEq/L (21-27) H 06/24/17 05:09 ABG Total CO2 41 mEq/L (20-26) H 06/24/17 05:09 ABG O2 Saturation 86 % (95-98) L 06/24/17 05:09 ABG Base Excess 9 mEq/L (-2 to 3) H 06/24/17 05:09 VBG pH 7.23 pH Units (7.32-7.42) L 06/23/17 10:24 VBG pCO2 91 mmHg (41-51) H* 06/23/17 10:24 VBG pO2 135 mmHg (25-50) H 06/23/17 10:24 VBG HCO3 38 mEq/L (21-27) H 06/23/17 10:24 Sodium 134 mEq/L (136-145) L 06/24/17 04:33 Chloride 94 mEq/L (98-107) L 06/24/17 04:33 Carbon Dioxide 33 mEq/L (23-29) H 06/24/17 04:33 Glucose 136 mg/dL (70-105) H 06/24/17 04:33 POC Glucose 107 (58-89) H 06/23/17 23:30 B-Natriuretic Peptide 103 pg/mL (Less than 100) H 06/23/17 10:08 HDL Cholesterol 62 mg/dL (40-59) H 06/24/17 04:33 - Microbiology Findings Microbiology Findings: Microbiology, Last 48 Hours 06/24/17 01:58 Legionella Antigen - Final Urine,Clean Catch Streptococcus pneumoniae Antigen (M - Final 06/23/17 22:45 Sputum Culture - Preliminary Sputum - Clinical Findings Intake & Output: Intake & Output 06/23/17 06/24/17 06/24/17 23:59 07:59 15:59 Intake Total 435.5 / 435.5 1580.4 / 1580.4 12 Output Total 625 / 625 50 / 50 50 / 50 Balance -189.5 / -189.5 1530.4 / 1530.4 -38 / -38 Weight 90.8 kg Consult Discharge Plan - Plan Referrals: Dion Whitman MD [Primary Care Provider] - - Attending Attestation I examined this patient and my medical decision-making was reviewed with the Resident Physician. I agree with the documented findings, disposition and treatment plan as described except to the extent set forth below. We independently had [id number] contact with the patient Patient seen and examined at bedside Labs, radiology, chart personally reviewed. Management was reviewed during multidisciplinary critical care rounds. 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 Sedation holiday today performed and patient able to follow all commands however she quickly became anxious and had increased tachypnea and heart rate and had to be re-sedated coal John score 3 Pulm: Acute on chronic hypoxic hypercarbic respiratory failure secondary to COPD exacerbation complicated by pneumonia and hydrostatic pulmonary edema. She is currently on the ventilator with acceptable oxygenation not a candidate for spontaneous breathing trial today because of agitation we will reassess tomorrow continue bronchodilators and IV steroids continue antibiotics. She does have multifocal infiltrates that put her at risk for chronic inflammatory or infectious process which would benefit from bronchoscopy with transbronchial biopsy under fluoroscopy when more stable possibly around the time of discharge from the hospital versus follow-up radiographically to resolution. Continue vent bundle to prevent VAP Cards: Slight troponin elevation on admission which is likely due to demand ischemia and has normalized. Blood pressure monitored and stable although increasing. She has heart failure with preserved ejection fraction doleful this on heart rate control by restarting home beta brenda in divided doses along with starting diuresis FEN-GI: Nothing by mouth for now GI prophylaxis given Renal: No evidence of [place] urine output monitored trend electrolytes ID: She been treated for pneumonia on broad-spectrum antibiotics with prominent de-escalate of the next 24-48 hours based upon clinical course. I have sent AFB cultures to determine if + nontuberculous mycobacterium infection but as above she will likely need bronchoscopy Heme/Onc: DVT prophylaxis given Endo: Glucose Monitored Integ/MSK: Skin Care per routine ICU Nursing Protocol to prevent ulcers. Lines: All lines examined without evidence of infection : Dispo: Remain in ICU for vent mngt CODE: Full Code. <Aris Lopez - Last Filed: 06/24/17 12:03> Date of Encounter: 06/24/17 Time of Encounter: 07:21 Assessment and Plan (1) Acute on chronic respiratory failure with hypercapnia Current Visit: Yes Status: Acute COPD Exacerbation / HCAP -- 30 pack year history -- on Mechanical Vent -- ABGs improving, will check qAM while intubated -- cont monitoring WBC daily -- previous ECHO marginal, but will attend to any signs of volume overload -- cont Abx including vanc, Levaquin, and Zosyn pending blood cultures -- Sputum culture prelim demonstrates G- robs and G+ diplococci; cont broad scope abx and de-escalate as able pending final culture reports -- negative Legionella and S. Pneumo -- AFB pending (assessing for MAC) -- Cont Solu-medrol and Bronchodilators -- Will attempt vent wean in subsequent days -- (2) Sepsis Current Visit: No Status: Acute Qualifiers: Sepsis type: sepsis due to unspecified organism Qualified Code(s): A41.9 - Sepsis, unspecified organism (3) COPD exacerbation Current Visit: Yes Status: Acute (4) Pneumonia Current Visit: Yes Status: Acute Qualifiers: Pneumonia type: due to unspecified organism Laterality: bilateral Lung location: unspecified part of lung Qualified Code(s): J18.9 - Pneumonia, unspecified organism (5) Elevated troponin Current Visit: Yes Status: Acute (6) DVT prophylaxis Current Visit: Yes Status: Acute History of Present Illness Requesting physician: Vidal Kate Reason for consult: dyspnea, COPD, hypoxemia (Acidotic and ^pCO2 ABG; failed BiPAP; required ET tube) Chief complaint: Increase shortness of breath and productive cough History of present illness: HPI elements obtained from ED/hospitalist documentation as patient is sedated and unable to provide history. Patient is a 66-year-old female with 30 pack your smoking history, history of COPD, recent pneumonia, recent hospitalization for pneumonia, hypertension, and diabetes. Recent hospitalization for COPD exacerbation/pneumonia requiring BiPAP. For the past 2 or 3 days, patient has had increasing shortness of breath as well as productive cough and subjective fever. ED course: placed on BiPAP, given Solu-Medrol/duonebs, imaging obtained, by work obtain including troponin, D dimer, and ABG. Patient continued have tenuous respiratory status, so decision was made to intubate with patient's consent. CXR showed some edema. CTA did not demonstrate PE, but did show airspace disease (centrilobular). Troponin borderline with negative repeats x2 and BNP was 103 (recent ECHO demonstrates mild diastolic dysfunction). Past Med Surg Social Fam HX - Past Medical History Medical history: COPD, hypertension Psychiatric history: anxiety - Past Surgical History Surgical History: hysterectomy, orthopedic, other - Social History Smoking Status: Former smoker Packs per day: 1 Smokeless Tobacco Status: No Alcohol use: none Drug use: none - Family History Mother Family Member Ethnicity: Non- Living Status: Age at : 92 Hx Family Cardiac Disorders: Yes Hx Family Cancer: Yes (Colon) Hx Family Neurologic Disorders: Yes (cva) Hx Family HEENT Disorders: Yes (macular degeneration) Father Adopted: No Family Member Ethnicity: Non- Living Status: Hx Family Cardiac Disorders: Yes Hx Family Respiratory Disorders: No Hx Family Cancer: Yes (colon ca 1979) Hx Family GI Disorders: No Hx Family Endocrine Disorder: No Hx Family Neuromuscular Disorders: No Hx Family Neurologic Disorders: Yes (CVA with left side weakness) Hx Family HEENT Disorders: Yes (macular degeneration) Hx Family Autoimmune Disorders: No ROS unobtainable: due to endotracheal tube All Systems: The remainder of the systems were reviewed and are negative Physical Examination Vital Signs: Vital Signs, Last 4 Hours Temp Pulse Resp BP Pulse Ox 06/24/17 06:00 110 16 102/40 92 06/24/17 05:19 17 116/52 93 06/24/17 05:00 115 16 106/53 91 06/24/17 04:00 99.3 F 116 19 100/55 92 06/24/17 03:45 112 06/24/17 03:34 16 107/57 91 CONSTITUTIONAL: comfortably sedated, mildly tachycardic on monitor HEAD: Normocephalic; atraumatic. EYES: PER, no icterus/injection RESP: NRD, ET tube in place, see vent settings, clear lung sounds bilaterally to anterior/lateral cotter CARD: Regular rhythm, tachycardic, without murmurs, rubs, or gallop ABD: grossly normal, soft, no wincing against palpation SKIN: normal appearance; no pallor/diaphoresis,mottling,jaundice,cyanosis EXT: Rad pulses 2+ and symmetrical; no lateralizing edema; no other lesions seen Ventilator Settings Ventilator Settings: Ventilator Settings, Last 8 Hours Ventilator Mode VC+ Ventilator Mode VC+ Ventilator Mode VC+ Ventilator Mode VC+ Ventilator Mode VC+ Ventilator Mode VC+ Ventilator Mode VC+ Ventilator Mode VC+ Ventilator Mode VC+ Ventilator Mode VC+ Ventilator Mode VC+ Ventilator Mode VC+ Ventilator Tidal Volume 450 Setting Ventilator Tidal Volume 450 Setting Ventilator Tidal Volume 450 Setting Ventilator Tidal Volume 450 Setting Ventilator Tidal Volume 450 Setting Ventilator Tidal Volume 450 Setting Ventilator Tidal Volume 450 Setting Ventilator Tidal Volume 450 Setting Ventilator Tidal Volume 450 Setting Ventilator Tidal Volume 450 Setting Ventilator Tidal Volume 450 Setting Ventilator Tidal Volume 450 Setting Ventilator Respiratory Rate 16 Setting Ventilator Respiratory Rate 16 Setting Ventilator Respiratory Rate 16 Setting Ventilator Respiratory Rate 16 Setting Ventilator Respiratory Rate 16 Setting Ventilator Respiratory Rate 16 Setting Ventilator Respiratory Rate 16 Setting Ventilator Respiratory Rate 16 Setting Ventilator Respiratory Rate 16 Setting Ventilator Respiratory Rate 16 Setting Ventilator Respiratory Rate 16 Setting Ventilator Respiratory Rate 16 Setting Actual Respiratory Rate 16 Actual Respiratory Rate 17 Actual Respiratory Rate 16 Actual Respiratory Rate 17 Actual Respiratory Rate 16 Actual Respiratory Rate 16 Actual Respiratory Rate 16 Actual Respiratory Rate 16 Actual Respiratory Rate 16 Actual Respiratory Rate 16 Actual Respiratory Rate 16 Positive End Expiratory 5 Pressure Positive End Expiratory 5 Pressure Positive End Expiratory 5 Pressure Positive End Expiratory 5 Pressure Positive End Expiratory 5 Pressure Positive End Expiratory 5 Pressure Positive End Expiratory 5 Pressure Positive End Expiratory 5 Pressure Positive End Expiratory 5 Pressure Positive End Expiratory 5 Pressure Positive End Expiratory 5 Pressure Positive End Expiratory 5 Pressure Peak Inspiratory Airway 26 Pressure Peak Inspiratory Airway 24 Pressure Peak Inspiratory Airway 25 Pressure Peak Inspiratory Airway 26 Pressure Peak Inspiratory Airway 26 Pressure Peak Inspiratory Airway 26 Pressure Peak Inspiratory Airway 27 Pressure Peak Inspiratory Airway 27 Pressure Peak Inspiratory Airway 26 Pressure Peak Inspiratory Airway 26 Pressure Peak Inspiratory Airway 27 Pressure Results - Laboratory Findings CBC and BMP: 06/24/17 04:33 06/24/17 04:33 ABG ABG pH 7.30 pH Units (7.32-7.45) L 06/24/17 05:09 ABG pCO2 77 mmHg (35-45) H* 06/24/17 05:09 ABG pO2 59 mmHg (85-104) L 06/24/17 05:09 ABG O2 Saturation 86 % (95-98) L 06/24/17 05:09 PT/INR, D-dimer D-Dimer 1254 ng/mLFEU (0-500) H 06/23/17 10:12 Abnormal lab findings: Abnormal lab results WBC 13.4 K/mcL (4.3-11.1) H 06/24/17 04:33 MCHC 31.0 g/dL (31.6-35.5) L 06/24/17 04:33 RDW 14.6 % (11.5-14.5) H 06/24/17 04:33 Neutrophils # 12.6 K/mcL (1.6-8.9) H 06/24/17 04:33 Lymphocytes # 0.5 K/mcL (0.6-4.6) L 06/24/17 04:33 D-Dimer 1254 ng/mLFEU (0-500) H 06/23/17 10:12 ABG pH 7.30 pH Units (7.32-7.45) L 06/24/17 05:09 ABG pCO2 77 mmHg (35-45) H* 06/24/17 05:09 ABG pO2 59 mmHg (85-104) L 06/24/17 05:09 ABG HCO3 38 mEq/L (21-27) H 06/24/17 05:09 ABG Total CO2 41 mEq/L (20-26) H 06/24/17 05:09 ABG O2 Saturation 86 % (95-98) L 06/24/17 05:09 ABG Base Excess 9 mEq/L (-2 to 3) H 06/24/17 05:09 VBG pH 7.23 pH Units (7.32-7.42) L 06/23/17 10:24 VBG pCO2 91 mmHg (41-51) H* 06/23/17 10:24 VBG pO2 135 mmHg (25-50) H 06/23/17 10:24 VBG HCO3 38 mEq/L (21-27) H 06/23/17 10:24 Sodium 134 mEq/L (136-145) L 06/24/17 04:33 Chloride 94 mEq/L (98-107) L 06/24/17 04:33 Carbon Dioxide 33 mEq/L (23-29) H 06/24/17 04:33 Glucose 136 mg/dL (70-105) H 06/24/17 04:33 POC Glucose 107 (58-89) H 06/23/17 23:30 B-Natriuretic Peptide 103 pg/mL (Less than 100) H 06/23/17 10:08 HDL Cholesterol 62 mg/dL (40-59) H 06/24/17 04:33 - Microbiology Findings Microbiology Findings: Microbiology, Last 48 Hours 06/24/17 01:58 Legionella Antigen - Final Urine,Clean Catch Streptococcus pneumoniae Antigen (M - Final 06/23/17 22:45 Sputum Culture - Preliminary Sputum - Clinical Findings Intake & Output: Intake & Output 06/23/17 06/23/17 06/24/17 15:59 23:59 07:59 Intake Total 100 / 100 435.5 / 435.5 1580.4 / 1580.4 Output Total 625 / 625 50 / 50 Balance 100 / 100 -189.5 / -189.5 1530.4 / 1530.4 Weight 90.8 kg
[2017-06-24] MEDS: Chlorhexidine Rinse 15 ML MOUTHWASH MM SCH ×2 (08:10→20:04)
[2017-06-24] MEDS: Aspirin 81 MG TAB.CHEW PO SCH (08:10)
[2017-06-24] MEDS: FentaNYL (PF) 1,000 MCG in 0.9 % Sodium Chloride 80 ML IVC SCH ×2 (08:45→21:17)
[2017-06-24] MEDS ORDERED: *HR* Metoprolol 5 MG/5 ML VIAL IVP ONE ×2 (09:02)
[2017-06-24] MEDS ORDERED: Furosemide 40 MG/4 ML VIAL IVP ONE (09:45)
[2017-06-24] MEDS ORDERED: Furosemide 20 MG/2 ML VIAL IVP ONE (10:01)
[2017-06-24] MEDS: Pantoprazole 40 MG VIAL IVP SCH (10:05)
[2017-06-24] MEDS: Levofloxacin 750 MG/150 ML 750 MG/150 ML BAG IVPB SCH (13:52)
[2017-06-25] MEDS: Ipratropium/Albuterol Neb 3 ML IH SCH ×7 (00:34→23:31)
[2017-06-25] MEDS: Lacri-Lube 3.5 GM TUBE BOTH EYES SCH ×7 (01:33→23:03)
[2017-06-25 02:50] LABS: Basophils % 0.1 %; Hematocrit 35.5 % (35.3-44.9); Hemoglobin 11.1 g/dL (11.5-15.4); Immature Granulocytes % 0.7 % (0-4); Immature Platelets 3.6 % (1.1-6.1); Lymphocytes # 0.4 K/mcL (0.6-4.6); Lymphocytes % 2.5 %; Mean Corpuscular HGB Conc 31.3 g/dL (31.6-35.5); Mean Corpuscular Hemoglobin 29.4 pg (28.0-33.3); Mean Corpuscular Volume 94.2 fL (83.0-100.0); Mean Platelet Volume 9.7 fL (9.4-12.4); Monocytes # 0.4 K/mcL (0.0-1.3); Monocytes % 2.7 %; Neutrophils # 14.8 K/mcL (1.6-8.9); Platelet Count 373 K/mcL (140-400); Red Blood Count 3.77 M/mcL (3.82-4.97); Red Cell Distribution Width 14.8 % (11.5-14.5)
[2017-06-25] MEDS: MethylPREDNISolone 40 MG/ML VIAL IVP SCH ×4 (05:04→23:02)
[2017-06-25] MEDS: *HR* Heparin 5,000 UNIT/ML VIAL SQ SCH ×2 (05:06→17:14)
[2017-06-25 05:21] LABS: BUN/Creatinine Ratio 30 (6-26); Blood Urea Nitrogen 25 mg/dL (8-23); Calcium 9.6 mg/dL (8.6-10.3); Carbon Dioxide 33 mEq/L (23-29); Chloride 97 mEq/L (98-107); Glucose 130 mg/dL (70-105); Osmolality,Calculated 294 (280-300); Potassium 3.3 mEq/L (3.5-5.1); Sodium 139 mEq/L (136-145); eGFR For African Americans > 60 (> 60); eGFR For Non-African Americans > 60 (> 60)
[2017-06-25 05:38] LABS: ABG Base Excess 12 mEq/L (-2 to 3); ABG HCO3 40 mEq/L (21-27); ABG Oxygen Saturation 94 % (95-98); ABG PCO2 69 mmHg (35-45); ABG PH 7.38 pH Units (7.32-7.45); ABG PO2 77 mmHg (85-104); ABG TCO2 43 mEq/L (20-26); Blood Gas Modality PRVC; Blood Gas Respiration Rate 16; Blood Gas VT 450 cc
[2017-06-25] MEDS: Pantoprazole 40 MG VIAL IVP SCH (07:11)
[2017-06-25] MEDS: Aspirin 81 MG TAB.CHEW PO SCH (07:11)
[2017-06-25] MEDS: Chlorhexidine Rinse 15 ML MOUTHWASH MM SCH ×2 (07:11→20:22)
[2017-06-25] MEDS: Piperacillin/Tazobactam 3.375 GM in 0.9 % Sodium Chloride Mini Bag 100 ML IVPB SCH ×3 (07:11→23:01)
[2017-06-25] MEDS ORDERED: Aminoglycoside Consult 1 EACH MC ONE (08:25)
[2017-06-25] MEDS: Potassium Chloride Elixir 20 MEQ/15 ML UDC PO SCH (08:46)
[2017-06-25] MEDS: Dexmedetomidine HCl 400 MCG/100 ML MLS IVC SCH ×3 (08:46→23:01)
--- NOTE | 2017-06-25 09:59 | Pulmonology Progress Note ---
<Ted Rodríguez - Last Filed: 06/25/17 13:15> Date of Encounter: 06/25/17 Time of Encounter: 09:59 Assessment and Plan (1) Acute on chronic respiratory failure with hypercapnia Current Visit: Yes Status: Acute - Acute on chronic respiratory failure secondary to COPD exacerbation with underlying PNA - CT scan on admission shows diffuse chronic reticular and nodular opacities suggestive of chronic inflammation/infection - WBC today slightly increased 15.8 from 13.4 - Vitals significant for HR 103, BP stable - Currently requiring ventilatory support. Attempting SBT this morning however she gets tachypnic and tachycardic following. - This may be secondary to anxiety. - Respiratory panel negative, sputum culture growing gram negative rods. Will repeat and await sensitivities. Plan - Continue Solumedrol 60mg q6 hours, Albuterol, Duonebs - Zosyn, levaquin day #3. Discontinue vancomycin - Will start precedex gtt and home lexapro for anxiety component - Lasix 20 mg IV once - Will attempt SBT again this afternoon or tomorrow. (2) COPD exacerbation Current Visit: Yes Status: Acute - As above for respiratory failure -continue steroids, levaquin, breathing treatments, vent (3) Pneumonia Current Visit: Yes Status: Acute - as above for respiratory failure. - continue zosyn, levaquin, day #3 Qualifiers: Pneumonia type: due to unspecified organism Laterality: bilateral Lung location: unspecified part of lung Qualified Code(s): J18.9 - Pneumonia, unspecified organism (4) Elevated troponin Current Visit: Yes Status: Acute - Troponin of 0.05 which was trended x3 and adynamic. - Likely secondary to increased cardiac demand. - No complaints of CP. - Will monitor (5) Anxiety Current Visit: Yes Status: Chronic - Anxiety likely playing a role in difficulty breathing and weaning from ventilator - Will crush lexapro and give via OG tube. Also takes ALprazolam at home - Will also start precedex gtt. - Continue to monitor and attempt SBT as above. (6) GERD (gastroesophageal reflux disease) Current Visit: Yes Status: Chronic Continue protonix while intubated. Qualifiers: Esophagitis presence: without esophagitis Qualified Code(s): K21.9 - Gastro -esophageal reflux disease without esophagitis (7) HTN (hypertension) Current Visit: Yes Status: Chronic Controlled at 138/80 - Continue home meds and will closely monitor while on sedation. Qualifiers: Hypertension type: essential hypertension Qualified Code(s): I10 - Essential (primary) hypertension (8) DVT prophylaxis Current Visit: Yes Status: Acute Heparin 5000 units q12 hours Subjective Principal diagnosis: COPD exacerbation Interval history: Patient was seen and examined at bedside this morning. She is intubated and unable to vocalized complaints, however she was alert and able to follow commands. She does nodes when asked if her breathing has improved. Objective PUL Vital signs: Last Vital Signs Temp 98.3 F 06/25/17 03:00 Pulse 110 06/25/17 09:00 Resp 20 06/25/17 09:25 BP 150/85 06/25/17 09:25 Pulse Ox 91 06/25/17 09:25 Gen.: Vitals noted. No acute distress. Alert, intubated HEENT: PERRL/EOMI, oropharynx clear, Normocephalic, atraumatic, MMM Cardiac: RRR, no murmur, +S1/S2 Pulmonary: Bibasilar crackles present. no wheezes, rales or rhonchi, equal chest expansion Abdomen: soft, nontender, BS noted, no guarding Extremities: no BLE edema, nontender calf, no cyanosis or clubbing Neuro: Alert, follows commands. Ventilator Settings Ventilator Settings: Ventilator Settings, Last 8 Hours Ventilator Mode VC+ Ventilator Mode VC+ Ventilator Mode VC+ Ventilator Mode VC+ Ventilator Mode VC+ Ventilator Mode VC+ Ventilator Mode VC+ Ventilator Mode VC+ Ventilator Mode VC+ Ventilator Mode VC+ Ventilator Mode VC+ Ventilator Mode VC+ Ventilator Tidal Volume 400 Setting Ventilator Tidal Volume 400 Setting Ventilator Tidal Volume 450 Setting Ventilator Tidal Volume 450 Setting Ventilator Tidal Volume 450 Setting Ventilator Tidal Volume 450 Setting Ventilator Tidal Volume 450 Setting Ventilator Tidal Volume 450 Setting Ventilator Tidal Volume 450 Setting Ventilator Tidal Volume 450 Setting Ventilator Tidal Volume 450 Setting Ventilator Tidal Volume 450 Setting Ventilator Respiratory Rate 16 Setting Ventilator Respiratory Rate 16 Setting Ventilator Respiratory Rate 16 Setting Ventilator Respiratory Rate 16 Setting Ventilator Respiratory Rate 16 Setting Ventilator Respiratory Rate 16 Setting Ventilator Respiratory Rate 16 Setting Ventilator Respiratory Rate 16 Setting Ventilator Respiratory Rate 16 Setting Ventilator Respiratory Rate 16 Setting Ventilator Respiratory Rate 16 Setting Ventilator Respiratory Rate 16 Setting Actual Respiratory Rate 21 Actual Respiratory Rate 18 Actual Respiratory Rate 20 Actual Respiratory Rate 21 Actual Respiratory Rate 20 Actual Respiratory Rate 16 Actual Respiratory Rate 16 Actual Respiratory Rate 16 Actual Respiratory Rate 16 Actual Respiratory Rate 16 Actual Respiratory Rate 16 Positive End Expiratory 5 Pressure Positive End Expiratory 5 Pressure Positive End Expiratory 5 Pressure Positive End Expiratory 5 Pressure Positive End Expiratory 5 Pressure Positive End Expiratory 5 Pressure Positive End Expiratory 5 Pressure Positive End Expiratory 5 Pressure Positive End Expiratory 5 Pressure Positive End Expiratory 5 Pressure Positive End Expiratory 5 Pressure Positive End Expiratory 5 Pressure Peak Inspiratory Airway 19 Pressure Peak Inspiratory Airway 19 Pressure Peak Inspiratory Airway 25 Pressure Peak Inspiratory Airway 24 Pressure Peak Inspiratory Airway 22 Pressure Peak Inspiratory Airway 25 Pressure Peak Inspiratory Airway 25 Pressure Peak Inspiratory Airway 30 Pressure Peak Inspiratory Airway 30 Pressure Peak Inspiratory Airway 20 Pressure Peak Inspiratory Airway 20 Pressure Results - Laboratory Findings CBC and BMP: 06/25/17 09:43 06/25/17 09:43 ABG ABG pH 7.38 pH Units (7.32-7.45) 06/25/17 05:34 ABG pCO2 69 mmHg (35-45) H 06/25/17 05:34 ABG pO2 77 mmHg (85-104) L 06/25/17 05:34 ABG O2 Saturation 94 % (95-98) L 06/25/17 05:34 PT/INR, D-dimer D-Dimer 1254 ng/mLFEU (0-500) H 06/23/17 10:12 Abnormal lab findings: Abnormal lab results WBC 15.8 K/mcL (4.3-11.1) H 06/25/17 02:32 RBC 3.77 M/mcL (3.82-4.97) L 06/25/17 02:32 Hgb 11.1 g/dL (11.5-15.4) L 06/25/17 02:32 MCHC 31.3 g/dL (31.6-35.5) L 06/25/17 02:32 RDW 14.8 % (11.5-14.5) H 06/25/17 02:32 Neutrophils # 14.8 K/mcL (1.6-8.9) H 06/25/17 02:32 Lymphocytes # 0.4 K/mcL (0.6-4.6) L 06/25/17 02:32 D-Dimer 1254 ng/mLFEU (0-500) H 06/23/17 10:12 ABG pCO2 69 mmHg (35-45) H 06/25/17 05:34 ABG pO2 77 mmHg (85-104) L 06/25/17 05:34 ABG HCO3 40 mEq/L (21-27) H 06/25/17 05:34 ABG Total CO2 43 mEq/L (20-26) H 06/25/17 05:34 ABG O2 Saturation 94 % (95-98) L 06/25/17 05:34 ABG Base Excess 12 mEq/L (-2 to 3) H 06/25/17 05:34 VBG pH 7.23 pH Units (7.32-7.42) L 06/23/17 10:24 VBG pCO2 91 mmHg (41-51) H* 06/23/17 10:24 VBG pO2 135 mmHg (25-50) H 06/23/17 10:24 VBG HCO3 38 mEq/L (21-27) H 06/23/17 10:24 Potassium 3.3 mEq/L (3.5-5.1) L 06/25/17 02:32 Chloride 97 mEq/L (98-107) L 06/25/17 02:32 Carbon Dioxide 33 mEq/L (23-29) H 06/25/17 02:32 BUN 25 mg/dL (8-23) H 06/25/17 02:32 BUN/Creatinine Ratio 30 (6-26) H 06/25/17 02:32 Glucose 130 mg/dL (70-105) H 06/25/17 02:32 POC Glucose 124 (58-89) H 06/24/17 22:44 B-Natriuretic Peptide 103 pg/mL (Less than 100) H 06/23/17 10:08 HDL Cholesterol 62 mg/dL (40-59) H 06/24/17 04:33 Vancomycin Trough 14 mcg/mL (5-10) H 06/25/17 00:25 - Microbiology Findings Microbiology Findings: Microbiology, Last 48 Hours 06/23/17 22:45 Sputum Culture - Preliminary Sputum Gram Negative Darren 06/24/17 01:58 Legionella Antigen - Final Urine,Clean Catch Streptococcus pneumoniae Antigen (M - Final - Clinical Findings Intake & Output: Intake & Output 06/24/17 06/25/17 06/25/17 23:59 07:59 15:59 Intake Total 300 / 300 450 / 450 100 / 100 Output Total 225 / 225 150 / 150 Balance 75 / 75 300 / 300 100 / 100 Weight 92 kg Consult Discharge Plan - Plan Referrals: Dion Whitman MD [Primary Care Provider] - <Ferdinand Santillan Tanisha - Last Filed: 06/25/17 15:18> Date of Encounter: 06/25/17 Objective PUL Vital signs: Last Vital Signs Temp 98.7 F 06/25/17 08:00 Pulse 113 06/25/17 14:00 Resp 26 06/25/17 14:00 BP 106/62 06/25/17 14:00 Pulse Ox 94 06/25/17 14:00 Ventilator Settings Ventilator Settings: Ventilator Settings, Last 8 Hours Ventilator Mode VC+ Ventilator Mode VC+ Ventilator Mode VC+ Ventilator Mode VC+ Ventilator Mode VC+ Ventilator Mode VC+ Ventilator Mode VC+ Ventilator Mode VC+ Ventilator Tidal Volume 400 Setting Ventilator Tidal Volume 400 Setting Ventilator Tidal Volume 400 Setting Ventilator Tidal Volume 400 Setting Ventilator Tidal Volume 400 Setting Ventilator Tidal Volume 400 Setting Ventilator Tidal Volume 450 Setting Ventilator Tidal Volume 450 Setting Ventilator Respiratory Rate 16 Setting Ventilator Respiratory Rate 16 Setting Ventilator Respiratory Rate 16 Setting Ventilator Respiratory Rate 16 Setting Ventilator Respiratory Rate 16 Setting Ventilator Respiratory Rate 16 Setting Ventilator Respiratory Rate 16 Setting Ventilator Respiratory Rate 16 Setting Actual Respiratory Rate 26 Actual Respiratory Rate 28 Actual Respiratory Rate 20 Actual Respiratory Rate 20 Actual Respiratory Rate 21 Actual Respiratory Rate 18 Actual Respiratory Rate 20 Actual Respiratory Rate 21 Positive End Expiratory 5 Pressure Positive End Expiratory 5 Pressure Positive End Expiratory 5 Pressure Positive End Expiratory 5 Pressure Positive End Expiratory 5 Pressure Positive End Expiratory 5 Pressure Positive End Expiratory 5 Pressure Positive End Expiratory 5 Pressure Peak Inspiratory Airway 23 Pressure Peak Inspiratory Airway 23 Pressure Peak Inspiratory Airway 21 Pressure Peak Inspiratory Airway 25 Pressure Peak Inspiratory Airway 19 Pressure Peak Inspiratory Airway 19 Pressure Peak Inspiratory Airway 25 Pressure Peak Inspiratory Airway 24 Pressure Results - Laboratory Findings CBC and BMP: 06/25/17 09:43 06/25/17 09:43 ABG ABG pH 7.38 pH Units (7.32-7.45) 06/25/17 05:34 ABG pCO2 69 mmHg (35-45) H 06/25/17 05:34 ABG pO2 77 mmHg (85-104) L 06/25/17 05:34 ABG O2 Saturation 94 % (95-98) L 06/25/17 05:34 PT/INR, D-dimer D-Dimer 1254 ng/mLFEU (0-500) H 06/23/17 10:12 Abnormal lab findings: Abnormal lab results WBC 14.6 K/mcL (4.3-11.1) H 06/25/17 09:43 Hgb 11.2 g/dL (11.5-15.4) L 06/25/17 09:43 MCHC 30.4 g/dL (31.6-35.5) L 06/25/17 09:43 RDW 14.8 % (11.5-14.5) H 06/25/17 09:43 Neutrophils # 13.7 K/mcL (1.6-8.9) H 06/25/17 09:43 Lymphocytes # 0.4 K/mcL (0.6-4.6) L 06/25/17 09:43 D-Dimer 1254 ng/mLFEU (0-500) H 06/23/17 10:12 ABG pCO2 69 mmHg (35-45) H 06/25/17 05:34 ABG pO2 77 mmHg (85-104) L 06/25/17 05:34 ABG HCO3 40 mEq/L (21-27) H 06/25/17 05:34 ABG Total CO2 43 mEq/L (20-26) H 06/25/17 05:34 ABG O2 Saturation 94 % (95-98) L 06/25/17 05:34 ABG Base Excess 12 mEq/L (-2 to 3) H 06/25/17 05:34 VBG pH 7.23 pH Units (7.32-7.42) L 06/23/17 10:24 VBG pCO2 91 mmHg (41-51) H* 06/23/17 10:24 VBG pO2 135 mmHg (25-50) H 06/23/17 10:24 VBG HCO3 38 mEq/L (21-27) H 06/23/17 10:24 Potassium 3.4 mEq/L (3.5-5.1) L 06/25/17 09:43 Chloride 94 mEq/L (98-107) L 06/25/17 09:43 Carbon Dioxide 36 mEq/L (23-29) H 06/25/17 09:43 BUN 28 mg/dL (8-23) H 06/25/17 09:43 BUN/Creatinine Ratio 36 (6-26) H 06/25/17 09:43 Glucose 139 mg/dL (70-105) H 06/25/17 09:43 POC Glucose 124 (58-89) H 06/24/17 22:44 B-Natriuretic Peptide 103 pg/mL (Less than 100) H 06/23/17 10:08 HDL Cholesterol 62 mg/dL (40-59) H 06/24/17 04:33 Vancomycin Trough 14 mcg/mL (5-10) H 06/25/17 00:25 - Microbiology Findings Microbiology Findings: Microbiology, Last 48 Hours 06/25/17 11:35 Sputum Culture - Preliminary Sputum 06/23/17 22:45 Sputum Culture - Preliminary Sputum Gram Negative Darren 06/24/17 01:58 Legionella Antigen - Final Urine,Clean Catch Streptococcus pneumoniae Antigen (M - Final - Clinical Findings Intake & Output: Intake & Output 06/24/17 06/25/17 06/25/17 23:59 07:59 15:59 Intake Total 300 / 300 450 / 450 300 / 300 Output Total 225 / 225 150 / 150 50 / 50 Balance 75 / 75 300 / 300 250 / 250 Weight 92 kg - Attending Attestation I saw and evaluated this patient and my medical decision-making was reviewed with the Resident Physician. I agree with the documented findings, disposition and treatment plan as described except to the extent set forth below. We independently had [id number] contact with the patient I spent of 32 minutes of Critical Care time with this patient. It involved decision making of high complexity to assess, manipulate, and support vital organ system failure and/or to prevent further life threatening deterioration of the patient's condition. The time involved in the performance of separately reportable procedures was not counted toward critical care time. Patient seen and examined at bedside Labs, radiology, chart personally reviewed. Management was reviewed during multidisciplinary critical care rounds. EXECUTIVE ASSISTANT TO GENERAL COUNSEL:Patient is conscious intubated and on minimal sedation following commands Pulm: Patient has multi-focal nodular infiltrates concerns for atypical pneumonia patient is not immuno-suppressed will do repeat sputum culture if her V/Q mismatch not getting better for 24 hrs . TV volume was reduced to lung protective strategy dropped down the FIO2 to 40% patient saturation is borderline Keep SPO2 around 92% Cards: Hemodynamically stable FEN-GI: To continue nutrition as per recs Renal: Labs and output reviewed . Will diurese as tolerated ID: To continue broad spectrum antibiotics for multifocal pneumonia Heme/Onc: Labs reviewed Endo: Glucose Monitored Integ/MSK: Skin Care per routine ICU Nursing Protocol to prevent ulcers. Lines: All lines examined without evidence of infection : Dispo: critically ill CODE: Full code
[2017-06-25] MEDS ORDERED: Bumetanide 1 MG TABLET PO SCH (10:00)
[2017-06-25 10:19] LABS: Basophils % 0.1 %; Hematocrit 36.8 % (35.3-44.9); Hemoglobin 11.2 g/dL (11.5-15.4); Lymphocytes # 0.4 K/mcL (0.6-4.6); Lymphocytes % 2.7 %; Mean Corpuscular HGB Conc 30.4 g/dL (31.6-35.5); Mean Corpuscular Hemoglobin 28.6 pg (28.0-33.3); Mean Corpuscular Volume 94.1 fL (83.0-100.0); Mean Platelet Volume 9.7 fL (9.4-12.4); Monocytes # 0.4 K/mcL (0.0-1.3); Monocytes % 2.7 %; Neutrophils # 13.7 K/mcL (1.6-8.9); Platelet Count 376 K/mcL (140-400); Red Blood Count 3.91 M/mcL (3.82-4.97); Red Cell Distribution Width 14.8 % (11.5-14.5); Segmented Neutrophils % 93.5 %
[2017-06-25 10:33] LABS: BUN/Creatinine Ratio 36 (6-26); Blood Urea Nitrogen 28 mg/dL (8-23); Calcium 9.8 mg/dL (8.6-10.3); Carbon Dioxide 36 mEq/L (23-29); Chloride 94 mEq/L (98-107); Glucose 139 mg/dL (70-105); Osmolality,Calculated 290 (280-300); Potassium 3.4 mEq/L (3.5-5.1); Sodium 136 mEq/L (136-145); eGFR For African Americans > 60 (> 60); eGFR For Non-African Americans > 60 (> 60)
[2017-06-25] MEDS ORDERED: Furosemide 20 MG/2 ML VIAL IVP ONE (10:45)
[2017-06-25] MEDS ORDERED: Bumetanide 1 MG/4 ML VIAL IVP ONE (11:24)
[2017-06-25] MEDS: Levofloxacin 750 MG/150 ML 750 MG/150 ML BAG IVPB SCH (13:26)
[2017-06-25] MEDS: FentaNYL (PF) 1,000 MCG in 0.9 % Sodium Chloride 80 ML IVC SCH (15:06)
[2017-06-26] MEDS: Ipratropium/Albuterol Neb 3 ML IH SCH ×6 (04:02→23:18)
[2017-06-26 04:36] LABS: ABG Base Excess 14 mEq/L (-2 to 3); ABG HCO3 42 mEq/L (21-27); ABG Oxygen Saturation 94 % (95-98); ABG PCO2 66 mmHg (35-45); ABG PH 7.41 pH Units (7.32-7.45); ABG PO2 73 mmHg (85-104); ABG TCO2 44 mEq/L (20-26); Blood Gas Modality PRVC; Blood Gas Respiration Rate 16; Blood Gas VT 400 cc
[2017-06-26] MEDS: *HR* Heparin 5,000 UNIT/ML VIAL SQ SCH ×2 (05:03→17:07)
[2017-06-26] MEDS: MethylPREDNISolone 40 MG/ML VIAL IVP SCH ×3 (05:04→23:32)
[2017-06-26] MEDS: Dexmedetomidine HCl 400 MCG/100 ML MLS IVC SCH ×3 (05:19→22:30)
[2017-06-26 05:52] LABS: Basophils % 0.1 %; Hematocrit 37.1 % (35.3-44.9); Hemoglobin 11.7 g/dL (11.5-15.4); Immature Granulocytes % 1.6 % (0-4); Immature Platelets 2.6 % (1.1-6.1); Lymphocytes # 0.5 K/mcL (0.6-4.6); Lymphocytes % 4.2 %; Mean Corpuscular HGB Conc 31.5 g/dL (31.6-35.5); Mean Corpuscular Hemoglobin 29.2 pg (28.0-33.3); Mean Corpuscular Volume 92.5 fL (83.0-100.0); Mean Platelet Volume 9.7 fL (9.4-12.4); Monocytes # 0.4 K/mcL (0.0-1.3); Monocytes % 3.1 %; Neutrophils # 10.2 K/mcL (1.6-8.9); Platelet Count 361 K/mcL (140-400); Red Blood Count 4.01 M/mcL (3.82-4.97); Red Cell Distribution Width 14.9 % (11.5-14.5)
[2017-06-26 06:22] LABS: BUN/Creatinine Ratio 43 (6-26); Blood Urea Nitrogen 35 mg/dL (8-23); Calcium 9.5 mg/dL (8.6-10.3); Carbon Dioxide 38 mEq/L (23-29); Chloride 95 mEq/L (98-107); Glucose 175 mg/dL (70-105); Osmolality,Calculated 300 (280-300); Potassium 2.9 mEq/L (3.5-5.1); Sodium 139 mEq/L (136-145); eGFR For African Americans > 60 (> 60); eGFR For Non-African Americans > 60 (> 60)
--- NOTE | 2017-06-26 07:03 | Electrocardiograph Report ---
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
--- NOTE | 2017-06-26 07:06 | Electrocardiograph Report ---
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
[2017-06-26] MEDS: Piperacillin/Tazobactam 3.375 GM in 0.9 % Sodium Chloride Mini Bag 100 ML IVPB SCH ×2 (07:10→15:03)
[2017-06-26] MEDS: Pantoprazole 40 MG VIAL IVP SCH (07:18)
[2017-06-26] MEDS: Potassium Chloride Elixir 20 MEQ/15 ML UDC PO SCH (07:18)
[2017-06-26] MEDS: Lacri-Lube 3.5 GM TUBE BOTH EYES SCH ×5 (07:18→23:24)
[2017-06-26] MEDS: Aspirin 81 MG TAB.CHEW PO SCH (07:18)
[2017-06-26] MEDS: Chlorhexidine Rinse 15 ML MOUTHWASH MM SCH ×2 (07:18→20:29)
--- NOTE | 2017-06-26 09:49 | Pulmonology Progress Note ---
Date of Encounter: 06/26/17 Time of Encounter: 09:10 Assessment and Plan (1) Acute on chronic respiratory failure with hypercapnia Current Visit: Yes Status: Acute Acute on Chronic hyercapnic respiratory failure associated with hypoxia secondary to COPD exacerbation and H influenza pneumonia . Patient failed SBT will try diuresis and attempt SBT tomorrow morning . (2) Pneumonia Current Visit: Yes Status: Acute Will change Zosyn to Ceftriaxone as Sputum grows H influenza . Qualifiers: Pneumonia type: due to Haemophilus influenzae Laterality: unspecified laterality Lung location: unspecified part of lung Qualified Code(s): J14 - Pneumonia due to Hemophilus influenzae (3) COPD exacerbation Current Visit: Yes Status: Acute To continue the bronchodilators and steroids (4) DVT prophylaxis Current Visit: Yes Status: Acute To continue the current regimen . Subjective Principal diagnosis: COPD exacerbation Interval history: Patient is completely awake following commands is not aware that she is doing SBT , doesnt have any complaints Objective PUL Vital signs: Last Vital Signs Temp 98.8 F 06/26/17 07:30 Pulse 98 06/26/17 09:00 Resp 22 06/26/17 09:39 BP 150/88 06/26/17 09:39 Pulse Ox 94 06/26/17 09:39 Auscultation: bilateral: diminished breath sounds (basilar diminished breadth sounds ), wheezes (scattered wheezes ) Cardiovascular: regular rate and rhythm Ventilator Settings Ventilator Settings: Ventilator Settings, Last 8 Hours Ventilator Mode CPAP Ventilator Mode CPAP Ventilator Mode CPAP Ventilator Mode CPAP Ventilator Mode CPAP Ventilator Mode CPAP Ventilator Mode VC+ Ventilator Mode VC+ Ventilator Mode VC+ Ventilator Mode VC+ Ventilator Mode VC+ Ventilator Mode VC+ Ventilator Mode VC+ Ventilator Mode VC+ Ventilator Tidal Volume 400 Setting Ventilator Tidal Volume 400 Setting Ventilator Tidal Volume 400 Setting Ventilator Tidal Volume 400 Setting Ventilator Tidal Volume 400 Setting Ventilator Tidal Volume 400 Setting Ventilator Tidal Volume 400 Setting Ventilator Tidal Volume 400 Setting Ventilator Respiratory Rate 16 Setting Ventilator Respiratory Rate 16 Setting Ventilator Respiratory Rate 16 Setting Ventilator Respiratory Rate 16 Setting Ventilator Respiratory Rate 16 Setting Ventilator Respiratory Rate 16 Setting Ventilator Respiratory Rate 16 Setting Ventilator Respiratory Rate 16 Setting Ventilator Respiratory Rate 16 Setting Ventilator Respiratory Rate 16 Setting Actual Respiratory Rate 25 Actual Respiratory Rate 27 Actual Respiratory Rate 26 Actual Respiratory Rate 27 Actual Respiratory Rate 26 Actual Respiratory Rate 23 Actual Respiratory Rate 20 Actual Respiratory Rate 20 Actual Respiratory Rate 23 Actual Respiratory Rate 23 Actual Respiratory Rate 24 Actual Respiratory Rate 24 Actual Respiratory Rate 24 Positive End Expiratory 5 Pressure Positive End Expiratory 5 Pressure Positive End Expiratory 5 Pressure Positive End Expiratory 5 Pressure Positive End Expiratory 5 Pressure Positive End Expiratory 5 Pressure Positive End Expiratory 5 Pressure Positive End Expiratory 5 Pressure Positive End Expiratory 5 Pressure Positive End Expiratory 5 Pressure Positive End Expiratory 5 Pressure Positive End Expiratory 5 Pressure Positive End Expiratory 5 Pressure Positive End Expiratory 5 Pressure Peak Inspiratory Airway 11 Pressure Peak Inspiratory Airway 11 Pressure Peak Inspiratory Airway 11 Pressure Peak Inspiratory Airway 12 Pressure Peak Inspiratory Airway 12 Pressure Peak Inspiratory Airway 11 Pressure Peak Inspiratory Airway 18 Pressure Peak Inspiratory Airway 18 Pressure Peak Inspiratory Airway 21 Pressure Peak Inspiratory Airway 21 Pressure Peak Inspiratory Airway 19 Pressure Peak Inspiratory Airway 14 Pressure Peak Inspiratory Airway 18 Pressure Results - Laboratory Findings CBC and BMP: 06/26/17 Unknown 06/26/17 13:37 ABG ABG pH 7.41 pH Units (7.32-7.45) 06/26/17 04:31 ABG pCO2 66 mmHg (35-45) H 06/26/17 04:31 ABG pO2 73 mmHg (85-104) L 06/26/17 04:31 ABG O2 Saturation 94 % (95-98) L 06/26/17 04:31 PT/INR, D-dimer D-Dimer 1254 ng/mLFEU (0-500) H 06/23/17 10:12 Abnormal lab findings: Abnormal lab results WBC 11.2 K/mcL (4.3-11.1) H 06/26/17 Unknown MCHC 31.5 g/dL (31.6-35.5) L 06/26/17 Unknown RDW 14.9 % (11.5-14.5) H 06/26/17 Unknown Neutrophils # 10.2 K/mcL (1.6-8.9) H 06/26/17 Unknown Lymphocytes # 0.5 K/mcL (0.6-4.6) L 06/26/17 Unknown D-Dimer 1254 ng/mLFEU (0-500) H 06/23/17 10:12 ABG pCO2 66 mmHg (35-45) H 06/26/17 04:31 ABG pO2 73 mmHg (85-104) L 06/26/17 04:31 ABG HCO3 42 mEq/L (21-27) H 06/26/17 04:31 ABG Total CO2 44 mEq/L (20-26) H 06/26/17 04:31 ABG O2 Saturation 94 % (95-98) L 06/26/17 04:31 ABG Base Excess 14 mEq/L (-2 to 3) H 06/26/17 04:31 VBG pH 7.23 pH Units (7.32-7.42) L 06/23/17 10:24 VBG pCO2 91 mmHg (41-51) H* 06/23/17 10:24 VBG pO2 135 mmHg (25-50) H 06/23/17 10:24 VBG HCO3 38 mEq/L (21-27) H 06/23/17 10:24 Potassium 2.9 mEq/L (3.5-5.1) L 06/26/17 05:31 Chloride 95 mEq/L (98-107) L 06/26/17 05:31 Carbon Dioxide 38 mEq/L (23-29) H 06/26/17 05:31 BUN 35 mg/dL (8-23) H 06/26/17 05:31 BUN/Creatinine Ratio 43 (6-26) H 06/26/17 05:31 Glucose 175 mg/dL (70-105) H 06/26/17 05:31 POC Glucose 142 (58-89) H 06/26/17 00:30 B-Natriuretic Peptide 103 pg/mL (Less than 100) H 06/23/17 10:08 HDL Cholesterol 62 mg/dL (40-59) H 06/24/17 04:33 Vancomycin Trough 14 mcg/mL (5-10) H 06/25/17 00:25 - Microbiology Findings Microbiology Findings: Microbiology, Last 48 Hours 06/23/17 22:45 Sputum Culture - Preliminary Sputum Gram Negative Darren 06/25/17 11:35 Sputum Culture - Preliminary Sputum - Clinical Findings Intake & Output: Intake & Output 06/25/17 06/26/17 06/26/17 23:59 07:59 15:59 Intake Total 843 / 843 300 / 300 200 / 200 Output Total 675 / 675 250 / 250 Balance 168 / 168 50 / 50 200 / 200 Weight 90.3 kg Consult Discharge Plan - Plan Referrals: Dion Whitman MD [Primary Care Provider] -
[2017-06-26 11:03] LABS: ABG Base Excess 13 mEq/L (-2 to 3); ABG HCO3 43 mEq/L (21-27); ABG Oxygen Saturation 98 % (95-98); ABG PCO2 82 mmHg (35-45); ABG PH 7.33 pH Units (7.32-7.45); ABG PO2 124 mmHg (85-104); ABG TCO2 45 mEq/L (20-26); Blood Gas Modality CPAP/PS; Blood Gas Pressure Support 5 cm H2O
[2017-06-26] MEDS: FentaNYL (PF) 1,000 MCG in 0.9 % Sodium Chloride 80 ML IVC SCH (11:22)
[2017-06-26 12:09] LABS: Basophils % 0.2 %; Hematocrit 37.6 % (35.3-44.9); Immature Granulocytes % 1.9 % (0-4); Lymphocytes # 0.5 K/mcL (0.6-4.6); Lymphocytes % 4.4 %; Mean Corpuscular HGB Conc 31.9 g/dL (31.6-35.5); Mean Corpuscular Hemoglobin 29.9 pg (28.0-33.3); Mean Corpuscular Volume 93.5 fL (83.0-100.0); Mean Platelet Volume 9.5 fL (9.4-12.4); Monocytes # 0.8 K/mcL (0.0-1.3); Monocytes % 6.3 %; Neutrophils # 10.6 K/mcL (1.6-8.9); Platelet Count 335 K/mcL (140-400); Red Blood Count 4.02 M/mcL (3.82-4.97); Red Cell Distribution Width 14.9 % (11.5-14.5); Segmented Neutrophils % 87.2 %
[2017-06-26] MEDS: Levofloxacin 750 MG/150 ML 750 MG/150 ML BAG IVPB SCH (13:12)
[2017-06-26 15:00] LABS: BUN/Creatinine Ratio 47 (6-26); Blood Urea Nitrogen 37 mg/dL (8-23); Calcium 9.4 mg/dL (8.6-10.3); Carbon Dioxide 37 mEq/L (23-29); Chloride 98 mEq/L (98-107); Glucose 152 mg/dL (70-105); Magnesium 1.9 mg/dL (1.6-2.6); Osmolality,Calculated 302 (280-300); Phosphorous 2.8 mg/dL (2.7-4.5); Potassium 3.7 mEq/L (3.5-5.1); Sodium 140 mEq/L (136-145); eGFR For African Americans > 60 (> 60); eGFR For Non-African Americans > 60 (> 60)
[2017-06-26] MEDS ORDERED: Potassium Phosphate 44 MEQ in 0.9 % Sodium Chloride 250 ML IVPB ONE (16:08)
[2017-06-26] MEDS: cefTRIAXone 1,000 MG in Water for inj. (sterile) 20 ML 10 ML IVP SCH (20:29)
[2017-06-26] MEDS ORDERED: Furosemide 40 MG/4 ML VIAL IVP ONE (23:00)
[2017-06-27] MEDS: Lacri-Lube 3.5 GM TUBE BOTH EYES SCH ×3 (02:12→11:14)
[2017-06-27 03:47] LABS: Magnesium 1.7 mg/dL (1.6-2.6)
[2017-06-27] MEDS: Ipratropium/Albuterol Neb 3 ML IH SCH ×5 (04:02→20:41)
[2017-06-27 04:29] LABS: Mycoplasma pneumoniae IgG 0.06 U/L (<=0.09)
[2017-06-27 04:31] LABS: Basophils # 0.1 K/mcL (0.0-0.2); Basophils % 0.4 %; Hematocrit 39.7 % (35.3-44.9); Hemoglobin 12.5 g/dL (11.5-15.4); Immature Granulocytes % 3.7 % (0-4); Lymphocytes # 0.8 K/mcL (0.6-4.6); Lymphocytes % 5.7 %; Mean Corpuscular HGB Conc 31.5 g/dL (31.6-35.5); Mean Corpuscular Hemoglobin 29.8 pg (28.0-33.3); Mean Corpuscular Volume 94.7 fL (83.0-100.0); Mean Platelet Volume 9.7 fL (9.4-12.4); Monocytes % 7.4 %; Neutrophils # 11.5 K/mcL (1.6-8.9); Platelet Count 361 K/mcL (140-400); Red Blood Count 4.19 M/mcL (3.82-4.97); Segmented Neutrophils % 82.8 %
[2017-06-27 04:34] LABS: BUN/Creatinine Ratio 45 (6-26); Blood Urea Nitrogen 38 mg/dL (8-23); Calcium 9.1 mg/dL (8.6-10.3); Carbon Dioxide 37 mEq/L (23-29); Chloride 97 mEq/L (98-107); Glucose 187 mg/dL (70-105); Osmolality,Calculated 308 (280-300); Sodium 142 mEq/L (136-145); eGFR For African Americans > 60 (> 60); eGFR For Non-African Americans > 60 (> 60)
[2017-06-27 04:40] LABS: ABG Base Excess 16 mEq/L (-2 to 3); ABG HCO3 44 mEq/L (21-27); ABG Oxygen Saturation 91 % (95-98); ABG PCO2 67 mmHg (35-45); ABG PH 7.42 pH Units (7.32-7.45); ABG PO2 63 mmHg (85-104); ABG TCO2 46 mEq/L (20-26); Blood Gas Modality VC; Blood Gas Respiration Rate 16; Blood Gas VT 400 cc
[2017-06-27] MEDS: *HR* Heparin 5,000 UNIT/ML VIAL SQ SCH ×2 (05:21→17:01)
--- NOTE | 2017-06-27 06:48 | Pulmonology Progress Note ---
<Aris Lopez - Last Filed: 06/27/17 16:52> Date of Encounter: 06/27/17 Time of Encounter: 08:00 Assessment and Plan (1) Acute on chronic respiratory failure with hypercapnia Current Visit: Yes Status: Acute Extubated successfully this AM -- Pt is H. influenzae positive and is receiving Rocephin (through Sunday); Levaquin discontinued -- continue all other measures (2) Sepsis Current Visit: No Status: Acute Qualifiers: Sepsis type: sepsis due to unspecified organism Qualified Code(s): A41.9 - Sepsis, unspecified organism (3) COPD exacerbation Current Visit: Yes Status: Acute (4) Pneumonia Current Visit: Yes Status: Acute Qualifiers: Pneumonia type: due to unspecified organism Laterality: bilateral Lung location: unspecified part of lung Qualified Code(s): J18.9 - Pneumonia, unspecified organism (5) Elevated troponin Current Visit: Yes Status: Resolved (6) DVT prophylaxis Current Visit: Yes Status: Acute subcutaneous heparin Subjective Principal diagnosis: COPD exacerbation Interval history: ABGs this morning continues to stabilize with trajectory towards normal. Passed spontaneous breathing trial this morning and was extubated successfully. Continues to be stable and has no acute complaints. Patient will remain on BiPAP for at least 4 hours to ensure continued respiratory stability. Objective PUL Vital signs: Last Vital Signs Temp 98.9 F 06/27/17 00:09 Pulse 109 06/27/17 06:00 Resp 20 06/27/17 06:00 BP 132/75 06/27/17 06:00 Pulse Ox 90 06/27/17 06:00 CONSTITUTIONAL: Alert and oriented X3, well-nourished, well appearing, in no apparent distress, BiPAP mask in place, patient conversational HEAD: Normocephalic; atraumatic EYES: PER, no scleral icterus, no drainage, no conjunctival injection RESP: NRD without use of accessory musculature, CTA b/l & did not hear any wheezes/rales/rhonchi CARD: Regular rhythm, mild tachycardia without murmurs, rubs, or gallop ABD: grossly normal, soft, non-tender, no guarding/distention/rigidity SKIN: normal appearance, no pallor/diaphoresis,mottling,jaundice,cyanosis EXT: Rad pulses 2+ and symmetrical; no lateralizing edema; no other lesions seen Ventilator Settings Ventilator Settings: Ventilator Settings, Last 8 Hours Ventilator Mode CPAP Ventilator Mode CPAP Ventilator Mode CPAP Ventilator Mode VC+ Ventilator Mode VC+ Ventilator Mode VC+ Ventilator Mode VC+ Ventilator Mode VC+ Ventilator Mode VC+ Ventilator Mode VC+ Ventilator Mode VC+ Ventilator Mode VC+ Ventilator Mode VC+ Ventilator Tidal Volume 400 Setting Ventilator Tidal Volume 400 Setting Ventilator Tidal Volume 400 Setting Ventilator Tidal Volume 400 Setting Ventilator Tidal Volume 400 Setting Ventilator Tidal Volume 400 Setting Ventilator Tidal Volume 400 Setting Ventilator Tidal Volume 400 Setting Ventilator Tidal Volume 400 Setting Ventilator Tidal Volume 400 Setting Ventilator Tidal Volume 400 Setting Ventilator Tidal Volume 400 Setting Ventilator Tidal Volume 400 Setting Ventilator Respiratory Rate 16 Setting Ventilator Respiratory Rate 16 Setting Ventilator Respiratory Rate 16 Setting Ventilator Respiratory Rate 16 Setting Ventilator Respiratory Rate 16 Setting Ventilator Respiratory Rate 16 Setting Ventilator Respiratory Rate 16 Setting Ventilator Respiratory Rate 16 Setting Ventilator Respiratory Rate 16 Setting Ventilator Respiratory Rate 16 Setting Ventilator Respiratory Rate 16 Setting Actual Respiratory Rate 20 Actual Respiratory Rate 26 Actual Respiratory Rate 23 Actual Respiratory Rate 26 Actual Respiratory Rate 22 Actual Respiratory Rate 21 Actual Respiratory Rate 25 Actual Respiratory Rate 22 Actual Respiratory Rate 22 Actual Respiratory Rate 25 Actual Respiratory Rate 23 Actual Respiratory Rate 22 Positive End Expiratory 5 Pressure Positive End Expiratory 5 Pressure Positive End Expiratory 5 Pressure Positive End Expiratory 5 Pressure Positive End Expiratory 5 Pressure Positive End Expiratory 5 Pressure Positive End Expiratory 5 Pressure Positive End Expiratory 5 Pressure Positive End Expiratory 5 Pressure Positive End Expiratory 5 Pressure Positive End Expiratory 5 Pressure Positive End Expiratory 5 Pressure Positive End Expiratory 5 Pressure Peak Inspiratory Airway 16 Pressure Peak Inspiratory Airway 16 Pressure Peak Inspiratory Airway 16 Pressure Peak Inspiratory Airway 15 Pressure Peak Inspiratory Airway 12 Pressure Peak Inspiratory Airway 12 Pressure Peak Inspiratory Airway 13 Pressure Peak Inspiratory Airway 17 Pressure Peak Inspiratory Airway 21 Pressure Peak Inspiratory Airway 13 Pressure Peak Inspiratory Airway 12 Pressure Peak Inspiratory Airway 15 Pressure Results - Laboratory Findings CBC and BMP: 06/27/17 02:05 06/27/17 11:51 ABG ABG pH 7.42 pH Units (7.32-7.45) 06/27/17 04:36 ABG pCO2 67 mmHg (35-45) H 06/27/17 04:36 ABG pO2 63 mmHg (85-104) L 06/27/17 04:36 ABG O2 Saturation 91 % (95-98) L 06/27/17 04:36 PT/INR, D-dimer D-Dimer 1254 ng/mLFEU (0-500) H 06/23/17 10:12 Abnormal lab findings: Abnormal lab results WBC 13.8 K/mcL (4.3-11.1) H 06/27/17 02:05 MCHC 31.5 g/dL (31.6-35.5) L 06/27/17 02:05 RDW 15.0 % (11.5-14.5) H 06/27/17 02:05 Neutrophils # 11.5 K/mcL (1.6-8.9) H 06/27/17 02:05 D-Dimer 1254 ng/mLFEU (0-500) H 06/23/17 10:12 ABG pCO2 67 mmHg (35-45) H 06/27/17 04:36 ABG pO2 63 mmHg (85-104) L 06/27/17 04:36 ABG HCO3 44 mEq/L (21-27) H 06/27/17 04:36 ABG Total CO2 46 mEq/L (20-26) H 06/27/17 04:36 ABG O2 Saturation 91 % (95-98) L 06/27/17 04:36 ABG Base Excess 16 mEq/L (-2 to 3) H 06/27/17 04:36 VBG pH 7.23 pH Units (7.32-7.42) L 06/23/17 10:24 VBG pCO2 91 mmHg (41-51) H* 06/23/17 10:24 VBG pO2 135 mmHg (25-50) H 06/23/17 10:24 VBG HCO3 38 mEq/L (21-27) H 06/23/17 10:24 Chloride 97 mEq/L (98-107) L 06/27/17 03:05 Carbon Dioxide 37 mEq/L (23-29) H 06/27/17 03:05 BUN 38 mg/dL (8-23) H 06/27/17 03:05 BUN/Creatinine Ratio 45 (6-26) H 06/27/17 03:05 Glucose 187 mg/dL (70-105) H 06/27/17 03:05 POC Glucose 133 (58-89) H 06/26/17 23:15 Calculated Osmolality 308 (280-300) H 06/27/17 03:05 B-Natriuretic Peptide 103 pg/mL (Less than 100) H 06/23/17 10:08 HDL Cholesterol 62 mg/dL (40-59) H 06/24/17 04:33 Vancomycin Trough 14 mcg/mL (5-10) H 06/25/17 00:25 - Microbiology Findings Microbiology Findings: Microbiology, Last 48 Hours 06/23/17 22:45 Sputum Culture - Final Sputum Haemophilus influenzae 06/25/17 11:35 Sputum Culture - Preliminary Sputum - Clinical Findings Intake & Output: Intake & Output 06/26/17 06/26/17 06/27/17 15:59 23:59 07:59 Intake Total 1670 / 1670 529 / 529 500 / 500 Output Total 150 / 150 200 / 200 2550 / 2550 Balance 1520 / 1520 329 / 329 -2049 / -2049 Weight 92.2 kg Consult Discharge Plan - Plan Referrals: Dion Whitman MD [Primary Care Provider] - <Ferdinand Santillan S - Last Filed: 06/27/17 23:56> Date of Encounter: 06/27/17 Assessment and Plan (1) Acute on chronic respiratory failure with hypercapnia Current Visit: Yes Status: Acute (2) Pneumonia Current Visit: Yes Status: Acute Qualifiers: Pneumonia type: due to Haemophilus influenzae Laterality: unspecified laterality Lung location: unspecified part of lung Qualified Code(s): J14 - Pneumonia due to Hemophilus influenzae (3) COPD exacerbation Current Visit: Yes Status: Acute (4) DVT prophylaxis Current Visit: Yes Status: Acute Objective PUL Vital signs: Last Vital Signs Temp 98.5 F 06/27/17 21:09 Pulse 105 06/27/17 23:00 Resp 20 06/27/17 23:00 BP 151/78 06/27/17 23:00 Pulse Ox 94 06/27/17 23:00 Results - Laboratory Findings CBC and BMP: 06/27/17 02:05 06/27/17 11:51 ABG ABG pH 7.44 pH Units (7.32-7.45) 06/27/17 08:39 ABG pCO2 69 mmHg (35-45) H 06/27/17 08:39 ABG pO2 70 mmHg (85-104) L 06/27/17 08:39 ABG O2 Saturation 93 % (95-98) L 06/27/17 08:39 PT/INR, D-dimer D-Dimer 1254 ng/mLFEU (0-500) H 06/23/17 10:12 Abnormal lab findings: Abnormal lab results WBC 13.8 K/mcL (4.3-11.1) H 06/27/17 02:05 MCHC 31.5 g/dL (31.6-35.5) L 06/27/17 02:05 RDW 15.0 % (11.5-14.5) H 06/27/17 02:05 Neutrophils # 11.5 K/mcL (1.6-8.9) H 06/27/17 02:05 D-Dimer 1254 ng/mLFEU (0-500) H 06/23/17 10:12 ABG pCO2 69 mmHg (35-45) H 06/27/17 08:39 ABG pO2 70 mmHg (85-104) L 06/27/17 08:39 ABG HCO3 47 mEq/L (21-27) H 06/27/17 08:39 ABG Total CO2 49 mEq/L (20-26) H 06/27/17 08:39 ABG O2 Saturation 93 % (95-98) L 06/27/17 08:39 ABG Base Excess 19 mEq/L (-2 to 3) H 06/27/17 08:39 VBG pH 7.23 pH Units (7.32-7.42) L 06/23/17 10:24 VBG pCO2 91 mmHg (41-51) H* 06/23/17 10:24 VBG pO2 135 mmHg (25-50) H 06/23/17 10:24 VBG HCO3 38 mEq/L (21-27) H 06/23/17 10:24 Chloride 93 mEq/L (98-107) L 06/27/17 11:51 Carbon Dioxide 43 mEq/L (23-29) H* 06/27/17 11:51 BUN 33 mg/dL (8-23) H 06/27/17 11:51 BUN/Creatinine Ratio 46 (6-26) H 06/27/17 11:51 Glucose 144 mg/dL (70-105) H 06/27/17 11:51 POC Glucose 133 (58-89) H 06/26/17 23:15 Calculated Osmolality 302 (280-300) H 06/27/17 11:51 B-Natriuretic Peptide 103 pg/mL (Less than 100) H 06/23/17 10:08 HDL Cholesterol 62 mg/dL (40-59) H 06/24/17 04:33 Vancomycin Trough 14 mcg/mL (5-10) H 06/25/17 00:25 - Microbiology Findings Microbiology Findings: Microbiology, Last 48 Hours 06/25/17 11:35 Sputum Culture - Final Sputum 06/23/17 22:45 Sputum Culture - Final Sputum Haemophilus influenzae - Clinical Findings Intake & Output: Intake & Output 06/27/17 06/27/17 06/27/17 07:59 15:59 23:59 Intake Total 750 / 750 960 / 960 370 / 370 Output Total 3150 / 3150 600 / 600 700 / 700 Balance -2400 / -2400 360 / 360 -330 / -330 Weight 92.2 kg - Attending Attestation - Attending Attestation I saw and evaluated this patient and my medical decision-making was reviewed with the Resident Physician. I agree with the documented findings, disposition and treatment plan as described except to the extent set forth below. We independently had [id number] contact with the patient I spent of 33 minutes of Critical Care time with this patient. It involved decision making of high complexity to assess, manipulate, and support vital organ system failure and/or to prevent further life threatening deterioration of the patient's condition. The time involved in the performance of separately reportable procedures was not counted toward critical care time. Patient seen and examined at bedside Labs, radiology, chart personally reviewed. Management was reviewed during multidisciplinary critical care rounds. 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 Cards: Hemodynamically stable FEN-GI: To continue nutrition as per recs Renal: Labs and output reviewed . Will diurese as tolerated ID: H influenzae pneumonia now on ceftraxone , sepsis resolved Heme/Onc: Labs reviewed Endo: Glucose Monitored Integ/MSK: Skin Care per routine ICU Nursing Protocol to prevent ulcers. Lines: All lines examined without evidence of infection : Dispo: critically ill high chance of reintubation CODE: Full code
[2017-06-27] MEDS: Dexmedetomidine HCl 400 MCG/100 ML MLS IVC SCH (07:15)
[2017-06-27] MEDS: Potassium Chloride Elixir 20 MEQ/15 ML UDC PO SCH (07:35)
[2017-06-27] MEDS: Pantoprazole 40 MG VIAL IVP SCH (07:35)
[2017-06-27] MEDS: Chlorhexidine Rinse 15 ML MOUTHWASH MM SCH (07:35)
[2017-06-27] MEDS: MethylPREDNISolone 40 MG/ML VIAL IVP SCH ×3 (07:35→23:39)
[2017-06-27] MEDS: Aspirin 81 MG TAB.CHEW PO SCH (07:35)
[2017-06-27 08:45] LABS: ABG Base Excess 19 mEq/L (-2 to 3); ABG HCO3 47 mEq/L (21-27); ABG Oxygen Saturation 93 % (95-98); ABG PCO2 69 mmHg (35-45); ABG PH 7.44 pH Units (7.32-7.45); ABG PO2 70 mmHg (85-104); ABG TCO2 49 mEq/L (20-26); Blood Gas Modality CPAP/PS; Blood Gas Pressure Support 10 cm H2O
[2017-06-27 12:45] LABS: BUN/Creatinine Ratio 46 (6-26); Blood Urea Nitrogen 33 mg/dL (8-23); Calcium 9.1 mg/dL (8.6-10.3); Carbon Dioxide 43 mEq/L (23-29); Chloride 93 mEq/L (98-107); Glucose 144 mg/dL (70-105); Osmolality,Calculated 302 (280-300); Potassium 4.1 mEq/L (3.5-5.1); Sodium 141 mEq/L (136-145); eGFR For African Americans > 60 (> 60); eGFR For Non-African Americans > 60 (> 60)
[2017-06-27] MEDS: Sennosides/Docusate Sodium TABLET PO SCH ×2 (13:33→20:44)
[2017-06-27] MEDS: Bumetanide 1 MG/4 ML VIAL IVP SCH (17:00)
[2017-06-27] MEDS ORDERED: ALPRAZolam 0.25 MG TABLET PO PRN (20:16)
[2017-06-27] MEDS: cefTRIAXone 1,000 MG in Water for inj. (sterile) 20 ML 10 ML IVP SCH (20:57)
[2017-06-28] MEDS: Ipratropium/Albuterol Neb 3 ML IH SCH ×7 (00:23→23:24)
[2017-06-28 03:51] LABS: BUN/Creatinine Ratio 36 (6-26); Blood Urea Nitrogen 27 mg/dL (8-23); Calcium 9.3 mg/dL (8.6-10.3); Carbon Dioxide 43 mEq/L (23-29); Chloride 89 mEq/L (98-107); Glucose 126 mg/dL (70-105); Magnesium 1.9 mg/dL (1.6-2.6); Osmolality,Calculated 287 (280-300); Phosphorous 3.2 mg/dL (2.7-4.5); Potassium 4.4 mEq/L (3.5-5.1); Sodium 135 mEq/L (136-145); eGFR For African Americans > 60 (> 60); eGFR For Non-African Americans > 60 (> 60)
[2017-06-28] MEDS: Bumetanide 1 MG/4 ML VIAL IVP SCH ×2 (05:25→17:17)
[2017-06-28] MEDS: *HR* Heparin 5,000 UNIT/ML VIAL SQ SCH ×2 (05:26→17:17)
[2017-06-28] MEDS: Aspirin 81 MG TAB.CHEW PO SCH (07:53)
[2017-06-28] MEDS: MethylPREDNISolone 40 MG/ML VIAL IVP SCH ×2 (07:54→15:23)
[2017-06-28] MEDS: Sennosides/Docusate Sodium TABLET PO SCH ×2 (07:54→20:30)
[2017-06-28] MEDS: Potassium Chloride Elixir 20 MEQ/15 ML UDC PO SCH (07:54)
[2017-06-28] MEDS: Pantoprazole 40 MG VIAL IVP SCH (07:54)
--- NOTE | 2017-06-28 09:18 | Pulmonology Progress Note ---
<Aris Lopez - Last Filed: 06/28/17 16:42> Date of Encounter: 06/28/17 Time of Encounter: 09:00 Assessment and Plan (1) Acute on chronic respiratory failure with hypercapnia Current Visit: Yes Status: Acute Extubated successfully this AM -- Pt is H. influenzae positive and is receiving Rocephin (through Sunday); Levaquin discontinued -- continue all other measures -- Pt has been progressively hypertensive; will restart Cozaar (2) Sepsis Current Visit: No Status: Acute Qualifiers: Sepsis type: sepsis due to unspecified organism Qualified Code(s): A41.9 - Sepsis, unspecified organism (3) COPD exacerbation Current Visit: Yes Status: Acute Current smoker with recurrent exacerbations; started patient on Buprioprion -- Will obtain BiPAP qualifation -- Added Symbicort (4) Pneumonia Current Visit: Yes Status: Acute Qualifiers: Pneumonia type: due to unspecified organism Laterality: bilateral Lung location: unspecified part of lung Qualified Code(s): J18.9 - Pneumonia, unspecified organism (5) Elevated troponin Current Visit: Yes Status: Resolved (6) DVT prophylaxis Current Visit: Yes Status: Acute subcutaneous heparin Subjective Principal diagnosis: COPD exacerbation Interval history: Extubated yesterday AM. Subjectively feeling well. Does still have productive cough. In chair at bedside with no respiratory distress. Advanced to soft diet and is tolerating well. Will begin to transition to PO meds. Transfer to tele unit pending available bed. Objective PUL Vital signs: Last Vital Signs Temp 98.3 F 06/28/17 08:38 Pulse 90 06/28/17 06:00 Resp 22 06/28/17 07:41 BP 156/82 06/28/17 06:00 Pulse Ox 95 06/28/17 07:41 CONSTITUTIONAL: Alert and oriented X3, well-nourished, well appearing, in no apparent distress, seated at bedside chair on nasal O2 HEAD: Normocephalic; atraumatic EYES: PER, no scleral icterus, no drainage, no conjunctival injection RESP: NRD without use of accessory musculature, CTA b/l thought distant; did not hear any wheezes/rales/rhonchi CARD: Regular rhythm, mild tachycardia without murmurs, rubs, or gallop ABD: grossly normal, soft, non-tender, no guarding/distention/rigidity SKIN: normal appearance, no pallor/diaphoresis,mottling,jaundice,cyanosis EXT: Rad pulses 2+ and symmetrical; no lateralizing edema; no other lesions seen Results - Laboratory Findings CBC and BMP: 06/27/17 02:05 06/28/17 02:45 ABG ABG pH 7.44 pH Units (7.32-7.45) 06/27/17 08:39 ABG pCO2 69 mmHg (35-45) H 06/27/17 08:39 ABG pO2 70 mmHg (85-104) L 06/27/17 08:39 ABG O2 Saturation 93 % (95-98) L 06/27/17 08:39 PT/INR, D-dimer D-Dimer 1254 ng/mLFEU (0-500) H 06/23/17 10:12 Abnormal lab findings: Abnormal lab results WBC 13.8 K/mcL (4.3-11.1) H 06/27/17 02:05 MCHC 31.5 g/dL (31.6-35.5) L 06/27/17 02:05 RDW 15.0 % (11.5-14.5) H 06/27/17 02:05 Neutrophils # 11.5 K/mcL (1.6-8.9) H 06/27/17 02:05 D-Dimer 1254 ng/mLFEU (0-500) H 06/23/17 10:12 ABG pCO2 69 mmHg (35-45) H 06/27/17 08:39 ABG pO2 70 mmHg (85-104) L 06/27/17 08:39 ABG HCO3 47 mEq/L (21-27) H 06/27/17 08:39 ABG Total CO2 49 mEq/L (20-26) H 06/27/17 08:39 ABG O2 Saturation 93 % (95-98) L 06/27/17 08:39 ABG Base Excess 19 mEq/L (-2 to 3) H 06/27/17 08:39 VBG pH 7.23 pH Units (7.32-7.42) L 06/23/17 10:24 VBG pCO2 91 mmHg (41-51) H* 06/23/17 10:24 VBG pO2 135 mmHg (25-50) H 06/23/17 10:24 VBG HCO3 38 mEq/L (21-27) H 06/23/17 10:24 Sodium 135 mEq/L (136-145) L 06/28/17 02:45 Chloride 89 mEq/L (98-107) L 06/28/17 02:45 Carbon Dioxide 43 mEq/L (23-29) H* 06/28/17 02:45 BUN 27 mg/dL (8-23) H 06/28/17 02:45 BUN/Creatinine Ratio 36 (6-26) H 06/28/17 02:45 Glucose 126 mg/dL (70-105) H 06/28/17 02:45 POC Glucose 128 (58-89) H 06/27/17 11:44 B-Natriuretic Peptide 103 pg/mL (Less than 100) H 06/23/17 10:08 HDL Cholesterol 62 mg/dL (40-59) H 06/24/17 04:33 Vancomycin Trough 14 mcg/mL (5-10) H 06/25/17 00:25 - Microbiology Findings Microbiology Findings: Microbiology, Last 48 Hours 06/25/17 11:35 Sputum Culture - Final Sputum 06/23/17 22:45 Sputum Culture - Final Sputum Haemophilus influenzae - Clinical Findings Intake & Output: Intake & Output 06/27/17 06/28/17 06/28/17 23:59 07:59 15:59 Intake Total 370 / 370 Output Total 700 / 700 900 / 900 900 / 900 Balance -330 / -330 -900 / -900 -900 / -900 Weight 92.5 kg Consult Discharge Plan - Plan Referrals: Dion Whitman MD [Primary Care Provider] - <Ferdinand Santillan - Last Filed: 06/29/17 00:11> Date of Encounter: 06/29/17 Assessment and Plan (1) Acute on chronic respiratory failure with hypercapnia Current Visit: Yes Status: Acute (2) Pneumonia Current Visit: Yes Status: Acute Qualifiers: Pneumonia type: due to Haemophilus influenzae Laterality: unspecified laterality Lung location: unspecified part of lung Qualified Code(s): J14 - Pneumonia due to Hemophilus influenzae (3) COPD exacerbation Current Visit: Yes Status: Acute (4) DVT prophylaxis Current Visit: Yes Status: Acute Objective PUL Vital signs: Last Vital Signs Temp 98.2 F 06/28/17 20:31 Pulse 97 06/28/17 20:31 Resp 20 06/28/17 23:25 BP 153/91 06/28/17 20:31 Pulse Ox 98 06/28/17 23:30 Results - Laboratory Findings CBC and BMP: 06/27/17 02:05 06/28/17 02:45 ABG ABG pH 7.44 pH Units (7.32-7.45) 06/27/17 08:39 ABG pCO2 69 mmHg (35-45) H 06/27/17 08:39 ABG pO2 70 mmHg (85-104) L 06/27/17 08:39 ABG O2 Saturation 93 % (95-98) L 06/27/17 08:39 PT/INR, D-dimer D-Dimer 1254 ng/mLFEU (0-500) H 06/23/17 10:12 Abnormal lab findings: Abnormal lab results WBC 13.8 K/mcL (4.3-11.1) H 06/27/17 02:05 MCHC 31.5 g/dL (31.6-35.5) L 06/27/17 02:05 RDW 15.0 % (11.5-14.5) H 06/27/17 02:05 Neutrophils # 11.5 K/mcL (1.6-8.9) H 06/27/17 02:05 D-Dimer 1254 ng/mLFEU (0-500) H 06/23/17 10:12 ABG pCO2 69 mmHg (35-45) H 06/27/17 08:39 ABG pO2 70 mmHg (85-104) L 06/27/17 08:39 ABG HCO3 47 mEq/L (21-27) H 06/27/17 08:39 ABG Total CO2 49 mEq/L (20-26) H 06/27/17 08:39 ABG O2 Saturation 93 % (95-98) L 06/27/17 08:39 ABG Base Excess 19 mEq/L (-2 to 3) H 06/27/17 08:39 VBG pH 7.23 pH Units (7.32-7.42) L 06/23/17 10:24 VBG pCO2 91 mmHg (41-51) H* 06/23/17 10:24 VBG pO2 135 mmHg (25-50) H 06/23/17 10:24 VBG HCO3 38 mEq/L (21-27) H 06/23/17 10:24 Sodium 135 mEq/L (136-145) L 06/28/17 02:45 Chloride 89 mEq/L (98-107) L 06/28/17 02:45 Carbon Dioxide 43 mEq/L (23-29) H* 06/28/17 02:45 BUN 27 mg/dL (8-23) H 06/28/17 02:45 BUN/Creatinine Ratio 36 (6-26) H 06/28/17 02:45 Glucose 126 mg/dL (70-105) H 06/28/17 02:45 POC Glucose 128 (58-89) H 06/27/17 11:44 B-Natriuretic Peptide 103 pg/mL (Less than 100) H 06/23/17 10:08 HDL Cholesterol 62 mg/dL (40-59) H 06/24/17 04:33 Vancomycin Trough 14 mcg/mL (5-10) H 06/25/17 00:25 - Microbiology Findings Microbiology Findings: Microbiology, Last 48 Hours 06/25/17 11:35 Sputum Culture - Final Sputum - Clinical Findings Intake & Output: Intake & Output 06/28/17 06/28/17 06/29/17 15:59 23:59 07:59 Intake Total 920 / 920 480 / 480 Output Total 1100 / 1100 0 / 0 Balance -180 / -180 480 / 480 - Attending Attestation - Attending Attestation I saw and evaluated this patient and my medical decision-making was reviewed with the Resident Physician. I agree with the documented findings, disposition and treatment plan as described except to the extent set forth below. We independently had [id number] contact with the patient Patient seen and examined at bedside Labs, radiology, chart personally reviewed. Management was reviewed during multidisciplinary critical care rounds. 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 BIPAP at night will need home BIPAP qualification before discharge on discharge she go on duoneb , symbicort follow up in [place] pulmonology in 6-8 weeks Cards: Hemodynamically stable , BP is high will start home dose of Cozaar will see how she tolerates FEN-GI: To continue nutrition as per recs Renal: Labs and output reviewed . Will diurese as tolerated ID: H influenzae pneumonia now on ceftraxone , sepsis resolved Heme/Onc: Labs reviewed Endo: Glucose Monitored Integ/MSK: Skin Care per routine ICU Nursing Protocol to prevent ulcers. Lines: All lines examined without evidence of infection : Dispo: Patient is clinically stable can be transferred to telemetry . CODE: Full code
[2017-06-28] MEDS ORDERED: BuPROPion SR (12 HR) 150 MG TABLET PO SCH (09:30)
[2017-06-28] MEDS ORDERED: Budesonide/Formoterol 80/4.5 MDI IH SCH (11:45)
[2017-06-28] MEDS ORDERED: Albuterol 2.5 MG/3 ML NEBULIZER IH PRN (18:32)
[2017-06-28] MEDS ORDERED: Naloxone 0.4 MG/ML INJ IVP PRN (18:32)
[2017-06-28] MEDS ORDERED: *HR* HYDROcodone/Acet 5/325 mg TABLET PO PRN (18:32)
[2017-06-28] MEDS ORDERED: ALPRAZolam 0.25 MG TABLET PO PRN (18:32)
[2017-06-28] MEDS ORDERED: Ibuprofen 600 MG TABLET PO PRN (18:32)
[2017-06-28] MEDS: cefTRIAXone 1,000 MG in Water for inj. (sterile) 20 ML 10 ML IVP SCH (20:19)
[2017-06-28] MEDS: Budesonide/Formoterol 80/4.5 MDI IH SCH (20:26)
[2017-06-29] MEDS: MethylPREDNISolone 40 MG/ML VIAL IVP SCH ×2 (01:06→09:22)
[2017-06-29 03:26] LABS: Adenovirus F 40/41 PCR Not detected (Not detect); Astrovirus PCR Not detected (Not detect); C.difficile Toxin A/B by PCR Not detected (Not detect); Campylobacter by PCR Not detected (Not detect); Cryptosporidium by PCR Not detected (Not detect); Cyclospora cayetanensis PCR Not detected (Not detect); E. coli O157 by PCR Not detected (Not detect); Entamoeba histolytica PCR Not detected (Not detect); Enteroaggregative E.coli(EAEC) Not detected (Not detect); Enteropathogenic E.coli(EPEC) Not detected (Not detect); Enterotoxigenic E.coli (ETEC) Not detected (Not detect); Giardia lamblia PCR Not detected (Not detect); Norovirus GI/GII PCR Not detected (Not detect); Plesiomonas shigelloides PCR Not detected (Not detect); Rotavirus A PCR Not detected (Not detect); Salmonella PCR Not detected (Not detect); Sapovirus PCR Not detected (Not detect); Shig/EnteroinvasiveE coli EIEC Not detected (Not detect); Shigalike tox-prod E coli STEC Not detected (Not detect); Vibrio PCR Not detected (Not detect); Vibrio cholerae PCR Not detected (Not detect); Yersinia enterocolitica PCR Not detected (Not detect)
[2017-06-29] MEDS: Ipratropium/Albuterol Neb 3 ML IH SCH ×6 (04:45→23:44)
[2017-06-29] MEDS: *HR* Heparin 5,000 UNIT/ML VIAL SQ SCH ×2 (05:12→17:32)
[2017-06-29] MEDS: Budesonide/Formoterol 80/4.5 MDI IH SCH ×2 (07:45→20:16)
[2017-06-29] MEDS ORDERED: Bumetanide 1 MG/4 ML VIAL IVP SCH (08:00)
[2017-06-29] MEDS ORDERED: Potassium Chloride Elixir 20 MEQ/15 ML UDC PO SCH (09:00)
[2017-06-29] MEDS: BuPROPion SR (12 HR) 150 MG TABLET PO SCH (09:20)
[2017-06-29] MEDS: Aspirin 81 MG TAB.CHEW PO SCH (09:21)
[2017-06-29] MEDS: Sennosides/Docusate Sodium TABLET PO SCH ×2 (09:22→20:27)
[2017-06-29 09:36] LABS: Magnesium 1.8 mg/dL (1.6-2.6); Phosphorous 3.8 mg/dL (2.7-4.5)
--- NOTE | 2017-06-29 10:23 | Internal Med Progress Note ---
<Renato Gomez - Last Filed: 06/29/17 14:25> Date of Encounter: 06/29/17 Time of Encounter: 10:31 - Assessment and plan (1) Acute on chronic respiratory failure with hypercapnia Current Visit: Yes Status: Acute Assessment and plan: Acute on chronic respiratory failure with hypercapnia and hypoxia, status post extubation The patient is doing significantly better than she was doing She did have overnight O2/BiPAP qualification at which time she qualified for BiPAP She had significant desaturation events overnight which did lead to some confusion This confusion improved with the addition of BiPAP We will continue this for now as we treat pneumonia Rocephin day 3 of , Total of 7 days abx so far (2) COPD exacerbation Current Visit: Yes Status: Acute Assessment and plan: Acute exacerbation of COPD The patient is on Solu-Medrol and Rocephin We will transition to oral prednisone (3) Sepsis Current Visit: Yes Status: Resolved Assessment and plan: Sepsis secondary to H. Flu pneumonia Blood cultures negative Patient remains intermittently tachycardic, however she seems to improve on BiPAP I believe that this sepsis has largely resolved Continue Rocephin Day 3 Qualifiers: Sepsis type: sepsis due to unspecified organism Qualified Code(s): A41.9 - Sepsis, unspecified organism (4) Pneumonia Current Visit: Yes Status: Acute Assessment and plan: Pneumonia due to H. Flu Continue rocephin Repeat CBC/BMP Qualifiers: Pneumonia type: due to Haemophilus influenzae Laterality: bilateral Lung location: unspecified part of lung Qualified Code(s): J14 - Pneumonia due to Hemophilus influenzae (5) HTN (hypertension) Current Visit: Yes Status: Chronic Assessment and plan: Well controlled at this time Continue current meds, modify as needed Qualifiers: Hypertension type: essential hypertension Qualified Code(s): I10 - Essential (primary) hypertension (6) CAD (coronary artery disease) Current Visit: No Status: Chronic Qualifiers: Coronary Disease-Associated Artery/Lesion type: [place] artery [place] vs. transplanted heart: [place] heart Associated angina: without angina Qualified Code(s): I25.10 - Atherosclerotic heart disease of [place] coronary artery without angina pectoris (7) DVT prophylaxis Current Visit: Yes Status: Acute Assessment and plan: SQ Heparin - Subjective Interval history: The patient is resting comfortably in bed at the time of examination. She says that she's feeling significantly better than she has been, and that she's improving every day. She is still having a bit of a productive cough, however she feels that it is getting better. Additionally, she feels that she is not as short of breath as she has been previously. The patient did undergo O2/ BiPAP qualification overnight, at which time it did demonstrate that BiPAP would be required. Apparently she had some confusion overnight which I think is likely related to the hypoxia due to the BiPAP qualification. Since that time, she has been back on BiPAP and she seems to have improved and is doing well. - Constitutional Vitals: Temp Pulse Resp BP Pulse Ox 98.4 F 103 15 153/98 85 06/29/17 06:57 06/29/17 06:57 06/29/17 06:57 06/29/17 06:57 06/29/17 06:57 Exam: Gen: Vitals noted. No acute distress on BiPAP. AAOx3 HEENT: PERRL/EOMI, oropharynx clear, Normocephalic, atraumatic Neck: Supple. No adenopathy. Cardiac: RRR, no murmur, +S1/S2 Pulmonary: Mild bibasilar rales, minimally diminished. No wheezing is appreciated Abdomen: soft, nontender, BS noted, no guarding Back: Nontender throughout. MSK: ROM intact, no joint swelling noted Extremities: no BLE edema, nontender calf, no cyanosis or clubbing Neuro: A&Ox3, moves all extremities, no focal deficits Psych: Appropriate mood and behavior Internal Medicine: Result - Labs CBC & Chem 7: 06/29/17 11:37 06/29/17 11:37 - ABG Interpretation ABG results: ABG ABG pH 7.44 pH Units (7.32-7.45) 06/27/17 08:39 ABG pCO2 69 mmHg (35-45) H 06/27/17 08:39 ABG pO2 70 mmHg (85-104) L 06/27/17 08:39 ABG O2 Saturation 93 % (95-98) L 06/27/17 08:39 PT/INR, D-dimer D-Dimer 1254 ng/mLFEU (0-500) H 06/23/17 10:12 Consult Discharge Plan - Plan Referrals: Dion Whitman MD [Primary Care Provider] - <Josep Oviedo H - Last Filed: 06/29/17 16:00> Date of Encounter: 06/29/17 - Constitutional Vitals: Temp Pulse Resp BP Pulse Ox 98.4 F 83 21 161/97 94 06/29/17 06:57 06/29/17 15:00 06/29/17 15:00 06/29/17 15:00 06/29/17 15:30 Internal Medicine: Result - Labs CBC & Chem 7: 06/29/17 11:37 06/29/17 11:37 Labs: Short CBC 06/29/17 Range/Units 11:37 WBC 14.3 H (4.3-11.1) K/mcL Hgb 13.0 (11.5-15.4) g/dL Hct 40.2 (35.3-44.9) % Plt Count 351 (140-400) K/mcL Neutrophils # 12.6 H (1.6-8.9) K/mcL BMP 06/29/17 11:37 Sodium 137 Potassium 3.9 Chloride 89 L Carbon Dioxide 40 H* BUN 20 Creatinine 0.80 Glucose 178 H Calcium 9.0 - ABG Interpretation ABG results: ABG ABG pH 7.46 pH Units (7.32-7.45) H 06/29/17 10:50 ABG pCO2 57 mmHg (35-45) H 06/29/17 10:50 ABG pO2 99 mmHg (85-104) 06/29/17 10:50 ABG O2 Saturation 98 % (95-98) 06/29/17 10:50 PT/INR, D-dimer D-Dimer 1254 ng/mLFEU (0-500) H 06/23/17 10:12 - Attending Attestation Acute on chronic hypoxic hypercapnic respiratory failure secondary to acute COPD exacerbation due to sepsis due to Haemophilus influenza pneumonia [place] day #3, completed 7 days Qualified for BiPAP , but will be available at the hospital upon discharge, he will be provided by [facility] respiratory services Discharge on home health services tomorrow if stable Tobacco abuse, discharged on nicotine patch I examined this patient and my medical decision-making was reviewed with the Resident Physician. I agree with the documented findings, disposition and treatment plan as described except to the extent set forth below.
[2017-06-29 10:53] LABS: ABG Base Excess 14 mEq/L (-2 to 3); ABG HCO3 41 mEq/L (21-27); ABG Oxygen Saturation 98 % (95-98); ABG PCO2 57 mmHg (35-45); ABG PH 7.46 pH Units (7.32-7.45); ABG PO2 99 mmHg (85-104); ABG TCO2 42 mEq/L (20-26); Blood Gas Modality BiLevel; Blood Gas Pressure Support 12 cm H2O
[2017-06-29 11:56] LABS: Hematocrit 40.2 % (35.3-44.9); Mean Corpuscular HGB Conc 32.3 g/dL (31.6-35.5); Mean Corpuscular Hemoglobin 29.3 pg (28.0-33.3); Mean Corpuscular Volume 90.7 fL (83.0-100.0); Mean Platelet Volume 9.5 fL (9.4-12.4); Platelet Count 351 K/mcL (140-400); Red Blood Count 4.43 M/mcL (3.82-4.97); Red Cell Distribution Width 14.8 % (11.5-14.5)
[2017-06-29 12:17] LABS: Lymphocytes # 1.7 K/mcL (0.6-4.6); Neutrophils # 12.6 K/mcL (1.6-8.9); Platelet Estimate Normal (Normal)
[2017-06-29 12:25] LABS: BUN/Creatinine Ratio 25 (6-26); Blood Urea Nitrogen 20 mg/dL (8-23); Carbon Dioxide 40 mEq/L (23-29); Chloride 89 mEq/L (98-107); Glucose 178 mg/dL (70-105); Osmolality,Calculated 291 (280-300); Potassium 3.9 mEq/L (3.5-5.1); Sodium 137 mEq/L (136-145); eGFR For African Americans > 60 (> 60); eGFR For Non-African Americans > 60 (> 60)
[2017-06-29] MEDS: Lactobacillus 1 EACH CAP.SPRINK PO SCH ×2 (15:27→20:26)
[2017-06-29] MEDS: cefTRIAXone 1,000 MG in Water for inj. (sterile) 20 ML 10 ML IVP SCH (20:26)
[2017-06-30] MEDS: Ipratropium/Albuterol Neb 3 ML IH SCH ×3 (04:13→11:38)
[2017-06-30 05:55] LABS: Basophils # 0.1 K/mcL (0.0-0.2); Basophils % 0.6 %; Eosinophils # 0.2 K/mcL (0.0-0.6); Hematocrit 41.2 % (35.3-44.9); Immature Granulocytes % 5.3 % (0-4); Lymphocytes % 24.2 %; Mean Corpuscular HGB Conc 31.6 g/dL (31.6-35.5); Mean Corpuscular Hemoglobin 29.3 pg (28.0-33.3); Mean Corpuscular Volume 92.8 fL (83.0-100.0); Mean Platelet Volume 9.2 fL (9.4-12.4); Monocytes % 6.4 %; Neutrophils # 9.4 K/mcL (1.6-8.9); Platelet Count 289 K/mcL (140-400); Red Blood Count 4.44 M/mcL (3.82-4.97); Red Cell Distribution Width 15.1 % (11.5-14.5); Segmented Neutrophils % 62.5 %
[2017-06-30 06:00] LABS: Lymphocytes # 3.7 K/mcL (0.6-4.6)
[2017-06-30 06:20] LABS: Platelet Estimate Normal (Normal); Reactive Lymphocytes Present (Not Present); Toxic Granulation Present (Not Present)
[2017-06-30 06:28] LABS: BUN/Creatinine Ratio 23 (6-26); Blood Urea Nitrogen 23 mg/dL (8-23); Calcium 8.7 mg/dL (8.6-10.3); Carbon Dioxide 40 mEq/L (23-29); Chloride 95 mEq/L (98-107); Glucose 117 mg/dL (70-105); Osmolality,Calculated 293 (280-300); Potassium 3.7 mEq/L (3.5-5.1); Sodium 139 mEq/L (136-145); eGFR For African Americans > 60 (> 60); eGFR For Non-African Americans 55 (> 60)
[2017-06-30] MEDS: *HR* Heparin 5,000 UNIT/ML VIAL SQ SCH (06:41)
[2017-06-30] MEDS: Budesonide/Formoterol 80/4.5 MDI IH SCH (07:33)
[2017-06-30] MEDS ORDERED: cefTRIAXone 1,000 MG in Water for inj. (sterile) 20 ML 10 ML IVP SCH (08:11)
--- NOTE | 2017-06-30 08:26 | Discharge Summary ---
- NOTES TO OUTPATIENT PROVIDER Notes to Outpatient Provider: Follow up with Pulmonary in 2 weeks, follow up with primary care physician in 7 days. Slow prednisone taper 40 mg for 4 days, 30 mg for 4 days, 30 mg for 4 days, 10 mg for 4 days. Complete doses of cefdinir. Use BIPAP if confused and at night Orders not resulted at time of discharge: Pending orders 06/24/17 08:36 AFB Culture, Respiratory [TB] Stat Date of Encounter: 06/30/17 Time of Encounter: 08:24 - Discharge Diagnosis (1) Acute on chronic respiratory failure with hypercapnia Priority: Primary Status: Acute Comments: Acute on chronic hypoxic hypercapnic respiratory failure secondary to acute COPD exacerbation due to sepsis due to Haemophilus influenza pneumonia (2) Haemophilus influenzae infection Priority: Primary Status: Acute (3) COPD exacerbation Priority: Primary Status: Acute (4) Sepsis Priority: Primary Status: Resolved Qualifiers: Sepsis type: sepsis due to unspecified organism Qualified Code(s): A41.9 - Sepsis, unspecified organism (5) CAD (coronary artery disease) Priority: Secondary Status: Chronic Qualifiers: Coronary Disease-Associated Artery/Lesion type: [place] artery [place] vs. transplanted heart: [place] heart Associated angina: without angina Qualified Code(s): I25.10 - Atherosclerotic heart disease of [place] coronary artery without angina pectoris Hospital course: Ms. Cook is a 67 year old female with a PMH of COPD O2 dep, recent pneumonia , tobacco use, anxiety, hypertension and NC 2 CAD. She presented due to increased shortness of breath, productive cough over the past 2-3 days prior to admission. She has also had a subjective fever. The patient was hypersomnolent and difficult to arouse. She reporteda a productive cough, thick, yellow/ green sputum . CT chest was negative for PE but showed improving multifocal opacities and chronic inflammatory changes. Ph was 7.19, pCO2 115 pO2 83, had to be intubated. Was initially treated with Zosyn and vancomycin, Levaquin was discontinued, was switched to Rocephin after her culture came back positive for Haemophilus influenza The patient was successfully extubated and has been improving on IV steroids. Qualified for BiPAP Stable to be discharged Time spent discussing smoking cessation with patient: 3 to 10 minutes - Time Spent with Patient Total time spent providing and/or coordinating discharge services: Greater than 30 minutes (40 min) - Discharge Medications Prescriptions: Cefdinir [Omnicef] 300 mg PO BID #6 capsule Nicotine Patch [Nicoderm] 14 mg TD DAILY #30 patch.td24 Home Medications: Ipratropium/Albuterol Neb [Duoneb] 3 ml IH QID PRN 08/12/15 [History] Omeprazole [PriLOSEC] 20 mg PO DAILY 08/12/15 [History] Aspirin 81 mg PO DAILY tab.chew 04/06/16 [Rx] Atorvastatin [Lipitor] 40 mg PO HS 01/26/17 [History] Metoprolol Succinate 100 mg PO DAILY 01/26/17 [History] Losartan [Cozaar] 100 mg PO DAILY tablet 02/01/17 [Rx] Magnesium Oxide [Mag-Ox] 400 mg PO BID tablet 02/01/17 [Rx] Potassium Chloride 10 meq PO DAILY #30 tab.er.prt 02/16/17 [Rx] ALPRAZolam [Xanax 0.25 MG Tablet] 0.25 mg PO Q8HR PRN #15 tablet 03/01/17 [Rx] Ibuprofen [Motrin] 600 mg PO Q6HR PRN 7 Days #28 tab 04/24/17 [Rx] Ergocalciferol (VITAMIN D2) [Drisdol (50,000 Unit)] 50,000 unit PO ADLER 04/25/17 [ History] Escitalopram [Lexapro] 10 mg PO DAILY 04/25/17 [History] Theophylline Anhydrous [Theophylline] 200 mg PO DAILY 04/25/17 [History] Tiotropium [Spiriva] 18 mcg IH DAILY 04/25/17 [History] Bumetanide 0.5 mg PO DAILY 04/27/17 [History] Docusate [Colace] 100 mg PO BID 04/27/17 [History] OxyCODONE Immed Rel [Roxicodone 5 MG] 5 mg PO Q8H PRN 06/24/17 [History] Cefdinir [Omnicef] 300 mg PO BID #6 capsule 06/30/17 [Rx] Nicotine Patch [Nicoderm] 14 mg TD DAILY #30 patch.td24 06/30/17 [Rx] predniSONE [PredniSONE] 10 mg PO DAILY 16 Days tablet 06/30/17 [Rx] Allergies/Adverse Reactions: 3 Allergy/AdvReac Type Severity Reaction Status Date / Time No Known Allergies Allergy Verified 04/25/17 11:29 Date of admission: 06/23/17 14:04 Primary care physician: Dion Whitman MD Consults: 06/23/17 14:32 Consult to Pulmonology [CONS] Routine Consulting Provider: [facility] [place] Reason for Consult: Vent/ Intensive care management Call Completed: Yes 06/23/17 16:34 Consult to Nutrition [CONS] Routine Comment: Consulting Provider: NUTRITION Reason for Dietary Consult: MST Score Consult to [place] [CONS] Routine Reason for SW Consult: Home health needs 06/25/17 10:45 Consult to Nutrition [CONS] Routine Comment: Consulting Provider: NUTRITION Reason for Dietary Consult: Tube Feed Start & Manage - Constitutional Vitals: Temp Pulse Resp BP Pulse Ox 97.4 F L 107 16 132/85 90 06/30/17 06:48 06/30/17 06:48 06/30/17 07:33 06/30/17 07:33 06/30/17 07:33 General appearance: Present: A&O X 3 - Head Head exam: Present: atraumatic, normocephalic - Eye Eye exam: Present: PERRL, conjuntiva pink, sclera anicteric Pupils: Present: PERRL - Neck Neck exam general surgery: Present: supple, trachea midline. Absent: lymphadenopathy - Respiratory Respiratory exam: Present: CTAB. Absent: accessory muscle use, rales, rhonchi, wheezes - Cardiovascular Cardiovascular exam: Present: RRR, +S1, +S2. Absent: diastolic murmur, gallop, rubs, systolic murmur - GI/Abdominal GI/Abdominal exam: Present: normal bowel sounds, soft, no peritoneal signs. Absent: distended, tenderness - Extremities Exam Extremities exam: Present: warm, radial pulses palpable and symmetrical. Absent : calf tenderness, cyanotic, pedal edema - Neurological Exam Neurological exam: Present: CN II-XII intact, oriented X3, no focal deficits. Absent: pronater drift, facial droop, speech deficit - Skin Skin exam: Present: dry, intact - Patient Status Disposition: Home Health Service Condition: Fair Overall status at discharge: patient is progressing back to baseline - Discharge Instructions Follow Up With: Dion Whitman MD [Primary Care Provider] - Additional Instructions: Follow up with Pulmonary in 2 weeks, follow up with primary care physician in 7 days. Slow prednisone taper 40 mg for 4 days, 30 mg for 4 days, 30 mg for 4 days , 10 mg for 4 days. Complete doses of cefdinir. Use BIPAP if confused and at night - Diet and Activity Activity: increase activity as tolerated Diet: low fat, low cholesterol
[2017-06-30] MEDS: Aspirin 81 MG TAB.CHEW PO SCH (08:40)
[2017-06-30] MEDS: BuPROPion SR (12 HR) 150 MG TABLET PO SCH (08:41)
[2017-06-30] MEDS: Lactobacillus 1 EACH CAP.SPRINK PO SCH (08:41)
[2017-06-30] MEDS: Sennosides/Docusate Sodium TABLET PO SCH (08:42)
--- NOTE | 2017-06-30 08:45 | Physician Discharge Referral ---
Home Health/Hosp Referral Info Transfer to: Home Health Provider in Charge Post Discharge: PCP - Diagnosis (1) Acute on chronic respiratory failure with hypercapnia Status: Acute (2) Haemophilus influenzae infection Status: Acute (3) COPD exacerbation Status: Acute (4) Sepsis Status: Resolved (5) CAD (coronary artery disease) Status: Chronic - Respiratory Orders Oxygen / L per min (3) Smoking Cessation: Smoking cessation has been advised. For more information, call the [place] Tobacco Quit Line at 3-502-EFRP-NOW. - Diet/Nutrition Diet/Nutrition Orders: No Added Salt (JASON) - Services Needed Following services are medically necessary services: Nursing, Home Health Aide, Physical Therapy, Occupational Therapy Home Care Orders: Follow up with Pulmonary in 2 weeks, follow up with primary care physician in 7 days. Slow prednisone taper 40 mg for 4 days, 30 mg for 4 days, 30 mg for 4 days , 10 mg for 4 days. Complete doses of cefdinir. Use BIPAP if confused and at night. QUIT smoking. Do not use nicotine patch with tobacco - Transfer Medications Prescriptions: Cefdinir [Omnicef] 300 mg PO BID #6 capsule Nicotine Patch [Nicoderm] 14 mg TD DAILY #30 patch.td24 Home Medications: Ipratropium/Albuterol Neb [Duoneb] 3 ml IH QID PRN 08/12/15 [History] Omeprazole [PriLOSEC] 20 mg PO DAILY 08/12/15 [History] Aspirin 81 mg PO DAILY tab.chew 04/06/16 [Rx] Atorvastatin [Lipitor] 40 mg PO HS 01/26/17 [History] Metoprolol Succinate 100 mg PO DAILY 01/26/17 [History] Losartan [Cozaar] 100 mg PO DAILY tablet 02/01/17 [Rx] Magnesium Oxide [Mag-Ox] 400 mg PO BID tablet 02/01/17 [Rx] Potassium Chloride 10 meq PO DAILY #30 tab.er.prt 02/16/17 [Rx] ALPRAZolam [Xanax 0.25 MG Tablet] 0.25 mg PO Q8HR PRN #15 tablet 03/01/17 [Rx] Ibuprofen [Motrin] 600 mg PO Q6HR PRN 7 Days #28 tab 04/24/17 [Rx] Ergocalciferol (VITAMIN D2) [Drisdol (50,000 Unit)] 50,000 unit PO ADLER 04/25/17 [ History] Escitalopram [Lexapro] 10 mg PO DAILY 04/25/17 [History] Theophylline Anhydrous [Theophylline] 200 mg PO DAILY 04/25/17 [History] Tiotropium [Spiriva] 18 mcg IH DAILY 04/25/17 [History] Bumetanide 0.5 mg PO DAILY 04/27/17 [History] Docusate [Colace] 100 mg PO BID 04/27/17 [History] OxyCODONE Immed Rel [Roxicodone 5 MG] 5 mg PO Q8H PRN 06/24/17 [History] Cefdinir [Omnicef] 300 mg PO BID #6 capsule 06/30/17 [Rx] Nicotine Patch [Nicoderm] 14 mg TD DAILY #30 patch.td24 06/30/17 [Rx] predniSONE [PredniSONE] 10 mg PO DAILY 16 Days tablet 06/30/17 [Rx] Allergies/Adverse Reactions: 3 Allergy/AdvReac Type Severity Reaction Status Date / Time No Known Allergies Allergy Verified 04/25/17 11:29 Certification: Further, I certify that my clinical findings support that this patient is homebound (i.e. absences from home require considerable and taxing effort and are for medical reasons or orthodoxy services or infrequently or short duration when for other reasons) because: Homebound Reason: Patient requires assistance of a person or device to safely leave home Attestation: My signature below is to certify that this patient is under my care and that I, or nurse practitioner, or a physician's operational assistant working with me, has a face-to -face encounter with this patient.
[2017-06-30] MEDS ORDERED: predniSONE 20 MG TABLET PO SCH (09:00)
[2017-06-30] MEDS ORDERED: MethylPREDNISolone 40 MG/ML VIAL IVP SCH (09:00)
[2017-06-30] MEDS ORDERED: Bumetanide 1 MG TABLET PO SCH (09:00)
[2017-06-30 10:21] VITALS: BP 142/97
== END 2017-06-30 12:29 | disposition home health service (06) | DRG 871 ==
LOC: EMEROO 09:43 → ICNU 14:04 → 2NENU 06-28 18:29
PROVIDERS: ADMIT Internal Medicine; ATTEND Internal Medicine

== ENCOUNTER 2017-11-13 09:06 | Inpatient (IN) ==
[~2017-11-13 09:06] MED LIST changes: +*HR* Etomidate 20 MG/10 ML AMPUL IVP ONE; -*HR* Etomidate 40 MG/20 ML VIAL IVP ONE
[2017-11-13] MEDS ORDERED: 0.9 % Sodium Chloride 1,000 ML ONE ×2 (09:15→12:05)
[2017-11-13] MEDS ORDERED: *HR* Etomidate 20 MG/10 ML AMPUL IVP ONE (09:22)
[2017-11-13] MEDS ORDERED: *HR* Rocuronium Bromide 50 MG/5 ML VIAL IVP ONE (09:22)
[2017-11-13] MEDS ORDERED: Isovue-370 500 ML INFUS..BTL IV ONE (09:22)
[2017-11-13 09:34] LABS: ABG Base Excess 5 mEq/L (-2 to 3); ABG HCO3 39 mEq/L (21-27); ABG Oxygen Saturation 100 % (95-98); ABG PCO2 112 mmHg (35-45); ABG PH 7.15 pH Units (7.32-7.45); ABG PO2 445 mmHg (85-104); ABG TCO2 43 mEq/L (20-26); Blood Gas Modality ASSIST CONTROL; Blood Gas PEEP 5 cm H2O; Blood Gas Respiration Rate 12; Blood Gas VT 500 cc
[2017-11-13 09:35] LABS: Basophils # 0.1 K/mcL (0.0-0.2); Basophils % 0.4 %; Bilirubin,Urine Negative (Negative); Blood,Urine Trace (Negative); Clarity,Urine Cloudy (Clear); Color,Urine Yellow (Yellow); Eosinophils # 0.6 K/mcL (0.0-0.6); Eosinophils % 3.5 %; Glucose,Urine (UA) 250 mg/dL (Normal); Hematocrit 46.8 % (35.3-44.9); Hemoglobin 14.7 g/dL (11.5-15.4); Immature Granulocytes % 0.4 % (0-4); Ketones,Urine Negative (Negative); Leukocyte Esterase,Urine Negative (Negative); Lymphocytes # 2.3 K/mcL (0.6-4.6); Lymphocytes % 13.8 %; Mean Corpuscular HGB Conc 31.4 g/dL (31.6-35.5); Mean Corpuscular Hemoglobin 30.4 pg (28.0-33.3); Mean Corpuscular Volume 96.7 fL (83.0-100.0); Mean Platelet Volume 9.6 fL (9.4-12.4); Monocytes # 0.9 K/mcL (0.0-1.3); Monocytes % 5.3 %; Neutrophils # 12.6 K/mcL (1.6-8.9); Nitrite,Urine Negative (Negative); Platelet Count 334 K/mcL (140-400); Protein,Urine >=1000 mg/dL (Neg-Trace); Red Blood Count 4.84 M/mcL (3.82-4.97); Red Cell Distribution Width 13.4 % (11.5-14.5); Segmented Neutrophils % 76.6 %; Specific Gravity,Urine 1.027 (1.010-1.025); Urobilinogen,Urine Normal (Normal)
[2017-11-13] MEDS ORDERED: Levofloxacin 750 MG/150 ML 750 MG/150 ML BAG IVPB ONE (09:35)
[2017-11-13 09:38] LABS: Bacteria,Urine Few per hpf (None-Few); Hyaline Casts,Urine None Seen per lpf (None-Few); Squamous Epithelial Cell,Urine Moderate per lpf (None-Few); WBC,Urine 15-30 per hpf (0-3)
[2017-11-13 09:42] LABS: INR 0.9; Prothrombin Time 10.6 Seconds (9.4-12.1)
[2017-11-13 09:45] LABS: Activated Partial Thrombo Time 39.4 Seconds (26.0-36.0)
[2017-11-13 09:46] LABS: Troponin I < 0.03 ng/mL (< 0.04)
[2017-11-13 09:47] LABS: Alanine Aminotransferase 19 Units/L (7-52); Albumin 4.4 g/dL (3.5-5.7); Albumin/Globulin Ratio 1.4 (1.1-2.2); Alkaline Phosphatase 141 Units/L (34-104); Aspartate Amino Transferase 14 Units/L (13-39); BUN/Creatinine Ratio 14 (6-26); Bilirubin,Direct 0.1 mg/dL (0.0-0.2); Bilirubin,Indirect 0.2 mg/dL (0.0-1.2); Bilirubin,Total 0.3 mg/dL (0.3-1.0); Blood Urea Nitrogen 11 mg/dL (8-23); Calcium 9.7 mg/dL (8.6-10.3); Carbon Dioxide 36 mEq/L (23-29); Chloride 89 mEq/L (98-107); Globulin 3.2 g/dL (2.4-3.5); Glucose 300 mg/dL (70-105); Lipase 23 Units/L (11-82); Magnesium 1.7 mg/dL (1.6-2.6); Osmolality,Calculated 285 (280-300); Phosphorous 6.6 mg/dL (2.7-4.5); Potassium 3.8 mEq/L (3.5-5.1); Sodium 132 mEq/L (136-145); Total Protein 7.6 g/dL (6.4-8.9); eGFR For Non-African Americans > 60 (> 60)
--- NOTE | 2017-11-13 09:54 | Emergency Department Note ---
Disposition Clinical Impression: Hypercarbia, Hypoxia Acute respiratory failure Qualifiers: Respiratory failure complication: hypoxia and hypercapnia Qualified Code(s): J96.01 - Acute respiratory failure with hypoxia; J96.02 - Acute respiratory failure with hypercapnia Disposition: Admitted As Inpatient Condition: Fair Time of Disposition: 12:55 General Adult HPI - General Chief complaint: ED Altered Mental Status Stated complaint: ALYSSA Time Seen by Provider: 11/13/17 09:21 Source: EMS Mode of arrival: EMS Limitations: altered mental status Nursing Notes Reviewed: Yes Vital Signs Reviewed: Yes - History of Present Illness HPI Narrative: 67 year old krystle alcala ot the ED via EMS for unresponsive nature and according to EMS family states that she has been dealing with a sinus infection and there has been a similar episode in the past when she became unrespoinsve secondary to pneumoina and required assisted ventilation. PAtinet upon arival was 79% and was unrepsonvie to voice and pain. Patinet was placed on a NRB and was at 94%. Upon ariival to us her GCS if likley 7 as she is not responding to pain or voice and is moaning at bedside with gurgles. To protect airway I will intubate patient. PAtinet likely is sepsis. Her blood glucose was obtained. two large bore IVS placed, IVF flowing. Pain Scale: 0 - Related Data Home Medications Medication Instructions Recorded Confirmed Ipratropium/Albuterol Neb [Duoneb] 3 ml IH QID PRN 08/12/15 06/24/17 Omeprazole [PriLOSEC] 20 mg PO DAILY 08/12/15 06/24/17 Atorvastatin [Lipitor] 40 mg PO HS 01/26/17 11/13/17 Metoprolol Succinate 100 mg PO DAILY 01/26/17 11/13/17 Escitalopram [Lexapro] 5 - 10 mg PO DAILY 04/25/17 11/13/17 Theophylline Anhydrous 200 mg PO DAILY 04/25/17 11/13/17 [Theophylline] Tiotropium [Spiriva] 18 mcg IH DAILY 04/25/17 11/13/17 ALPRAZolam [Xanax 0.5 MG Tablet] 0.25 - 0.5 mg PO BID PRN 11/13/17 11/13/17 Cholecalciferol (D-3) [Vitamin D] 2,000 unit PO DAILY 11/13/17 Fluticasone/Salmeterol [Advair 1 puff IH BID 11/13/17 11/13/17 500-50 Diskus] Losartan/Hydrochlorothiazide 1 tab PO DAILY 11/13/17 11/13/17 [Hyzaar 100-25 Tablet] Potassium Chloride 10 meq PO BID 11/13/17 Previous Rx's Medication Instructions Recorded Aspirin 81 mg PO DAILY tab.chew 04/06/16 Allergies Allergy/AdvReac Type Severity Reaction Status Date / Time No Known Allergies Allergy Verified 11/13/17 11:09 Review of Systems: As Per HPI Limitations: ROS unobtainable due to patients medical condition Constitutional: Reports: fever, chills, weakness Respiratory: Reports: cough Past Medical History - Past Medical History Medical history: Reports: COPD, hypertension Surgical history: Reports: hysterectomy, orthopedic, other Psychiatric history: Reports: anxiety 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 - Social History Smoking Status: Former smoker Smokeless Tobacco Status: No Alcohol use: Reports: none Drug use: Reports: none Physical Exam neuro exam unable to obtain due to unresponsive nature - General Limitations: altered mental status General appearance: in distress - Head Head exam: atraumatic, normocephalic, normal inspection - Eye Eye exam: Present: normal appearance, PERRL, EOMI - Expanded Eye Exam Pupils: Bilateral: reactive - ENT ENT exam: normal exam, normal oropharynx, mucous membranes moist, other ( green nasal discharge) - Expanded ENT Exam External ear exam: Present: normal external inspection Mouth exam: Present: normal external inspection Teeth exam: Present: normal inspection Throat exam: Present: normal inspection - Neck Neck exam: Present: normal inspection, full ROM, trachea midline - Chest Chest inspection: Present: normal inspection, symmetric chest wall rise - Respiratory Respiratory exam: Present: other (decresed air movement) - Cardiovascular Cardiovascular exam: Present: normal rhythm, tachycardia, normal heart sounds - Abdominal Exam Abdominal exam: Present: soft, Non-Tender. Absent: tenderness, distention, guarding, rebound, rigidity - Extremities Exam Extremities exam: Present: normal inspection. Absent: tenderness, pedal edema - Expanded Upper Extremity Exam Shoulder exam: Present: normal inspection Arm exam: Present: normal inspection Elbow exam: Present: normal inspection Forearm/Wrist exam: Present: normal inspection Hand exam: Present: normal inspection Vascular exam: Normal: capillary refill, radial pulse - Expanded Lower Extremity Exam Hip/Pelvis exam: Present: normal inspection Upper leg exam: Present: normal inspection Knee exam: Present: normal inspection Lower leg exam: Present: normal inspection Ankle exam: Present: normal inspection Foot/toe exam: Present: normal inspection Neurovascular/Tendon exam: Absent: motor deficit, sensory deficit, tendon deficit - Back Exam Back exam: Present: normal inspection, full ROM. Absent: tenderness - Neurological Exam Neurological exam: Absent: alert - Expanded Neurological Exam Speech: Absent: fluid speech Coma Scale Eye Opening: None Coma Scale Motor Response: Localizes to Pain Coma Scale Verbal Response: None Coma Scale Total: 7 - Psychiatric Psychiatric exam: Present: normal affect, normal mood - Skin Skin exam: Present: warm, dry, intact, normal color Course Course Narrative: patient is intubated. WE will admit to ICU for sepsis workup - Reevaluation(s) Reevaluation #1: juve has been difficult to sedate secondary to hypotension on propofol. When she returned from [place] she had some ventilator issues that were corrected with respiratroy at bedside. Also, juve becomes hypoxic again when she was moved to the critical bay area. Juve became hypotensive on propofol which require 1cc of a dirty epi drip. She is now stablized. PAtient is being transferred to the ICU now. Time: 12:54 - Consultations Consultation #1: discussed case with Dr. Bey and he has accepted aptien to the ICU. Time: 12:00 Vital Signs Temperature 97.3 F L 11/13/17 09:08 Pulse Rate 113 11/13/17 09:08 Respiratory Rate 26 11/13/17 09:08 Blood Pressure 188/112 11/13/17 09:08 O2 Sat by Pulse Oximetry 94 11/13/17 09:08 Temperature 97.3 F L 11/13/17 09:08 Pulse Rate 89 11/13/17 11:59 Respiratory Rate 12 11/13/17 11:59 Blood Pressure 99/66 11/13/17 10:18 O2 Sat by Pulse Oximetry 99 11/13/17 11:59 Oxygen Delivery Oxygen Delivery Ventilator Procedures - Intubation Time out performed: Yes sedative: Etomidate Mg Given: 20 paralytic: Rocuronium Mg Given: 100 Laryngoscope: other (Cmac;) ET Tube Size: 8 ET Tube Uncuffed: Yes Tube Secured Depth (cm): 22 Tube Secured Location: lips Tube Placement Confirmation: visualized tube passing through cords, equal breath sounds bilaterally, no breath sounds over epigastrium Patient Tolerated Procedure: no complications Intubation Complications: none Medical Decision Making - Medical Records Medical records reviewed: Yes I reviewed the patient's medical records. - Lab Data Lab results reviewed: Yes I reviewed the patient's lab results. Result diagrams: 11/13/17 09:14 11/13/17 09:14 Lab Results 11/13/17 11/13/17 11/13/17 Range/Units 09:14 09:14 09:14 WBC 16.4 H (4.3-11.1) K/mcL RBC 4.84 (3.82-4.97) M/mcL Hgb 14.7 (11.5-15.4) g/dL Hct 46.8 H (35.3-44.9) % MCV 96.7 (83.0-100.0) fL MCH 30.4 (28.0-33.3) pg MCHC 31.4 L (31.6-35.5) g/dL RDW 13.4 (11.5-14.5) % Plt Count 334 (140-400) K/mcL MPV 9.6 (9.4-12.4) fL Immature Gran % 0.4 (0-4) % Seg Neutrophils % 76.6 % Lymphocytes % 13.8 % Monocytes % 5.3 % Eosinophils % 3.5 % Basophils % 0.4 % Neutrophils # 12.6 H (1.6-8.9) K/mcL Lymphocytes # 2.3 (0.6-4.6) K/mcL Monocytes # 0.9 (0.0-1.3) K/mcL Eosinophils # 0.6 (0.0-0.6) K/mcL Basophils # 0.1 (0.0-0.2) K/mcL PT 10.6 (9.4-12.1) Seconds INR 0.9 APTT 39.4 H (26.0-36.0) Seconds ABG pH (7.32-7.45) pH Units ABG pCO2 (35-45) mmHg ABG pO2 (85-104) mmHg ABG HCO3 (21-27) mEq/L ABG Total CO2 (20-26) mEq/L ABG O2 Saturation (95-98) % ABG Base Excess (-2 to 3) mEq/L Respiration Rate O2 Delivery Device Blood Gas Modality Inspired O2 (1-15=lpm [id number]=%) Tidal Volume cc PEEP cm H2O Sodium (136-145) mEq/L Potassium (3.5-5.1) mEq/L Chloride (98-107) mEq/L Carbon Dioxide (23-29) mEq/L BUN (8-23) mg/dL Creatinine (0.60-1.20) mg/dL Est GFR ( Amer) (> 60) Est GFR (Non-Af Amer) (> 60) BUN/Creatinine Ratio (6-26) Glucose (70-105) mg/dL Calculated Osmolality (280-300) Lactic Acid (0.5-2.2) mmol/L Calcium (8.6-10.3) mg/dL Phosphorus (2.7-4.5) mg/dL Magnesium (1.6-2.6) mg/dL Total Bilirubin (0.3-1.0) mg/dL Direct Bilirubin (0.0-0.2) mg/dL Indirect Bilirubin (0.0-1.2) mg/dL AST (13-39) Units/L ALT (7-52) Units/L Alkaline Phosphatase (34-104) Units/L Troponin I (< 0.04) ng/mL B-Natriuretic Peptide (Less than 100) pg/mL Serum Total Protein (6.4-8.9) g/dL Albumin (3.5-5.7) g/dL Globulin (2.4-3.5) g/dL Albumin/Globulin Ratio (1.1-2.2) Lipase (11-82) Units/L Beta-Hydroxybutyric Acd (0.02-0.27) mmol/L Urine Color Yellow (Yellow) Urine Clarity Cloudy A (Clear) Urine pH 7.0 (5.0-8.0) pH Units Ur Specific [place] 1.027 H (1.010-1.025) Urine Protein >=1000 H (Neg-Trace) mg/dL Urine Glucose (UA) 250 H (Normal) mg/dL Urine Ketones Negative (Negative) mg/dL Urine Blood Trace H (Negative) Urine Nitrite Negative (Negative) Urine Bilirubin Negative (Negative) Urine Urobilinogen Normal (Normal) mg/dL Ur Leukocyte Esterase Negative (Negative) Urine Microscopic RBC 5-15 H (0-3) per hpf Urine Microscopic WBC 15-30 H (0-3) per hpf Ur Squamous Epith Cells Moderate H (None-Few) per lpf Urine Bacteria Few (None-Few) per hpf Hyaline Casts None Seen (None-Few) per lpf Ur Culture Indicated? NO (NO) Blood Type Antibody Screen 11/13/17 11/13/17 11/13/17 Range/Units 09:14 09:14 09:14 WBC (4.3-11.1) K/mcL RBC (3.82-4.97) M/mcL Hgb (11.5-15.4) g/dL Hct (35.3-44.9) % MCV (83.0-100.0) fL MCH (28.0-33.3) pg MCHC (31.6-35.5) g/dL RDW (11.5-14.5) % Plt Count (140-400) K/mcL MPV (9.4-12.4) fL Immature Gran % (0-4) % Seg Neutrophils % % Lymphocytes % % Monocytes % % Eosinophils % % Basophils % % Neutrophils # (1.6-8.9) K/mcL Lymphocytes # (0.6-4.6) K/mcL Monocytes # (0.0-1.3) K/mcL Eosinophils # (0.0-0.6) K/mcL Basophils # (0.0-0.2) K/mcL PT (9.4-12.1) Seconds INR APTT (26.0-36.0) Seconds ABG pH (7.32-7.45) pH Units ABG pCO2 (35-45) mmHg ABG pO2 (85-104) mmHg ABG HCO3 (21-27) mEq/L ABG Total CO2 (20-26) mEq/L ABG O2 Saturation (95-98) % ABG Base Excess (-2 to 3) mEq/L Respiration Rate O2 Delivery Device Blood Gas Modality Inspired O2 (1-15=lpm [id number]=%) Tidal Volume cc PEEP cm H2O Sodium 132 L (136-145) mEq/L Potassium 3.8 (3.5-5.1) mEq/L Chloride 89 L (98-107) mEq/L Carbon Dioxide 36 H (23-29) mEq/L BUN 11 (8-23) mg/dL Creatinine 0.76 (0.60-1.20) mg/dL Est GFR ( Amer) > 60 (> 60) Est GFR (Non-Af Amer) > 60 (> 60) BUN/Creatinine Ratio 14 (6-26) Glucose 300 H (70-105) mg/dL Calculated Osmolality 285 (280-300) Lactic Acid 0.8 (0.5-2.2) mmol/L Calcium 9.7 (8.6-10.3) mg/dL Phosphorus 6.6 H (2.7-4.5) mg/dL Magnesium 1.7 (1.6-2.6) mg/dL Total Bilirubin 0.3 (0.3-1.0) mg/dL Direct Bilirubin 0.1 (0.0-0.2) mg/dL Indirect Bilirubin 0.2 (0.0-1.2) mg/dL AST 14 (13-39) Units/L ALT 19 (7-52) Units/L Alkaline Phosphatase 141 H (34-104) Units/L Troponin I < 0.03 (< 0.04) ng/mL B-Natriuretic Peptide 44 (Less than 100) pg/mL Serum Total Protein 7.6 (6.4-8.9) g/dL Albumin 4.4 (3.5-5.7) g/dL Globulin 3.2 (2.4-3.5) g/dL Albumin/Globulin Ratio 1.4 (1.1-2.2) Lipase 23 (11-82) Units/L Beta-Hydroxybutyric Acd (0.02-0.27) mmol/L Urine Color (Yellow) Urine Clarity (Clear) Urine pH (5.0-8.0) pH Units Ur Specific [place] (1.010-1.025) Urine Protein (Neg-Trace) mg/dL Urine Glucose (UA) (Normal) mg/dL Urine Ketones (Negative) mg/dL Urine Blood (Negative) Urine Nitrite (Negative) Urine Bilirubin (Negative) Urine Urobilinogen (Normal) mg/dL Ur Leukocyte Esterase (Negative) Urine Microscopic RBC (0-3) per hpf Urine Microscopic WBC (0-3) per hpf Ur Squamous Epith Cells (None-Few) per lpf Urine Bacteria (None-Few) per hpf Hyaline Casts (None-Few) per lpf Ur Culture Indicated? (NO) Blood Type Antibody Screen 11/13/17 11/13/17 11/13/17 Range/Units 09:14 09:14 09:31 WBC (4.3-11.1) K/mcL RBC (3.82-4.97) M/mcL Hgb (11.5-15.4) g/dL Hct (35.3-44.9) % MCV (83.0-100.0) fL MCH (28.0-33.3) pg MCHC (31.6-35.5) g/dL RDW (11.5-14.5) % Plt Count (140-400) K/mcL MPV (9.4-12.4) fL Immature Gran % (0-4) % Seg Neutrophils % % Lymphocytes % % Monocytes % % Eosinophils % % Basophils % % Neutrophils # (1.6-8.9) K/mcL Lymphocytes # (0.6-4.6) K/mcL Monocytes # (0.0-1.3) K/mcL Eosinophils # (0.0-0.6) K/mcL Basophils # (0.0-0.2) K/mcL PT (9.4-12.1) Seconds INR APTT (26.0-36.0) Seconds ABG pH 7.15 L* (7.32-7.45) pH Units ABG pCO2 112 H* (35-45) mmHg ABG pO2 445 H (85-104) mmHg ABG HCO3 39 H (21-27) mEq/L ABG Total CO2 43 H (20-26) mEq/L ABG O2 Saturation 100 H (95-98) % ABG Base Excess 5 H (-2 to 3) mEq/L Respiration Rate 12 O2 Delivery Device Adult Vent Blood Gas Modality ASSIST CONTROL Inspired O2 100.0 (1-15=lpm [id number]=%) Tidal Volume 500 cc PEEP 5 cm H2O Sodium (136-145) mEq/L Potassium (3.5-5.1) mEq/L Chloride (98-107) mEq/L Carbon Dioxide (23-29) mEq/L BUN (8-23) mg/dL Creatinine (0.60-1.20) mg/dL Est GFR ( Amer) (> 60) Est GFR (Non-Af Amer) (> 60) BUN/Creatinine Ratio (6-26) Glucose (70-105) mg/dL Calculated Osmolality (280-300) Lactic Acid (0.5-2.2) mmol/L Calcium (8.6-10.3) mg/dL Phosphorus (2.7-4.5) mg/dL Magnesium (1.6-2.6) mg/dL Total Bilirubin (0.3-1.0) mg/dL Direct Bilirubin (0.0-0.2) mg/dL Indirect Bilirubin (0.0-1.2) mg/dL AST (13-39) Units/L ALT (7-52) Units/L Alkaline Phosphatase (34-104) Units/L Troponin I (< 0.04) ng/mL B-Natriuretic Peptide (Less than 100) pg/mL Serum Total Protein (6.4-8.9) g/dL Albumin (3.5-5.7) g/dL Globulin (2.4-3.5) g/dL Albumin/Globulin Ratio (1.1-2.2) Lipase (11-82) Units/L Beta-Hydroxybutyric Acd 0.31 H (0.02-0.27) mmol/L Urine Color (Yellow) Urine Clarity (Clear) Urine pH (5.0-8.0) pH Units Ur Specific [place] (1.010-1.025) Urine Protein (Neg-Trace) mg/dL Urine Glucose (UA) (Normal) mg/dL Urine Ketones (Negative) mg/dL Urine Blood (Negative) Urine Nitrite (Negative) Urine Bilirubin (Negative) Urine Urobilinogen (Normal) mg/dL Ur Leukocyte Esterase (Negative) Urine Microscopic RBC (0-3) per hpf Urine Microscopic WBC (0-3) per hpf Ur Squamous Epith Cells (None-Few) per lpf Urine Bacteria (None-Few) per hpf Hyaline Casts (None-Few) per lpf Ur Culture Indicated? (NO) Blood Type O POSITIVE Antibody Screen NEGATIVE - Radiology Data Radiology results reviewed: Yes I reviewed the patient's radiology results. - EKG Data EKG #1 EKG attestation: Yes I reviewed and interpreted this EKG. EKG results narrative: sinus tachycadia with rate of 120. NO STEMI. normal intervals. no change from . 0911
[2017-11-13] MEDS: 0.9 % Sodium Chloride 1,000 ML IVC SCH ×2 (10:17→13:55)
[2017-11-13] MEDS ORDERED: 0.9 % Sodium Chloride 500 ML IVC ONE (11:32)
[2017-11-13] MEDS ORDERED: *HR* Midazolam HCl 2 MG/2 ML VIAL IVP ONE (11:39)
[2017-11-13] MEDS ORDERED: *HR* FentaNYL (PF) 100 MCG/2 ML VIAL IVP ONE (11:40)
[2017-11-13] MEDS ORDERED: *HR* Midazolam HCl 2 MG/2 ML VIAL ONE (11:41)
[2017-11-13] MEDS ORDERED: Artificial Tears SOLN 15 ML BOTTLE BOTH EYES PRN (13:42)
[2017-11-13] MEDS ORDERED: Naloxone 0.4 MG/ML INJ IVP PRN (13:45)
[2017-11-13 13:46] LABS: ABG Base Excess 5 mEq/L (-2 to 3); ABG HCO3 37 mEq/L (21-27); ABG Oxygen Saturation 94 % (95-98); ABG PCO2 99 mmHg (35-45); ABG PH 7.19 pH Units (7.32-7.45); ABG PO2 93 mmHg (85-104); ABG TCO2 40 mEq/L (20-26); Blood Gas Modality VC; Blood Gas PEEP 5 cm H2O; Blood Gas Respiration Rate 12; Blood Gas VT 500 cc
--- NOTE | 2017-11-13 13:55 | Sepsis Event Note ---
Sepsis Reassessment Note - Evaluation Sepsis Screen: No Definite Risk Current Stage of Sepsis: sepsis Possible Source of Sepsis: pulmonary - Focused Exam Date of Encounter: 11/13/17 Time of Encounter: 13:53 Vital Signs: Vital Signs Temp Pulse Resp BP Pulse Ox 11/13/17 13:25 89 11/13/17 13:00 98.1 F 93 12 100/65 99 11/13/17 11:59 89 12 99 Respiratory Exam: Present: wheezes, patient mechanically Cardiovascular Exam: Present: tachycardia Capillary Refill: > 2 seconds Peripheral Pulse Strength: 3+ normal Peripheral Pulse Location: Radial Skin Exam: unremarkable - Reassessment Comments Comments: Patient has possible sepsis with leukocytosis, tachycardia and presumed source to be sinusitis/pneumonia. Patient received 30 mL/kg of IV fluids, blood pressure stable, lactic acid is normal. Blood cultures have been drawn and are pending, sputum culture pending. Antibiotics initiated by the emergency department. No evidence of progression to severe sepsis or septic shock.
[2017-11-13] MEDS: Dexmedetomidine HCl 400 MCG/100 ML MLS IVC SCH (14:00)
[2017-11-13] MEDS ORDERED: Albuterol 2.5 MG/3 ML NEBULIZER IH PRN (14:02)
[2017-11-13] MEDS ORDERED: Ringers Solution, Lactated 1,000 ML ONE (14:12)
--- NOTE | 2017-11-13 14:13 | Pulmonology History & Physical ---
<Tanner Perera W - Last Filed: 11/13/17 16:59> Date of Encounter: 11/13/17 History of Present Illness HPI: Ms. Cook is a 67 year old female Medications and Allergies Ipratropium/Albuterol Neb [Duoneb] 3 ml IH QID PRN 08/12/15 [History] Omeprazole [PriLOSEC] 20 mg PO DAILY 08/12/15 [History] Aspirin 81 mg PO DAILY tab.chew 04/06/16 [Rx] Atorvastatin [Lipitor] 40 mg PO HS 01/26/17 [History] Metoprolol Succinate 100 mg PO DAILY 01/26/17 [History] Escitalopram [Lexapro] 5 - 10 mg PO DAILY 04/25/17 [History] Theophylline Anhydrous [Theophylline] 200 mg PO DAILY 04/25/17 [History] Tiotropium [Spiriva] 18 mcg IH DAILY 04/25/17 [History] ALPRAZolam [Xanax 0.5 MG Tablet] 0.25 - 0.5 mg PO BID PRN 11/13/17 [History] Cholecalciferol (D-3) [Vitamin D] 2,000 unit PO DAILY 11/13/17 [History] Fluticasone/Salmeterol [Advair 500-50 Diskus] 1 puff IH BID 11/13/17 [History] Losartan/Hydrochlorothiazide [Hyzaar 100-25 Tablet] 1 tab PO DAILY 11/13/17 [ History] Potassium Chloride 10 meq PO BID 11/13/17 [History] 3 Allergy/AdvReac Type Severity Reaction Status Date / Time No Known Allergies Allergy Verified 11/13/17 11:09 All Systems: The remainder of the systems were reviewed and are negative Physical Examination Vital Signs: Vital Signs, Last 4 Hours Temp Pulse Resp BP Pulse Ox 11/13/17 15:00 79 20 90/44 94 11/13/17 14:29 24 59/42 100 11/13/17 14:00 66 23 50/27 100 11/13/17 13:25 89 11/13/17 13:00 98.1 F 79 16 67/53 100 Results - Laboratory Findings CBC and BMP: 11/13/17 09:14 11/13/17 09:14 ABG ABG pH 7.31 pH Units (7.32-7.45) L D 11/13/17 14:45 ABG pCO2 68 mmHg (35-45) H D 11/13/17 14:45 ABG pO2 68 mmHg (85-104) L 11/13/17 14:45 ABG O2 Saturation 91 % (95-98) L 11/13/17 14:45 PT/INR, D-dimer PT 10.6 Seconds (9.4-12.1) 11/13/17 09:14 Abnormal lab findings: Abnormal lab results WBC 16.4 K/mcL (4.3-11.1) H 11/13/17 09:14 Hct 46.8 % (35.3-44.9) H 11/13/17 09:14 MCHC 31.4 g/dL (31.6-35.5) L 11/13/17 09:14 Neutrophils # 12.6 K/mcL (1.6-8.9) H 11/13/17 09:14 APTT 39.4 Seconds (26.0-36.0) H 11/13/17 09:14 ABG pH 7.31 pH Units (7.32-7.45) L D 11/13/17 14:45 ABG pCO2 68 mmHg (35-45) H D 11/13/17 14:45 ABG pO2 68 mmHg (85-104) L 11/13/17 14:45 ABG HCO3 35 mEq/L (21-27) H 11/13/17 14:45 ABG Total CO2 37 mEq/L (20-26) H 11/13/17 14:45 ABG O2 Saturation 91 % (95-98) L 11/13/17 14:45 ABG Base Excess 6 mEq/L (-2 to 3) H 11/13/17 14:45 Sodium 132 mEq/L (136-145) L 11/13/17 09:14 Chloride 89 mEq/L (98-107) L 11/13/17 09:14 Carbon Dioxide 36 mEq/L (23-29) H 11/13/17 09:14 Glucose 300 mg/dL (70-105) H 11/13/17 09:14 POC Glucose 126 mg/dL (70-99) H 11/13/17 13:00 Phosphorus 6.6 mg/dL (2.7-4.5) H 11/13/17 09:14 Alkaline Phosphatase 141 Units/L (34-104) H 11/13/17 09:14 Beta-Hydroxybutyric Acd 0.31 mmol/L (0.02-0.27) H 11/13/17 09:14 Urine Clarity Cloudy (Clear) A 11/13/17 09:14 Ur Specific [place] 1.027 (1.010-1.025) H 11/13/17 09:14 Urine Protein >=1000 mg/dL (Neg-Trace) H 11/13/17 09:14 Urine Glucose (UA) 250 mg/dL (Normal) H 11/13/17 09:14 Urine Blood Trace (Negative) H 11/13/17 09:14 Urine Microscopic RBC 5-15 per hpf (0-3) H 11/13/17 09:14 Urine Microscopic WBC 15-30 per hpf (0-3) H 11/13/17 09:14 Ur Squamous Epith Cells Moderate per lpf (None-Few) H 11/13/17 09:14 - Attending Attestation I examined this patient and my medical decision-making was reviewed with the Resident Physician. I agree with the documented findings, disposition and treatment plan as described except to the extent set forth below. We independently had [id number] contact with the patient I spent 35min of Critical Care time with this patient. It involved decision making of high complexity to assess, manipulate, and support vital organ system failure and/or to prevent further life threatening deterioration of the patient' s condition. The time involved in the performance of separately reportable procedures was not counted toward critical care time. Patient seen and examined at bedside Labs, radiology, chart personally reviewed. 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: Acute encephalopathy likely secondary to CO2 narcosis with improvement in ventilation patient is able to move all extremities without focal deficit head CT without acute process Pulm: Acute on chronic hypoxic hypercapnic respiratory failure secondary to COPD exacerbation leading to mechanical ventilation acceptable gas exchange now after adjustment of ventilator to in increase minute ventilation low tidal volume ventilatory strategy employed peak inspiratory pressures are acceptable no significant intrinsic PEEP she will need aggressive bronchodilators and steroids for COPD exacerbation likely mediated by sinusitis Cards: Hypotension without shock physiology suspect this is a combination acidosis sedative and adduction agents for intubation. I evaluated the patient' s cardiac function with bedside ultrasonography with the resident physician shows that LV and RV are grossly within normal limits without large pericardial effusion IVC is dilated without inspiratory collapse. Troponin within normal limits ECG without evidence of STEMI. We will trend lactate and troponin she has a CVC placed for norepinephrine which will wean to keep map around 60 GI: GI prophylaxis given Nutrition: Nothing by mouth for now Renal: UOP Monitored, Cont to Trend sCr and monitor Electrolytes. ID: Treating broadly for possibility pneumonia or other etiology of sepsis I suspect this is less likely and will be able to de-escalate over the next 24 hours risk for infection panel sent blood sputum and urine cultures of been obtained Heme/Onc: DVT prophylaxis given Endo: Glucose Monitored Integ/MSK: Skin Care per routine ICU Nursing Protocol to prevent ulcers. Lines: All lines examined without evidence of infection : Dispo: Remain in ICU for critical illness CODE: Full code I updated the patient's adult children A can at the bedside in the ICU all questions were answered <Wolfgang Tsai - Last Filed: 11/13/17 21:32> Date of Encounter: 11/13/17 Time of Encounter: 13:00 Assessment and Plan (1) Acute metabolic encephalopathy Current visit: Yes Status: Acute - patient presented altered when she was brought to the ED (GCS : 7) - not responding to pain or voice and is moaning at the bedside in the ED - likely secondary to her acute hypercapnic respiratory failure, it could also be overdosing theophylline and Xanax which patient takes as her home medication. - patient was intubated in the ED, PEEP : 5 FiO2: 40%. Currently she seems to be moving all her 4 extremities. She can be weaned off precedex. PRN Fentanyl if she shows any signs of discomfort (like gagging) secondary to intubation - she will undergo spontaneous breathing trial tomorrow (2) Acute on chronic respiratory failure with hypercapnia Current visit: No Status: Acute - secondary to her Hx of Chronic COPD- on 2L oxygen at home. patient has a Hx of extensive smoking (1/2- 2 packs/day for 50 yrs) - ABG in the ED showed pH 7.15, pCO2: 112, HCO3: 39. - patient currently intubated and sedated. She's on pressor (Levofed) . Goal MAP > 65. - duonebs q4h, IV steroids and Abx (levaquin 750mg) . Trending lactate q6h. - will repeat ABG in AM (3) Shock Current visit: Yes Status: Acute -patient was hypotensive on admission, she is s/p 4L of 0.9% NACl, WBC: 16.4, RR:23, Currently afebrile -etiology for shock currently unsure. Could be a septic shock secondary to her sinus infection which she has had or few days, patient had a negative UA on admission, she doesn't appear to have pneumonia-no egophony, no tactile fremitus , afebrile. Patient presented with hypotensive state in the ED - she could probably be showing signs of adrenal insufficiency secondary to her steroid use in the past for COPD. Patient's currently on 60 mg methylprednisone. -sputum and blood cultures are pending, her MRSA swab was negative and Resp. Infection Panel was positive entero/rhino virus -Currently on Rocephin (2000mg ) and Azithromycin (500mg). -Trend lactate and troponins q6h. - Current BP 100/60. if she continues to be hypotensive , we can discontinue methylprednisolone and put her on hydrocortisone (4) HTN (hypertension) Current visit: No Status: Chronic -patient has a Hx of HTN, she's on lisinopril and metoprolol at home -currently we're holding off on her home blood medications -patient is currently hypotensive - we will continue to monitor her BP status Qualifiers: Hypertension type: essential hypertension Qualified Code(s): I10 - Essential (primary) hypertension (5) Anxiety Current visit: No Status: Chronic -patiet has a Hx of anxiety - She take home Xanax - currently we are holding off on all her PO medications (6) DVT prophylaxis Current visit: No Status: Acute - sub 40 mg Lovenox History of Present Illness Chief complaint: Acute hypercapnic respiratory failure HPI: Ms. Cook is a 67 year old female with a PMHx of COPD, HTN,anxiety , OA, [place] who was brought to the ED because of altered mental status. Initial workup in the ED was negative for any infarct, intracranial mass, hemorrhage or any evidence of PE in the chest CT. her troponins were within normal limits without any evidence of any ST elevations. According to the patient's family, patient had been complaining of a sinus infection and nausea for the past few days . She woke up at 6am very short of breath and became unresponsive as the family were in the process of taking her to the doctor. The [facility]ed[facility] and brought her to the ED where she was intubated because of acute respiratory failure. Her initial ABG in the ED showed respiraotry acidosis : pH 7.15, pCO2: 112, HCO3: 39. Patient's family denies any recent Hx of any bacterial, or viral infection, or any recent travels. They deny her complaining of worsening cough, increased sputum production or requiring more dependence home oxygen (2L) . Patient uses Advair and Spiriva at home for her COPD . Patient has a Hx of similar hospital admission in May when she was intubated for similar reasons. Initial workup has been negative for any signs of UTI, or PNA Past Med Surg Social Fam HX - Past Medical History Medical history: COPD, hypertension Additional medical history: unsure about CHF, recent falls Psychiatric history: anxiety - Past Surgical History Surgical History: hysterectomy, orthopedic, other - Social History Smoking Status: Current every day smoker Packs per day: 1 Smokeless Tobacco Status: No Alcohol use: none Drug use: none - Family History Mother History Unknown: Yes Family Member Ethnicity: Non- Living Status: Hx Family Cardiac Disorders: Yes Hx Family Cancer: Yes (Colon) Hx Family Neurologic Disorders: Yes (cva) Hx Family HEENT Disorders: Yes (macular degeneration) Father Adopted: No Family Member Ethnicity: Non- Living Status: Hx Family Cardiac Disorders: Yes Hx Family Respiratory Disorders: No Hx Family Cancer: Yes (colon ca 1979) Hx Family GI Disorders: No Hx Family Endocrine Disorder: No Hx Family Neuromuscular Disorders: No Hx Family Neurologic Disorders: Yes (CVA with left side weakness) Hx Family HEENT Disorders: Yes (macular degeneration) Hx Family Autoimmune Disorders: No ROS unobtainable: due to endotracheal tube All Systems: The remainder of the systems were reviewed and are negative - Constitutional Constitutional: as per HPI - Cardiovascular Cardiovascular: as per HPI - Respiratory Respiratory: as per HPI - Gastrointestinal Gastrointestinal: as per HPI - Genitourinary Genitourinary: as per HPI - Neurological Neurological: as per HPI Physical Examination Vital Signs: Vital Signs, Last 4 Hours Temp Pulse Resp BP Pulse Ox 11/13/17 13:25 89 11/13/17 13:00 98.1 F 93 12 100/65 99 11/13/17 11:59 89 12 99 General appearance: other (intubated ) Effort: very labored Auscultation: bilateral: wheezes Cardiovascular: other (tachycardic, no gallops, murmurs or rubs) Gastrointestinal: soft, non-tender, non-distended Extremities: no cyanosis, no edema, no clubbing Results - Laboratory Findings CBC and BMP: 11/13/17 09:14 11/13/17 09:14 ABG ABG pH 7.19 pH Units (7.32-7.45) L* 11/13/17 13:37 ABG pCO2 99 mmHg (35-45) H* 11/13/17 13:37 ABG pO2 93 mmHg (85-104) D 11/13/17 13:37 ABG O2 Saturation 94 % (95-98) L 11/13/17 13:37 PT/INR, D-dimer PT 10.6 Seconds (9.4-12.1) 11/13/17 09:14 Abnormal lab findings: Abnormal lab results WBC 16.4 K/mcL (4.3-11.1) H 11/13/17 09:14 Hct 46.8 % (35.3-44.9) H 11/13/17 09:14 MCHC 31.4 g/dL (31.6-35.5) L 11/13/17 09:14 Neutrophils # 12.6 K/mcL (1.6-8.9) H 11/13/17 09:14 APTT 39.4 Seconds (26.0-36.0) H 11/13/17 09:14 ABG pH 7.19 pH Units (7.32-7.45) L* 11/13/17 13:37 ABG pCO2 99 mmHg (35-45) H* 11/13/17 13:37 ABG HCO3 37 mEq/L (21-27) H 11/13/17 13:37 ABG Total CO2 40 mEq/L (20-26) H 11/13/17 13:37 ABG O2 Saturation 94 % (95-98) L 11/13/17 13:37 ABG Base Excess 5 mEq/L (-2 to 3) H 11/13/17 13:37 Sodium 132 mEq/L (136-145) L 11/13/17 09:14 Chloride 89 mEq/L (98-107) L 11/13/17 09:14 Carbon Dioxide 36 mEq/L (23-29) H 11/13/17 09:14 Glucose 300 mg/dL (70-105) H 11/13/17 09:14 POC Glucose 126 mg/dL (70-99) H 11/13/17 13:00 Phosphorus 6.6 mg/dL (2.7-4.5) H 11/13/17 09:14 Alkaline Phosphatase 141 Units/L (34-104) H 11/13/17 09:14 Beta-Hydroxybutyric Acd 0.31 mmol/L (0.02-0.27) H 11/13/17 09:14 Urine Clarity Cloudy (Clear) A 11/13/17 09:14 Ur Specific [place] 1.027 (1.010-1.025) H 11/13/17 09:14 Urine Protein >=1000 mg/dL (Neg-Trace) H 11/13/17 09:14 Urine Glucose (UA) 250 mg/dL (Normal) H 11/13/17 09:14 Urine Blood Trace (Negative) H 11/13/17 09:14 Urine Microscopic RBC 5-15 per hpf (0-3) H 11/13/17 09:14 Urine Microscopic WBC 15-30 per hpf (0-3) H 11/13/17 09:14 Ur Squamous Epith Cells Moderate per lpf (None-Few) H 11/13/17 09:14
[2017-11-13] MEDS: Ipratropium/Albuterol Neb 3 ML IH SCH ×3 (14:28→23:41)
[2017-11-13 15:03] LABS: ABG Base Excess 6 mEq/L (-2 to 3); ABG HCO3 35 mEq/L (21-27); ABG Oxygen Saturation 91 % (95-98); ABG PCO2 68 mmHg (35-45); ABG PH 7.31 pH Units (7.32-7.45); ABG PO2 68 mmHg (85-104); ABG TCO2 37 mEq/L (20-26); Blood Gas Modality VC; Blood Gas PEEP 5 cm H2O; Blood Gas Respiration Rate 24; Blood Gas VT 420 cc
--- NOTE | 2017-11-13 16:14 | Procedure Note ---
<Tanner Perera - Last Filed: 11/13/17 17:03> - Attending Attestation I was present for the entire procedure which was performed skillfully by the resident physician without immediate untoward events. <Wolfgang Tsai - Last Filed: 11/13/17 21:34> Date of procedure: 11/13/17 Pre-op diagnosis: acute hypercapnic respiratory failure Post-op diagnosis: same Procedure: Consent was obtained, the patient was placed in supine position and the area was prepped and draped in a sterile fashion. The area over the right IJ was anesthetized using 3cc's of 1% lidocaine. Using the sonosite, the right IJ was identified, and a cook needle was used to cannulate the vein. Dark, non- pulsatile blood was seen. Using the Seldinger technique, a guidewire was passed through the needle and the needle was withdrawn. A small incision was made and a dilator sheath was then passed over the guidewire and then removed. The catheter was then placed as the guidewire was removed. The catheter was then sutured in place. All 3 ports had good return, and flushed with normal saline easily. The patient tolerated the procedure well. A post-procedure chest x-ray showed the catheter to be in the right place. Surgeon: Wolfgang Tsai Was there an rehabilitation assistant present: Yes Certified Nursing Assistant Instructor: Renato Erickson Estimated blood loss (cc): 5 Specimen: none Pathology: none sent Condition: stable
[2017-11-13 17:05] LABS: ABG Base Excess 7 mEq/L (-2 to 3); ABG HCO3 35 mEq/L (21-27); ABG Oxygen Saturation 91 % (95-98); ABG PCO2 64 mmHg (35-45); ABG PH 7.35 pH Units (7.32-7.45); ABG PO2 66 mmHg (85-104); ABG TCO2 37 mEq/L (20-26); Blood Gas Modality VC; Blood Gas PEEP 5 cm H2O; Blood Gas Respiration Rate 20; Blood Gas VT 420 cc
[2017-11-13] MEDS ORDERED: cefTRIAXone 2,000 MG in Water for inj. (sterile) 20 ML 20 ML IVP ONE (17:13)
[2017-11-13] MEDS: Artificial Tears SOLN 15 ML BOTTLE BOTH EYES SCH ×2 (17:33→21:22)
[2017-11-13] MEDS: methylPREDNISolone 125 MG/2 ML VIAL IVP SCH (17:33)
[2017-11-13] MEDS: *HR* Enoxaparin 40 MG/0.4 ML SYRINGE SQ SCH (17:34)
[2017-11-13] MEDS: Norepinephrine 4 MG in D5% in Water 250 ML IVC SCH (17:34)
[2017-11-13] MEDS: Azithromycin 500 MG in D5% in Water 250 ML IVPB SCH (17:42)
[2017-11-13] MEDS: *HR* FentaNYL (PF) 100 MCG/2 ML VIAL IVP PRN ×2 (18:26→21:21)
[2017-11-13 18:32] LABS: Adenovirus Not Detected (Not Detect); Bordetella Pertussis Not Detected (Not Detect); Chlamydophila pneumoniae Not Detected (Not Detect); Coronavirus 229E Not Detected (Not Detect); Coronavirus HKU1 Not Detected (Not Detect); Coronavirus NL63 Not Detected (Not Detect); Coronavirus OC43 Not Detected (Not Detect); Human Metapneumovirus Not Detected (Not Detect); Human Rhinovirus/Enterovirus DETECTED (Not Detect); Influenza A Subtype 2009 H1 Not Detected (Not Detect); Influenza A Untypeable Not Detected (Not Detect); Influenza B Not Detected (Not Detect); Mycoplasma pneumoniae Not Detected (Not Detect); Parainfluenza Virus 1 Not Detected (Not Detect); Parainfluenza Virus 2 Not Detected (Not Detect); Parainfluenza Virus 3 Not Detected (Not Detect); Parainfluenza Virus 4 Not Detected (Not Detect); Respiratory Syncytial Virus Not Detected (Not Detect)
[2017-11-13] MEDS: Chlorhexidine Rinse 15 ML MOUTHWASH MM SCH (21:22)
[2017-11-13] MEDS: Budesonide/Formoterol 160/4.5 1 PUFF INH IH SCH (21:51)
--- NOTE | 2017-11-13 21:59 | Electrocardiograph Report ---
[place] [facility] Test Date: 2017-11-13 Pat Name: Debbie Cook Department: Room: 10 Gender: F Toe Pounder: : 1950 Requested By: Chaya Rothman Order Number: [id number] Reading MD: Siva Thomas Measurements Intervals [place] Rate: 120 P: 85 NC: 154 QRS: 88 QRSD: 95 T: 69 QT: 338 QTc: 478 Interpretive Statements Sinus tachycardia Borderline prolonged QT interval Electronically Signed On 11-13-2017 21:57:32 EDT by Siva Thomas
[2017-11-14] MEDS: Dexmedetomidine HCl 400 MCG/100 ML MLS IVC SCH ×3 (02:41→16:46)
[2017-11-14] MEDS: methylPREDNISolone 125 MG/2 ML VIAL IVP SCH ×4 (02:41→17:31)
[2017-11-14] MEDS: *HR* FentaNYL (PF) 100 MCG/2 ML VIAL IVP PRN ×2 (03:27→04:48)
[2017-11-14] MEDS: Artificial Tears SOLN 15 ML BOTTLE BOTH EYES SCH ×5 (03:27→16:46)
[2017-11-14 03:50] LABS: Hematocrit 38.8 % (35.3-44.9); Immature Granulocytes % 0.3 % (0-4); Lymphocytes # 0.3 K/mcL (0.6-4.6); Lymphocytes % 4.3 %; Mean Corpuscular HGB Conc 32.5 g/dL (31.6-35.5); Mean Corpuscular Hemoglobin 30.7 pg (28.0-33.3); Mean Corpuscular Volume 94.6 fL (83.0-100.0); Mean Platelet Volume 9.6 fL (9.4-12.4); Monocytes # 0.1 K/mcL (0.0-1.3); Monocytes % 0.9 %; Platelet Count 209 K/mcL (140-400); Red Cell Distribution Width 13.4 % (11.5-14.5); Segmented Neutrophils % 94.5 %
[2017-11-14 03:53] LABS: Hemoglobin 12.6 g/dL (11.5-15.4); Neutrophils # 6.1 K/mcL (1.6-8.9)
[2017-11-14] MEDS: Ipratropium/Albuterol Neb 3 ML IH SCH ×6 (03:53→23:08)
[2017-11-14 04:09] LABS: BUN/Creatinine Ratio 19 (6-26); Blood Urea Nitrogen 15 mg/dL (8-23); Calcium 9.3 mg/dL (8.6-10.3); Carbon Dioxide 34 mEq/L (23-29); Chloride 94 mEq/L (98-107); Glucose 187 mg/dL (70-105); Magnesium 1.4 mg/dL (1.6-2.6); Osmolality,Calculated 284 (280-300); Phosphorous 3.1 mg/dL (2.7-4.5); Potassium 3.5 mEq/L (3.5-5.1); Sodium 134 mEq/L (136-145); eGFR For Non-African Americans > 60 (> 60)
[2017-11-14 05:26] LABS: ABG Base Excess 9 mEq/L (-2 to 3); ABG HCO3 37 mEq/L (21-27); ABG Oxygen Saturation 89 % (95-98); ABG PCO2 65 mmHg (35-45); ABG PH 7.37 pH Units (7.32-7.45); ABG PO2 61 mmHg (85-104); ABG TCO2 39 mEq/L (20-26); Blood Gas Modality ASSIST CONTROL; Blood Gas PEEP 5 cm H2O; Blood Gas Respiration Rate 20; Blood Gas VT 420 cc
[2017-11-14] MEDS: Budesonide/Formoterol 160/4.5 1 PUFF INH IH SCH ×2 (07:28→23:08)
[2017-11-14] MEDS: *HR* Enoxaparin 40 MG/0.4 ML SYRINGE SQ SCH (07:48)
[2017-11-14] MEDS: Chlorhexidine Rinse 15 ML MOUTHWASH MM SCH (07:48)
[2017-11-14] MEDS: Furosemide 20 MG/2 ML VIAL IVP SCH (07:48)
--- NOTE | 2017-11-14 08:03 | Pulmonology Progress Note ---
<Wolfgang Tsai - Last Filed: 11/14/17 17:15> Date of Encounter: 11/14/17 Time of Encounter: 08:00 Assessment and Plan (1) Acute metabolic encephalopathy Current Visit: Yes Status: Acute 11/14/2017: - currently resolved- patient is A&O*3, no acute distress - causes- likely hypercanic respiratory failure- patient most recent ABG showed compensatory respiratory acidosis pH: 7.37, pCO2: 65, HCO3- :37 , which is probably her baseline status (with her Hx of COPD) - she has been extubated and is currently on high flow oxygen (10L) - with her Hx of Xanax use for her anxiety, we will start her on low dose of Xanax to prevent any BDZ withdrawal symptoms. 11/13/2017 - patient presented altered when she was brought to the ED (GCS : 7) - not responding to pain or voice and is moaning at the bedside in the ED - likely secondary to her acute hypercapnic respiratory failure, it could also be overdosing theophylline and Xanax which patient takes as her home medication. - patient was intubated in the ED, PEEP : 5 FiO2: 40%. Currently she seems to be moving all her 4 extremities. She can be weaned off precedex. PRN Fentanyl if she shows any signs of discomfort (like gagging) secondary to intubation - she will undergo spontaneous breathing trial tomorrow (2) Acute on chronic respiratory failure with hypercapnia Current Visit: No Status: Acute 11/14/2017 - secondary to her Hx of Chronic COPD- on 2L oxygen at home. patient has a Hx of extensive smoking and is a current smoker(60 pack years) - Her most recent ABG showed Compensated Respiratry Acidosis : pH: 7.37, PCO2: 65, PO2: 61 HCO3: 37 - Patient has been weaned off of the Ventilator this morning and currently on high flow oxygen (10L) - she contineus to get duonebs q4h, IV steroids and Abx . - 11/13/2017 - secondary to her Hx of Chronic COPD- on 2L oxygen at home. patient has a Hx of extensive smoking (60 pack years) - ABG in the ED showed pH 7.15, pCO2: 112, HCO3: 39. - patient currently intubated and sedated. She's on pressor (Levofed) . Goal MAP > 65. - duonebs q4h, IV steroids and Abx . Trending lactate q6h. - will repeat ABG in AM (3) Shock Current Visit: Yes Status: Acute 11/14/2017: - her shock has resolved. She has been extubated. Cause is likely distributive- secondary to potential sinus infection , her infective PCR was positive for entero/rhinovirus. She is s/p 4L of 0.9% NaCL. Patient had a Hx of Pneumonia in the past and was intubated- although during this admission, her chest CT did not show any consolidation and showed no classical symptom of PNA ( Fever, chills or SOB) - we are covering her for atypical PNA with Rocephin (2000mg) and Azithromycin (500mg BID). - Physical exam shows \mild wheezing than yesterday. No rales, JVD or S3 sounds 11/13/2017 -patient was hypotensive on admission, she is s/p 4L of 0.9% NACl, WBC: 16.4, RR :23, Currently afebrile -etiology for shock currently unsure. Could be a septic shock secondary to her sinus infection which she has had or few days, patient had a negative UA on admission, she doesn't appear to have pneumonia-no egophony, no tactile fremitus , afebrile. Patient presented with hypotensive state in the ED - she could probably be showing signs of adrenal insufficiency secondary to her steroid use in the past for COPD. Patient's currently on 60 mg methylprednisone. -sputum and blood cultures are pending, her MRSA swab was negative and Resp. Infection Panel was positive entero/rhino virus -Currently on Rocephin (2000mg ) and Azithromycin (500mg). -Trend lactate and troponins q6h. - Current BP 100/60. if she continues to be hypotensive , we can discontinue methylprednisolone and put her on hydrocortisone (4) HTN (hypertension) Current Visit: No Status: Chronic -patient has a Hx of HTN, she's on lisinopril and metoprolol at home - She was hypotensive on admission was found to be is septic shock. Her most recent BP is 132/67. - We will restart her home medications Qualifiers: Hypertension type: essential hypertension Qualified Code(s): I10 - Essential (primary) hypertension (5) Anxiety Current Visit: No Status: Chronic -patient has a Hx of anxiety- takes Xanax at home - We are starting her back on Xanax to prevent BDZ withdrawal symptoms ( agitation, irritability) (6) DVT prophylaxis Current Visit: No Status: Acute - sub 40 mg Lovenox Subjective Principal diagnosis: altered mental status Interval history: no acute events overnight. Patient was weaned off the ventilator ths morning on C-PAP and currently on high flow oxygen (10L). Her BP has normalized and her leukocytosis has resolved. She's on day 2 of her Abx (Azithroycin 500mg and Rocephin qd ) . Her nasal swab was negative for MRSA and the Resp. Infectious Panel was positive for Enter/Rhino Virus which goes along with the patient's complain of sinus infection for the past few days. Patient is A&O*3, in no acute distress. She is getting weaned off her Precedex . Objective PUL Vital signs: Last Vital Signs Temp 98.2 F 11/14/17 07:43 Pulse 102 11/14/17 07:00 Resp 23 11/14/17 07:33 BP 135/60 11/14/17 07:33 Pulse Ox 91 11/14/17 07:33 General appearance: no acute distress Auscultation: bilateral: wheezes (mild wheezing no rales or ronchi) Percussion: bilateral: not dull Cardiovascular: regular rate and rhythm (no gallops, murmurs or rubs) Gastrointestinal: soft, non-tender, non-distended Extremities: no cyanosis, no edema, no clubbing Ventilator Settings Ventilator Settings: Ventilator Settings, Last 8 Hours Ventilator Tidal Volume 420 Setting Ventilator Tidal Volume 420 Setting Ventilator Tidal Volume 420 Setting Ventilator Tidal Volume 420 Setting Ventilator Tidal Volume 420 Setting Ventilator Tidal Volume 420 Setting Ventilator Tidal Volume 420 Setting Ventilator Tidal Volume 420 Setting Ventilator Tidal Volume 420 Setting Ventilator Tidal Volume 420 Setting Ventilator Tidal Volume 420 Setting Ventilator Respiratory Rate 20 Setting Ventilator Respiratory Rate 20 Setting Ventilator Respiratory Rate 20 Setting Ventilator Respiratory Rate 20 Setting Ventilator Respiratory Rate 20 Setting Ventilator Respiratory Rate 20 Setting Ventilator Respiratory Rate 20 Setting Ventilator Respiratory Rate 20 Setting Ventilator Respiratory Rate 20 Setting Ventilator Respiratory Rate 20 Setting Ventilator Respiratory Rate 20 Setting Actual Respiratory Rate 23 Actual Respiratory Rate 23 Actual Respiratory Rate 23 Actual Respiratory Rate 22 Actual Respiratory Rate 23 Actual Respiratory Rate 21 Actual Respiratory Rate 21 Actual Respiratory Rate 21 Actual Respiratory Rate 21 Actual Respiratory Rate 21 Actual Respiratory Rate 21 Actual Respiratory Rate 21 Actual Respiratory Rate 21 Positive End Expiratory 5 Pressure Positive End Expiratory 5 Pressure Positive End Expiratory 5 Pressure Positive End Expiratory 5 Pressure Positive End Expiratory 5 Pressure Positive End Expiratory 5 Pressure Positive End Expiratory 5 Pressure Positive End Expiratory 5 Pressure Positive End Expiratory 5 Pressure Positive End Expiratory 5 Pressure Positive End Expiratory 5 Pressure Positive End Expiratory 5 Pressure Peak Inspiratory Airway 11 Pressure Peak Inspiratory Airway 11 Pressure Peak Inspiratory Airway 11 Pressure Peak Inspiratory Airway 21 Pressure Peak Inspiratory Airway 19 Pressure Peak Inspiratory Airway 21 Pressure Peak Inspiratory Airway 21 Pressure Peak Inspiratory Airway 23 Pressure Peak Inspiratory Airway 21 Pressure Peak Inspiratory Airway 21 Pressure Peak Inspiratory Airway 21 Pressure Peak Inspiratory Airway 19 Pressure Peak Inspiratory Airway 21 Pressure Results - Laboratory Findings CBC and BMP: 11/14/17 03:30 11/14/17 03:30 ABG ABG pH 7.37 pH Units (7.32-7.45) 11/14/17 05:22 ABG pCO2 65 mmHg (35-45) H 11/14/17 05:22 ABG pO2 61 mmHg (85-104) L 11/14/17 05:22 ABG O2 Saturation 89 % (95-98) L 11/14/17 05:22 PT/INR, D-dimer PT 10.6 Seconds (9.4-12.1) 11/13/17 09:14 Abnormal lab findings: Abnormal lab results Lymphocytes # 0.3 K/mcL (0.6-4.6) L 11/14/17 03:30 APTT 39.4 Seconds (26.0-36.0) H 11/13/17 09:14 ABG pCO2 65 mmHg (35-45) H 11/14/17 05:22 ABG pO2 61 mmHg (85-104) L 11/14/17 05:22 ABG HCO3 37 mEq/L (21-27) H 11/14/17 05:22 ABG Total CO2 39 mEq/L (20-26) H 11/14/17 05:22 ABG O2 Saturation 89 % (95-98) L 11/14/17 05:22 ABG Base Excess 9 mEq/L (-2 to 3) H 11/14/17 05:22 Sodium 134 mEq/L (136-145) L 11/14/17 03:30 Chloride 94 mEq/L (98-107) L 11/14/17 03:30 Carbon Dioxide 34 mEq/L (23-29) H 11/14/17 03:30 Glucose 187 mg/dL (70-105) H 11/14/17 03:30 POC Glucose 154 mg/dL (70-99) H 11/13/17 23:32 Magnesium 1.4 mg/dL (1.6-2.6) L 11/14/17 03:30 Alkaline Phosphatase 141 Units/L (34-104) H 11/13/17 09:14 Troponin I 0.11 ng/mL (< 0.04) H* 11/14/17 03:30 Beta-Hydroxybutyric Acd 0.31 mmol/L (0.02-0.27) H 11/13/17 09:14 TSH 0.315 mcIU/mL (0.340-5.600) L 11/14/17 03:30 Urine Clarity Cloudy (Clear) A 11/13/17 09:14 Ur Specific [place] 1.027 (1.010-1.025) H 11/13/17 09:14 Urine Protein >=1000 mg/dL (Neg-Trace) H 11/13/17 09:14 Urine Glucose (UA) 250 mg/dL (Normal) H 11/13/17 09:14 Urine Blood Trace (Negative) H 11/13/17 09:14 Urine Microscopic RBC 5-15 per hpf (0-3) H 11/13/17 09:14 Urine Microscopic WBC 15-30 per hpf (0-3) H 11/13/17 09:14 Ur Squamous Epith Cells Moderate per lpf (None-Few) H 11/13/17 09:14 Entero/Rhino (PCR) DETECTED (Not Detect) A 11/13/17 17:30 - Microbiology Findings Microbiology Findings: Microbiology, Last 48 Hours 11/13/17 18:45 Sputum Culture - Preliminary Sputum - Clinical Findings Intake & Output: Intake & Output 11/13/17 11/14/17 11/14/17 23:59 07:59 15:59 Intake Total 355 / 355 138 / 138 Output Total 500 / 500 425 / 425 Balance -145 / -145 -287 / -287 Weight 93 kg Consult Discharge Plan - Plan Referrals: Dion Whitman MD [Primary Care Provider] - <Tanner Perera W - Last Filed: 11/14/17 19:01> Date of Encounter: 11/14/17 Objective PUL Vital signs: Last Vital Signs Temp 98.7 F 11/14/17 15:00 Pulse 114 11/14/17 18:00 Resp 20 11/14/17 18:48 BP 132/67 11/14/17 18:00 Pulse Ox 96 11/14/17 18:48 Results - Laboratory Findings CBC and BMP: 11/14/17 03:30 11/14/17 03:30 ABG ABG pH 7.37 pH Units (7.32-7.45) 11/14/17 05:22 ABG pCO2 65 mmHg (35-45) H 11/14/17 05:22 ABG pO2 61 mmHg (85-104) L 11/14/17 05:22 ABG O2 Saturation 89 % (95-98) L 11/14/17 05:22 PT/INR, D-dimer PT 10.6 Seconds (9.4-12.1) 11/13/17 09:14 Abnormal lab findings: Abnormal lab results Lymphocytes # 0.3 K/mcL (0.6-4.6) L 11/14/17 03:30 APTT 39.4 Seconds (26.0-36.0) H 11/13/17 09:14 ABG pCO2 65 mmHg (35-45) H 11/14/17 05:22 ABG pO2 61 mmHg (85-104) L 11/14/17 05:22 ABG HCO3 37 mEq/L (21-27) H 11/14/17 05:22 ABG Total CO2 39 mEq/L (20-26) H 11/14/17 05:22 ABG O2 Saturation 89 % (95-98) L 11/14/17 05:22 ABG Base Excess 9 mEq/L (-2 to 3) H 11/14/17 05:22 Sodium 134 mEq/L (136-145) L 11/14/17 03:30 Chloride 94 mEq/L (98-107) L 11/14/17 03:30 Carbon Dioxide 34 mEq/L (23-29) H 11/14/17 03:30 Glucose 187 mg/dL (70-105) H 11/14/17 03:30 POC Glucose 159 mg/dL (70-99) H 11/14/17 11:23 Alkaline Phosphatase 141 Units/L (34-104) H 11/13/17 09:14 Troponin I 0.11 ng/mL (< 0.04) H* 11/14/17 03:30 Beta-Hydroxybutyric Acd 0.31 mmol/L (0.02-0.27) H 11/13/17 09:14 TSH 0.315 mcIU/mL (0.340-5.600) L 11/14/17 03:30 Urine Clarity Cloudy (Clear) A 11/13/17 09:14 Ur Specific [place] 1.027 (1.010-1.025) H 11/13/17 09:14 Urine Protein >=1000 mg/dL (Neg-Trace) H 11/13/17 09:14 Urine Glucose (UA) 250 mg/dL (Normal) H 11/13/17 09:14 Urine Blood Trace (Negative) H 11/13/17 09:14 Urine Microscopic RBC 5-15 per hpf (0-3) H 11/13/17 09:14 Urine Microscopic WBC 15-30 per hpf (0-3) H 11/13/17 09:14 Ur Squamous Epith Cells Moderate per lpf (None-Few) H 11/13/17 09:14 Entero/Rhino (PCR) DETECTED (Not Detect) A 11/13/17 17:30 - Microbiology Findings Microbiology Findings: Microbiology, Last 48 Hours 11/13/17 18:45 Sputum Culture - Preliminary Sputum - Clinical Findings Intake & Output: Intake & Output 11/14/17 11/14/17 11/14/17 07:59 15:59 23:59 Intake Total 138 / 138 62 / 62 730 / 730 Output Total 425 / 425 1025 / 1025 Balance -287 / -287 -963 / -963 730 / 730 - Attending Attestation I examined this patient and my medical decision-making was reviewed with the Resident Physician. I agree with the documented findings, disposition and treatment plan as described except to the extent set forth below. Patient seen and examined at bedside Labs, radiology personally reviewed Case discussed on Multidisciplinary Rounds [employer]ATOR: Encephalopathy resolved. Restart home dose of anxiolytic and SSRI PULM: AECOPD with acute on chronic hypoxic/hypercapnic respiratory failure Extubated. Cont IV steroids and BD's. BiPAP at night. Smoking cessation counseling given. Cards: Hypotension resolved. Troponin elevation (mild) likely demand ischemia ECHO w/o WMA's restart BB . Start Diuresis GI: ADAT REnal: UOP monitored ID: [id number] x 24 hours pending resp culutre. RIP + for Enter/Rhino virus. HEME: DVT prophylaxis Given. MSK/SKIN: Routine [employer] RE[employer]ER protocol to prevent ulcers ENDO: GLucose monitored CODE: Full. Dispo Can likely transfer to MED/Tele in AM.
[2017-11-14] MEDS ORDERED: Metoprolol XL (24 HR) Succ 50 MG TAB.ER.24H PO SCH (09:00)
[2017-11-14] MEDS ORDERED: Levofloxacin 750 MG/150 ML 750 MG/150 ML BAG IVPB SCH (09:00)
[2017-11-14] MEDS ORDERED: Pantoprazole 40 MG VIAL IVP SCH (09:00)
[2017-11-14] MEDS ORDERED: cefTRIAXone 2,000 MG in Water for inj. (sterile) 20 ML 20 ML IVP ONE (10:55)
[2017-11-14] MEDS ORDERED: Perflutren Lipid Microsphere 1.3 ML in 0.9 % Sodium Chloride 8.7 ML IVP ONE (11:33)
[2017-11-14] MEDS ORDERED: Perflutren Lipid Microsphere 2 ML VIAL ONE (11:39)
[2017-11-14] MEDS: ALPRAZolam 0.5 MG TABLET PO PRN (13:16)
[2017-11-14] MEDS ORDERED: Furosemide 20 MG/2 ML VIAL IVP ONE (15:19)
[2017-11-14] MEDS: Norepinephrine 4 MG in D5% in Water 250 ML IVC SCH (16:46)
[2017-11-14] MEDS: Acetaminophen 325 MG TABLET PO PRN (17:31)
[2017-11-14] MEDS: Azithromycin 500 MG in D5% in Water 250 ML IVPB SCH (17:31)
--- NOTE | 2017-11-14 17:31 | Electrocardiograph Report ---
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
[2017-11-15] MEDS: ALPRAZolam 0.5 MG TABLET PO PRN (00:15)
[2017-11-15] MEDS: methylPREDNISolone 125 MG/2 ML VIAL IVP SCH ×2 (00:15→06:23)
[2017-11-15] MEDS: Acetaminophen 325 MG TABLET PO PRN (00:21)
[2017-11-15] MEDS: Ipratropium/Albuterol Neb 3 ML IH SCH ×6 (03:53→23:03)
[2017-11-15 04:16] LABS: Basophils % 0.1 %; Hematocrit 37.8 % (35.3-44.9); Hemoglobin 12.4 g/dL (11.5-15.4); Immature Granulocytes % 0.5 % (0-4); Lymphocytes # 0.6 K/mcL (0.6-4.6); Lymphocytes % 2.9 %; Mean Corpuscular HGB Conc 32.8 g/dL (31.6-35.5); Mean Corpuscular Hemoglobin 31.4 pg (28.0-33.3); Mean Corpuscular Volume 95.7 fL (83.0-100.0); Mean Platelet Volume 9.7 fL (9.4-12.4); Monocytes # 0.4 K/mcL (0.0-1.3); Neutrophils # 18.3 K/mcL (1.6-8.9); Platelet Count 257 K/mcL (140-400); Red Blood Count 3.95 M/mcL (3.82-4.97); Red Cell Distribution Width 13.4 % (11.5-14.5); Segmented Neutrophils % 94.5 %
[2017-11-15 04:36] LABS: BUN/Creatinine Ratio 25 (6-26); Blood Urea Nitrogen 18 mg/dL (8-23); Calcium 9.2 mg/dL (8.6-10.3); Carbon Dioxide 33 mEq/L (23-29); Chloride 93 mEq/L (98-107); Glucose 136 mg/dL (70-105); Osmolality,Calculated 278 (280-300); Potassium 3.5 mEq/L (3.5-5.1); Sodium 132 mEq/L (136-145); eGFR For Non-African Americans > 60 (> 60)
[2017-11-15] MEDS: Budesonide/Formoterol 160/4.5 1 PUFF INH IH SCH ×2 (07:23→20:26)
--- NOTE | 2017-11-15 07:50 | Pulmonology Progress Note ---
<Wolfgang Tsai - Last Filed: 11/15/17 10:57> Date of Encounter: 11/15/17 Assessment and Plan (1) Acute metabolic encephalopathy Current Visit: Yes Status: Acute 11/14/2017: - currently resolved- patient is A&O*3, no acute distress - causes- likely hypercanic respiratory failure- patient most recent ABG showed compensatory respiratory acidosis pH: 7.37, pCO2: 65, HCO3- :37 , which is probably her baseline status (with her Hx of COPD) - she has been extubated and is currently on high flow oxygen (10L) - with her Hx of Xanax use for her anxiety, we will start her on low dose of Xanax to prevent any BDZ withdrawal symptoms. 11/13/2017 - patient presented altered when she was brought to the ED (GCS : 7) - not responding to pain or voice and is moaning at the bedside in the ED - likely secondary to her acute hypercapnic respiratory failure, it could also be overdosing theophylline and Xanax which patient takes as her home medication. - patient was intubated in the ED, PEEP : 5 FiO2: 40%. Currently she seems to be moving all her 4 extremities. She can be weaned off precedex. PRN Fentanyl if she shows any signs of discomfort (like gagging) secondary to intubation - she will undergo spontaneous breathing trial tomorrow (2) Acute on chronic respiratory failure with hypercapnia Current Visit: No Status: Acute 11/14/2017 - secondary to her Hx of Chronic COPD- on 2L oxygen at home. patient has a Hx of extensive smoking and is a current smoker(60 pack years) - Her most recent ABG showed Compensated Respiratry Acidosis : pH: 7.37, PCO2: 65, PO2: 61 HCO3: 37 - Patient has been weaned off of the Ventilator this morning and currently on high flow oxygen (10L) - she contineus to get duonebs q4h, IV steroids and Abx . - 11/13/2017 - secondary to her Hx of Chronic COPD- on 2L oxygen at home. patient has a Hx of extensive smoking (60 pack years) - ABG in the ED showed pH 7.15, pCO2: 112, HCO3: 39. - patient currently intubated and sedated. She's on pressor (Levofed) . Goal MAP > 65. - duonebs q4h, IV steroids and Abx . Trending lactate q6h. - will repeat ABG in AM (3) Shock Current Visit: Yes Status: Acute 11/14/2017: - her shock has resolved. She has been extubated. Cause is likely distributive- secondary to potential sinus infection , her infective PCR was positive for entero/rhinovirus. She is s/p 4L of 0.9% NaCL. Patient had a Hx of Pneumonia in the past and was intubated- although during this admission, her chest CT did not show any consolidation and showed no classical symptom of PNA ( Fever, chills or SOB) - we are covering her for atypical PNA with Rocephin (2000mg) and Azithromycin (500mg BID). - Physical exam shows \mild wheezing than yesterday. No rales, JVD or S3 sounds 11/13/2017 -patient was hypotensive on admission, she is s/p 4L of 0.9% NACl, WBC: 16.4, RR :23, Currently afebrile -etiology for shock currently unsure. Could be a septic shock secondary to her sinus infection which she has had or few days, patient had a negative UA on admission, she doesn't appear to have pneumonia-no egophony, no tactile fremitus , afebrile. Patient presented with hypotensive state in the ED - she could probably be showing signs of adrenal insufficiency secondary to her steroid use in the past for COPD. Patient's currently on 60 mg methylprednisone. -sputum and blood cultures are pending, her MRSA swab was negative and Resp. Infection Panel was positive entero/rhino virus -Currently on Rocephin (2000mg ) and Azithromycin (500mg). -Trend lactate and troponins q6h. - Current BP 100/60. if she continues to be hypotensive , we can discontinue methylprednisolone and put her on hydrocortisone (4) HTN (hypertension) Current Visit: No Status: Chronic -patient has a Hx of HTN, she's on lisinopril and metoprolol at home - She was hypotensive on admission was found to be is septic shock. Her most recent BP is 132/67. - We will restart her home medications Qualifiers: Hypertension type: essential hypertension Qualified Code(s): I10 - Essential (primary) hypertension (5) Anxiety Current Visit: No Status: Chronic -patient has a Hx of anxiety- takes Xanax at home - We are starting her back on Xanax to prevent BDZ withdrawal symptoms ( agitation, irritability) (6) DVT prophylaxis Current Visit: No Status: Acute - sub 40 mg Lovenox Subjective Principal diagnosis: altered mental status Interval history: 11/15: no acute events overnight. Patient endorses no SOB, no chest pain or palpitation. She is normotensive todyay and back to her full dietary regimen. 11/14: no acute events overnight. Patient was weaned off the ventilator ths morning on C-PAP and currently on high flow oxygen (10L). Her BP has normalized and her leukocytosis has resolved. She's on day 2 of her Abx (Azithroycin 500mg and Rocephin qd ) . Her nasal swab was negative for MRSA and the Resp. Infectious Panel was positive for Enter/Rhino Virus which goes along with the patient's complain of sinus infection for the past few days. Patient is A&O*3, in no acute distress. She is getting weaned off her Precedex . Objective PUL Vital signs: Last Vital Signs Temp 98.1 F 11/15/17 07:44 Pulse 89 11/15/17 06:00 Resp 16 11/15/17 06:00 BP 116/62 11/15/17 06:00 Pulse Ox 93 11/15/17 06:00 Results - Laboratory Findings CBC and BMP: 11/15/17 04:08 11/15/17 04:08 ABG ABG pH 7.37 pH Units (7.32-7.45) 11/14/17 05:22 ABG pCO2 65 mmHg (35-45) H 11/14/17 05:22 ABG pO2 61 mmHg (85-104) L 11/14/17 05:22 ABG O2 Saturation 89 % (95-98) L 11/14/17 05:22 PT/INR, D-dimer PT 10.6 Seconds (9.4-12.1) 11/13/17 09:14 Abnormal lab findings: Abnormal lab results WBC 19.4 K/mcL (4.3-11.1) H D 11/15/17 04:08 Neutrophils # 18.3 K/mcL (1.6-8.9) H 11/15/17 04:08 APTT 39.4 Seconds (26.0-36.0) H 11/13/17 09:14 ABG pCO2 65 mmHg (35-45) H 11/14/17 05:22 ABG pO2 61 mmHg (85-104) L 11/14/17 05:22 ABG HCO3 37 mEq/L (21-27) H 11/14/17 05:22 ABG Total CO2 39 mEq/L (20-26) H 11/14/17 05:22 ABG O2 Saturation 89 % (95-98) L 11/14/17 05:22 ABG Base Excess 9 mEq/L (-2 to 3) H 11/14/17 05:22 Sodium 132 mEq/L (136-145) L 11/15/17 04:08 Chloride 93 mEq/L (98-107) L 11/15/17 04:08 Carbon Dioxide 33 mEq/L (23-29) H 11/15/17 04:08 Glucose 136 mg/dL (70-105) H 11/15/17 04:08 POC Glucose 159 mg/dL (70-99) H 11/14/17 11:23 Calculated Osmolality 278 (280-300) L 11/15/17 04:08 Alkaline Phosphatase 141 Units/L (34-104) H 11/13/17 09:14 Troponin I 0.11 ng/mL (< 0.04) H* 11/14/17 03:30 Beta-Hydroxybutyric Acd 0.31 mmol/L (0.02-0.27) H 11/13/17 09:14 TSH 0.315 mcIU/mL (0.340-5.600) L 11/14/17 03:30 Urine Clarity Cloudy (Clear) A 11/13/17 09:14 Ur Specific [place] 1.027 (1.010-1.025) H 11/13/17 09:14 Urine Protein >=1000 mg/dL (Neg-Trace) H 11/13/17 09:14 Urine Glucose (UA) 250 mg/dL (Normal) H 11/13/17 09:14 Urine Blood Trace (Negative) H 11/13/17 09:14 Urine Microscopic RBC 5-15 per hpf (0-3) H 11/13/17 09:14 Urine Microscopic WBC 15-30 per hpf (0-3) H 11/13/17 09:14 Ur Squamous Epith Cells Moderate per lpf (None-Few) H 11/13/17 09:14 Entero/Rhino (PCR) DETECTED (Not Detect) A 11/13/17 17:30 - Microbiology Findings Microbiology Findings: Microbiology, Last 48 Hours 11/13/17 18:45 Sputum Culture - Preliminary Sputum - Clinical Findings Intake & Output: Intake & Output 11/14/17 11/14/17 11/15/17 15:59 23:59 07:59 Intake Total 62 / 62 1230 / 1230 200 / 200 Output Total 1025 / 1025 650 / 650 1100 / 1100 Balance -963 / -963 580 / 580 -900 / -900 Weight 94.3 kg Consult Discharge Plan - Plan Referrals: Dion Whitman MD [Primary Care Provider] - <Tanner Perera W - Last Filed: 11/15/17 14:16> Date of Encounter: 11/15/17 Time of Encounter: 07:00 Objective PUL Vital signs: Last Vital Signs Temp 98.1 F 11/15/17 07:44 Pulse 100 11/15/17 07:00 Resp 20 11/15/17 07:00 BP 146/85 11/15/17 07:00 Pulse Ox 92 11/15/17 07:00 General appearance: no acute distress Eyes: nonicteric ENT: oropharynx moist Neck: supple Auscultation: bilateral: wheezes Cardiovascular: regular rate and rhythm Gastrointestinal: normoactive bowel sounds, soft, non-tender Integumentary: normal Extremities: no cyanosis, no edema, no clubbing Musculoskeletal: no deformities normal mental status, non-focal exam Results - Laboratory Findings CBC and BMP: 11/15/17 04:08 11/15/17 04:08 ABG ABG pH 7.37 pH Units (7.32-7.45) 11/14/17 05:22 ABG pCO2 65 mmHg (35-45) H 11/14/17 05:22 ABG pO2 61 mmHg (85-104) L 11/14/17 05:22 ABG O2 Saturation 89 % (95-98) L 11/14/17 05:22 PT/INR, D-dimer PT 10.6 Seconds (9.4-12.1) 11/13/17 09:14 Abnormal lab findings: Abnormal lab results WBC 19.4 K/mcL (4.3-11.1) H D 11/15/17 04:08 Neutrophils # 18.3 K/mcL (1.6-8.9) H 11/15/17 04:08 APTT 39.4 Seconds (26.0-36.0) H 11/13/17 09:14 ABG pCO2 65 mmHg (35-45) H 11/14/17 05:22 ABG pO2 61 mmHg (85-104) L 11/14/17 05:22 ABG HCO3 37 mEq/L (21-27) H 11/14/17 05:22 ABG Total CO2 39 mEq/L (20-26) H 11/14/17 05:22 ABG O2 Saturation 89 % (95-98) L 11/14/17 05:22 ABG Base Excess 9 mEq/L (-2 to 3) H 11/14/17 05:22 Sodium 132 mEq/L (136-145) L 11/15/17 04:08 Chloride 93 mEq/L (98-107) L 11/15/17 04:08 Carbon Dioxide 33 mEq/L (23-29) H 11/15/17 04:08 Glucose 136 mg/dL (70-105) H 11/15/17 04:08 POC Glucose 159 mg/dL (70-99) H 11/14/17 11:23 Calculated Osmolality 278 (280-300) L 11/15/17 04:08 Alkaline Phosphatase 141 Units/L (34-104) H 11/13/17 09:14 Troponin I 0.11 ng/mL (< 0.04) H* 11/14/17 03:30 Beta-Hydroxybutyric Acd 0.31 mmol/L (0.02-0.27) H 11/13/17 09:14 TSH 0.315 mcIU/mL (0.340-5.600) L 11/14/17 03:30 Urine Clarity Cloudy (Clear) A 11/13/17 09:14 Ur Specific [place] 1.027 (1.010-1.025) H 11/13/17 09:14 Urine Protein >=1000 mg/dL (Neg-Trace) H 11/13/17 09:14 Urine Glucose (UA) 250 mg/dL (Normal) H 11/13/17 09:14 Urine Blood Trace (Negative) H 11/13/17 09:14 Urine Microscopic RBC 5-15 per hpf (0-3) H 11/13/17 09:14 Urine Microscopic WBC 15-30 per hpf (0-3) H 11/13/17 09:14 Ur Squamous Epith Cells Moderate per lpf (None-Few) H 11/13/17 09:14 Entero/Rhino (PCR) DETECTED (Not Detect) A 11/13/17 17:30 - Microbiology Findings Microbiology Findings: Microbiology, Last 48 Hours 11/13/17 18:45 Sputum Culture - Preliminary Sputum - Clinical Findings Intake & Output: Intake & Output 11/14/17 11/15/17 11/15/17 23:59 07:59 15:59 Intake Total 1230 / 1230 200 / 200 Output Total 650 / 650 1100 / 1100 Balance 580 / 580 -900 / -900 Weight 94.3 kg - Attending Attestation I examined this patient and my medical decision-making was reviewed with the Resident Physician. I agree with the documented findings, disposition and treatment plan as described except to the extent set forth below. We independently had [id number] contact with the patient Patient seen and examined at bedside Labs, radiology, chart personally reviewed. Management was reviewed during multidisciplinary critical care rounds. 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 ID: Plan de-escalate antibiotics based upon sputum culture today white count increased overnight which I suspect is related to steroid effect she remains afebrile and otherwise clinically doing very well Heme/Onc: DVT prophylaxis given Endo: Glucose Monitored Integ/MSK: Skin Care per routine ICU Nursing Protocol to prevent ulcers. Lines: All lines examined without evidence of infection : Dispo: Table for transfer to [facility] telemetry for ongoing care CODE: Full
[2017-11-15] MEDS: Furosemide 20 MG/2 ML VIAL IVP SCH (08:04)
[2017-11-15] MEDS: *HR* Enoxaparin 40 MG/0.4 ML SYRINGE SQ SCH (08:06)
[2017-11-15] MEDS ORDERED: Metoprolol XL (24 HR) Succ 50 MG TAB.ER.24H PO SCH (09:00)
[2017-11-15] MEDS ORDERED: Naloxone 0.4 MG/ML INJ IVP PRN (11:00)
[2017-11-15] MEDS ORDERED: Albuterol 2.5 MG/3 ML NEBULIZER IH PRN (11:00)
[2017-11-15] MEDS: Azithromycin 250 MG TABLET PO SCH (11:19)
--- NOTE | 2017-11-15 13:58 | Electrocardiograph Report ---
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
[2017-11-15] MEDS: MethylPREDNISolone 40 MG/ML VIAL IVP SCH ×2 (17:06→23:56)
[2017-11-15] MEDS: ALPRAZolam 0.25 MG TABLET PO PRN (23:56)
[2017-11-16] MEDS: Ipratropium/Albuterol Neb 3 ML IH SCH ×5 (04:28→19:52)
[2017-11-16 05:18] LABS: Basophils % 0.1 %; Hematocrit 38.7 % (35.3-44.9); Immature Granulocytes % 0.7 % (0-4); Lymphocytes # 0.5 K/mcL (0.6-4.6); Lymphocytes % 3.3 %; Mean Corpuscular Hemoglobin 30.5 pg (28.0-33.3); Mean Corpuscular Volume 98.2 fL (83.0-100.0); Mean Platelet Volume 10.3 fL (9.4-12.4); Monocytes # 0.3 K/mcL (0.0-1.3); Monocytes % 1.7 %; Neutrophils # 14.5 K/mcL (1.6-8.9); Platelet Count 284 K/mcL (140-400); Red Blood Count 3.94 M/mcL (3.82-4.97); Red Cell Distribution Width 13.5 % (11.5-14.5); Segmented Neutrophils % 94.2 %
[2017-11-16] MEDS: *HR* Enoxaparin 40 MG/0.4 ML SYRINGE SQ SCH (06:33)
[2017-11-16] MEDS: Budesonide/Formoterol 160/4.5 1 PUFF INH IH SCH ×2 (07:35→19:52)
[2017-11-16 08:02] LABS: BUN/Creatinine Ratio 34 (6-26); Blood Urea Nitrogen 26 mg/dL (8-23); Calcium 9.1 mg/dL (8.6-10.3); Carbon Dioxide 35 mEq/L (23-29); Chloride 94 mEq/L (98-107); Glucose 134 mg/dL (70-105); Magnesium 1.9 mg/dL (1.6-2.6); Osmolality,Calculated 289 (280-300); Potassium 3.8 mEq/L (3.5-5.1); Sodium 136 mEq/L (136-145); eGFR For Non-African Americans > 60 (> 60)
[2017-11-16] MEDS: Azithromycin 250 MG TABLET PO SCH (08:33)
[2017-11-16] MEDS: Metoprolol XL (24 HR) Succ 50 MG TAB.ER.24H PO SCH (08:34)
[2017-11-16] MEDS: MethylPREDNISolone 40 MG/ML VIAL IVP SCH ×3 (08:34→23:42)
[2017-11-16] MEDS: Furosemide 20 MG/2 ML VIAL IVP SCH (08:34)
[2017-11-16] MEDS: Acetaminophen 325 MG TABLET PO PRN ×3 (09:15→23:42)
[2017-11-16] MEDS: ALPRAZolam 0.25 MG TABLET PO PRN (22:11)
--- NOTE | 2017-11-16 23:28 | Event Note ---
Date of Encounter: 11/16/17 Time of Encounter: 23:18 Alerted by pts. nurse Crenshaw of pts. sepsis risk d/t HR of 99 and WBC of 15.4. Stat lactic acid ordered. Pt. receiving PO azithromycin and WBC down from 19.4. Will await lactic acid results. Pts. VS: 97.9 temp, 96 heart rate, 14 respirations, BP 164/104, SPO2 93% on 4 L. IVP hydralazine ordered 10 mg Q6HR PRN w/parameters. Pt. to be monitored closely overnight for signs of increasing infection. Monitor f/u labs.
[2017-11-17] MEDS: Ipratropium/Albuterol Neb 3 ML IH SCH ×7 (04:21→23:35)
[2017-11-17] MEDS: *HR* Enoxaparin 40 MG/0.4 ML SYRINGE SQ SCH (06:54)
[2017-11-17] MEDS: Budesonide/Formoterol 160/4.5 1 PUFF INH IH SCH ×2 (07:32→20:10)
[2017-11-17] MEDS: Metoprolol XL (24 HR) Succ 50 MG TAB.ER.24H PO SCH (08:29)
[2017-11-17] MEDS: MethylPREDNISolone 40 MG/ML VIAL IVP SCH ×3 (08:29→23:33)
[2017-11-17] MEDS: Azithromycin 250 MG TABLET PO SCH (08:29)
[2017-11-17] MEDS: Furosemide 20 MG/2 ML VIAL IVP SCH (08:29)
[2017-11-17] MEDS: ALPRAZolam 0.25 MG TABLET PO PRN (23:32)
[2017-11-18] MEDS: Ipratropium/Albuterol Neb 3 ML IH SCH ×6 (04:02→23:19)
[2017-11-18] MEDS: *HR* Enoxaparin 40 MG/0.4 ML SYRINGE SQ SCH (06:17)
[2017-11-18] MEDS: Budesonide/Formoterol 160/4.5 1 PUFF INH IH SCH ×2 (07:25→19:36)
[2017-11-18] MEDS: Metoprolol XL (24 HR) Succ 50 MG TAB.ER.24H PO SCH (08:08)
[2017-11-18] MEDS: Furosemide 20 MG/2 ML VIAL IVP SCH (08:08)
[2017-11-18] MEDS: Azithromycin 250 MG TABLET PO SCH (08:08)
[2017-11-18] MEDS: MethylPREDNISolone 40 MG/ML VIAL IVP SCH ×2 (08:08→15:04)
[2017-11-18] MEDS: Acetaminophen 325 MG TABLET PO PRN (15:03)
[2017-11-18] MEDS: ALPRAZolam 0.25 MG TABLET PO PRN (16:09)
[2017-11-19] MEDS: MethylPREDNISolone 40 MG/ML VIAL IVP SCH ×4 (00:15→23:37)
[2017-11-19] MEDS: Ipratropium/Albuterol Neb 3 ML IH SCH ×6 (03:56→23:43)
[2017-11-19] MEDS: *HR* Enoxaparin 40 MG/0.4 ML SYRINGE SQ SCH (05:35)
[2017-11-19] MEDS: Budesonide/Formoterol 160/4.5 1 PUFF INH IH SCH ×2 (07:21→19:59)
[2017-11-19] MEDS: Furosemide 20 MG/2 ML VIAL IVP SCH (08:10)
[2017-11-19] MEDS: Metoprolol XL (24 HR) Succ 50 MG TAB.ER.24H PO SCH (08:10)
[2017-11-19 20:57] LABS: Basophils % 0.3 %; Hematocrit 43.1 % (35.3-44.9); Immature Granulocytes % 2.2 % (0-4); Lymphocytes # 0.8 K/mcL (0.6-4.6); Lymphocytes % 6.5 %; Mean Corpuscular HGB Conc 31.8 g/dL (31.6-35.5); Mean Corpuscular Hemoglobin 31.1 pg (28.0-33.3); Mean Corpuscular Volume 97.7 fL (83.0-100.0); Monocytes # 0.7 K/mcL (0.0-1.3); Monocytes % 5.9 %; Neutrophils # 10.3 K/mcL (1.6-8.9); Platelet Count 334 K/mcL (140-400); Red Blood Count 4.41 M/mcL (3.82-4.97); Segmented Neutrophils % 85.1 %
[2017-11-19 20:58] LABS: Hemoglobin 13.7 g/dL (11.5-15.4)
[2017-11-19 21:26] LABS: Alanine Aminotransferase 16 Units/L (7-52); Albumin 3.7 g/dL (3.5-5.7); Albumin/Globulin Ratio 1.5 (1.1-2.2); Alkaline Phosphatase 89 Units/L (34-104); Aspartate Amino Transferase 10 Units/L (13-39); BUN/Creatinine Ratio 31 (6-26); Bilirubin,Total 0.3 mg/dL (0.3-1.0); Blood Urea Nitrogen 27 mg/dL (8-23); Calcium 9.2 mg/dL (8.6-10.3); Carbon Dioxide 44 mEq/L (23-29); Chloride 86 mEq/L (98-107); Globulin 2.4 g/dL (2.4-3.5); Glucose 159 mg/dL (70-105); Osmolality,Calculated 284 (280-300); Potassium 4.8 mEq/L (3.5-5.1); Sodium 133 mEq/L (136-145); Total Protein 6.1 g/dL (6.4-8.9); eGFR For Non-African Americans > 60 (> 60)
--- NOTE | 2017-11-19 22:09 | Event Note ---
Date of Encounter: 11/19/17 Time of Encounter: 20:24 Alerted by pts. nurse INA Martinez that the pt. was a sepsis risk d/t HR of 103 bpm and WBC of 15.4. Nurse noted BP was 162/101 so ordered hydralazine was given. Went to pts. orders and found that the pt. had no recent labs since 11/16 , so stat CBC, [employer], and lactic acid were ordered. Pt. was previously in ICU and had been on IVPB azithromycin according to my previous note from 11/16 from floor call placed by nurse regarding sepsis criteria being met. Lactic acid came back at 1.6. Carbon dioxide was concerning at 44. Patient placed on ordered BiPAP. WBC of 12.1 today showed improvement from IVPB azithromycin, so order placed to restart IVPB azithromycin 500 mg daily. Follow-up labs ordered daily at 04:00. Pt. to be monitored closely overnight.
[2017-11-19] MEDS: Azithromycin 500 MG in D5% in Water 250 ML IVPB SCH (22:17)
[2017-11-20] MEDS: Ipratropium/Albuterol Neb 3 ML IH SCH ×5 (03:20→20:07)
[2017-11-20 04:52] LABS: Alanine Aminotransferase 14 Units/L (7-52); Albumin 3.3 g/dL (3.5-5.7); Albumin/Globulin Ratio 1.5 (1.1-2.2); Alkaline Phosphatase 74 Units/L (34-104); Aspartate Amino Transferase 10 Units/L (13-39); BUN/Creatinine Ratio 32 (6-26); Bilirubin,Total 0.3 mg/dL (0.3-1.0); Blood Urea Nitrogen 23 mg/dL (8-23); Calcium 8.9 mg/dL (8.6-10.3); Carbon Dioxide 41 mEq/L (23-29); Chloride 89 mEq/L (98-107); Globulin 2.2 g/dL (2.4-3.5); Glucose 136 mg/dL (70-105); Osmolality,Calculated 284 (280-300); Potassium 4.8 mEq/L (3.5-5.1); Sodium 134 mEq/L (136-145); Total Protein 5.5 g/dL (6.4-8.9); eGFR For Non-African Americans > 60 (> 60)
[2017-11-20] MEDS: *HR* Enoxaparin 40 MG/0.4 ML SYRINGE SQ SCH (06:04)
[2017-11-20 06:57] LABS: Basophils % 0.3 %; Hematocrit 38.7 % (35.3-44.9); Hemoglobin 12.3 g/dL (11.5-15.4); Immature Granulocytes % 2.1 % (0-4); Lymphocytes # 0.9 K/mcL (0.6-4.6); Lymphocytes % 8.7 %; Mean Corpuscular HGB Conc 31.8 g/dL (31.6-35.5); Mean Corpuscular Hemoglobin 30.9 pg (28.0-33.3); Mean Corpuscular Volume 97.2 fL (83.0-100.0); Mean Platelet Volume 9.5 fL (9.4-12.4); Monocytes # 0.5 K/mcL (0.0-1.3); Monocytes % 4.6 %; Platelet Count 296 K/mcL (140-400); Red Blood Count 3.98 M/mcL (3.82-4.97); Red Cell Distribution Width 13.1 % (11.5-14.5); Segmented Neutrophils % 84.3 %
[2017-11-20] MEDS: Budesonide/Formoterol 160/4.5 1 PUFF INH IH SCH ×2 (07:58→20:08)
--- NOTE | 2017-11-20 08:09 | Internal Med Progress Note ---
Hospitalist Progress Note - Encounter Date of Encounter: 11/18/17 Time of Encounter: 19:00 - Exam Vitals: Temp Pulse Resp BP Pulse Ox 97.5 F L 88 20 158/104 98 11/20/17 07:00 11/20/17 07:00 11/20/17 08:01 11/20/17 07:00 11/20/17 08:01 Exam: xxx - Assessment and Plan (1) COPD with exacerbation Current Visit: No Status: Acute (2) Acute on chronic respiratory failure with hypoxia and hypercapnia Current Visit: Yes Status: Acute (3) HTN (hypertension) Current Visit: No Status: Chronic (4) Debility Current Visit: Yes Status: Acute DVT Prophylaxis: Lovenox - Summary of Assessment and Plan Summary of Assessment and Plan: SUBJECTIVE: The patient feels better. She continues to use supplemental oxygen at 5 L/min nasal cannula. She was using a 3 L/min at home. She continues to use BiPAP at nighttime and off and on the daytime. Denies chest pain. Denies abdominal pain, nausea and vomiting. She has normal urination. OBJECTIVE: Skin: Free of rash and discoloration. ENMT: Oral/pharyngeal mucosa is normal in appearance. Eyes: Sclera is white. There is no discharge from eyes. Respiratory: Normal breath sounds; no crackles or wheezes. CV: Heart is regular; no gallop or murmur. GI: Abdomen is soft and not tender. There is no palpable mass or visceromegaly. Neuro: There is no focal deficits. ASSESSMENT AND PLAN: COPD exacerbation/acute on chronic hypoxic and hypercapnic respiratory failure. Improved quite a bit. Her encephalopathy is gone. We will continue IV Zithromax, IV Solu-Medrol, Symbicort and nebulizer treatments. Will continue BiPAP treatments and supplemental oxygen. See notes from pulmonary service. Hypertension. Under control. We will continue Lopressor. Debility. This is secondary to above-mentioned. Should get better with treatment of the above. DISPOSITION: xxx - Time Spent with Patient Total time spent is greater than 50% in coordination of care (as documented) at patient's floor/unit and/or counseling patient: 25 - 35 minutes Internal Medicine: Result - Labs CBC & Chem 7: 11/20/17 06:32 11/20/17 03:46 Labs: Short CBC 11/19/17 11/20/17 Range/Units 20:45 06:32 WBC 12.1 H 10.6 (4.3-11.1) K/mcL Hgb 13.7 D 12.3 (11.5-15.4) g/dL Hct 43.1 38.7 (35.3-44.9) % Plt Count 334 296 (140-400) K/mcL Neutrophils # 10.3 H 9.0 H (1.6-8.9) K/mcL BMP 11/19/17 11/20/17 20:45 03:46 Sodium 133 L 134 L Potassium 4.8 4.8 Chloride 86 L 89 L Carbon Dioxide 44 H* 41 H* BUN 27 H 23 Creatinine 0.88 0.72 Glucose 159 H 136 H Calcium 9.2 8.9 Liver Function 11/19/17 11/20/17 Range/Units 20:45 03:46 Total Bilirubin 0.3 0.3 (0.3-1.0) mg/dL AST 10 L 10 L (13-39) Units/L ALT 16 14 (7-52) Units/L Alkaline Phosphatase 89 74 (34-104) Units/L Albumin 3.7 3.3 L (3.5-5.7) g/dL - ABG Interpretation ABG results: ABG ABG pH 7.37 pH Units (7.32-7.45) 11/14/17 05:22 ABG pCO2 65 mmHg (35-45) H 11/14/17 05:22 ABG pO2 61 mmHg (85-104) L 11/14/17 05:22 ABG O2 Saturation 89 % (95-98) L 11/14/17 05:22 PT/INR, D-dimer PT 10.6 Seconds (9.4-12.1) 11/13/17 09:14 Consult Discharge Plan - Plan Referrals: Dion Whitman MD [Primary Care Provider] - 11/27/17 2:00 pm (3) HTN (hypertension) Qualifiers: Hypertension type: essential hypertension Qualified Code(s): I10 - Essential (primary) hypertension
--- NOTE | 2017-11-20 08:41 | Internal Med Progress Note ---
Hospitalist Progress Note - Encounter Date of Encounter: 11/19/17 Time of Encounter: 19:00 - Exam Vitals: Temp Pulse Resp BP Pulse Ox 97.5 F L 88 20 158/104 98 11/20/17 07:00 11/20/17 07:00 11/20/17 08:01 11/20/17 07:00 11/20/17 08:01 Exam: xxx - Assessment and Plan (1) COPD with exacerbation Current Visit: No Status: Acute (2) Acute on chronic respiratory failure with hypoxia and hypercapnia Current Visit: Yes Status: Acute (3) HTN (hypertension) Current Visit: No Status: Chronic (4) Debility Current Visit: Yes Status: Acute DVT Prophylaxis: Lovenox - Summary of Assessment and Plan Summary of Assessment and Plan: SUBJECTIVE: The patient feels better. She continues to use supplemental oxygen at 4.5 L/ min nasal cannula. She was using a 3 L/min at home. She continues to use BiPAP at nighttime and off and on the daytime. Denies chest pain. Denies abdominal pain, nausea and vomiting. She has normal urination. OBJECTIVE: Skin: Free of rash and discoloration. ENMT: Oral/pharyngeal mucosa is normal in appearance. Eyes: Sclera is white. There is no discharge from eyes. Respiratory: Normal breath sounds; no crackles or wheezes. CV: Heart is regular; no gallop or murmur. GI: Abdomen is soft and not tender. There is no palpable mass or visceromegaly. Neuro: There is no focal deficits. ASSESSMENT AND PLAN: COPD exacerbation/acute on chronic hypoxic and hypercapnic respiratory failure. Improved quite a bit. Her encephalopathy is gone. We will continue IV Zithromax, IV Solu-Medrol, Symbicort and nebulizer treatments. Will continue BiPAP treatments and supplemental oxygen. See notes from pulmonary service. Hypertension. Under control. We will substitute Lopressor with amlodipine. Debility. She will get the better with treatment of above mentioned. DISPOSITION: This patient definitely shows delayed response to the treatments. It is due to the fact that she has had long-standing COPD/respiratory failure. - Time Spent with Patient Total time spent is greater than 50% in coordination of care (as documented) at patient's floor/unit and/or counseling patient: 25 - 35 minutes Plan of Care Discussed with: patient Internal Medicine: Result - Labs CBC & Chem 7: 11/20/17 06:32 11/20/17 03:46 Labs: Short CBC 11/19/17 11/20/17 Range/Units 20:45 06:32 WBC 12.1 H 10.6 (4.3-11.1) K/mcL Hgb 13.7 D 12.3 (11.5-15.4) g/dL Hct 43.1 38.7 (35.3-44.9) % Plt Count 334 296 (140-400) K/mcL Neutrophils # 10.3 H 9.0 H (1.6-8.9) K/mcL BMP 11/19/17 11/20/17 20:45 03:46 Sodium 133 L 134 L Potassium 4.8 4.8 Chloride 86 L 89 L Carbon Dioxide 44 H* 41 H* BUN 27 H 23 Creatinine 0.88 0.72 Glucose 159 H 136 H Calcium 9.2 8.9 Liver Function 11/19/17 11/20/17 Range/Units 20:45 03:46 Total Bilirubin 0.3 0.3 (0.3-1.0) mg/dL AST 10 L 10 L (13-39) Units/L ALT 16 14 (7-52) Units/L Alkaline Phosphatase 89 74 (34-104) Units/L Albumin 3.7 3.3 L (3.5-5.7) g/dL - ABG Interpretation ABG results: ABG ABG pH 7.37 pH Units (7.32-7.45) 11/14/17 05:22 ABG pCO2 65 mmHg (35-45) H 11/14/17 05:22 ABG pO2 61 mmHg (85-104) L 11/14/17 05:22 ABG O2 Saturation 89 % (95-98) L 11/14/17 05:22 PT/INR, D-dimer PT 10.6 Seconds (9.4-12.1) 11/13/17 09:14 Consult Discharge Plan - Plan Referrals: Dion Whitman MD [Primary Care Provider] - 11/27/17 2:00 pm (3) HTN (hypertension) Qualifiers: Hypertension type: essential hypertension Qualified Code(s): I10 - Essential (primary) hypertension
[2017-11-20] MEDS: Furosemide 20 MG/2 ML VIAL IVP SCH (09:39)
--- NOTE | 2017-11-20 09:39 | Internal Med Progress Note ---
<MarieJohnna post Vero - Last Filed: 11/20/17 15:15> Hospitalist Progress Note - Encounter Date of Encounter: 11/20/17 Time of Encounter: 09:35 - Subjective Interval History: Pt examined bedside this morning. She denies any angina, abdominal pain, nausea , vomiting, issues or wheezing. She does admit to a intermittent cough that is non-productive. She states that her shortness of breath is improving. She states that overnight her blood pressure and heart rate spiked up, and that the nurse started some antibiotics but she isn't sure. She is wondering what she will need to do at home to keep her blood pressure down or if they are going to change her medications around. She also is asking for a incentive spirometer. Patient denies any complaints and is resting comfortably. - Exam Vitals: Temp Pulse Resp BP Pulse Ox 97.5 F L 88 20 158/104 98 11/20/17 07:00 11/20/17 07:00 11/20/17 08:01 11/20/17 07:00 11/20/17 08:01 Exam: General: AAOx3, NAD Heart: distant heart sounds, no murmurs, RRR Lungs: Decreased breath sounds, no wheeze/rales Abd: non-tender, soft - Assessment and Plan (1) COPD exacerbation Current Visit: Yes Status: Acute Assessment and Plan: - clinically patient has improved - encephalopathy resolved - azithromycin restarted at 500mg IV daily - continue IV solu-medrol, symbicort and duonebs breathing treatment - patient on biPAP treatments and at night - nasal cannula O2 at 6lpm during day - pulmonary following (2) Acute on chronic respiratory failure with hypercapnia Current Visit: No Status: Acute Assessment and Plan: - clinically improved - patient on biPAP treatments and at night - nasal cannula O2 at 6lpm during day - Continue IV azithromycin, solu-medrol and breathing treatments and bronchodilators - pulmonology following (3) HTN (hypertension) Current Visit: Yes Status: Chronic Assessment and Plan: - patient had a BP spike of 162/101 overnight that was treated with hydralazine - currently taking metoprolol for HTN control - will switch to amlodipine due to COPD and lack of control of HTN (4) Debility Current Visit: Yes Status: Acute Assessment and Plan: - patient improving since being treated for COPD exacerbation and ARF - will increase with symptomatic improvement - Summary of Assessment and Plan Summary of Assessment and Plan: Pt has a history of long-standing COPD/respiratory failure and is suffering acute exacerbation. She is improving with supplemental oxygen and BiPAP as well as IV Zithromax, IV Solu-Medrol, Symbicort and nebulizer treatments. We will continue O2 and medical therapy. Hypertension medication will be changed to amlodipine from lopressor. Patient response to treatment is slow due to long standing nature of disease state, will continue to monitor and follow with pulmonary. - Time Spent with Patient Total time spent is greater than 50% in coordination of care (as documented) at patient's floor/unit and/or counseling patient: Internal Medicine: Result - Labs CBC & Chem 7: 11/20/17 06:32 11/20/17 03:46 Labs: Short CBC 11/19/17 11/20/17 Range/Units 20:45 06:32 WBC 12.1 H 10.6 (4.3-11.1) K/mcL Hgb 13.7 D 12.3 (11.5-15.4) g/dL Hct 43.1 38.7 (35.3-44.9) % Plt Count 334 296 (140-400) K/mcL Neutrophils # 10.3 H 9.0 H (1.6-8.9) K/mcL BMP 11/19/17 11/20/17 20:45 03:46 Sodium 133 L 134 L Potassium 4.8 4.8 Chloride 86 L 89 L Carbon Dioxide 44 H* 41 H* BUN 27 H 23 Creatinine 0.88 0.72 Glucose 159 H 136 H Calcium 9.2 8.9 Liver Function 11/19/17 11/20/17 Range/Units 20:45 03:46 Total Bilirubin 0.3 0.3 (0.3-1.0) mg/dL AST 10 L 10 L (13-39) Units/L ALT 16 14 (7-52) Units/L Alkaline Phosphatase 89 74 (34-104) Units/L Albumin 3.7 3.3 L (3.5-5.7) g/dL - ABG Interpretation ABG results: ABG ABG pH 7.37 pH Units (7.32-7.45) 11/14/17 05:22 ABG pCO2 65 mmHg (35-45) H 11/14/17 05:22 ABG pO2 61 mmHg (85-104) L 11/14/17 05:22 ABG O2 Saturation 89 % (95-98) L 11/14/17 05:22 PT/INR, D-dimer PT 10.6 Seconds (9.4-12.1) 11/13/17 09:14 Consult Discharge Plan - Plan Referrals: Dion Whitman MD [Primary Care Provider] - 11/27/17 2:00 pm <Germain Guzman - Last Filed: 11/21/17 14:56> Hospitalist Progress Note - Encounter Date of Encounter: 11/20/17 - Exam Vitals: Temp Pulse Resp BP Pulse Ox 98.6 F 107 16 174/86 93 11/21/17 11:35 11/21/17 11:35 11/21/17 11:35 11/21/17 11:35 11/21/17 11:35 Exam: Skin: Free of rash/discoloration. - Assessment and Plan (1) COPD with exacerbation Current Visit: No Status: Acute (2) Acute on chronic respiratory failure with hypoxia and hypercapnia Current Visit: Yes Status: Acute (3) HTN (hypertension) Current Visit: Yes Status: Chronic (4) Debility Current Visit: Yes Status: Acute - Time Spent with Patient Total time spent is greater than 50% in coordination of care (as documented) at patient's floor/unit and/or counseling patient: Internal Medicine: Result - Labs CBC & Chem 7: 11/21/17 04:02 11/21/17 04:02 Labs: Short CBC 11/21/17 Range/Units 04:02 WBC 13.6 H (4.3-11.1) K/mcL Hgb 13.2 (11.5-15.4) g/dL Hct 40.8 (35.3-44.9) % Plt Count 363 (140-400) K/mcL Neutrophils # 11.9 H (1.6-8.9) K/mcL BMP 11/21/17 04:02 Sodium 132 L Potassium 4.4 Chloride 88 L Carbon Dioxide 38 H BUN 26 H Creatinine 0.70 Glucose 154 H Calcium 8.7 Liver Function 11/21/17 Range/Units 04:02 Total Bilirubin 0.3 (0.3-1.0) mg/dL AST 10 L (13-39) Units/L ALT 15 (7-52) Units/L Alkaline Phosphatase 82 (34-104) Units/L Albumin 3.6 (3.5-5.7) g/dL - ABG Interpretation ABG results: ABG ABG pH 7.37 pH Units (7.32-7.45) 11/14/17 05:22 ABG pCO2 65 mmHg (35-45) H 11/14/17 05:22 ABG pO2 61 mmHg (85-104) L 11/14/17 05:22 ABG O2 Saturation 89 % (95-98) L 11/14/17 05:22 PT/INR, D-dimer PT 10.6 Seconds (9.4-12.1) 11/13/17 09:14 - Attending Attestation I SAW/EXAMINED AND EVALUATED THE PATIENT WITH THE RESIDENT ON THE DAY OF VISIT. THE CASE WAS DISCUSSED WITH HIM/HER. I AGREE WITH THE FINDINGS/PLAN, DOCUMENTED IN THE RESIDENT'S NOTE. THE DOCUMENT WAS EDITED BY ME TO CORRECT ERRORS AND ADD MISSING DATA. <Johnna Marie L - Last Filed: 11/20/17 15:15> (3) HTN (hypertension) Qualifiers: Hypertension type: essential hypertension Qualified Code(s): I10 - Essential (primary) hypertension <Germain Guzman - Last Filed: 11/21/17 14:56> (3) HTN (hypertension) Qualifiers: Hypertension type: essential hypertension Qualified Code(s): I10 - Essential (primary) hypertension
[2017-11-20] MEDS: Metoprolol XL (24 HR) Succ 50 MG TAB.ER.24H PO SCH (09:40)
[2017-11-20] MEDS: MethylPREDNISolone 40 MG/ML VIAL IVP SCH ×2 (09:40→16:39)
[2017-11-20] MEDS: Acetaminophen 325 MG TABLET PO PRN (09:40)
[2017-11-20] MEDS: Azithromycin 500 MG in D5% in Water 250 ML IVPB SCH (18:00)
[2017-11-21] MEDS: Ipratropium/Albuterol Neb 3 ML IH SCH ×7 (00:06→23:21)
[2017-11-21] MEDS: MethylPREDNISolone 40 MG/ML VIAL IVP SCH ×3 (00:08→17:39)
[2017-11-21 04:33] LABS: Basophils % 0.2 %; Hematocrit 40.8 % (35.3-44.9); Hemoglobin 13.2 g/dL (11.5-15.4); Immature Granulocytes % 2.6 % (0-4); Lymphocytes # 0.9 K/mcL (0.6-4.6); Lymphocytes % 6.4 %; Mean Corpuscular HGB Conc 32.4 g/dL (31.6-35.5); Mean Corpuscular Hemoglobin 30.9 pg (28.0-33.3); Mean Corpuscular Volume 95.6 fL (83.0-100.0); Mean Platelet Volume 9.4 fL (9.4-12.4); Monocytes # 0.4 K/mcL (0.0-1.3); Monocytes % 2.7 %; Neutrophils # 11.9 K/mcL (1.6-8.9); Platelet Count 363 K/mcL (140-400); Red Blood Count 4.27 M/mcL (3.82-4.97); Red Cell Distribution Width 13.1 % (11.5-14.5); Segmented Neutrophils % 88.1 %
[2017-11-21 05:02] LABS: Alanine Aminotransferase 15 Units/L (7-52); Albumin 3.6 g/dL (3.5-5.7); Albumin/Globulin Ratio 1.5 (1.1-2.2); Alkaline Phosphatase 82 Units/L (34-104); Aspartate Amino Transferase 10 Units/L (13-39); BUN/Creatinine Ratio 37 (6-26); Bilirubin,Total 0.3 mg/dL (0.3-1.0); Blood Urea Nitrogen 26 mg/dL (8-23); Calcium 8.7 mg/dL (8.6-10.3); Carbon Dioxide 38 mEq/L (23-29); Chloride 88 mEq/L (98-107); Globulin 2.4 g/dL (2.4-3.5); Glucose 154 mg/dL (70-105); Osmolality,Calculated 282 (280-300); Potassium 4.4 mEq/L (3.5-5.1); Sodium 132 mEq/L (136-145); eGFR For Non-African Americans > 60 (> 60)
[2017-11-21] MEDS: *HR* Enoxaparin 40 MG/0.4 ML SYRINGE SQ SCH (06:02)
[2017-11-21] MEDS: Budesonide/Formoterol 160/4.5 1 PUFF INH IH SCH ×2 (07:31→19:34)
--- NOTE | 2017-11-21 09:27 | Internal Med Progress Note ---
<Johnna Marie Vero - Last Filed: 11/21/17 11:31> Hospitalist Progress Note - Encounter Date of Encounter: 11/21/17 Time of Encounter: 09:24 - Subjective Interval History: Pt examined bedside this morning. She denies any angina, abdominal pain, nausea , vomiting, issues or wheezing. She does admit to a intermittent cough that is non-productive, she says the cough is better since yesterday. She states that her shortness of breath is improving, but slowly. She says she has been using the incentive spirometer, which seems to help her bring up sputum. Patient does state that she was wheelchair bound prior to admission due to a knee and ankle injury sustained in May. She says that her knee pain is constant but that it only bothers her when she tries to walk around. Patient denies any complaints and is resting comfortably. - Exam Vitals: Temp Pulse Resp BP Pulse Ox 98.0 F 93 18 145/83 96 11/21/17 07:44 11/21/17 07:44 11/21/17 07:44 11/21/17 07:44 11/21/17 07:44 Exam: General: AAOx3, NAD Heart: distant heart sounds, no murmurs, RRR Lungs: Decreased breath sounds, no wheeze/rales/crackles Abd: non-tender, soft - Assessment and Plan (1) COPD exacerbation Current Visit: Yes Status: Acute Assessment and Plan: - patient improving clinically, slowly - encephalopathy resolved - azithromycin restarted at 500mg IV daily - continue symbicort and duonebs breathing treatment - patient on biPAP night - nasal cannula O2 at 4lpm during day - pulmonary following - taper IV solu-medrol (2) Acute on chronic respiratory failure with hypercapnia Current Visit: No Status: Acute Assessment and Plan: - clinically improved - patient on biPAP at night - nasal cannula O2 at 4lpm during day - Continue IV azithromycin and breathing treatments and bronchodilators - pulmonology following - decrease/taper solu-medrol (3) HTN (hypertension) Current Visit: Yes Status: Chronic Assessment and Plan: - patient had a BP spike of 162/101 overnight that was treated with hydralazine - currently taking metoprolol for HTN control, BP controlled adequately (4) Debility Current Visit: Yes Status: Acute Assessment and Plan: - patient improving since being treated for COPD exacerbation and ARF - will increase w/ symptomatic tx - knee and ankle injury in feb, wheelchair bound prior to admission, will need a knee surgery for displaced and broken knee cap - follow up with orthopedics outpatient upon d/c - Summary of Assessment and Plan Summary of Assessment and Plan: Pt has a history of long-standing COPD/respiratory failure and is suffering acute exacerbation. She is improving with supplemental oxygen and BiPAP as well as IV Zithromax, IV Solu-Medrol, Symbicort and nebulizer treatments. We will continue O2 and medical therapy, taper solu-medrol IV. Hypertension medication will be changed to amlodipine from lopressor. Patient response to treatment is slow due to long standing nature of disease state, will continue to monitor and follow with pulmonary. - Time Spent with Patient Total time spent is greater than 50% in coordination of care (as documented) at patient's floor/unit and/or counseling patient: Internal Medicine: Result - Labs CBC & Chem 7: 11/21/17 04:02 11/21/17 04:02 Labs: Short CBC 11/21/17 Range/Units 04:02 WBC 13.6 H (4.3-11.1) K/mcL Hgb 13.2 (11.5-15.4) g/dL Hct 40.8 (35.3-44.9) % Plt Count 363 (140-400) K/mcL Neutrophils # 11.9 H (1.6-8.9) K/mcL BMP 11/21/17 04:02 Sodium 132 L Potassium 4.4 Chloride 88 L Carbon Dioxide 38 H BUN 26 H Creatinine 0.70 Glucose 154 H Calcium 8.7 Liver Function 11/21/17 Range/Units 04:02 Total Bilirubin 0.3 (0.3-1.0) mg/dL AST 10 L (13-39) Units/L ALT 15 (7-52) Units/L Alkaline Phosphatase 82 (34-104) Units/L Albumin 3.6 (3.5-5.7) g/dL - ABG Interpretation ABG results: ABG ABG pH 7.37 pH Units (7.32-7.45) 11/14/17 05:22 ABG pCO2 65 mmHg (35-45) H 11/14/17 05:22 ABG pO2 61 mmHg (85-104) L 11/14/17 05:22 ABG O2 Saturation 89 % (95-98) L 11/14/17 05:22 PT/INR, D-dimer PT 10.6 Seconds (9.4-12.1) 11/13/17 09:14 Consult Discharge Plan - Plan Referrals: Dion Whitman MD [Primary Care Provider] - 11/27/17 2:00 pm <Germain Guzman - Last Filed: 11/21/17 14:59> Hospitalist Progress Note - Encounter Date of Encounter: 11/21/17 - Exam Vitals: Temp Pulse Resp BP Pulse Ox 98.6 F 107 16 174/86 93 11/21/17 11:35 11/21/17 11:35 11/21/17 11:35 11/21/17 11:35 11/21/17 11:35 Exam: Skin: Free of rash/discoloration. - Assessment and Plan (1) COPD with exacerbation Current Visit: No Status: Acute (2) Acute on chronic respiratory failure with hypoxia and hypercapnia Current Visit: Yes Status: Acute (3) HTN (hypertension) Current Visit: Yes Status: Chronic (4) Debility Current Visit: Yes Status: Acute - Time Spent with Patient Total time spent is greater than 50% in coordination of care (as documented) at patient's floor/unit and/or counseling patient: 25 - 35 minutes Plan of Care Discussed with: patient Internal Medicine: Result - Labs CBC & Chem 7: 11/21/17 04:02 11/21/17 04:02 Labs: Short CBC 11/21/17 Range/Units 04:02 WBC 13.6 H (4.3-11.1) K/mcL Hgb 13.2 (11.5-15.4) g/dL Hct 40.8 (35.3-44.9) % Plt Count 363 (140-400) K/mcL Neutrophils # 11.9 H (1.6-8.9) K/mcL BMP 11/21/17 04:02 Sodium 132 L Potassium 4.4 Chloride 88 L Carbon Dioxide 38 H BUN 26 H Creatinine 0.70 Glucose 154 H Calcium 8.7 Liver Function 11/21/17 Range/Units 04:02 Total Bilirubin 0.3 (0.3-1.0) mg/dL AST 10 L (13-39) Units/L ALT 15 (7-52) Units/L Alkaline Phosphatase 82 (34-104) Units/L Albumin 3.6 (3.5-5.7) g/dL - ABG Interpretation ABG results: ABG ABG pH 7.37 pH Units (7.32-7.45) 11/14/17 05:22 ABG pCO2 65 mmHg (35-45) H 11/14/17 05:22 ABG pO2 61 mmHg (85-104) L 11/14/17 05:22 ABG O2 Saturation 89 % (95-98) L 11/14/17 05:22 PT/INR, D-dimer PT 10.6 Seconds (9.4-12.1) 11/13/17 09:14 - Attending Attestation I SAW/EXAMINED AND EVALUATED THE PATIENT WITH THE RESIDENT ON THE DAY OF VISIT. THE CASE WAS DISCUSSED WITH HIM/HER. I AGREE WITH THE FINDINGS/PLAN, DOCUMENTED IN THE RESIDENT'S NOTE. THE DOCUMENT WAS EDITED BY ME TO CORRECT ERRORS AND ADD MISSING DATA. <Johnna Marie L - Last Filed: 11/21/17 11:31> (3) HTN (hypertension) Qualifiers: Hypertension type: essential hypertension Qualified Code(s): I10 - Essential (primary) hypertension <Germain Guzman M - Last Filed: 11/21/17 14:59> (3) HTN (hypertension) Qualifiers: Hypertension type: essential hypertension Qualified Code(s): I10 - Essential (primary) hypertension
[2017-11-21] MEDS: Furosemide 20 MG/2 ML VIAL IVP SCH (10:34)
[2017-11-21] MEDS: Metoprolol XL (24 HR) Succ 50 MG TAB.ER.24H PO SCH (10:34)
[2017-11-22] MEDS: Ipratropium/Albuterol Neb 3 ML IH SCH ×4 (04:15→16:16)
[2017-11-22 05:29] LABS: Basophils % 0.2 %; Hematocrit 36.9 % (35.3-44.9); Hemoglobin 11.7 g/dL (11.5-15.4); Immature Granulocytes % 2.6 % (0-4); Lymphocytes # 1.7 K/mcL (0.6-4.6); Lymphocytes % 13.2 %; Mean Corpuscular HGB Conc 31.7 g/dL (31.6-35.5); Mean Corpuscular Hemoglobin 30.2 pg (28.0-33.3); Mean Corpuscular Volume 95.3 fL (83.0-100.0); Mean Platelet Volume 9.4 fL (9.4-12.4); Monocytes # 0.9 K/mcL (0.0-1.3); Monocytes % 6.9 %; Neutrophils # 9.7 K/mcL (1.6-8.9); Platelet Count 330 K/mcL (140-400); Red Blood Count 3.87 M/mcL (3.82-4.97); Red Cell Distribution Width 13.2 % (11.5-14.5); Segmented Neutrophils % 77.1 %
[2017-11-22 05:47] LABS: Alanine Aminotransferase 16 Units/L (7-52); Albumin 3.2 g/dL (3.5-5.7); Albumin/Globulin Ratio 1.5 (1.1-2.2); Alkaline Phosphatase 74 Units/L (34-104); Aspartate Amino Transferase 10 Units/L (13-39); BUN/Creatinine Ratio 37 (6-26); Bilirubin,Total 0.3 mg/dL (0.3-1.0); Blood Urea Nitrogen 23 mg/dL (8-23); Calcium 8.6 mg/dL (8.6-10.3); Carbon Dioxide 38 mEq/L (23-29); Chloride 90 mEq/L (98-107); Globulin 2.2 g/dL (2.4-3.5); Glucose 107 mg/dL (70-105); Osmolality,Calculated 278 (280-300); Potassium 4.2 mEq/L (3.5-5.1); Sodium 132 mEq/L (136-145); Total Protein 5.4 g/dL (6.4-8.9); eGFR For Non-African Americans > 60 (> 60)
[2017-11-22] MEDS: *HR* Enoxaparin 40 MG/0.4 ML SYRINGE SQ SCH (05:58)
[2017-11-22] MEDS: MethylPREDNISolone 40 MG/ML VIAL IVP SCH (05:58)
[2017-11-22] MEDS: Budesonide/Formoterol 160/4.5 1 PUFF INH IH SCH (07:36)
[2017-11-22] MEDS: Metoprolol XL (24 HR) Succ 50 MG TAB.ER.24H PO SCH (09:31)
[2017-11-22] MEDS: Furosemide 20 MG/2 ML VIAL IVP SCH (09:31)
[2017-11-22] MEDS: Acetaminophen 325 MG TABLET PO PRN (09:45)
[2017-11-22 11:18] VITALS: BP 134/81
--- NOTE | 2017-11-22 13:04 | Discharge Summary ---
<Omero Daniel - Last Filed: 11/22/17 14:16> - NOTES TO OUTPATIENT PROVIDER Notes to Outpatient Provider: Patient was admitted with encephalopathy. Was intubated and required to be on vasopressors. Patient was extubated the following day. Treated for COPD exacerbation. Steriod taper. Date of Encounter: 11/22/17 Time of Encounter: 10:00 - Discharge Diagnosis (1) COPD with exacerbation Priority: Primary Status: Acute Assessment and Plan: - Known history of COPD - Patient improving clinically, slowly - Encephalopathy resolved - Continue symbicort and duonebs breathing treatment - Patient on biPAP night - Nasal cannula O2 at 4lpm during day - Pulmonary following Plan - Taper steroids begin Prednisone PO 60 mg (2) Acute on chronic respiratory failure with hypoxia and hypercapnia Priority: Primary Status: Acute Assessment and Plan: - clinically improved - patient on biPAP at night - nasal cannula O2 at 4lpm during day - Continue breathing treatments and bronchodilators - pulmonology following - steriod taper (3) HTN (hypertension) Priority: Secondary Status: Chronic Assessment and Plan: Known history of HTN on Metoprolol succinate at home controlled here with Hydralazine Qualifiers: Hypertension type: essential hypertension Qualified Code(s): I10 - Essential (primary) hypertension (4) Debility Priority: Secondary Status: Acute Assessment and Plan: - Deconditioning - knee and ankle injury in feb, wheelchair bound prior to admission, will need a knee surgery for displaced and broken knee cap - follow up with orthopedics outpatient upon d/c Hospital course: On 11/13/17 patient presented to the emergency department due to altered mental status, coma scale of 7. Workup in ED negative for infarct, intracranial mass, hemorrhage, or any evidence of PE in the chest. Troponins were within normal limits. Sinus infection prior. Local responsive. Initial ABG showed respiratory acidosis. Initial workup negative for signs of UTI or pneumonia. Patient was showing signs of shock. Etiology was unknown at the time. Patient was intubated and required to be on vasopressors. On 815 patient was extubated performed well on high flow oxygen 10 L. Started on Xanax to her history of its use to prevent withdrawal symptoms. On duo nebs, IV steroids, antibiotics. Clinically patient began to improve. Encephalopathy resolved. Patient has been treated for COPD exacerbation. Solu-Medrol taper is done patient was on IV azithromycin only. Patient had episodes of hypertension controlled with hydralazine. Sputum culture found no pathogens. Urinary antigens negative for Legionella S pneumonia. Blood cultures No Growth. Patient does state that she was wheelchair bound prior to admission due to a knee and ankle injury sustained in May. She says that her knee pain is constant but that it only bothers her when she tries to walk around. - Time Spent with Patient Total time spent providing and/or coordinating discharge services: - Discharge Medications Prescriptions: predniSONE [PredniSONE] See Taper PO DAILY #24 tablet Home Medications: Ipratropium/Albuterol Neb [Duoneb] 3 ml IH QID PRN 08/12/15 [History] Omeprazole [PriLOSEC] 20 mg PO DAILY 08/12/15 [History] Aspirin 81 mg PO DAILY tab.chew 04/06/16 [Rx] Atorvastatin [Lipitor] 40 mg PO HS 01/26/17 [History] Metoprolol Succinate 100 mg PO DAILY 01/26/17 [History] Escitalopram [Lexapro] 5 - 10 mg PO DAILY 04/25/17 [History] Theophylline Anhydrous [Theophylline] 200 mg PO DAILY 04/25/17 [History] Tiotropium [Spiriva] 18 mcg IH DAILY 04/25/17 [History] ALPRAZolam [Xanax 0.5 MG Tablet] 0.25 - 0.5 mg PO BID PRN 11/13/17 [History] Cholecalciferol (D-3) [Vitamin D] 2,000 unit PO DAILY 11/13/17 [History] Fluticasone/Salmeterol [Advair 500-50 Diskus] 1 puff IH BID 11/13/17 [History] Losartan/Hydrochlorothiazide [Hyzaar 100-25 Tablet] 1 tab PO DAILY 11/13/17 [ History] predniSONE [PredniSONE] See Taper PO DAILY #24 tablet 11/22/17 [Rx] Allergies/Adverse Reactions: 3 Allergy/AdvReac Type Severity Reaction Status Date / Time No Known Allergies Allergy Verified 11/13/17 11:09 Date of admission: 11/13/17 11:58 Primary care physician: Dion Whitman MD Consults: pulm/crit care Discharging clinician: Omero Daniel Anticipated date of discharge: 11/22/17 - Constitutional Vitals: Temp Pulse Resp BP Pulse Ox 98.1 F 105 20 134/81 93 11/22/17 11:10 11/22/17 11:10 11/22/17 11:32 11/22/17 11:10 11/22/17 11:32 General appearance: Present: A&O X 3, pleasant, no acute distress Exam: see below - Head Head exam: Present: atraumatic, normocephalic - Eye Eye exam: Present: PERRL, conjuntiva pink, sclera anicteric Pupils: Present: PERRL - Respiratory Respiratory exam: Present: CTAB. Absent: accessory muscle use, rales, rhonchi, wheezes - Cardiovascular Cardiovascular exam: Present: RRR, +S1, +S2. Absent: diastolic murmur, gallop, rubs, systolic murmur - Extremities Exam Extremities exam: Present: warm, radial pulses palpable and symmetrical. Absent : calf tenderness, cyanotic, pedal edema - Neurological Exam Neurological exam: Present: CN II-XII intact, oriented X3, no focal deficits. Absent: pronater drift, facial droop, speech deficit - Skin Skin exam: Present: dry, intact - Patient Status Disposition: Home, Self-Care Condition: Fair Functional capacity at discharge: independent ambulation Overall status at discharge: patient is back to baseline - Discharge Instructions Instructions: Prednisone (By mouth), Chronic Obstructive Pulmonary Disease (DC) , Sepsis (DC) Follow Up With: Dion Whitman MD [Primary Care Provider] - 11/27/17 2:00 pm - Diet and Activity Activity: increase activity as tolerated Diet: low salt diet <Man Coe T - Last Filed: 11/22/17 15:44> Date of Encounter: 11/22/17 - Discharge Diagnosis (1) HTN (hypertension) Status: Chronic Qualifiers: Hypertension type: essential hypertension Qualified Code(s): I10 - Essential (primary) hypertension (2) COPD with exacerbation Status: Acute (3) Acute on chronic respiratory failure with hypoxia and hypercapnia Status: Acute (4) Debility Status: Acute Hospital course: Ms. Cook is a 67 year old female - Time Spent with Patient Total time spent providing and/or coordinating discharge services: Greater than 30 minutes (35 mins spent on discharge preparation) Date of admission: 11/13/17 11:58 Primary care physician: Dion Whitman MD - Constitutional Vitals: Temp Pulse Resp BP Pulse Ox 98.1 F 105 20 134/81 93 11/22/17 11:10 11/22/17 11:10 11/22/17 11:32 11/22/17 11:10 11/22/17 11:32 - Attending Attestation I have personally seen and examined this patient on 11/22/17 and reviewed her chart and labs, including medications, I have discussed plan of care with the resident physician, whose documentation reflect our plan of care. With the additions/exceptions set forth below. 67 F, active tobacco user, with chronic hypoxic and hypercapneic respiratory failure on home oxygen who was admitted to the intensive care unit for acute metabolic encephalopathy secondary to acute on chronic hypoxic and hypercapnic respiratory failure, she also sustained shock which has resolved. She was seen and examined at the bedside, she reports chronic right knee surgery and being wheelchair bound, she is unable to ambulate without assistance. Chest examination is clear to auscultation bilaterally. No other significant systemic exam findings. She has completed antibiotic course inpatient. She is clinically stable to be discharged home on prednisone taper. Continue home MDIs. Follow-up with pulmonology and primary care physician. Rest of details as in the resident physicians documentation.
== END 2017-11-22 16:14 | disposition home or self-care (01) | DRG 871 ==
LOC: EMEROOARM 09:06 → SUATTDRO 11:58 → ICNU 11:58 → 2NENU 11-15 10:38
PROVIDERS: ADMIT Internal Medicine Hospice and Palliative Medicine; ATTEND Internal Medicine

== ENCOUNTER 2018-02-14 10:23 | Inpatient (IN) ==
[2018-02-14] MEDS ORDERED: methylPREDNISolone 125 MG/2 ML VIAL IVP ONE (10:30)
--- NOTE | 2018-02-14 10:32 | Emergency Department Note ---
Disposition Clinical Impression: COPD exacerbation Respiratory failure Qualifiers: Chronicity: acute on chronic Respiratory failure complication: hypoxia and hypercapnia Qualified Code(s): J96.21 - Acute and chronic respiratory failure with hypoxia Pulmonary edema Qualifiers: Chronicity: acute Qualified Code(s): J81.0 - Acute pulmonary edema Pneumonia Qualifiers: Pneumonia type: due to Haemophilus influenzae Laterality: unspecified laterality Lung location: unspecified part of lung Qualified Code(s): J14 - Pneumonia due to Hemophilus influenzae Disposition: Admitted As Inpatient Condition: Critical General Adult HPI - General Stated complaint: SOB Time Seen by Provider: 02/14/18 10:28 Nursing Notes Reviewed: Yes Vital Signs Reviewed: Yes - History of Present Illness HPI Narrative: 67-year-old female past medical history of COPD, CHF, having issues with requiring intubations in the past when she becomes short of breath, presents emergency department via EMS with concerns for shortness of breath the last day. Reports that she takes Lasix daily. Her daughter is not convinced that she has taken her Lasix over the last couple days. - Related Data Home Medications Medication Instructions Recorded Confirmed Ipratropium/Albuterol Neb [Duoneb] 3 ml IH QID PRN 08/12/15 06/24/17 Omeprazole [PriLOSEC] 20 mg PO DAILY 08/12/15 06/24/17 Atorvastatin [Lipitor] 40 mg PO HS 01/26/17 11/13/17 Metoprolol Succinate 100 mg PO DAILY 01/26/17 11/13/17 Escitalopram [Lexapro] 5 - 10 mg PO DAILY 04/25/17 11/13/17 Theophylline Anhydrous 200 mg PO DAILY 04/25/17 11/13/17 [Theophylline] Tiotropium [Spiriva] 18 mcg IH DAILY 04/25/17 11/13/17 ALPRAZolam [Xanax 0.5 MG Tablet] 0.25 - 0.5 mg PO BID PRN 11/13/17 11/13/17 Cholecalciferol (D-3) [Vitamin D] 2,000 unit PO DAILY 11/13/17 Fluticasone/Salmeterol [Advair 1 puff IH BID 11/13/17 11/13/17 500-50 Diskus] Losartan/Hydrochlorothiazide 1 tab PO DAILY 08/14/18 08/14/18 [Hyzaar 100-25 Tablet] Previous Rx's Medication Instructions Recorded Aspirin 81 mg PO DAILY tab.chew 04/06/16 predniSONE [PredniSONE] See Taper PO DAILY #24 tablet 11/22/17 Allergies Allergy/AdvReac Type Severity Reaction Status Date / Time No Known Allergies Allergy Verified 02/14/18 10:35 All systems ED: reviewed and negative except as stated. Review of Systems: As Per HPI Limitations: ROS unobtainable due to patients medical condition (Patient in respiratory distress distress, altered mental status.) Past Medical History - Past Medical History Medical history: Reports: COPD, hypertension Surgical history: Reports: hysterectomy, orthopedic, other Psychiatric history: Reports: anxiety TELEVISION PRODUCTION ASSISTANT history: Reports: no TELEVISION PRODUCTION ASSISTANT history - Social History Smoking Status: Current every day smoker Smokeless Tobacco Status: No Alcohol use: Reports: none Drug use: Reports: none Physical Exam - General Limitations: altered mental status General appearance: alert, in distress (Respiratory) - Head Head exam: normal inspection - Eye Eye exam: Absent: scleral icterus - ENT ENT exam: mucous membranes dry - Neck Neck exam: Present: trachea midline - Chest Chest inspection: Present: symmetric chest wall rise - Respiratory Respiratory exam: Present: respiratory distress, wheezes, accessory muscle use - Cardiovascular Cardiovascular exam: Present: regular rate, normal heart sounds - Abdominal Exam Abdominal exam: Present: soft, Non-Tender. Absent: distention, guarding, rebound, rigidity - Extremities Exam Extremities exam: Present: other (3+ pitting edema bilaterally) - Back Exam Back exam: Present: full ROM - Neurological Exam Neurological exam: Present: other (Patient appears somnolent, no focal neurologic deficits) - Skin Skin exam: Present: warm, dry Course Vital Signs Temperature 98.7 F 02/14/18 10:24 Pulse Rate 96 02/14/18 10:24 Respiratory Rate 25 02/14/18 10:24 Blood Pressure 185/113 02/14/18 10:24 O2 Sat by Pulse Oximetry 85 02/14/18 10:24 Temperature 98.4 F 02/14/18 15:00 Pulse Rate 75 02/14/18 15:13 Respiratory Rate 14 02/14/18 15:00 Blood Pressure 82/46 02/14/18 15:00 O2 Sat by Pulse Oximetry 99 02/14/18 15:00 Oxygen Delivery Oxygen Delivery Ventilator Procedures - Intubation Time out performed: Yes sedative: Ketamine Mg Given: 150 paralytic: Succinylcholine Mg Given: 100 Laryngoscope: Malachi ET Tube Size: 7.5 Tube Secured Depth (cm): 23 Tube Secured Location: lips Tube Placement Confirmation: visualized tube passing through cords, equal breath sounds bilaterally, no breath sounds over epigastrium, confirmation by capnom etry Patient Tolerated Procedure: well, no complications Intubation Complications: none Medical Decision Making - MDM Narrative Medical decision making narrative: 67-year-old female presents emergency Department concern for shortness of breath with a past medical history of CHF, COPD, and requiring multiple intubations in the past for having exacerbations. Initial exam, patient appeared altered. She had wheezes and rales throughout on physical exam. Her pedal edema was 3+ with lower extremities very tight. Initial EKG did not reveal any ischemic ST changes. Troponin was negative. Patient not complaining of chest pain. Do not suspect acute coronary syndrome. Initial chest x-ray per radiology reveals per radiology 1. Mild central congestion without overt pulmonary edema. 2. Bibasilar airspace opacities, favored to be atelectasis. Do not suspect pulmonary embolism at this time as patient not having chest pain, has known history of CHF and COPD, with reports that this is the exact same thing as her CHF exacerbation as well as COPD exacerbation. Due to patient's extreme respiratory distress. Patient was immediately placed on BiPAP. She was also given sublingual nitroglycerin and started on a nitroglycerin drip at 240 mcg/m. Patient initially responded well to BiPAP and nitroglycerin therapy. Due to wheezes on lung exam and concern that she had cough and sputum production, we also administered duo nebs and albuterol as well as steroids. Clinically, there is concern for pneumonia. We also gave Levaquin. However, throughout her stay, she became more somnolent and altered. At that point, decision was made to intubate the patient. We used ketamine and succinylcholine. Endotracheal tube was placed at 23 cm at her lips. Adequate positioning her repeat chest x-ray. Patient admitted to the energy economist, Dr. Bacon agreed to accept the patient for admission to the intensive care unit. Family was informed of the critical nature of this patient. Chest X-Ray 02/14/18 12:22 IMPRESSION: ET tube in satisfactory position. Otherwise stable exam with mild bibasilar atelectasis. D/ / Lino Quezada MD / Lino Quezada MD Interpreting Provider: Lino Quezada MD - Lab Data Result diagrams: 02/14/18 10:30 02/14/18 10:30 Lab Results 02/14/18 02/14/18 02/14/18 Range/Units 10:30 10:30 10:30 WBC 12.0 H (4.3-11.1) K/mcL RBC 4.62 (3.82-4.97) M/mcL Hgb 14.1 (11.5-15.4) g/dL Hct 43.2 (35.3-44.9) % MCV 93.5 (83.0-100.0) fL MCH 30.5 (28.0-33.3) pg MCHC 32.6 (31.6-35.5) g/dL RDW 13.6 (11.5-14.5) % Plt Count 327 (140-400) K/mcL MPV 8.6 L (9.4-12.4) fL Immature Gran % 0.4 (0-4) % Seg Neutrophils % 85.6 % Lymphocytes % 7.4 % Monocytes % 5.7 % Eosinophils % 0.7 % Basophils % 0.2 % Neutrophils # 10.3 H (1.6-8.9) K/mcL Lymphocytes # 0.9 (0.6-4.6) K/mcL Monocytes # 0.7 (0.0-1.3) K/mcL Eosinophils # 0.1 (0.0-0.6) K/mcL Basophils # 0.0 (0.0-0.2) K/mcL VBG pH (7.32-7.42) pH Units VBG pCO2 (41-51) mmHg VBG pO2 (25-50) mmHg VBG HCO3 (21-27) mEq/L Carboxyhemoglobin 8.1 H (0-5) % Sodium 126 L (136-145) mEq/L Potassium 4.2 (3.5-5.1) mEq/L Chloride 81 L (98-107) mEq/L Carbon Dioxide 43 H* (23-29) mEq/L BUN 17 (8-23) mg/dL Creatinine 0.56 L (0.60-1.20) mg/dL Est GFR ( Amer) > 60 (> 60) Est GFR (Non-Af Amer) > 60 (> 60) BUN/Creatinine Ratio 30 H (6-26) Glucose 137 H (70-105) mg/dL Calculated Osmolality 266 L (280-300) Lactic Acid (0.5-2.2) mmol/L Calcium 9.3 (8.6-10.3) mg/dL Troponin I < 0.03 (< 0.04) ng/mL Urine Color (Yellow) Urine Clarity (Clear) Urine pH (5.0-8.0) pH Units Ur Specific Iaeger (1.010-1.025) Urine Protein (Neg-Trace) mg/dL Urine Glucose (UA) (Normal) mg/dL Urine Ketones (Negative) mg/dL Urine Blood (Negative) Urine Nitrite (Negative) Urine Bilirubin (Negative) Urine Urobilinogen (Normal) mg/dL Ur Leukocyte Esterase (Negative) Urine Microscopic RBC (0-3) per hpf Urine Microscopic WBC (0-3) per hpf Ur Squamous Epith Cells (None-Few) per lpf Urine Bacteria (None-Few) per hpf Hyaline Casts (None-Few) per lpf Granular Casts (None Seen) per lpf Urine Mucus (Few) Urine Yeast (None Seen) per hpf Ur Culture Indicated? (NO) Person Notif of Crit 02/14/18 02/14/18 02/14/18 Range/Units 11:23 11:39 11:44 WBC (4.3-11.1) K/mcL RBC (3.82-4.97) M/mcL Hgb (11.5-15.4) g/dL Hct (35.3-44.9) % MCV (83.0-100.0) fL MCH (28.0-33.3) pg MCHC (31.6-35.5) g/dL RDW (11.5-14.5) % Plt Count (140-400) K/mcL MPV (9.4-12.4) fL Immature Gran % (0-4) % Seg Neutrophils % % Lymphocytes % % Monocytes % % Eosinophils % % Basophils % % Neutrophils # (1.6-8.9) K/mcL Lymphocytes # (0.6-4.6) K/mcL Monocytes # (0.0-1.3) K/mcL Eosinophils # (0.0-0.6) K/mcL Basophils # (0.0-0.2) K/mcL VBG pH 7.27 L (7.32-7.42) pH Units VBG pCO2 91 H* (41-51) mmHg VBG pO2 207 H (25-50) mmHg VBG HCO3 42 H (21-27) mEq/L Carboxyhemoglobin (0-5) % Sodium (136-145) mEq/L Potassium (3.5-5.1) mEq/L Chloride (98-107) mEq/L Carbon Dioxide (23-29) mEq/L BUN (8-23) mg/dL Creatinine (0.60-1.20) mg/dL Est GFR ( Amer) (> 60) Est GFR (Non-Af Amer) (> 60) BUN/Creatinine Ratio (6-26) Glucose (70-105) mg/dL Calculated Osmolality (280-300) Lactic Acid 0.4 L (0.5-2.2) mmol/L Calcium (8.6-10.3) mg/dL Troponin I (< 0.04) ng/mL Urine Color Yellow (Yellow) Urine Clarity Clear (Clear) Urine pH 6.0 (5.0-8.0) pH Units Ur Specific Iaeger 1.020 (1.010-1.025) Urine Protein 100 H (Neg-Trace) mg/dL Urine Glucose (UA) Normal (Normal) mg/dL Urine Ketones Negative (Negative) mg/dL Urine Blood Small H (Negative) Urine Nitrite Negative (Negative) Urine Bilirubin Small H (Negative) Urine Urobilinogen Normal (Normal) mg/dL Ur Leukocyte Esterase Negative (Negative) Urine Microscopic RBC 15-30 H (0-3) per hpf Urine Microscopic WBC 5-15 H (0-3) per hpf Ur Squamous Epith Cells Many H (None-Few) per lpf Urine Bacteria Moderate H (None-Few) per hpf Hyaline Casts Few (None-Few) per lpf Granular Casts Few H (None Seen) per lpf Urine Mucus Many H (Few) Urine Yeast Few H (None Seen) per hpf Ur Culture Indicated? NO (NO) Person Notif of Chidi CATHERINE REED - EKG Data EKG #1 EKG attestation: Yes I reviewed and interpreted this EKG. EKG results narrative: 1100 Heart rate 90 bpm, [place] interval is normal, QRS duration 83 ms, QTC 470 ms, normal axis. Sinus rhythm ventricular rate 90 bpm. No evidence of any ischemic ST changes.
[2018-02-14 10:47] LABS: Basophils % 0.2 %; Eosinophils # 0.1 K/mcL (0.0-0.6); Eosinophils % 0.7 %; Hematocrit 43.2 % (35.3-44.9); Hemoglobin 14.1 g/dL (11.5-15.4); Immature Granulocytes % 0.4 % (0-4); Lymphocytes # 0.9 K/mcL (0.6-4.6); Lymphocytes % 7.4 %; Mean Corpuscular HGB Conc 32.6 g/dL (31.6-35.5); Mean Corpuscular Hemoglobin 30.5 pg (28.0-33.3); Mean Corpuscular Volume 93.5 fL (83.0-100.0); Mean Platelet Volume 8.6 fL (9.4-12.4); Monocytes # 0.7 K/mcL (0.0-1.3); Monocytes % 5.7 %; Neutrophils # 10.3 K/mcL (1.6-8.9); Platelet Count 327 K/mcL (140-400); Red Blood Count 4.62 M/mcL (3.82-4.97); Red Cell Distribution Width 13.6 % (11.5-14.5); Segmented Neutrophils % 85.6 %
[2018-02-14] MEDS ORDERED: Nitroglycerin 0.4 MG TAB.SUBL SL STA (10:48)
[2018-02-14] MEDS ORDERED: Ipratropium/Albuterol Neb 3 ML IH STA (10:50)
[2018-02-14] MEDS ORDERED: Ipratropium/Albuterol Neb 3 ML IH SCH (11:00)
[2018-02-14] MEDS: Nitroglycerin 25 MG/250 ML INFUS..BTL IVC SCH ×4 (11:01→17:34)
[2018-02-14 11:05] LABS: Troponin I < 0.03 ng/mL (< 0.04)
[2018-02-14 11:13] LABS: BUN/Creatinine Ratio 30 (6-26); Blood Urea Nitrogen 17 mg/dL (8-23); Calcium 9.3 mg/dL (8.6-10.3); Carbon Dioxide 43 mEq/L (23-29); Chloride 81 mEq/L (98-107); Glucose 137 mg/dL (70-105); Osmolality,Calculated 266 (280-300); Potassium 4.2 mEq/L (3.5-5.1); Sodium 126 mEq/L (136-145); eGFR For Non-African Americans > 60 (> 60)
[2018-02-14] MEDS ORDERED: Albuterol 2.5 MG/3 ML NEBULIZER IH ONE (11:23)
[2018-02-14] MEDS ORDERED: Levofloxacin 750 MG/150 ML 750 MG/150 ML BAG IVPB ONE (11:24)
[2018-02-14 11:31] LABS: VBG HCO3 42 mEq/L (21-27); VBG PCO2 91 mmHg (41-51); VBG PH 7.27 pH Units (7.32-7.42); VBG PO2 207 mmHg (25-50)
--- NOTE | 2018-02-14 11:33 | Emergency Department Note ---
Disposition Clinical Impression: COPD exacerbation Respiratory failure Qualifiers: Chronicity: acute on chronic Respiratory failure complication: hypoxia and hypercapnia Qualified Code(s): J96.21 - Acute and chronic respiratory failure with hypoxia; J96.22 - Acute and chronic respiratory failure with hypercapnia Pulmonary edema Qualifiers: Chronicity: acute Qualified Code(s): J81.0 - Acute pulmonary edema Disposition: Admitted As Inpatient Referrals: Dion Whitman MD [Primary Care Provider] - General Adult HPI - General Chief complaint: ED Shortness of Breath/Dyspnea Stated complaint: SOB Time Seen by Provider: 02/14/18 10:28 Source: patient, EMS Limitations: no limitations - History of Present Illness Pain Scale: 0 - Related Data Home Medications Medication Instructions Recorded Confirmed Ipratropium/Albuterol Neb [Duoneb] 3 ml IH QID PRN 08/12/15 06/24/17 Omeprazole [PriLOSEC] 20 mg PO DAILY 08/12/15 06/24/17 Atorvastatin [Lipitor] 40 mg PO HS 01/26/17 11/13/17 Metoprolol Succinate 100 mg PO DAILY 01/26/17 11/13/17 Escitalopram [Lexapro] 5 - 10 mg PO DAILY 04/25/17 11/13/17 Theophylline Anhydrous 200 mg PO DAILY 04/25/17 11/13/17 [Theophylline] Tiotropium [Spiriva] 18 mcg IH DAILY 04/25/17 11/13/17 ALPRAZolam [Xanax 0.5 MG Tablet] 0.25 - 0.5 mg PO BID PRN 11/13/17 11/13/17 Cholecalciferol (D-3) [Vitamin D] 2,000 unit PO DAILY 11/13/17 Fluticasone/Salmeterol [Advair 1 puff IH BID 11/13/17 11/13/17 500-50 Diskus] Losartan/Hydrochlorothiazide 1 tab PO DAILY 11/13/17 11/13/17 [Hyzaar 100-25 Tablet] Previous Rx's Medication Instructions Recorded Aspirin 81 mg PO DAILY tab.chew 04/06/16 predniSONE [PredniSONE] See Taper PO DAILY #24 tablet 11/22/17 Allergies Allergy/AdvReac Type Severity Reaction Status Date / Time No Known Allergies Allergy Verified 02/14/18 10:35 Past Medical History - Past Medical History Medical history: Reports: COPD, hypertension Surgical history: Reports: hysterectomy, orthopedic, other Psychiatric history: Reports: anxiety POLICE MATRON history: Reports: no POLICE MATRON history - Social History Smoking Status: Current every day smoker Smokeless Tobacco Status: No Alcohol use: Reports: none Drug use: Reports: none Physical Exam - General Limitations: no limitations General appearance: in no apparent distress, lethargic Course Vital Signs Temperature 98.7 F 02/14/18 10:24 Pulse Rate 96 02/14/18 10:24 Respiratory Rate 25 02/14/18 10:24 Blood Pressure 185/113 02/14/18 10:24 O2 Sat by Pulse Oximetry 85 02/14/18 10:24 Temperature 98.7 F 02/14/18 10:24 Pulse Rate 107 02/14/18 11:25 Respiratory Rate 26 02/14/18 11:25 Blood Pressure 134/87 02/14/18 11:25 O2 Sat by Pulse Oximetry 93 02/14/18 11:25 Oxygen Delivery Oxygen Delivery Bipap Medical Decision Making - Lab Data Result diagrams: 02/14/18 10:30 02/14/18 10:30 Lab Results 02/14/18 02/14/18 02/14/18 Range/Units 10:30 10:30 10:30 WBC 12.0 H (4.3-11.1) K/mcL RBC 4.62 (3.82-4.97) M/mcL Hgb 14.1 (11.5-15.4) g/dL Hct 43.2 (35.3-44.9) % MCV 93.5 (83.0-100.0) fL MCH 30.5 (28.0-33.3) pg MCHC 32.6 (31.6-35.5) g/dL RDW 13.6 (11.5-14.5) % Plt Count 327 (140-400) K/mcL MPV 8.6 L (9.4-12.4) fL Immature Gran % 0.4 (0-4) % Seg Neutrophils % 85.6 % Lymphocytes % 7.4 % Monocytes % 5.7 % Eosinophils % 0.7 % Basophils % 0.2 % Neutrophils # 10.3 H (1.6-8.9) K/mcL Lymphocytes # 0.9 (0.6-4.6) K/mcL Monocytes # 0.7 (0.0-1.3) K/mcL Eosinophils # 0.1 (0.0-0.6) K/mcL Basophils # 0.0 (0.0-0.2) K/mcL Carboxyhemoglobin 8.1 H (0-5) % Sodium 126 L (136-145) mEq/L Potassium 4.2 (3.5-5.1) mEq/L Chloride 81 L (98-107) mEq/L Carbon Dioxide 43 H* (23-29) mEq/L BUN 17 (8-23) mg/dL Creatinine 0.56 L (0.60-1.20) mg/dL Est GFR ( Amer) > 60 (> 60) Est GFR (Non-Af Amer) > 60 (> 60) BUN/Creatinine Ratio 30 H (6-26) Glucose 137 H (70-105) mg/dL Calculated Osmolality 266 L (280-300) Calcium 9.3 (8.6-10.3) mg/dL Troponin I < 0.03 (< 0.04) ng/mL Attestation Statement - Attestation Attestation: I examined this patient and my medical decision-making was reviewed with the Resident Physician. I agree with the documented findings, disposition and treatment plan as described except to the extent set forth below. Patient presents in respiratory failure, likely multifactorial with contribution from pulmonary edema as well as COPD exacerbation. Aggressive treatment was initiated with sublingual followed by intravenous nitrates, BiPAP initiated at 12/6, titrated up to 16/12. Significant improvement with this therapy, however, still quite short of breath. Still wheezing. Getting nebulizer therapy to treat her COPD exacerbation as well. Per family at bedside, requires frequent intubations. I will be to avoid the ventilator. Again, has made significant progress with aggressive therapy, but still quite short of breath. Will require ICU admission. Critical care time: I was directly primarily involved the care of this patient for 35 minutes excluding procedures.
[2018-02-14 11:52] LABS: Bilirubin,Urine Small (Negative); Blood,Urine Small (Negative); Clarity,Urine Clear (Clear); Color,Urine Yellow (Yellow); Glucose,Urine (UA) Normal (Normal); Ketones,Urine Negative (Negative); Leukocyte Esterase,Urine Negative (Negative); Nitrite,Urine Negative (Negative); Protein,Urine 100 mg/dL (Neg-Trace); Urobilinogen,Urine Normal (Normal)
[2018-02-14 12:01] LABS: Squamous Epithelial Cell,Urine Many per lpf (None-Few)
[2018-02-14 12:02] LABS: RBC,Urine 15-30 per hpf (0-3)
[2018-02-14 12:03] LABS: Bacteria,Urine Moderate per hpf (None-Few); Yeast,Urine Few per hpf (None Seen)
[2018-02-14 12:04] LABS: Granular Casts,Urine Few per lpf (None Seen); Hyaline Casts,Urine Few per lpf (None-Few); Mucus,Urine Many (Few)
[2018-02-14] MEDS ORDERED: KETAMINE HCL 50 MG/ML SYRINGE IV ONE (12:06)
[2018-02-14] MEDS ORDERED: Propofol 500 MG/50 ML INFUS..BTL ONE (12:33)
[2018-02-14 13:20] LABS: ABG Base Excess 13 mEq/L (-2 to 3); ABG HCO3 43 mEq/L (21-27); ABG Oxygen Saturation 100 % (95-98); ABG PCO2 86 mmHg (35-45); ABG PH 7.31 pH Units (7.32-7.45); ABG PO2 316 mmHg (85-104); ABG TCO2 46 mEq/L (20-26); Blood Gas Modality VC; Blood Gas PEEP 8 cm H2O; Blood Gas Respiration Rate 12; Blood Gas VT 550 cc
[2018-02-14] MEDS ORDERED: *HR* Succinylcholine 200 MG/10 ML VIAL IVP ONE (13:20)
[2018-02-14] MEDS ORDERED: Ketamine *HR* 500 MG/10 ML MDV IVP ONE (13:20)
--- NOTE | 2018-02-14 13:28 | Pulmonology History & Physical ---
<Shannen Rosario M - Last Filed: 02/14/18 16:26> Date of Encounter: 02/14/18 History of Present Illness HPI: Ms. Cook is a 67 year old female Medications and Allergies Ipratropium/Albuterol Neb [Duoneb] 3 ml IH QID PRN 08/12/15 [History] Omeprazole [PriLOSEC] 20 mg PO DAILY 08/12/15 [History] Aspirin 81 mg PO DAILY tab.chew 04/06/16 [Rx] Atorvastatin [Lipitor] 40 mg PO HS 01/26/17 [History] Metoprolol Succinate 100 mg PO DAILY 01/26/17 [History] Escitalopram [Lexapro] 5 - 10 mg PO DAILY 04/25/17 [History] Theophylline Anhydrous [Theophylline] 200 mg PO DAILY 04/25/17 [History] Tiotropium [Spiriva] 18 mcg IH DAILY 04/25/17 [History] ALPRAZolam [Xanax 0.5 MG Tablet] 0.25 - 0.5 mg PO BID PRN 11/13/17 [History] Cholecalciferol (D-3) [Vitamin D] 2,000 unit PO DAILY 11/13/17 [History] Fluticasone/Salmeterol [Advair 500-50 Diskus] 1 puff IH BID 11/13/17 [History] Losartan/Hydrochlorothiazide [Hyzaar 100-25 Tablet] 1 tab PO DAILY 11/13/17 [History] predniSONE [PredniSONE] See Taper PO DAILY #24 tablet 11/22/17 [Rx] Allergy/AdvReac Type Severity Reaction Status Date / Time No Known Allergies Allergy Verified 02/14/18 10:35 All Systems: The remainder of the systems were reviewed and are negative Physical Examination Vital Signs: Vital Signs, Last 4 Hours Temp Pulse Resp BP Pulse Ox 02/14/18 16:00 73 14 81/57 99 02/14/18 15:59 14 81/57 100 02/14/18 15:13 75 02/14/18 15:00 98.4 F 79 14 82/46 99 02/14/18 14:00 97.6 F 107 18 119/61 97 02/14/18 13:35 119 14 104/83 98 02/14/18 13:04 100 14 73/30 96 02/14/18 12:45 117 14 104/30 97 02/14/18 12:30 116 14 118/79 96 Results - Laboratory Findings CBC and BMP: 02/14/18 10:30 02/14/18 10:30 ABG ABG pH 7.31 pH Units (7.32-7.45) L 02/14/18 13:14 ABG pCO2 86 mmHg (35-45) H* 02/14/18 13:14 ABG pO2 316 mmHg (85-104) H 02/14/18 13:14 ABG O2 Saturation 100 % (95-98) H 02/14/18 13:14 Abnormal lab findings: Abnormal lab results WBC 12.0 K/mcL (4.3-11.1) H 02/14/18 10:30 MPV 8.6 fL (9.4-12.4) L 02/14/18 10:30 Neutrophils # 10.3 K/mcL (1.6-8.9) H 02/14/18 10:30 ABG pH 7.31 pH Units (7.32-7.45) L 02/14/18 13:14 ABG pCO2 86 mmHg (35-45) H* 02/14/18 13:14 ABG pO2 316 mmHg (85-104) H 02/14/18 13:14 ABG HCO3 43 mEq/L (21-27) H 02/14/18 13:14 ABG Total CO2 46 mEq/L (20-26) H 02/14/18 13:14 ABG O2 Saturation 100 % (95-98) H 02/14/18 13:14 ABG Base Excess 13 mEq/L (-2 to 3) H 02/14/18 13:14 VBG pH 7.27 pH Units (7.32-7.42) L 02/14/18 11:23 VBG pCO2 91 mmHg (41-51) H* 02/14/18 11:23 VBG pO2 207 mmHg (25-50) H 02/14/18 11:23 VBG HCO3 42 mEq/L (21-27) H 02/14/18 11:23 Carboxyhemoglobin 8.1 % (0-5) H 02/14/18 10:30 Sodium 126 mEq/L (136-145) L 02/14/18 10:30 Chloride 81 mEq/L (98-107) L 02/14/18 10:30 Carbon Dioxide 43 mEq/L (23-29) H* 02/14/18 10:30 Creatinine 0.56 mg/dL (0.60-1.20) L 02/14/18 10:30 BUN/Creatinine Ratio 30 (6-26) H 02/14/18 10:30 Glucose 137 mg/dL (70-105) H 02/14/18 10:30 POC Glucose 206 mg/dL (70-99) H 02/14/18 14:04 Calculated Osmolality 266 (280-300) L 02/14/18 10:30 Lactic Acid 0.4 mmol/L (0.5-2.2) L 02/14/18 11:44 Urine Protein 100 mg/dL (Neg-Trace) H 02/14/18 11:39 Urine Blood Small (Negative) H 02/14/18 11:39 Urine Bilirubin Small (Negative) H 02/14/18 11:39 Urine Microscopic RBC 15-30 per hpf (0-3) H 02/14/18 11:39 Urine Microscopic WBC 5-15 per hpf (0-3) H 02/14/18 11:39 Ur Squamous Epith Cells Many per lpf (None-Few) H 02/14/18 11:39 Urine Bacteria Moderate per hpf (None-Few) H 02/14/18 11:39 Granular Casts Few per lpf (None Seen) H 02/14/18 11:39 Urine Mucus Many (Few) H 02/14/18 11:39 Urine Yeast Few per hpf (None Seen) H 02/14/18 11:39 - Attending Attestation I examined this patient and my medical decision-making was reviewed with the Resident Physician. I agree with the documented findings, disposition and augustine atment plan as described except to the extent set forth below. Patient seen and examined. Labs, radiology, chart personally reviewed. I was called by the emergency room physician to evaluate this patient for acute on chronic respiratory failure and I saw the patient in the emergency room as well as in the ICU. Agree with resident's history and physical, assessment, plan with following comments: [employer]: Patient does not follows commands, patient is on sedation and she will need sedation for the vent synchrony. Pulmonary: Patient continued to smoke tobacco and this is from family at the bedside with multiple exacerbations with outpatient treatment as well according to the family. Prognosis is poor and family has agreed palliative care to see the patient to discuss her overall goal of care. Patient will be treated for COPD exacerbation. Systemic steroids plus empiric antibiotics and bronch odilators. I have changed her vent setting with lowering PEEP and FiO2 and there is some evidence of intrinsic PEEP which I am hoping with sedation there will be vent synchrony and to improve with bronchodilators. Cardiovascular: Blood pressure is fluctuating and she was placed on nitroglycerin. Gentle diuresis GI: Nutrition per dietary and GI prophylaxis per routine Heme: DVT prophylaxis per routine ID: Continue antibiotics and plan to de-escalation Renal; urine out put and renal funtion reviewed Endorcine: blood glucose is monitored Lines: all lines checked and no evidence of infections Skin: skin care to prevent pressure ulcers per nursing routine care I spent 40 min of Critical Care time with this patient. It involved decision making of high complexity to assess, manipulate, and support vital organ system failure and/or to prevent further life threatening deterioration of the pat ient's condition. The time involved in the performance of separately reportable procedures was not counted toward critical care time. <Omero Daniel W - Last Filed: 02/14/18 16:41> Date of Encounter: 02/14/18 Time of Encounter: 13:24 Assessment and Plan (1) Acute and chronic respiratory failure Current visit: No Status: Acute Acute on chronic respiratory failure with hypercapnia well compensated Chronic COPD and CHF Chronic smoker Intubated and sedated on propafol currently Per daughters report she does not believe patient was taking her lasix Patient presented to the ED and was initially placed on BiPAP but had increasing respiratory decline and was subsequently intubated AB.31, 86, 316, 43, 100, 13 Na 126 and Cl 81 likely hypervolemic hyponatremia Patient needs diuresis but BP is too low consider if could be tolerated Fluid restriction Zosyn day 1 (single dose of levofloxacin in ED) sputum culture pending [facility] scheduled Solumedrol 60mg q8 Qualifiers: Respiratory failure complication: hypercapnia Qualified Code(s): J96.22 - Acute and chronic respiratory failure with hypercapnia (2) COPD (chronic obstructive pulmonary disease) Current visit: No Status: Chronic plan as above Qualifiers: COPD type: unspecified COPD Qualified Code(s): J44.9 - Chronic obstructive pulmonary disease, unspecified (3) Pneumonia Current visit: No Status: Suspected CXR findings concerning for ppneumonia, however, atelectasis more likely Underlying COPD Zosyn started Sputum culture pending Qualifiers: Pneumonia type: due to unspecified organism Laterality: bilateral Lung location: unspecified part of lung Qualified Code(s): J18.9 - Pneumonia, unspecified organism (4) CAD (coronary artery disease) Current visit: No Status: Chronic Known history Qualifiers: Coronary Disease-Associated Artery/Lesion type: [place] artery [place] vs. transplanted heart: [place] heart Associated angina: without angina Qualified Code(s): I25.10 - Atherosclerotic heart disease of [place] coronary artery without angina pectoris (5) DVT prophylaxis Current visit: No Status: Acute heparin protonix History of Present Illness Chief complaint: respiratory distress HPI: 67-year-old female past medical history of COPD, CHF, having issues with requiring intubations in the past when she becomes short of breath, presents emergency department via EMS with concerns for shortness of breath the last day. Reports that she takes Lasix daily. Her daughter is not convinced that she has taken her Lasix over the last couple days. Patient was originally placed on BiPAP but continued to decline. She was subsequently intubated. Patient was examined at bedside. Daughter was present. Past Med Surg Social Fam HX - Past Medical History Medical history: COPD, hypertension Additional medical history: unsure about CHF, recent falls Psychiatric history: anxiety - Past Surgical History Surgical History: hysterectomy, orthopedic, other Additional surgical history: right knee, left shoulder, left arm, right ankle - Social History Smoking Status: Current every day smoker Smokeless Tobacco Status: No Alcohol use: none Drug use: none - Family History Mother Family Member Ethnicity: Non- Living Status: Hx Family Cardiac Disorders: Yes Hx Family Cancer: Yes (Colon) Hx Family Neurologic Disorders: Yes (cva) Hx Family HEENT Disorders: Yes (macular degeneration) Father Adopted: No Family Member Ethnicity: Non- Living Status: Hx Family Cardiac Disorders: Yes Hx Family Respiratory Disorders: No Hx Family Cancer: Yes (colon ca 1980) Hx Family GI Disorders: No Hx Family Endocrine Disorder: No Hx Family Neuromuscular Disorders: No Hx Family Neurologic Disorders: Yes (CVA with left side weakness) Hx Family HEENT Disorders: Yes (macular degeneration) Hx Family Autoimmune Disorders: No ROS unobtainable: due to endotracheal tube All Systems: The remainder of the systems were reviewed and are negative Physical Examination Vital Signs: Vital Signs, Last 4 Hours Temp Pulse Resp BP Pulse Ox 02/14/18 13:04 100 14 73/30 96 02/14/18 12:45 117 14 104/30 97 02/14/18 12:30 116 14 118/79 96 02/14/18 12:25 108 14 116/70 97 02/14/18 12:20 109 14 139/88 98 02/14/18 12:16 111 12 130/79 97 02/14/18 12:12 109 18 102/69 96 02/14/18 11:55 106 22 107/64 93 02/14/18 11:50 106 24 104/45 93 02/14/18 11:45 105 22 103/58 93 02/14/18 11:40 105 22 115/86 93 02/14/18 11:35 105 24 122/61 95 02/14/18 11:32 26 134/87 93 02/14/18 11:30 106 27 118/66 93 02/14/18 11:25 107 26 134/87 93 02/14/18 11:19 103 22 145/82 92 02/14/18 11:15 104 30 138/88 92 02/14/18 11:10 105 25 152/110 93 02/14/18 11:06 108 30 167/106 92 02/14/18 11:00 103 12 183/130 94 02/14/18 10:37 95 02/14/18 10:24 98.7 F 96 25 185/113 85 General appearance: other (intubated and sedated with propafol) Eyes: nonicteric ENT: oropharynx dry Auscultation: bilateral: wheezes Cardiovascular: regular rate and rhythm Gastrointestinal: normoactive bowel sounds, soft, non-tender Extremities: edema unable to assess due to mental status Results - Laboratory Findings CBC and BMP: 02/14/18 10:30 02/14/18 10:30 ABG ABG pH 7.31 pH Units (7.32-7.45) L 02/14/18 13:14 ABG pCO2 86 mmHg (35-45) H* 02/14/18 13:14 ABG pO2 316 mmHg (85-104) H 02/14/18 13:14 ABG O2 Saturation 100 % (95-98) H 02/14/18 13:14 Abnormal lab findings: Abnormal lab results WBC 12.0 K/mcL (4.3-11.1) H 02/14/18 10:30 MPV 8.6 fL (9.4-12.4) L 02/14/18 10:30 Neutrophils # 10.3 K/mcL (1.6-8.9) H 02/14/18 10:30 ABG pH 7.31 pH Units (7.32-7.45) L 02/14/18 13:14 ABG pCO2 86 mmHg (35-45) H* 02/14/18 13:14 ABG pO2 316 mmHg (85-104) H 02/14/18 13:14 ABG HCO3 43 mEq/L (21-27) H 02/14/18 13:14 ABG Total CO2 46 mEq/L (20-26) H 02/14/18 13:14 ABG O2 Saturation 100 % (95-98) H 02/14/18 13:14 ABG Base Excess 13 mEq/L (-2 to 3) H 02/14/18 13:14 VBG pH 7.27 pH Units (7.32-7.42) L 02/14/18 11:23 VBG pCO2 91 mmHg (41-51) H* 02/14/18 11:23 VBG pO2 207 mmHg (25-50) H 02/14/18 11:23 VBG HCO3 42 mEq/L (21-27) H 02/14/18 11:23 Carboxyhemoglobin 8.1 % (0-5) H 02/14/18 10:30 Sodium 126 mEq/L (136-145) L 02/14/18 10:30 Chloride 81 mEq/L (98-107) L 02/14/18 10:30 Carbon Dioxide 43 mEq/L (23-29) H* 02/14/18 10:30 Creatinine 0.56 mg/dL (0.60-1.20) L 02/14/18 10:30 BUN/Creatinine Ratio 30 (6-26) H 02/14/18 10:30 Glucose 137 mg/dL (70-105) H 02/14/18 10:30 Calculated Osmolality 266 (280-300) L 02/14/18 10:30 Lactic Acid 0.4 mmol/L (0.5-2.2) L 02/14/18 11:44 Urine Protein 100 mg/dL (Neg-Trace) H 02/14/18 11:39 Urine Blood Small (Negative) H 02/14/18 11:39 Urine Bilirubin Small (Negative) H 02/14/18 11:39 Urine Microscopic RBC 15-30 per hpf (0-3) H 02/14/18 11:39 Urine Microscopic WBC 5-15 per hpf (0-3) H 02/14/18 11:39 Ur Squamous Epith Cells Many per lpf (None-Few) H 02/14/18 11:39 Urine Bacteria Moderate per hpf (None-Few) H 02/14/18 11:39 Granular Casts Few per lpf (None Seen) H 02/14/18 11:39 Urine Mucus Many (Few) H 02/14/18 11:39 Urine Yeast Few per hpf (None Seen) H 02/14/18 11:39
[2018-02-14] MEDS ORDERED: Naloxone 0.4 MG/ML INJ IVP PRN (13:41)
[2018-02-14] MEDS ORDERED: Artificial Tears SOLN 15 ML BOTTLE BOTH EYES PRN (14:27)
[2018-02-14] MEDS ORDERED: *HR* Dextrose 50 % in Water (Syg) 50 ML SYRINGE IVP PRN (14:39)
[2018-02-14] MEDS ORDERED: Dextrose Gel 15 GM/37.5 ML TUBE PO PRN ×2 (14:39)
[2018-02-14] MEDS ORDERED: D5% in Water 1,000 ML IVC PRN (14:39)
[2018-02-14] MEDS: Piperacillin/Tazobactam 3.375 GM in 0.9 % Sodium Chloride Mini Bag 100 ML IVPB SCH ×2 (14:49→21:16)
[2018-02-14] MEDS: Ipratropium/Albuterol Neb 3 ML IH SCH ×3 (15:59→23:15)
[2018-02-14] MEDS: Artificial Tears SOLN 15 ML BOTTLE BOTH EYES SCH ×2 (16:00→20:05)
[2018-02-14] MEDS: Pantoprazole 40 MG VIAL IVP SCH (16:00)
[2018-02-14] MEDS: MethylPREDNISolone 40 MG/ML VIAL IVP SCH (16:01)
[2018-02-14] MEDS: Insulin LISPRO 300 UNITS/3 ML VIAL SQ SCH (17:37)
[2018-02-14] MEDS: *HR* Heparin 5,000 UNIT/ML VIAL SQ SCH (17:37)
[2018-02-14] MEDS: Dexmedetomidine HCl 400 MCG/100 ML MLS IVC SCH (20:02)
[2018-02-14] MEDS: Chlorhexidine Rinse 15 ML MOUTHWASH MM SCH (20:05)
[2018-02-15] MEDS: Insulin LISPRO 300 UNITS/3 ML VIAL SQ SCH ×2 (00:02→07:35)
[2018-02-15] MEDS: MethylPREDNISolone 40 MG/ML VIAL IVP SCH ×2 (00:10→07:51)
[2018-02-15] MEDS: Artificial Tears SOLN 15 ML BOTTLE BOTH EYES SCH ×3 (00:10→07:47)
[2018-02-15 04:01] LABS: VBG Ionized Calcium 0.92 mmol/L (1.15-1.35)
[2018-02-15] MEDS: Ipratropium/Albuterol Neb 3 ML IH SCH ×7 (04:05→23:17)
[2018-02-15 04:19] LABS: Alanine Aminotransferase 15 Units/L (7-52); Albumin 3.2 g/dL (3.5-5.7); Albumin/Globulin Ratio 1.3 (1.1-2.2); Alkaline Phosphatase 80 Units/L (34-104); Aspartate Amino Transferase 15 Units/L (13-39); BUN/Creatinine Ratio 28 (6-26); Bilirubin,Total 0.4 mg/dL (0.3-1.0); Blood Urea Nitrogen 19 mg/dL (8-23); Calcium 8.8 mg/dL (8.6-10.3); Carbon Dioxide 37 mEq/L (23-29); Chloride 83 mEq/L (98-107); Globulin 2.4 g/dL (2.4-3.5); Glucose 146 mg/dL (70-105); Magnesium 1.5 mg/dL (1.6-2.6); Osmolality,Calculated 269 (280-300); Phosphorous 2.2 mg/dL (2.7-4.5); Potassium 3.9 mEq/L (3.5-5.1); Sodium 127 mEq/L (136-145); Total Protein 5.6 g/dL (6.4-8.9); eGFR For Non-African Americans > 60 (> 60)
[2018-02-15 04:24] LABS: Basophils % 0.1 %; Eosinophils % 0.1 %; Hematocrit 36.1 % (35.3-44.9); Immature Granulocytes % 0.5 % (0-4); Lymphocytes # 0.4 K/mcL (0.6-4.6); Lymphocytes % 3.5 %; Mean Corpuscular HGB Conc 33.8 g/dL (31.6-35.5); Mean Corpuscular Hemoglobin 30.5 pg (28.0-33.3); Mean Corpuscular Volume 90.3 fL (83.0-100.0); Mean Platelet Volume 9.2 fL (9.4-12.4); Monocytes # 0.3 K/mcL (0.0-1.3); Monocytes % 2.1 %; Neutrophils # 11.1 K/mcL (1.6-8.9); Platelet Count 260 K/mcL (140-400); Red Cell Distribution Width 13.5 % (11.5-14.5); Segmented Neutrophils % 93.7 %
[2018-02-15] MEDS: Nitroglycerin 25 MG/250 ML INFUS..BTL IVC SCH ×7 (04:24→08:38)
[2018-02-15 04:30] LABS: Hemoglobin 12.2 g/dL (11.5-15.4)
[2018-02-15 04:48] LABS: ABG Base Excess 14 mEq/L (-2 to 3); ABG HCO3 41 mEq/L (21-27); ABG Oxygen Saturation 97 % (95-98); ABG PCO2 56 mmHg (35-45); ABG PH 7.47 pH Units (7.32-7.45); ABG PO2 85 mmHg (85-104); ABG TCO2 42 mEq/L (20-26); Blood Gas Modality ASSIST CONTROL; Blood Gas PEEP 8 cm H2O; Blood Gas Respiration Rate 14; Blood Gas VT 550 cc
[2018-02-15] MEDS: Piperacillin/Tazobactam 3.375 GM in 0.9 % Sodium Chloride Mini Bag 100 ML IVPB SCH ×3 (05:13→21:37)
[2018-02-15] MEDS: *HR* Heparin 5,000 UNIT/ML VIAL SQ SCH ×2 (05:17→18:53)
[2018-02-15] MEDS ORDERED: Calcium Gluconate 2,000 MG in 0.9 % Sodium Chloride 100 ML IVPB ONE (07:19)
[2018-02-15] MEDS: Pantoprazole 40 MG VIAL IVP SCH (07:51)
--- NOTE | 2018-02-15 08:52 | Pulmonology Progress Note ---
<Omero Daniel W - Last Filed: 02/15/18 17:43> Date of Encounter: 02/15/18 Time of Encounter: 08:51 Assessment and Plan (1) Acute and chronic respiratory failure Current Visit: No Status: Acute Acute on chronic respiratory failure with hypercapnia well compensated Chronic COPD and CHF Chronic smoker extubated to BiPAP Per daughters report she does not believe patient was taking her lasix transfer to floor, accepted by Dr. Coe Patient needs diuresis but BP is too low consider if could be tolerated Fluid restriction Zosyn day 2 (single dose of levofloxacin in ED) Vanc day 1 electrolyte replacement sputum culture pending duonebs scheduled Solumedrol 60mg q8 Qualifiers: Respiratory failure complication: hypercapnia Qualified Code(s): J96.22 - Acute and chronic respiratory failure with hypercapnia (2) COPD (chronic obstructive pulmonary disease) Current Visit: No Status: Chronic plan as above Qualifiers: COPD type: unspecified COPD Qualified Code(s): J44.9 - Chronic obstructive pulmonary disease, unspecified (3) Pneumonia Current Visit: No Status: Suspected CXR findings concerning for ppneumonia, however, atelectasis more likely Underlying COPD Zosyn and vanc Sputum culture pending Qualifiers: Pneumonia type: due to unspecified organism Laterality: bilateral Lung location: unspecified part of lung Qualified Code(s): J18.9 - Pneumonia, unspecified organism (4) CAD (coronary artery disease) Current Visit: No Status: Chronic Known history Qualifiers: Coronary Disease-Associated Artery/Lesion type: [place] artery [place] vs. transplanted heart: [place] heart Associated angina: without angina Qualified Code(s): I25.10 - Atherosclerotic heart disease of [place] coronary artery without angina pectoris (5) DVT prophylaxis Current Visit: No Status: Acute heparin protonix Subjective Principal diagnosis: COPD exacerbation Interval history: Patient extubated to BiPAP and tolerating well. Palliative consulted for recurrent intubations. Objective PUL Vital signs: Last Vital Signs Temp 99.8 F H 02/15/18 03:40 Pulse 112 02/15/18 05:57 Resp 24 02/15/18 08:39 BP 135/84 02/15/18 05:57 Pulse Ox 94 02/15/18 08:41 General appearance: no acute distress Eyes: nonicteric ENT: oropharynx moist Neck: supple Auscultation: bilateral: wheezes Cardiovascular: regular rate and rhythm Gastrointestinal: normoactive bowel sounds, soft, non-tender Extremities: no cyanosis, edema normal mental status mood appropriate, affect normal Ventilator Settings Ventilator Settings: Ventilator Settings, Last 8 Hours Ventilator Tidal Volume 550 Setting Ventilator Tidal Volume 550 Setting Ventilator Tidal Volume 550 Setting Ventilator Tidal Volume 550 Setting Ventilator Tidal Volume 550 Setting Ventilator Tidal Volume 550 Setting Ventilator Tidal Volume 550 Setting Ventilator Tidal Volume 550 Setting Ventilator Tidal Volume 550 Setting Ventilator Tidal Volume 550 Setting Ventilator Respiratory Rate 14 Setting Ventilator Respiratory Rate 14 Setting Ventilator Respiratory Rate 14 Setting Ventilator Respiratory Rate 14 Setting Ventilator Respiratory Rate 14 Setting Ventilator Respiratory Rate 14 Setting Ventilator Respiratory Rate 14 Setting Ventilator Respiratory Rate 14 Setting Ventilator Respiratory Rate 14 Setting Ventilator Respiratory Rate 14 Setting Actual Respiratory Rate 14 Actual Respiratory Rate 14 Actual Respiratory Rate 15 Actual Respiratory Rate 17 Actual Respiratory Rate 14 Actual Respiratory Rate 14 Actual Respiratory Rate 17 Actual Respiratory Rate 14 Actual Respiratory Rate 14 Actual Respiratory Rate 15 Positive End Expiratory 5 Pressure Positive End Expiratory 8 Pressure Positive End Expiratory 8 Pressure Positive End Expiratory 8 Pressure Positive End Expiratory 8 Pressure Positive End Expiratory 8 Pressure Positive End Expiratory 8 Pressure Positive End Expiratory 8 Pressure Positive End Expiratory 8 Pressure Positive End Expiratory 8 Pressure Positive End Expiratory 8 Pressure Peak Inspiratory Airway 30 Pressure Peak Inspiratory Airway 30 Pressure Peak Inspiratory Airway 32 Pressure Peak Inspiratory Airway 30 Pressure Peak Inspiratory Airway 33 Pressure Peak Inspiratory Airway 36 Pressure Peak Inspiratory Airway 29 Pressure Peak Inspiratory Airway 31 Pressure Peak Inspiratory Airway 31 Pressure Peak Inspiratory Airway 32 Pressure Results - Laboratory Findings CBC and BMP: 02/15/18 03:45 02/15/18 03:45 ABG ABG pH 7.47 pH Units (7.32-7.45) H 02/15/18 04:42 ABG pCO2 56 mmHg (35-45) H 02/15/18 04:42 ABG pO2 85 mmHg (85-104) 02/15/18 04:42 ABG O2 Saturation 97 % (95-98) 02/15/18 04:42 Abnormal lab findings: Abnormal lab results WBC 11.9 K/mcL (4.3-11.1) H 02/15/18 03:45 MPV 9.2 fL (9.4-12.4) L 02/15/18 03:45 Neutrophils # 11.1 K/mcL (1.6-8.9) H 02/15/18 03:45 Lymphocytes # 0.4 K/mcL (0.6-4.6) L 02/15/18 03:45 ABG pH 7.47 pH Units (7.32-7.45) H 02/15/18 04:42 ABG pCO2 56 mmHg (35-45) H 02/15/18 04:42 ABG HCO3 41 mEq/L (21-27) H 02/15/18 04:42 ABG Total CO2 42 mEq/L (20-26) H 02/15/18 04:42 ABG Base Excess 14 mEq/L (-2 to 3) H 02/15/18 04:42 VBG pH 7.27 pH Units (7.32-7.42) L 02/14/18 11:23 VBG pCO2 91 mmHg (41-51) H* 02/14/18 11:23 VBG pO2 207 mmHg (25-50) H 02/14/18 11:23 VBG HCO3 42 mEq/L (21-27) H 02/14/18 11:23 Carboxyhemoglobin 8.1 % (0-5) H 02/14/18 10:30 Sodium 127 mEq/L (136-145) L 02/15/18 03:45 Chloride 83 mEq/L (98-107) L 02/15/18 03:45 Carbon Dioxide 37 mEq/L (23-29) H 02/15/18 03:45 BUN/Creatinine Ratio 28 (6-26) H 02/15/18 03:45 Glucose 146 mg/dL (70-105) H 02/15/18 03:45 POC Glucose 134 mg/dL (70-99) H 02/14/18 23:48 Calculated Osmolality 269 (280-300) L 02/15/18 03:45 Lactic Acid 0.4 mmol/L (0.5-2.2) L 02/14/18 11:44 Venous Ioniz Calcium 0.92 mmol/L (1.15-1.35) L 02/15/18 03:59 Phosphorus 2.2 mg/dL (2.7-4.5) L 02/15/18 03:45 Magnesium 1.5 mg/dL (1.6-2.6) L 02/15/18 03:45 Serum Total Protein 5.6 g/dL (6.4-8.9) L 02/15/18 03:45 Albumin 3.2 g/dL (3.5-5.7) L 02/15/18 03:45 Urine Protein 100 mg/dL (Neg-Trace) H 02/14/18 11:39 Urine Blood Small (Negative) H 02/14/18 11:39 Urine Bilirubin Small (Negative) H 02/14/18 11:39 Urine Microscopic RBC 15-30 per hpf (0-3) H 02/14/18 11:39 Urine Microscopic WBC 5-15 per hpf (0-3) H 02/14/18 11:39 Ur Squamous Epith Cells Many per lpf (None-Few) H 02/14/18 11:39 Urine Bacteria Moderate per hpf (None-Few) H 02/14/18 11:39 Granular Casts Few per lpf (None Seen) H 02/14/18 11:39 Urine Mucus Many (Few) H 02/14/18 11:39 Urine Yeast Few per hpf (None Seen) H 02/14/18 11:39 - Microbiology Findings Microbiology Findings: Microbiology, Last 48 Hours 02/14/18 15:45 Sputum Culture - Preliminary Sputum - Clinical Findings Intake & Output: Intake & Output 02/14/18 02/15/18 02/15/18 23:59 07:59 15:59 Intake Total 254.5 / 254.5 100 / 100 0.5 / 0.5 Output Total 300 / 300 250 / 250 Balance -45.5 / -45.5 -150 / -150 0.5 / 0.5 Weight 100.6 kg Consult Discharge Plan - Plan Referrals: Dion Whitman MD [Primary Care Provider] - <Shannen Rosario - Last Filed: 02/16/18 08:17> Date of Encounter: 02/16/18 Objective PUL Vital signs: Last Vital Signs Temp 99.2 F 02/15/18 08:00 Pulse 112 02/15/18 05:57 Resp 24 02/15/18 08:39 BP 135/84 02/15/18 05:57 Pulse Ox 94 02/15/18 08:41 Ventilator Settings Ventilator Settings: Ventilator Settings, Last 8 Hours Ventilator Tidal Volume 550 Setting Ventilator Tidal Volume 550 Setting Ventilator Tidal Volume 550 Setting Ventilator Tidal Volume 550 Setting Ventilator Tidal Volume 550 Setting Ventilator Tidal Volume 550 Setting Ventilator Tidal Volume 550 Setting Ventilator Tidal Volume 550 Setting Ventilator Respiratory Rate 14 Setting Ventilator Respiratory Rate 14 Setting Ventilator Respiratory Rate 14 Setting Ventilator Respiratory Rate 14 Setting Ventilator Respiratory Rate 14 Setting Ventilator Respiratory Rate 14 Setting Ventilator Respiratory Rate 14 Setting Ventilator Respiratory Rate 14 Setting Actual Respiratory Rate 14 Actual Respiratory Rate 14 Actual Respiratory Rate 15 Actual Respiratory Rate 17 Actual Respiratory Rate 14 Actual Respiratory Rate 14 Actual Respiratory Rate 17 Actual Respiratory Rate 14 Positive End Expiratory 5 Pressure Positive End Expiratory 8 Pressure Positive End Expiratory 8 Pressure Positive End Expiratory 8 Pressure Positive End Expiratory 8 Pressure Positive End Expiratory 8 Pressure Positive End Expiratory 8 Pressure Positive End Expiratory 8 Pressure Positive End Expiratory 8 Pressure Peak Inspiratory Airway 30 Pressure Peak Inspiratory Airway 30 Pressure Peak Inspiratory Airway 32 Pressure Peak Inspiratory Airway 30 Pressure Peak Inspiratory Airway 33 Pressure Peak Inspiratory Airway 36 Pressure Peak Inspiratory Airway 29 Pressure Peak Inspiratory Airway 31 Pressure Results - Laboratory Findings CBC and BMP: 02/16/18 04:01 02/16/18 04:01 ABG ABG pH 7.47 pH Units (7.32-7.45) H 02/15/18 04:42 ABG pCO2 56 mmHg (35-45) H 02/15/18 04:42 ABG pO2 85 mmHg (85-104) 02/15/18 04:42 ABG O2 Saturation 97 % (95-98) 02/15/18 04:42 Abnormal lab findings: Abnormal lab results WBC 11.9 K/mcL (4.3-11.1) H 02/15/18 03:45 MPV 9.2 fL (9.4-12.4) L 02/15/18 03:45 Neutrophils # 11.1 K/mcL (1.6-8.9) H 02/15/18 03:45 Lymphocytes # 0.4 K/mcL (0.6-4.6) L 02/15/18 03:45 ABG pH 7.47 pH Units (7.32-7.45) H 02/15/18 04:42 ABG pCO2 56 mmHg (35-45) H 02/15/18 04:42 ABG HCO3 41 mEq/L (21-27) H 02/15/18 04:42 ABG Total CO2 42 mEq/L (20-26) H 02/15/18 04:42 ABG Base Excess 14 mEq/L (-2 to 3) H 02/15/18 04:42 VBG pH 7.27 pH Units (7.32-7.42) L 02/14/18 11:23 VBG pCO2 91 mmHg (41-51) H* 02/14/18 11:23 VBG pO2 207 mmHg (25-50) H 02/14/18 11:23 VBG HCO3 42 mEq/L (21-27) H 02/14/18 11:23 Carboxyhemoglobin 8.1 % (0-5) H 02/14/18 10:30 Sodium 127 mEq/L (136-145) L 02/15/18 03:45 Chloride 83 mEq/L (98-107) L 02/15/18 03:45 Carbon Dioxide 37 mEq/L (23-29) H 02/15/18 03:45 BUN/Creatinine Ratio 28 (6-26) H 02/15/18 03:45 Glucose 146 mg/dL (70-105) H 02/15/18 03:45 POC Glucose 134 mg/dL (70-99) H 02/14/18 23:48 Calculated Osmolality 269 (280-300) L 02/15/18 03:45 Lactic Acid 0.4 mmol/L (0.5-2.2) L 02/14/18 11:44 Venous Ioniz Calcium 0.92 mmol/L (1.15-1.35) L 02/15/18 03:59 Phosphorus 2.2 mg/dL (2.7-4.5) L 02/15/18 03:45 Magnesium 1.5 mg/dL (1.6-2.6) L 02/15/18 03:45 Serum Total Protein 5.6 g/dL (6.4-8.9) L 02/15/18 03:45 Albumin 3.2 g/dL (3.5-5.7) L 02/15/18 03:45 Urine Protein 100 mg/dL (Neg-Trace) H 02/14/18 11:39 Urine Blood Small (Negative) H 02/14/18 11:39 Urine Bilirubin Small (Negative) H 02/14/18 11:39 Urine Microscopic RBC 15-30 per hpf (0-3) H 02/14/18 11:39 Urine Microscopic WBC 5-15 per hpf (0-3) H 02/14/18 11:39 Ur Squamous Epith Cells Many per lpf (None-Few) H 02/14/18 11:39 Urine Bacteria Moderate per hpf (None-Few) H 02/14/18 11:39 Granular Casts Few per lpf (None Seen) H 02/14/18 11:39 Urine Mucus Many (Few) H 02/14/18 11:39 Urine Yeast Few per hpf (None Seen) H 02/14/18 11:39 - Microbiology Findings Microbiology Findings: Microbiology, Last 48 Hours 02/14/18 15:45 Sputum Culture - Preliminary Sputum - Clinical Findings Intake & Output: Intake & Output 02/14/18 02/15/18 02/15/18 23:59 07:59 15:59 Intake Total 254.5 / 254.5 100 / 100 0.5 / 0.5 Output Total 300 / 300 250 / 250 175 / 175 Balance -45.5 / -45.5 -150 / -150 -174.5 / -174.5 Weight 100.6 kg - Attending Attestation I examined this patient and my medical decision-making was reviewed with the Resident Physician. I agree with the documented findings, disposition and treatment plan as described except to the extent set forth below. Patient seen and examined. Labs, radiology, chart personally reviewed. 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 My suspicion this to be pneumonia is low and we will disconnect anti biotic there is a possibility with mental status change aspiration pneumonia can happen. Continue bronchodilators and advised her to quit smoking. NIV can be used PRN. Cardiovascular: stable GI: Nutrition per dietary and GI prophylaxis per routine Heme: DVT prophylaxis per routine ID: Continue antibiotics and plan to de-escalation Renal; urine out put and renal funtion reviewed Endorcine: blood glucose is monitored Lines: all lines checked and no evidence of infections Skin: skin care to prevent pressure ulcers per nursing routine care Pt is stable to be transferred to the floor.
[2018-02-15] MEDS: Dexmedetomidine HCl 400 MCG/100 ML MLS IVC SCH (10:26)
[2018-02-15] MEDS: Chlorhexidine Rinse 15 ML MOUTHWASH MM SCH (10:28)
[2018-02-15] MEDS ORDERED: D5% in Water 1,000 ML IVC PRN (11:24)
[2018-02-15] MEDS ORDERED: Nitroglycerin 25 MG/250 ML INFUS..BTL IVC SCH (11:24)
[2018-02-15] MEDS ORDERED: Naloxone 0.4 MG/ML INJ IVP PRN (11:24)
[2018-02-15] MEDS ORDERED: Dextrose Gel 15 GM/37.5 ML TUBE PO PRN ×2 (11:24)
[2018-02-15] MEDS ORDERED: *HR* Dextrose 50 % in Water (Syg) 50 ML SYRINGE IVP PRN (11:24)
--- NOTE | 2018-02-15 11:37 | Palliative - Consult Note ---
Date of Encounter: 02/15/18 Time of Encounter: 11:00 - Assessment and Plan (1) Weakness Current Visit: Yes Status: Acute Assessment and plan: Patient and patient's daughter present at bedside, report patient has difficulty getting up and down. Patient has previously been in [facility] for rehab, but refuses this as an option. Previously had [facility] [employer], and felt like "they didn't do anything." Agrees to have PT/OT Consults and consider Critical access hospital with rehab at discharge. (2) SANJUANA (obstructive sleep apnea) Current Visit: No Status: Chronic Assessment and plan: Patient educated and necessity of wearing BiPAP at night at home, verbalized understanding. (3) Acute hypercapnic respiratory failure Current Visit: No Status: Resolved Assessment and plan: Patient admitted for recurrent respiratory failure. Was intubated, now extubated, tolerating well. Discussed recurrence and need to follow treatment plan including oxygen, Lasix, and BiPAP at home. Patient verbalized understanding. Compliance will remain an issue with patient. Patient also expressed desire to quit smoking. (4) Patellar fracture Current Visit: No Status: Acute Assessment and plan: Patient will need to follow up outpatient. Qualifiers: Encounter type: initial encounter Fracture type: closed Fracture morphology: comminuted Fracture alignment: nondisplaced Laterality: right Qualified Code(s): S82.044A - Nondisplaced comminuted fracture of right patella, initial encounter for closed fracture (5) COPD (chronic obstructive pulmonary disease) Current Visit: No Status: Chronic Qualifiers: COPD type: unspecified COPD Qualified Code(s): J44.9 - Chronic obstructive pulmonary disease, unspecified (6) Pulmonary edema Current Visit: Yes Status: Acute Assessment and plan: Patient needs to continue Lasix treatment at home. Qualifiers: Chronicity: chronic Qualified Code(s): J81.1 - Chronic pulmonary edema (7) Goals of care, counseling/discussion Current Visit: Yes Status: Acute Assessment and plan: Met with patient and patient's daughter Gordon at patient's bedside for goals of care discussion. Evaluated understanding of what brought patient to hospital. Patient reports only remembering shortness of breath and calling EMS. Patient acknowledged frequent readmissions for COPD. Evaluated for compliance with medication compliance. Patient admits to refusing to take her Lasix as prescribed as she has to void frequently. Patient has wheelchair and BSC in place at home. Explained necessity of Lasix to control fluid and decreased hospital readmissions; verbalized understanding. Patient reports she hates coming back to the hospital and getting intubated. Discussed CODE STATUS; patient desires to remain FULL CODE with FULL aggressive treatment. Educated patient on option of hospice care, what is available, and qualifications. Patient reports she is not ready to hospice at this time. Verbalized understanding of how to enroll in service when desires. Patient reports she is going to quit smoking, take her Lasix, use BiPAP at night, and wear oxygen. Updated ICU residents on plan of care. PT/OT consult ordered. Palliative care will follow up on Sunday to evaluate patient's decision regarding [facility] PT/OT. Palliative-CN HPI - Data of Consult Patient: new to practice Consult date: 02/15/18 Requesting Physician: Shannen Rosario MD Primary Care Provider: Dion Whitman MD - Consult Narrative Palliative Care/Comfort Measures: Palliative care Reason for consult: Recurrent intubations History of present illness: Ms. Cook is a 67 year old female arrived to [facility] ER on 02/14/18, for dyspnea times 1 day via EMS. PMH: CHF, COPD, HTN, and anxiety. Patient admitted and medically managed for: COPDE, Respiratory failure, Pneumonia, Pulmonary Edema. Patient has been admitted to [facility] four times this calender year. Patient has required frequent intubations. Patient intially was placed on BiPAP; however, continued deteriorating, decision was made to intubate patient. Patient needed to be diuresed, but was unable to be performed due to hypotension. Patient passed CPAP trials and was extubated. Patient sitting up in bed upon arrival for assessment. During introduction patient's daughter Gordon came to bedside, as well as Primary RN Lilian. Patient alert and oriented times 3. Denies nausea and vomiting. Reports a dull aching pa in to right leg, where fracture occurred. Patient denies anxiety. CC: Shannen Rosario MD - Time Spent with Patient Time: Total time spent is greater than 50% in coordination of care (as documented) at patient's floor/unit and/or counseling patient: Time with patient: 30 minutes Past Med Surg Social Fam HX - Past Medical History Medical history: COPD, hypertension Additional medical history: unsure about CHF, recent falls Psychiatric history: anxiety - Past Surgical History Surgical History: hysterectomy, orthopedic, other Additional surgical history: right knee, left shoulder, left arm, right ankle - Social History Smoking Status: Current every day smoker Smokeless Tobacco Status: No Alcohol use: none Drug use: none - Family History Mother Family Member Ethnicity: Non- Living Status: Hx Family Cardiac Disorders: Yes Hx Family Cancer: Yes (Colon) Hx Family Neurologic Disorders: Yes (cva) Hx Family HEENT Disorders: Yes (macular degeneration) Father Adopted: No Family Member Ethnicity: Non- Living Status: Hx Family Cardiac Disorders: Yes Hx Family Respiratory Disorders: No Hx Family Cancer: Yes (colon ca 1980) Hx Family GI Disorders: No Hx Family Endocrine Disorder: No Hx Family Neuromuscular Disorders: No Hx Family Neurologic Disorders: Yes (CVA with left side weakness) Hx Family HEENT Disorders: Yes (macular degeneration) Hx Family Autoimmune Disorders: No Medications and Allergies Ipratropium/Albuterol Neb [Duoneb] 3 ml IH QID PRN 08/12/15 [History] Omeprazole [PriLOSEC] 20 mg PO DAILY 08/12/15 [History] Aspirin 81 mg PO DAILY tab.chew 04/06/16 [Rx] Atorvastatin [Lipitor] 40 mg PO HS 01/26/17 [History] Metoprolol Succinate 100 mg PO DAILY 01/26/17 [History] Theophylline Anhydrous [Theophylline] 200 mg PO DAILY 04/25/17 [History] Tiotropium [Spiriva] 18 mcg IH DAILY 04/25/17 [History] ALPRAZolam [Xanax 0.5 MG Tablet] 0.25 - 0.5 mg PO BID PRN 11/13/17 [History] Cholecalciferol (D-3) [Vitamin D] 5,000 unit PO DAILY 11/13/17 [History] Fluticasone/Salmeterol [Advair 500-50 Diskus] 1 puff IH BID 11/13/17 [History] Losartan/Hydrochlorothiazide [Hyzaar 100-25 Tablet] 1 tab PO DAILY 11/13/17 [History] Albuterol Sulfate [Albuterol Inhaler] 2 puff IH Q6H PRN 02/14/18 [History] Alendronate Sodium 70 mg PO QWEEK 02/14/18 [History] Escitalopram [Lexapro] 20 mg PO DAILY 02/14/18 [History] Torsemide [Demadex] 10 - 20 mg PO DAILY PRN 02/14/18 [History] Albuterol Neb [Proventil Neb] 2.5 mg IH Q4HR PRN 02/15/18 [History] Roflumilast [Daliresp] 500 mg PO DAILY 02/15/18 [History] Allergy/AdvReac Type Severity Reaction Status Date / Time No Known Allergies Allergy Verified 02/14/18 10:35 - Respiratory Respiratory: dyspnea, dyspnea on exertion - Genitourinary Palliative ROS female: urinary frequency (due to lasix (When patient takes).) - Musculoskeletal Musculoskeletal ROS IM: joint swelling, myalgias - Psychiatric Psychiatric general PM: anxiety Palliative Care-Exam - Constitutional Vitals: Temp Pulse Resp BP Pulse Ox 99.2 F 134 19 108/68 92 02/15/18 08:00 02/15/18 09:00 02/15/18 09:00 02/15/18 09:00 02/15/18 09:00 General appearance: Present: cooperative, obese - Head Head Exam: Present: atraumatic, normal inspection - Eye Eye exam: Present: EOMI, normal appearance, PERRL, conjuntiva pink Pupils: Present: normal accommodation, PERRL - ENT ENT exam: Present: mucous membranes dry - Neck Neck exam: Present: full ROM, normal inspection - Expanded Neck Exam Neck exam: Absent: tenderness - Respiratory Respiratory exam: Present: CTAB. Absent: accessory muscle use, chest wall tenderness, tachypnea - Cardiovascular Cardiovascular exam: Present: +S1, +S2 - Expanded Cardiovascular Exam Peripheral pulses: 2+: Radial (L), Radial (R), Posterior Tibialis (L), Posterior Tibialis (R), Dorsalis Pedis (L) PM, Dorsalis Pedis (R) PM - GI/Abdominal Exam GI/Abdominal exam: Present: normal bowel sounds, soft. Absent: tenderness - Rectal Rectal exam: Present: deferred - Catheter Type: Urethral (Valerio) - Extremities Exam Extremities exam: Present: pedal edema. Absent: calf tenderness - Back Exam Back exam: Present: normal inspection - Neurological Exam Neurological exam: Present: alert, oriented X3, strengths equal and symetr throughout. Absent: altered - Expanded Neurological Exam Patient oriented to: Present: person, place, time Coma Scale Eye Opening: Spontaneous Coma Scale Motor Response: Obeys Commands Coma Scale Verbal Response: Oriented Coma Scale Total: 15 - Psychiatric Psychiatric exam: Present: normal affect, normal mood. Absent: anxious - Skin Skin exam: Present: dry, intact Internal Medicine - CN: Reslt - Labs CBC & Chem 7: 02/15/18 03:45 02/15/18 03:45 Labs: Short CBC 02/15/18 Range/Units 03:45 WBC 11.9 H (4.3-11.1) K/mcL Hgb 12.2 D (11.5-15.4) g/dL Hct 36.1 (35.3-44.9) % Plt Count 260 (140-400) K/mcL Neutrophils # 11.1 H (1.6-8.9) K/mcL BMP 02/15/18 03:45 Sodium 127 L Potassium 3.9 Chloride 83 L Carbon Dioxide 37 H BUN 19 Creatinine 0.67 Glucose 146 H Calcium 8.8 Liver Function 02/15/18 Range/Units 03:45 Total Bilirubin 0.4 (0.3-1.0) mg/dL AST 15 (13-39) Units/L ALT 15 (7-52) Units/L Alkaline Phosphatase 80 (34-104) Units/L Albumin 3.2 L (3.5-5.7) g/dL Urine 02/14/18 Range/Units 11:39 Urine Color Yellow (Yellow) Urine Clarity Clear (Clear) Urine pH 6.0 (5.0-8.0) pH Units Ur Specific [place] 1.020 (1.010-1.025) Urine Protein 100 H (Neg-Trace) mg/dL Urine Glucose (UA) Normal (Normal) mg/dL - ABG Interpretation ABG results: ABG ABG pH 7.47 pH Units (7.32-7.45) H 02/15/18 04:42 ABG pCO2 56 mmHg (35-45) H 02/15/18 04:42 ABG pO2 85 mmHg (85-104) 02/15/18 04:42 ABG O2 Saturation 97 % (95-98) 02/15/18 04:42 - Impressions Impressions Chest X-Ray 02/14/18 12:22 IMPRESSION: ET tube in satisfactory position. Otherwise stable exam with mild bibasilar atelectasis. D/ / Lino Quezada MD / Lino Quezada MD Interpreting Provider: Lino Quezada MD Consult Discharge Plan - Plan Referrals: Dion Whitman MD [Primary Care Provider] - Palliative Quality Palliative Quality: Screen for Code Status: Yes, Screen for Goals of Care: Yes, Screen for Pain: Yes, If Pain Regimen Started, Initiate Bowel Regimen: NA, Screen for Nausea/Vomitting: Yes Code Status: 02/14/18 13:41 Resuscitation Status: Active [RES] Routine Comment: Resuscitation Status: Full Code Palliative Scale - Palliative Performance Scale How ambulatory is this patient?: Mainly sit / lie What is patient's level of activity and evidence of disease?: Unable hobby/housework, Significant disease How much self-care assistance does patient require?: Occasional assistance necessary How much oral intake does the patient have?: Normal What is this patient's level of consciousness?: Full Palliative Performance Score: 50 %
[2018-02-15] MEDS ORDERED: Insulin LISPRO 300 UNITS/3 ML VIAL SQ SCH (12:00)
[2018-02-15] MEDS ORDERED: ALPRAZolam 0.5 MG TABLET PO PRN (13:05)
[2018-02-15] MEDS ORDERED: Metoprolol 100 MG TABLET PO SCH (13:15)
[2018-02-15] MEDS: methylPREDNISolone 125 MG/2 ML VIAL IVP SCH ×2 (16:18→23:40)
[2018-02-16] MEDS: Ipratropium/Albuterol Neb 3 ML IH SCH ×6 (03:40→23:16)
[2018-02-16 04:17] LABS: Basophils % 0.1 %; Hematocrit 35.7 % (35.3-44.9); Hemoglobin 11.6 g/dL (11.5-15.4); Immature Granulocytes % 0.3 % (0-4); Lymphocytes # 0.4 K/mcL (0.6-4.6); Lymphocytes % 2.7 %; Mean Corpuscular HGB Conc 32.5 g/dL (31.6-35.5); Mean Corpuscular Volume 92.2 fL (83.0-100.0); Monocytes # 0.2 K/mcL (0.0-1.3); Monocytes % 1.7 %; Neutrophils # 13.7 K/mcL (1.6-8.9); Platelet Count 259 K/mcL (140-400); Red Blood Count 3.87 M/mcL (3.82-4.97); Red Cell Distribution Width 14.1 % (11.5-14.5); Segmented Neutrophils % 95.2 %
[2018-02-16 04:35] LABS: Alanine Aminotransferase 14 Units/L (7-52); Albumin 3.3 g/dL (3.5-5.7); Albumin/Globulin Ratio 1.4 (1.1-2.2); Alkaline Phosphatase 72 Units/L (34-104); Aspartate Amino Transferase 12 Units/L (13-39); BUN/Creatinine Ratio 26 (6-26); Bilirubin,Total 0.3 mg/dL (0.3-1.0); Blood Urea Nitrogen 18 mg/dL (8-23); Calcium 8.7 mg/dL (8.6-10.3); Carbon Dioxide 38 mEq/L (23-29); Chloride 87 mEq/L (98-107); Globulin 2.4 g/dL (2.4-3.5); Glucose 150 mg/dL (70-105); Osmolality,Calculated 271 (280-300); Phosphorous 3.6 mg/dL (2.7-4.5); Potassium 4.4 mEq/L (3.5-5.1); Sodium 128 mEq/L (136-145); Total Protein 5.7 g/dL (6.4-8.9); eGFR For Non-African Americans > 60 (> 60)
[2018-02-16 04:43] LABS: VBG Ionized Calcium 1.07 mmol/L (1.15-1.35)
[2018-02-16] MEDS: *HR* Heparin 5,000 UNIT/ML VIAL SQ SCH ×2 (06:02→18:39)
[2018-02-16] MEDS: Piperacillin/Tazobactam 3.375 GM in 0.9 % Sodium Chloride Mini Bag 100 ML IVPB SCH ×3 (06:02→21:19)
[2018-02-16] MEDS ORDERED: Aminoglycoside Consult 1 EACH MC ONE (08:44)
[2018-02-16] MEDS ORDERED: Furosemide 40 MG/4 ML VIAL IVP ONE (08:54)
[2018-02-16] MEDS ORDERED: Cholecalciferol (D-3) 1,000 UNIT TABLET PO SCH (09:00)
[2018-02-16] MEDS ORDERED: Aspirin 81 MG TAB.CHEW PO SCH (09:00)
[2018-02-16] MEDS ORDERED: Metoprolol XL (24 HR) Succ 50 MG TAB.ER.24H PO SCH (09:00)
[2018-02-16] MEDS ORDERED: Pantoprazole 40 MG VIAL IVP SCH (09:00)
[2018-02-16] MEDS: methylPREDNISolone 125 MG/2 ML VIAL IVP SCH ×2 (09:15→16:44)
[2018-02-16] MEDS ORDERED: Naloxone 0.4 MG/ML INJ IVP PRN (09:32)
[2018-02-16] MEDS ORDERED: D5% in Water 1,000 ML IVC PRN (09:32)
[2018-02-16] MEDS ORDERED: Dextrose Gel 15 GM/37.5 ML TUBE PO PRN ×2 (09:32)
[2018-02-16] MEDS ORDERED: *HR* Dextrose 50 % in Water (Syg) 50 ML SYRINGE IVP PRN (09:32)
[2018-02-16] MEDS ORDERED: Budesonide/Formoterol 160/4.5 1 PUFF INH IH SCH (10:00)
[2018-02-16] MEDS: ALPRAZolam 0.5 MG TABLET PO PRN (10:11)
--- NOTE | 2018-02-16 10:19 | Pulmonology Progress Note ---
Date of Encounter: 02/16/18 Time of Encounter: 07:30 Assessment and Plan (1) COPD with exacerbation Current Visit: No Status: Acute Overall patient is improving and she is requiring less oxygen and not in any acute distress. Patient can be transferred to the floor and follow-up as outpatient in about 3-4 weeks after discharge from the hospital. Continue bronchodilators and weaning off FiO2 to keep SPO2 around 90%. Advised patient to quit smoking. Pulmonary rehabilitation would be important for patient. Patient will benefit from noninvasive ventilation for chronic hypercapnic respiratory failure as well as sleep disorder breathing and advised her to be compliance with her treatment. Patient is awaiting to be transferred to the floor. Please call for any questions. (2) Acute on chronic respiratory failure with hypercapnia Current Visit: No Status: Acute (3) Tobacco abuse Current Visit: Yes Status: Chronic (4) Tobacco abuse counseling Current Visit: Yes Status: Chronic Subjective Principal diagnosis: COPD exacerbation Interval history: Patient is feeling much better and she denies any respiratory distress Objective PUL Vital signs: Last Vital Signs Temp 97.7 F 02/16/18 04:45 Pulse 96 02/16/18 08:00 Resp 24 02/16/18 08:00 BP 135/85 02/16/18 08:00 Pulse Ox 96 02/16/18 08:00 General: Patient is in no acute distress. HEENT: Normocephalic atraumatic, pupils are equal round and reactive to light and accommodation, anicteric sclera, nares is patent, mucous membranes moist, no JVD, trachea is midline Cardiovascular: Normal sinus rhythm, S1 and S2 audible, no murmur or rubs Respiratory: Scattered rhonchi to auscultation bilaterally. No acute distress. No wheezing. Patient not using accessory muscles. Abdomen: Soft, nontender, nondistended, positive bowel sounds in all 4 quadrants Extremities: Warm, dry, trace lower extremity edema. Normal capillary refill. Neuro: Alert and oriented and follows commands. Grossly no neuro deficits. Skin: Warm to touch : No obvious abnormalities. Psych: Normal Results - Laboratory Findings CBC and BMP: 02/16/18 04:01 02/16/18 04:01 ABG ABG pH 7.47 pH Units (7.32-7.45) H 02/15/18 04:42 ABG pCO2 56 mmHg (35-45) H 02/15/18 04:42 ABG pO2 85 mmHg (85-104) 02/15/18 04:42 ABG O2 Saturation 97 % (95-98) 02/15/18 04:42 Abnormal lab findings: Abnormal lab results WBC 14.4 K/mcL (4.3-11.1) H 02/16/18 04:01 MPV 9.0 fL (9.4-12.4) L 02/16/18 04:01 Neutrophils # 13.7 K/mcL (1.6-8.9) H 02/16/18 04:01 Lymphocytes # 0.4 K/mcL (0.6-4.6) L 02/16/18 04:01 ABG pH 7.47 pH Units (7.32-7.45) H 02/15/18 04:42 ABG pCO2 56 mmHg (35-45) H 02/15/18 04:42 ABG HCO3 41 mEq/L (21-27) H 02/15/18 04:42 ABG Total CO2 42 mEq/L (20-26) H 02/15/18 04:42 ABG Base Excess 14 mEq/L (-2 to 3) H 02/15/18 04:42 VBG pH 7.27 pH Units (7.32-7.42) L 02/14/18 11:23 VBG pCO2 91 mmHg (41-51) H* 02/14/18 11:23 VBG pO2 207 mmHg (25-50) H 02/14/18 11:23 VBG HCO3 42 mEq/L (21-27) H 02/14/18 11:23 Carboxyhemoglobin 8.1 % (0-5) H 02/14/18 10:30 Sodium 128 mEq/L (136-145) L 02/16/18 04:01 Chloride 87 mEq/L (98-107) L 02/16/18 04:01 Carbon Dioxide 38 mEq/L (23-29) H 02/16/18 04:01 Glucose 150 mg/dL (70-105) H 02/16/18 04:01 POC Glucose 150 mg/dL (70-99) H 02/15/18 12:24 Calculated Osmolality 271 (280-300) L 02/16/18 04:01 Lactic Acid 0.4 mmol/L (0.5-2.2) L 02/14/18 11:44 Venous Ioniz Calcium 1.07 mmol/L (1.15-1.35) L 02/16/18 04:38 AST 12 Units/L (13-39) L 02/16/18 04:01 Serum Total Protein 5.7 g/dL (6.4-8.9) L 02/16/18 04:01 Albumin 3.3 g/dL (3.5-5.7) L 02/16/18 04:01 Urine Protein 100 mg/dL (Neg-Trace) H 02/14/18 11:39 Urine Blood Small (Negative) H 02/14/18 11:39 Urine Bilirubin Small (Negative) H 02/14/18 11:39 Urine Microscopic RBC 15-30 per hpf (0-3) H 02/14/18 11:39 Urine Microscopic WBC 5-15 per hpf (0-3) H 02/14/18 11:39 Ur Squamous Epith Cells Many per lpf (None-Few) H 02/14/18 11:39 Urine Bacteria Moderate per hpf (None-Few) H 02/14/18 11:39 Granular Casts Few per lpf (None Seen) H 02/14/18 11:39 Urine Mucus Many (Few) H 02/14/18 11:39 Urine Yeast Few per hpf (None Seen) H 02/14/18 11:39 - Microbiology Findings Microbiology Findings: Microbiology, Last 48 Hours 02/14/18 15:45 Sputum Culture - Preliminary Sputum - Clinical Findings Intake & Output: Intake & Output 02/15/18 02/16/18 02/16/18 23:59 07:59 15:59 Intake Total 700 / 700 350 / 350 Output Total 350 / 350 525 / 525 Balance 350 / 350 -175 / -175 Weight 101.1 kg Consult Discharge Plan - Plan Referrals: Dion Whitman MD [Primary Care Provider] -
[2018-02-16] MEDS: Budesonide/Formoterol 160/4.5 1 PUFF INH IH SCH ×2 (11:48→19:51)
--- NOTE | 2018-02-16 14:52 | Internal Med Progress Note ---
Hospitalist Progress Note - Encounter Date of Encounter: 02/16/18 Time of Encounter: 11:45 - Subjective Interval History: Chart reviewed. Patient with known chronic respiratory failure, COPD, ongoing tobacco use, was admitted for acute on chronic hypercarbic resting failure secondary to ?HCAP complicated by COPD exacerbation. Required brief ventilator s upport but was extubated successfully to BiPaP on 02/15. Doing well on nasal cannula currently, endorses that she has not been compliant to her torsemide as outpatient. Breathing has significantly improved although still wheezing. - Exam Vitals: Temp Pulse Resp BP Pulse Ox 97.8 F 96 27 131/84 98 02/16/18 08:00 02/16/18 12:00 02/16/18 12:00 02/16/18 12:00 02/16/18 12:00 Exam: General: Alert and oriented, not in acute distress. Morbidly obsese Cardiovascular: distant heart sound, S1S2, unable to appreciate JVD Lungs: diffuse wheezing bilaterally Abdomen:Soft, non-tender, no rigidity. Extremities:No deformity or swelling Neurological:Normal cognition and motor skills. Non-focal - Assessment and Plan (1) Acute on chronic respiratory failure with hypercapnia Current Visit: Yes Status: Acute Assessment and Plan: secondary to COPD exacerbation +/- HCAP initially required intubation but successfully extubated to BiPAP on 02/15.. Currently on nasal cannula. continue vanc/zosyn, steroids, bronchodilators will give 1 dose of lasix 40mg as her BP can tolerate will taper steroids from tomorrow if she continues to improve RIP Smoking cessation emphasized sputum culture pending (2) COPD exacerbation Current Visit: Yes Status: Acute Assessment and Plan: as above (3) Pneumonia Current Visit: No Status: Acute Assessment and Plan: as above (4) Tobacco abuse Current Visit: Yes Status: Chronic Assessment and Plan: smoking cessation emphasized NRT (5) CAD (coronary artery disease) Current Visit: No Status: Chronic Assessment and Plan: Resume aspirin, statin, and beta brenda. DVT Prophylaxis: Subcutaneous heparin - Time Spent with Patient Total time spent is greater than 50% in coordination of care (as documented) at patient's floor/unit and/or counseling patient: Plan of Care Discussed with: patient Internal Medicine: Result - Labs CBC & Chem 7: 02/16/18 04:01 02/16/18 04:01 Labs: Short CBC 02/16/18 Range/Units 04:01 WBC 14.4 H (4.3-11.1) K/mcL Hgb 11.6 (11.5-15.4) g/dL Hct 35.7 (35.3-44.9) % Plt Count 259 (140-400) K/mcL Neutrophils # 13.7 H (1.6-8.9) K/mcL BMP 02/16/18 04:01 Sodium 128 L Potassium 4.4 Chloride 87 L Carbon Dioxide 38 H BUN 18 Creatinine 0.69 Glucose 150 H Calcium 8.7 Liver Function 02/16/18 Range/Units 04:01 Total Bilirubin 0.3 (0.3-1.0) mg/dL AST 12 L (13-39) Units/L ALT 14 (7-52) Units/L Alkaline Phosphatase 72 (34-104) Units/L Albumin 3.3 L (3.5-5.7) g/dL - ABG Interpretation ABG results: ABG ABG pH 7.47 pH Units (7.32-7.45) H 02/15/18 04:42 ABG pCO2 56 mmHg (35-45) H 02/15/18 04:42 ABG pO2 85 mmHg (85-104) 02/15/18 04:42 ABG O2 Saturation 97 % (95-98) 02/15/18 04:42 Consult Discharge Plan - Plan Referrals: Dion Whitman MD [Primary Care Provider] - (3) Pneumonia Qualifiers: Pneumonia type: due to Haemophilus influenzae Laterality: unspecified laterality Lung location: unspecified part of lung Qualified Code(s): J14 - Pneumonia due to Hemophilus influenzae (5) CAD (coronary artery disease) Qualifiers: Coronary Disease-Associated Artery/Lesion type: [place] artery [place] vs. transplanted heart: [place] heart Associated angina: without angina Qualified Code(s): I25.10 - Atherosclerotic heart disease of [place] coronary artery without angina pectoris
[2018-02-16] MEDS: Nystatin POWDER 30 GM BOTTLE TP SCH ×2 (16:46→21:20)
[2018-02-16] MEDS ORDERED: NON-FORMULARY MEDICATION 1 EACH EACH (Fluticasone/Salmeterol [Advair 500-50 Diskus] 1 PUFF IH SCH (21:00)
[2018-02-16 22:47] LABS: Adenovirus Not Detected (Not Detect); Coronavirus 229E Not Detected (Not Detect); Coronavirus HKU1 Not Detected (Not Detect); Coronavirus NL63 Not Detected (Not Detect); Coronavirus OC43 Not Detected (Not Detect); Human Metapneumovirus Not Detected (Not Detect); Human Rhinovirus/Enterovirus Not Detected (Not Detect); Influenza A Subtype 2009 H1 Not Detected (Not Detect)
[2018-02-16 22:48] LABS: Bordetella Pertussis Not Detected (Not Detect); Chlamydophila pneumoniae Not Detected (Not Detect); Influenza A Untypeable Not Detected (Not Detect); Influenza B Not Detected (Not Detect); Mycoplasma pneumoniae Not Detected (Not Detect); Parainfluenza Virus 1 Not Detected (Not Detect); Parainfluenza Virus 2 Not Detected (Not Detect); Parainfluenza Virus 3 Not Detected (Not Detect); Parainfluenza Virus 4 Not Detected (Not Detect); Respiratory Syncytial Virus Not Detected (Not Detect)
[2018-02-17] MEDS: methylPREDNISolone 125 MG/2 ML VIAL IVP SCH (00:58)
[2018-02-17] MEDS: Ipratropium/Albuterol Neb 3 ML IH SCH ×5 (03:44→20:09)
[2018-02-17 05:12] LABS: Basophils % 0.1 %; Eosinophils # 0.1 K/mcL (0.0-0.6); Eosinophils % 0.6 %; Hematocrit 35.6 % (35.3-44.9); Hemoglobin 11.6 g/dL (11.5-15.4); Immature Granulocytes % 0.4 % (0-4); Lymphocytes # 0.3 K/mcL (0.6-4.6); Lymphocytes % 2.9 %; Mean Corpuscular HGB Conc 32.6 g/dL (31.6-35.5); Mean Corpuscular Hemoglobin 30.8 pg (28.0-33.3); Mean Corpuscular Volume 94.4 fL (83.0-100.0); Mean Platelet Volume 8.8 fL (9.4-12.4); Monocytes # 0.2 K/mcL (0.0-1.3); Monocytes % 1.8 %; Neutrophils # 10.5 K/mcL (1.6-8.9); Platelet Count 246 K/mcL (140-400); Red Blood Count 3.77 M/mcL (3.82-4.97); Red Cell Distribution Width 14.2 % (11.5-14.5); Segmented Neutrophils % 94.2 %
[2018-02-17 05:37] LABS: BUN/Creatinine Ratio 31 (6-26); Blood Urea Nitrogen 22 mg/dL (8-23); Calcium 8.7 mg/dL (8.6-10.3); Carbon Dioxide 41 mEq/L (23-29); Chloride 88 mEq/L (98-107); Glucose 160 mg/dL (70-105); Osmolality,Calculated 281 (280-300); Potassium 4.4 mEq/L (3.5-5.1); Sodium 132 mEq/L (136-145); eGFR For Non-African Americans > 60 (> 60)
[2018-02-17] MEDS: Piperacillin/Tazobactam 3.375 GM in 0.9 % Sodium Chloride Mini Bag 100 ML IVPB SCH (05:37)
[2018-02-17] MEDS: *HR* Heparin 5,000 UNIT/ML VIAL SQ SCH ×2 (05:37→18:40)
[2018-02-17] MEDS: Budesonide/Formoterol 160/4.5 1 PUFF INH IH SCH ×2 (07:28→20:09)
[2018-02-17] MEDS: Metoprolol XL (24 HR) Succ 50 MG TAB.ER.24H PO SCH (08:12)
[2018-02-17] MEDS: Aspirin 81 MG TAB.CHEW PO SCH (08:12)
[2018-02-17] MEDS: Nystatin POWDER 30 GM BOTTLE TP SCH ×2 (08:13→21:50)
[2018-02-17] MEDS: Cholecalciferol (D-3) 1,000 UNIT TABLET PO SCH (08:13)
[2018-02-17] MEDS: Nicotine 21 MG PATCH.TD24 TD SCH (08:13)
--- NOTE | 2018-02-17 08:53 | Electrocardiograph Report ---
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
--- NOTE | 2018-02-17 08:55 | Electrocardiograph Report ---
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
[2018-02-17] MEDS: Levofloxacin 750 MG/150 ML 750 MG/150 ML BAG IVPB SCH (10:48)
[2018-02-17] MEDS: MethylPREDNISolone 40 MG/ML VIAL IVP SCH ×2 (10:51→21:50)
--- NOTE | 2018-02-17 11:47 | Internal Med Progress Note ---
Hospitalist Progress Note - Encounter Date of Encounter: 02/17/18 Time of Encounter: 09:30 - Subjective Interval History: Breathing has improved although not close to her baseline. Wheezes slightly. No fever/chills, chest pain. - Exam Vitals: Temp Pulse Resp BP Pulse Ox 97.8 F 85 16 145/82 93 02/17/18 11:26 02/17/18 11:26 02/17/18 11:29 02/17/18 11:26 02/17/18 11:29 Exam: General: Alert and oriented, not in acute distress. Morbidly obese Cardiovascular: distant heart sound, S1S2, unable to appreciate JVD Lungs: diffuse wheezing bilaterally but less prominent Abdomen:Soft, non-tender, no rigidity. Extremities:No deformity or swelling Neurological:Normal cognition and motor skills. Non-focal - Assessment and Plan (1) Acute on chronic respiratory failure with hypercapnia Current Visit: Yes Status: Acute Assessment and Plan: secondary to COPD exacerbation +/- HCAP RIP -ve initially required intubation but successfully extubated to BiPAP on 02/15. Currently on nasal cannula. On D4 vanc/zosyn, will switch to levaquin and complete for another 7 day taper steroids, continue bronchodilators monitor off lasix today Smoking cessation emphasized sputum culture normal respi chelo (2) COPD exacerbation Current Visit: Yes Status: Acute Assessment and Plan: as above (3) Pneumonia Current Visit: No Status: Acute Assessment and Plan: as above (4) Tobacco abuse Current Visit: Yes Status: Chronic Assessment and Plan: smoking cessation emphasized NRT (5) CAD (coronary artery disease) Current Visit: No Status: Chronic Assessment and Plan: Resume aspirin, statin, and beta brenda. DVT Prophylaxis: Subcutaneous heparin - Time Spent with Patient Total time spent is greater than 50% in coordination of care (as documented) at patient's floor/unit and/or counseling patient: Plan of Care Discussed with: patient Internal Medicine: Result - Labs CBC & Chem 7: 02/17/18 05:02 02/17/18 05:02 Labs: Short CBC 02/17/18 Range/Units 05:02 WBC 11.2 H (4.3-11.1) K/mcL Hgb 11.6 (11.5-15.4) g/dL Hct 35.6 (35.3-44.9) % Plt Count 246 (140-400) K/mcL Neutrophils # 10.5 H (1.6-8.9) K/mcL BMP 02/17/18 05:02 Sodium 132 L Potassium 4.4 Chloride 88 L Carbon Dioxide 41 H* BUN 22 Creatinine 0.71 Glucose 160 H Calcium 8.7 - ABG Interpretation ABG results: ABG ABG pH 7.47 pH Units (7.32-7.45) H 02/15/18 04:42 ABG pCO2 56 mmHg (35-45) H 02/15/18 04:42 ABG pO2 85 mmHg (85-104) 02/15/18 04:42 ABG O2 Saturation 97 % (95-98) 02/15/18 04:42 Consult Discharge Plan - Plan Referrals: Dion Whitman MD [Primary Care Provider] - ___ (3) Pneumonia Qualifiers: Pneumonia type: due to Haemophilus influenzae Laterality: unspecified laterality Lung location: unspecified part of lung Qualified Code(s): J14 - Pneumonia due to Hemophilus influenzae (5) CAD (coronary artery disease) Qualifiers: Coronary Disease-Associated Artery/Lesion type: [place] artery [place] vs. transplanted heart: [place] heart Associated angina: without angina Qualified Code(s): I25.10 - Atherosclerotic heart disease of [place] coronary artery without angina pectoris
[2018-02-17] MEDS ORDERED: Acetaminophen 325 MG TABLET PO PRN (11:55)
[2018-02-17] MEDS ORDERED: Saline Nasal Spray 44 ML BOTTLE NS PRN (21:59)
[2018-02-18] MEDS: Ipratropium/Albuterol Neb 3 ML IH SCH ×6 (00:18→20:31)
[2018-02-18 06:05] LABS: Basophils % 0.1 %; Hematocrit 40.9 % (35.3-44.9); Hemoglobin 12.7 g/dL (11.5-15.4); Lymphocytes # 0.7 K/mcL (0.6-4.6); Lymphocytes % 7.6 %; Mean Corpuscular HGB Conc 31.1 g/dL (31.6-35.5); Mean Corpuscular Hemoglobin 30.2 pg (28.0-33.3); Mean Corpuscular Volume 97.1 fL (83.0-100.0); Mean Platelet Volume 9.1 fL (9.4-12.4); Monocytes # 0.4 K/mcL (0.0-1.3); Monocytes % 4.1 %; Neutrophils # 8.2 K/mcL (1.6-8.9); Platelet Count 288 K/mcL (140-400); Red Blood Count 4.21 M/mcL (3.82-4.97); Red Cell Distribution Width 13.9 % (11.5-14.5); Segmented Neutrophils % 87.2 %
[2018-02-18 06:30] LABS: BUN/Creatinine Ratio 39 (6-26); Blood Urea Nitrogen 22 mg/dL (8-23); Calcium 9.2 mg/dL (8.6-10.3); Carbon Dioxide 40 mEq/L (23-29); Chloride 89 mEq/L (98-107); Glucose 118 mg/dL (70-105); Osmolality,Calculated 278 (280-300); Potassium 4.7 mEq/L (3.5-5.1); Sodium 132 mEq/L (136-145); eGFR For Non-African Americans > 60 (> 60)
[2018-02-18] MEDS: *HR* Heparin 5,000 UNIT/ML VIAL SQ SCH ×2 (07:02→18:48)
[2018-02-18] MEDS: Budesonide/Formoterol 160/4.5 1 PUFF INH IH SCH ×2 (07:34→20:31)
[2018-02-18] MEDS: Aspirin 81 MG TAB.CHEW PO SCH (08:28)
[2018-02-18] MEDS: Metoprolol XL (24 HR) Succ 50 MG TAB.ER.24H PO SCH (08:28)
[2018-02-18] MEDS: Cholecalciferol (D-3) 1,000 UNIT TABLET PO SCH (08:28)
[2018-02-18] MEDS: Levofloxacin 750 MG/150 ML 750 MG/150 ML BAG IVPB SCH (08:29)
[2018-02-18] MEDS: MethylPREDNISolone 40 MG/ML VIAL IVP SCH ×2 (08:29→21:08)
[2018-02-18] MEDS: Nicotine 21 MG PATCH.TD24 TD SCH (08:29)
[2018-02-18] MEDS: Nystatin POWDER 30 GM BOTTLE TP SCH ×2 (08:29→21:08)
--- NOTE | 2018-02-18 09:43 | Palliative Progress Note ---
Date of Encounter: 02/18/18 Time of Encounter: 09:00 - Assessment and plan (1) Weakness Current Visit: Yes Status: Acute Assessment and plan: PT/OT consult appreciated. Recommend home with Home Health PT/OT. (2) SANJUANA (obstructive sleep apnea) Current Visit: No Status: Chronic (3) Patellar fracture Current Visit: No Status: Acute Qualifiers: Encounter type: initial encounter Fracture type: closed Fracture morphology: comminuted Fracture alignment: nondisplaced Laterality: right Qualified Code(s): S82.044A - Nondisplaced comminuted fracture of right patella, initial encounter for closed fracture (4) COPD (chronic obstructive pulmonary disease) Current Visit: No Status: Chronic Assessment and plan: Patient reports she is almost back to baseline. Oxygen saturation 98% on 4L. Qualifiers: COPD type: unspecified COPD Qualified Code(s): J44.9 - Chronic obstructive pulmonary disease, unspecified (5) Pulmonary edema Current Visit: Yes Status: Acute Qualifiers: Chronicity: chronic Qualified Code(s): J81.1 - Chronic pulmonary edema (6) Goals of care, counseling/discussion Current Visit: Yes Status: Acute Assessment and plan: Met with patient regarding discharge planning and shared recommendations from OT. Patient agreeable to [facility] with PT/OT. Expressed initial concern over having nursing in home, educated on services [facility] may provide. Educated on disease process; verbalized understanding. Educated on need for daily weight for CHF and calling PCP for weight changes greater than 0.5 pound in a day and 2 pounds in a week, verbalized understanding. Explained HH may be able to keep in contact with PCP regarding COPD/CHF, including labs; patient agreeable. Referral Called to Chelsey at [facility] for PT/OT/Nursing for CHF/COPD. Requested Dr. Carolina write orders at time of discharge, agreeable. Patient expressed fear/depression regarding ; explained chronic illness that may result in her , but also expressed ways to control symptoms. Encouraged patient to follow treatment plan, but also consider counseling or discussing with a close trusted friend; verbalized agreement. Patient desires to quit smoking; educated on [employer] for [place], requested information be given via Case Management. Patient denies further needs at this time. Palliative care to sign off, please re-consult if needed. Case Management/Nursing will need to notify [facility] at time of discharge. - Time Spent With Patient Total time spent is greater than 50% in coordination of care (as documented) at patient's floor/unit and/or counseling patient: - Subjective Interval history: Patient sitting up at bedside upon arrival for assessment. Reports feeling much better today than Sunday. Patient is alert and oriented times 3. No family present at bedside. Denies pain, shortness of breath, nausea, and vomiting. Patient reports chronic anxiety, had not required Xanax in the last 24 hours. - Constitutional Vitals: Abnormal lab results MCHC 31.1 g/dL (31.6-35.5) L 02/18/18 05:05 MPV 9.1 fL (9.4-12.4) L 02/18/18 05:05 ABG pH 7.47 pH Units (7.32-7.45) H 02/15/18 04:42 ABG pCO2 56 mmHg (35-45) H 02/15/18 04:42 ABG HCO3 41 mEq/L (21-27) H 02/15/18 04:42 ABG Total CO2 42 mEq/L (20-26) H 02/15/18 04:42 ABG Base Excess 14 mEq/L (-2 to 3) H 02/15/18 04:42 VBG pH 7.27 pH Units (7.32-7.42) L 02/14/18 11:23 VBG pCO2 91 mmHg (41-51) H* 02/14/18 11:23 VBG pO2 207 mmHg (25-50) H 02/14/18 11:23 VBG HCO3 42 mEq/L (21-27) H 02/14/18 11:23 Carboxyhemoglobin 8.1 % (0-5) H 02/14/18 10:30 Sodium 132 mEq/L (136-145) L 02/18/18 05:05 Chloride 89 mEq/L (98-107) L 02/18/18 05:05 Carbon Dioxide 40 mEq/L (23-29) H* 02/18/18 05:05 Creatinine 0.56 mg/dL (0.60-1.20) L 02/18/18 05:05 BUN/Creatinine Ratio 39 (6-26) H 02/18/18 05:05 Glucose 118 mg/dL (70-105) H 02/18/18 05:05 POC Glucose 189 mg/dL (70-99) H 02/16/18 12:39 Calculated Osmolality 278 (280-300) L 02/18/18 05:05 Lactic Acid 0.4 mmol/L (0.5-2.2) L 02/14/18 11:44 Venous Ioniz Calcium 1.07 mmol/L (1.15-1.35) L 02/16/18 04:38 AST 12 Units/L (13-39) L 02/16/18 04:01 Serum Total Protein 5.7 g/dL (6.4-8.9) L 02/16/18 04:01 Albumin 3.3 g/dL (3.5-5.7) L 02/16/18 04:01 Urine Protein 100 mg/dL (Neg-Trace) H 02/14/18 11:39 Urine Blood Small (Negative) H 02/14/18 11:39 Urine Bilirubin Small (Negative) H 02/14/18 11:39 Urine Microscopic RBC 15-30 per hpf (0-3) H 02/14/18 11:39 Urine Microscopic WBC 5-15 per hpf (0-3) H 02/14/18 11:39 Ur Squamous Epith Cells Many per lpf (None-Few) H 02/14/18 11:39 Urine Bacteria Moderate per hpf (None-Few) H 02/14/18 11:39 Granular Casts Few per lpf (None Seen) H 02/14/18 11:39 Urine Mucus Many (Few) H 02/14/18 11:39 Urine Yeast Few per hpf (None Seen) H 02/14/18 11:39 Vancomycin Trough 17 mcg/mL (5-10) H 02/16/18 11:58 General appearance: Present: cooperative, morbidly obese, no acute distress - Head Head exam: Present: atraumatic, normal inspection - Eye Eye exam: Present: EOMI, normal appearance, PERRL. Absent: periorbital swelling, periorbital tenderness Pupils: Present: normal accommodation, PERRL - ENT ENT exam: Present: mucous membranes moist, normal external ear exam - Neck Neck exam: Present: full ROM, normal inspection - Respiratory Respiratory exam: Present: wheezes. Absent: accessory muscle use, respiratory distress - Cardiovascular Cardiovascular exam: Present: +S1, +S2 - GI/Abdominal GI/Abdominal exam: Present: hypoactive bowel sounds, soft. Absent: tenderness - Rectal Rectal exam: Present: deferred - Extremities Exam Extremities exam: Absent: full ROM (limitation in movement of shoulder and knee d/t fractures. Patient refusing operation on left shoulder. Patient open to idea of surgery on knee; however, has been unable to proceed with surgery due to cardiac and respiratory problems.) - Back Exam Back exam: Present: full ROM, normal inspection - Neurological Exam Neurological exam: Present: alert, oriented X3, strengths equal and symetr throughout. Absent: altered - Psychiatric Psychiatric exam: Present: normal affect, normal mood - Skin Skin exam: Present: intact, warm Palliative Quality Palliative Quality: Screen for Code Status: Yes, Screen for Goals of Care: Yes, Screen for Pain: Yes, If Pain Regimen Started, Initiate Bowel Regimen: NA, Screen for Nausea/Vomitting: Yes Code Status: 02/14/18 13:41 Resuscitation Status: Active [RES] Routine Comment: Resuscitation Status: Full Code - Labs CBC & Chem 7: 02/18/18 05:05 02/18/18 05:05 Labs: Laboratory Results - last 24 hr 02/18/18 02/18/18 05:05 05:05 WBC 9.4 RBC 4.21 Hgb 12.7 Hct 40.9 MCV 97.1 MCH 30.2 MCHC 31.1 L RDW 13.9 Plt Count 288 MPV 9.1 L Immature Gran % 1.0 Seg Neutrophils % 87.2 Lymphocytes % 7.6 Monocytes % 4.1 Eosinophils % 0.0 Basophils % 0.1 Neutrophils # 8.2 Lymphocytes # 0.7 Monocytes # 0.4 Eosinophils # 0.0 Basophils # 0.0 Sodium 132 L Potassium 4.7 Chloride 89 L Carbon Dioxide 40 H* BUN 22 Creatinine 0.56 L Est GFR ( Amer) > 60 Est GFR (Non-Af Amer) > 60 BUN/Creatinine Ratio 39 H Glucose 118 H Calculated Osmolality 278 L Calcium 9.2 - ABG Interpretation ABG results: ABG ABG pH 7.47 pH Units (7.32-7.45) H 02/15/18 04:42 ABG pCO2 56 mmHg (35-45) H 02/15/18 04:42 ABG pO2 85 mmHg (85-104) 02/15/18 04:42 ABG O2 Saturation 97 % (95-98) 02/15/18 04:42 Palliative Scale - Palliative Performance Scale How ambulatory is this patient?: Mainly sit / lie What is patient's level of activity and evidence of disease?: Unable normal job/work, Significant disease How much self-care assistance does patient require?: Occasional assistance necessary How much oral intake does the patient have?: Normal What is this patient's level of consciousness?: Full Palliative Performance Score: 60 % Consult Discharge Plan - Plan Referrals: Dion Whitman MD [Primary Care Provider] -
--- NOTE | 2018-02-18 12:07 | Internal Med Progress Note ---
Hospitalist Progress Note - Encounter Date of Encounter: 02/18/18 Time of Encounter: 09:30 - Subjective Interval History: States that she feels much better but cough and wheezes continues. Would like to spit out the phlegm but unable to do so. No fever/chills, chest pain. - Exam Vitals: Temp Pulse Resp BP Pulse Ox 98.7 F 81 16 156/95 95 02/18/18 11:19 02/18/18 11:19 02/18/18 11:46 02/18/18 11:46 02/18/18 11:46 Exam: General: Alert and oriented, not in acute distress. Morbidly obese Cardiovascular: distant heart sound, S1S2, unable to appreciate JVD Lungs: bilateral wheezing but improved air entry Abdomen:Soft, non-tender, no rigidity. Extremities:No deformity or swelling Neurological:Normal cognition and motor skills. Non-focal - Assessment and Plan (1) Acute on chronic respiratory failure with hypercapnia Current Visit: Yes Status: Acute Assessment and Plan: secondary to COPD exacerbation +/- HCAP RIP -ve initially required intubation but successfully extubated to BiPAP on 02/15. Currently on nasal cannula. s/p D4 vanc/zosyn, now on D2 levaquin, will complete a week course taper steroids, will likely transition to PO 40mg tomorrow continue bronchodilators continue to monitor off lasix for now Smoking cessation emphasized sputum culture normal respi chelo (2) COPD exacerbation Current Visit: Yes Status: Acute Assessment and Plan: as above (3) Pneumonia Current Visit: No Status: Acute Assessment and Plan: as above (4) Tobacco abuse Current Visit: Yes Status: Chronic Assessment and Plan: smoking cessation emphasized NRT (5) CAD (coronary artery disease) Current Visit: No Status: Chronic Assessment and Plan: Resume aspirin, statin, and beta brenda. DVT Prophylaxis: Subcutaneous heparin - Time Spent with Patient Total time spent is greater than 50% in coordination of care (as documented) at patient's floor/unit and/or counseling patient: Plan of Care Discussed with: patient Internal Medicine: Result - Labs CBC & Chem 7: 02/18/18 05:05 02/18/18 05:05 Labs: Short CBC 02/18/18 Range/Units 05:05 WBC 9.4 (4.3-11.1) K/mcL Hgb 12.7 (11.5-15.4) g/dL Hct 40.9 (35.3-44.9) % Plt Count 288 (140-400) K/mcL Neutrophils # 8.2 (1.6-8.9) K/mcL BMP 02/18/18 05:05 Sodium 132 L Potassium 4.7 Chloride 89 L Carbon Dioxide 40 H* BUN 22 Creatinine 0.56 L Glucose 118 H Calcium 9.2 - ABG Interpretation ABG results: ABG ABG pH 7.47 pH Units (7.32-7.45) H 02/15/18 04:42 ABG pCO2 56 mmHg (35-45) H 02/15/18 04:42 ABG pO2 85 mmHg (85-104) 02/15/18 04:42 ABG O2 Saturation 97 % (95-98) 02/15/18 04:42 Consult Discharge Plan - Plan Referrals: Dion Whitman MD [Primary Care Provider] - (3) Pneumonia Qualifiers: Pneumonia type: due to Haemophilus influenzae Laterality: unspecified laterality Lung location: unspecified part of lung Qualified Code(s): J14 - Pneumonia due to Hemophilus influenzae (5) CAD (coronary artery disease) Qualifiers: Coronary Disease-Associated Artery/Lesion type: [place] artery [place] vs. transplanted heart: [place] heart Associated angina: without angina Qualified Code(s): I25.10 - Atherosclerotic heart disease of [place] coronary artery without angina pectoris
[2018-02-19] MEDS: Ipratropium/Albuterol Neb 3 ML IH SCH ×7 (00:45→23:16)
[2018-02-19] MEDS: *HR* Heparin 5,000 UNIT/ML VIAL SQ SCH ×2 (05:15→17:34)
[2018-02-19] MEDS: Budesonide/Formoterol 160/4.5 1 PUFF INH IH SCH ×2 (07:25→19:54)
[2018-02-19] MEDS: Cholecalciferol (D-3) 1,000 UNIT TABLET PO SCH (10:11)
[2018-02-19] MEDS: Metoprolol XL (24 HR) Succ 50 MG TAB.ER.24H PO SCH (10:11)
[2018-02-19] MEDS: Aspirin 81 MG TAB.CHEW PO SCH (10:11)
[2018-02-19] MEDS: Nystatin POWDER 30 GM BOTTLE TP SCH ×2 (10:12→20:13)
[2018-02-19] MEDS: MethylPREDNISolone 40 MG/ML VIAL IVP SCH ×2 (10:12→20:13)
[2018-02-19] MEDS: Nicotine 21 MG PATCH.TD24 TD SCH (10:12)
[2018-02-19] MEDS: Levofloxacin 750 MG/150 ML 750 MG/150 ML BAG IVPB SCH (10:12)
--- NOTE | 2018-02-19 12:18 | Internal Med Progress Note ---
Hospitalist Progress Note - Encounter Date of Encounter: 02/19/18 Time of Encounter: 09:50 - Subjective Interval History: She was doing ok until the afternoon when she again felt SOB and requiring frequent breathing tx. Cough is slightly better this morning and she thinks she can participate in PT a bit more today. No fever/chills, chest pain. - Exam Vitals: Temp Pulse Resp BP Pulse Ox 98.2 F 89 16 171/95 97 02/19/18 06:55 02/19/18 06:55 02/19/18 11:11 02/19/18 06:55 02/19/18 11:11 Exam: General: Alert and oriented, not in acute distress. Morbidly obese Cardiovascular: distant heart sound, S1S2, unable to appreciate JVD Lungs: bilateral wheezing with fair air entry Abdomen:Soft, non-tender, no rigidity. Extremities:No deformity or swelling Neurological:Normal cognition and motor skills. Non-focal - Assessment and Plan (1) Acute on chronic respiratory failure with hypercapnia Current Visit: Yes Status: Acute Assessment and Plan: secondary to COPD exacerbation +/- HCAP RIP -ve initially required intubation but successfully extubated to BiPAP on 02/15. Currently on nasal cannula. s/p D4 vanc/zosyn, now on D3 levaquin, will complete a week course taper steroids, will continue IV today and transition to PO 40mg tomorrow continue bronchodilators continue to monitor off lasix for now Smoking cessation emphasized sputum culture normal respi chelo 6 minute walk test to determine the amount of O2 she needs with ambulation as it appears that she is desaturating with PT (2) COPD exacerbation Current Visit: Yes Status: Acute Assessment and Plan: as above (3) Pneumonia Current Visit: No Status: Acute Assessment and Plan: as above (4) Tobacco abuse Current Visit: Yes Status: Chronic Assessment and Plan: smoking cessation emphasized NRT (5) CAD (coronary artery disease) Current Visit: No Status: Chronic Assessment and Plan: Resume aspirin, statin, and beta brenda. DVT Prophylaxis: Subcutaneous heparin - Time Spent with Patient Total time spent is greater than 50% in coordination of care (as documented) at patient's floor/unit and/or counseling patient: Plan of Care Discussed with: patient Internal Medicine: Result - Labs CBC & Chem 7: 02/18/18 05:05 02/18/18 05:05 - ABG Interpretation ABG results: ABG ABG pH 7.47 pH Units (7.32-7.45) H 02/15/18 04:42 ABG pCO2 56 mmHg (35-45) H 02/15/18 04:42 ABG pO2 85 mmHg (85-104) 02/15/18 04:42 ABG O2 Saturation 97 % (95-98) 02/15/18 04:42 Consult Discharge Plan - Plan Referrals: Dion Whitman MD [Primary Care Provider] - (3) Pneumonia Qualifiers: Pneumonia type: due to Haemophilus influenzae Laterality: unspecified laterality Lung location: unspecified part of lung Qualified Code(s): J14 - Pneumonia due to Hemophilus influenzae (5) CAD (coronary artery disease) Qualifiers: Coronary Disease-Associated Artery/Lesion type: [place] artery [place] vs. transplanted heart: [place] heart Associated angina: without angina Qualified Code(s): I25.10 - Atherosclerotic heart disease of [place] coronary artery without angina pectoris
[2018-02-19] MEDS ORDERED: amLODIPine 5 MG TABLET PO SCH (13:00)
[2018-02-19] MEDS: ALPRAZolam 0.5 MG TABLET PO PRN (15:35)
[2018-02-20] MEDS: Ipratropium/Albuterol Neb 3 ML IH SCH ×3 (03:31→11:37)
[2018-02-20 05:13] LABS: Basophils % 0.2 %; Hematocrit 39.8 % (35.3-44.9); Hemoglobin 12.5 g/dL (11.5-15.4); Immature Granulocytes % 1.3 % (0-4); Lymphocytes # 0.7 K/mcL (0.6-4.6); Mean Corpuscular HGB Conc 31.4 g/dL (31.6-35.5); Mean Corpuscular Hemoglobin 30.1 pg (28.0-33.3); Mean Corpuscular Volume 95.9 fL (83.0-100.0); Mean Platelet Volume 8.9 fL (9.4-12.4); Monocytes # 0.3 K/mcL (0.0-1.3); Monocytes % 3.4 %; Platelet Count 300 K/mcL (140-400); Red Blood Count 4.15 M/mcL (3.82-4.97); Red Cell Distribution Width 13.6 % (11.5-14.5); Segmented Neutrophils % 87.1 %
[2018-02-20 05:42] LABS: BUN/Creatinine Ratio 30 (6-26); Blood Urea Nitrogen 19 mg/dL (8-23); Calcium 9.3 mg/dL (8.6-10.3); Carbon Dioxide 41 mEq/L (23-29); Chloride 86 mEq/L (98-107); Glucose 158 mg/dL (70-105); Magnesium 1.8 mg/dL (1.6-2.6); Osmolality,Calculated 280 (280-300); Potassium 4.7 mEq/L (3.5-5.1); Sodium 132 mEq/L (136-145); eGFR For Non-African Americans > 60 (> 60)
[2018-02-20] MEDS ORDERED: *HR* LORazepam 2 MG/ML VIAL IVP ONE (05:51)
[2018-02-20] MEDS: *HR* Heparin 5,000 UNIT/ML VIAL SQ SCH (05:53)
[2018-02-20] MEDS: ALPRAZolam 0.5 MG TABLET PO PRN (05:58)
[2018-02-20 06:54] VITALS: BP 155/87
[2018-02-20] MEDS: Budesonide/Formoterol 160/4.5 1 PUFF INH IH SCH (07:45)
[2018-02-20] MEDS: MethylPREDNISolone 40 MG/ML VIAL IVP SCH (08:30)
[2018-02-20] MEDS: Metoprolol XL (24 HR) Succ 50 MG TAB.ER.24H PO SCH (08:31)
[2018-02-20] MEDS: Cholecalciferol (D-3) 1,000 UNIT TABLET PO SCH (08:31)
[2018-02-20] MEDS: Nicotine 21 MG PATCH.TD24 TD SCH (08:31)
[2018-02-20] MEDS: Nystatin POWDER 30 GM BOTTLE TP SCH (08:31)
[2018-02-20] MEDS: Aspirin 81 MG TAB.CHEW PO SCH (08:31)
[2018-02-20] MEDS ORDERED: levoFLOXacin 750 MG TABLET PO SCH (09:00)
[2018-02-20] MEDS ORDERED: Losartan/HCTZ 50-12.5 TABLET PO SCH (09:00)
--- NOTE | 2018-02-20 10:10 | Discharge Summary ---
- NOTES TO OUTPATIENT PROVIDER Notes to Outpatient Provider: Admitted for acute on chronic hypercarbic respiratory failure secondary to HCAP complicated by COPD exacerbation. Required brief ventilator support but was extubated successfully to BiPaP on 02/15. Was treated initially with IV Vanc/zosyn which was switched to Levaquin for 4 days. She will complete 3 more days of Levaquin for a total 14 days of antibiotics. Received 7 days of IV solumedrol as inpatient and will be tapered over a week. Advise to take diuretic at least every other day. Smoking cessation emphasized throughout her stay. Date of Encounter: 02/20/18 Time of Encounter: 07:50 - Discharge Diagnosis (1) Acute on chronic respiratory failure with hypercapnia Priority: Primary Status: Acute (2) COPD exacerbation Priority: Secondary Status: Acute (3) Pneumonia Priority: Secondary Status: Acute Qualifiers: Pneumonia type: due to Haemophilus influenzae Laterality: unspecified laterality Lung location: unspecified part of lung Qualified Code(s): J14 - Pneumonia due to Hemophilus influenzae (4) Tobacco abuse Priority: Secondary Status: Chronic (5) CAD (coronary artery disease) Priority: Secondary Status: Chronic Qualifiers: Coronary Disease-Associated Artery/Lesion type: [place] artery [place] vs. transplanted heart: [place] heart Associated angina: without angina Qualified Code(s): I25.10 - Atherosclerotic heart disease of [place] coronary artery without angina pectoris Hospital course: Ms. Cook is a 67 year old female with past history of oxygen dependent COPD and ongoing tobacco use was admitted for acute on chronic hypercarbic respiratory failure secondary to HCAP complicated by COPD exacerbation. Required brief ventilator support but was extubated successfully to BiPaP on 02/15. Was treated initially with IV Vanc/zosyn which was switched to Levaquin for 4 days. She will complete 3 more days of Levaquin for a total 14 days of antibiotics. Received 7 days of IV solumedrol as inpatient and will be tapered over a week. Advise to take diuretic at least every other day. Smoking cessation emphasized throughout her stay. Discharge discussed with: patient, nurse, case management - Time Spent with Patient Total time spent providing and/or coordinating discharge services: 33 mins - Discharge Medications Prescriptions: GuaiFENesin ER [Mucinex] 600 mg PO BID PRN #60 tbbp.12hr PRN Reason: Congestion levoFLOXacin [Levaquin] 750 mg PO DAILY 3 Days #3 tablet predniSONE [PredniSONE] 40 mg PO DAILY #10 tablet Torsemide [Demadex] 10 mg PO Q48H #30 tablet Home Medications: Ipratropium/Albuterol Neb [Duoneb] 3 ml IH QID PRN 08/12/15 [History] Omeprazole [PriLOSEC] 20 mg PO DAILY 08/12/15 [History] Aspirin 81 mg PO DAILY tab.chew 04/06/16 [Rx] Atorvastatin [Lipitor] 40 mg PO HS 01/26/17 [History] Metoprolol Succinate 100 mg PO DAILY 01/26/17 [History] Theophylline Anhydrous [Theophylline] 200 mg PO DAILY 04/25/17 [History] Tiotropium [Spiriva] 18 mcg IH DAILY 04/25/17 [History] ALPRAZolam [Xanax 0.5 MG Tablet] 0.25 - 0.5 mg PO BID PRN 11/13/17 [History] Cholecalciferol (D-3) [Vitamin D] 5,000 unit PO DAILY 11/13/17 [History] Fluticasone/Salmeterol [Advair 500-50 Diskus] 1 puff IH BID 11/13/17 [History] Losartan/Hydrochlorothiazide [Hyzaar 100-25 Tablet] 1 tab PO DAILY 11/13/17 [History] Albuterol Sulfate [Albuterol Inhaler] 2 puff IH Q6H PRN 02/14/18 [History] Alendronate Sodium 70 mg PO QWEEK 02/14/18 [History] Escitalopram [Lexapro] 20 mg PO DAILY 02/14/18 [History] Albuterol Neb [Proventil Neb] 2.5 mg IH Q4HR PRN 02/15/18 [History] Roflumilast [Daliresp] 500 mg PO DAILY 02/15/18 [History] GuaiFENesin ER [Mucinex] 600 mg PO BID PRN #60 tbbp.12hr 02/20/18 [Rx] Torsemide [Demadex] 10 mg PO Q48H #30 tablet 02/20/18 [Rx] levoFLOXacin [Levaquin] 750 mg PO DAILY 3 Days #3 tablet 02/20/18 [Rx] predniSONE [PredniSONE] 40 mg PO DAILY #10 tablet 02/20/18 [Rx] Allergies/Adverse Reactions: Allergy/AdvReac Type Severity Reaction Status Date / Time No Known Allergies Allergy Verified 02/14/18 10:35 Date of admission: 02/14/18 11:56 Primary care physician: Dion Whitman MD Consults: 02/15/18 09:57 Consult to Palliative Care [CONS] Routine Comment: Consulting Provider: Palliative Care [facility] Reason for Consult: recurrent intubations Call Completed: No 02/15/18 11:33 Consult to Occupational Therapy [CONS] Routine Comment: Evaluate, develop and implement POC Reason for Consult: Evaluate for discharge planning. Considering HH PT/OT. Patient lives with daughters. Does patient have active BEDREST order?: No Is patient medically & hemodynamically stable?: Yes Consult to Physical Therapy [CONS] Routine Comment: Evaluate, develop and implement POC Reason for Consult: Evaluate for discharge planning. Considering HH PT/OT. Patient lives with daughters. Does patient have active BEDREST order?: No Is patient medically & hemodynamically stable?: Yes - Constitutional Vitals: Temp Pulse Resp BP Pulse Ox 97.2 F L 81 20 155/87 96 02/20/18 06:51 02/20/18 06:51 02/20/18 07:46 02/20/18 06:51 02/20/18 07:46 Exam: General: Alert and oriented, not in acute distress. Morbidly obese Cardiovascular: distant heart sound, S1S2, unable to appreciate JVD Lungs: Minimal wheezes bilaterally Abdomen:Soft, non-tender, no rigidity. Extremities:No deformity or swelling Neurological:Normal cognition and motor skills. Non-focal - Patient Status Disposition: Home Health Service Condition: Critical Overall status at discharge: patient is progressing back to baseline - Discharge Instructions Instructions: Chronic Obstructive Pulmonary Disease (DC), Pneumonia (DC) Follow Up With: Dion Whitman MD [Primary Care Provider] - - Diet and Activity Activity: as per physical therapy Diet: low salt diet
--- NOTE | 2018-02-20 10:20 | Physician Discharge Referral ---
Home Health/Hosp Referral Info Transfer to: Home Health - Diagnosis (1) Acute on chronic respiratory failure with hypercapnia Priority: Primary Status: Acute (2) COPD exacerbation Priority: Secondary Status: Acute (3) Pneumonia Priority: Secondary Status: Acute (4) Tobacco abuse Priority: Secondary Status: Chronic (5) CAD (coronary artery disease) Priority: Secondary Status: Chronic - Respiratory Orders Oxygen / L per min (3-4L at rest) Smoking Cessation: Smoking cessation has been advised. For more information, call the [place] [employer] Quit Line at 2-326-AXIU-NOW. - Services Needed Following services are medically necessary services: Nursing, Physical Therapy, Occupational Therapy - Transfer Medications Prescriptions: GuaiFENesin ER [Mucinex] 600 mg PO BID PRN #60 tbbp.12hr PRN Reason: Congestion levoFLOXacin [Levaquin] 750 mg PO DAILY 3 Days #3 tablet predniSONE [PredniSONE] 40 mg PO DAILY #10 tablet Torsemide [Demadex] 10 mg PO Q48H #30 tablet Home Medications: Ipratropium/Albuterol Neb [Duoneb] 3 ml IH QID PRN 08/12/15 [History] Omeprazole [PriLOSEC] 20 mg PO DAILY 08/12/15 [History] Aspirin 81 mg PO DAILY tab.chew 04/06/16 [Rx] Atorvastatin [Lipitor] 40 mg PO HS 01/26/17 [History] Metoprolol Succinate 100 mg PO DAILY 01/26/17 [History] Theophylline Anhydrous [Theophylline] 200 mg PO DAILY 04/25/17 [History] Tiotropium [Spiriva] 18 mcg IH DAILY 04/25/17 [History] ALPRAZolam [Xanax 0.5 MG Tablet] 0.25 - 0.5 mg PO BID PRN 11/13/17 [History] Cholecalciferol (D-3) [Vitamin D] 5,000 unit PO DAILY 11/13/17 [History] Fluticasone/Salmeterol [Advair 500-50 Diskus] 1 puff IH BID 11/13/17 [History] Losartan/Hydrochlorothiazide [Hyzaar 100-25 Tablet] 1 tab PO DAILY 11/13/17 [History] Albuterol Sulfate [Albuterol Inhaler] 2 puff IH Q6H PRN 02/14/18 [History] Alendronate Sodium 70 mg PO QWEEK 02/14/18 [History] Escitalopram [Lexapro] 20 mg PO DAILY 02/14/18 [History] Albuterol Neb [Proventil Neb] 2.5 mg IH Q4HR PRN 02/15/18 [History] Roflumilast [Daliresp] 500 mg PO DAILY 02/15/18 [History] GuaiFENesin ER [Mucinex] 600 mg PO BID PRN #60 tbbp.12hr 02/20/18 [Rx] Torsemide [Demadex] 10 mg PO Q48H #30 tablet 02/20/18 [Rx] levoFLOXacin [Levaquin] 750 mg PO DAILY 3 Days #3 tablet 02/20/18 [Rx] predniSONE [PredniSONE] 40 mg PO DAILY #10 tablet 02/20/18 [Rx] Allergies/Adverse Reactions: Allergy/AdvReac Type Severity Reaction Status Date / Time No Known Allergies Allergy Verified 02/14/18 10:35 Certification: Further, I certify that my clinical findings support that this patient is homebound (i.e. absences from home require considerable and taxing effort and are for medical reasons or gnosticism services or infrequently or short duration when for other reasons) because: Homebound Reason: Patient requires assistance of a person or device to safely leave home Attestation: My signature below is to certify that this patient is under my care and that I, or nurse practitioner, or a physician's assistant store director working with me, has a [id number] encounter with this patient.
== END 2018-02-20 15:00 | disposition home health service (06) | DRG 208 ==
LOC: EMEROOARM 10:23 → ICNU 11:56 → SUATTDRO 11:56 → ICNU 13:35 → 2NENU 02-16 18:20
PROVIDERS: ADMIT Internal Medicine Pulmonary Disease; ATTEND Internal Medicine

== ENCOUNTER 2018-04-09 12:07 | Inpatient (IN) ==
[2018-04-09] MEDS ORDERED: Ipratropium/Albuterol Neb 3 ML IH ONE (12:22)
--- NOTE | 2018-04-09 12:52 | Emergency Department Note ---
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 She states her gasoline plant operator felt she may have new onset atrial fibrillation. The patient has no history of CAD prior cardiac stent or headache dysrhythmia she has a known history of COPD. She describes shortness of breath. Slight cough. No chest pain no leg swelling or pain or coughing up blood. The patient has abdominal pain vomiting diarrhea or fever. The patient requires 2 L nasal cannula at home on a chronic basis. She has no history of malignancy DVT or PE. No syncope reported. On arrival to the emergency department the patient's oxygen saturations were 83%. Pain Scale: 1 - Related Data Home Medications Medication Instructions Recorded Confirmed RX: Ipratropium/Albuterol Neb 3 ml IH QID PRN 08/12/15 04/09/18 [Duoneb] RX: Omeprazole [PriLOSEC] 20 mg PO DAILY 08/12/15 04/09/18 RX: Atorvastatin [Lipitor] 40 mg PO HS 01/26/17 04/09/18 RX: Metoprolol Succinate 100 mg PO DAILY 01/26/17 04/09/18 RX: Theophylline Anhydrous 200 mg PO DAILY 04/25/17 04/09/18 [Theophylline] RX: Tiotropium [Spiriva] 18 mcg IH DAILY 04/25/17 04/09/18 RX: ALPRAZolam [Xanax 0.5 MG 0.25 - 0.5 mg PO BID PRN 11/13/17 04/09/18 Tablet] RX: Cholecalciferol (D-3) [Vitamin 5,000 unit PO DAILY 11/13/17 04/09/18 D] RX: Fluticasone/Salmeterol [Advair 1 puff IH BID 11/13/17 04/09/18 500-50 Diskus] RX: Losartan/Hydrochlorothiazide 1 tab PO DAILY 11/13/17 04/09/18 [Hyzaar 100-25 Tablet] RX: Albuterol Sulfate [Albuterol 2 puff IH Q6H PRN 02/14/18 04/09/18 Inhaler] RX: Alendronate Sodium 70 mg PO QWEEK 02/14/18 04/09/18 RX: Escitalopram [Lexapro] 20 mg PO DAILY 02/14/18 04/09/18 Previous Rx's Medication Instructions Recorded RX: Aspirin 81 mg PO DAILY tab.chew 04/06/16 RX: GuaiFENesin ER [Mucinex] 600 mg PO BID PRN #60 tbbp.12hr 02/20/18 RX: Torsemide [Demadex] 10 mg PO Q48H #30 tablet 02/20/18 Allergies Allergy/AdvReac Type Severity Reaction Status Date / Time No Known Allergies Allergy Verified 02/14/18 10:35 All systems ED: reviewed and negative except as stated. Past Medical History - Past Medical History Medical history: Reports: COPD, hypertension Surgical history: Reports: hysterectomy, orthopedic, other Psychiatric history: Reports: anxiety BIN WORKER history: Reports: no BIN WORKER history - Social History Smoking Status: Current every day smoker Smokeless Tobacco Status: No Alcohol use: Reports: none Drug use: Reports: none Physical Exam - General Limitations: no limitations General appearance: alert, in no apparent distress - Head Head exam: atraumatic, normocephalic, normal inspection - Eye Eye exam: Present: normal appearance, PERRL, EOMI - ENT ENT exam: normal exam, normal oropharynx, mucous membranes moist - Neck Neck exam: Present: normal inspection, full ROM, trachea midline - Chest Chest inspection: Present: normal inspection, symmetric chest wall rise - Respiratory Respiratory exam: Present: prolonged expiratory phase. Absent: respiratory distress - Cardiovascular Cardiovascular exam: Present: tachycardia, irregular rhythm - Abdominal Exam Abdominal exam: Present: soft, Non-Tender, normal bowel sounds. Absent: tenderness, distention, guarding, rebound, rigidity - Extremities Exam Extremities exam: Present: normal inspection, full ROM, normal capillary refill. Absent: tenderness, pedal edema, joint swelling, calf tenderness - Expanded Lower Extremity Exam Neurovascular/Tendon exam: Present: normal capillary refill. Absent: motor deficit, sensory deficit, tendon deficit, extremity cold to touch, pallor - Back Exam Back exam: Present: normal inspection, full ROM. Absent: tenderness, CVA tenderness (R), CVA tenderness (L), vertebral tenderness - Neurological Exam Neurological exam: Present: alert, oriented X3, CN II-XII intact. Absent: motor sensory deficit - Psychiatric Psychiatric exam: Present: normal affect, normal mood - Skin Skin exam: Present: warm, dry, intact, normal color Course Vital Signs Temperature 97.9 F 04/09/18 12:10 Pulse Rate 127 04/09/18 12:10 Respiratory Rate 20 04/09/18 12:10 Blood Pressure 107/64 04/09/18 12:10 O2 Sat by Pulse Oximetry 83 04/09/18 12:10 Temperature 97.9 F 04/09/18 12:10 Pulse Rate 111 04/09/18 12:24 Respiratory Rate 18 04/09/18 12:40 Blood Pressure 124/90 04/09/18 12:24 O2 Sat by Pulse Oximetry 97 04/09/18 12:40 Oxygen Delivery Oxygen Delivery Nasal Cannula Medical Decision Making - MDM Narrative Medical decision making narrative: The patient's oxygen saturation on arrival was 83%. She was given a DuoNeb as well as steroids. EKG shows a sinus tachycardia however occasional irregu larities are noted on the monitor, she has no history of cardiac dysrhythmia. Urinalysis shows changes suggestive of UTI. Initial lactate negative. The patient was tachycardic and tachypneic and has changes suggestive of UTI and may meet sepsis criteria. She has a history of CHF and does have apparent hypokalemia with a potassium of 3.0. Hypercarbia noted based on chem basic ABG ordered. IV access established antibiotics have been ordered. Based on the patient's age, hypoxemia, hypokalemia, and hypercarbia, comobid COPD and apparent UTI with potential sepsis, I thought it would be appropriate to admit the patient to the hospital. The patient is agreeable. I discussed the case with the hospitalist on-call who has accepted the patient to their care. Potassium was ordered magnesium also noted to be low magnesium ordered IV. ABG pending. - Lab Data Lab results reviewed: Yes I reviewed the patient's lab results. Result diagrams: 04/09/18 13:14 04/09/18 13:14 Lab Results 04/09/18 04/09/18 04/09/18 Range/Units 13:14 13:14 13:14 WBC 11.6 H (4.3-11.1) K/mcL RBC 4.35 (3.82-4.97) M/mcL Hgb 13.4 (11.5-15.4) g/dL Hct 40.4 (35.3-44.9) % MCV 92.9 (83.0-100.0) fL MCH 30.8 (28.0-33.3) pg MCHC 33.2 (31.6-35.5) g/dL RDW 14.1 (11.5-14.5) % Plt Count 344 (140-400) K/mcL MPV 8.8 L (9.4-12.4) fL Immature Gran % 0.3 (0-4) % Seg Neutrophils % 82.6 % Lymphocytes % 10.5 % Monocytes % 5.5 % Eosinophils % 0.9 % Basophils % 0.2 % Neutrophils # 9.6 H (1.6-8.9) K/mcL Lymphocytes # 1.2 (0.6-4.6) K/mcL Monocytes # 0.6 (0.0-1.3) K/mcL Eosinophils # 0.1 (0.0-0.6) K/mcL Basophils # 0.0 (0.0-0.2) K/mcL PT 10.6 (9.4-12.1) Seconds INR 0.9 APTT 25.3 L (26.0-36.0) Seconds Sodium 133 L (136-145) mEq/L Potassium 3.0 L (3.5-5.1) mEq/L Chloride 87 L (98-107) mEq/L Carbon Dioxide 41 H* (23-29) mEq/L BUN 11 (8-23) mg/dL Creatinine 0.69 (0.60-1.20) mg/dL Est GFR ( Amer) > 60 (> 60) Est GFR (Non-Af Amer) > 60 (> 60) BUN/Creatinine Ratio 16 (6-26) Glucose 131 H (70-105) mg/dL Calculated Osmolality 277 L (280-300) Lactic Acid (0.5-2.2) mmol/L Calcium 9.3 (8.6-10.3) mg/dL Magnesium 1.5 L (1.6-2.6) mg/dL Total Bilirubin 0.3 (0.3-1.0) mg/dL Direct Bilirubin 0.1 (0.0-0.2) mg/dL Indirect Bilirubin 0.2 (0.0-1.2) mg/dL AST 13 (13-39) Units/L ALT 13 (7-52) Units/L Alkaline Phosphatase 94 (34-104) Units/L Troponin I < 0.03 (< 0.04) ng/mL C-Reactive Protein (Less than 10) mg/L B-Natriuretic Peptide (Less than 100) pg/mL Serum Total Protein 6.5 (6.4-8.9) g/dL Albumin 3.7 (3.5-5.7) g/dL Globulin 2.8 (2.4-3.5) g/dL Albumin/Globulin Ratio 1.3 (1.1-2.2) TSH (0.340-5.600) mcIU/mL Free T4 (0.70-2.00) ng/dl Urine Color (Yellow) Urine Clarity (Clear) Urine pH (5.0-8.0) pH Units Ur Specific [place] (1.010-1.025) Urine Protein (Neg-Trace) mg/dL Urine Glucose (UA) (Normal) mg/dL Urine Ketones (Negative) mg/dL Urine Blood (Negative) Urine Nitrite (Negative) Urine Bilirubin (Negative) Urine Urobilinogen (Normal) mg/dL Ur Leukocyte Esterase (Negative) Urine Microscopic RBC (0-3) per hpf Urine Microscopic WBC (0-3) per hpf Ur Squamous Epith Cells (None-Few) per lpf Urine Bacteria (None-Few) per hpf Hyaline Casts (None-Few) per lpf Ur Culture Indicated? (NO) 04/09/18 04/09/18 04/09/18 Range/Units 13:14 13:14 13:14 WBC (4.3-11.1) K/mcL RBC (3.82-4.97) M/mcL Hgb (11.5-15.4) g/dL Hct (35.3-44.9) % MCV (83.0-100.0) fL MCH (28.0-33.3) pg MCHC (31.6-35.5) g/dL RDW (11.5-14.5) % Plt Count (140-400) K/mcL MPV (9.4-12.4) fL Immature Gran % (0-4) % Seg Neutrophils % % Lymphocytes % % Monocytes % % Eosinophils % % Basophils % % Neutrophils # (1.6-8.9) K/mcL Lymphocytes # (0.6-4.6) K/mcL Monocytes # (0.0-1.3) K/mcL Eosinophils # (0.0-0.6) K/mcL Basophils # (0.0-0.2) K/mcL PT (9.4-12.1) Seconds INR APTT (26.0-36.0) Seconds Sodium (136-145) mEq/L Potassium (3.5-5.1) mEq/L Chloride (98-107) mEq/L Carbon Dioxide (23-29) mEq/L BUN (8-23) mg/dL Creatinine (0.60-1.20) mg/dL Est GFR ( Amer) (> 60) Est GFR (Non-Af Amer) (> 60) BUN/Creatinine Ratio (6-26) Glucose (70-105) mg/dL Calculated Osmolality (280-300) Lactic Acid 2.1 (0.5-2.2) mmol/L Calcium (8.6-10.3) mg/dL Magnesium (1.6-2.6) mg/dL Total Bilirubin (0.3-1.0) mg/dL Direct Bilirubin (0.0-0.2) mg/dL Indirect Bilirubin (0.0-1.2) mg/dL AST (13-39) Units/L ALT (7-52) Units/L Alkaline Phosphatase (34-104) Units/L Troponin I (< 0.04) ng/mL C-Reactive Protein 6 (Less than 10) mg/L B-Natriuretic Peptide 38 (Less than 100) pg/mL Serum Total Protein (6.4-8.9) g/dL Albumin (3.5-5.7) g/dL Globulin (2.4-3.5) g/dL Albumin/Globulin Ratio (1.1-2.2) TSH 0.664 (0.340-5.600) mcIU/mL Free T4 1.12 (0.70-2.00) ng/dl Urine Color (Yellow) Urine Clarity (Clear) Urine pH (5.0-8.0) pH Units Ur Specific [place] (1.010-1.025) Urine Protein (Neg-Trace) mg/dL Urine Glucose (UA) (Normal) mg/dL Urine Ketones (Negative) mg/dL Urine Blood (Negative) Urine Nitrite (Negative) Urine Bilirubin (Negative) Urine Urobilinogen (Normal) mg/dL Ur Leukocyte Esterase (Negative) Urine Microscopic RBC (0-3) per hpf Urine Microscopic WBC (0-3) per hpf Ur Squamous Epith Cells (None-Few) per lpf Urine Bacteria (None-Few) per hpf Hyaline Casts (None-Few) per lpf Ur Culture Indicated? (NO) 04/09/18 Range/Units 14:02 WBC (4.3-11.1) K/mcL RBC (3.82-4.97) M/mcL Hgb (11.5-15.4) g/dL Hct (35.3-44.9) % MCV (83.0-100.0) fL MCH (28.0-33.3) pg MCHC (31.6-35.5) g/dL RDW (11.5-14.5) % Plt Count (140-400) K/mcL MPV (9.4-12.4) fL Immature Gran % (0-4) % Seg Neutrophils % % Lymphocytes % % Monocytes % % Eosinophils % % Basophils % % Neutrophils # (1.6-8.9) K/mcL Lymphocytes # (0.6-4.6) K/mcL Monocytes # (0.0-1.3) K/mcL Eosinophils # (0.0-0.6) K/mcL Basophils # (0.0-0.2) K/mcL PT (9.4-12.1) Seconds INR APTT (26.0-36.0) Seconds Sodium (136-145) mEq/L Potassium (3.5-5.1) mEq/L Chloride (98-107) mEq/L Carbon Dioxide (23-29) mEq/L BUN (8-23) mg/dL Creatinine (0.60-1.20) mg/dL Est GFR ( Amer) (> 60) Est GFR (Non-Af Amer) (> 60) BUN/Creatinine Ratio (6-26) Glucose (70-105) mg/dL Calculated Osmolality (280-300) Lactic Acid (0.5-2.2) mmol/L Calcium (8.6-10.3) mg/dL Magnesium (1.6-2.6) mg/dL Total Bilirubin (0.3-1.0) mg/dL Direct Bilirubin (0.0-0.2) mg/dL Indirect Bilirubin (0.0-1.2) mg/dL AST (13-39) Units/L ALT (7-52) Units/L Alkaline Phosphatase (34-104) Units/L Troponin I (< 0.04) ng/mL C-Reactive Protein (Less than 10) mg/L B-Natriuretic Peptide (Less than 100) pg/mL Serum Total Protein (6.4-8.9) g/dL Albumin (3.5-5.7) g/dL Globulin (2.4-3.5) g/dL Albumin/Globulin Ratio (1.1-2.2) TSH (0.340-5.600) mcIU/mL Free T4 (0.70-2.00) ng/dl Urine Color Yellow (Yellow) Urine Clarity Clear (Clear) Urine pH 7.5 (5.0-8.0) pH Units Ur Specific [place] < 1.005 L (1.010-1.025) Urine Protein Negative (Neg-Trace) mg/dL Urine Glucose (UA) Normal (Normal) mg/dL Urine Ketones Negative (Negative) mg/dL Urine Blood Negative (Negative) Urine Nitrite Negative (Negative) Urine Bilirubin Negative (Negative) Urine Urobilinogen Normal (Normal) mg/dL Ur Leukocyte Esterase Moderate H (Negative) Urine Microscopic RBC 0-3 (0-3) per hpf Urine Microscopic WBC 30-50 H (0-3) per hpf Ur Squamous Epith Cells Many H (None-Few) per lpf Urine Bacteria Moderate H (None-Few) per hpf Hyaline Casts None Seen (None-Few) per lpf Ur Culture Indicated? NO. A (NO) - Radiology Data Radiology results reviewed: Yes I reviewed the patient's radiology results.
[2018-04-09] MEDS ORDERED: methylPREDNISolone 125 MG/2 ML VIAL IVP ONE (13:02)
[2018-04-09 13:28] LABS: Basophils % 0.2 %; Eosinophils # 0.1 K/mcL (0.0-0.6); Eosinophils % 0.9 %; Hematocrit 40.4 % (35.3-44.9); Hemoglobin 13.4 g/dL (11.5-15.4); Immature Granulocytes % 0.3 % (0-4); Lymphocytes # 1.2 K/mcL (0.6-4.6); Lymphocytes % 10.5 %; Mean Corpuscular HGB Conc 33.2 g/dL (31.6-35.5); Mean Corpuscular Hemoglobin 30.8 pg (28.0-33.3); Mean Corpuscular Volume 92.9 fL (83.0-100.0); Mean Platelet Volume 8.8 fL (9.4-12.4); Monocytes # 0.6 K/mcL (0.0-1.3); Monocytes % 5.5 %; Neutrophils # 9.6 K/mcL (1.6-8.9); Platelet Count 344 K/mcL (140-400); Red Blood Count 4.35 M/mcL (3.82-4.97); Red Cell Distribution Width 14.1 % (11.5-14.5); Segmented Neutrophils % 82.6 %
[2018-04-09 13:39] LABS: INR 0.9; Prothrombin Time 10.6 Seconds (9.4-12.1)
[2018-04-09 13:42] LABS: Activated Partial Thrombo Time 25.3 Seconds (26.0-36.0)
[2018-04-09 13:51] LABS: Troponin I < 0.03 ng/mL (< 0.04)
[2018-04-09 13:57] LABS: Alanine Aminotransferase 13 Units/L (7-52); Albumin 3.7 g/dL (3.5-5.7); Albumin/Globulin Ratio 1.3 (1.1-2.2); Alkaline Phosphatase 94 Units/L (34-104); Aspartate Amino Transferase 13 Units/L (13-39); BUN/Creatinine Ratio 16 (6-26); Bilirubin,Direct 0.1 mg/dL (0.0-0.2); Bilirubin,Indirect 0.2 mg/dL (0.0-1.2); Bilirubin,Total 0.3 mg/dL (0.3-1.0); Blood Urea Nitrogen 11 mg/dL (8-23); Calcium 9.3 mg/dL (8.6-10.3); Carbon Dioxide 41 mEq/L (23-29); Chloride 87 mEq/L (98-107); Globulin 2.8 g/dL (2.4-3.5); Glucose 131 mg/dL (70-105); Osmolality,Calculated 277 (280-300); Sodium 133 mEq/L (136-145); Total Protein 6.5 g/dL (6.4-8.9); eGFR For Non-African Americans > 60 (> 60)
[2018-04-09 14:03] LABS: Thyroid Stimulating Hormone 0.664 mcIU/mL (0.340-5.600)
[2018-04-09 14:18] LABS: Bilirubin,Urine Negative (Negative); Blood,Urine Negative (Negative); Clarity,Urine Clear (Clear); Color,Urine Yellow (Yellow); Glucose,Urine (UA) Normal (Normal); Ketones,Urine Negative (Negative); Leukocyte Esterase,Urine Moderate (Negative); Nitrite,Urine Negative (Negative); PH,Urine 7.5 pH Units (5.0-8.0); Protein,Urine Negative (Neg-Trace); Specific Gravity,Urine < 1.005 (1.010-1.025); Urobilinogen,Urine Normal (Normal)
[2018-04-09 14:22] LABS: Bacteria,Urine Moderate per hpf (None-Few); Hyaline Casts,Urine None Seen per lpf (None-Few); RBC,Urine 0-3 per hpf (0-3); Squamous Epithelial Cell,Urine Many per lpf (None-Few); WBC,Urine 30-50 per hpf (0-3)
[2018-04-09] MEDS ORDERED: Potassium Chloride Elixir 20 MEQ/15 ML UDC PO ONE (14:34)
[2018-04-09] MEDS ORDERED: cefTRIAXone 1,000 MG in Water for inj. (sterile) 20 ML 10 ML IVP ONE (14:34)
[2018-04-09 15:23] LABS: Magnesium 1.5 mg/dL (1.6-2.6)
[2018-04-09] MEDS ORDERED: Torsemide 20 MG TABLET PO SCH (17:00)
--- NOTE | 2018-04-09 17:21 | Internal Med History&Physical ---
Date of Encounter: 04/09/18 Time of Encounter: 17:00 Internal Medicine - H&P: HPI Chief complaint: Cough and tachycardia Admitted From: Home History of present illness: Patient is a 67-year-old female with past medical history significant for O2 dependent COPD on 2 L nasal cannula continuously, coronary arterial disease, hypertension and hyperlipidemia and mood disorder who presents from pulmonologists office due to tachycardia and COPD exacerbation. Patient reports of not feeling well for the last 24 hours with shortness of breath and increased nonproductive cough. Patient states while at pulmonologists office, there were concerns for her elevated heart rate therefore sent to the ER for further evaluation and monitoring. Patient reports that her heart rate tends to be on the high side at baseline. In the ER patients found to have slight leukocytosis will follow-up blood cell count 11.6, and tachycardia with a heart rate of 111. Chest x-ray revealed bilateral subsegmental atelectasis. EKG reviewed by myself in the ER revealed sinus tachycardia. She was also found to have hypokalemia and hypomagnesemia in addition to pyuria on urinalysis. Patient will be admitted for observation for management of COPD exacerbation. Past Med Surg Social Fam HX - Past Medical History Medical history: COPD, hypertension Additional medical history: unsure about CHF, recent falls Psychiatric history: anxiety - Past Surgical History Surgical History: hysterectomy, orthopedic, other Additional surgical history: right knee, left shoulder, left arm, right ankle - Social History Smoking Status: Current every day smoker Smokeless Tobacco Status: No Alcohol use: none Drug use: none - Family History Mother Family Member Ethnicity: Non- Living Status: Hx Family Cardiac Disorders: Yes Hx Family Cancer: Yes (Colon) Hx Family Neurologic Disorders: Yes (cva) Hx Family HEENT Disorders: Yes (macular degeneration) Father Adopted: No Family Member Ethnicity: Non- Living Status: Hx Family Cardiac Disorders: Yes Hx Family Respiratory Disorders: No Hx Family Cancer: Yes (colon ca 1980) Hx Family GI Disorders: No Hx Family Endocrine Disorder: No Hx Family Neuromuscular Disorders: No Hx Family Neurologic Disorders: Yes (CVA with left side weakness) Hx Family HEENT Disorders: Yes (macular degeneration) Hx Family Autoimmune Disorders: No Internal Medicine - H&P: Meds Ipratropium/Albuterol Neb [Duoneb] 3 ml IH QID PRN 08/12/15 [History] Omeprazole [PriLOSEC] 20 mg PO DAILY 08/12/15 [History] Aspirin 81 mg PO DAILY tab.chew 04/06/16 [Rx] Atorvastatin [Lipitor] 40 mg PO HS 01/26/17 [History] Metoprolol Succinate 100 mg PO DAILY 01/26/17 [History] Theophylline Anhydrous [Theophylline] 200 mg PO DAILY 04/25/17 [History] Tiotropium [Spiriva] 18 mcg IH DAILY 04/25/17 [History] ALPRAZolam [Xanax 0.5 MG Tablet] 0.25 - 0.5 mg PO BID PRN 11/13/17 [History] Cholecalciferol (D-3) [Vitamin D] 5,000 unit PO DAILY 11/13/17 [History] Fluticasone/Salmeterol [Advair 500-50 Diskus] 1 puff IH BID 11/13/17 [History] Losartan/Hydrochlorothiazide [Hyzaar 100-25 Tablet] 1 tab PO DAILY 11/13/17 [History] Albuterol Sulfate [Albuterol Inhaler] 2 puff IH Q6H PRN 02/14/18 [History] Alendronate Sodium 70 mg PO QWEEK 02/14/18 [History] Escitalopram [Lexapro] 20 mg PO DAILY 02/14/18 [History] GuaiFENesin ER [Mucinex] 600 mg PO BID PRN #60 tbbp.12hr 02/20/18 [Rx] Torsemide [Demadex] 10 mg PO Q48H #30 tablet 02/20/18 [Rx] Allergy/AdvReac Type Severity Reaction Status Date / Time No Known Allergies Allergy Verified 02/14/18 10:35 All Systems PM: A 10-system review of systems was performed and is negative for pertinent findings except as documented above in the HPI. - Constitutional Vitals: Temp Pulse Resp BP Pulse Ox 97.9 F 111 18 124/90 97 04/09/18 12:10 04/09/18 12:24 04/09/18 12:40 04/09/18 12:24 04/09/18 12:40 General appearance: Present: A&O X 3, no acute distress Exam: As above - Head Head exam: Present: normocephalic - Eye Eye exam: Present: normal appearance - ENT ENT exam: Present: mucous membranes moist - Respiratory Respiratory exam: Present: CTAB. Absent: accessory muscle use, rales, rhonchi, wheezes - Cardiovascular Cardiovascular exam: Present: RRR, +S1, +S2. Absent: diastolic murmur, gallop, rubs, systolic murmur - GI/Abdominal GI/Abdominal exam: Present: normal bowel sounds, soft, no peritoneal signs. Absent: distended, tenderness - Extremities Exam Extremities exam: Absent: pedal edema - Neurological Exam Neurological exam: Present: oriented X3, no focal deficits - Psychiatric Psychiatric exam: Present: normal mood - Skin Skin exam: Present: normal color Internal Med - H&P Results - Labs CBC & Chem 7: 04/09/18 13:14 04/09/18 13:14 Labs: Short CBC 04/09/18 Range/Units 13:14 WBC 11.6 H (4.3-11.1) K/mcL Hgb 13.4 (11.5-15.4) g/dL Hct 40.4 (35.3-44.9) % Plt Count 344 (140-400) K/mcL Neutrophils # 9.6 H (1.6-8.9) K/mcL BMP 04/09/18 13:14 Sodium 133 L Potassium 3.0 L Chloride 87 L Carbon Dioxide 41 H* BUN 11 Creatinine 0.69 Glucose 131 H Calcium 9.3 Cardiac Enzymes 04/09/18 Range/Units 13:14 Troponin I < 0.03 (< 0.04) ng/mL Liver Function 04/09/18 Range/Units 13:14 Total Bilirubin 0.3 (0.3-1.0) mg/dL Direct Bilirubin 0.1 (0.0-0.2) mg/dL AST 13 (13-39) Units/L ALT 13 (7-52) Units/L Alkaline Phosphatase 94 (34-104) Units/L Albumin 3.7 (3.5-5.7) g/dL Urine 04/09/18 Range/Units 14:02 Urine Color Yellow (Yellow) Urine Clarity Clear (Clear) Urine pH 7.5 (5.0-8.0) pH Units Ur Specific [place] < 1.005 L (1.010-1.025) Urine Protein Negative (Neg-Trace) mg/dL Urine Glucose (UA) Normal (Normal) mg/dL - Impressions ITS Impressions Chest X-Ray 04/09/18 12:23 IMPRESSION: 1. Bibasilar subsegmental atelectasis. D/ / Tian Frias MD / Tian Frias MD Interpreting Provider: iTan Frias MD - Assessment and plan (1) Acute exacerbation of chronic obstructive airways disease Current Visit: Yes Status: Acute Assessment and plan: Patient with increased of nonproductive cough but only requiring baseline supplemental oxygenation Does have a slight leukocytosis with a WBC 11.6 Will treat as COPD exacerbation with IV Solu-Medrol and scheduled DuoNeb's Continue home medications of Advair and theophylline (2) Chronic respiratory failure with hypoxia and hypercapnia Current Visit: Yes Status: Acute Assessment and plan: Patient is on 2 L nasal cannula which is her baseline O2 requirements (3) Pyuria Current Visit: Yes Status: Acute Assessment and plan: Patient reports of dysuria and found to have pyuria on urinalysis Will treat as a UTI and continue IV ceftriaxone started in the ER (4) Tachycardia Current Visit: Yes Status: Acute Assessment and plan: Patient found to have a heart rate of 111 in the ER and EKG revealed by myself revealed sinus tachycardia She reports that at baseline her heart rate is higher than normal Monitor on telemetry overnight (5) HTN (hypertension) Current Visit: No Status: Chronic Assessment and plan: Continue on home dose of losartan hydrochlorothiazide and metoprolol succinate Qualifiers: Hypertension type: essential hypertension Qualified Code(s): I10 - Essen tial (primary) hypertension (6) Hypomagnesemia Current Visit: Yes Status: Acute Assessment and plan: Patient with a magnesium of 1.5 on admission and was given magnesium sulfate 2 g IV in the ER Will continue to monitor (7) Hypokalemia Current Visit: No Status: Acute Assessment and plan: Potassium found to be 3.0 on admission Patient was given calcium chloride 40 mEq 1 in the ER Will continue to monitor (8) CAD (coronary artery disease) Current Visit: No Status: Chronic Assessment and plan: Patient with a documented history of coronary arterial disease Continue beta brenda and statin and aspirin Qualifiers: Qualified Code(s): I25.10 - Atherosclerotic heart disease of [place] coronary artery without angina pectoris (9) Obesity (BMI 30.0-34.9) Current Visit: No Status: Acute Assessment and plan: BMI 35.9 (10) Tobacco abuse Current Visit: No Status: Chronic Assessment and plan: Nicotine replacement offered (11) DVT prophylaxis Current Visit: No Status: Acute Assessment and plan: Heparin subcutaneous - Time Spent With Patient Total time spent is greater than 50% in coordination of care (as documented) at patient's floor/unit and/or counseling patient:
[2018-04-09] MEDS ORDERED: Naloxone 0.4 MG/ML INJ IVP PRN (17:44)
[2018-04-09] MEDS ORDERED: NON-FORMULARY MEDICATION 1 EACH EACH (Alendronate Sodium [Alendronate Sodium] 70 MG) PO SCH (18:00)
[2018-04-09] MEDS: Ipratropium/Albuterol Neb 3 ML IH SCH (20:07)
[2018-04-09] MEDS: Budesonide/Formoterol 160/4.5 1 PUFF INH IH SCH (20:07)
--- NOTE | 2018-04-09 21:31 | Electrocardiograph Report ---
[facility] Test Date: 2018-04-09 Pat Name: Debbie Cook Department: [id number] Room: 2A22 Gender: F [employer] Technician: : 1950 Requested By: Jeanmarie Bravo Order Number: [id number] Reading MD: Wilfred Luo Measurements Intervals [place] Rate: 108 P: 60 WV: 143 QRS: 7 QRSD: 87 T: 57 QT: 367 QTc: 492 Interpretive Statements Sinus tachycardia Electronically Signed On 04-09-2018 21:29:29 EST by Wilfred Luo
[2018-04-09] MEDS: MethylPREDNISolone 40 MG/ML VIAL IVP SCH (23:38)
[2018-04-09] MEDS: ALPRAZolam 0.5 MG TABLET PO PRN (23:38)
[2018-04-10] MEDS: Ipratropium/Albuterol Neb 3 ML IH SCH ×7 (00:38→23:20)
[2018-04-10 03:17] LABS: Basophils % 0.1 %; Eosinophils % 0.2 %; Hematocrit 37.5 % (35.3-44.9); Hemoglobin 12.6 g/dL (11.5-15.4); Immature Granulocytes % 0.6 % (0-4); Lymphocytes # 0.5 K/mcL (0.6-4.6); Lymphocytes % 4.5 %; Mean Corpuscular HGB Conc 33.6 g/dL (31.6-35.5); Mean Corpuscular Hemoglobin 31.3 pg (28.0-33.3); Mean Corpuscular Volume 93.1 fL (83.0-100.0); Mean Platelet Volume 9.1 fL (9.4-12.4); Monocytes # 0.1 K/mcL (0.0-1.3); Monocytes % 0.9 %; Neutrophils # 10.1 K/mcL (1.6-8.9); Platelet Count 381 K/mcL (140-400); Red Blood Count 4.03 M/mcL (3.82-4.97); Segmented Neutrophils % 93.7 %
[2018-04-10 05:58] LABS: BUN/Creatinine Ratio 25 (6-26); Blood Urea Nitrogen 17 mg/dL (8-23); Carbon Dioxide 32 mEq/L (23-29); Chloride 91 mEq/L (98-107); Glucose 196 mg/dL (70-105); Osmolality,Calculated 281 (280-300); Potassium 3.4 mEq/L (3.5-5.1); Sodium 132 mEq/L (136-145); eGFR For Non-African Americans > 60 (> 60)
[2018-04-10] MEDS: Budesonide/Formoterol 160/4.5 1 PUFF INH IH SCH ×2 (07:23→19:46)
[2018-04-10] MEDS: Losartan/HCTZ 50-12.5 TABLET PO SCH (08:46)
[2018-04-10] MEDS: MethylPREDNISolone 40 MG/ML VIAL IVP SCH (08:46)
[2018-04-10] MEDS: Metoprolol XL (24 HR) Succ 50 MG TAB.ER.24H PO SCH (08:46)
[2018-04-10] MEDS: Aspirin 81 MG TAB.CHEW PO SCH (08:46)
[2018-04-10] MEDS: cefTRIAXone 1,000 MG in Water for inj. (sterile) 20 ML 10 ML IVP SCH (08:46)
[2018-04-10] MEDS ORDERED: Potassium Chloride Elixir 20 MEQ/15 ML UDC PO ONE (11:42)
[2018-04-10] MEDS: predniSONE 20 MG TABLET PO SCH (15:36)
--- NOTE | 2018-04-10 15:56 | Internal Med Progress Note ---
Hospitalist Progress Note - Encounter Date of Encounter: 04/10/18 Time of Encounter: 15:54 - Subjective Interval History: Patient feels much better today. Denies any significant shortness of breath. She reports that her heart rate is always variable but she does not have any palpitations at this time. Denies any dizziness or lightheadedness. No chest pain. - Exam Vitals: Temp Pulse Resp BP Pulse Ox 98.5 F 114 16 126/71 96 04/10/18 07:42 04/10/18 07:42 04/10/18 07:42 04/10/18 07:42 04/10/18 07:42 Exam: General: Patient is alert, mild distress, oriented x 3 ENT: Mucous membranes moist Respiratory: Prolonged expiratory phase, bilateral wheezing Cardiovascular: Tachycardia. s1 and s2 normal No clicks, rubs, gallops, or murmurs. No pedal edema Abdomen: Abdomen is soft, nontender. Bowel sounds are present Musculoskeletal: Spontaneously moving all extremities Skin: warm, dry, intact. Neuro: Alert oriented x 3 normal cranial nerves, no focal deficits - Assessment and Plan (1) Acute exacerbation of chronic obstructive airways disease Current Visit: Yes Status: Acute Assessment and Plan: Mild acute exacerbation. Continue bronchodilators, prednisone. (2) Tachycardia Current Visit: Yes Status: Acute Assessment and Plan: Patient has sinus tachycardia. Likely due to bronchodilator use and theophylline use. Check theophylline level. Monitor with telemetry. Continue metoprolol (3) HTN (hypertension) Current Visit: Yes Status: Chronic Assessment and Plan: Blood pressure is well controlled. (4) CAD (coronary artery disease) Current Visit: Yes Status: Chronic Assessment and Plan: No chest pain. Continue aspirin, statin. (5) Hypomagnesemia Current Visit: Yes Status: Acute Assessment and Plan: Replaced. (6) Hypokalemia Current Visit: No Status: Acute Assessment and Plan: Potassium 3.4 today. We will continue repletion (7) DVT prophylaxis Current Visit: No Status: Acute Assessment and Plan: Continue subcutaneous heparin (8) Obesity (BMI 30.0-34.9) Current Visit: No Status: Acute (9) Tobacco abuse Current Visit: Yes Status: Chronic (10) Pyuria Current Visit: Yes Status: Acute Assessment and Plan: Continue ceftriaxone. (11) Chronic respiratory failure with hypoxia and hypercapnia Current Visit: Yes Status: Acute Assessment and Plan: Continue O2 supplementation. - Time Spent with Patient Total time spent is greater than 50% in coordination of care (as documented) at patient's floor/unit and/or counseling patient: Internal Medicine: Result - Labs CBC & Chem 7: 04/10/18 02:57 04/10/18 04:29 Labs: Short CBC 04/10/18 Range/Units 02:57 WBC 10.8 (4.3-11.1) K/mcL Hgb 12.6 (11.5-15.4) g/dL Hct 37.5 (35.3-44.9) % Plt Count 381 (140-400) K/mcL Neutrophils # 10.1 H (1.6-8.9) K/mcL BMP 04/10/18 04:29 Sodium 132 L Potassium 3.4 L Chloride 91 L Carbon Dioxide 32 H BUN 17 Creatinine 0.68 Glucose 196 H Calcium 9.0 - ABG Interpretation ABG results: PT/INR, D-dimer PT 10.6 Seconds (9.4-12.1) 04/09/18 13:14 Consult Discharge Plan - Plan Referrals: Dion Whitman MD [Primary Care Provider] - (3) HTN (hypertension) Qualifiers: Hypertension type: essential hypertension Qualified Code(s): I10 - Essential (primary) hypertension (4) CAD (coronary artery disease) Qualifiers: Qualified Code(s): I25.10 - Atherosclerotic heart disease of [place] coronary artery without angina pectoris
[2018-04-10] MEDS: *HR* Heparin 5,000 UNIT/ML VIAL SQ SCH (18:27)
[2018-04-11] MEDS: ALPRAZolam 0.5 MG TABLET PO PRN (00:01)
[2018-04-11] MEDS: Ipratropium/Albuterol Neb 3 ML IH SCH ×3 (03:42→11:43)
[2018-04-11] MEDS: *HR* Heparin 5,000 UNIT/ML VIAL SQ SCH (04:56)
[2018-04-11 05:51] LABS: Basophils % 0.1 %; Hematocrit 37.8 % (35.3-44.9); Hemoglobin 12.2 g/dL (11.5-15.4); Immature Granulocytes % 0.6 % (0-4); Lymphocytes % 4.1 %; Mean Corpuscular HGB Conc 32.3 g/dL (31.6-35.5); Mean Corpuscular Hemoglobin 30.9 pg (28.0-33.3); Mean Corpuscular Volume 95.7 fL (83.0-100.0); Mean Platelet Volume 9.3 fL (9.4-12.4); Monocytes # 0.9 K/mcL (0.0-1.3); Monocytes % 3.8 %; Platelet Count 429 K/mcL (140-400); Red Blood Count 3.95 M/mcL (3.82-4.97); Red Cell Distribution Width 14.3 % (11.5-14.5); Segmented Neutrophils % 91.4 %
[2018-04-11 05:57] LABS: Neutrophils # 21.7 K/mcL (1.6-8.9)
[2018-04-11 06:18] LABS: Platelet Estimate Normal (Normal)
[2018-04-11 06:19] LABS: Anisocytosis 1+ (Not Present)
[2018-04-11 06:51] LABS: BUN/Creatinine Ratio 31 (6-26); Blood Urea Nitrogen 20 mg/dL (8-23); Calcium 8.5 mg/dL (8.6-10.3); Carbon Dioxide 32 mEq/L (23-29); Chloride 92 mEq/L (98-107); Glucose 146 mg/dL (70-105); Osmolality,Calculated 281 (280-300); Potassium 3.7 mEq/L (3.5-5.1); Sodium 133 mEq/L (136-145); eGFR For Non-African Americans > 60 (> 60)
[2018-04-11] MEDS: Budesonide/Formoterol 160/4.5 1 PUFF INH IH SCH (07:33)
[2018-04-11] MEDS: Metoprolol XL (24 HR) Succ 50 MG TAB.ER.24H PO SCH (07:48)
[2018-04-11] MEDS: Losartan/HCTZ 50-12.5 TABLET PO SCH (07:48)
[2018-04-11] MEDS: predniSONE 20 MG TABLET PO SCH (07:48)
[2018-04-11] MEDS: cefTRIAXone 1,000 MG in Water for inj. (sterile) 20 ML 10 ML IVP SCH (07:49)
[2018-04-11] MEDS: Aspirin 81 MG TAB.CHEW PO SCH (07:49)
--- NOTE | 2018-04-11 10:33 | Discharge Summary ---
- NOTES TO OUTPATIENT PROVIDER Notes to Outpatient Provider: Patient with a history of COPD and chronic respiratory failure on 2 L nasal cannula, hypertension, hyperlipidemia was hospitalized here after she was sent to the ER from pulmonology office for evaluation of sinus tachycardia. Patient had wheezing on admission and was treated for acute exacerbation of COPD. Her EKG just showed sinus tachycardia patient has had previous episodes of sinus tachycardia without any symptoms. Her urine did show signs of urinary tract infection patient was treated with antibiotics for it. Her symptoms have now improved and she is feeling much better and is stable to be discharged home. Orders not resulted at time of discharge: Pending orders 04/09/18 13:14 Culture,Blood [BC] Stat 04/09/18 14:40 ABG Chemistry Profile Stat 04/09/18 17:49 ABG Chemistry Profile Stat Date of Encounter: 04/11/18 Time of Encounter: 10:00 - Discharge Diagnosis (1) Acute exacerbation of chronic obstructive airways disease Priority: Primary Status: Acute (2) Tachycardia Priority: Secondary Status: Acute (3) HTN (hypertension) Priority: Secondary Status: Chronic Qualifiers: Hypertension type: essential hypertension Qualified Code(s): I10 - Essential (primary) hypertension (4) CAD (coronary artery disease) Priority: Secondary Status: Chronic Qualifiers: Qualified Code(s): I25.10 - Atherosclerotic heart disease of [place] coronary artery without angina pectoris (5) Hypomagnesemia Priority: Secondary Status: Acute (6) Hypokalemia Priority: Secondary Status: Acute (7) DVT prophylaxis Priority: Secondary Status: Acute (8) Obesity (BMI 30.0-34.9) Priority: Secondary Status: Acute (9) Tobacco abuse Priority: Secondary Status: Chronic (10) Pyuria Priority: Secondary Status: Acute (11) Chronic respiratory failure with hypoxia and hypercapnia Priority: Secondary Status: Acute Hospital course: Ms. Cook is a 67 year old female Patient with a history of COPD and chronic respiratory failure on 2 L nasal cannula, hypertension, hyperlipidemia who was hospitalized here after she was sent to the ER from pulmonology office for evaluation of sinus tachycardia. Patient had wheezing on admission and was treated for acute exacerbation of COPD. Her EKG just showed sinus tachycardia patient has had previous episodes of sinus tachycardia without any symptoms. Her urine did show signs of urinary tract infection patient was treated with antibiotics for it. Her symptoms have now improved and she is feeling much better and is stable to be discharged home. Discharge discussed with: patient, case management - Time Spent with Patient Total time spent providing and/or coordinating discharge services: Greater than 30 minutes (35 min) - Discharge Medications Prescriptions: cephALEXin [Keflex] 500 mg PO BID #6 capsule Potassium Chloride 10 meq PO DAILY #30 tab.er.prt predniSONE [PredniSONE] 40 mg PO DAILY #6 tablet Home Medications: Ipratropium/Albuterol Neb [Duoneb] 3 ml IH QID PRN 08/12/15 [History] Omeprazole [PriLOSEC] 20 mg PO DAILY 08/12/15 [History] Aspirin 81 mg PO DAILY tab.chew 04/06/16 [Rx] Atorvastatin [Lipitor] 40 mg PO HS 01/26/17 [History] Metoprolol Succinate 100 mg PO DAILY 01/26/17 [History] Theophylline Anhydrous [Theophylline] 200 mg PO DAILY 04/25/17 [History] Tiotropium [Spiriva] 18 mcg IH DAILY 04/25/17 [History] ALPRAZolam [Xanax 0.5 MG Tablet] 0.25 - 0.5 mg PO BID PRN 11/13/17 [History] Cholecalciferol (D-3) [Vitamin D] 5,000 unit PO DAILY 11/13/17 [History] Fluticasone/Salmeterol [Advair 500-50 Diskus] 1 puff IH BID 11/13/17 [History] Losartan/Hydrochlorothiazide [Hyzaar 100-25 Tablet] 1 tab PO DAILY 11/13/17 [History] Albuterol Sulfate [Albuterol Inhaler] 2 puff IH Q6H PRN 02/14/18 [History] Alendronate Sodium 70 mg PO QWEEK 02/14/18 [History] Escitalopram [Lexapro] 20 mg PO DAILY 02/14/18 [History] GuaiFENesin ER [Mucinex] 600 mg PO BID PRN #60 tbbp.12hr 02/20/18 [Rx] Torsemide [Demadex] 10 mg PO Q48H #30 tablet 02/20/18 [Rx] Potassium Chloride 10 meq PO DAILY #30 tab.er.prt 04/11/18 [Rx] cephALEXin [Keflex] 500 mg PO BID #6 capsule 04/11/18 [Rx] predniSONE [PredniSONE] 40 mg PO DAILY #6 tablet 04/11/18 [Rx] Allergies/Adverse Reactions: Allergy/AdvReac Type Severity Reaction Status Date / Time No Known Allergies Allergy Verified 02/14/18 10:35 Date of admission: 04/10/18 16:47 Primary care physician: Dion Whitman MD Discharging clinician: Vidal Kate Anticipated date of discharge: 04/11/18 - Constitutional Vitals: Temp Pulse Resp BP Pulse Ox 98.8 F 98 16 107/68 92 04/11/18 07:15 04/11/18 07:15 04/11/18 07:33 04/11/18 07:15 04/11/18 07:33 General appearance: Present: A&O X 3, no acute distress Exam: . - Neck Neck exam general surgery: Present: supple, trachea midline. Absent: ly mphadenopathy - Respiratory Respiratory exam: Present: CTAB, prolonged expiratory phase, wheezes. Absent: accessory muscle use, rales, rhonchi - Cardiovascular Cardiovascular exam: Present: RRR, +S1, +S2. Absent: diastolic murmur, gallop, rubs, systolic murmur - GI/Abdominal GI/Abdominal exam: Present: normal bowel sounds, soft, no peritoneal signs. Absent: distended, tenderness - Extremities Exam Extremities exam: Present: warm, radial pulses palpable and symmetrical. Absent: calf tenderness, cyanotic, pedal edema - Patient Status Disposition: Home, Self-Care Condition: Fair Functional capacity at discharge: independent ambulation Overall status at discharge: patient is progressing back to baseline - Discharge Instructions Instructions: Chronic Obstructive Pulmonary Disease (DC) Follow Up With: Dion Whitman MD [Primary Care Provider] - 04/18/18 2:00 pm (Please follow up as schedule...) - Diet and Activity Activity: increase activity as tolerated Diet: advance to your usual diet
[2018-04-11 11:00] VITALS: BP 125/74
== END 2018-04-11 12:13 | disposition home or self-care (01) | DRG 191 ==
LOC: 2ANU 12:07 → EMEROOARM 12:07 → 2ANU 17:28 → SUATTDRO 04-10 16:47
PROVIDERS: ADMIT Hospitalist; ATTEND Internal Medicine

== ENCOUNTER 2018-11-25 06:26 | Inpatient (IN) ==
[2018-11-25] MEDS ORDERED: methylPREDNISolone 125 MG/2 ML VIAL IVP ONE (06:41)
[2018-11-25] MEDS ORDERED: Ipratropium/Albuterol Neb 3 ML IH ONE (06:41)
[2018-11-25 06:58] LABS: Basophils % 0.2 %; Eosinophils # 0.1 K/mcL (0.0-0.6); Eosinophils % 0.5 %; Hematocrit 37.4 % (35.3-44.9); Hemoglobin 11.3 g/dL (11.5-15.4); Immature Granulocytes % 1.3 % (0-4); Lymphocytes % 12.3 %; Mean Corpuscular HGB Conc 30.2 g/dL (31.6-35.5); Mean Corpuscular Hemoglobin 30.1 pg (28.0-33.3); Mean Corpuscular Volume 99.7 fL (83.0-100.0); Monocytes % 5.7 %; Neutrophils # 13.3 K/mcL (1.6-8.9); Platelet Count 440 K/mcL (140-400); Red Blood Count 3.75 M/mcL (3.82-4.97); Red Cell Distribution Width 12.9 % (11.5-14.5)
[2018-11-25 06:59] LABS: White Blood Count 16.6 K/mcL (4.3-11.1)
[2018-11-25] MEDS ORDERED: Furosemide 40 MG/4 ML VIAL IVP ONE ×2 (07:09→09:12)
[2018-11-25 07:11] LABS: ABG Base Excess 9 mEq/L (-2 to 3); ABG HCO3 39 mEq/L (21-27); ABG Oxygen Saturation 95 % (95-98); ABG PCO2 82 mmHg (35-45); ABG PH 7.29 pH Units (7.32-7.45); ABG PO2 89 mmHg (85-104); ABG TCO2 41 mEq/L (20-26)
[2018-11-25 07:15] LABS: INR 0.9; Prothrombin Time 10.1 Seconds (9.4-12.1)
--- NOTE | 2018-11-25 07:16 | Emergency Department Note ---
Disposition Clinical Impression: COPD exacerbation Disposition: Admitted As Inpatient Condition: Fair Time of Disposition: 16:52 General Adult HPI - General Chief complaint: ED Shortness of Breath/Dyspnea Stated complaint: ALYSSA Time Seen by Provider: 11/25/18 06:37 Source: patient - History of Present Illness Pain Scale: 0 - Related Data Home Medications Medication Instructions Recorded Confirmed Ipratropium/Albuterol Neb [Duoneb] 3 ml IH QID PRN 08/12/15 11/25/18 Omeprazole [PriLOSEC] 20 mg PO DAILY 08/12/15 11/25/18 Atorvastatin [Lipitor] 40 mg PO HS 01/26/17 11/25/18 Metoprolol Succinate 100 mg PO DAILY 01/26/17 11/25/18 ALPRAZolam [Xanax 0.5 MG Tablet] 0.25 - 0.5 mg PO BID PRN 11/13/17 11/25/18 Losartan/Hydrochlorothiazide 1 tab PO DAILY 11/13/17 11/25/18 [Hyzaar 100-25 Tablet] Alendronate Sodium 70 mg PO ADLER 05/26/18 11/25/18 Cholecalciferol (Vitamin D3) 5,000 unit PO DAILY 06/25/18 11/25/18 [Dialyvite Vitamin D] Duloxetine HCl [Cymbalta] 60 mg PO DAILY 06/25/18 11/25/18 Magnesium Oxide 400 mg PO DAILY 06/25/18 11/25/18 Potassium Chloride 20 mg PO DAILY 06/25/18 11/25/18 Azithromycin [Zithromax] 250 mg PO MOWEFR 07/11/18 11/25/18 Arformoterol Tartrate [Brovana] 15 mcg IH BID 11/25/18 11/25/18 Budesonide Neb [Pulmicort Neb] 0.25 mg IH BIDR 11/25/18 11/25/18 Revefenacin [Yupelri] 175 mcg IH DAILY 11/25/18 11/25/18 Previous Rx's Medication Instructions Recorded Aspirin 81 mg PO DAILY tab.chew 04/06/16 Albuterol Sulfate [Proventil 2 puff IH Q6H PRN #1 inhaler 07/02/18 Inhaler] Torsemide [Demadex] 20 mg PO DAILY #30 tablet 07/02/18 Diltiazem CD (24hr) [Cardizem CD] 120 mg PO DAILY #30 cap.er.24h 07/29/18 Lidocaine Patch [Lidoderm 5% patch] 1 each TP DAILY #20 adh..patch 07/29/18 Oxygen 2 l .ROUTE AD #99 each 07/29/18 Rivaroxaban [Xarelto] 20 mg PO QPM #30 tablet 07/29/18 predniSONE [PredniSONE] 10 mg PO DAILY #30 tablet 07/29/18 Allergies Allergy/AdvReac Type Severity Reaction Status Date / Time No Known Allergies Allergy Verified 05/26/18 14:57 Past Medical History - Past Medical History Medical history: Reports: COPD, coronary artery disease, hyperlipidemia, hypertension, myocardial infarction Surgical history: Reports: hysterectomy, orthopedic, other Psychiatric history: Reports: anxiety PHARMACY INNOVATION ASSISTANT history: Reports: no PHARMACY INNOVATION ASSISTANT history - Social History Smoking Status: Current every day smoker Smokeless Tobacco Status: No Alcohol use: Reports: none Drug use: Reports: none Physical Exam - General General appearance: alert, in no apparent distress Course Vital Signs Temperature 97.9 F 11/25/18 06:34 Pulse Rate 115 11/25/18 06:34 Respiratory Rate 21 11/25/18 06:34 Blood Pressure 139/80 11/25/18 06:34 O2 Sat by Pulse Oximetry 96 11/25/18 06:34 Temperature 98.1 F 11/25/18 16:10 Pulse Rate 116 11/25/18 16:10 Respiratory Rate 18 11/25/18 16:10 Blood Pressure 121/78 11/25/18 16:10 O2 Sat by Pulse Oximetry 93 11/25/18 16:10 Oxygen Delivery Oxygen Delivery Bipap Medical Decision Making - Lab Data Result diagrams: 11/25/18 06:40 11/25/18 06:40 Lab Results 11/25/18 11/25/18 11/25/18 Range/Units 06:40 06:40 06:40 WBC 16.6 H D (4.3-11.1) K/mcL RBC 3.75 L (3.82-4.97) M/mcL Hgb 11.3 L (11.5-15.4) g/dL Hct 37.4 (35.3-44.9) % MCV 99.7 (83.0-100.0) fL MCH 30.1 (28.0-33.3) pg MCHC 30.2 L (31.6-35.5) g/dL RDW 12.9 (11.5-14.5) % Plt Count 440 H (140-400) K/mcL MPV 9.0 L (9.4-12.4) fL Immature Gran % 1.3 (0-4) % Seg Neutrophils % 80.0 % Lymphocytes % 12.3 % Monocytes % 5.7 % Eosinophils % 0.5 % Basophils % 0.2 % Neutrophils # 13.3 H (1.6-8.9) K/mcL Lymphocytes # 2.0 (0.6-4.6) K/mcL Monocytes # 1.0 (0.0-1.3) K/mcL Eosinophils # 0.1 (0.0-0.6) K/mcL Basophils # 0.0 (0.0-0.2) K/mcL PT 10.1 (9.4-12.1) Seconds INR 0.9 Sample Site ABG pH (7.32-7.45) pH Units ABG pCO2 (35-45) mmHg ABG pO2 (85-104) mmHg ABG HCO3 (21-27) mEq/L ABG Total CO2 (20-26) mEq/L ABG O2 Saturation (95-98) % ABG Base Excess (-2 to 3) mEq/L Rc Test O2 Delivery Device Inspired O2 (1-15=lpm [id number]=%) Sodium 135 L (136-145) mEq/L Potassium 4.6 (3.5-5.1) mEq/L Chloride 93 L (98-107) mEq/L Carbon Dioxide 37 H (23-29) mEq/L BUN 15 (8-23) mg/dL Creatinine 0.78 (0.60-1.20) mg/dL Est GFR ( Amer) > 60 (> 60) Est GFR (Non-Af Amer) > 60 (> 60) BUN/Creatinine Ratio 19 (6-26) Glucose 116 H (70-105) mg/dL Calculated Osmolality 282 (280-300) Lactic Acid (0.5-2.2) mmol/L Calcium 9.4 (8.6-10.3) mg/dL Troponin I < 0.03 (< 0.04) ng/mL B-Natriuretic Peptide (Less than 100) pg/mL Procalcitonin (0.00-0.15) ng/mL Urine Color (Yellow) Urine Clarity (Clear) Urine pH (5.0-8.0) pH Units Ur Specific [place] (1.010-1.025) Urine Protein (Neg-Trace) mg/dL Urine Glucose (UA) (Normal) mg/dL Urine Ketones (Negative) mg/dL Urine Blood (Negative) Urine Nitrite (Negative) Urine Bilirubin (Negative) Urine Urobilinogen (Normal) mg/dL Ur Leukocyte Esterase (Negative) Urine Microscopic RBC (0-3) per hpf Urine Microscopic WBC (0-3) per hpf Ur Squamous Epith Cells (None-Few) per lpf Urine Bacteria (None-Few) per hpf Hyaline Casts (None-Few) per lpf Ur Culture Indicated? (NO) 11/25/18 11/25/18 11/25/18 Range/Units 06:40 06:40 07:06 WBC (4.3-11.1) K/mcL RBC (3.82-4.97) M/mcL Hgb (11.5-15.4) g/dL Hct (35.3-44.9) % MCV (83.0-100.0) fL MCH (28.0-33.3) pg MCHC (31.6-35.5) g/dL RDW (11.5-14.5) % Plt Count (140-400) K/mcL MPV (9.4-12.4) fL Immature Gran % (0-4) % Seg Neutrophils % % Lymphocytes % % Monocytes % % Eosinophils % % Basophils % % Neutrophils # (1.6-8.9) K/mcL Lymphocytes # (0.6-4.6) K/mcL Monocytes # (0.0-1.3) K/mcL Eosinophils # (0.0-0.6) K/mcL Basophils # (0.0-0.2) K/mcL PT (9.4-12.1) Seconds INR Sample Site R Radial ABG pH 7.29 L (7.32-7.45) pH Units ABG pCO2 82 H* (35-45) mmHg ABG pO2 89 (85-104) mmHg ABG HCO3 39 H (21-27) mEq/L ABG Total CO2 41 H (20-26) mEq/L ABG O2 Saturation 95 (95-98) % ABG Base Excess 9 H (-2 to 3) mEq/L Rc Test Positive O2 Delivery Device Inspired O2 2.0 (1-15=lpm [id number]=%) Sodium (136-145) mEq/L Potassium (3.5-5.1) mEq/L Chloride (98-107) mEq/L Carbon Dioxide (23-29) mEq/L BUN (8-23) mg/dL Creatinine (0.60-1.20) mg/dL Est GFR ( Amer) (> 60) Est GFR (Non-Af Amer) (> 60) BUN/Creatinine Ratio (6-26) Glucose (70-105) mg/dL Calculated Osmolality (280-300) Lactic Acid (0.5-2.2) mmol/L Calcium (8.6-10.3) mg/dL Troponin I (< 0.04) ng/mL B-Natriuretic Peptide 106 H (Less than 100) pg/mL Procalcitonin 0.03 (0.00-0.15) ng/mL Urine Color (Yellow) Urine Clarity (Clear) Urine pH (5.0-8.0) pH Units Ur Specific [place] (1.010-1.025) Urine Protein (Neg-Trace) mg/dL Urine Glucose (UA) (Normal) mg/dL Urine Ketones (Negative) mg/dL Urine Blood (Negative) Urine Nitrite (Negative) Urine Bilirubin (Negative) Urine Urobilinogen (Normal) mg/dL Ur Leukocyte Esterase (Negative) Urine Microscopic RBC (0-3) per hpf Urine Microscopic WBC (0-3) per hpf Ur Squamous Epith Cells (None-Few) per lpf Urine Bacteria (None-Few) per hpf Hyaline Casts (None-Few) per lpf Ur Culture Indicated? (NO) 11/25/18 11/25/18 11/25/18 Range/Units 07:36 08:34 09:19 WBC (4.3-11.1) K/mcL RBC (3.82-4.97) M/mcL Hgb (11.5-15.4) g/dL Hct (35.3-44.9) % MCV (83.0-100.0) fL MCH (28.0-33.3) pg MCHC (31.6-35.5) g/dL RDW (11.5-14.5) % Plt Count (140-400) K/mcL MPV (9.4-12.4) fL Immature Gran % (0-4) % Seg Neutrophils % % Lymphocytes % % Monocytes % % Eosinophils % % Basophils % % Neutrophils # (1.6-8.9) K/mcL Lymphocytes # (0.6-4.6) K/mcL Monocytes # (0.0-1.3) K/mcL Eosinophils # (0.0-0.6) K/mcL Basophils # (0.0-0.2) K/mcL PT (9.4-12.1) Seconds INR Sample Site L Radial ABG pH 7.34 (7.32-7.45) pH Units ABG pCO2 69 H (35-45) mmHg ABG pO2 80 L (85-104) mmHg ABG HCO3 37 H (21-27) mEq/L ABG Total CO2 39 H (20-26) mEq/L ABG O2 Saturation 94 L (95-98) % ABG Base Excess 9 H (-2 to 3) mEq/L Rc Test N/A O2 Delivery Device BiPAP Inspired O2 35.0 (1-15=lpm [id number]=%) Sodium (136-145) mEq/L Potassium (3.5-5.1) mEq/L Chloride (98-107) mEq/L Carbon Dioxide (23-29) mEq/L BUN (8-23) mg/dL Creatinine (0.60-1.20) mg/dL Est GFR ( Amer) (> 60) Est GFR (Non-Af Amer) (> 60) BUN/Creatinine Ratio (6-26) Glucose (70-105) mg/dL Calculated Osmolality (280-300) Lactic Acid 0.9 (0.5-2.2) mmol/L Calcium (8.6-10.3) mg/dL Troponin I (< 0.04) ng/mL B-Natriuretic Peptide (Less than 100) pg/mL Procalcitonin (0.00-0.15) ng/mL Urine Color Yellow (Yellow) Urine Clarity Clear (Clear) Urine pH 6.0 (5.0-8.0) pH Units Ur Specific [place] 1.021 (1.010-1.025) Urine Protein 30 H (Neg-Trace) mg/dL Urine Glucose (UA) Normal (Normal) mg/dL Urine Ketones Negative (Negative) mg/dL Urine Blood Negative (Negative) Urine Nitrite Negative (Negative) Urine Bilirubin Negative (Negative) Urine Urobilinogen Normal (Normal) mg/dL Ur Leukocyte Esterase Negative (Negative) Urine Microscopic RBC 0-3 (0-3) per hpf Urine Microscopic WBC 0-3 (0-3) per hpf Ur Squamous Epith Cells Many H (None-Few) per lpf Urine Bacteria None Seen (None-Few) per hpf Hyaline Casts None Seen (None-Few) per lpf Ur Culture Indicated? NO (NO) 11/25/18 Range/Units 11:03 WBC (4.3-11.1) K/mcL RBC (3.82-4.97) M/mcL Hgb (11.5-15.4) g/dL Hct (35.3-44.9) % MCV (83.0-100.0) fL MCH (28.0-33.3) pg MCHC (31.6-35.5) g/dL RDW (11.5-14.5) % Plt Count (140-400) K/mcL MPV (9.4-12.4) fL Immature Gran % (0-4) % Seg Neutrophils % % Lymphocytes % % Monocytes % % Eosinophils % % Basophils % % Neutrophils # (1.6-8.9) K/mcL Lymphocytes # (0.6-4.6) K/mcL Monocytes # (0.0-1.3) K/mcL Eosinophils # (0.0-0.6) K/mcL Basophils # (0.0-0.2) K/mcL PT (9.4-12.1) Seconds INR Sample Site ABG pH (7.32-7.45) pH Units ABG pCO2 (35-45) mmHg ABG pO2 (85-104) mmHg ABG HCO3 (21-27) mEq/L ABG Total CO2 (20-26) mEq/L ABG O2 Saturation (95-98) % ABG Base Excess (-2 to 3) mEq/L Rc Test O2 Delivery Device Inspired O2 (1-15=lpm [id number]=%) Sodium (136-145) mEq/L Potassium (3.5-5.1) mEq/L Chloride (98-107) mEq/L Carbon Dioxide (23-29) mEq/L BUN (8-23) mg/dL Creatinine (0.60-1.20) mg/dL Est GFR ( Amer) (> 60) Est GFR (Non-Af Amer) (> 60) BUN/Creatinine Ratio (6-26) Glucose (70-105) mg/dL Calculated Osmolality (280-300) Lactic Acid (0.5-2.2) mmol/L Calcium (8.6-10.3) mg/dL Troponin I 0.03 (< 0.04) ng/mL B-Natriuretic Peptide (Less than 100) pg/mL Procalcitonin (0.00-0.15) ng/mL Urine Color (Yellow) Urine Clarity (Clear) Urine pH (5.0-8.0) pH Units Ur Specific [place] (1.010-1.025) Urine Protein (Neg-Trace) mg/dL Urine Glucose (UA) (Normal) mg/dL Urine Ketones (Negative) mg/dL Urine Blood (Negative) Urine Nitrite (Negative) Urine Bilirubin (Negative) Urine Urobilinogen (Normal) mg/dL Ur Leukocyte Esterase (Negative) Urine Microscopic RBC (0-3) per hpf Urine Microscopic WBC (0-3) per hpf Ur Squamous Epith Cells (None-Few) per lpf Urine Bacteria (None-Few) per hpf Hyaline Casts (None-Few) per lpf Ur Culture Indicated? (NO) Attestation Statement - Attestation Attestation: For this encounter, I have reviewed the RECREATION THERAPY TEACHER or PA documentation, treatment plan, and medical decision making; and I have had face to face time with this patient. [id number] time provided BiPAP therapy initiated due to dyspnea. ABG result reviewed by me. Patient presented with dyspnea without peripheral edema. [id number] time provided
[2018-11-25 07:23] LABS: BUN/Creatinine Ratio 19 (6-26); Blood Urea Nitrogen 15 mg/dL (8-23); Calcium 9.4 mg/dL (8.6-10.3); Carbon Dioxide 37 mEq/L (23-29); Chloride 93 mEq/L (98-107); Glucose 116 mg/dL (70-105); Osmolality,Calculated 282 (280-300); Potassium 4.6 mEq/L (3.5-5.1); Sodium 135 mEq/L (136-145); eGFR For African Americans > 60 (> 60); eGFR For Non-African Americans > 60 (> 60)
[2018-11-25 07:24] LABS: Troponin I < 0.03 ng/mL (< 0.04)
--- NOTE | 2018-11-25 07:49 | Emergency Department Note ---
Disposition Clinical Impression: COPD exacerbation Disposition: Admitted As Inpatient Condition: Fair Time of Disposition: 13:06 SOB HPI - General Chief Complaint: ED Shortness of Breath/Dyspnea Stated Complaint: ALYSSA Time Seen by Provider: 11/25/18 06:37 Source: patient, family Mode of arrival: private vehicle Limitations: no limitations Nursing Notes Reviewed: Yes Vital Signs Reviewed: Yes - History of Present Illness Pt Subjective Complaint: shortness of breath Onset (ago): week(s) (almost 2) Context: other (Hx of COPD, on 3L home O2) Severity: moderate, severe Consistency/Duration: constant, gradually worsening Improves with: oxygen, bronchodilators, upright position Worsens with: nothing Known history of: COPD, congestive heart failure, diabetes Associated symptoms: Reports: wheezing. Denies: chest pain, pain with inspiration, fever, cough, sputum production, orthopnea, parasthesias, syncope - Related Data Home Medications Medication Instructions Recorded Confirmed Omeprazole [PriLOSEC] 20 mg PO DAILY 08/12/15 11/25/18 Atorvastatin [Lipitor] 40 mg PO HS 01/26/17 11/25/18 Metoprolol Succinate 50 mg PO DAILY 01/26/17 11/25/18 Losartan/Hydrochlorothiazide 0.5 tab PO DAILY 11/13/17 11/25/18 [Hyzaar 100-25 Tablet] Cholecalciferol (Vitamin D3) 5,000 unit PO DAILY 06/25/18 11/25/18 [Dialyvite Vitamin D] Duloxetine HCl [Cymbalta] 60 mg PO DAILY 06/25/18 11/25/18 Magnesium Oxide 400 mg PO DAILY 06/25/18 11/25/18 Azithromycin [Zithromax] 250 mg PO MOWEFR 07/11/18 11/25/18 Arformoterol Tartrate [Brovana] 15 mcg IH BID 11/25/18 11/25/18 Lidocaine Patch [Lidoderm 5% patch] 1 patch TP DAILY PRN 11/25/18 11/25/18 Revefenacin [Yupelri] 175 mcg IH DAILY 11/25/18 11/25/18 dilTIAZem HCl [Cardizem] 60 mg PO DAILY 11/26/18 11/26/18 Previous Rx's Medication Instructions Recorded Aspirin 81 mg PO DAILY tab.chew 04/06/16 Albuterol Sulfate [Proventil 2 puff IH Q6H PRN #1 inhaler 07/02/18 Inhaler] Oxygen 2 l .ROUTE AD #99 each 07/29/18 Rivaroxaban [Xarelto] 20 mg PO QPM #30 tablet 07/29/18 ALPRAZolam [Xanax 0.5 MG Tablet] 0.5 mg PO BID PRN 7 Days #14 tablet 11/30/18 Budesonide Neb [Pulmicort Neb] 0.25 mg IH BIDR #60 inhsol 11/30/18 Ipratropium/Albuterol Neb [Duoneb] 3 ml IH QID PRN #100 inhsol 11/30/18 Nicotine Patch [Nicoderm] 21 mg TD DAILY #30 patch.td24 11/30/18 Potassium Chloride 20 mg PO QDPC #30 tab.er.prt 11/30/18 Torsemide [Demadex] 40 mg PO BID #60 tablet 11/30/18 predniSONE [PredniSONE] See Taper PO DAILY 9 Days #21 11/30/18 tablet Allergies Allergy/AdvReac Type Severity Reaction Status Date / Time No Known Allergies Allergy Verified 05/26/18 14:57 All systems ED: reviewed and negative except as stated. Review of Systems: As Per HPI Constitutional: Denies: fever, chills, weakness Eyes: Denies: vision change ENT ED: Denies: throat pain, congestion, dysphagia Cardiovascular: Reports: as per HPI, dyspnea on exertion, orthopnea, edema ("better today" per patient and family). Denies: chest pain, palpitations Respiratory: Reports: as per HPI, dyspnea, wheezes. Denies: cough, hemoptysis, stridor Gastrointestinal: Denies: abdominal pain, nausea, vomiting, diarrhea Genitourinary: Denies: urgency, dysuria, frequency, hematuria Musculoskeletal: Denies: back pain, neck pain, arthralgia Integumentary: Denies: rash, lesions Neurological: Denies: numbness, paresthesias, vertigo Allergic/Immunologic: Denies: facial swelling Past Medical History - Past Medical History Attestation: Yes The following information was validated with the patient. 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 Absent: scleral icterus, conjunctival injection, periorbital swelling - ENT ENT exam: normal oropharynx, mucous membranes moist - Neck Neck exam: Present: normal inspection, trachea midline. Absent: meningismus - Chest Chest inspection: Present: normal inspection, symmetric chest wall rise. Absent: tenderness - Respiratory Respiratory exam: Present: respiratory distress, wheezes. Absent: stridor - Cardiovascular Cardiovascular exam: Present: regular rate, normal rhythm - Abdominal Exam Abdominal exam: Present: soft, Non-Tender. Absent: distention, guarding, rebound, rigidity, ascites, mass, pulsatile mass - Extremities Exam Extremities exam: Present: full ROM, normal capillary refill, pedal edema (Bilateral 1+ pitting edema feet to mid [place]). Absent: tenderness, calf tenderness - Back Exam Back exam: Present: normal inspection - Neurological Exam Neurological exam: Present: alert, oriented X3, CN II-XII intact - Psychiatric Psychiatric exam: Present: normal affect, normal mood - Skin Skin exam: Present: warm, dry, intact, normal color Course Course Narrative: Patient to ED for eval of dyspnea x weeks. Saw PCP and had CXR done - read as normal - and was given Prednisone - 40mg daily x 4 days, no improvement. No chest pain, leg pain, fever/chills, malaise, weakness, syncope. Appears in mild respiratory distress but non-toxic. Afebrile, tahcy, normal BP. Breath sounds decreased and wheezing bilaterally. Labs - including ABG, EKG and CXR ordered. Duoneb also ordered. Per family, patient had O2sat of 76% this AM upon waking. They gave her 3 nebs and brought her here. Patient's ABG concerning - CO2 -89. BiPap ordered. Patient tolerating BiPap well. Sats 97% Cased discussed with the hospitalist. Patient has been accepted for admission. Heart rate transiently elevated with decreased sats and increased resp rate. Went to check on patient. She is sitting up on side of bed, had just gotten up to use the bed-side commode. States that she is feeling a little anxious b/c of the mask. Requests anxiety meds. This has been ordered. Patient's respiratory rate returned to normal, as did her heart rate. After approximately 20 minutes, while the hospitalist was at bedside however, her respiratory rate went back up into the 30s. She requests that the patient be seen by pulmonology. Dr. Cristina has been paged. Vital Signs Temperature 97.9 F 11/25/18 06:34 Pulse Rate 115 11/25/18 06:34 Respiratory Rate 21 11/25/18 06:34 Blood Pressure 139/80 11/25/18 06:34 O2 Sat by Pulse Oximetry 96 11/25/18 06:34 Temperature 97.8 F 11/30/18 11:15 Pulse Rate 107 11/30/18 11:15 Respiratory Rate 18 11/30/18 11:15 Blood Pressure 142/92 11/30/18 11:15 O2 Sat by Pulse Oximetry 99 11/30/18 11:15 Oxygen Delivery Oxygen Delivery Bipap Shortness of Breath/Dyspnea - Medical Records Medical records reviewed: Yes I reviewed the patient's medical records. - Lab Data Lab results reviewed: Yes I reviewed the patient's lab results. Result diagrams: 11/30/18 00:49 11/30/18 00:49 Lab Results 11/25/18 11/25/18 11/25/18 Range/Units 06:40 06:40 06:40 WBC 16.6 H D (4.3-11.1) K/mcL RBC 3.75 L (3.82-4.97) M/mcL Hgb 11.3 L (11.5-15.4) g/dL Hct 37.4 (35.3-44.9) % MCV 99.7 (83.0-100.0) fL MCH 30.1 (28.0-33.3) pg MCHC 30.2 L (31.6-35.5) g/dL RDW 12.9 (11.5-14.5) % Plt Count 440 H (140-400) K/mcL MPV 9.0 L (9.4-12.4) fL Immature Gran % 1.3 (0-4) % Seg Neutrophils % 80.0 % Lymphocytes % 12.3 % Monocytes % 5.7 % Eosinophils % 0.5 % Basophils % 0.2 % Neutrophils # 13.3 H (1.6-8.9) K/mcL Lymphocytes # 2.0 (0.6-4.6) K/mcL Monocytes # 1.0 (0.0-1.3) K/mcL Eosinophils # 0.1 (0.0-0.6) K/mcL Basophils # 0.0 (0.0-0.2) K/mcL PT 10.1 (9.4-12.1) Seconds INR 0.9 APTT (26.0-36.0) Seconds Sample Site ABG pH (7.32-7.45) pH Units ABG pCO2 (35-45) mmHg ABG pO2 (85-104) mmHg ABG HCO3 (21-27) mEq/L ABG Total CO2 (20-26) mEq/L ABG O2 Saturation (95-98) % ABG Base Excess (-2 to 3) mEq/L Rc Test O2 Delivery Device Inspired O2 (1-15=lpm er26-286=%) Sodium 135 L (136-145) mEq/L Potassium 4.6 (3.5-5.1) mEq/L Chloride 93 L (98-107) mEq/L Carbon Dioxide 37 H (23-29) mEq/L BUN 15 (8-23) mg/dL Creatinine 0.78 (0.60-1.20) mg/dL Est GFR ( Amer) > 60 (> 60) Est GFR (Non-Af Amer) > 60 (> 60) BUN/Creatinine Ratio 19 (6-26) Glucose 116 H (70-105) mg/dL POC Glucose (70-99) mg/dL Calculated Osmolality 282 (280-300) Lactic Acid (0.5-2.2) mmol/L Calcium 9.4 (8.6-10.3) mg/dL Phosphorus (2.7-4.5) mg/dL Magnesium (1.6-2.6) mg/dL Total Bilirubin (0.3-1.0) mg/dL AST (13-39) Units/L ALT (7-52) Units/L Alkaline Phosphatase (34-104) Units/L Troponin I < 0.03 (< 0.04) ng/mL B-Natriuretic Peptide (Less than 100) pg/mL Serum Total Protein (6.4-8.9) g/dL Albumin (3.5-5.7) g/dL Globulin (2.4-3.5) g/dL Albumin/Globulin Ratio (1.1-2.2) Triglycerides (< 150) mg/dL Cholesterol (< 200) mg/dL LDL Cholesterol, Calc (0-99) mg/dL VLDL Cholesterol, Calc (< 31) mg/dL HDL Cholesterol (40-59) mg/dL Cholesterol/HDL Ratio (0-4.9) Procalcitonin (0.00-0.15) ng/mL Urine Color (Yellow) Urine Clarity (Clear) Urine pH (5.0-8.0) pH Units Ur Specific [place] (1.010-1.025) Urine Protein (Neg-Trace) mg/dL Urine Glucose (UA) (Normal) mg/dL Urine Ketones (Negative) mg/dL Urine Blood (Negative) Urine Nitrite (Negative) Urine Bilirubin (Negative) Urine Urobilinogen (Normal) mg/dL Ur Leukocyte Esterase (Negative) Urine Microscopic RBC (0-3) per hpf Urine Microscopic WBC (0-3) per hpf Ur Squamous Epith Cells (None-Few) per lpf Urine Bacteria (None-Few) per hpf Hyaline Casts (None-Few) per lpf Ur Culture Indicated? (NO) Nasal Screen MRSA (PCR) (Not Detect) 11/25/18 11/25/18 11/25/18 Range/Units 06:40 06:40 07:06 WBC (4.3-11.1) K/mcL RBC (3.82-4.97) M/mcL Hgb (11.5-15.4) g/dL Hct (35.3-44.9) % MCV (83.0-100.0) fL MCH (28.0-33.3) pg MCHC (31.6-35.5) g/dL RDW (11.5-14.5) % Plt Count (140-400) K/mcL MPV (9.4-12.4) fL Immature Gran % (0-4) % Seg Neutrophils % % Lymphocytes % % Monocytes % % Eosinophils % % Basophils % % Neutrophils # (1.6-8.9) K/mcL Lymphocytes # (0.6-4.6) K/mcL Monocytes # (0.0-1.3) K/mcL Eosinophils # (0.0-0.6) K/mcL Basophils # (0.0-0.2) K/mcL PT (9.4-12.1) Seconds INR APTT (26.0-36.0) Seconds Sample Site R Radial ABG pH 7.29 L (7.32-7.45) pH Units ABG pCO2 82 H* (35-45) mmHg ABG pO2 89 (85-104) mmHg ABG HCO3 39 H (21-27) mEq/L ABG Total CO2 41 H (20-26) mEq/L ABG O2 Saturation 95 (95-98) % ABG Base Excess 9 H (-2 to 3) mEq/L Rc Test Positive O2 Delivery Device Inspired O2 2.0 (1-15=lpm [id number]=%) Sodium (136-145) mEq/L Potassium (3.5-5.1) mEq/L Chloride (98-107) mEq/L Carbon Dioxide (23-29) mEq/L BUN (8-23) mg/dL Creatinine (0.60-1.20) mg/dL Est GFR ( Amer) (> 60) Est GFR (Non-Af Amer) (> 60) BUN/Creatinine Ratio (6-26) Glucose (70-105) mg/dL POC Glucose (70-99) mg/dL Calculated Osmolality (280-300) Lactic Acid (0.5-2.2) mmol/L Calcium (8.6-10.3) mg/dL Phosphorus (2.7-4.5) mg/dL Magnesium (1.6-2.6) mg/dL Total Bilirubin (0.3-1.0) mg/dL AST (13-39) Units/L ALT (7-52) Units/L Alkaline Phosphatase (34-104) Units/L Troponin I (< 0.04) ng/mL B-Natriuretic Peptide 106 H (Less than 100) pg/mL Serum Total Protein (6.4-8.9) g/dL Albumin (3.5-5.7) g/dL Globulin (2.4-3.5) g/dL Albumin/Globulin Ratio (1.1-2.2) Triglycerides (< 150) mg/dL Cholesterol (< 200) mg/dL LDL Cholesterol, Calc (0-99) mg/dL VLDL Cholesterol, Calc (< 31) mg/dL HDL Cholesterol (40-59) mg/dL Cholesterol/HDL Ratio (0-4.9) Procalcitonin 0.03 (0.00-0.15) ng/mL Urine Color (Yellow) Urine Clarity (Clear) Urine pH (5.0-8.0) pH Units Ur Specific [place] (1.010-1.025) Urine Protein (Neg-Trace) mg/dL Urine Glucose (UA) (Normal) mg/dL Urine Ketones (Negative) mg/dL Urine Blood (Negative) Urine Nitrite (Negative) Urine Bilirubin (Negative) Urine Urobilinogen (Normal) mg/dL Ur Leukocyte Esterase (Negative) Urine Microscopic RBC (0-3) per hpf Urine Microscopic WBC (0-3) per hpf Ur Squamous Epith Cells (None-Few) per lpf Urine Bacteria (None-Few) per hpf Hyaline Casts (None-Few) per lpf Ur Culture Indicated? (NO) Nasal Screen MRSA (PCR) (Not Detect) 11/25/18 11/25/18 11/25/18 Range/Units 07:36 08:34 09:19 WBC (4.3-11.1) K/mcL RBC (3.82-4.97) M/mcL Hgb (11.5-15.4) g/dL Hct (35.3-44.9) % MCV (83.0-100.0) fL MCH (28.0-33.3) pg MCHC (31.6-35.5) g/dL RDW (11.5-14.5) % Plt Count (140-400) K/mcL MPV (9.4-12.4) fL Immature Gran % (0-4) % Seg Neutrophils % % Lymphocytes % % Monocytes % % Eosinophils % % Basophils % % Neutrophils # (1.6-8.9) K/mcL Lymphocytes # (0.6-4.6) K/mcL Monocytes # (0.0-1.3) K/mcL Eosinophils # (0.0-0.6) K/mcL Basophils # (0.0-0.2) K/mcL PT (9.4-12.1) Seconds INR APTT (26.0-36.0) Seconds Sample Site L Radial ABG pH 7.34 (7.32-7.45) pH Units ABG pCO2 69 H (35-45) mmHg ABG pO2 80 L (85-104) mmHg ABG HCO3 37 H (21-27) mEq/L ABG Total CO2 39 H (20-26) mEq/L ABG O2 Saturation 94 L (95-98) % ABG Base Excess 9 H (-2 to 3) mEq/L Rc Test N/A O2 Delivery Device BiPAP Inspired O2 35.0 (1-15=lpm [id number]=%) Sodium (136-145) mEq/L Potassium (3.5-5.1) mEq/L Chloride (98-107) mEq/L Carbon Dioxide (23-29) mEq/L BUN (8-23) mg/dL Creatinine (0.60-1.20) mg/dL Est GFR ( Amer) (> 60) Est GFR (Non-Af Amer) (> 60) BUN/Creatinine Ratio (6-26) Glucose (70-105) mg/dL POC Glucose (70-99) mg/dL Calculated Osmolality (280-300) Lactic Acid 0.9 (0.5-2.2) mmol/L Calcium (8.6-10.3) mg/dL Phosphorus (2.7-4.5) mg/dL Magnesium (1.6-2.6) mg/dL Total Bilirubin (0.3-1.0) mg/dL AST (13-39) Units/L ALT (7-52) Units/L Alkaline Phosphatase (34-104) Units/L Troponin I (< 0.04) ng/mL B-Natriuretic Peptide (Less than 100) pg/mL Serum Total Protein (6.4-8.9) g/dL Albumin (3.5-5.7) g/dL Globulin (2.4-3.5) g/dL Albumin/Globulin Ratio (1.1-2.2) Triglycerides (< 150) mg/dL Cholesterol (< 200) mg/dL LDL Cholesterol, Calc (0-99) mg/dL VLDL Cholesterol, Calc (< 31) mg/dL HDL Cholesterol (40-59) mg/dL Cholesterol/HDL Ratio (0-4.9) Procalcitonin (0.00-0.15) ng/mL Urine Color Yellow (Yellow) Urine Clarity Clear (Clear) Urine pH 6.0 (5.0-8.0) pH Units Ur Specific [place] 1.021 (1.010-1.025) Urine Protein 30 H (Neg-Trace) mg/dL Urine Glucose (UA) Normal (Normal) mg/dL Urine Ketones Negative (Negative) mg/dL Urine Blood Negative (Negative) Urine Nitrite Negative (Negative) Urine Bilirubin Negative (Negative) Urine Urobilinogen Normal (Normal) mg/dL Ur Leukocyte Esterase Negative (Negative) Urine Microscopic RBC 0-3 (0-3) per hpf Urine Microscopic WBC 0-3 (0-3) per hpf Ur Squamous Epith Cells Many H (None-Few) per lpf Urine Bacteria None Seen (None-Few) per hpf Hyaline Casts None Seen (None-Few) per lpf Ur Culture Indicated? NO (NO) Nasal Screen MRSA (PCR) (Not Detect) 11/25/18 11/25/18 11/25/18 Range/Units 11:03 17:04 17:48 WBC (4.3-11.1) K/mcL RBC (3.82-4.97) M/mcL Hgb (11.5-15.4) g/dL Hct (35.3-44.9) % MCV (83.0-100.0) fL MCH (28.0-33.3) pg MCHC (31.6-35.5) g/dL RDW (11.5-14.5) % Plt Count (140-400) K/mcL MPV (9.4-12.4) fL Immature Gran % (0-4) % Seg Neutrophils % % Lymphocytes % % Monocytes % % Eosinophils % % Basophils % % Neutrophils # (1.6-8.9) K/mcL Lymphocytes # (0.6-4.6) K/mcL Monocytes # (0.0-1.3) K/mcL Eosinophils # (0.0-0.6) K/mcL Basophils # (0.0-0.2) K/mcL PT (9.4-12.1) Seconds INR APTT (26.0-36.0) Seconds Sample Site ABG pH (7.32-7.45) pH Units ABG pCO2 (35-45) mmHg ABG pO2 (85-104) mmHg ABG HCO3 (21-27) mEq/L ABG Total CO2 (20-26) mEq/L ABG O2 Saturation (95-98) % ABG Base Excess (-2 to 3) mEq/L Rc Test O2 Delivery Device Inspired O2 (1-15=lpm [id number]=%) Sodium (136-145) mEq/L Potassium (3.5-5.1) mEq/L Chloride (98-107) mEq/L Carbon Dioxide (23-29) mEq/L BUN (8-23) mg/dL Creatinine (0.60-1.20) mg/dL Est GFR ( Amer) (> 60) Est GFR (Non-Af Amer) (> 60) BUN/Creatinine Ratio (6-26) Glucose (70-105) mg/dL POC Glucose 197 H (70-99) mg/dL Calculated Osmolality (280-300) Lactic Acid (0.5-2.2) mmol/L Calcium (8.6-10.3) mg/dL Phosphorus (2.7-4.5) mg/dL Magnesium (1.6-2.6) mg/dL Total Bilirubin (0.3-1.0) mg/dL AST (13-39) Units/L ALT (7-52) Units/L Alkaline Phosphatase (34-104) Units/L Troponin I 0.03 0.03 (< 0.04) ng/mL B-Natriuretic Peptide (Less than 100) pg/mL Serum Total Protein (6.4-8.9) g/dL Albumin (3.5-5.7) g/dL Globulin (2.4-3.5) g/dL Albumin/Globulin Ratio (1.1-2.2) Triglycerides (< 150) mg/dL Cholesterol (< 200) mg/dL LDL Cholesterol, Calc (0-99) mg/dL VLDL Cholesterol, Calc (< 31) mg/dL HDL Cholesterol (40-59) mg/dL Cholesterol/HDL Ratio (0-4.9) Procalcitonin (0.00-0.15) ng/mL Urine Color (Yellow) Urine Clarity (Clear) Urine pH (5.0-8.0) pH Units Ur Specific [place] (1.010-1.025) Urine Protein (Neg-Trace) mg/dL Urine Glucose (UA) (Normal) mg/dL Urine Ketones (Negative) mg/dL Urine Blood (Negative) Urine Nitrite (Negative) Urine Bilirubin (Negative) Urine Urobilinogen (Normal) mg/dL Ur Leukocyte Esterase (Negative) Urine Microscopic RBC (0-3) per hpf Urine Microscopic WBC (0-3) per hpf Ur Squamous Epith Cells (None-Few) per lpf Urine Bacteria (None-Few) per hpf Hyaline Casts (None-Few) per lpf Ur Culture Indicated? (NO) Nasal Screen MRSA (PCR) (Not Detect) 11/25/18 11/25/18 11/26/18 Range/Units 21:30 23:05 00:22 WBC (4.3-11.1) K/mcL RBC (3.82-4.97) M/mcL Hgb (11.5-15.4) g/dL Hct (35.3-44.9) % MCV (83.0-100.0) fL MCH (28.0-33.3) pg MCHC (31.6-35.5) g/dL RDW (11.5-14.5) % Plt Count (140-400) K/mcL MPV (9.4-12.4) fL Immature Gran % (0-4) % Seg Neutrophils % % Lymphocytes % % Monocytes % % Eosinophils % % Basophils % % Neutrophils # (1.6-8.9) K/mcL Lymphocytes # (0.6-4.6) K/mcL Monocytes # (0.0-1.3) K/mcL Eosinophils # (0.0-0.6) K/mcL Basophils # (0.0-0.2) K/mcL PT (9.4-12.1) Seconds INR APTT (26.0-36.0) Seconds Sample Site ABG pH (7.32-7.45) pH Units ABG pCO2 (35-45) mmHg ABG pO2 (85-104) mmHg ABG HCO3 (21-27) mEq/L ABG Total CO2 (20-26) mEq/L ABG O2 Saturation (95-98) % ABG Base Excess (-2 to 3) mEq/L Rc Test O2 Delivery Device Inspired O2 (1-15=lpm eg14-898=%) Sodium (136-145) mEq/L Potassium (3.5-5.1) mEq/L Chloride (98-107) mEq/L Carbon Dioxide (23-29) mEq/L BUN (8-23) mg/dL Creatinine (0.60-1.20) mg/dL Est GFR ( Amer) (> 60) Est GFR (Non-Af Amer) (> 60) BUN/Creatinine Ratio (6-26) Glucose (70-105) mg/dL POC Glucose 241 H (70-99) mg/dL Calculated Osmolality (280-300) Lactic Acid (0.5-2.2) mmol/L Calcium (8.6-10.3) mg/dL Phosphorus (2.7-4.5) mg/dL Magnesium (1.6-2.6) mg/dL Total Bilirubin (0.3-1.0) mg/dL AST (13-39) Units/L ALT (7-52) Units/L Alkaline Phosphatase (34-104) Units/L Troponin I 0.03 (< 0.04) ng/mL B-Natriuretic Peptide (Less than 100) pg/mL Serum Total Protein (6.4-8.9) g/dL Albumin (3.5-5.7) g/dL Globulin (2.4-3.5) g/dL Albumin/Globulin Ratio (1.1-2.2) Triglycerides (< 150) mg/dL Cholesterol (< 200) mg/dL LDL Cholesterol, Calc (0-99) mg/dL VLDL Cholesterol, Calc (< 31) mg/dL HDL Cholesterol (40-59) mg/dL Cholesterol/HDL Ratio (0-4.9) Procalcitonin (0.00-0.15) ng/mL Urine Color (Yellow) Urine Clarity (Clear) Urine pH (5.0-8.0) pH Units Ur Specific [place] (1.010-1.025) Urine Protein (Neg-Trace) mg/dL Urine Glucose (UA) (Normal) mg/dL Urine Ketones (Negative) mg/dL Urine Blood (Negative) Urine Nitrite (Negative) Urine Bilirubin (Negative) Urine Urobilinogen (Normal) mg/dL Ur Leukocyte Esterase (Negative) Urine Microscopic RBC (0-3) per hpf Urine Microscopic WBC (0-3) per hpf Ur Squamous Epith Cells (None-Few) per lpf Urine Bacteria (None-Few) per hpf Hyaline Casts (None-Few) per lpf Ur Culture Indicated? (NO) Nasal Screen MRSA (PCR) DETECTED A (Not Detect) 11/26/18 11/26/18 11/26/18 Range/Units 05:23 05:23 05:23 WBC 14.9 H (4.3-11.1) K/mcL RBC 3.68 L (3.82-4.97) M/mcL Hgb 11.2 L (11.5-15.4) g/dL Hct 36.4 (35.3-44.9) % MCV 98.9 (83.0-100.0) fL MCH 30.4 (28.0-33.3) pg MCHC 30.8 L (31.6-35.5) g/dL RDW 12.8 (11.5-14.5) % Plt Count 512 H (140-400) K/mcL MPV 9.4 (9.4-12.4) fL Immature Gran % 1.1 (0-4) % Seg Neutrophils % 90.1 % Lymphocytes % 6.2 % Monocytes % 2.5 % Eosinophils % 0.0 % Basophils % 0.1 % Neutrophils # 13.4 H (1.6-8.9) K/mcL Lymphocytes # 0.9 (0.6-4.6) K/mcL Monocytes # 0.4 (0.0-1.3) K/mcL Eosinophils # 0.0 (0.0-0.6) K/mcL Basophils # 0.0 (0.0-0.2) K/mcL PT 10.5 (9.4-12.1) Seconds INR 0.9 APTT 32.9 (26.0-36.0) Seconds Sample Site ABG pH (7.32-7.45) pH Units ABG pCO2 (35-45) mmHg ABG pO2 (85-104) mmHg ABG HCO3 (21-27) mEq/L ABG Total CO2 (20-26) mEq/L ABG O2 Saturation (95-98) % ABG Base Excess (-2 to 3) mEq/L Rc Test O2 Delivery Device Inspired O2 (1-15=lpm tr20-061=%) Sodium 136 (136-145) mEq/L Potassium 4.1 (3.5-5.1) mEq/L Chloride 91 L (98-107) mEq/L Carbon Dioxide 36 H (23-29) mEq/L BUN 17 (8-23) mg/dL Creatinine 0.88 (0.60-1.20) mg/dL Est GFR ( Amer) > 60 (> 60) Est GFR (Non-Af Amer) > 60 (> 60) BUN/Creatinine Ratio 19 (6-26) Glucose 169 H (70-105) mg/dL POC Glucose (70-99) mg/dL Calculated Osmolality 287 (280-300) Lactic Acid (0.5-2.2) mmol/L Calcium 9.3 (8.6-10.3) mg/dL Phosphorus 4.6 H (2.7-4.5) mg/dL Magnesium 2.1 (1.6-2.6) mg/dL Total Bilirubin 0.2 L (0.3-1.0) mg/dL AST 11 L (13-39) Units/L ALT 18 (7-52) Units/L Alkaline Phosphatase 128 H (34-104) Units/L Troponin I (< 0.04) ng/mL B-Natriuretic Peptide (Less than 100) pg/mL Serum Total Protein 6.6 (6.4-8.9) g/dL Albumin 3.8 (3.5-5.7) g/dL Globulin 2.8 (2.4-3.5) g/dL Albumin/Globulin Ratio 1.4 (1.1-2.2) Triglycerides 75 (< 150) mg/dL Cholesterol 173 (< 200) mg/dL LDL Cholesterol, Calc 77 (0-99) mg/dL VLDL Cholesterol, Calc 15 (< 31) mg/dL HDL Cholesterol 81 H (40-59) mg/dL Cholesterol/HDL Ratio 2.1 (0-4.9) Procalcitonin (0.00-0.15) ng/mL Urine Color (Yellow) Urine Clarity (Clear) Urine pH (5.0-8.0) pH Units Ur Specific [place] (1.010-1.025) Urine Protein (Neg-Trace) mg/dL Urine Glucose (UA) (Normal) mg/dL Urine Ketones (Negative) mg/dL Urine Blood (Negative) Urine Nitrite (Negative) Urine Bilirubin (Negative) Urine Urobilinogen (Normal) mg/dL Ur Leukocyte Esterase (Negative) Urine Microscopic RBC (0-3) per hpf Urine Microscopic WBC (0-3) per hpf Ur Squamous Epith Cells (None-Few) per lpf Urine Bacteria (None-Few) per hpf Hyaline Casts (None-Few) per lpf Ur Culture Indicated? (NO) Nasal Screen MRSA (PCR) (Not Detect) 11/26/18 11/26/18 11/27/18 Range/Units 05:34 11:31 01:54 WBC 19.9 H (4.3-11.1) K/mcL RBC 3.83 (3.82-4.97) M/mcL Hgb 11.5 (11.5-15.4) g/dL Hct 36.7 (35.3-44.9) % MCV 95.8 (83.0-100.0) fL MCH 30.0 (28.0-33.3) pg MCHC 31.3 L (31.6-35.5) g/dL RDW 12.8 (11.5-14.5) % Plt Count 511 H (140-400) K/mcL MPV 9.0 L (9.4-12.4) fL Immature Gran % 1.1 (0-4) % Seg Neutrophils % 90.0 % Lymphocytes % 4.5 % Monocytes % 4.2 % Eosinophils % 0.0 % Basophils % 0.2 % Neutrophils # 17.9 H (1.6-8.9) K/mcL Lymphocytes # 0.9 (0.6-4.6) K/mcL Monocytes # 0.8 (0.0-1.3) K/mcL Eosinophils # 0.0 (0.0-0.6) K/mcL Basophils # 0.0 (0.0-0.2) K/mcL PT (9.4-12.1) Seconds INR APTT (26.0-36.0) Seconds Sample Site ABG pH (7.32-7.45) pH Units ABG pCO2 (35-45) mmHg ABG pO2 (85-104) mmHg ABG HCO3 (21-27) mEq/L ABG Total CO2 (20-26) mEq/L ABG O2 Saturation (95-98) % ABG Base Excess (-2 to 3) mEq/L Rc Test O2 Delivery Device Inspired O2 (1-15=lpm [id number]=%) Sodium (136-145) mEq/L Potassium (3.5-5.1) mEq/L Chloride (98-107) mEq/L Carbon Dioxide (23-29) mEq/L BUN (8-23) mg/dL Creatinine (0.60-1.20) mg/dL Est GFR ( Amer) (> 60) Est GFR (Non-Af Amer) (> 60) BUN/Creatinine Ratio (6-26) Glucose (70-105) mg/dL POC Glucose 173 H 168 H (70-99) mg/dL Calculated Osmolality (280-300) Lactic Acid (0.5-2.2) mmol/L Calcium (8.6-10.3) mg/dL Phosphorus (2.7-4.5) mg/dL Magnesium (1.6-2.6) mg/dL Total Bilirubin (0.3-1.0) mg/dL AST (13-39) Units/L ALT (7-52) Units/L Alkaline Phosphatase (34-104) Units/L Troponin I (< 0.04) ng/mL B-Natriuretic Peptide (Less than 100) pg/mL Serum Total Protein (6.4-8.9) g/dL Albumin (3.5-5.7) g/dL Globulin (2.4-3.5) g/dL Albumin/Globulin Ratio (1.1-2.2) Triglycerides (< 150) mg/dL Cholesterol (< 200) mg/dL LDL Cholesterol, Calc (0-99) mg/dL VLDL Cholesterol, Calc (< 31) mg/dL HDL Cholesterol (40-59) mg/dL Cholesterol/HDL Ratio (0-4.9) Procalcitonin (0.00-0.15) ng/mL Urine Color (Yellow) Urine Clarity (Clear) Urine pH (5.0-8.0) pH Units Ur Specific [place] (1.010-1.025) Urine Protein (Neg-Trace) mg/dL Urine Glucose (UA) (Normal) mg/dL Urine Ketones (Negative) mg/dL Urine Blood (Negative) Urine Nitrite (Negative) Urine Bilirubin (Negative) Urine Urobilinogen (Normal) mg/dL Ur Leukocyte Esterase (Negative) Urine Microscopic RBC (0-3) per hpf Urine Microscopic WBC (0-3) per hpf Ur Squamous Epith Cells (None-Few) per lpf Urine Bacteria (None-Few) per hpf Hyaline Casts (None-Few) per lpf Ur Culture Indicated? (NO) Nasal Screen MRSA (PCR) (Not Detect) 11/27/18 Range/Units 01:54 WBC (4.3-11.1) K/mcL RBC (3.82-4.97) M/mcL Hgb (11.5-15.4) g/dL Hct (35.3-44.9) % MCV (83.0-100.0) fL MCH (28.0-33.3) pg MCHC (31.6-35.5) g/dL RDW (11.5-14.5) % Plt Count (140-400) K/mcL MPV (9.4-12.4) fL Immature Gran % (0-4) % Seg Neutrophils % % Lymphocytes % % Monocytes % % Eosinophils % % Basophils % % Neutrophils # (1.6-8.9) K/mcL Lymphocytes # (0.6-4.6) K/mcL Monocytes # (0.0-1.3) K/mcL Eosinophils # (0.0-0.6) K/mcL Basophils # (0.0-0.2) K/mcL PT (9.4-12.1) Seconds INR APTT (26.0-36.0) Seconds Sample Site ABG pH (7.32-7.45) pH Units ABG pCO2 (35-45) mmHg ABG pO2 (85-104) mmHg ABG HCO3 (21-27) mEq/L ABG Total CO2 (20-26) mEq/L ABG O2 Saturation (95-98) % ABG Base Excess (-2 to 3) mEq/L Rc Test O2 Delivery Device Inspired O2 (1-15=lpm [id number]=%) Sodium 132 L (136-145) mEq/L Potassium 3.9 (3.5-5.1) mEq/L Chloride 89 L (98-107) mEq/L Carbon Dioxide 31 H (23-29) mEq/L BUN 29 H (8-23) mg/dL Creatinine 1.34 H (0.60-1.20) mg/dL Est GFR ( Amer) 48 L (> 60) Est GFR (Non-Af Amer) 39 L (> 60) BUN/Creatinine Ratio 22 (6-26) Glucose 174 H (70-105) mg/dL POC Glucose (70-99) mg/dL Calculated Osmolality 284 (280-300) Lactic Acid (0.5-2.2) mmol/L Calcium 9.2 (8.6-10.3) mg/dL Phosphorus 4.6 H (2.7-4.5) mg/dL Magnesium 2.2 (1.6-2.6) mg/dL Total Bilirubin (0.3-1.0) mg/dL AST (13-39) Units/L ALT (7-52) Units/L Alkaline Phosphatase (34-104) Units/L Troponin I (< 0.04) ng/mL B-Natriuretic Peptide (Less than 100) pg/mL Serum Total Protein (6.4-8.9) g/dL Albumin (3.5-5.7) g/dL Globulin (2.4-3.5) g/dL Albumin/Globulin Ratio (1.1-2.2) Triglycerides (< 150) mg/dL Cholesterol (< 200) mg/dL LDL Cholesterol, Calc (0-99) mg/dL VLDL Cholesterol, Calc (< 31) mg/dL HDL Cholesterol (40-59) mg/dL Cholesterol/HDL Ratio (0-4.9) Procalcitonin (0.00-0.15) ng/mL Urine Color (Yellow) Urine Clarity (Clear) Urine pH (5.0-8.0) pH Units Ur Specific [place] (1.010-1.025) Urine Protein (Neg-Trace) mg/dL Urine Glucose (UA) (Normal) mg/dL Urine Ketones (Negative) mg/dL Urine Blood (Negative) Urine Nitrite (Negative) Urine Bilirubin (Negative) Urine Urobilinogen (Normal) mg/dL Ur Leukocyte Esterase (Negative) Urine Microscopic RBC (0-3) per hpf Urine Microscopic WBC (0-3) per hpf Ur Squamous Epith Cells (None-Few) per lpf Urine Bacteria (None-Few) per hpf Hyaline Casts (None-Few) per lpf Ur Culture Indicated? (NO) Nasal Screen MRSA (PCR) (Not Detect) - Radiology Data Radiology results reviewed: Yes I reviewed the patient's radiology results. Chest X-Ray 11/25/18 06:41 IMPRESSION: No acute cardiopulmonary disease or significant interval change from prior study 11/21/2018. D/ / Jack Willoughby / Jack Willoughby Interpreting Provider: Jack Willoughby - EKG Data EKG attestation: Yes I reviewed and interpreted this EKG. EKG shows normal: Reports: sinus rhythm Rate: Reports: tachycardia Rhythm: Reports: NSR QRS morphology: Reports: J-point elevation When compared to previous EKG there are: no significant changes Interpretation: Reports: unchanged when compared to prior tracing (date) (), nonspecific ST-T wave changes
[2018-11-25] MEDS ORDERED: *HR* LORazepam 2 MG/ML VIAL IVP ONE (08:24)
[2018-11-25 08:44] LABS: Bilirubin,Urine Negative (Negative); Blood,Urine Negative (Negative); Clarity,Urine Clear (Clear); Color,Urine Yellow (Yellow); Glucose,Urine (UA) Normal (Normal); Ketones,Urine Negative (Negative); Leukocyte Esterase,Urine Negative (Negative); Nitrite,Urine Negative (Negative); Protein,Urine 30 mg/dL (Neg-Trace); Specific Gravity,Urine 1.021 (1.010-1.025); Urobilinogen,Urine Normal (Normal)
[2018-11-25 08:47] LABS: Bacteria,Urine None Seen per hpf (None-Few); Hyaline Casts,Urine None Seen per lpf (None-Few); RBC,Urine 0-3 per hpf (0-3); Squamous Epithelial Cell,Urine Many per lpf (None-Few); WBC,Urine 0-3 per hpf (0-3)
--- NOTE | 2018-11-25 09:04 | Pulmonology Consult Note ---
<Tanner Perera W - Last Filed: 11/25/18 15:25> Date of Encounter: 11/25/18 Medications and Allergies Ipratropium/Albuterol Neb [Duoneb] 3 ml IH QID PRN 08/12/15 [History] Omeprazole [PriLOSEC] 20 mg PO DAILY 08/12/15 [History] Aspirin 81 mg PO DAILY tab.chew 04/06/16 [Rx] Atorvastatin [Lipitor] 40 mg PO HS 01/26/17 [History] Metoprolol Succinate 100 mg PO DAILY 01/26/17 [History] ALPRAZolam [Xanax 0.5 MG Tablet] 0.25 - 0.5 mg PO BID PRN 11/13/17 [History] Losartan/Hydrochlorothiazide [Hyzaar 100-25 Tablet] 1 tab PO DAILY 11/13/17 [History] Alendronate Sodium 70 mg PO ADLER 05/26/18 [History] Cholecalciferol (Vitamin D3) [Dialyvite Vitamin D] 5,000 unit PO DAILY 06/25/18 [History] Duloxetine HCl [Cymbalta] 60 mg PO DAILY 06/25/18 [History] Magnesium Oxide 400 mg PO DAILY 06/25/18 [History] Potassium Chloride 20 mg PO DAILY 06/25/18 [History] Albuterol Sulfate [Proventil Inhaler] 2 puff IH Q6H PRN #1 inhaler 07/02/18 [Rx] Torsemide [Demadex] 20 mg PO DAILY #30 tablet 07/02/18 [Rx] Azithromycin [Zithromax] 250 mg PO MOWEFR 07/11/18 [History] Diltiazem CD (24hr) [Cardizem CD] 120 mg PO DAILY #30 cap.er.24h 07/29/18 [Rx] Lidocaine Patch [Lidoderm 5% patch] 1 each TP DAILY #20 adh..patch 07/29/18 [Rx] Oxygen 2 l .ROUTE AD #99 each 07/29/18 [Rx] Rivaroxaban [Xarelto] 20 mg PO QPM #30 tablet 07/29/18 [Rx] predniSONE [PredniSONE] 10 mg PO DAILY #30 tablet 07/29/18 [Rx] Arformoterol Tartrate [Brovana] 15 mcg IH BID 11/25/18 [History] Budesonide Neb [Pulmicort Neb] 0.25 mg IH BIDR 11/25/18 [History] Revefenacin [Yupelri] 175 mcg IH DAILY 11/25/18 [History] Allergy/AdvReac Type Severity Reaction Status Date / Time No Known Allergies Allergy Verified 05/26/18 14:57 All Systems: The remainder of the systems were reviewed and are negative Physical Examination Vital Signs: Vital Signs, Last 4 Hours Temp Pulse Resp BP Pulse Ox 11/25/18 15:06 110 11/25/18 12:35 115 11/25/18 12:19 98.3 F 125 20 112/80 94 11/25/18 11:30 116 25 102/66 97 Results - Laboratory Findings CBC and BMP: 11/25/18 06:40 11/25/18 06:40 ABG ABG pH 7.34 pH Units (7.32-7.45) 11/25/18 09:19 ABG pCO2 69 mmHg (35-45) H 11/25/18 09:19 ABG pO2 80 mmHg (85-104) L 11/25/18 09:19 ABG O2 Saturation 94 % (95-98) L 11/25/18 09:19 PT/INR, D-dimer PT 10.1 Seconds (9.4-12.1) 11/25/18 06:40 Abnormal lab findings: Abnormal lab results WBC 16.6 K/mcL (4.3-11.1) H D 11/25/18 06:40 RBC 3.75 M/mcL (3.82-4.97) L 11/25/18 06:40 Hgb 11.3 g/dL (11.5-15.4) L 11/25/18 06:40 MCHC 30.2 g/dL (31.6-35.5) L 11/25/18 06:40 Plt Count 440 K/mcL (140-400) H 11/25/18 06:40 MPV 9.0 fL (9.4-12.4) L 11/25/18 06:40 Neutrophils # 13.3 K/mcL (1.6-8.9) H 11/25/18 06:40 ABG pH 7.29 pH Units (7.32-7.45) L 11/25/18 07:06 ABG pCO2 69 mmHg (35-45) H 11/25/18 09:19 ABG pO2 80 mmHg (85-104) L 11/25/18 09:19 ABG HCO3 37 mEq/L (21-27) H 11/25/18 09:19 ABG Total CO2 39 mEq/L (20-26) H 11/25/18 09:19 ABG O2 Saturation 94 % (95-98) L 11/25/18 09:19 ABG Base Excess 9 mEq/L (-2 to 3) H 11/25/18 09:19 Sodium 135 mEq/L (136-145) L 11/25/18 06:40 Chloride 93 mEq/L (98-107) L 11/25/18 06:40 Carbon Dioxide 37 mEq/L (23-29) H 11/25/18 06:40 Glucose 116 mg/dL (70-105) H 11/25/18 06:40 B-Natriuretic Peptide 106 pg/mL (Less than 100) H 11/25/18 06:40 Urine Protein 30 mg/dL (Neg-Trace) H 11/25/18 08:34 Ur Squamous Epith Cells Many per lpf (None-Few) H 11/25/18 08:34 - Microbiology Findings Microbiology Findings: Microbiology, Last 48 Hours 11/25/18 07:36 Blood Culture - Preliminary Peripheral Venipuncture Culture is incubating and being continuously monitored for growth. Final report to follow. 11/25/18 07:41 Blood Culture - Preliminary Peripheral Venipuncture Culture is incubating and being continuously monitored for growth. Final report to follow. - Clinical Findings Intake & Output: Intake & Output 11/24/18 11/25/18 11/25/18 23:59 07:59 15:59 Intake Total 250 / 250 Balance 250 / 250 Weight 91.626 kg 96.1 kg Consult Discharge Plan - Plan Referrals: Bigg Sheridan [Primary Care Provider] - - Attending Attestation I examined this patient and my medical decision-making was reviewed with the Resident Physician. I agree with the documented findings, disposition and treatment plan as described except to the extent set forth below. We independently had [id number] contact with the patient Patient seen and examined at bedside Labs, radiology, chart personally reviewed. Impression/Recs: Acute on chronic hypoxic hypercapnic respiratory failure Very Severe COPD with acute exacerbation Acute on chronic HFpEF Possible pneumonia Agree with noninvasive ventilation - repeat ABG encouraging - okay for her shay aks of BiPAP to nasal cannula as tolerated by mental status and respiratory status- goal oxygen saturation should be greater than 88% around 92%. Given improvement over last few hours of BiPAP and supportive care patient can be safely triaged to stepdown unit for further management pulmonary will continue to follow the patient Agree with the aggressive bronchodilators including 2 hour bronchodilators with hourly albuterol as needed Release would schedule Microlite antibiotics given leukocytosis noted cannot be fully excluded recommend checking pro-calcitonin and MRSA nasal swab would have low threshold for initiation of broad-spectrum antibiotics for pneumonia given the clinical presentation. Thank you for the consultation <Ricardo Wilkes - Last Filed: 11/25/18 17:17> Date of Encounter: 11/25/18 Time of Encounter: 09:00 Assessment and Plan (1) Acute on chronic respiratory failure with hypoxia and hypercapnia Current Visit: No Status: Chronic Patient has a history of severe COPD, follows with the [facility]. Presents with several week history of worsening shortness of breath, refractory to outpatient treatment by PCP. Was started on prednisone 40 with minimal improvement. Family brought patient in secondary to decreased oxygen saturations this morning, 76% prior to admission. Family did give the patient 3 rounds of DuoNeb at that time and promptly brought her to the ED. Patient does have a significant history of tobacco abuse still has recently quit smoking. Initial ABGs ED were concerning for hypercapnic respiratory failure, PCO2 89 with a respiratory acidosis and metabolic cessation. However repeat ABGs post BiPAP initiation were promising, PCO2 down to 69. Patient's mental status did improve and was more alert and talkative secondary to BiPAP. Patient did not require intubation/ICU admission, is stable for transfer to stepdown unit. Plan: -MRSA swab, pro-calcitonin, strep pneumo and legionella urinary antigens ordered to assess infectious etiology -Continuous BiPAP for now with periodic breaks as tolerated -Recommend continue IV diuresis -Continue IV steroids, Solu-Medrol 40 mg every 6 -Continue aggressive bronchodilator therapy, DuoNebs Q4hrs, albuterol Q2hrs PRN -Continue with his azithromycin for now for anti-inflammatory effect -Chest x-ray clear, no evidence of focal consolidation or pulmonary infiltrates however recommend low threshold for initiating broad-spectrum antibiotics if clinical picture does not improve (2) Acute exacerbation of chronic obstructive airways disease Current Visit: No Status: Acute Plan as above (3) Leukocytosis Current Visit: No Status: Acute Suspect reactive secondary to recent steroid usage. However patient does have tachypnea and tachycardia. Low suspicion for pneumonia at this time given normal chest x-ray. We will initiate broad-spectrum antibiotics and begin IV fluids if suspicion for pneumonia rises, or clinical picture deteriorates, or if infectious workup comes back positive. Qualifiers: Leukocytosis type: leukemoid reaction Qualified Code(s): D72.823 - Leukemoid reaction (4) Heart failure, diastolic, with acute decompensation Current Visit: Yes Status: Acute Patient does have peripheral edema on exam with multiple recent admissions for acute decompensated diastolic heart failure. Recommend aggressive IV diuresis as tolerable. History of Present Illness Consult date: 11/25/18 Reason for consult: dyspnea Chief complaint: Shortness of Breath History of present illness: Patient is 68-year-old female with a past medical history of HFpEF, COPD, chronic hypoxic and hypercapnic respiratory failure, CAD, HLD, HTN, AL who f esthers with the [facility] and presents to the emergency department with complaint of progressively worsening dyspnea over several weeks. Patient saw her PCP , chest x-ray read as normal, discharged with prednisone 40 mg. Patient reported minimal improvement secondary to this and stated that she was getting progressively more short of breath. Patient's family's states that her oxygen saturations were 76% this morning, consequently they gave her 3 DuoNeb's and immediately brought her to the emergency department for evaluation. Patient denied any recent fever/chills, increasing sputum production, peripheral edema, chest pain, nausea/vomiting, palpitations, weakness. In the emergency department, patient was tachycardic with HR 115, Tachypnic with RR 26, Afebrile, BP 139/80. Initial ABG revealed pH 7.29, pCO2 89, HCO3 39 with a base excess of 9, indicating Respiratory acidosis with metabolic compensation. The patient was noted to be mildly distressed, anxious appearing with labored breathing on exam. BiPap was initiated. Repeat ABG following roughly 30min BiPap revealed pH 7.34, pCO2 69. Initial lab workup was significant for WBC 16.6, Hgb 11.3, Plt 440, Na 135, BNP 106, BUN and Cr were WNL, Anion Gap 5. UA was obtained and was mostly bland except for mild amount of proteinuria. CXR was obtained and revealed redomonstration of bibasilar opacities which could represent subsegmental atelectasis vs scarring with a stable bilateral interstitial prominence from prior studies. There was no evidence of any acute cardiopulmonary process nor infectious process. Goals of care were discussed with patient and family who all were in agreement that patient would in fact like to be intubated if deemed necessary. Patient tolerated BiPap well for a few hours and was ultimately transitioned to Nasal canula and transferred to the step down unit, ICU admission deemed not necessary given patients significant improvement. Past Med Surg Social Fam HX - Past Medical History Medical history: CHF, COPD, coronary artery disease, hyperlipidemia, hypertension, myocardial infarction Additional medical history: unsure about CHF, recent falls Psychiatric history: anxiety - Past Surgical History Surgical History: hysterectomy, orthopedic, other Additional surgical history: right knee, left shoulder, left arm, right ankle - Social History Smoking Status: Current every day smoker Smokeless Tobacco Status: No Alcohol use: none Drug use: none - Family History Mother Family Member Ethnicity: Non- Living Status: Hx Family Cardiac Disorders: Yes Hx Family Cancer: Yes (Colon) Hx Family Neurologic Disorders: Yes (cva) Hx Family HEENT Disorders: Yes (macular degeneration) Father Adopted: No Family Member Ethnicity: Non- Living Status: Hx Family Cardiac Disorders: Yes Hx Family Respiratory Disorders: No Hx Family Cancer: Yes (colon ca 1980) Hx Family GI Disorders: No Hx Family Endocrine Disorder: No Hx Family Neuromuscular Disorders: No Hx Family Neurologic Disorders: No Hx Family HEENT Disorders: No Hx Family Autoimmune Disorders: No All Systems: The remainder of the systems were reviewed and are negative Physical Examination Vital Signs: Vital Signs, Last 4 Hours Temp Pulse Resp BP Pulse Ox 11/25/18 08:00 108 26 130/83 99 11/25/18 07:14 22 97 11/25/18 06:59 16 96 11/25/18 06:41 109 19 139/80 98 11/25/18 06:34 97.9 F 115 21 139/80 96 General appearance: no acute distress, alert Eyes: nonicteric ENT: oropharynx moist Neck: supple, no lymphadenopathy, no JVD Effort: mildly labored Auscultation: bilateral: wheezes Cardiovascular: other (tachycardic, regular rythym, no murmurs) Gastrointestinal: normoactive bowel sounds, soft, non-tender Integumentary: normal Extremities: no cyanosis, edema (+1 pretibial pitting edema) normal mental status mood appropriate Results - Laboratory Findings CBC and BMP: 11/25/18 06:40 11/25/18 06:40 ABG ABG pH 7.29 pH Units (7.32-7.45) L 11/25/18 07:06 ABG pCO2 82 mmHg (35-45) H* 11/25/18 07:06 ABG pO2 89 mmHg (85-104) 11/25/18 07:06 ABG O2 Saturation 95 % (95-98) 11/25/18 07:06 PT/INR, D-dimer PT 10.1 Seconds (9.4-12.1) 11/25/18 06:40 Abnormal lab findings: Abnormal lab results WBC 16.6 K/mcL (4.3-11.1) H D 11/25/18 06:40 RBC 3.75 M/mcL (3.82-4.97) L 11/25/18 06:40 Hgb 11.3 g/dL (11.5-15.4) L 11/25/18 06:40 MCHC 30.2 g/dL (31.6-35.5) L 11/25/18 06:40 Plt Count 440 K/mcL (140-400) H 11/25/18 06:40 MPV 9.0 fL (9.4-12.4) L 11/25/18 06:40 Neutrophils # 13.3 K/mcL (1.6-8.9) H 11/25/18 06:40 ABG pH 7.29 pH Units (7.32-7.45) L 11/25/18 07:06 ABG pCO2 82 mmHg (35-45) H* 11/25/18 07:06 ABG HCO3 39 mEq/L (21-27) H 11/25/18 07:06 ABG Total CO2 41 mEq/L (20-26) H 11/25/18 07:06 ABG Base Excess 9 mEq/L (-2 to 3) H 11/25/18 07:06 Sodium 135 mEq/L (136-145) L 11/25/18 06:40 Chloride 93 mEq/L (98-107) L 11/25/18 06:40 Carbon Dioxide 37 mEq/L (23-29) H 11/25/18 06:40 Glucose 116 mg/dL (70-105) H 11/25/18 06:40 B-Natriuretic Peptide 106 pg/mL (Less than 100) H 11/25/18 06:40 Urine Protein 30 mg/dL (Neg-Trace) H 11/25/18 08:34 Ur Squamous Epith Cells Many per lpf (None-Few) H 11/25/18 08:34 - Clinical Findings Intake & Output: Intake & Output 11/24/18 11/25/18 11/25/18 23:59 07:59 15:59 Weight 91.626 kg
--- NOTE | 2018-11-25 09:13 | Event Note ---
Date of Encounter: 11/25/18 Time of Encounter: 09:08 I was called by the ER staff requesting admission for Mrs. Cook, at bedside the patient is somnolent, respiratory rate ranged from mid 30-40, heart rate up to 120, she has been on BiPAP for the last 45 minutes was no improvement, daughter at bedside stating the patient is a full code, and reported that has never seen her respiratory condition deteriorating to that extent, since patient is a full code, family wanted her to be intubated if indicated, clinically indicated to Tiffany Ibarra is pressure from the ER the clinical situation and the family wishes, we both responded to the bedside and she agreed with my clinical assessment the pulmonary consult needed immediately to evaluate the patient candidacy for intubation, I spoke with Ms. siegel who stated there is no to availableatthispoint, and only ICU bed is available, myself and the ER spoke to pulmonary attending physician on consult, who agreed to see the patient promptly for further evaluation and management, awaiting for his recommendation to further proceed with bed placement in clinic and management.
[2018-11-25] MEDS ORDERED: Albuterol 2.5 MG/3 ML NEBULIZER IH ONE (09:17)
[2018-11-25 09:24] LABS: ABG Base Excess 9 mEq/L (-2 to 3); ABG HCO3 37 mEq/L (21-27); ABG Oxygen Saturation 94 % (95-98); ABG PCO2 69 mmHg (35-45); ABG PH 7.34 pH Units (7.32-7.45); ABG PO2 80 mmHg (85-104); ABG TCO2 39 mEq/L (20-26)
[2018-11-25] MEDS ORDERED: Ondansetron 4 MG/2 ML VIAL IVP PRN (10:50)
[2018-11-25] MEDS ORDERED: Naloxone 0.4 MG/ML INJ IVP PRN (10:50)
[2018-11-25] MEDS: MethylPREDNISolone 40 MG/ML VIAL IVP SCH ×3 (12:53→23:11)
[2018-11-25] MEDS: Azithromycin 500 MG in 0.9 % Sodium Chloride 250 ML IVPB SCH (12:53)
[2018-11-25] MEDS: Ipratropium/Albuterol Neb 3 ML IH SCH ×4 (14:53→19:43)
[2018-11-25] MEDS ORDERED: Perflutren Lipid Microsphere 1.3 ML in 0.9 % Sodium Chloride 8.7 ML IVP ONE (19:13)
[2018-11-25] MEDS: Furosemide 40 MG/4 ML VIAL IVP SCH (21:06)
--- NOTE | 2018-11-25 21:14 | Internal Med History&Physical ---
Date of Encounter: 12/26/18 Time of Encounter: 09:00 Internal Medicine - H&P: HPI Chief complaint: Shortness of breath History of present illness: Ms. Cook is a 68 year old female with past medical history of COPD who presented to the ER with progressive worsening of shortness of breath, was evaluated by her PCP on and was started on prednisone by mouth with no significant improvement, open on arrival to the ER she appears to be in mild respiratory distress,, her oxygen saturation is in the low 80s, she was placed on BiPAP for almost 30 minutes was no significant improvement, her ABG revealed significant hyper apnea was reported to CO2 of 89, respiratory rate is ranging between 30 and 40, heart rate up to 120, , daughter at bedside stating the patie nt is a full code, and reported that has never seen her respiratory condition deteriorating to that extent, since patient is a full code, family wanted her to be intubated if indicated, clinically indicated to iTffany Ibarra is pressure from the ER the clinical situation and the family wishes, we both responded to the bedside and she agreed with my clinical assessment the pulmonary consult needed immediately to evaluate the patient candidacy for intubation. Pulmonary team evaluated the patient on the bedside and decided not proceed with invasive airway management and recommended to continue BiPAP and admitted the patient to ICU. Past Med Surg Social Fam HX - Past Medical History Medical history: CHF, COPD, coronary artery disease, hyperlipidemia, hypertension, myocardial infarction Additional medical history: unsure about CHF, recent falls Psychiatric history: anxiety - Past Surgical History Surgical History: hysterectomy, orthopedic, other Additional surgical history: right knee, left shoulder, left arm, right ankle - Social History Smoking Status: Current every day smoker Smokeless Tobacco Status: No Alcohol use: none Drug use: none - Family History Mother Family Member Ethnicity: Non- Living Status: Hx Family Cardiac Disorders: Yes Hx Family Cancer: Yes (Colon) Hx Family Neurologic Disorders: Yes (cva) Hx Family HEENT Disorders: Yes (macular degeneration) Father Adopted: No Family Member Ethnicity: Non- Living Status: Hx Family Cardiac Disorders: Yes Hx Family Respiratory Disorders: No Hx Family Cancer: Yes (colon ca 1979) Hx Family GI Disorders: No Hx Family Endocrine Disorder: No Hx Family Neuromuscular Disorders: No Hx Family Neurologic Disorders: No Hx Family HEENT Disorders: No Hx Family Autoimmune Disorders: No Internal Medicine - H&P: Meds Omeprazole [PriLOSEC] 20 mg PO DAILY 08/12/15 [History] Aspirin 81 mg PO DAILY tab.chew 04/06/16 [Rx] Atorvastatin [Lipitor] 40 mg PO HS 01/26/17 [History] Metoprolol Succinate 50 mg PO DAILY 01/26/17 [History] Losartan/Hydrochlorothiazide [Hyzaar 100-25 Tablet] 0.5 tab PO DAILY 11/13/17 [History] Cholecalciferol (Vitamin D3) [Dialyvite Vitamin D] 5,000 unit PO DAILY 06/25/18 [History] Duloxetine HCl [Cymbalta] 60 mg PO DAILY 06/25/18 [History] Magnesium Oxide 400 mg PO DAILY 06/25/18 [History] Albuterol Sulfate [Proventil Inhaler] 2 puff IH Q6H PRN #1 inhaler 07/02/18 [Rx] Azithromycin [Zithromax] 250 mg PO MOWEFR 07/11/18 [History] Oxygen 2 l .ROUTE AD #99 each 07/29/18 [Rx] Rivaroxaban [Xarelto] 20 mg PO QPM #30 tablet 07/29/18 [Rx] Arformoterol Tartrate [Brovana] 15 mcg IH BID 11/25/18 [History] Lidocaine Patch [Lidoderm 5% patch] 1 patch TP DAILY PRN 11/25/18 [History] Revefenacin [Yupelri] 175 mcg IH DAILY 11/25/18 [History] dilTIAZem HCl [Cardizem] 60 mg PO DAILY 11/26/18 [History] ALPRAZolam [Xanax 0.5 MG Tablet] 0.5 mg PO BID PRN 7 Days #14 tablet 11/30/18 [Rx] Budesonide Neb [Pulmicort Neb] 0.25 mg IH BIDR #60 inhsol 11/30/18 [Rx] Ipratropium/Albuterol Neb [Duoneb] 3 ml IH QID PRN #100 inhsol 11/30/18 [Rx] Nicotine Patch [Nicoderm] 21 mg TD DAILY #30 patch.td24 11/30/18 [Rx] Potassium Chloride 20 mg PO QDPC #30 tab.er.prt 11/30/18 [Rx] Torsemide [Demadex] 40 mg PO BID #60 tablet 11/30/18 [Rx] predniSONE [PredniSONE] See Taper PO DAILY 9 Days #21 tablet 11/30/18 [Rx] Allergy/AdvReac Type Severity Reaction Status Date / Time No Known Allergies Allergy Verified 05/26/18 14:57 All Systems PM: A 10-system review of systems was performed and is negative for pertinent findings except as documented above in the HPI. - Constitutional Vitals: Temp Pulse Resp BP Pulse Ox 98.9 F 106 28 117/72 92 11/25/18 20:23 11/25/18 20:23 11/25/18 20:23 11/25/18 20:23 11/25/18 20:23 General appearance: Present: A&O X 0 Exam: . - Head Head exam: Present: atraumatic, normocephalic - Neck Neck exam general surgery: Present: supple, trachea midline. Absent: lymphadenopathy - Respiratory Respiratory exam: Present: rhonchi, wheezes. Absent: accessory muscle use, rales - Cardiovascular Cardiovascular exam: Present: RRR, +S1, +S2. Absent: diastolic murmur, gallop, rubs, systolic murmur - GI/Abdominal GI/Abdominal exam: Present: normal bowel sounds, soft, no peritoneal signs. Absent: distended, tenderness - Extremities Exam Extremities exam: Present: pedal edema Internal Med - H&P Results - Labs CBC & Chem 7: 11/30/18 00:49 11/30/18 00:49 Labs: Short CBC 11/25/18 Range/Units 06:40 WBC 16.6 H D (4.3-11.1) K/mcL Hgb 11.3 L (11.5-15.4) g/dL Hct 37.4 (35.3-44.9) % Plt Count 440 H (140-400) K/mcL Neutrophils # 13.3 H (1.6-8.9) K/mcL BMP 11/25/18 06:40 Sodium 135 L Potassium 4.6 Chloride 93 L Carbon Dioxide 37 H BUN 15 Creatinine 0.78 Glucose 116 H Calcium 9.4 Cardiac Enzymes 11/25/18 11/25/18 11/25/18 Range/Units 06:40 11:03 17:04 Troponin I < 0.03 0.03 0.03 (< 0.04) ng/mL Urine 11/25/18 Range/Units 08:34 Urine Color Yellow (Yellow) Urine Clarity Clear (Clear) Urine pH 6.0 (5.0-8.0) pH Units Ur Specific [place] 1.021 (1.010-1.025) Urine Protein 30 H (Neg-Trace) mg/dL Urine Glucose (UA) Normal (Normal) mg/dL - ABG Interpretation ABG results: 11/25/18 11/25/18 07:06 09:19 ABG pH 7.29 L 7.34 ABG pCO2 82 H* 69 H ABG pO2 89 80 L ABG HCO3 39 H 37 H ABG Total CO2 41 H 39 H ABG O2 Saturation 95 94 L ABG Base Excess 9 H 9 H - Impressions ITS Impressions Chest X-Ray 11/25/18 06:41 IMPRESSION: No acute cardiopulmonary disease or significant interval change from prior study 11/21/2018. D/ / Jack Willoughby / Jack Willoughby Interpreting Provider: Jack Willoughby - Assessment and Plan (1) Acute on chronic respiratory failure with hypercapnia Status: Acute Assessment and plan: Morning was consulted for further evaluation and management, so far recommended to continue BiPAP for now , IV steroids, Solu-Medrol 40 mg every bronchodilator therapy, ABs. (2) HTN (hypertension) Status: Chronic Assessment and plan: We will continue home medication and monitor blood pressure while inpatient and adjust regimen accordingly Qualifiers: Hypertension type: essential hypertension Qualified Code(s): I10 - Essential (primary) hypertension (3) SANJUANA (obstructive sleep apnea) Status: Chronic (4) Chronic heart failure Status: Chronic Assessment and plan: The patient appears to be hyperkalemic, will start patient on 40 mg IV Lasix, strict I&O's, obtain 2D echo Qualifiers: Heart failure type: diastolic Qualified Code(s): I50.32 - Chronic diastolic (congestive) heart failure (5) GERD (gastroesophageal reflux disease) Status: Chronic Qualifiers: Esophagitis presence: without esophagitis Qualified Code(s): K21.9 - Gastro-esophageal reflux disease without esophagitis (6) COPD (chronic obstructive pulmonary disease) Status: Chronic Assessment and plan: Pulmonary was consulted for further evaluation and management Qualifiers: COPD type: unspecified COPD Qualified Code(s): J44.9 - Chronic obstructive pulmonary disease, unspecified (7) CAD (coronary artery disease) Status: Chronic Assessment and plan: We will continue home medication, patient has no chest pain, there is no A. fib evidence of ACD with changes and first set of troponin was was no significant abnormalities Qualifiers: Qualified Code(s): I25.10 - Atherosclerotic heart disease of [place] coronary artery without angina pectoris (8) Obesity (BMI 30.0-34.9) Status: Chronic (9) Tobacco abuse Status: Chronic - Time Spent With Patient Total time spent is greater than 50% in coordination of care (as documented) at patient's floor/unit and/or counseling patient:
[2018-11-25] MEDS: Acetaminophen 325 MG TABLET PO PRN (21:23)
[2018-11-25] MEDS: Budesonide Neb 0.25 MG/2 ML IH SCH (22:29)
[2018-11-25] MEDS: *HR* Heparin 5,000 UNIT/ML VIAL SQ SCH (23:09)
[2018-11-26] MEDS: Ipratropium/Albuterol Neb 3 ML IH SCH ×6 (00:05→20:08)
--- NOTE | 2018-11-26 00:26 | Electrocardiograph Report ---
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
[2018-11-26] MEDS: *HR* Heparin 5,000 UNIT/ML VIAL SQ SCH ×2 (05:03→13:58)
[2018-11-26] MEDS: MethylPREDNISolone 40 MG/ML VIAL IVP SCH ×3 (05:04→17:04)
[2018-11-26 06:14] LABS: Basophils % 0.1 %; Hematocrit 36.4 % (35.3-44.9); Hemoglobin 11.2 g/dL (11.5-15.4); Immature Granulocytes % 1.1 % (0-4); Lymphocytes # 0.9 K/mcL (0.6-4.6); Lymphocytes % 6.2 %; Mean Corpuscular HGB Conc 30.8 g/dL (31.6-35.5); Mean Corpuscular Hemoglobin 30.4 pg (28.0-33.3); Mean Corpuscular Volume 98.9 fL (83.0-100.0); Mean Platelet Volume 9.4 fL (9.4-12.4); Monocytes # 0.4 K/mcL (0.0-1.3); Monocytes % 2.5 %; Neutrophils # 13.4 K/mcL (1.6-8.9); Platelet Count 512 K/mcL (140-400); Red Blood Count 3.68 M/mcL (3.82-4.97); Red Cell Distribution Width 12.8 % (11.5-14.5); Segmented Neutrophils % 90.1 %; White Blood Count 14.9 K/mcL (4.3-11.1)
[2018-11-26 06:26] LABS: INR 0.9; Prothrombin Time 10.5 Seconds (9.4-12.1)
[2018-11-26 06:29] LABS: Activated Partial Thrombo Time 32.9 Seconds (26.0-36.0)
[2018-11-26 06:33] LABS: Alanine Aminotransferase 18 Units/L (7-52); Albumin 3.8 g/dL (3.5-5.7); Albumin/Globulin Ratio 1.4 (1.1-2.2); Alkaline Phosphatase 128 Units/L (34-104); Aspartate Amino Transferase 11 Units/L (13-39); BUN/Creatinine Ratio 19 (6-26); Bilirubin,Total 0.2 mg/dL (0.3-1.0); Blood Urea Nitrogen 17 mg/dL (8-23); Calcium 9.3 mg/dL (8.6-10.3); Carbon Dioxide 36 mEq/L (23-29); Chloride 91 mEq/L (98-107); Chol/HDL Ratio 2.1 (0-4.9); Cholesterol 173 mg/dL (< 200); Globulin 2.8 g/dL (2.4-3.5); Glucose 169 mg/dL (70-105); HDL Cholesterol 81 mg/dL (40-59); LDL Cholesterol,Calculated 77 mg/dL (0-99); Magnesium 2.1 mg/dL (1.6-2.6); Osmolality,Calculated 287 (280-300); Phosphorous 4.6 mg/dL (2.7-4.5); Potassium 4.1 mEq/L (3.5-5.1); Sodium 136 mEq/L (136-145); Total Protein 6.6 g/dL (6.4-8.9); Triglycerides 75 mg/dL (< 150); eGFR For African Americans > 60 (> 60); eGFR For Non-African Americans > 60 (> 60)
[2018-11-26] MEDS: Budesonide Neb 0.25 MG/2 ML IH SCH ×2 (07:47→21:26)
--- NOTE | 2018-11-26 08:00 | Pulmonology Progress Note ---
Date of Encounter: 11/26/18 Time of Encounter: 07:59 Assessment and Plan (1) Acute on chronic respiratory failure with hypoxia and hypercapnia Current Visit: No Status: Chronic She can continue to use on BiPAP as needed for work of breathing she would not be reliant on BiPAP for respiratory failure at this time. She can continue to have FiO2 support to keep oxygen saturation greater than 89% around 92%. Debbie should be encouraged to get out of bed today and set up in the chair and hopefully by the later part of the afternoon or evening she could not even get out of bed and start walking around with oxygen as says she feels able to. (2) Acute exacerbation of chronic obstructive airways disease Current Visit: No Status: Acute Severe COPD exacerbation I suspect mediated by continued use of tobacco. She is benefiting from bronchodilator support and likely can back down to schedule duo nebs every 4 hours with every one hour albuterol on an as-needed basis. It is reasonable to continue Symbicort as well. Would continue IV steroids today with plan to transition to by mouth over the next 24-48 hours she will benefit from a three-week Prednisone taper she should be on prednisone at least 20 mg by the time she follows up in clinic with pulmonary in 1-2 weeks She can resume her home bronchodilator regimen for COPD at the time of discharge (3) Hospital-acquired pneumonia Current Visit: No Status: Acute No clear infiltrate on chest x-ray and pro-calcitonin normal elevated white count likely secondary to stress response or systemic glucocorticoid recommend de-escalating at this point given cultures have been negative for 24 hours and using macrolide antibiotic for COPD exacerbation (4) Acute on chronic diastolic heart failure Current Visit: No Status: Acute She will benefit from continued neck negative for volume status while inpatient with COPD exacerbation IV Lasix 40 mg this morning has been ordered and she may benefit from additional dose of Ceftin based upon clinical course (5) Tobacco abuse Current Visit: No Status: Chronic Debbie candidly shared with me that she is felt so good from a breathing standpoint over the last few months with optimization of her outpatient regimen that she is gone back to smoking. She is remorseful about this decision but I did provide words of encouragement and we will continue to treat her for tobacco addiction. Nicotine patch requested while inpatient this should be provided for her. I suspect with optimization of her anxiety by restarting home Xanax and Cymbalta that this also will help her to stay off smoking. Unfortunately given the severity of underlying COPD if she continues to smoke think her prognosis is exceptionally poor and would expect repeat hospitalization likely endotracheal intubation Patient has stabilized over the last 24 hours and defer further questions arise please do not hesitate to call me. Otherwise pulmonary will sign off at this time thank you very much for this consultation we will forward with falling with the patient in clinic [facility] Perera [phone] Subjective Principal diagnosis: AECOPD Interval history: Meka has improved markedly since this are in the emergency room yesterday she is not able to speak in full sentences and is only mildly dyspneic. She has been on BiPAP but able to take it off for prolonged periods of time. She does say expressing some anxiety she is on home Xanax and Cymbalta for this. Objective PUL Vital signs: Last Vital Signs Temp 97.1 F L 11/26/18 07:22 Pulse 92 11/26/18 07:22 Resp 18 11/26/18 07:47 BP 133/81 11/26/18 07:47 Pulse Ox 95 11/26/18 07:47 General appearance: no acute distress Eyes: nonicteric Neck: supple Effort: mildly labored Auscultation: bilateral: wheezes (Faint expiratory wheezes noted) Cardiovascular: regular rate and rhythm Gastrointestinal: normoactive bowel sounds, soft, non-tender Integumentary: normal Extremities: edema Musculoskeletal: no deformities normal mental status, non-focal exam anxious Results - Laboratory Findings CBC and BMP: 11/26/18 05:23 11/26/18 05:23 ABG ABG pH 7.34 pH Units (7.32-7.45) 11/25/18 09:19 ABG pCO2 69 mmHg (35-45) H 11/25/18 09:19 ABG pO2 80 mmHg (85-104) L 11/25/18 09:19 ABG O2 Saturation 94 % (95-98) L 11/25/18 09:19 PT/INR, D-dimer PT 10.5 Seconds (9.4-12.1) 11/26/18 05:23 Abnormal lab findings: Abnormal lab results WBC 14.9 K/mcL (4.3-11.1) H 11/26/18 05:23 RBC 3.68 M/mcL (3.82-4.97) L 11/26/18 05:23 Hgb 11.2 g/dL (11.5-15.4) L 11/26/18 05:23 MCHC 30.8 g/dL (31.6-35.5) L 11/26/18 05:23 Plt Count 512 K/mcL (140-400) H 11/26/18 05:23 MPV 9.0 fL (9.4-12.4) L 11/25/18 06:40 Neutrophils # 13.4 K/mcL (1.6-8.9) H 11/26/18 05:23 ABG pH 7.29 pH Units (7.32-7.45) L 11/25/18 07:06 ABG pCO2 69 mmHg (35-45) H 11/25/18 09:19 ABG pO2 80 mmHg (85-104) L 11/25/18 09:19 ABG HCO3 37 mEq/L (21-27) H 11/25/18 09:19 ABG Total CO2 39 mEq/L (20-26) H 11/25/18 09:19 ABG O2 Saturation 94 % (95-98) L 11/25/18 09:19 ABG Base Excess 9 mEq/L (-2 to 3) H 11/25/18 09:19 Sodium 135 mEq/L (136-145) L 11/25/18 06:40 Chloride 91 mEq/L (98-107) L 11/26/18 05:23 Carbon Dioxide 36 mEq/L (23-29) H 11/26/18 05:23 Glucose 169 mg/dL (70-105) H 11/26/18 05:23 POC Glucose 173 mg/dL (70-99) H 11/26/18 05:34 Phosphorus 4.6 mg/dL (2.7-4.5) H 11/26/18 05:23 Total Bilirubin 0.2 mg/dL (0.3-1.0) L 11/26/18 05:23 AST 11 Units/L (13-39) L 11/26/18 05:23 Alkaline Phosphatase 128 Units/L (34-104) H 11/26/18 05:23 B-Natriuretic Peptide 106 pg/mL (Less than 100) H 11/25/18 06:40 HDL Cholesterol 81 mg/dL (40-59) H 11/26/18 05:23 Urine Protein 30 mg/dL (Neg-Trace) H 11/25/18 08:34 Ur Squamous Epith Cells Many per lpf (None-Few) H 11/25/18 08:34 Nasal Screen MRSA (PCR) DETECTED (Not Detect) A 11/25/18 21:30 - Microbiology Findings Microbiology Findings: Microbiology, Last 48 Hours 11/25/18 21:37 Legionella Antigen - Final Urine,Clean Catch Streptococcus pneumoniae Antigen (M - Final 11/25/18 07:36 Blood Culture - Preliminary Peripheral Venipuncture Culture is incubating and being continuously monitored for growth. Final report to follow. 11/25/18 07:41 Blood Culture - Preliminary Peripheral Venipuncture Culture is incubating and being continuously monitored for growth. Final report to follow. - Clinical Findings Intake & Output: Intake & Output 11/25/18 11/25/18 11/26/18 15:59 23:59 07:59 Intake Total 250 / 250 Output Total 700 / 700 150 / 150 Balance 250 / -450 -700 / -450 -150 / -150 Weight 96.1 kg Consult Discharge Plan - Plan Referrals: Bigg Sheridan [Primary Care Provider] -
[2018-11-26] MEDS: Furosemide 40 MG/4 ML VIAL IVP SCH ×2 (08:10→20:12)
[2018-11-26] MEDS: Azithromycin 500 MG in 0.9 % Sodium Chloride 250 ML IVPB SCH (10:00)
--- NOTE | 2018-11-26 13:52 | Internal Med Progress Note ---
Hospitalist Progress Note - Encounter Date of Encounter: 11/26/18 Time of Encounter: 13:51 - Subjective Interval History: I have seen and evaluated the patient at bedside. Patient reported significant improvement on her breathing when compared with yesterday. denies chest pain, nausea or vomiting. - Exam Vitals: Temp Pulse Resp BP Pulse Ox 98.2 F 115 20 135/77 94 11/26/18 11:40 11/26/18 11:40 11/26/18 11:40 11/26/18 11:40 11/26/18 11:40 Exam: Vitals: Reviewed General: Alert and oriented x4. In mild distress due to shortness of breath. Cardiovascular: irregularly irregular, normal S1 & S2, no rubs, murmurs or gallops. Lungs: decreased breath sounds b/l, minimal expiratory wheezes, no rales or crackles. Abdomen: Soft, non-tender, no rigidity. Extremities: No deformity, no edema or tenderness, no joint swelling or clubbing. Neurological: Normal cognition and motor skills. Rest of the physical exam is non contributory - Assessment and Plan (1) Acute on chronic respiratory failure with hypercapnia Current Visit: No Status: Acute Assessment and Plan: Patient reported significant improvement on her breathing. started she quit smoking but started smoking not long ago and that's when her symptoms started. Plan -alternate BiPAp with O2 by nasal cannula or high flow Q4HRs - continue bronchodilators Q4RT scheduled - c/w empiric antibiotics and IV steroids - on budosenide - Pulmonology recommendations appreciated. - incentive spirometry and peak flow (2) HTN (hypertension) Current Visit: No Status: Chronic Assessment and Plan: BP controlled but patient tachycardic. continue furosemide 40mg/IV BID, resume home dose of diltiazem (3) SANJUANA (obstructive sleep apnea) Current Visit: No Status: Chronic Assessment and Plan: Nocturnal BiPAp. (4) Chronic heart failure Current Visit: No Status: Chronic Assessment and Plan: Patient with acute decompensated HFpEF. total negative balance 1.4 litters a day. Plan: continue fluids restrictive strategies to 1.5 litters a day. on furosemide 40mg/IV BID daily weight and strict intake and output. (5) GERD (gastroesophageal reflux disease) Current Visit: No Status: Chronic Assessment and Plan: will resume home dose of omeprazole (6) COPD (chronic obstructive pulmonary disease) Current Visit: No Status: Chronic (7) CAD (coronary artery disease) Current Visit: No Status: Chronic Assessment and Plan: On aspirin 81 mg by mouth daily. (8) Obesity (BMI 30.0-34.9) Current Visit: No Status: Chronic (9) Tobacco abuse Current Visit: No Status: Chronic (10) HLD (hyperlipidemia) Current Visit: Yes Status: Chronic Assessment and Plan: on statin (11) Atrial fibrillation Current Visit: No Status: Chronic Assessment and Plan: will resume patient home medications for rate controlled. On rivaroxaban due to high CHADSVASC score DVT Prophylaxis: intermittent pneumatic compression for DVT prophylaxis - Summary of Assessment and Plan Summary of Assessment and Plan: Patient to remain in the hospital due to copd exacerbation on IV steroids and Bipap. - Time Spent with Patient Total time spent is greater than 50% in coordination of care (as documented) at patient's floor/unit and/or counseling patient: Greater than 35 minutes (45) Plan of Care Discussed with: patient (and the nurse.) Internal Medicine: Result - Labs CBC & Chem 7: 11/26/18 05:23 11/26/18 05:23 Labs: Short CBC 11/26/18 Range/Units 05:23 WBC 14.9 H (4.3-11.1) K/mcL Hgb 11.2 L (11.5-15.4) g/dL Hct 36.4 (35.3-44.9) % Plt Count 512 H (140-400) K/mcL Neutrophils # 13.4 H (1.6-8.9) K/mcL BMP 11/26/18 05:23 Sodium 136 Potassium 4.1 Chloride 91 L Carbon Dioxide 36 H BUN 17 Creatinine 0.88 Glucose 169 H Calcium 9.3 Cardiac Enzymes 11/25/18 11/25/18 Range/Units 17:04 23:05 Troponin I 0.03 0.03 (< 0.04) ng/mL Liver Function 11/26/18 Range/Units 05:23 Total Bilirubin 0.2 L (0.3-1.0) mg/dL AST 11 L (13-39) Units/L ALT 18 (7-52) Units/L Alkaline Phosphatase 128 H (34-104) Units/L Albumin 3.8 (3.5-5.7) g/dL - ABG Interpretation ABG results: ABG ABG pH 7.34 pH Units (7.32-7.45) 11/25/18 09:19 ABG pCO2 69 mmHg (35-45) H 11/25/18 09:19 ABG pO2 80 mmHg (85-104) L 11/25/18 09:19 ABG O2 Saturation 94 % (95-98) L 11/25/18 09:19 PT/INR, D-dimer PT 10.5 Seconds (9.4-12.1) 11/26/18 05:23 - Impressions Impressions Echocardiogram 11/25/18 10:56 Impressions: LVEF 65-70%. Mild concentric left ventricular hypertrophy. Indeterminate diastolic function. Normal right ventricular structure and function. No evidence of pulmonary hypertension. No obvious significant valvular dysfunction. Left Ventricular Wall Motion: Rest Echo Findings All wall segments showed normal motion. Findings: Study Quality * Technically sub-optimal due to clinical status. ECG Findings * Sinus tachycardia. Left Ventricle * LVEF 65-70%. * Normal LV chamber size, wall thickness * Mild concentric left ventricular hypertrophy. * Indeterminate diastolic function. * Definity echo contrast was used. Right Ventricle * Normal right ventricular structure and function. Left Atrium * Normal left atrial size. Right Atrium * Normal right atrial size. Interatrial Septum * Interatrial septum not well evaluated. Aortic Valve * Aortic valve not well visualized. * No aortic stenosis. * Moderately sclerotic aortic valve leaflets. Mitral Valve * Mitral valve not well visualized. * No mitral stenosis. * Trace mitral regurgitation. Tricuspid Valve * Trace tricuspid regurgitation. * No tricuspid stenosis. * Tricuspid valve not well visualized. * No evidence of pulmonary hypertension. Pulmonic Valve * Pulmonic valve not well visualized. Aorta * Normally sized aortic root. Pericardium * The pericardium appears normal. IVC * Normal IVC dimensions and inspiratory collapse. Pulmonary Artery * Pulmonary artery not well visualized. Consult Discharge Plan - Plan Referrals: Bigg Sheridan [Primary Care Provider] - 12/06/18 10:00 am () (2) HTN (hypertension) Qualifiers: Hypertension type: essential hypertension Qualified Code(s): I10 - Essential (primary) hypertension (4) Chronic heart failure Qualifiers: Heart failure type: diastolic Qualified Code(s): I50.32 - Chronic diastolic (congestive) heart failure (5) GERD (gastroesophageal reflux disease) Qualifiers: Esophagitis presence: without esophagitis Qualified Code(s): K21.9 - Gastro- esophageal reflux disease without esophagitis (6) COPD (chronic obstructive pulmonary disease) Qualifiers: COPD type: unspecified COPD Qualified Code(s): J44.9 - Chronic obstructive pulmonary disease, unspecified (7) CAD (coronary artery disease) Qualifiers: Qualified Code(s): I25.10 - Atherosclerotic heart disease of [place] coronary artery without angina pectoris (10) HLD (hyperlipidemia) Qualifiers: Hyperlipidemia type: unspecified Qualified Code(s): E78.5 - Hyperlipidemia, unspecified (11) Atrial fibrillation Qualifiers: Atrial fibrillation type: paroxysmal Qualified Code(s): I48.0 - Paroxysmal atrial fibrillation
[2018-11-26] MEDS: *HR* Rivaroxaban 10 MG TABLET PO SCH (17:04)
[2018-11-27] MEDS: Ipratropium/Albuterol Neb 3 ML IH SCH ×7 (00:08→23:53)
[2018-11-27] MEDS: MethylPREDNISolone 40 MG/ML VIAL IVP SCH ×4 (00:36→17:32)
[2018-11-27 02:14] LABS: Basophils % 0.2 %; Hematocrit 36.7 % (35.3-44.9); Hemoglobin 11.5 g/dL (11.5-15.4); Immature Granulocytes % 1.1 % (0-4); Lymphocytes # 0.9 K/mcL (0.6-4.6); Lymphocytes % 4.5 %; Mean Corpuscular HGB Conc 31.3 g/dL (31.6-35.5); Mean Corpuscular Volume 95.8 fL (83.0-100.0); Monocytes # 0.8 K/mcL (0.0-1.3); Monocytes % 4.2 %; Neutrophils # 17.9 K/mcL (1.6-8.9); Platelet Count 511 K/mcL (140-400); Red Blood Count 3.83 M/mcL (3.82-4.97); Red Cell Distribution Width 12.8 % (11.5-14.5); White Blood Count 19.9 K/mcL (4.3-11.1)
[2018-11-27 02:34] LABS: Calcium 9.2 mg/dL (8.6-10.3); Magnesium 2.2 mg/dL (1.6-2.6); Phosphorous 4.6 mg/dL (2.7-4.5); Potassium 3.9 mEq/L (3.5-5.1)
[2018-11-27] MEDS: Budesonide Neb 0.25 MG/2 ML IH SCH ×2 (07:16→19:25)
[2018-11-27] MEDS: Furosemide 40 MG/4 ML VIAL IVP SCH (08:28)
[2018-11-27] MEDS: dilTIAZem HCl 60 MG TABLET PO SCH (08:29)
[2018-11-27] MEDS: Aspirin Enteric Coated 81 MG Tablet PO SCH (08:29)
[2018-11-27] MEDS: Metoprolol XL (24 HR) Succ 50 MG TAB.ER.24H PO SCH (08:29)
[2018-11-27] MEDS: ALPRAZolam 0.5 MG TABLET PO PRN (11:42)
[2018-11-27] MEDS: Azithromycin 500 MG in 0.9 % Sodium Chloride 250 ML IVPB SCH (11:46)
[2018-11-27] MEDS: Nicotine 21 MG PATCH.TD24 TD SCH (11:48)
[2018-11-27] MEDS: *HR* Rivaroxaban 10 MG TABLET PO SCH (17:32)
[2018-11-27] MEDS: Acetaminophen 325 MG TABLET PO PRN (18:51)
--- NOTE | 2018-11-27 19:21 | Internal Med Progress Note ---
Hospitalist Progress Note - Encounter Date of Encounter: 11/27/18 Time of Encounter: 10:45 - Subjective Interval History: Ms Cook reports feeling relatively better regarding her shortness of breath. Tobacco cessation is difficult for her because all her family members smokes, she is contemplating tobacco cessation. Daughter Celeste can be reached at [phone] GEN: Denies fever, chills or malaise HEENT: Denies headache blurriness, or dysphagia RESP: Admits to SOB or cough CV: Denies chest pain or palpitations GI: Denies Nausea, vomiting, diarrhea or constipation Reviewed current in hospital medications with modifications see orders Reviewed Routine labs - Exam Vitals: Temp Pulse Resp BP Pulse Ox 98.0 F 95 21 133/74 94 11/27/18 16:18 11/27/18 16:18 11/27/18 16:18 11/27/18 16:18 11/27/18 16:18 Exam: GEN: NAD, A&O x 3, Pleasant and conversant daughter at the bedside SKIN: [place] warm acyanotic not jaundice HEART: RRR, slightly tachycardic no murmurs LUNGS: CTA no wheeze or crackles, overall non labored ABDOMEN; Soft, non tender or distended, BS x 4 normactive EXT: No LE edema, Pedal pulses 1+, radial pulses 2+ PSYCH: Mood and affect is appropriate - Assessment and Plan (1) COPD exacerbation Current Visit: Yes Status: Acute Assessment and Plan: Improving secondary to her continuous tobacco use this to Solu-Medrol switched to prednisone 40 by mouth daily. Educated patient at length about the complications of continued tobacco use which is not limited to frequent exacerbation and hospitalization (2) Acute on chronic respiratory failure with hypercapnia Current Visit: Yes Status: Acute Assessment and Plan: Continue BiPAP as needed- Pulmonology recommendations appreciated. - incentive spirometry and peak flow (3) HTN (hypertension) Current Visit: Yes Status: Chronic Assessment and Plan: Normotensive continue current management (4) SANJUANA (obstructive sleep apnea) Current Visit: Yes Status: Chronic Assessment and Plan: Nocturnal BiPAp. May need to be qualified as an outpatient (5) Chronic heart failure Current Visit: Yes Status: Chronic Assessment and Plan: Patient with acute decompensated HFpEF. total negative balance 3.3 litters so far. continue fluids restrictive strategies to 1.5 litters a day. on furosemide 40mg/IV BID, switch to oral daily weight and strict intake and output. (6) GERD (gastroesophageal reflux disease) Current Visit: Yes Status: Chronic Assessment and Plan: will resume home dose of omeprazole (7) COPD (chronic obstructive pulmonary disease) Current Visit: No Status: Chronic Assessment and Plan: Patient being treated for COPD exacerbation see plan as above (8) CAD (coronary artery disease) Current Visit: No Status: Chronic Assessment and Plan: On aspirin, ARB toprol and Lipitor she denies chest pain (9) Obesity (BMI 30.0-34.9) Current Visit: Yes Status: Chronic Assessment and Plan: Continue to encourage lifestyle changes (10) Tobacco abuse Current Visit: Yes Status: Chronic Assessment and Plan: Continue to encourage tobacco cessation. Nicotine patch (11) Atrial fibrillation Current Visit: No Status: Chronic Assessment and Plan: will resume patient home medications for rate controlled-on Toprol. On rivaroxaban due to high CHADSVASC score (12) HLD (hyperlipidemia) Current Visit: Yes Status: Chronic Assessment and Plan: on statin DVT Prophylaxis: On xarelto - Time Spent with Patient Total time spent is greater than 50% in coordination of care (as documented) at patient's floor/unit and/or counseling patient: Internal Medicine: Result - Labs CBC & Chem 7: 11/27/18 01:54 11/27/18 01:54 Labs: Short CBC 11/27/18 Range/Units 01:54 WBC 19.9 H (4.3-11.1) K/mcL Hgb 11.5 (11.5-15.4) g/dL Hct 36.7 (35.3-44.9) % Plt Count 511 H (140-400) K/mcL Neutrophils # 17.9 H (1.6-8.9) K/mcL BMP 11/27/18 01:54 Sodium 132 L Potassium 3.9 Chloride 89 L Carbon Dioxide 31 H BUN 29 H Creatinine 1.34 H Glucose 174 H Calcium 9.2 - ABG Interpretation ABG results: ABG ABG pH 7.34 pH Units (7.32-7.45) 11/25/18 09:19 ABG pCO2 69 mmHg (35-45) H 11/25/18 09:19 ABG pO2 80 mmHg (85-104) L 11/25/18 09:19 ABG O2 Saturation 94 % (95-98) L 11/25/18 09:19 PT/INR, D-dimer PT 10.5 Seconds (9.4-12.1) 11/26/18 05:23 Consult Discharge Plan - Plan Referrals: Bigg Sheridan [Primary Care Provider] - 12/06/18 10:00 am () __ (3) HTN (hypertension) Qualifiers: Hypertension type: essential hypertension Qualified Code(s): I10 - Essential (primary) hypertension (5) Chronic heart failure Qualifiers: Heart failure type: diastolic Qualified Code(s): I50.32 - Chronic diastolic (congestive) heart failure (6) GERD (gastroesophageal reflux disease) Qualifiers: Esophagitis presence: without esophagitis Qualified Code(s): K21.9 - Gastro-esophageal reflux disease without esophagitis (7) COPD (chronic obstructive pulmonary disease) Qualifiers: COPD type: unspecified COPD Qualified Code(s): J44.9 - Chronic obstructive pulmonary disease, unspecified (8) CAD (coronary artery disease) Qualifiers: Qualified Code(s): I25.10 - Atherosclerotic heart disease of [place] coronary artery without angina pectoris (11) Atrial fibrillation Qualifiers: Atrial fibrillation type: paroxysmal Qualified Code(s): I48.0 - Paroxysmal atrial fibrillation (12) HLD (hyperlipidemia) Qualifiers: Hyperlipidemia type: unspecified Qualified Code(s): E78.5 - Hyperlipidemia, unspecified
[2018-11-28 01:54] LABS: Basophils % 0.1 %; Hematocrit 33.4 % (35.3-44.9); Hemoglobin 10.6 g/dL (11.5-15.4); Immature Granulocytes % 1.3 % (0-4); Lymphocytes # 0.6 K/mcL (0.6-4.6); Lymphocytes % 3.3 %; Mean Corpuscular HGB Conc 31.7 g/dL (31.6-35.5); Mean Corpuscular Hemoglobin 30.9 pg (28.0-33.3); Mean Corpuscular Volume 97.4 fL (83.0-100.0); Mean Platelet Volume 9.1 fL (9.4-12.4); Monocytes # 0.5 K/mcL (0.0-1.3); Monocytes % 3.2 %; Neutrophils # 15.7 K/mcL (1.6-8.9); Platelet Count 449 K/mcL (140-400); Red Blood Count 3.43 M/mcL (3.82-4.97); Red Cell Distribution Width 12.7 % (11.5-14.5); Segmented Neutrophils % 92.1 %; White Blood Count 17.1 K/mcL (4.3-11.1)
[2018-11-28 02:14] LABS: Calcium 8.8 mg/dL (8.6-10.3); Potassium 4.6 mEq/L (3.5-5.1)
[2018-11-28] MEDS: Ipratropium/Albuterol Neb 3 ML IH SCH ×5 (03:45→20:07)
[2018-11-28] MEDS: Budesonide Neb 0.25 MG/2 ML IH SCH ×2 (07:18→20:07)
[2018-11-28] MEDS: Aspirin Enteric Coated 81 MG Tablet PO SCH (07:47)
[2018-11-28] MEDS: Furosemide 40 MG TABLET PO SCH (07:47)
[2018-11-28] MEDS: Nicotine 21 MG PATCH.TD24 TD SCH (07:47)
[2018-11-28] MEDS: predniSONE 20 MG TABLET PO SCH (07:47)
[2018-11-28] MEDS: Metoprolol XL (24 HR) Succ 50 MG TAB.ER.24H PO SCH (07:47)
[2018-11-28] MEDS: dilTIAZem HCl 60 MG TABLET PO SCH (07:47)
[2018-11-28] MEDS ORDERED: Cholecalciferol (D-3) 1,000 UNIT (25MCG) TABLET PO SCH (09:00)
[2018-11-28] MEDS: Magnesium Oxide 400 MG TABLET PO SCH (09:55)
[2018-11-28] MEDS: Cholecalciferol (D-3) 1,000 UNIT (25MCG) TABLET PO SCH (09:56)
--- NOTE | 2018-11-28 16:04 | Internal Med Progress Note ---
Hospitalist Progress Note - Encounter Date of Encounter: 11/28/18 Time of Encounter: 11:15 - Subjective Interval History: Ms Cook reports mild improvement regarding her shortness of breath was still working on titrating down her oxygen requirement back to her baseline of 3. GEN: Denies fever, chills or malaise HEENT: Denies headache blurriness, or dysphagia RESP: admits to SOB or cough CV: Denies chest pain or palpitations GI: Denies Nausea, vomiting, diarrhea or constipation Reviewed current in hospital medications with modifications see orders Reviewed Routine labs - Exam Vitals: Temp Pulse Resp BP Pulse Ox 98.1 F 82 19 121/71 92 11/28/18 11:29 11/28/18 11:29 11/28/18 11:29 11/28/18 11:29 11/28/18 11:29 Exam: GEN: NAD, A&O x 3, Pleasant and conversant SKIN: [place] warm acyanotic not jaundice HEART: RRR, slightly tachycardic no murmurs LUNGS: Diminished with scattered wheeze minimal crackles, overall non labored ABDOMEN; Soft, non tender or distended, BS x 4 normactive EXT: No LE edema, Pedal pulses 1+, radial pulses 2+ PSYCH: Mood and affect is appropriate - Assessment and Plan (1) COPD exacerbation Current Visit: Yes Status: Acute Assessment and Plan: Improving secondary to her continuous tobacco use, on prednisone 40 by mouth daily. Oxygen requirement now 3.5 almost close to baseline anticipate discharge tomorrow. Educated patient again about the complications of continued tobacco use which is not limited to frequent exacerbation and hospitalization (2) Acute on chronic respiratory failure with hypercapnia Current Visit: Yes Status: Acute Assessment and Plan: improving, o2 weaned down to 3.5 almost at baseline. Continue BiPAP as needed- Pulmonology recommendations appreciated. - incentive spirometry and peak flow (3) HTN (hypertension) Current Visit: Yes Status: Chronic Assessment and Plan: Normotensive continue home medications (4) SANJUANA (obstructive sleep apnea) Current Visit: Yes Status: Chronic Assessment and Plan: Nocturnal BiPAp. May need to be qualified as an outpatient (5) Chronic heart failure Current Visit: Yes Status: Chronic Assessment and Plan: Patient with acute decompensated HFpEF. total negative balance 4.2 litters so far. continue fluids restrictive strategies to 1.5 litters a day. on furosemide 40mg/IV BID, switch to oral daily weight and strict intake and output. (6) GERD (gastroesophageal reflux disease) Current Visit: Yes Status: Chronic Assessment and Plan: on omeprazole (7) COPD (chronic obstructive pulmonary disease) Current Visit: Yes Status: Chronic Assessment and Plan: Patient being treated for COPD exacerbation see plan as above (8) CAD (coronary artery disease) Current Visit: Yes Status: Chronic Assessment and Plan: On aspirin, ARB toprol and Lipitor she denies chest pain (9) Obesity (BMI 30.0-34.9) Current Visit: Yes Status: Chronic Assessment and Plan: Continue to encourage lifestyle changes (10) Tobacco abuse Current Visit: Yes Status: Chronic Assessment and Plan: Continue to encourage tobacco cessation. Nicotine patch (11) Atrial fibrillation Current Visit: Yes Status: Chronic Assessment and Plan: rate controlled-on Toprol. On rivaroxaban (12) HLD (hyperlipidemia) Current Visit: Yes Status: Chronic Assessment and Plan: on statin DVT Prophylaxis: On xarelto - Time Spent with Patient Total time spent is greater than 50% in coordination of care (as documented) at patient's floor/unit and/or counseling patient: Internal Medicine: Result - Labs CBC & Chem 7: 11/28/18 01:14 11/28/18 01:14 Labs: Short CBC 11/28/18 Range/Units 01:14 WBC 17.1 H (4.3-11.1) K/mcL Hgb 10.6 L (11.5-15.4) g/dL Hct 33.4 L (35.3-44.9) % Plt Count 449 H (140-400) K/mcL Neutrophils # 15.7 H (1.6-8.9) K/mcL BMP 11/28/18 01:14 Sodium 134 L Potassium 4.6 Chloride 89 L Carbon Dioxide 40 H* BUN 38 H Creatinine 1.27 H Glucose 185 H Calcium 8.8 - ABG Interpretation ABG results: ABG ABG pH 7.34 pH Units (7.32-7.45) 11/25/18 09:19 ABG pCO2 69 mmHg (35-45) H 11/25/18 09:19 ABG pO2 80 mmHg (85-104) L 11/25/18 09:19 ABG O2 Saturation 94 % (95-98) L 11/25/18 09:19 PT/INR, D-dimer PT 10.5 Seconds (9.4-12.1) 11/26/18 05:23 Consult Discharge Plan - Plan Referrals: Bigg Sheridan [Primary Care Provider] - 12/06/18 10:00 am () (3) HTN (hypertension) Qualifiers: Hypertension type: essential hypertension Qualified Code(s): I10 - Essential (primary) hypertension (5) Chronic heart failure Qualifiers: Heart failure type: diastolic Qualified Code(s): I50.32 - Chronic diastolic (congestive) heart failure (6) GERD (gastroesophageal reflux disease) Qualifiers: Esophagitis presence: without esophagitis Qualified Code(s): K21.9 - Gastro- esophageal reflux disease without esophagitis (7) COPD (chronic obstructive pulmonary disease) Qualifiers: COPD type: unspecified COPD Qualified Code(s): J44.9 - Chronic obstructive pulmonary disease, unspecified (8) CAD (coronary artery disease) Qualifiers: Qualified Code(s): I25.10 - Atherosclerotic heart disease of [place] coronary artery without angina pectoris (11) Atrial fibrillation Qualifiers: Atrial fibrillation type: paroxysmal Qualified Code(s): I48.0 - Paroxysmal atrial fibrillation (12) HLD (hyperlipidemia) Qualifiers: Hyperlipidemia type: unspecified Qualified Code(s): E78.5 - Hyperlipidemia, unspecified
[2018-11-28] MEDS: *HR* Rivaroxaban 10 MG TABLET PO SCH (17:29)
[2018-11-29] MEDS: ALPRAZolam 0.5 MG TABLET PO PRN (00:12)
[2018-11-29] MEDS: Ipratropium/Albuterol Neb 3 ML IH SCH ×7 (00:18→23:43)
[2018-11-29 04:50] LABS: Basophils % 0.1 %; Hematocrit 35.6 % (35.3-44.9); Hemoglobin 10.9 g/dL (11.5-15.4); Lymphocytes # 1.7 K/mcL (0.6-4.6); Lymphocytes % 10.5 %; Mean Corpuscular HGB Conc 30.6 g/dL (31.6-35.5); Mean Corpuscular Hemoglobin 30.4 pg (28.0-33.3); Mean Corpuscular Volume 99.2 fL (83.0-100.0); Mean Platelet Volume 9.2 fL (9.4-12.4); Monocytes # 1.2 K/mcL (0.0-1.3); Neutrophils # 13.4 K/mcL (1.6-8.9); Platelet Count 411 K/mcL (140-400); Red Blood Count 3.59 M/mcL (3.82-4.97); Red Cell Distribution Width 12.5 % (11.5-14.5); Segmented Neutrophils % 81.4 %; White Blood Count 16.4 K/mcL (4.3-11.1)
[2018-11-29 05:14] LABS: BUN/Creatinine Ratio 38 (6-26); Blood Urea Nitrogen 33 mg/dL (8-23); Calcium 8.9 mg/dL (8.6-10.3); Carbon Dioxide 38 mEq/L (23-29); Chloride 91 mEq/L (98-107); Glucose 134 mg/dL (70-105); Osmolality,Calculated 289 (280-300); Potassium 4.2 mEq/L (3.5-5.1); Sodium 135 mEq/L (136-145); eGFR For African Americans > 60 (> 60); eGFR For Non-African Americans > 60 (> 60)
[2018-11-29] MEDS: Budesonide Neb 0.25 MG/2 ML IH SCH ×2 (07:35→22:24)
[2018-11-29] MEDS: dilTIAZem HCl 60 MG TABLET PO SCH (08:28)
[2018-11-29] MEDS: Furosemide 40 MG TABLET PO SCH (08:28)
[2018-11-29] MEDS: Aspirin Enteric Coated 81 MG Tablet PO SCH (08:28)
[2018-11-29] MEDS: Magnesium Oxide 400 MG TABLET PO SCH (08:28)
[2018-11-29] MEDS: predniSONE 20 MG TABLET PO SCH (08:28)
[2018-11-29] MEDS: Nicotine 21 MG PATCH.TD24 TD SCH (08:29)
[2018-11-29] MEDS: Metoprolol XL (24 HR) Succ 50 MG TAB.ER.24H PO SCH (08:29)
[2018-11-29] MEDS: *HR* Rivaroxaban 10 MG TABLET PO SCH (15:32)
[2018-11-29] MEDS: Furosemide 40 MG/4 ML VIAL IVP SCH (15:33)
--- NOTE | 2018-11-29 16:56 | Internal Med Progress Note ---
Hospitalist Progress Note - Encounter Date of Encounter: 11/29/18 Time of Encounter: 13:15 - Subjective Interval History: Ms Cook is reporting generalized fatigue today GEN: Denies fever, chills or malaise HEENT: Denies headache blurriness, or dysphagia RESP: admits to improving SOB and cough CV: Denies chest pain or palpitations GI: Denies Nausea, vomiting, diarrhea or constipation Reviewed current in hospital medications with modifications see orders Reviewed Routine labs - Exam Vitals: Temp Pulse Resp BP Pulse Ox 98.1 F 84 18 121/71 94 11/29/18 15:17 11/29/18 15:17 11/29/18 15:17 11/29/18 15:17 11/29/18 15:17 Exam: GEN: NAD, A&O x 3, Pleasant and conversant SKIN: [place] warm acyanotic not jaundice HEART: RRR, slightly tachycardic no murmurs LUNGS: Slightly improved aeration of the upper lung field slight wheeze with minimal crackles, overall non labored ABDOMEN; Soft, non tender or distended, BS x 4 normactive EXT: No LE edema, Pedal pulses 1+, radial pulses 2+ PSYCH: Mood and affect is appropriate - Assessment and Plan (1) COPD exacerbation Current Visit: Yes Status: Acute Assessment and Plan: Improving secondary to her continuous tobacco use, on prednisone 40 by mouth daily. Oxygen requirement now 3.5 almost close to baseline anticipate discharge tomorrow. Educated patient again about the complications of continued tobacco use which is not limited to frequent exacerbation and hospitalization (2) Acute on chronic respiratory failure with hypercapnia Current Visit: Yes Status: Acute Assessment and Plan: Patient oximetry requirement was titrated up to high flow suspect component of volume overload we will treat with IV Lasix in addition to her oxygenation. Continue BiPAP as needed- - incentive spirometry and peak flow (3) HTN (hypertension) Current Visit: Yes Status: Chronic Assessment and Plan: Normotensive continue home medications (4) SANJUANA (obstructive sleep apnea) Current Visit: Yes Status: Chronic Assessment and Plan: Nocturnal BiPAp. May need to be qualified as an outpatient (5) Chronic heart failure Current Visit: Yes Status: Chronic Assessment and Plan: Patient with acute decompensated HFpEF. total negative balance 4.7 litters so far. However urine output yesterday diminished with oral Lasix will switch to IV form and a 24 hours and likely DC home on twice a day Lasix continue fluids restrictive strategies to 1.5 litters a day. daily weight and strict intake and output. (6) GERD (gastroesophageal reflux disease) Current Visit: Yes Status: Chronic Assessment and Plan: on omeprazole (7) COPD (chronic obstructive pulmonary disease) Current Visit: Yes Status: Chronic Assessment and Plan: Patient being treated for COPD exacerbation see plan as above (8) CAD (coronary artery disease) Current Visit: Yes Status: Chronic Assessment and Plan: On aspirin, ARB toprol and Lipitor she denies chest pain (9) Obesity (BMI 30.0-34.9) Current Visit: Yes Status: Chronic Assessment and Plan: Continue to encourage lifestyle changes (10) Tobacco abuse Current Visit: Yes Status: Chronic Assessment and Plan: Continue to encourage tobacco cessation. Nicotine patch (11) Atrial fibrillation Current Visit: Yes Status: Chronic Assessment and Plan: rate controlled-on Toprol. On rivaroxaban (12) HLD (hyperlipidemia) Current Visit: Yes Status: Chronic Assessment and Plan: on statin - Time Spent with Patient Total time spent is greater than 50% in coordination of care (as documented) at patient's floor/unit and/or counseling patient: Internal Medicine: Result - Labs CBC & Chem 7: 11/29/18 04:14 11/29/18 04:14 Labs: Short CBC 11/29/18 Range/Units 04:14 WBC 16.4 H (4.3-11.1) K/mcL Hgb 10.9 L (11.5-15.4) g/dL Hct 35.6 (35.3-44.9) % Plt Count 411 H (140-400) K/mcL Neutrophils # 13.4 H (1.6-8.9) K/mcL BMP 11/29/18 04:14 Sodium 135 L Potassium 4.2 Chloride 91 L Carbon Dioxide 38 H BUN 33 H Creatinine 0.87 Glucose 134 H Calcium 8.9 - ABG Interpretation ABG results: ABG ABG pH 7.34 pH Units (7.32-7.45) 11/25/18 09:19 ABG pCO2 69 mmHg (35-45) H 11/25/18 09:19 ABG pO2 80 mmHg (85-104) L 11/25/18 09:19 ABG O2 Saturation 94 % (95-98) L 11/25/18 09:19 PT/INR, D-dimer PT 10.5 Seconds (9.4-12.1) 11/26/18 05:23 Consult Discharge Plan - Plan Referrals: Bigg Sheridan [Primary Care Provider] - 12/06/18 10:00 am () (3) HTN (hypertension) Qualifiers: Hypertension type: essential hypertension Qualified Code(s): I10 - Essential (primary) hypertension (5) Chronic heart failure Qualifiers: Heart failure type: diastolic Qualified Code(s): I50.32 - Chronic diastolic (congestive) heart failure (6) GERD (gastroesophageal reflux disease) Qualifiers: Esophagitis presence: without esophagitis Qualified Code(s): K21.9 - Gastro- esophageal reflux disease without esophagitis (7) COPD (chronic obstructive pulmonary disease) Qualifiers: COPD type: unspecified COPD Qualified Code(s): J44.9 - Chronic obstructive pulmonary disease, unspecified (8) CAD (coronary artery disease) Qualifiers: Qualified Code(s): I25.10 - Atherosclerotic heart disease of [place] coronary artery without angina pectoris (11) Atrial fibrillation Qualifiers: Atrial fibrillation type: paroxysmal Qualified Code(s): I48.0 - Paroxysmal atrial fibrillation (12) HLD (hyperlipidemia) Qualifiers: Hyperlipidemia type: unspecified Qualified Code(s): E78.5 - Hyperlipidemia, unspecified
[2018-11-30 01:25] LABS: Basophils % 0.1 %; Hematocrit 35.4 % (35.3-44.9); Hemoglobin 10.8 g/dL (11.5-15.4); Immature Granulocytes % 1.5 % (0-4); Lymphocytes # 1.4 K/mcL (0.6-4.6); Mean Corpuscular HGB Conc 30.5 g/dL (31.6-35.5); Mean Corpuscular Hemoglobin 29.9 pg (28.0-33.3); Mean Corpuscular Volume 98.1 fL (83.0-100.0); Mean Platelet Volume 8.9 fL (9.4-12.4); Monocytes % 7.1 %; Neutrophils # 11.2 K/mcL (1.6-8.9); Platelet Count 385 K/mcL (140-400); Red Blood Count 3.61 M/mcL (3.82-4.97); Red Cell Distribution Width 12.4 % (11.5-14.5); Segmented Neutrophils % 81.3 %; White Blood Count 13.7 K/mcL (4.3-11.1)
[2018-11-30 01:42] LABS: BUN/Creatinine Ratio 32 (6-26); Blood Urea Nitrogen 30 mg/dL (8-23); Calcium 8.7 mg/dL (8.6-10.3); Carbon Dioxide 42 mEq/L (23-29); Chloride 86 mEq/L (98-107); Glucose 120 mg/dL (70-105); Osmolality,Calculated 283 (280-300); Sodium 133 mEq/L (136-145); eGFR For African Americans > 60 (> 60); eGFR For Non-African Americans 59 (> 60)
[2018-11-30] MEDS: Ipratropium/Albuterol Neb 3 ML IH SCH ×3 (04:07→10:58)
[2018-11-30] MEDS: Budesonide Neb 0.25 MG/2 ML IH SCH (07:27)
[2018-11-30] MEDS: Cholecalciferol (D-3) 1,000 UNIT (25MCG) TABLET PO SCH (09:17)
[2018-11-30] MEDS: Metoprolol XL (24 HR) Succ 50 MG TAB.ER.24H PO SCH (09:17)
[2018-11-30] MEDS: Aspirin Enteric Coated 81 MG Tablet PO SCH (09:17)
[2018-11-30] MEDS: Furosemide 40 MG/4 ML VIAL IVP SCH ×2 (09:17→09:24)
[2018-11-30] MEDS: dilTIAZem HCl 60 MG TABLET PO SCH (09:17)
[2018-11-30] MEDS: Magnesium Oxide 400 MG TABLET PO SCH (09:18)
[2018-11-30] MEDS: Nicotine 21 MG PATCH.TD24 TD SCH (09:18)
[2018-11-30] MEDS: predniSONE 20 MG TABLET PO SCH (09:18)
[2018-11-30 11:16] VITALS: BP 142/92
--- NOTE | 2018-11-30 12:34 | Discharge Summary ---
- NOTES TO OUTPATIENT PROVIDER Notes to Outpatient Provider: Post hospital discharge for COPD exacerbation. Patient will need to be encouraged as an outpatient to ceased tobacco use Orders not resulted at time of discharge: Pending orders 11/26/18 04:00 Urinalysis reflex Microscopic [URIN] AM 0400 11/29/18 18:11 MRSA Surveillance Screen [MOLMIC] Routine Date of Encounter: 11/30/18 Time of Encounter: 12:32 - Discharge Diagnosis (1) COPD exacerbation Priority: Primary Status: Acute Assessment and Plan: Improving secondary to her continuous tobacco use, on prednisone 40 by mouth daily will taper, Oxygen requirement now 3.5 almost close to baseline anticipate discharge tomorrow. Educated patient again about the complications of continued tobacco use which is not limited to frequent exacerbation and hospitalization (2) Acute on chronic respiratory failure with hypercapnia Priority: Primary Status: Acute Assessment and Plan: Patient oximetry requirement was titrated up to high flow suspect component of volume overload we will treat with IV Lasix in addition to her oxygenation. improved with diuresis and back to baseline 3L (3) HTN (hypertension) Priority: Secondary Status: Chronic Assessment and Plan: Normotensive continue home medications Qualifiers: Hypertension type: essential hypertension Qualified Code(s): I10 - Essential (primary) hypertension (4) SANJUANA (obstructive sleep apnea) Priority: Secondary Status: Chronic Assessment and Plan: Recommend sleep study, may need to be qualified as an outpatient (5) Chronic heart failure Priority: Secondary Status: Chronic Assessment and Plan: Patient with acute decompensated HFpEF. total negative balance 5.4 litters. DC home on twice a day Lasix continue fluids restrictive strategies to 1.5 litters a day. daily weight and strict intake and output. Qualifiers: Heart failure type: diastolic Qualified Code(s): I50.32 - Chronic diastolic (congestive) heart failure (6) GERD (gastroesophageal reflux disease) Priority: Secondary Status: Chronic Assessment and Plan: on omeprazole Qualifiers: Esophagitis presence: without esophagitis Qualified Code(s): K21.9 - Gastro-esophageal reflux disease without esophagitis (7) COPD (chronic obstructive pulmonary disease) Priority: Secondary Status: Chronic Assessment and Plan: She reports being compliant with her home inhalers as well as nebulizer treatments Qualifiers: COPD type: unspecified COPD Qualified Code(s): J44.9 - Chronic obstructive pulmonary disease, unspecified (8) CAD (coronary artery disease) Priority: Secondary Status: Chronic Assessment and Plan: On aspirin, ARB toprol and Lipitor she denies chest pain Qualifiers: Qualified Code(s): I25.10 - Atherosclerotic heart disease of [place] coronary artery without angina pectoris (9) Obesity (BMI 30.0-34.9) Priority: Secondary Status: Chronic Assessment and Plan: Continue to encourage lifestyle changes-diet and exercise (10) Tobacco abuse Priority: Secondary Status: Chronic Assessment and Plan: Continue to encourage tobacco cessation. Nicotine patch (11) Atrial fibrillation Priority: Secondary Status: Chronic Assessment and Plan: rate controlled-on Toprol. On rivaroxaban Qualifiers: Atrial fibrillation type: paroxysmal Qualified Code(s): I48.0 - Paroxysmal atrial fibrillation (12) HLD (hyperlipidemia) Priority: Secondary Status: Chronic Assessment and Plan: on statin Qualifiers: Hyperlipidemia type: unspecified Qualified Code(s): E78.5 - Hyperlipidemia, unspecified (13) DVT prophylaxis Priority: Secondary Status: Acute Assessment and Plan: on Xarelto, will be discharged today Hospital course: Ms. Cook is a 68 year old female hospitalized with COPD exacerbation treated with DuoNeb and steroids. She was counseled extensively on tobacco use cessation. Discharge discussed with: patient, nurse, social work, case management Time spent discussing smoking cessation with patient: more than 10 minutes (Educated patient on sequela of events with her tobacco use including not limited to lung cancer frequent hospitalization for COPD exacerbation most patient's triggers are her family members all smoke. She is agreeable to nicotine patches) - Time Spent with Patient Total time spent providing and/or coordinating discharge services:35 mins Specific discharge activities: Please take medications as prescribed, strongly advised and encouraged to quit tobacco use and encourage her family members to smoke outside - Discharge Medications Prescriptions: New Nicotine Patch [Nicoderm] 21 mg TD DAILY #30 patch.td24 Continued Omeprazole [PriLOSEC] 20 mg PO DAILY Aspirin 81 mg PO DAILY tab.chew Atorvastatin [Lipitor] 40 mg PO HS Metoprolol Succinate 50 mg PO DAILY Losartan/Hydrochlorothiazide [Hyzaar 100-25 Tablet] 0.5 tab PO DAILY Duloxetine HCl [Cymbalta] 60 mg PO DAILY Magnesium Oxide 400 mg PO DAILY Cholecalciferol (Vitamin D3) [Dialyvite Vitamin D] 5,000 unit PO DAILY Albuterol Sulfate [Proventil Inhaler] 2 puff IH Q6H PRN #1 inhaler PRN Reason: Shortness Of Breath Azithromycin [Zithromax] 250 mg PO MOWEFR Rivaroxaban [Xarelto] 20 mg PO QPM #30 tablet Oxygen 2 l .ROUTE AD #99 each Revefenacin [Yupelri] 175 mcg IH DAILY Arformoterol Tartrate [Brovana] 15 mcg IH BID Lidocaine Patch [Lidoderm 5% patch] 1 patch TP DAILY PRN PRN Reason: Pain dilTIAZem HCl [Cardizem] 60 mg PO DAILY Ipratropium/Albuterol Neb [Duoneb] 3 ml IH QID PRN #100 inhsol PRN Reason: Dyspnea Budesonide Neb [Pulmicort Neb] 0.25 mg IH BIDR #60 inhsol Changed Torsemide [Demadex] 40 mg PO BID #60 tablet Potassium Chloride 20 mg PO QDPC #30 tab.er.prt predniSONE [PredniSONE] See Taper PO DAILY 9 Days #21 tablet ALPRAZolam [Xanax 0.5 MG Tablet] 0.5 mg PO BID PRN 7 Days #14 tablet PRN Reason: Anxiety Home Medications: Omeprazole [PriLOSEC] 20 mg PO DAILY 08/12/15 [History] Aspirin 81 mg PO DAILY tab.chew 04/06/16 [Rx] Atorvastatin [Lipitor] 40 mg PO HS 01/26/17 [History] Metoprolol Succinate 50 mg PO DAILY 01/26/17 [History] Losartan/Hydrochlorothiazide [Hyzaar 100-25 Tablet] 0.5 tab PO DAILY 11/13/17 [History] Cholecalciferol (Vitamin D3) [Dialyvite Vitamin D] 5,000 unit PO DAILY 06/25/18 [History] Duloxetine HCl [Cymbalta] 60 mg PO DAILY 06/25/18 [History] Magnesium Oxide 400 mg PO DAILY 06/25/18 [History] Albuterol Sulfate [Proventil Inhaler] 2 puff IH Q6H PRN #1 inhaler 07/02/18 [Rx] Azithromycin [Zithromax] 250 mg PO MOWEFR 07/11/18 [History] Oxygen 2 l .ROUTE AD #99 each 07/29/18 [Rx] Rivaroxaban [Xarelto] 20 mg PO QPM #30 tablet 07/29/18 [Rx] Arformoterol Tartrate [Brovana] 15 mcg IH BID 11/25/18 [History] Lidocaine Patch [Lidoderm 5% patch] 1 patch TP DAILY PRN 11/25/18 [History] Revefenacin [Yupelri] 175 mcg IH DAILY 11/25/18 [History] dilTIAZem HCl [Cardizem] 60 mg PO DAILY 11/26/18 [History] ALPRAZolam [Xanax 0.5 MG Tablet] 0.5 mg PO BID PRN 7 Days #14 tablet 11/30/18 [Rx] Budesonide Neb [Pulmicort Neb] 0.25 mg IH BIDR #60 inhsol 11/30/18 [Rx] Ipratropium/Albuterol Neb [Duoneb] 3 ml IH QID PRN #100 inhsol 11/30/18 [Rx] Nicotine Patch [Nicoderm] 21 mg TD DAILY #30 patch.td24 11/30/18 [Rx] Potassium Chloride 20 mg PO QDPC #30 tab.er.prt 11/30/18 [Rx] Torsemide [Demadex] 40 mg PO BID #60 tablet 11/30/18 [Rx] predniSONE [PredniSONE] See Taper PO DAILY 9 Days #21 tablet 11/30/18 [Rx] Allergies/Adverse Reactions: Allergy/AdvReac Type Severity Reaction Status Date / Time No Known Allergies Allergy Verified 05/26/18 14:57 Date of admission: 11/27/18 15:55 Primary care physician: Bigg Sheridan Consults: 11/25/18 09:06 Consult to Pulmonology [CONS] Stat Consulting Provider: [facility] [place] Reason for Consult: Request by Hospitalist. COPD patient with exacerbation. Not responding adequately to BiPap. Time Notified: 09:00 Call Completed: Yes 11/28/18 08:52 Consult to Nurse Navigator [CONS] Routine Comment: COPD Discharging clinician: Malcolm Palumbo Anticipated date of discharge: 11/30/18 - Constitutional Vitals: Temp Pulse Resp BP Pulse Ox 97.8 F 107 18 142/92 99 11/30/18 11:15 11/30/18 11:15 11/30/18 11:15 11/30/18 11:15 11/30/18 11:15 General appearance: Present: A&O X 0 Exam: GEN: NAD, A&O x 3, Pleasant and conversant SKIN: [place] warm acyanotic not jaundice HEART: RRR, no murmurs LUNGS: Diminished but appears CTA no wheeze or crackles, overall non labored ABDOMEN; Soft, non tender or distended, BS x 4 normactive EXT: No LE edema, Pedal pulses 1+, radial pulses 2+ PSYCH: Mood and affect is appropriate - Patient Status Disposition: Home, Self-Care Condition: Good Functional capacity at discharge: independent ambulation Overall status at discharge: patient is back to baseline - Discharge Instructions Instructions: Acute Respiratory Distress Syndrome (DC), Chronic Obstructive Pulmonary Disease (DC) Follow Up With: Bigg Sheridan [Primary Care Provider] - 12/06/18 10:00 am () - Diet and Activity Activity: resume usual activities as tolerated Diet: low fat, low cholesterol, low salt diet
== END 2018-11-30 14:45 | disposition home or self-care (01) | DRG 190 ==
LOC: EMEROOARM 06:26 → INTOOBSV 11:28 → SUATTDRO 11:28 → 2NNU 11:28
PROVIDERS: ADMIT Internal Medicine Nephrology; ATTEND Pharmacist

== ENCOUNTER 2020-04-27 17:36 | Inpatient (IN) ==
[2020-04-27] MEDS ORDERED: Furosemide 40 MG/4 ML VIAL IVP ONE (18:55)
[2020-04-27 19:45] LABS: INR 0.9; Prothrombin Time 10.7 Seconds (9.4-12.1)
[2020-04-27 19:46] LABS: Eosinophils % 0.6 %; Hemoglobin 7.7 g/dL (11.5-15.4)
[2020-04-27 19:48] LABS: Activated Partial Thrombo Time 29.2 Seconds (26.0-36.0); Basophils # 0.1 K/mcL (0.0-0.2); Basophils % 0.3 %; Eosinophils # 0.1 K/mcL (0.0-0.6); Hematocrit 29.8 % (35.3-44.9); Immature Granulocytes % 0.6 % (0-4); Lymphocytes # 1.2 K/mcL (0.6-4.6); Lymphocytes % 6.6 %; Mean Corpuscular HGB Conc 25.8 g/dL (31.6-35.5); Mean Corpuscular Hemoglobin 20.8 pg (28.0-33.3); Mean Corpuscular Volume 80.3 fL (83.0-100.0); Mean Platelet Volume 8.9 fL (9.4-12.4); Monocytes # 1.5 K/mcL (0.0-1.3); Monocytes % 8.1 %; Nucleated Red Blood Cells 0.1 /100 WBC (0); Platelet Count 599 K/mcL (140-400); Red Blood Count 3.71 M/mcL (3.82-4.97); Red Cell Distribution Width 20.3 % (11.5-14.5); Segmented Neutrophils % 83.8 %
[2020-04-27 19:49] LABS: Hypochromasia Present (Not Present); Neutrophils # 15.1 K/mcL (1.6-8.9)
[2020-04-27 20:14] LABS: BUN/Creatinine Ratio 16 (6-26); Blood Urea Nitrogen 9 mg/dL (8-23); Calcium 9.1 mg/dL (8.6-10.3); Carbon Dioxide 36 mEq/L (23-29); Chloride 95 mEq/L (98-107); Glucose 106 mg/dL (70-105); Lipase 17 Units/L (11-82); Osmolality,Calculated 281 (280-300); Potassium 4.3 mEq/L (3.5-5.1); Sodium 136 mEq/L (136-145); Troponin I < 0.03 ng/mL (< 0.04); eGFR For African Americans > 60 (> 60); eGFR For Non-African Americans > 60 (> 60)
[2020-04-27] MEDS ORDERED: Azithromycin 500 MG in 0.9 % Sodium Chloride 250 ML IVPB ONE (20:47)
[2020-04-27] MEDS ORDERED: cefTRIAXone 1,000 MG in 0.9 % Sodium Chloride Mini Bag 100 ML IVPB ONE (20:47)
[2020-04-27 21:24] LABS: Adenovirus Not Detected (Not Detect); Bordetella Pertussis Not Detected (Not Detect); Chlamydophila pneumoniae Not Detected (Not Detect); Coronavirus 229E Not Detected (Not Detect); Coronavirus HKU1 Not Detected (Not Detect); Coronavirus NL63 Not Detected (Not Detect); Coronavirus OC43 Not Detected (Not Detect); Human Metapneumovirus Not Detected (Not Detect); Human Rhinovirus/Enterovirus Not Detected (Not Detect); Influenza A Subtype 2009 H1 Not Detected (Not Detect); Influenza B Not Detected (Not Detect); Mycoplasma pneumoniae Not Detected (Not Detect); Parainfluenza Virus 1 Not Detected (Not Detect); Parainfluenza Virus 2 Not Detected (Not Detect); Parainfluenza Virus 3 Not Detected (Not Detect); Parainfluenza Virus 4 Not Detected (Not Detect); Respiratory Syncytial Virus Not Detected (Not Detect); SARS-CoV-2 Not Detected (Not Detect)
[2020-04-27] MEDS ORDERED: Ondansetron 4 MG/2 ML VIAL IVP PRN (21:37)
[2020-04-27] MEDS ORDERED: Naloxone 0.4 MG/ML INJ IVP PRN (21:37)
[2020-04-27] MEDS ORDERED: Ipratropium/Albuterol Neb 3 ML IH PRN (22:06)
[2020-04-28 01:24] LABS: Hemoglobin 7.2 g/dL (11.5-15.4); Immature Granulocytes % 0.5 % (0-4); Lymphocytes % 7.2 %; Mean Corpuscular Volume 80.5 fL (83.0-100.0)
[2020-04-28 01:25] LABS: Basophils # 0.1 K/mcL (0.0-0.2); Basophils % 0.3 %; Eosinophils # 0.1 K/mcL (0.0-0.6); Eosinophils % 0.6 %; Lymphocytes # 1.2 K/mcL (0.6-4.6); Mean Corpuscular HGB Conc 25.7 g/dL (31.6-35.5); Mean Corpuscular Hemoglobin 20.7 pg (28.0-33.3); Mean Platelet Volume 9.2 fL (9.4-12.4); Monocytes # 1.1 K/mcL (0.0-1.3); Monocytes % 6.5 %; Neutrophils # 14.2 K/mcL (1.6-8.9); Platelet Count 557 K/mcL (140-400); Red Blood Count 3.48 M/mcL (3.82-4.97); Red Cell Distribution Width 20.3 % (11.5-14.5); Segmented Neutrophils % 84.9 %; White Blood Count 16.7 K/mcL (4.3-11.1)
[2020-04-28 01:26] LABS: Immature Reticulocyte % 18.1 % (11.0-38.0); Retculocyte # 0.06 M/mcL (0.05-0.10); Reticulocyte % 1.8 % (1.6-2.8)
[2020-04-28 01:47] LABS: Anisocytosis 2+ (Not Present); Macrocytosis Present (Not Present); Microcytosis Present (Not Present); Platelet Estimate Increased (Normal); Polychromasia 1+ (Not Present)
[2020-04-28 01:48] LABS: BUN/Creatinine Ratio 14 (6-26); Blood Urea Nitrogen 8 mg/dL (8-23); Carbon Dioxide 41 mEq/L (23-29); Chloride 91 mEq/L (98-107); Glucose 111 mg/dL (70-105); Osmolality,Calculated 283 (280-300); Poikilocytosis 1+ (Not Present); Potassium 4.1 mEq/L (3.5-5.1); Sodium 137 mEq/L (136-145); Target Cells 1+ (Not Present); eGFR For African Americans > 60 (> 60); eGFR For Non-African Americans > 60 (> 60)
[2020-04-28 02:06] LABS: Folate 8.7 ng/mL (3.0-16.0)
[2020-04-28 02:12] LABS: Ferritin < 8 ng/mL (10-120); Iron < 10 mcg/dL (50-170); Transferrin 334 mg/dL (203-362); Vitamin B12 > 1500 pg/mL (250-1100)
[2020-04-28] MEDS ORDERED: *HR* LORazepam 0.5 MG TABLET PO PRN (03:59)
[2020-04-28] MEDS ORDERED: *HR* OxyCODONE/APAP 5/325 TABLET PO PRN (04:01)
[2020-04-28] MEDS: *HR* HYDROcodone/Acet 7.5/325 mg TABLET PO PRN ×2 (04:23→21:26)
[2020-04-28] MEDS: Pantoprazole 40 MG VIAL IVP SCH ×2 (04:23→16:46)
[2020-04-28] MEDS ORDERED: Furosemide 40 MG/4 ML VIAL IVP SCH (09:00)
[2020-04-28] MEDS ORDERED: 0.9 % Sodium Chloride 250 ML ONE ×2 (09:37→11:07)
[2020-04-28] MEDS: cefTRIAXone 1,000 MG in 0.9 % Sodium Chloride Mini Bag 100 ML IVPB SCH (09:49)
[2020-04-28] MEDS: predniSONE 20 MG TABLET PO SCH (09:49)
[2020-04-28] MEDS: Azithromycin 500 MG in 0.9 % Sodium Chloride 250 ML IVPB SCH (09:50)
[2020-04-28] MEDS ORDERED: ALPRAZolam 0.5 MG TABLET PO PRN (10:53)
[2020-04-28] MEDS ORDERED: predniSONE 10 MG TABLET PO SCH (11:00)
[2020-04-28] MEDS ORDERED: Iron Sucrose Complex 400 MG in 0.9 % Sodium Chloride 250 ML IVPB ONE (11:11)
[2020-04-28] MEDS: Budesonide/Formoterol 160/4.5 1 PUFF INH IH SCH ×2 (11:29→20:14)
[2020-04-28 16:31] LABS: Hematocrit 31.2 % (35.3-44.9); Hemoglobin 8.6 g/dL (11.5-15.4)
[2020-04-28] MEDS: Furosemide 40 MG/4 ML VIAL IVP SCH (21:16)
[2020-04-29] MEDS: *HR* HYDROcodone/Acet 7.5/325 mg TABLET PO PRN ×2 (05:49→22:49)
[2020-04-29] MEDS: Pantoprazole 40 MG VIAL IVP SCH ×2 (05:50→16:28)
[2020-04-29 07:27] LABS: Mean Platelet Volume 9.4 fL (9.4-12.4); Nucleated Red Blood Cells 0.2 /100 WBC (0)
[2020-04-29 07:28] LABS: Basophils % 0.2 %; Eosinophils # 0.1 K/mcL (0.0-0.6); Eosinophils % 0.8 %; Hematocrit 29.8 % (35.3-44.9); Immature Granulocytes % 0.4 % (0-4); Lymphocytes # 1.7 K/mcL (0.6-4.6); Lymphocytes % 12.2 %; Mean Corpuscular HGB Conc 26.8 g/dL (31.6-35.5); Mean Corpuscular Hemoglobin 21.3 pg (28.0-33.3); Mean Corpuscular Volume 79.5 fL (83.0-100.0); Monocytes # 1.1 K/mcL (0.0-1.3); Monocytes % 7.9 %; Neutrophils # 10.6 K/mcL (1.6-8.9); Platelet Count 474 K/mcL (140-400); Red Blood Count 3.75 M/mcL (3.82-4.97); Red Cell Distribution Width 19.1 % (11.5-14.5); Segmented Neutrophils % 78.5 %; White Blood Count 13.5 K/mcL (4.3-11.1)
[2020-04-29] MEDS: Budesonide/Formoterol 160/4.5 1 PUFF INH IH SCH ×2 (07:31→19:45)
[2020-04-29 08:07] LABS: BUN/Creatinine Ratio 13 (6-26); Blood Urea Nitrogen 7 mg/dL (8-23); Calcium 8.9 mg/dL (8.6-10.3); Carbon Dioxide 40 mEq/L (23-29); Chloride 89 mEq/L (98-107); Glucose 79 mg/dL (70-105); Osmolality,Calculated 277 (280-300); Potassium 3.2 mEq/L (3.5-5.1); Sodium 135 mEq/L (136-145); eGFR For African Americans > 60 (> 60); eGFR For Non-African Americans > 60 (> 60)
[2020-04-29] MEDS ORDERED: Potassium Chloride 40 MEQ, Lidocaine 1% 2 ML in 0.9 % Sodium Chloride 500 ML IVPB ONE (08:16)
[2020-04-29 09:39] LABS: Anisocytosis 1+ (Not Present); Hypochromasia Present (Not Present)
[2020-04-29 09:44] LABS: Platelet Estimate Increased (Normal)
[2020-04-29 09:45] LABS: Poikilocytosis 1+ (Not Present)
[2020-04-29 09:46] LABS: Toxic Granulation Present (Not Present)
[2020-04-29] MEDS: Magnesium Oxide 400 MG TABLET PO SCH (09:58)
[2020-04-29] MEDS: predniSONE 20 MG TABLET PO SCH (09:58)
[2020-04-29] MEDS: Furosemide 40 MG/4 ML VIAL IVP SCH ×2 (10:00→22:46)
[2020-04-29] MEDS: cefTRIAXone 1,000 MG in 0.9 % Sodium Chloride Mini Bag 100 ML IVPB SCH (10:07)
[2020-04-29] MEDS: Azithromycin 500 MG in 0.9 % Sodium Chloride 250 ML IVPB SCH (10:09)
[2020-04-29] MEDS: Cholecalciferol (D-3) 1,000 UNIT (25MCG) TABLET PO SCH (10:41)
[2020-04-30 02:23] LABS: Basophils % 0.2 %; Hemoglobin 8.4 g/dL (11.5-15.4); Immature Granulocytes % 0.4 % (0-4); Nucleated Red Blood Cells 0.2 /100 WBC (0)
[2020-04-30 02:25] LABS: Eosinophils # 0.1 K/mcL (0.0-0.6); Eosinophils % 0.5 %; Hematocrit 31.4 % (35.3-44.9); Lymphocytes # 1.8 K/mcL (0.6-4.6); Lymphocytes % 14.6 %; Mean Corpuscular HGB Conc 26.8 g/dL (31.6-35.5); Mean Corpuscular Hemoglobin 21.1 pg (28.0-33.3); Mean Corpuscular Volume 78.9 fL (83.0-100.0); Monocytes % 7.6 %; Neutrophils # 9.6 K/mcL (1.6-8.9); Platelet Count 477 K/mcL (140-400); Red Blood Count 3.98 M/mcL (3.82-4.97); Segmented Neutrophils % 76.7 %; White Blood Count 12.5 K/mcL (4.3-11.1)
[2020-04-30 02:37] LABS: BUN/Creatinine Ratio 7 (6-26); Blood Urea Nitrogen 4 mg/dL (8-23); Carbon Dioxide 41 mEq/L (23-29); Chloride 89 mEq/L (98-107); Glucose 107 mg/dL (70-105); Osmolality,Calculated 277 (280-300); Potassium 3.7 mEq/L (3.5-5.1); Sodium 135 mEq/L (136-145); eGFR For African Americans > 60 (> 60); eGFR For Non-African Americans > 60 (> 60)
[2020-04-30 03:09] LABS: Anisocytosis 1+ (Not Present); Hypochromasia Present (Not Present); Microcytosis Present (Not Present)
[2020-04-30 03:10] LABS: Platelet Estimate Increased (Normal)
[2020-04-30] MEDS: Pantoprazole 40 MG VIAL IVP SCH (05:01)
[2020-04-30] MEDS: Magnesium Oxide 400 MG TABLET PO SCH (08:22)
[2020-04-30] MEDS: cefTRIAXone 1,000 MG in 0.9 % Sodium Chloride Mini Bag 100 ML IVPB SCH (08:23)
[2020-04-30] MEDS: Azithromycin 500 MG in 0.9 % Sodium Chloride 250 ML IVPB SCH (08:23)
[2020-04-30] MEDS: Furosemide 40 MG/4 ML VIAL IVP SCH (08:23)
[2020-04-30] MEDS: Cholecalciferol (D-3) 1,000 UNIT (25MCG) TABLET PO SCH (08:23)
[2020-04-30] MEDS: predniSONE 20 MG TABLET PO SCH (08:23)
[2020-04-30] MEDS: *HR* HYDROcodone/Acet 7.5/325 mg TABLET PO PRN (08:35)
[2020-04-30] MEDS ORDERED: Lidocaine -MPF 2% 2 ML VIAL ONE (09:09)
[2020-04-30] MEDS: Budesonide/Formoterol 160/4.5 1 PUFF INH IH SCH (10:48)
[2020-04-30 15:28] VITALS: BP 112/69
== END 2020-04-30 17:40 | disposition home or self-care (01) | DRG 871 ==
LOC: EMEROOARM 17:36 → 3NENU 17:36 → SUATTDRO 21:43 → 3NENU 23:06 → 3BNU 04-28 12:30
PROVIDERS: ADMIT Student in an Organized Health Care Education/Training Program; ATTEND Family Medicine
PROC: ENDOEBX (2020-04-30 08:00)

== ENCOUNTER 2020-06-10 11:47 | Inpatient (IN) ==
[2020-06-10] MEDS ORDERED: Aspirin 81 MG TAB.CHEW PO ONE (11:55)
[2020-06-10] MEDS ORDERED: methylPREDNISolone 125 MG/2 ML VIAL IVP ONE (11:56)
[2020-06-10] MEDS ORDERED: Ipratropium/Albuterol Neb 3 ML IH STA (11:56)
[2020-06-10 12:14] LABS: Hematocrit 40.2 % (35.3-44.9); Mean Corpuscular HGB Conc 29.9 g/dL (31.6-35.5); Mean Corpuscular Hemoglobin 26.3 pg (28.0-33.3); Mean Corpuscular Volume 88.2 fL (83.0-100.0); Mean Platelet Volume 8.8 fL (9.4-12.4); Platelet Count 505 K/mcL (140-400); Red Blood Count 4.56 M/mcL (3.82-4.97); Red Cell Distribution Width 23.4 % (11.5-14.5); White Blood Count 10.5 K/mcL (4.3-11.1)
[2020-06-10 12:23] LABS: INR 1.5; Prothrombin Time 16.6 Seconds (9.4-12.1)
[2020-06-10 12:26] LABS: Activated Partial Thrombo Time 42.7 Seconds (26.0-36.0)
[2020-06-10 12:34] LABS: Alanine Aminotransferase 10 Units/L (7-52); Albumin 3.5 g/dL (3.5-5.7); Albumin/Globulin Ratio 1.2 (1.1-2.2); Alkaline Phosphatase 112 Units/L (34-104); Aspartate Amino Transferase 11 Units/L (13-39); BUN/Creatinine Ratio 10 (6-26); Bilirubin,Direct 0.1 mg/dL (0.0-0.2); Bilirubin,Indirect 0.2 mg/dL (0.0-1.0); Bilirubin,Total 0.3 mg/dL (0.3-1.0); Blood Urea Nitrogen 8 mg/dL (8-23); Calcium 9.5 mg/dL (8.6-10.3); Carbon Dioxide 42 mEq/L (23-29); Chloride 92 mEq/L (98-107); Glucose 112 mg/dL (70-105); Lipase 27 Units/L (11-82); Osmolality,Calculated 285 (280-300); Sodium 138 mEq/L (136-145); Total Protein 6.5 g/dL (6.4-8.9); Troponin I 0.04 ng/mL (< 0.04); eGFR For African Americans > 60 (> 60); eGFR For Non-African Americans > 60 (> 60)
[2020-06-10 13:03] LABS: Anisocytosis 2+ (Not Present); Basophils # 0.2 K/mcL (0.0-0.2); Hypochromasia Present (Not Present); Lymphocytes # 3.6 K/mcL (0.6-4.6); Neutrophils # 6.7 K/mcL (1.6-8.9); Platelet Estimate Increased (Normal); Polychromasia 1+ (Not Present); Reactive Lymphocytes Present (Not Present)
[2020-06-10 13:04] LABS: Toxic Granulation Present (Not Present)
[2020-06-10] MEDS ORDERED: Isovue-370 500 ML BOTTLE IVP ONE (13:11)
[2020-06-10 14:14] LABS: Bilirubin,Urine Negative (Negative); Blood,Urine Negative (Negative); Clarity,Urine Clear (Clear); Color,Urine Light-Yellow (Yellow); Glucose,Urine (UA) Normal (Normal); Ketones,Urine Negative (Negative); Leukocyte Esterase,Urine Negative (Negative); Nitrite,Urine Negative (Negative); Protein,Urine Negative (Neg-Trace); Specific Gravity,Urine 1.018 (1.010-1.025); Urobilinogen,Urine Normal (Normal)
[2020-06-10] MEDS ORDERED: cefTRIAXone 1,000 MG in Water for inj. (sterile) 10 ML IVP ONE (14:15)
[2020-06-10] MEDS ORDERED: Azithromycin 500 MG in 0.9 % Sodium Chloride 250 ML IVPB ONE (14:15)
[2020-06-10] MEDS ORDERED: Mag Hydrox/Al Hydrox/Simeth 30 ML UDC PO PRN (16:02)
[2020-06-10] MEDS ORDERED: Ondansetron 4 MG/2 ML VIAL IVP PRN (16:02)
[2020-06-10] MEDS ORDERED: MOM Conc 10 ML UD.LIQ PO PRN (16:02)
[2020-06-10] MEDS ORDERED: Naloxone 0.4 MG/ML INJ IVP PRN (16:02)
[2020-06-10 17:12] LABS: Adenovirus Not Detected (Not Detect); Bordetella Pertussis Not Detected (Not Detect); Coronavirus 229E Not Detected (Not Detect); Coronavirus HKU1 Not Detected (Not Detect); Coronavirus NL63 Not Detected (Not Detect); Coronavirus OC43 Not Detected (Not Detect); Human Metapneumovirus Not Detected (Not Detect); Human Rhinovirus/Enterovirus Not Detected (Not Detect); Influenza A Subtype 2009 H1 Not Detected (Not Detect); Influenza B Not Detected (Not Detect); Parainfluenza Virus 1 Not Detected (Not Detect); Parainfluenza Virus 2 Not Detected (Not Detect); Parainfluenza Virus 3 Not Detected (Not Detect); Parainfluenza Virus 4 Not Detected (Not Detect); Respiratory Syncytial Virus Not Detected (Not Detect); SARS-CoV-2 Not Detected (Not Detect)
[2020-06-10 17:13] LABS: Chlamydophila pneumoniae Not Detected (Not Detect); Mycoplasma pneumoniae Not Detected (Not Detect)
[2020-06-10] MEDS: Torsemide 20 MG TABLET PO SCH (17:33)
[2020-06-10] MEDS: *HR* Rivaroxaban 10 MG TABLET PO SCH (17:33)
[2020-06-10] MEDS: MethylPREDNISolone 40 MG/ML VIAL IVP SCH ×2 (17:33→23:17)
[2020-06-10] MEDS: Ipratropium/Albuterol Neb 3 ML IH SCH ×2 (18:18→22:17)
[2020-06-10] MEDS: Melatonin 3 MG TABLET PO PRN (19:37)
[2020-06-10] MEDS: Acetaminophen 325 MG TABLET PO PRN (23:15)
[2020-06-11] MEDS: Ipratropium/Albuterol Neb 3 ML IH SCH ×4 (04:02→23:04)
[2020-06-11 04:40] LABS: Hematocrit 40.3 % (35.3-44.9); Hemoglobin 11.8 g/dL (11.5-15.4); Mean Corpuscular HGB Conc 29.3 g/dL (31.6-35.5); Mean Corpuscular Volume 88.8 fL (83.0-100.0); Mean Platelet Volume 9.4 fL (9.4-12.4); Platelet Count 493 K/mcL (140-400); Red Blood Count 4.54 M/mcL (3.82-4.97); Red Cell Distribution Width 22.7 % (11.5-14.5); White Blood Count 5.8 K/mcL (4.3-11.1)
[2020-06-11 05:03] LABS: BUN/Creatinine Ratio 13 (6-26); Blood Urea Nitrogen 10 mg/dL (8-23); Carbon Dioxide 40 mEq/L (23-29); Chloride 92 mEq/L (98-107); Glucose 205 mg/dL (70-105); Magnesium 1.6 mg/dL (1.6-2.6); Osmolality,Calculated 291 (280-300); Phosphorous 3.1 mg/dL (2.7-4.5); Potassium 3.2 mEq/L (3.5-5.1); Sodium 138 mEq/L (136-145); eGFR For African Americans > 60 (> 60); eGFR For Non-African Americans > 60 (> 60)
[2020-06-11] MEDS: MethylPREDNISolone 40 MG/ML VIAL IVP SCH ×3 (05:17→20:46)
[2020-06-11] MEDS: Magnesium Oxide 400 MG TABLET PO SCH (08:11)
[2020-06-11] MEDS: *HR* HYDROcodone/Acet 7.5/325 mg TABLET PO PRN ×2 (08:11→23:06)
[2020-06-11] MEDS: ALPRAZolam 0.5 MG TABLET PO PRN (08:11)
[2020-06-11] MEDS: Torsemide 20 MG TABLET PO SCH ×2 (08:12→16:13)
[2020-06-11] MEDS: cefTRIAXone 1,000 MG in Water for inj. (sterile) 10 ML IVP SCH (14:35)
[2020-06-11] MEDS: Azithromycin 500 MG in 0.9 % Sodium Chloride 250 ML IVPB SCH (14:36)
[2020-06-11] MEDS: *HR* Rivaroxaban 10 MG TABLET PO SCH (16:13)
[2020-06-11] MEDS ORDERED: Perflutren Lipid Microsphere 1.3 ML in 0.9 % Sodium Chloride 8.7 ML IVP PRN (16:27)
[2020-06-11] MEDS ORDERED: Magnesium Sulfate 1 GM/102 ML PIGGYBACK IVPB ONE (16:27)
[2020-06-11] MEDS: Melatonin 3 MG TABLET PO PRN (23:06)
[2020-06-12 01:19] LABS: Hematocrit 37.9 % (35.3-44.9); Mean Corpuscular Volume 89.6 fL (83.0-100.0); Mean Platelet Volume 9.5 fL (9.4-12.4); Platelet Count 507 K/mcL (140-400); Red Blood Count 4.23 M/mcL (3.82-4.97); Red Cell Distribution Width 23.1 % (11.5-14.5)
[2020-06-12 01:20] LABS: White Blood Count 17.7 K/mcL (4.3-11.1)
[2020-06-12 01:41] LABS: BUN/Creatinine Ratio 20 (6-26); Blood Urea Nitrogen 20 mg/dL (8-23); Calcium 8.1 mg/dL (8.6-10.3); Carbon Dioxide 41 mEq/L (23-29); Chloride 90 mEq/L (98-107); Glucose 194 mg/dL (70-105); Osmolality,Calculated 292 (280-300); Potassium 3.7 mEq/L (3.5-5.1); Sodium 137 mEq/L (136-145); eGFR For African Americans > 60 (> 60); eGFR For Non-African Americans 56 (> 60)
[2020-06-12] MEDS: Ipratropium/Albuterol Neb 3 ML IH SCH ×4 (03:42→20:13)
[2020-06-12] MEDS: MethylPREDNISolone 40 MG/ML VIAL IVP SCH ×4 (03:44→22:45)
[2020-06-12] MEDS: Torsemide 20 MG TABLET PO SCH ×2 (07:25→15:16)
[2020-06-12] MEDS: *HR* HYDROcodone/Acet 7.5/325 mg TABLET PO PRN ×2 (07:25→20:25)
[2020-06-12] MEDS: Magnesium Oxide 400 MG TABLET PO SCH (07:25)
[2020-06-12] MEDS: ALPRAZolam 0.5 MG TABLET PO PRN ×2 (07:26→20:24)
[2020-06-12] MEDS ORDERED: NON-FORMULARY MEDICATION 1 EACH EACH (Duloxetine Hcl [Cymbalta] 60 MG Capsule.Dr) PO SCH (09:00)
[2020-06-12] MEDS ORDERED: Ketorolac 30 MG/ML VIAL IVP PRN (10:31)
[2020-06-12] MEDS: cefTRIAXone 1,000 MG in Water for inj. (sterile) 10 ML IVP SCH (15:16)
[2020-06-12] MEDS: Azithromycin 500 MG in 0.9 % Sodium Chloride 250 ML IVPB SCH (15:17)
[2020-06-12] MEDS: Patient Taking Own Medication 1 EACH PO SCH (15:17)
[2020-06-12] MEDS: *HR* Rivaroxaban 10 MG TABLET PO SCH (16:20)
[2020-06-13 01:57] LABS: Hematocrit 39.2 % (35.3-44.9); Hemoglobin 11.4 g/dL (11.5-15.4); Mean Corpuscular HGB Conc 29.1 g/dL (31.6-35.5); Mean Corpuscular Hemoglobin 25.8 pg (28.0-33.3); Mean Corpuscular Volume 88.7 fL (83.0-100.0); Mean Platelet Volume 9.1 fL (9.4-12.4); Platelet Count 549 K/mcL (140-400); Red Blood Count 4.42 M/mcL (3.82-4.97); Red Cell Distribution Width 22.5 % (11.5-14.5); White Blood Count 19.9 K/mcL (4.3-11.1)
[2020-06-13 03:32] LABS: BUN/Creatinine Ratio 35 (6-26); Blood Urea Nitrogen 32 mg/dL (8-23); Calcium 8.3 mg/dL (8.6-10.3); Carbon Dioxide 40 mEq/L (23-29); Chloride 87 mEq/L (98-107); Glucose 158 mg/dL (70-105); Osmolality,Calculated 294 (280-300); Potassium 3.4 mEq/L (3.5-5.1); Sodium 137 mEq/L (136-145); eGFR For African Americans > 60 (> 60); eGFR For Non-African Americans > 60 (> 60)
[2020-06-13] MEDS: Ipratropium/Albuterol Neb 3 ML IH SCH ×3 (04:38→15:51)
[2020-06-13] MEDS: MethylPREDNISolone 40 MG/ML VIAL IVP SCH ×4 (05:24→21:16)
[2020-06-13] MEDS: Magnesium Oxide 400 MG TABLET PO SCH (07:23)
[2020-06-13] MEDS: Patient Taking Own Medication 1 EACH PO SCH (07:23)
[2020-06-13] MEDS: Torsemide 20 MG TABLET PO SCH ×2 (07:23→16:59)
[2020-06-13] MEDS ORDERED: Dextrose Gel 15 GM/37.5 ML TUBE PO PRN ×2 (13:04)
[2020-06-13] MEDS ORDERED: D5% in Water 1,000 ML IVC PRN (13:04)
[2020-06-13] MEDS ORDERED: *HR* Dextrose 50 % in Water (Vial) 50 ML VIAL IVP PRN (13:04)
[2020-06-13] MEDS: cefTRIAXone 1,000 MG in Water for inj. (sterile) 10 ML IVP SCH (13:45)
[2020-06-13] MEDS: Azithromycin 250 MG TABLET PO SCH (13:45)
[2020-06-13] MEDS: *HR* HYDROcodone/Acet 7.5/325 mg TABLET PO PRN (16:59)
[2020-06-13] MEDS: Insulin LISPRO 300 UNITS/3 ML VIAL SUBQ SCH ×2 (16:59→21:17)
[2020-06-13] MEDS: *HR* Rivaroxaban 10 MG TABLET PO SCH (16:59)
[2020-06-13] MEDS: Acetaminophen 325 MG TABLET PO PRN (21:15)
[2020-06-13] MEDS: ALPRAZolam 0.5 MG TABLET PO PRN (21:15)
[2020-06-13] MEDS: Levalbuterol Neb 0.63 MG/3 ML IH SCH (22:37)
[2020-06-14] MEDS: Levalbuterol Neb 0.63 MG/3 ML IH SCH ×4 (03:49→21:47)
[2020-06-14] MEDS: MethylPREDNISolone 40 MG/ML VIAL IVP SCH ×3 (04:21→20:58)
[2020-06-14 05:42] LABS: Hematocrit 41.7 % (35.3-44.9); Hemoglobin 12.2 g/dL (11.5-15.4); Mean Corpuscular HGB Conc 29.3 g/dL (31.6-35.5); Mean Corpuscular Hemoglobin 25.9 pg (28.0-33.3); Mean Corpuscular Volume 88.5 fL (83.0-100.0); Mean Platelet Volume 9.5 fL (9.4-12.4); Platelet Count 585 K/mcL (140-400); Red Blood Count 4.71 M/mcL (3.82-4.97); Red Cell Distribution Width 22.1 % (11.5-14.5); White Blood Count 16.6 K/mcL (4.3-11.1)
[2020-06-14 06:08] LABS: BUN/Creatinine Ratio 40 (6-26); Blood Urea Nitrogen 39 mg/dL (8-23); Calcium 8.7 mg/dL (8.6-10.3); Carbon Dioxide 40 mEq/L (23-29); Chloride 87 mEq/L (98-107); Glucose 159 mg/dL (70-105); Magnesium 1.7 mg/dL (1.6-2.6); Osmolality,Calculated 301 (280-300); Potassium 3.4 mEq/L (3.5-5.1); Sodium 139 mEq/L (136-145); eGFR For African Americans > 60 (> 60); eGFR For Non-African Americans 56 (> 60)
[2020-06-14] MEDS: Torsemide 20 MG TABLET PO SCH ×2 (08:26→16:50)
[2020-06-14] MEDS: Azithromycin 250 MG TABLET PO SCH (08:26)
[2020-06-14] MEDS: ALPRAZolam 0.5 MG TABLET PO PRN ×2 (08:26→20:57)
[2020-06-14] MEDS: *HR* HYDROcodone/Acet 7.5/325 mg TABLET PO PRN ×2 (08:26→20:57)
[2020-06-14] MEDS: Patient Taking Own Medication 1 EACH PO SCH (08:26)
[2020-06-14] MEDS: Magnesium Oxide 400 MG TABLET PO SCH (08:27)
[2020-06-14] MEDS: Insulin LISPRO 300 UNITS/3 ML VIAL SUBQ SCH ×4 (08:27→20:58)
[2020-06-14 09:09] LABS: Estimated Average Glucose 111 mg/dl; Hemoglobin A1C 5.5 %
[2020-06-14] MEDS: cefTRIAXone 1,000 MG in Water for inj. (sterile) 10 ML IVP SCH (14:39)
[2020-06-14] MEDS: *HR* Rivaroxaban 10 MG TABLET PO SCH (16:50)
[2020-06-15 03:31] LABS: Hematocrit 41.1 % (35.3-44.9); Mean Corpuscular HGB Conc 29.2 g/dL (31.6-35.5); Mean Corpuscular Hemoglobin 26.3 pg (28.0-33.3); Mean Corpuscular Volume 89.9 fL (83.0-100.0); Mean Platelet Volume 9.5 fL (9.4-12.4); Platelet Count 526 K/mcL (140-400); Red Blood Count 4.57 M/mcL (3.82-4.97); Red Cell Distribution Width 21.8 % (11.5-14.5); White Blood Count 13.7 K/mcL (4.3-11.1)
[2020-06-15 03:54] LABS: BUN/Creatinine Ratio 51 (6-26); Blood Urea Nitrogen 48 mg/dL (8-23); Calcium 8.1 mg/dL (8.6-10.3); Carbon Dioxide 43 mEq/L (23-29); Chloride 86 mEq/L (98-107); Glucose 161 mg/dL (70-105); Osmolality,Calculated 300 (280-300); Potassium 3.4 mEq/L (3.5-5.1); Sodium 137 mEq/L (136-145); eGFR For African Americans > 60 (> 60); eGFR For Non-African Americans 58 (> 60)
[2020-06-15] MEDS: Levalbuterol Neb 0.63 MG/3 ML IH SCH ×4 (03:59→21:58)
[2020-06-15] MEDS: MethylPREDNISolone 40 MG/ML VIAL IVP SCH ×2 (04:07→12:27)
[2020-06-15] MEDS: Torsemide 20 MG TABLET PO SCH ×2 (07:49→17:05)
[2020-06-15] MEDS: Magnesium Oxide 400 MG TABLET PO SCH (07:49)
[2020-06-15] MEDS: Patient Taking Own Medication 1 EACH PO SCH (07:50)
[2020-06-15] MEDS: Insulin LISPRO 300 UNITS/3 ML VIAL SUBQ SCH ×4 (07:57→19:47)
[2020-06-15] MEDS: *HR* HYDROcodone/Acet 7.5/325 mg TABLET PO PRN ×2 (08:09→23:39)
[2020-06-15] MEDS: cefTRIAXone 1,000 MG in Water for inj. (sterile) 10 ML IVP SCH (17:04)
[2020-06-15] MEDS: *HR* Rivaroxaban 10 MG TABLET PO SCH (17:04)
[2020-06-16] MEDS ORDERED: MethylPREDNISolone 40 MG/ML VIAL IVP SCH (00:30)
[2020-06-16] MEDS: Levalbuterol Neb 0.63 MG/3 ML IH SCH ×2 (03:54→11:03)
[2020-06-16 05:07] LABS: Hematocrit 41.3 % (35.3-44.9); Hemoglobin 12.4 g/dL (11.5-15.4); Mean Corpuscular Volume 86.6 fL (83.0-100.0); Mean Platelet Volume 9.6 fL (9.4-12.4); Platelet Count 541 K/mcL (140-400); Red Blood Count 4.77 M/mcL (3.82-4.97); Red Cell Distribution Width 21.2 % (11.5-14.5)
[2020-06-16 05:34] LABS: BUN/Creatinine Ratio 62 (6-26); Blood Urea Nitrogen 58 mg/dL (8-23); Calcium 8.4 mg/dL (8.6-10.3); Carbon Dioxide 42 mEq/L (23-29); Chloride 85 mEq/L (98-107); Glucose 180 mg/dL (70-105); Magnesium 2.1 mg/dL (1.6-2.6); Osmolality,Calculated 305 (280-300); Potassium 3.9 mEq/L (3.5-5.1); Sodium 137 mEq/L (136-145); eGFR For African Americans > 60 (> 60); eGFR For Non-African Americans 60 (> 60)
[2020-06-16] MEDS: Insulin LISPRO 300 UNITS/3 ML VIAL SUBQ SCH ×4 (09:04→22:00)
[2020-06-16] MEDS: predniSONE 20 MG TABLET PO SCH (09:28)
[2020-06-16] MEDS: Torsemide 20 MG TABLET PO SCH ×2 (09:29→16:55)
[2020-06-16] MEDS: Patient Taking Own Medication 1 EACH PO SCH (09:29)
[2020-06-16] MEDS: Magnesium Oxide 400 MG TABLET PO SCH (09:30)
[2020-06-16] MEDS ORDERED: Levalbuterol Neb 0.63 MG/3 ML IH PRN (14:06)
[2020-06-16] MEDS: cefTRIAXone 1,000 MG in Water for inj. (sterile) 10 ML IVP SCH (14:24)
[2020-06-16] MEDS: *HR* Rivaroxaban 10 MG TABLET PO SCH (16:55)
[2020-06-16] MEDS: *HR* HYDROcodone/Acet 7.5/325 mg TABLET PO PRN (22:09)
[2020-06-17] MEDS: Torsemide 20 MG TABLET PO SCH (08:42)
[2020-06-17] MEDS: Magnesium Oxide 400 MG TABLET PO SCH (08:42)
[2020-06-17] MEDS: predniSONE 20 MG TABLET PO SCH (08:42)
[2020-06-17] MEDS: Insulin LISPRO 300 UNITS/3 ML VIAL SUBQ SCH (08:42)
[2020-06-17] MEDS: Patient Taking Own Medication 1 EACH PO SCH (08:43)
[2020-06-17 12:05] VITALS: BP 136/86
== END 2020-06-17 12:34 | disposition home or self-care (01) | DRG 191 ==
LOC: EMEROOARM 11:47 → 2ANU 11:47 → SUATTDRO 14:53 → 2ANU 15:51 → SUATTDRO 06-11 15:00
PROVIDERS: ADMIT Family Medicine; ATTEND Internal Medicine

== ENCOUNTER 2020-09-16 14:57 | Inpatient (IN) ==
[2020-09-16] MEDS ORDERED: Ipratropium/Albuterol Neb 3 ML IH ONE (15:07)
[2020-09-16] MEDS ORDERED: Aspirin 81 MG TAB.CHEW PO ONE (15:15)
[2020-09-16 15:47] LABS: Basophils % 0.1 %; Eosinophils # 0.1 K/mcL (0.0-0.6); Eosinophils % 0.7 %; Hemoglobin 11.2 g/dL (11.5-15.4); Immature Granulocytes % 0.5 % (0-4); Lymphocytes # 1.4 K/mcL (0.6-4.6); Lymphocytes % 7.9 %; Mean Corpuscular HGB Conc 30.3 g/dL (31.6-35.5); Mean Corpuscular Hemoglobin 28.1 pg (28.0-33.3); Mean Platelet Volume 9.8 fL (9.4-12.4); Monocytes # 0.9 K/mcL (0.0-1.3); Monocytes % 5.1 %; Neutrophils # 15.6 K/mcL (1.6-8.9); Platelet Count 416 K/mcL (140-400); Red Blood Count 3.98 M/mcL (3.82-4.97); Red Cell Distribution Width 16.2 % (11.5-14.5); Segmented Neutrophils % 85.7 %; White Blood Count 18.2 K/mcL (4.3-11.1)
[2020-09-16 16:08] LABS: Alanine Aminotransferase 7 Units/L (7-52); Albumin 3.5 g/dL (3.5-5.7); Albumin/Globulin Ratio 1.3 (1.1-2.2); Alkaline Phosphatase 92 Units/L (34-104); Aspartate Amino Transferase 9 Units/L (13-39); BUN/Creatinine Ratio 14 (6-26); Bilirubin,Direct 0.1 mg/dL (0.0-0.2); Bilirubin,Indirect 0.4 mg/dL (0.0-1.0); Bilirubin,Total 0.5 mg/dL (0.3-1.0); Blood Urea Nitrogen 9 mg/dL (8-23); Calcium 9.4 mg/dL (8.6-10.3); Carbon Dioxide 39 mEq/L (23-29); Chloride 91 mEq/L (98-107); Globulin 2.7 g/dL (2.4-3.5); Glucose 203 mg/dL (70-105); Osmolality,Calculated 280 (280-300); Potassium 3.5 mEq/L (3.5-5.1); Sodium 133 mEq/L (136-145); Total Protein 6.2 g/dL (6.4-8.9); Troponin I < 0.03 ng/mL (< 0.04); eGFR For African Americans > 60 (> 60); eGFR For Non-African Americans > 60 (> 60)
[2020-09-16] MEDS ORDERED: Furosemide 40 MG/4 ML VIAL IVP ONE (17:18)
[2020-09-16] MEDS ORDERED: Isovue-370 500 ML BOTTLE IVP ONE (17:18)
[2020-09-16] MEDS ORDERED: Azithromycin 500 MG in 0.9 % Sodium Chloride 250 ML IVPB ONE (17:19)
[2020-09-16] MEDS ORDERED: cefTRIAXone 1,000 MG in Water for inj. (sterile) 10 ML IVP ONE (17:19)
[2020-09-16 18:33] LABS: ABG Base Excess 13 mEq/L (-2 to 3); ABG HCO3 42 mEq/L (21-27); ABG Oxygen Saturation 90 % (95-98); ABG PCO2 71 mmHg (35-45); ABG PH 7.38 pH Units (7.32-7.45); ABG PO2 63 mmHg (85-104); ABG TCO2 44 mEq/L (20-26)
[2020-09-16] MEDS ORDERED: Ondansetron 4 MG/2 ML VIAL IVP PRN (19:45)
[2020-09-16] MEDS ORDERED: Naloxone 0.4 MG/ML INJ IVP PRN (19:45)
[2020-09-16] MEDS ORDERED: Dextrose Gel 15 GM/37.5 ML TUBE PO PRN ×2 (19:50)
[2020-09-16] MEDS ORDERED: D5% in Water 1,000 ML IVC PRN (19:50)
[2020-09-16] MEDS ORDERED: *HR* Dextrose 50 % in Water (Vial) 50 ML VIAL IVP PRN (19:50)
[2020-09-16 21:24] LABS: Estimated Average Glucose 117 mg/dl; Hemoglobin A1C 5.7 %
[2020-09-16] MEDS: Insulin LISPRO 300 UNITS/3 ML VIAL SUBQ SCH ×2 (21:30)
[2020-09-16 22:58] LABS: Bilirubin,Urine Negative (Negative); Blood,Urine Negative (Negative); Clarity,Urine Clear (Clear); Color,Urine Colorless (Yellow); Glucose,Urine (UA) Normal (Normal); Ketones,Urine Negative (Negative); Leukocyte Esterase,Urine Negative (Negative); Nitrite,Urine Negative (Negative); PH,Urine 6.5 pH Units (5.0-8.0); Protein,Urine Negative (Neg-Trace); Specific Gravity,Urine 1.018 (1.010-1.025); Urobilinogen,Urine Normal (Normal)
[2020-09-16 23:32] LABS: Adenovirus Not Detected (Not Detect); Bordetella Pertussis Not Detected (Not Detect); Chlamydophila pneumoniae Not Detected (Not Detect); Coronavirus 229E Not Detected (Not Detect); Coronavirus HKU1 Not Detected (Not Detect); Coronavirus NL63 Not Detected (Not Detect); Coronavirus OC43 Not Detected (Not Detect); Human Metapneumovirus Not Detected (Not Detect); Human Rhinovirus/Enterovirus Not Detected (Not Detect); Influenza A Subtype 2009 H1 Not Detected (Not Detect); Influenza B Not Detected (Not Detect); Mycoplasma pneumoniae Not Detected (Not Detect); Parainfluenza Virus 1 Not Detected (Not Detect); Parainfluenza Virus 2 Not Detected (Not Detect); Parainfluenza Virus 3 Not Detected (Not Detect); Parainfluenza Virus 4 Not Detected (Not Detect); Respiratory Syncytial Virus Not Detected (Not Detect); SARS-CoV-2 Not Detected (Not Detect)
[2020-09-17] MEDS: Ipratropium/Albuterol Neb 3 ML IH PRN ×2 (04:40→17:39)
[2020-09-17] MEDS: MethylPREDNISolone 40 MG/ML VIAL IVP SCH ×2 (06:02→16:13)
[2020-09-17 06:49] LABS: Basophils % 0.1 %; Hematocrit 31.8 % (35.3-44.9); Hemoglobin 10.1 g/dL (11.5-15.4); Immature Granulocytes % 0.2 % (0-4); Lymphocytes # 0.5 K/mcL (0.6-4.6); Lymphocytes % 5.2 %; Mean Corpuscular HGB Conc 31.8 g/dL (31.6-35.5); Mean Corpuscular Hemoglobin 28.8 pg (28.0-33.3); Mean Corpuscular Volume 90.6 fL (83.0-100.0); Monocytes # 0.4 K/mcL (0.0-1.3); Monocytes % 4.2 %; Neutrophils # 8.8 K/mcL (1.6-8.9); Platelet Count 345 K/mcL (140-400); Red Blood Count 3.51 M/mcL (3.82-4.97); Red Cell Distribution Width 16.3 % (11.5-14.5); Segmented Neutrophils % 90.3 %; White Blood Count 9.7 K/mcL (4.3-11.1)
[2020-09-17 06:55] LABS: INR 1.1; Prothrombin Time 12.5 Seconds (9.4-12.1)
[2020-09-17 07:12] LABS: BUN/Creatinine Ratio 22 (6-26); Blood Urea Nitrogen 13 mg/dL (8-23); Calcium 8.8 mg/dL (8.6-10.3); Carbon Dioxide 38 mEq/L (23-29); Chloride 94 mEq/L (98-107); Glucose 121 mg/dL (70-105); Magnesium 1.6 mg/dL (1.6-2.6); Osmolality,Calculated 287 (280-300); Potassium 3.7 mEq/L (3.5-5.1); Sodium 138 mEq/L (136-145); eGFR For African Americans > 60 (> 60); eGFR For Non-African Americans > 60 (> 60)
[2020-09-17 07:20] LABS: Thyroid Stimulating Hormone 0.232 mcIU/mL (0.340-5.600)
[2020-09-17 07:41] LABS: Blood Gas Pressure Support 9 cm H2O; Mixed Venous Blood pCO2 59 mmHg (44-46); Mixed Venous Blood pH 7.43 pH Units (7.34-7.36); Mixed Venous Blood pO2 42 mmHg (35-45)
[2020-09-17] MEDS: Furosemide 40 MG/4 ML VIAL IVP SCH ×2 (08:47→16:13)
[2020-09-17] MEDS ORDERED: cefTRIAXone 1,000 MG in 0.9 % Sodium Chloride Mini Bag 100 ML IVPB SCH (09:00)
[2020-09-17] MEDS ORDERED: Azithromycin 500 MG in 0.9 % Sodium Chloride 250 ML IVPB SCH (09:00)
[2020-09-17] MEDS: Insulin LISPRO 300 UNITS/3 ML VIAL SUBQ SCH ×4 (09:01→19:55)
[2020-09-17 10:40] LABS: Triiodothyronine (T3) Free 2.62 pg/mL (2.50-3.90)
[2020-09-17] MEDS ORDERED: MAGNESIUM OXIDE 400 MG PO PRN (11:30)
[2020-09-17] MEDS: DilTIAZem CD (24hr) 120 MG CAP.ER.24H PO SCH (11:57)
[2020-09-17] MEDS ORDERED: Magnesium Oxide 400 MG TABLET PO PRN (12:15)
[2020-09-17] MEDS: *HR* Rivaroxaban 10 MG TABLET PO SCH (16:12)
[2020-09-17] MEDS: Budesonide Neb 0.25 MG/2 ML IH SCH (23:22)
[2020-09-18] MEDS: Ipratropium/Albuterol Neb 3 ML IH PRN ×5 (00:03→23:49)
[2020-09-18] MEDS: ALPRAZolam 0.5 MG TABLET PO PRN ×2 (00:25→23:47)
[2020-09-18 02:44] LABS: Basophils % 0.1 %; Hematocrit 31.4 % (35.3-44.9); Hemoglobin 9.4 g/dL (11.5-15.4); Immature Granulocytes % 0.6 % (0-4); Lymphocytes # 0.7 K/mcL (0.6-4.6); Lymphocytes % 4.6 %; Mean Corpuscular HGB Conc 29.9 g/dL (31.6-35.5); Mean Corpuscular Hemoglobin 27.7 pg (28.0-33.3); Mean Corpuscular Volume 92.6 fL (83.0-100.0); Mean Platelet Volume 9.5 fL (9.4-12.4); Monocytes # 0.7 K/mcL (0.0-1.3); Monocytes % 5.1 %; Neutrophils # 12.7 K/mcL (1.6-8.9); Platelet Count 369 K/mcL (140-400); Red Blood Count 3.39 M/mcL (3.82-4.97); Red Cell Distribution Width 16.7 % (11.5-14.5); Segmented Neutrophils % 89.6 %; White Blood Count 14.2 K/mcL (4.3-11.1)
[2020-09-18 03:03] LABS: BUN/Creatinine Ratio 30 (6-26); Blood Urea Nitrogen 23 mg/dL (8-23); Calcium 8.6 mg/dL (8.6-10.3); Carbon Dioxide 40 mEq/L (23-29); Chloride 92 mEq/L (98-107); Glucose 169 mg/dL (70-105); Osmolality,Calculated 292 (280-300); Potassium 3.2 mEq/L (3.5-5.1); Sodium 137 mEq/L (136-145); eGFR For African Americans > 60 (> 60); eGFR For Non-African Americans > 60 (> 60)
[2020-09-18] MEDS: MethylPREDNISolone 40 MG/ML VIAL IVP SCH ×2 (06:05→17:50)
[2020-09-18] MEDS: Furosemide 40 MG/4 ML VIAL IVP SCH ×2 (09:14→17:50)
[2020-09-18] MEDS: DilTIAZem CD (24hr) 120 MG CAP.ER.24H PO SCH (09:15)
[2020-09-18] MEDS: Azithromycin 250 MG TABLET PO SCH (09:15)
[2020-09-18] MEDS: Lactobacillus 1 EACH CAP.SPRINK PO SCH (09:15)
[2020-09-18] MEDS: Loratadine 10 MG TABLET PO SCH (09:15)
[2020-09-18] MEDS: Insulin LISPRO 300 UNITS/3 ML VIAL SUBQ SCH ×4 (09:16→22:17)
[2020-09-18] MEDS: Nystatin POWDER 30 GM BOTTLE TP SCH (09:16)
[2020-09-18] MEDS: Budesonide Neb 0.25 MG/2 ML IH SCH ×2 (11:07→20:29)
[2020-09-18] MEDS: *HR* Rivaroxaban 10 MG TABLET PO SCH (17:50)
[2020-09-18] MEDS: Acetaminophen 325 MG TABLET PO PRN (23:47)
[2020-09-19 01:18] LABS: Hematocrit 33.4 % (35.3-44.9); Hemoglobin 10.1 g/dL (11.5-15.4); Immature Granulocytes % 0.6 % (0-4); Lymphocytes # 0.3 K/mcL (0.6-4.6); Lymphocytes % 1.7 %; Mean Corpuscular HGB Conc 30.2 g/dL (31.6-35.5); Mean Corpuscular Hemoglobin 27.8 pg (28.0-33.3); Mean Platelet Volume 9.6 fL (9.4-12.4); Monocytes # 0.2 K/mcL (0.0-1.3); Monocytes % 1.5 %; Neutrophils # 13.8 K/mcL (1.6-8.9); Platelet Count 384 K/mcL (140-400); Red Blood Count 3.63 M/mcL (3.82-4.97); Red Cell Distribution Width 16.6 % (11.5-14.5); Segmented Neutrophils % 96.2 %; White Blood Count 14.4 K/mcL (4.3-11.1)
[2020-09-19 01:36] LABS: BUN/Creatinine Ratio 33 (6-26); Blood Urea Nitrogen 25 mg/dL (8-23); Calcium 8.5 mg/dL (8.6-10.3); Carbon Dioxide 35 mEq/L (23-29); Chloride 90 mEq/L (98-107); Glucose 195 mg/dL (70-105); Magnesium 1.6 mg/dL (1.6-2.6); Osmolality,Calculated 286 (280-300); Phosphorous 3.6 mg/dL (2.7-4.5); Potassium 3.7 mEq/L (3.5-5.1); Sodium 133 mEq/L (136-145); eGFR For African Americans > 60 (> 60); eGFR For Non-African Americans > 60 (> 60)
[2020-09-19] MEDS: Ipratropium/Albuterol Neb 3 ML IH PRN ×4 (04:07→14:35)
[2020-09-19] MEDS: MethylPREDNISolone 40 MG/ML VIAL IVP SCH ×2 (04:51→18:03)
[2020-09-19] MEDS: Insulin LISPRO 300 UNITS/3 ML VIAL SUBQ SCH ×4 (09:35→23:12)
[2020-09-19] MEDS: Loratadine 10 MG TABLET PO SCH (09:35)
[2020-09-19] MEDS: Azithromycin 250 MG TABLET PO SCH (09:35)
[2020-09-19] MEDS: Furosemide 40 MG/4 ML VIAL IVP SCH ×2 (09:36→18:03)
[2020-09-19] MEDS: Lactobacillus 1 EACH CAP.SPRINK PO SCH (09:36)
[2020-09-19] MEDS: DilTIAZem CD (24hr) 120 MG CAP.ER.24H PO SCH (09:36)
[2020-09-19] MEDS: Nystatin POWDER 30 GM BOTTLE TP SCH (09:37)
[2020-09-19] MEDS: Budesonide Neb 0.25 MG/2 ML IH SCH ×2 (11:17→22:52)
[2020-09-19] MEDS: Acetaminophen 325 MG TABLET PO PRN (12:53)
[2020-09-19] MEDS ORDERED: DilTIAZem CD (24hr) 180 MG CAP.ER.24H PO ONE (13:12)
[2020-09-19 14:41] LABS: ABG Base Excess 12 mEq/L (-2 to 3); ABG HCO3 39 mEq/L (21-27); ABG Oxygen Saturation 93 % (95-98); ABG PCO2 62 mmHg (35-45); ABG PH 7.41 pH Units (7.32-7.45); ABG PO2 69 mmHg (85-104); ABG TCO2 41 mEq/L (20-26)
[2020-09-19] MEDS: Levalbuterol Neb 0.63 MG/3 ML IH SCH ×2 (15:41→22:50)
[2020-09-19] MEDS: *HR* Rivaroxaban 10 MG TABLET PO SCH (18:04)
[2020-09-19] MEDS: ALPRAZolam 0.5 MG TABLET PO PRN (23:48)
[2020-09-20] MEDS: Levalbuterol Neb 0.63 MG/3 ML IH SCH ×2 (04:26→10:43)
[2020-09-20 06:02] LABS: Basophils % 0.1 %; Hematocrit 34.3 % (35.3-44.9); Hemoglobin 10.6 g/dL (11.5-15.4); Immature Granulocytes % 0.4 % (0-4); Lymphocytes # 0.4 K/mcL (0.6-4.6); Lymphocytes % 3.4 %; Mean Corpuscular HGB Conc 30.9 g/dL (31.6-35.5); Mean Corpuscular Hemoglobin 28.2 pg (28.0-33.3); Mean Corpuscular Volume 91.2 fL (83.0-100.0); Mean Platelet Volume 9.8 fL (9.4-12.4); Monocytes # 0.4 K/mcL (0.0-1.3); Monocytes % 3.3 %; Neutrophils # 11.9 K/mcL (1.6-8.9); Platelet Count 392 K/mcL (140-400); Red Blood Count 3.76 M/mcL (3.82-4.97); Red Cell Distribution Width 16.5 % (11.5-14.5); Segmented Neutrophils % 92.8 %; White Blood Count 12.8 K/mcL (4.3-11.1)
[2020-09-20] MEDS: MethylPREDNISolone 40 MG/ML VIAL IVP SCH (06:17)
[2020-09-20 06:27] LABS: BUN/Creatinine Ratio 40 (6-26); Blood Urea Nitrogen 33 mg/dL (8-23); Calcium 8.7 mg/dL (8.6-10.3); Carbon Dioxide 38 mEq/L (23-29); Glucose 152 mg/dL (70-105); Magnesium 1.8 mg/dL (1.6-2.6); Phosphorous 4.4 mg/dL (2.7-4.5); eGFR For African Americans > 60 (> 60); eGFR For Non-African Americans > 60 (> 60)
[2020-09-20 06:50] LABS: Chloride 91 mEq/L (98-107); Osmolality,Calculated 288 (280-300); Potassium 3.9 mEq/L (3.5-5.1); Sodium 134 mEq/L (136-145)
[2020-09-20] MEDS: Insulin LISPRO 300 UNITS/3 ML VIAL SUBQ SCH ×4 (08:58→22:28)
[2020-09-20] MEDS: Azithromycin 250 MG TABLET PO SCH (09:07)
[2020-09-20] MEDS: DilTIAZem CD (24hr) 240 MG CAP.ER.24H PO SCH (09:08)
[2020-09-20] MEDS: Loratadine 10 MG TABLET PO SCH (09:08)
[2020-09-20] MEDS: Lactobacillus 1 EACH CAP.SPRINK PO SCH (09:08)
[2020-09-20] MEDS: Furosemide 40 MG/4 ML VIAL IVP SCH ×2 (09:10→17:42)
[2020-09-20] MEDS: Acetaminophen 325 MG TABLET PO PRN (09:15)
[2020-09-20] MEDS: Nystatin POWDER 30 GM BOTTLE TP SCH (09:23)
[2020-09-20] MEDS: Budesonide Neb 0.25 MG/2 ML IH SCH ×2 (10:45→22:54)
[2020-09-20] MEDS ORDERED: Ipratropium/Albuterol Neb 3 ML IH PRN (11:56)
[2020-09-20] MEDS: Nicotine 2 MG GUM BC SCH ×6 (12:48→22:30)
[2020-09-20] MEDS: Nicotine 21 MG PATCH.TD24 TD SCH (13:17)
[2020-09-20] MEDS: Ipratropium/Albuterol Neb 3 ML IH SCH ×4 (15:38→22:54)
[2020-09-20] MEDS: *HR* Rivaroxaban 10 MG TABLET PO SCH (17:42)
[2020-09-20] MEDS ORDERED: Albuterol 2.5 MG/3 ML NEBULIZER IH SCH (22:00)
[2020-09-20] MEDS: ALPRAZolam 0.5 MG TABLET PO PRN (22:29)
[2020-09-21] MEDS: Ipratropium/Albuterol Neb 3 ML IH SCH ×6 (03:44→22:55)
[2020-09-21] MEDS: Nicotine 2 MG GUM BC SCH ×9 (05:35→23:23)
[2020-09-21 07:51] LABS: Hematocrit 33.4 % (35.3-44.9); Hemoglobin 10.1 g/dL (11.5-15.4); Mean Corpuscular HGB Conc 30.2 g/dL (31.6-35.5); Mean Corpuscular Hemoglobin 27.8 pg (28.0-33.3); Mean Platelet Volume 9.7 fL (9.4-12.4); Platelet Count 399 K/mcL (140-400); Red Blood Count 3.63 M/mcL (3.82-4.97); Red Cell Distribution Width 16.3 % (11.5-14.5)
[2020-09-21] MEDS: Insulin LISPRO 300 UNITS/3 ML VIAL SUBQ SCH ×4 (08:16→20:43)
[2020-09-21 08:22] LABS: % Iron Saturation 4 % (15-50); BUN/Creatinine Ratio 40 (6-26); Blood Urea Nitrogen 40 mg/dL (8-23); Calcium 8.7 mg/dL (8.6-10.3); Carbon Dioxide 37 mEq/L (23-29); Chloride 90 mEq/L (98-107); Glucose 84 mg/dL (70-105); Iron 20 mcg/dL (50-170); Magnesium 2.2 mg/dL (1.6-2.6); Osmolality,Calculated 285 (280-300); Phosphorous 3.8 mg/dL (2.7-4.5); Potassium 4.2 mEq/L (3.5-5.1); Sodium 133 mEq/L (136-145); Transferrin 320 mg/dL (203-362); eGFR For African Americans > 60 (> 60); eGFR For Non-African Americans 55 (> 60)
[2020-09-21 08:27] LABS: Ferritin 18 ng/mL (10-120)
[2020-09-21 08:32] LABS: Folate 3.6 ng/mL (3.0-16.0)
[2020-09-21] MEDS: DilTIAZem CD (24hr) 240 MG CAP.ER.24H PO SCH (08:44)
[2020-09-21] MEDS: Lactobacillus 1 EACH CAP.SPRINK PO SCH (08:44)
[2020-09-21] MEDS: Loratadine 10 MG TABLET PO SCH (08:44)
[2020-09-21] MEDS: Furosemide 40 MG/4 ML VIAL IVP SCH (08:44)
[2020-09-21] MEDS: Nystatin POWDER 30 GM BOTTLE TP SCH (08:45)
[2020-09-21] MEDS: Nicotine 21 MG PATCH.TD24 TD SCH (08:45)
[2020-09-21] MEDS ORDERED: MethylPREDNISolone 40 MG/ML VIAL IVP SCH (09:00)
[2020-09-21] MEDS: Budesonide Neb 0.25 MG/2 ML IH SCH ×2 (11:25→22:54)
[2020-09-21] MEDS ORDERED: Saline Nasal Spray 44 ML BOTTLE NS PRN (13:56)
[2020-09-21] MEDS ORDERED: Melatonin 3 MG TABLET PO PRN (14:13)
[2020-09-21] MEDS ORDERED: Iron Sucrose Complex 400 MG in 0.9 % Sodium Chloride 250 ML IVPB ONE (14:43)
[2020-09-21] MEDS: *HR* Rivaroxaban 10 MG TABLET PO SCH (16:52)
[2020-09-21] MEDS: Metoprolol XL (24 HR) Succ 25 MG TAB.ER.24H PO SCH (16:52)
[2020-09-21] MEDS: Artificial Tears SOLN 15 ML BOTTLE BOTH EYES SCH (20:42)
[2020-09-22] MEDS: ALPRAZolam 0.5 MG TABLET PO PRN (00:09)
[2020-09-22 03:13] LABS: Hematocrit 33.2 % (35.3-44.9); Hemoglobin 10.1 g/dL (11.5-15.4); Mean Corpuscular HGB Conc 30.4 g/dL (31.6-35.5); Mean Corpuscular Hemoglobin 27.9 pg (28.0-33.3); Mean Corpuscular Volume 91.7 fL (83.0-100.0); Mean Platelet Volume 9.8 fL (9.4-12.4); Platelet Count 378 K/mcL (140-400); Red Blood Count 3.62 M/mcL (3.82-4.97); Red Cell Distribution Width 16.3 % (11.5-14.5); White Blood Count 13.7 K/mcL (4.3-11.1)
[2020-09-22 03:33] LABS: BUN/Creatinine Ratio 51 (6-26); Blood Urea Nitrogen 40 mg/dL (8-23); Calcium 8.6 mg/dL (8.6-10.3); Carbon Dioxide 35 mEq/L (23-29); Chloride 94 mEq/L (98-107); Glucose 105 mg/dL (70-105); Magnesium 2.2 mg/dL (1.6-2.6); Osmolality,Calculated 286 (280-300); Potassium 4.6 mEq/L (3.5-5.1); Sodium 133 mEq/L (136-145); eGFR For African Americans > 60 (> 60); eGFR For Non-African Americans > 60 (> 60)
[2020-09-22] MEDS: Ipratropium/Albuterol Neb 3 ML IH SCH ×3 (03:42→11:05)
[2020-09-22] MEDS: Nicotine 2 MG GUM BC SCH ×4 (05:38→11:18)
[2020-09-22 06:53] VITALS: BP 131/73
[2020-09-22] MEDS: Budesonide Neb 0.25 MG/2 ML IH SCH (07:26)
[2020-09-22] MEDS: Metoprolol XL (24 HR) Succ 25 MG TAB.ER.24H PO SCH (08:16)
[2020-09-22] MEDS: Lactobacillus 1 EACH CAP.SPRINK PO SCH (08:16)
[2020-09-22] MEDS: Nicotine 21 MG PATCH.TD24 TD SCH (08:18)
[2020-09-22] MEDS: DilTIAZem CD (24hr) 240 MG CAP.ER.24H PO SCH (08:18)
[2020-09-22] MEDS ORDERED: Metoprolol XL (24 HR) Succ 25 MG TAB.ER.24H PO SCH (09:00)
[2020-09-22] MEDS ORDERED: predniSONE 20 MG TABLET PO SCH (09:00)
[2020-09-22] MEDS ORDERED: Torsemide 20 MG TABLET PO SCH (09:00)
[2020-09-22] MEDS ORDERED: Multivit/Ca/Min/Fe/FA 1 TAB TABLET PO SCH (09:00)
[2020-09-22] MEDS: Insulin LISPRO 300 UNITS/3 ML VIAL SUBQ SCH ×2 (09:16→13:15)
[2020-09-22] MEDS: Nystatin POWDER 30 GM BOTTLE TP SCH (09:51)
[2020-09-22] MEDS: Artificial Tears SOLN 15 ML BOTTLE BOTH EYES SCH (09:51)
== END 2020-09-22 13:35 | disposition home health service (06) | DRG 291 ==
LOC: 2NENU 14:57 → EMEROOARM 14:57 → SUATTDRO 18:48 → 2NENU 20:06 → SUATTDRO 09-17 17:23 → 2NENU 09-19 16:53
PROVIDERS: ADMIT Internal Medicine; ATTEND Internal Medicine

== ENCOUNTER 2021-03-09 17:15 | Inpatient (IN) ==
[~2021-03-09 17:15] MED LIST changes: +*HR* Midazolam HCl 2 MG/2 ML VIAL IVP ONE; -*HR* Rocuronium Bromide 100 MG/10 ML VIAL IVC ONE; +*HR* Rocuronium Bromide 50 MG/5 ML VIAL IVP ONE
[2021-03-09] MEDS ORDERED: methylPREDNISolone 125 MG/2 ML VIAL IVP ONE (17:44)
[2021-03-09] MEDS ORDERED: cefTRIAXone 1,000 MG in Water for inj. (sterile) 10 ML IVP ONE (17:44)
[2021-03-09] MEDS ORDERED: Ipratropium/Albuterol Neb 3 ML IH ONE (17:44)
[2021-03-09 17:51] LABS: ABG Base Excess 10 mEq/L (-2 to 3); ABG HCO3 44 mEq/L (21-27); ABG Oxygen Saturation 98 % (95-98); ABG PCO2 134 mmHg (35-45); ABG PH 7.13 pH Units (7.32-7.45); ABG PO2 154 mmHg (85-104); ABG TCO2 48 mEq/L (20-26)
[2021-03-09 18:08] LABS: Basophils % 0.2 %; Immature Granulocytes % 0.7 % (0-4)
[2021-03-09 18:09] LABS: Hematocrit 41.5 % (35.3-44.9); Hemoglobin 11.4 g/dL (11.5-15.4); Lymphocytes # 0.5 K/mcL (0.6-4.6); Lymphocytes % 3.8 %; Mean Corpuscular HGB Conc 27.5 g/dL (31.6-35.5); Mean Corpuscular Hemoglobin 27.5 pg (28.0-33.3); Mean Platelet Volume 9.4 fL (9.4-12.4); Monocytes # 0.8 K/mcL (0.0-1.3); Monocytes % 6.1 %; Neutrophils # 12.1 K/mcL (1.6-8.9); Platelet Count 393 K/mcL (140-400); Red Blood Count 4.15 M/mcL (3.82-4.97); Red Cell Distribution Width 14.2 % (11.5-14.5); Segmented Neutrophils % 89.2 %; White Blood Count 13.6 K/mcL (4.3-11.1)
[2021-03-09 18:16] LABS: INR 0.9; Prothrombin Time 10.2 Seconds (9.4-12.1)
[2021-03-09 18:19] LABS: Activated Partial Thrombo Time 36.5 Seconds (26.0-36.0)
[2021-03-09 18:27] LABS: Troponin I 0.06 ng/mL (< 0.04)
[2021-03-09 18:28] LABS: Alanine Aminotransferase 17 Units/L (7-52); Albumin 3.9 g/dL (3.5-5.7); Albumin/Globulin Ratio 1.3 (1.1-2.2); Alkaline Phosphatase 79 Units/L (34-104); Anisocytosis 1+ (Not Present); Aspartate Amino Transferase 16 Units/L (13-39); BUN/Creatinine Ratio 25 (6-26); Bilirubin,Direct 0.1 mg/dL (0.0-0.2); Bilirubin,Indirect 0.2 mg/dL (0.0-1.0); Bilirubin,Total 0.3 mg/dL (0.3-1.0); Blood Urea Nitrogen 17 mg/dL (8-23); Calcium 9.2 mg/dL (8.6-10.3); Chloride 91 mEq/L (98-107); Glucose 157 mg/dL (70-105); Hypochromasia Present (Not Present); Macrocytosis Present (Not Present); Osmolality,Calculated 293 (280-300); Polychromasia 1+ (Not Present); Potassium 4.3 mEq/L (3.5-5.1); Sodium 139 mEq/L (136-145); Stomatocytes 3+ (Not Present); Total Protein 6.9 g/dL (6.4-8.9); eGFR For African Americans > 60 (> 60); eGFR For Non-African Americans > 60 (> 60)
[2021-03-09 18:29] LABS: Platelet Estimate Normal (Normal)
[2021-03-09 18:31] LABS: Carbon Dioxide 46 mEq/L (23-29)
[2021-03-09 19:37] LABS: ABG Base Excess 13 mEq/L (-2 to 3); ABG HCO3 45 mEq/L (21-27); ABG Oxygen Saturation 87 % (95-98); ABG PCO2 118 mmHg (35-45); ABG PH 7.19 pH Units (7.32-7.45); ABG PO2 70 mmHg (85-104); ABG TCO2 49 mEq/L (20-26)
[2021-03-09] MEDS ORDERED: Furosemide 40 MG/4 ML VIAL IVP ONE (19:43)
[2021-03-09 20:04] LABS: Influenza A PCR Negative (Negative); Influenza B PCR Negative (Negative); Resp. Syncytial Virus PCR Negative (Negative)
[2021-03-09 20:08] LABS: SARS-CoV-2 by PCR (In House) Negative (Negative)
[2021-03-09] MEDS ORDERED: *HR* FentaNYL (PF) 1,000 MCG/20 ML VIAL ONE (20:13)
[2021-03-09] MEDS ORDERED: Isovue-370 500 ML BOTTLE IVP ONE (20:32)
[2021-03-09] MEDS: FentaNYL (PF) 1,000 MCG/100 ML IV.SOLN IVC SCH (20:33)
[2021-03-09] MEDS ORDERED: Naloxone 0.4 MG/ML INJ IVP PRN (21:00)
[2021-03-09] MEDS ORDERED: Acetaminophen 325 MG TABLET PO PRN (21:00)
[2021-03-09] MEDS ORDERED: Artificial Tears SOLN 15 ML BOTTLE BOTH EYES PRN (21:52)
[2021-03-09] MEDS ORDERED: *HR* Metoprolol 5 MG/5 ML VIAL IVP ONE (22:08)
[2021-03-10 01:09] LABS: ABG Base Excess 11 mEq/L (-2 to 3); ABG HCO3 39 mEq/L (21-27); ABG Oxygen Saturation 98 % (95-98); ABG PCO2 68 mmHg (35-45); ABG PH 7.37 pH Units (7.32-7.45); ABG PO2 104 mmHg (85-104); ABG TCO2 41 mEq/L (20-26)
[2021-03-10] MEDS: Artificial Tears SOLN 15 ML BOTTLE BOTH EYES SCH ×6 (02:10→20:53)
[2021-03-10] MEDS: Azithromycin 500 MG in 0.9 % Sodium Chloride 250 ML IVPB SCH (02:12)
[2021-03-10 04:03] LABS: VBG Ionized Calcium 1.12 mmol/L (1.15-1.35)
[2021-03-10 04:03] LABS: Basophils % 0.1 %; Immature Granulocytes % 0.5 % (0-4); Red Cell Distribution Width 14.2 % (11.5-14.5)
[2021-03-10 04:05] LABS: Hematocrit 33.4 % (35.3-44.9); Hemoglobin 9.9 g/dL (11.5-15.4); Lymphocytes # 0.5 K/mcL (0.6-4.6); Lymphocytes % 3.7 %; Mean Corpuscular HGB Conc 29.6 g/dL (31.6-35.5); Mean Corpuscular Hemoglobin 28.7 pg (28.0-33.3); Mean Corpuscular Volume 96.8 fL (83.0-100.0); Monocytes # 0.2 K/mcL (0.0-1.3); Monocytes % 1.9 %; Neutrophils # 11.8 K/mcL (1.6-8.9); Platelet Count 326 K/mcL (140-400); Red Blood Count 3.45 M/mcL (3.82-4.97); Segmented Neutrophils % 93.8 %; White Blood Count 12.6 K/mcL (4.3-11.1)
[2021-03-10 04:19] LABS: INR 1.1; Prothrombin Time 12.2 Seconds (9.4-12.1)
[2021-03-10 04:28] LABS: Alanine Aminotransferase 16 Units/L (7-52); Albumin 3.2 g/dL (3.5-5.7); Albumin/Globulin Ratio 1.4 (1.1-2.2); Alkaline Phosphatase 70 Units/L (34-104); Aspartate Amino Transferase 14 Units/L (13-39); BUN/Creatinine Ratio 31 (6-26); Bilirubin,Indirect 0.3 mg/dL (0.0-1.0); Bilirubin,Total 0.3 mg/dL (0.3-1.0); Blood Urea Nitrogen 22 mg/dL (8-23); Calcium 8.9 mg/dL (8.6-10.3); Carbon Dioxide 44 mEq/L (23-29); Chloride 91 mEq/L (98-107); Globulin 2.3 g/dL (2.4-3.5); Glucose 130 mg/dL (70-105); Magnesium 1.8 mg/dL (1.6-2.6); Osmolality,Calculated 295 (280-300); Phosphorous 3.1 mg/dL (2.7-4.5); Potassium 4.2 mEq/L (3.5-5.1); Sodium 140 mEq/L (136-145); Total Protein 5.5 g/dL (6.4-8.9); eGFR For African Americans > 60 (> 60); eGFR For Non-African Americans > 60 (> 60)
[2021-03-10 04:29] LABS: Troponin I < 0.03 ng/mL (< 0.04)
[2021-03-10] MEDS ORDERED: Ringers Solution, Lactated 500 ML IVC ONE (04:34)
[2021-03-10] MEDS: Ipratropium/Albuterol Neb 3 ML IH SCH ×6 (04:34→23:51)
[2021-03-10 04:40] LABS: ABG Base Excess 10 mEq/L (-2 to 3); ABG HCO3 37 mEq/L (21-27); ABG Oxygen Saturation 95 % (95-98); ABG PCO2 55 mmHg (35-45); ABG PH 7.43 pH Units (7.32-7.45); ABG PO2 78 mmHg (85-104); ABG TCO2 38 mEq/L (20-26); Blood Gas Modality ASSIST CONTROL; Blood Gas VT 350 cc
[2021-03-10] MEDS ORDERED: Ringers Solution, Lactated 500 ML ONE (04:44)
[2021-03-10 04:58] LABS: Hypochromasia Present (Not Present)
[2021-03-10 04:59] LABS: Platelet Estimate Normal (Normal); Stomatocytes 1+ (Not Present)
[2021-03-10] MEDS: MethylPREDNISolone 40 MG/ML VIAL IVP SCH ×2 (05:49→17:39)
[2021-03-10] MEDS: FentaNYL (PF) 1,000 MCG/100 ML IV.SOLN IVC SCH (06:00)
[2021-03-10] MEDS: Pantoprazole 40 MG VIAL IVP SCH (07:52)
[2021-03-10] MEDS: Chlorhexidine Rinse 15 ML MOUTHWASH MM SCH ×2 (07:52→20:53)
[2021-03-10] MEDS: cefTRIAXone 1,000 MG in Water for inj. (sterile) 10 ML IVP SCH (07:52)
[2021-03-10] MEDS: *HR* Metoprolol 5 MG/5 ML VIAL IVP PRN ×3 (09:39→21:03)
[2021-03-10 10:07] LABS: Source of Body Fluid RUL BAL
[2021-03-10 11:43] LABS: Appearance of Body Fluid Cloudy (Clear); Volume of Body Fluid 17 mL
[2021-03-10] MEDS ORDERED: *HR* Rivaroxaban 10 MG TABLET GTUBE SCH (18:00)
[2021-03-11] MEDS: Azithromycin 500 MG in 0.9 % Sodium Chloride 250 ML IVPB SCH (02:19)
[2021-03-11] MEDS: Artificial Tears SOLN 15 ML BOTTLE BOTH EYES SCH ×3 (02:19→07:49)
[2021-03-11] MEDS: Ipratropium/Albuterol Neb 3 ML IH SCH ×6 (03:31→23:52)
[2021-03-11 04:17] LABS: ABG Base Excess 19 mEq/L (-2 to 3); ABG HCO3 47 mEq/L (21-27); ABG Oxygen Saturation 90 % (95-98); ABG PCO2 71 mmHg (35-45); ABG PH 7.43 pH Units (7.32-7.45); ABG PO2 62 mmHg (85-104); ABG TCO2 49 mEq/L (20-26); Blood Gas VT 380 cc
[2021-03-11 05:24] LABS: Magnesium 1.9 mg/dL (1.6-2.6); Phosphorous 2.7 mg/dL (2.7-4.5)
[2021-03-11 05:25] LABS: VBG Ionized Calcium 1.03 mmol/L (1.15-1.35)
[2021-03-11] MEDS: MethylPREDNISolone 40 MG/ML VIAL IVP SCH ×2 (06:02→17:13)
[2021-03-11] MEDS: Pantoprazole 40 MG VIAL IVP SCH (07:48)
[2021-03-11] MEDS: Chlorhexidine Rinse 15 ML MOUTHWASH MM SCH (07:49)
[2021-03-11] MEDS: cefTRIAXone 1,000 MG in Water for inj. (sterile) 10 ML IVP SCH (07:49)
[2021-03-11] MEDS: Calcium Gluconate 1gm/50mL 1 GM/50 ML BAG IVPB SCH ×2 (07:50→09:14)
[2021-03-11] MEDS ORDERED: Calcium Gluconate 1gm/50mL 1 GM/50 ML BAG IVPB ONE ×2 (09:17→09:43)
[2021-03-11] MEDS: *HR* Metoprolol 5 MG/5 ML VIAL IVP PRN (09:23)
[2021-03-11] MEDS ORDERED: Artificial Tears SOLN 15 ML BOTTLE BOTH EYES PRN (09:43)
[2021-03-11] MEDS ORDERED: FentaNYL (PF) 1,000 MCG/100 ML IV.SOLN IVC SCH (09:43)
[2021-03-11] MEDS ORDERED: *HR* Metoprolol 5 MG/5 ML VIAL IVP PRN (09:43)
[2021-03-11] MEDS ORDERED: Naloxone 0.4 MG/ML INJ IVP PRN (09:43)
[2021-03-11] MEDS ORDERED: Acetaminophen 325 MG TABLET PO PRN (09:43)
[2021-03-11] MEDS ORDERED: Magnesium Oxide 400 MG TABLET PO PRN (09:55)
[2021-03-11] MEDS ORDERED: Fluticasone Propionate Nasal 50 MCG/SPRAY BOTTLE NS PRN (09:55)
[2021-03-11] MEDS ORDERED: Nystatin POWDER 30 GM BOTTLE TP PRN (09:55)
[2021-03-11] MEDS: Budesonide Neb 0.5 MG/2 ML IH SCH ×3 (10:56→19:29)
[2021-03-11] MEDS ORDERED: Artificial Tears SOLN 15 ML BOTTLE BOTH EYES SCH (12:00)
[2021-03-11] MEDS: *HR* Rivaroxaban 10 MG TABLET PO SCH (17:13)
[2021-03-11] MEDS ORDERED: *HR* Rivaroxaban 10 MG TABLET GTUBE SCH (18:00)
[2021-03-11] MEDS: Sucralfate 1 GM TABLET PO SCH (20:04)
[2021-03-11] MEDS ORDERED: Chlorhexidine Rinse 15 ML MOUTHWASH MM SCH (21:00)
[2021-03-11] MEDS ORDERED: Albuterol 2.5 MG/3 ML NEBULIZER IH SCH (22:00)
[2021-03-12] MEDS ORDERED: Azithromycin 500 MG in 0.9 % Sodium Chloride 250 ML IVPB SCH (01:00)
[2021-03-12 02:54] LABS: VBG Ionized Calcium 1.18 mmol/L (1.15-1.35)
[2021-03-12 03:07] LABS: Magnesium 1.8 mg/dL (1.6-2.6)
[2021-03-12] MEDS: Ipratropium/Albuterol Neb 3 ML IH SCH ×6 (03:54→23:42)
[2021-03-12] MEDS: MethylPREDNISolone 40 MG/ML VIAL IVP SCH (05:16)
[2021-03-12] MEDS: Budesonide Neb 0.5 MG/2 ML IH SCH ×2 (07:16→19:40)
[2021-03-12] MEDS: Sucralfate 1 GM TABLET PO SCH ×2 (08:26→19:55)
[2021-03-12] MEDS: Azithromycin 250 MG TABLET PO SCH (08:26)
[2021-03-12] MEDS: cefTRIAXone 1,000 MG in Water for inj. (sterile) 10 ML IVP SCH (08:27)
[2021-03-12] MEDS: ALPRAZolam 0.5 MG TABLET PO PRN (08:37)
[2021-03-12] MEDS ORDERED: NON-FORMULARY MEDICATION 1 EACH EACH (Omeprazole 40 MG Capsule.Dr) PO SCH (09:00)
[2021-03-12] MEDS ORDERED: Pantoprazole 40 MG VIAL IVP SCH (09:00)
[2021-03-12 16:34] LABS: Mean Corpuscular Volume 97.1 fL (83.0-100.0)
[2021-03-12 16:35] LABS: Hematocrit 29.7 % (35.3-44.9); Hemoglobin 8.7 g/dL (11.5-15.4); Mean Corpuscular HGB Conc 29.3 g/dL (31.6-35.5); Mean Corpuscular Hemoglobin 28.4 pg (28.0-33.3); Mean Platelet Volume 9.8 fL (9.4-12.4); Platelet Count 319 K/mcL (140-400); Red Blood Count 3.06 M/mcL (3.82-4.97); Red Cell Distribution Width 14.7 % (11.5-14.5); White Blood Count 16.4 K/mcL (4.3-11.1)
[2021-03-12] MEDS: *HR* Rivaroxaban 10 MG TABLET PO SCH (16:55)
[2021-03-12 17:01] LABS: BUN/Creatinine Ratio 31 (6-26); Blood Urea Nitrogen 18 mg/dL (8-23); Calcium 8.4 mg/dL (8.6-10.3); Carbon Dioxide 42 mEq/L (23-29); Chloride 90 mEq/L (98-107); Glucose 143 mg/dL (70-105); Osmolality,Calculated 288 (280-300); Sodium 137 mEq/L (136-145); eGFR For African Americans > 60 (> 60); eGFR For Non-African Americans > 60 (> 60)
[2021-03-13] MEDS: Ipratropium/Albuterol Neb 3 ML IH SCH ×5 (03:46→20:28)
[2021-03-13 05:24] LABS: VBG Ionized Calcium 1.14 mmol/L (1.15-1.35)
[2021-03-13 05:39] LABS: Magnesium 1.8 mg/dL (1.6-2.6); Phosphorous 3.2 mg/dL (2.7-4.5)
[2021-03-13] MEDS: Budesonide Neb 0.5 MG/2 ML IH SCH ×2 (07:28→20:28)
[2021-03-13] MEDS: Azithromycin 250 MG TABLET PO SCH (07:57)
[2021-03-13] MEDS: predniSONE 20 MG TABLET PO SCH (07:57)
[2021-03-13] MEDS: cefTRIAXone 1,000 MG in Water for inj. (sterile) 10 ML IVP SCH (07:57)
[2021-03-13] MEDS: Sucralfate 1 GM TABLET PO SCH ×2 (07:57→20:58)
[2021-03-13 10:10] LABS: BUN/Creatinine Ratio 29 (6-26); Blood Urea Nitrogen 18 mg/dL (8-23); Calcium 8.9 mg/dL (8.6-10.3); Carbon Dioxide > 45 mEq/L (23-29); Chloride 88 mEq/L (98-107); Glucose 115 mg/dL (70-105); Osmolality,Calculated 287 (280-300); Potassium 3.9 mEq/L (3.5-5.1); Sodium 137 mEq/L (136-145); eGFR For African Americans > 60 (> 60); eGFR For Non-African Americans > 60 (> 60)
[2021-03-13 10:11] LABS: Red Cell Distribution Width 14.6 % (11.5-14.5)
[2021-03-13 10:12] LABS: Basophils % 0.1 %; Eosinophils % 0.1 %; Hemoglobin 9.5 g/dL (11.5-15.4); Immature Granulocytes % 1.1 % (0-4); Lymphocytes # 1.4 K/mcL (0.6-4.6); Mean Corpuscular HGB Conc 28.8 g/dL (31.6-35.5); Mean Corpuscular Hemoglobin 28.5 pg (28.0-33.3); Mean Corpuscular Volume 99.1 fL (83.0-100.0); Monocytes # 0.9 K/mcL (0.0-1.3); Monocytes % 5.9 %; Platelet Count 358 K/mcL (140-400); Red Blood Count 3.33 M/mcL (3.82-4.97); Segmented Neutrophils % 83.8 %; White Blood Count 15.5 K/mcL (4.3-11.1)
[2021-03-13 10:42] LABS: Anisocytosis 1+ (Not Present); Hypochromasia Present (Not Present); Platelet Estimate Normal (Normal)
[2021-03-13] MEDS: *HR* Rivaroxaban 10 MG TABLET PO SCH (16:41)
[2021-03-14] MEDS: Ipratropium/Albuterol Neb 3 ML IH SCH ×7 (00:29→23:40)
[2021-03-14] MEDS: Budesonide Neb 0.5 MG/2 ML IH SCH ×2 (07:33→19:45)
[2021-03-14] MEDS: cefTRIAXone 1,000 MG in Water for inj. (sterile) 10 ML IVP SCH (09:00)
[2021-03-14] MEDS: predniSONE 20 MG TABLET PO SCH (09:01)
[2021-03-14] MEDS: Azithromycin 250 MG TABLET PO SCH (09:02)
[2021-03-14] MEDS: Sucralfate 1 GM TABLET PO SCH ×2 (09:02→20:25)
[2021-03-14] MEDS: Nicotine 21 MG PATCH.TD24 TD SCH (10:03)
[2021-03-14] MEDS: *HR* Rivaroxaban 10 MG TABLET PO SCH (17:14)
[2021-03-15] MEDS: Ipratropium/Albuterol Neb 3 ML IH SCH ×6 (03:46→23:41)
[2021-03-15] MEDS: Budesonide Neb 0.5 MG/2 ML IH SCH ×2 (07:31→20:43)
[2021-03-15] MEDS: Nicotine 21 MG PATCH.TD24 TD SCH (08:02)
[2021-03-15] MEDS: cefTRIAXone 1,000 MG in Water for inj. (sterile) 10 ML IVP SCH (08:03)
[2021-03-15] MEDS: predniSONE 20 MG TABLET PO SCH (08:03)
[2021-03-15] MEDS: Sucralfate 1 GM TABLET PO SCH ×2 (08:03→19:36)
[2021-03-15 13:41] LABS: Hemoglobin 9.9 g/dL (11.5-15.4)
[2021-03-15 13:43] LABS: Hematocrit 35.2 % (35.3-44.9); Mean Corpuscular HGB Conc 28.1 g/dL (31.6-35.5); Mean Corpuscular Hemoglobin 27.2 pg (28.0-33.3); Mean Corpuscular Volume 96.7 fL (83.0-100.0); Mean Platelet Volume 9.5 fL (9.4-12.4); Platelet Count 325 K/mcL (140-400); Red Blood Count 3.64 M/mcL (3.82-4.97); White Blood Count 15.8 K/mcL (4.3-11.1)
[2021-03-15 14:06] LABS: BUN/Creatinine Ratio 28 (6-26); Blood Urea Nitrogen 17 mg/dL (8-23); Calcium 9.3 mg/dL (8.6-10.3); Carbon Dioxide 45 mEq/L (23-29); Chloride 89 mEq/L (98-107); Glucose 159 mg/dL (70-105); Magnesium 1.6 mg/dL (1.6-2.6); Osmolality,Calculated 287 (280-300); Phosphorous 2.6 mg/dL (2.7-4.5); Potassium 4.2 mEq/L (3.5-5.1); Sodium 136 mEq/L (136-145); eGFR For African Americans > 60 (> 60); eGFR For Non-African Americans > 60 (> 60)
[2021-03-15] MEDS: *HR* Rivaroxaban 10 MG TABLET PO SCH (17:16)
[2021-03-16] MEDS: Ipratropium/Albuterol Neb 3 ML IH SCH ×7 (04:02→23:02)
[2021-03-16] MEDS: predniSONE 20 MG TABLET PO SCH (09:05)
[2021-03-16] MEDS: cefTRIAXone 1,000 MG in Water for inj. (sterile) 10 ML IVP SCH (09:05)
[2021-03-16] MEDS: Sucralfate 1 GM TABLET PO SCH ×2 (09:05→21:06)
[2021-03-16] MEDS: Nicotine 21 MG PATCH.TD24 TD SCH (09:06)
[2021-03-16] MEDS: Budesonide Neb 0.5 MG/2 ML IH SCH ×2 (11:22→20:09)
[2021-03-16] MEDS ORDERED: Ipratropium/Albuterol Neb 3 ML ONE (11:30)
[2021-03-16] MEDS: Torsemide 20 MG TABLET PO SCH ×2 (14:35→21:11)
[2021-03-16] MEDS: *HR* Rivaroxaban 10 MG TABLET PO SCH (17:00)
[2021-03-16] MEDS ORDERED: Melatonin 3 MG TABLET PO ONE (23:08)
[2021-03-17] MEDS: Ipratropium/Albuterol Neb 3 ML IH SCH ×6 (04:12→23:21)
[2021-03-17] MEDS: Budesonide Neb 0.5 MG/2 ML IH SCH ×2 (08:41→19:49)
[2021-03-17] MEDS: Nicotine 21 MG PATCH.TD24 TD SCH (09:18)
[2021-03-17] MEDS: cefTRIAXone 1,000 MG in Water for inj. (sterile) 10 ML IVP SCH (09:19)
[2021-03-17] MEDS: predniSONE 20 MG TABLET PO SCH (09:20)
[2021-03-17] MEDS: Torsemide 20 MG TABLET PO SCH ×2 (09:20→18:29)
[2021-03-17] MEDS: Sucralfate 1 GM TABLET PO SCH ×2 (09:20→20:11)
[2021-03-17] MEDS: ALPRAZolam 0.5 MG TABLET PO PRN (11:05)
[2021-03-17] MEDS: *HR* Rivaroxaban 10 MG TABLET PO SCH (18:29)
[2021-03-18] MEDS: Ipratropium/Albuterol Neb 3 ML IH SCH ×3 (03:19→11:22)
[2021-03-18 08:37] LABS: Basophils % 0.3 %; Eosinophils # 0.1 K/mcL (0.0-0.6); Eosinophils % 0.8 %; Hematocrit 33.6 % (35.3-44.9); Hemoglobin 9.8 g/dL (11.5-15.4); Immature Granulocytes % 1.3 % (0-4); Lymphocytes # 2.6 K/mcL (0.6-4.6); Lymphocytes % 23.9 %; Mean Corpuscular HGB Conc 29.2 g/dL (31.6-35.5); Mean Corpuscular Hemoglobin 27.4 pg (28.0-33.3); Mean Corpuscular Volume 93.9 fL (83.0-100.0); Mean Platelet Volume 9.9 fL (9.4-12.4); Monocytes # 0.9 K/mcL (0.0-1.3); Monocytes % 7.8 %; Neutrophils # 7.3 K/mcL (1.6-8.9); Platelet Count 273 K/mcL (140-400); Red Blood Count 3.58 M/mcL (3.82-4.97); Red Cell Distribution Width 14.5 % (11.5-14.5); Segmented Neutrophils % 65.9 %; White Blood Count 11.1 K/mcL (4.3-11.1)
[2021-03-18] MEDS: Torsemide 20 MG TABLET PO SCH (09:11)
[2021-03-18] MEDS: Nicotine 21 MG PATCH.TD24 TD SCH (09:12)
[2021-03-18] MEDS: Sucralfate 1 GM TABLET PO SCH (09:12)
[2021-03-18] MEDS: predniSONE 20 MG TABLET PO SCH (09:12)
[2021-03-18 09:42] LABS: BUN/Creatinine Ratio 30 (6-26); Blood Urea Nitrogen 24 mg/dL (8-23); Calcium 8.5 mg/dL (8.6-10.3); Carbon Dioxide > 45 mEq/L (23-29); Chloride 83 mEq/L (98-107); Glucose 91 mg/dL (70-105); Osmolality,Calculated 290 (280-300); Potassium 3.5 mEq/L (3.5-5.1); Sodium 138 mEq/L (136-145); eGFR For African Americans > 60 (> 60); eGFR For Non-African Americans > 60 (> 60)
[2021-03-18] MEDS: Budesonide Neb 0.5 MG/2 ML IH SCH (11:22)
[2021-03-18 11:54] VITALS: BP 112/74; PULSE 99; TEMP 97.8; O2SAT 95
[2021-03-18 14:55] LABS: Adenovirus Not Detected (Not Detect); Bordetella Pertussis Not Detected (Not Detect); Chlamydophila pneumoniae Not Detected (Not Detect); Coronavirus 229E Not Detected (Not Detect); Coronavirus HKU1 Not Detected (Not Detect); Coronavirus NL63 Not Detected (Not Detect); Coronavirus OC43 Not Detected (Not Detect); Human Metapneumovirus Not Detected (Not Detect); Human Rhinovirus/Enterovirus Not Detected (Not Detect); Influenza A Subtype 2009 H1 Not Detected (Not Detect); Influenza B Not Detected (Not Detect); Mycoplasma pneumoniae Not Detected (Not Detect); Parainfluenza Virus 1 Not Detected (Not Detect); Parainfluenza Virus 2 Not Detected (Not Detect); Parainfluenza Virus 3 Not Detected (Not Detect); Parainfluenza Virus 4 Not Detected (Not Detect); Respiratory Syncytial Virus Not Detected (Not Detect); SARS-CoV-2 Not Detected (Not Detect)
== END 2021-03-18 12:41 | disposition other institution (70) | DRG 208 ==
LOC: EMEROOARM 17:15 → SUATTDRO 22:53 → ICNU 22:53 → 3BNU 03-11 13:51
PROVIDERS: ADMIT Family Medicine; ATTEND Internal Medicine

== ENCOUNTER 2021-05-04 12:39 | Inpatient (IN) ==
[2021-05-04] MEDS ORDERED: Morphine Sulfate 2 MG/ML SYRINGE IVP ONE ×2 (13:33→17:30)
[2021-05-04 14:07] LABS: Basophils % 0.4 %; Eosinophils # 0.3 K/mcL (0.0-0.6); Eosinophils % 3.1 %; Hematocrit 28.2 % (35.3-44.9); Hemoglobin 7.6 g/dL (11.5-15.4); Immature Granulocytes % 0.4 % (0-4); Mean Corpuscular Hemoglobin 23.5 pg (28.0-33.3); Mean Corpuscular Volume 87.3 fL (83.0-100.0); Monocytes # 0.6 K/mcL (0.0-1.3); Platelet Count 549 K/mcL (140-400); Red Blood Count 3.23 M/mcL (3.82-4.97); Red Cell Distribution Width 15.2 % (11.5-14.5); Segmented Neutrophils % 80.1 %; White Blood Count 10.2 K/mcL (4.3-11.1)
[2021-05-04 14:08] LABS: Neutrophils # 8.2 K/mcL (1.6-8.9)
[2021-05-04 14:12] LABS: BUN/Creatinine Ratio 14 (6-26); Blood Urea Nitrogen 9 mg/dL (8-23); Carbon Dioxide 35 mEq/L (23-29); Chloride 94 mEq/L (98-107); Glucose 131 mg/dL (70-105); Osmolality,Calculated 278 (280-300); Potassium 3.9 mEq/L (3.5-5.1); Sodium 134 mEq/L (136-145); eGFR For African Americans > 60 (> 60); eGFR For Non-African Americans > 60 (> 60)
[2021-05-04 14:53] LABS: Anisocytosis 1+ (Not Present); Hypochromasia Present (Not Present)
[2021-05-04] MEDS ORDERED: Naloxone 0.4 MG/ML INJ IVP PRN (16:57)
[2021-05-04] MEDS ORDERED: Ondansetron 4 MG/2 ML VIAL IVP PRN (16:57)
[2021-05-04] MEDS ORDERED: Morphine Sulfate 2 MG/ML SYRINGE IVP PRN (18:29)
[2021-05-04] MEDS: Ipratropium/Albuterol Neb 3 ML IH PRN (20:01)
[2021-05-04] MEDS: *HR* OxyCODONE Immed Rel 5 MG TABLET PO PRN (20:01)
[2021-05-04 20:32] LABS: Adenovirus Not Detected (Not Detect); Bordetella Pertussis Not Detected (Not Detect); Chlamydophila pneumoniae Not Detected (Not Detect); Coronavirus 229E Not Detected (Not Detect); Coronavirus HKU1 Not Detected (Not Detect); Coronavirus NL63 Not Detected (Not Detect); Coronavirus OC43 Not Detected (Not Detect); Human Metapneumovirus Not Detected (Not Detect); Human Rhinovirus/Enterovirus Not Detected (Not Detect); Influenza A Subtype 2009 H1 Not Detected (Not Detect); Influenza B Not Detected (Not Detect); Mycoplasma pneumoniae Not Detected (Not Detect); Parainfluenza Virus 1 Not Detected (Not Detect); Parainfluenza Virus 2 Not Detected (Not Detect); Parainfluenza Virus 3 Not Detected (Not Detect); Parainfluenza Virus 4 Not Detected (Not Detect); Respiratory Syncytial Virus Not Detected (Not Detect); SARS-CoV-2 Not Detected (Not Detect)
[2021-05-05] MEDS: *HR* OxyCODONE Immed Rel 5 MG TABLET PO PRN ×2 (02:50→08:12)
[2021-05-05 05:17] LABS: INR 1.2; Prothrombin Time 12.9 Seconds (9.4-12.1)
[2021-05-05 05:29] LABS: Basophils # 0.1 K/mcL (0.0-0.2); Basophils % 0.4 %; Eosinophils # 0.1 K/mcL (0.0-0.6); Eosinophils % 0.7 %; Hematocrit 22.8 % (35.3-44.9); Hemoglobin 6.2 g/dL (11.5-15.4); Immature Granulocytes % 0.4 % (0-4); Lymphocytes % 7.9 %; Mean Corpuscular HGB Conc 27.2 g/dL (31.6-35.5); Mean Corpuscular Hemoglobin 23.7 pg (28.0-33.3); Mean Platelet Volume 10.2 fL (9.4-12.4); Monocytes % 7.3 %; Neutrophils # 10.8 K/mcL (1.6-8.9); Platelet Count 617 K/mcL (140-400); Red Blood Count 2.62 M/mcL (3.82-4.97); Red Cell Distribution Width 15.3 % (11.5-14.5); Segmented Neutrophils % 83.3 %
[2021-05-05 05:38] LABS: BUN/Creatinine Ratio 22 (6-26); Blood Urea Nitrogen 12 mg/dL (8-23); Calcium 8.6 mg/dL (8.6-10.3); Carbon Dioxide 34 mEq/L (23-29); Chloride 96 mEq/L (98-107); Glucose 119 mg/dL (70-105); Magnesium 1.7 mg/dL (1.6-2.6); Osmolality,Calculated 271 (280-300); Potassium 3.8 mEq/L (3.5-5.1); Sodium 130 mEq/L (136-145); eGFR For African Americans > 60 (> 60); eGFR For Non-African Americans > 60 (> 60)
[2021-05-05 05:44] LABS: % Iron Saturation 2 % (15-50); Iron 11 mcg/dL (50-170); Transferrin 334 mg/dL (203-362)
[2021-05-05 05:56] LABS: Ferritin 9 ng/mL (10-120)
[2021-05-05 06:02] LABS: Folate 15.9 ng/mL (3.0-16.0)
[2021-05-05 07:22] LABS: Anisocytosis 1+ (Not Present); Hypochromasia Present (Not Present)
[2021-05-05] MEDS ORDERED: 0.9 % Sodium Chloride 250 ML IVC SCH (07:45)
[2021-05-05] MEDS: Nicotine 14 MG PATCH.TD24 TD SCH (09:00)
[2021-05-05] MEDS ORDERED: Albuterol 2.5 MG/3 ML NEBULIZER IH PRN (10:58)
[2021-05-05] MEDS: Ipratropium/Albuterol Neb 3 ML IH PRN ×2 (11:29→19:33)
[2021-05-05] MEDS ORDERED: CeFAZolin Syr 2,000MG/20 ML 2,000 MG/20 ML SYRINGE IVPB ONE (11:48)
[2021-05-05] MEDS ORDERED: Famotidine 20 MG/2 ML VIAL IVP ONE (11:51)
[2021-05-05] MEDS ORDERED: Acetaminophen IV 1,000 MG/100 ML BAG IVPB ONE (11:51)
[2021-05-05] MEDS ORDERED: Lidocaine -MPF 2% 5 ML VIAL ONE (12:05)
[2021-05-05] MEDS ORDERED: *HR* FentaNYL (PF) 100 MCG/2 ML VIAL ONE (12:05)
[2021-05-05] MEDS ORDERED: *HR* Propofol 200 MG/20 ML VIAL IVP ONE (12:05)
[2021-05-05] MEDS ORDERED: *HR* Midazolam HCl 2 MG/2 ML VIAL ONE (12:05)
[2021-05-05] MEDS ORDERED: *HR* Rocuronium Bromide 50 MG/5 ML VIAL ONE (12:05)
[2021-05-05] MEDS ORDERED: Ondansetron 4 MG/2 ML VIAL ONE (12:05)
[2021-05-05] MEDS ORDERED: Heparin 1,000 UNITS/500 mL 500 ML ONE (12:36)
[2021-05-05 13:26] LABS: ABG Base Excess 8 mEq/L (-2 to 3); ABG Chloride 91 mEq/L (98-107); ABG Glucose 95 mg/dL (60-95); ABG HCO3 32 mEq/L (21-27); ABG Ionized Calcium 1.12 mmol/L (1.15-1.35); ABG Oxygen Saturation 100 % (95-98); ABG PCO2 41 mmHg (35-45); ABG PO2 331 mmHg (85-104); ABG TCO2 33 mEq/L (20-26)
[2021-05-05 13:53] LABS: Hematocrit 19.6 % (35.3-44.9)
[2021-05-05] MEDS ORDERED: Sugammadex Sodium 200 MG/2 ML VIAL IV ONE (13:55)
[2021-05-05 13:58] LABS: Hemoglobin 5.8 g/dL (11.5-15.4)
[2021-05-05] MEDS ORDERED: Naloxone 0.4 MG/ML INJ ONE (14:31)
[2021-05-05] MEDS ORDERED: Naloxone 0.4 MG/ML INJ IVP PRN (17:31)
[2021-05-05] MEDS ORDERED: Artificial Tears SOLN 15 ML BOTTLE BOTH EYES PRN (17:31)
[2021-05-05] MEDS: FentaNYL (PF) 1,000 MCG/100 ML IV.SOLN IVC SCH (17:57)
[2021-05-05 18:40] LABS: Basophils % 0.1 %; Hematocrit 30.7 % (35.3-44.9); Immature Granulocytes % 0.5 % (0-4); Lymphocytes # 0.2 K/mcL (0.6-4.6); Lymphocytes % 1.2 %; Mean Corpuscular HGB Conc 29.6 g/dL (31.6-35.5); Mean Corpuscular Hemoglobin 25.9 pg (28.0-33.3); Mean Corpuscular Volume 87.5 fL (83.0-100.0); Mean Platelet Volume 9.7 fL (9.4-12.4); Monocytes # 0.5 K/mcL (0.0-1.3); Monocytes % 3.4 %; Neutrophils # 14.5 K/mcL (1.6-8.9); Platelet Count 480 K/mcL (140-400); Red Blood Count 3.51 M/mcL (3.82-4.97); Red Cell Distribution Width 15.1 % (11.5-14.5); Segmented Neutrophils % 94.8 %; White Blood Count 15.3 K/mcL (4.3-11.1)
[2021-05-05 18:41] LABS: Hemoglobin 9.1 g/dL (11.5-15.4)
[2021-05-05 18:58] LABS: BUN/Creatinine Ratio 20 (6-26); Blood Urea Nitrogen 10 mg/dL (8-23); Calcium 7.9 mg/dL (8.6-10.3); Carbon Dioxide 29 mEq/L (23-29); Chloride 98 mEq/L (98-107); Glucose 143 mg/dL (70-105); Osmolality,Calculated 280 (280-300); Potassium 4.3 mEq/L (3.5-5.1); Sodium 134 mEq/L (136-145); eGFR For African Americans > 60 (> 60); eGFR For Non-African Americans > 60 (> 60)
[2021-05-05 20:30] LABS: ABG Base Excess 5 mEq/L (-2 to 3); ABG HCO3 32 mEq/L (21-27); ABG Oxygen Saturation 88 % (95-98); ABG PCO2 63 mmHg (35-45); ABG PH 7.32 pH Units (7.32-7.45); ABG PO2 61 mmHg (85-104); ABG TCO2 34 mEq/L (20-26); Blood Gas VT 420 cc
[2021-05-05] MEDS: Chlorhexidine Rinse 15 ML MOUTHWASH MM SCH (20:49)
[2021-05-05] MEDS: Artificial Tears SOLN 15 ML BOTTLE BOTH EYES SCH ×2 (20:49→23:46)
[2021-05-06] MEDS: Artificial Tears SOLN 15 ML BOTTLE BOTH EYES SCH ×5 (03:22→19:56)
[2021-05-06 03:48] LABS: BUN/Creatinine Ratio 19 (6-26); Blood Urea Nitrogen 11 mg/dL (8-23); Calcium 8.2 mg/dL (8.6-10.3); Carbon Dioxide 34 mEq/L (23-29); Chloride 97 mEq/L (98-107); Glucose 127 mg/dL (70-105); Osmolality,Calculated 283 (280-300); Potassium 3.8 mEq/L (3.5-5.1); Sodium 136 mEq/L (136-145); eGFR For African Americans > 60 (> 60); eGFR For Non-African Americans > 60 (> 60)
[2021-05-06 04:48] LABS: Basophils % 0.1 %; Hematocrit 30.2 % (35.3-44.9); Immature Granulocytes % 0.4 % (0-4); Lymphocytes # 0.4 K/mcL (0.6-4.6); Lymphocytes % 2.4 %; Mean Corpuscular HGB Conc 29.8 g/dL (31.6-35.5); Mean Corpuscular Hemoglobin 25.9 pg (28.0-33.3); Mean Platelet Volume 10.1 fL (9.4-12.4); Monocytes # 0.9 K/mcL (0.0-1.3); Monocytes % 5.6 %; Neutrophils # 14.3 K/mcL (1.6-8.9); Platelet Count 556 K/mcL (140-400); Red Blood Count 3.47 M/mcL (3.82-4.97); Red Cell Distribution Width 15.4 % (11.5-14.5); Segmented Neutrophils % 91.5 %; White Blood Count 15.7 K/mcL (4.3-11.1)
[2021-05-06 04:53] LABS: ABG Base Excess 7 mEq/L (-2 to 3); ABG HCO3 35 mEq/L (21-27); ABG Oxygen Saturation 91 % (95-98); ABG PCO2 68 mmHg (35-45); ABG PH 7.31 pH Units (7.32-7.45); ABG PO2 69 mmHg (85-104); ABG TCO2 37 mEq/L (20-26); Blood Gas VT 420 cc
[2021-05-06] MEDS: Chlorhexidine Rinse 15 ML MOUTHWASH MM SCH ×2 (08:08→19:58)
[2021-05-06] MEDS: Nicotine 14 MG PATCH.TD24 TD SCH (08:08)
[2021-05-06] MEDS: MethylPREDNISolone 40 MG/ML VIAL IVP SCH ×2 (08:09→18:25)
[2021-05-06] MEDS ORDERED: Apixaban 5 MG TABLET PO SCH (09:00)
[2021-05-06] MEDS: Acetaminophen 325 MG TABLET PO PRN ×2 (12:05→18:31)
[2021-05-06] MEDS: *HR* OxyCODONE Immed Rel 5 MG TABLET PO PRN ×3 (12:05→22:25)
[2021-05-06] MEDS: Pantoprazole 40 MG in 0.9 % Sodium Chloride Mini Bag 100 ML IVC SCH ×2 (12:10→17:10)
[2021-05-06 16:02] LABS: Hematocrit 30.3 % (35.3-44.9); Hemoglobin 9.2 g/dL (11.5-15.4)
[2021-05-06] MEDS ORDERED: Famotidine 20 MG/2 ML VIAL IVP SCH (18:00)
[2021-05-06] MEDS ORDERED: *HR* Rivaroxaban 10 MG TABLET PO SCH (18:00)
[2021-05-06] MEDS: FentaNYL (PF) 1,000 MCG/100 ML IV.SOLN IVC SCH (18:06)
[2021-05-06] MEDS ORDERED: ALPRAZolam 0.5 MG TABLET PO PRN (18:37)
[2021-05-06] MEDS ORDERED: Magnesium Oxide 400 MG TABLET PO PRN (18:37)
[2021-05-06] MEDS: Metoprolol XL (24 HR) Succ 25 MG TAB.ER.24H PO SCH (19:58)
[2021-05-06] MEDS: Torsemide 20 MG TABLET PO SCH (19:58)
[2021-05-06] MEDS: Budesonide Neb 0.5 MG/2 ML IH SCH (22:14)
[2021-05-07] MEDS: Artificial Tears SOLN 15 ML BOTTLE BOTH EYES SCH ×3 (01:41→08:38)
[2021-05-07] MEDS: MethylPREDNISolone 40 MG/ML VIAL IVP SCH (05:27)
[2021-05-07] MEDS: Budesonide Neb 0.5 MG/2 ML IH SCH ×2 (08:00→23:08)
[2021-05-07] MEDS: Ipratropium/Albuterol Neb 3 ML IH PRN (08:03)
[2021-05-07] MEDS: Torsemide 20 MG TABLET PO SCH ×2 (08:37→17:23)
[2021-05-07] MEDS: Metoprolol XL (24 HR) Succ 25 MG TAB.ER.24H PO SCH (08:37)
[2021-05-07] MEDS: Chlorhexidine Rinse 15 ML MOUTHWASH MM SCH (08:38)
[2021-05-07] MEDS: Nicotine 14 MG PATCH.TD24 TD SCH (08:38)
[2021-05-07] MEDS ORDERED: NON-FORMULARY MEDICATION 1 EACH EACH (Omeprazole 40 MG Capsule.Dr) PO SCH (09:00)
[2021-05-07 09:29] LABS: Hematocrit 33.2 % (35.3-44.9); Hemoglobin 9.7 g/dL (11.5-15.4); Immature Granulocytes % 0.5 % (0-4); Lymphocytes # 0.4 K/mcL (0.6-4.6); Lymphocytes % 1.7 %; Mean Corpuscular HGB Conc 29.2 g/dL (31.6-35.5); Mean Corpuscular Hemoglobin 25.5 pg (28.0-33.3); Mean Corpuscular Volume 87.4 fL (83.0-100.0); Mean Platelet Volume 9.7 fL (9.4-12.4); Monocytes # 0.7 K/mcL (0.0-1.3); Monocytes % 3.4 %; Neutrophils # 19.8 K/mcL (1.6-8.9); Platelet Count 712 K/mcL (140-400); Red Cell Distribution Width 15.7 % (11.5-14.5); Segmented Neutrophils % 94.4 %
[2021-05-07 10:00] LABS: BUN/Creatinine Ratio 23 (6-26); Blood Urea Nitrogen 17 mg/dL (8-23); Calcium 8.8 mg/dL (8.6-10.3); Carbon Dioxide 43 mEq/L (23-29); Chloride 91 mEq/L (98-107); Glucose 135 mg/dL (70-105); Magnesium 1.5 mg/dL (1.6-2.6); Osmolality,Calculated 284 (280-300); Potassium 3.7 mEq/L (3.5-5.1); Sodium 135 mEq/L (136-145); eGFR For African Americans > 60 (> 60); eGFR For Non-African Americans > 60 (> 60)
[2021-05-07] MEDS ORDERED: 0.9 % Sodium Chloride 250 ML IVC SCH (11:21)
[2021-05-07] MEDS ORDERED: Magnesium Oxide 400 MG TABLET PO PRN (11:21)
[2021-05-07] MEDS ORDERED: Naloxone 0.4 MG/ML INJ IVP PRN (11:21)
[2021-05-07] MEDS ORDERED: Ondansetron 4 MG/2 ML VIAL IVP PRN (11:21)
[2021-05-07] MEDS ORDERED: Ipratropium/Albuterol Neb 3 ML IH PRN (11:21)
[2021-05-07] MEDS: *HR* OxyCODONE Immed Rel 5 MG TABLET PO PRN ×2 (13:42→21:07)
[2021-05-07] MEDS: Acetaminophen 325 MG TABLET PO PRN ×2 (13:43→21:07)
[2021-05-07] MEDS: *HR* Rivaroxaban 10 MG TABLET PO SCH (17:23)
[2021-05-07] MEDS: ALPRAZolam 0.5 MG TABLET PO PRN (21:07)
[2021-05-08] MEDS: *HR* OxyCODONE Immed Rel 5 MG TABLET PO PRN ×4 (03:42→19:22)
[2021-05-08] MEDS: Acetaminophen 325 MG TABLET PO PRN ×3 (04:04→19:22)
[2021-05-08] MEDS: Nicotine 14 MG PATCH.TD24 TD SCH (07:50)
[2021-05-08] MEDS: predniSONE 20 MG TABLET PO SCH (07:52)
[2021-05-08] MEDS: Metoprolol XL (24 HR) Succ 25 MG TAB.ER.24H PO SCH (07:54)
[2021-05-08] MEDS: Torsemide 20 MG TABLET PO SCH ×2 (07:55→18:19)
[2021-05-08] MEDS: Budesonide Neb 0.5 MG/2 ML IH SCH ×2 (08:10→21:48)
[2021-05-08] MEDS ORDERED: predniSONE 20 MG TABLET PO SCH (09:00)
[2021-05-08] MEDS: Patient Taking Own Medication 1 EACH PO SCH (13:43)
[2021-05-08] MEDS: Levalbuterol Neb 0.63 MG/3 ML IH SCH ×2 (15:44→21:48)
[2021-05-08 16:00] LABS: Bilirubin,Urine Negative (Negative); Blood,Urine Negative (Negative); Clarity,Urine Clear (Clear); Color,Urine Colorless (Yellow); Glucose,Urine (UA) Normal (Normal); Ketones,Urine Negative (Negative); Leukocyte Esterase,Urine Negative (Negative); Nitrite,Urine Negative (Negative); Protein,Urine Negative (Neg-Trace); Specific Gravity,Urine 1.011 (1.010-1.025); Urobilinogen,Urine Normal (Normal)
[2021-05-08] MEDS: *HR* Rivaroxaban 10 MG TABLET PO SCH (18:19)
[2021-05-08] MEDS: ALPRAZolam 0.5 MG TABLET PO PRN (19:22)
[2021-05-08] MEDS: Morphine Sulfate 2 MG/ML SYRINGE IVP PRN (22:07)
[2021-05-09 03:33] LABS: VBG HCO3 49 mEq/L (21-27); VBG PCO2 72 mmHg (41-51); VBG PH 7.44 pH Units (7.32-7.42); VBG PO2 105 mmHg (25-50)
[2021-05-09] MEDS: Levalbuterol Neb 0.63 MG/3 ML IH SCH ×4 (04:56→23:13)
[2021-05-09] MEDS: predniSONE 20 MG TABLET PO SCH (08:04)
[2021-05-09] MEDS: Torsemide 20 MG TABLET PO SCH ×2 (08:05→16:27)
[2021-05-09] MEDS: *HR* OxyCODONE Immed Rel 5 MG TABLET PO PRN ×2 (08:06→15:18)
[2021-05-09] MEDS: Metoprolol XL (24 HR) Succ 25 MG TAB.ER.24H PO SCH (08:07)
[2021-05-09] MEDS: Acetaminophen 325 MG TABLET PO PRN ×2 (08:08→15:17)
[2021-05-09] MEDS: Nicotine 14 MG PATCH.TD24 TD SCH (08:08)
[2021-05-09] MEDS: Patient Taking Own Medication 1 EACH PO SCH (08:10)
[2021-05-09] MEDS: Budesonide Neb 0.5 MG/2 ML IH SCH ×2 (08:20→23:13)
[2021-05-09 09:14] LABS: VBG Ionized Calcium 1.04 mmol/L (1.15-1.35)
[2021-05-09 09:20] LABS: Basophils % 0.1 %; Eosinophils % 0.2 %; Hematocrit 33.5 % (35.3-44.9); Hemoglobin 9.8 g/dL (11.5-15.4); Immature Granulocytes % 0.5 % (0-4); Lymphocytes # 2.3 K/mcL (0.6-4.6); Lymphocytes % 15.6 %; Mean Corpuscular HGB Conc 29.3 g/dL (31.6-35.5); Mean Corpuscular Hemoglobin 25.9 pg (28.0-33.3); Mean Corpuscular Volume 88.6 fL (83.0-100.0); Mean Platelet Volume 9.4 fL (9.4-12.4); Monocytes # 1.4 K/mcL (0.0-1.3); Monocytes % 9.9 %; Neutrophils # 10.6 K/mcL (1.6-8.9); Platelet Count 743 K/mcL (140-400); Red Blood Count 3.78 M/mcL (3.82-4.97); Red Cell Distribution Width 15.9 % (11.5-14.5); Segmented Neutrophils % 73.7 %; White Blood Count 14.4 K/mcL (4.3-11.1)
[2021-05-09 10:03] LABS: BUN/Creatinine Ratio 33 (6-26); Blood Urea Nitrogen 28 mg/dL (8-23); Calcium 8.8 mg/dL (8.6-10.3); Carbon Dioxide > 45 mEq/L (23-29); Chloride 82 mEq/L (98-107); Glucose 113 mg/dL (70-105); Magnesium 1.3 mg/dL (1.6-2.6); Osmolality,Calculated 290 (280-300); Phosphorous 2.5 mg/dL (2.7-4.5); Potassium 3.2 mEq/L (3.5-5.1); Sodium 137 mEq/L (136-145); eGFR For African Americans > 60 (> 60); eGFR For Non-African Americans > 60 (> 60)
[2021-05-09] MEDS: *HR* Rivaroxaban 10 MG TABLET PO SCH (16:27)
[2021-05-10] MEDS: Levalbuterol Neb 0.63 MG/3 ML IH SCH ×5 (05:21→20:53)
[2021-05-10] MEDS: Torsemide 20 MG TABLET PO SCH ×2 (07:29→16:26)
[2021-05-10] MEDS: Metoprolol XL (24 HR) Succ 25 MG TAB.ER.24H PO SCH (07:29)
[2021-05-10] MEDS: predniSONE 20 MG TABLET PO SCH (07:30)
[2021-05-10] MEDS: Nicotine 14 MG PATCH.TD24 TD SCH (07:33)
[2021-05-10] MEDS: *HR* OxyCODONE Immed Rel 5 MG TABLET PO PRN ×3 (07:40→19:55)
[2021-05-10 08:06] LABS: Basophils % 0.2 %; Eosinophils % 0.3 %; Immature Granulocytes % 0.3 % (0-4); Lymphocytes # 2.8 K/mcL (0.6-4.6); Lymphocytes % 22.1 %; Mean Corpuscular HGB Conc 29.4 g/dL (31.6-35.5); Mean Corpuscular Hemoglobin 25.4 pg (28.0-33.3); Mean Corpuscular Volume 86.3 fL (83.0-100.0); Mean Platelet Volume 9.3 fL (9.4-12.4); Monocytes # 1.3 K/mcL (0.0-1.3); Monocytes % 10.5 %; Neutrophils # 8.4 K/mcL (1.6-8.9); Platelet Count 727 K/mcL (140-400); Red Blood Count 3.94 M/mcL (3.82-4.97); Red Cell Distribution Width 15.9 % (11.5-14.5); Segmented Neutrophils % 66.6 %; White Blood Count 12.6 K/mcL (4.3-11.1)
[2021-05-10] MEDS: Budesonide Neb 0.5 MG/2 ML IH SCH ×2 (08:19→20:53)
[2021-05-10 08:48] LABS: BUN/Creatinine Ratio 35 (6-26); Blood Urea Nitrogen 33 mg/dL (8-23); Carbon Dioxide > 45 mEq/L (23-29); Chloride 87 mEq/L (98-107); Glucose 81 mg/dL (70-105); Magnesium 1.6 mg/dL (1.6-2.6); Osmolality,Calculated 296 (280-300); Potassium 3.5 mEq/L (3.5-5.1); Sodium 140 mEq/L (136-145); eGFR For African Americans > 60 (> 60); eGFR For Non-African Americans 60 (> 60)
[2021-05-10 08:52] LABS: VBG HCO3 48 mEq/L (21-27); VBG PCO2 67 mmHg (41-51); VBG PH 7.47 pH Units (7.32-7.42); VBG PO2 45 mmHg (25-50)
[2021-05-10] MEDS: Acetaminophen 325 MG TABLET PO PRN (11:38)
[2021-05-10] MEDS: *HR* Rivaroxaban 10 MG TABLET PO SCH (16:26)
[2021-05-10] MEDS: Patient Taking Own Medication 1 EACH PO SCH (18:54)
[2021-05-10] MEDS: Sennosides/Docusate Sodium TABLET PO SCH (20:50)
[2021-05-11] MEDS: Levalbuterol Neb 0.63 MG/3 ML IH SCH ×4 (03:35→20:15)
[2021-05-11 05:57] LABS: VBG HCO3 44 mEq/L (21-27); VBG PCO2 41 mmHg (41-51); VBG PH 7.64 pH Units (7.32-7.42); VBG PO2 77 mmHg (25-50)
[2021-05-11 06:02] LABS: Basophils % 0.1 %; Eosinophils % 0.2 %; Hematocrit 35.9 % (35.3-44.9); Hemoglobin 10.4 g/dL (11.5-15.4); Immature Granulocytes % 0.5 % (0-4); Lymphocytes # 2.8 K/mcL (0.6-4.6); Mean Corpuscular Hemoglobin 25.1 pg (28.0-33.3); Mean Corpuscular Volume 86.7 fL (83.0-100.0); Mean Platelet Volume 9.6 fL (9.4-12.4); Monocytes # 1.2 K/mcL (0.0-1.3); Monocytes % 8.3 %; Neutrophils # 10.6 K/mcL (1.6-8.9); Nucleated Red Blood Cells 0.8 /100 WBC (0); Platelet Count 761 K/mcL (140-400); Red Blood Count 4.14 M/mcL (3.82-4.97); Red Cell Distribution Width 16.1 % (11.5-14.5); Segmented Neutrophils % 71.9 %; White Blood Count 14.8 K/mcL (4.3-11.1)
[2021-05-11 06:19] LABS: BUN/Creatinine Ratio 46 (6-26); Blood Urea Nitrogen 37 mg/dL (8-23); Calcium 9.1 mg/dL (8.6-10.3); Carbon Dioxide 44 mEq/L (23-29); Chloride 88 mEq/L (98-107); Glucose 95 mg/dL (70-105); Magnesium 1.6 mg/dL (1.6-2.6); Osmolality,Calculated 296 (280-300); Potassium 3.5 mEq/L (3.5-5.1); Sodium 139 mEq/L (136-145); eGFR For African Americans > 60 (> 60); eGFR For Non-African Americans > 60 (> 60)
[2021-05-11] MEDS: *HR* OxyCODONE Immed Rel 5 MG TABLET PO PRN ×2 (07:22→20:12)
[2021-05-11] MEDS: Sennosides/Docusate Sodium TABLET PO SCH ×2 (07:23→20:11)
[2021-05-11] MEDS: Metoprolol XL (24 HR) Succ 25 MG TAB.ER.24H PO SCH (07:24)
[2021-05-11] MEDS: predniSONE 20 MG TABLET PO SCH (07:24)
[2021-05-11] MEDS: Nicotine 14 MG PATCH.TD24 TD SCH (07:25)
[2021-05-11] MEDS: Patient Taking Own Medication 1 EACH PO SCH (07:25)
[2021-05-11] MEDS: Acetaminophen 325 MG TABLET PO PRN ×2 (07:29→20:11)
[2021-05-11] MEDS: Budesonide Neb 0.5 MG/2 ML IH SCH ×2 (09:54→20:15)
[2021-05-11 10:31] LABS: ABG Base Excess 17 mEq/L (-2 to 3); ABG HCO3 44 mEq/L (21-27); ABG Oxygen Saturation 72 % (95-98); ABG PCO2 61 mmHg (35-45); ABG PH 7.47 pH Units (7.32-7.45); ABG PO2 37 mmHg (85-104); ABG TCO2 46 mEq/L (20-26)
[2021-05-11] MEDS: ALPRAZolam 0.5 MG TABLET PO PRN ×2 (11:09→20:11)
[2021-05-11] MEDS: *HR* Rivaroxaban 10 MG TABLET PO SCH (16:30)
[2021-05-12] MEDS: Levalbuterol Neb 0.63 MG/3 ML IH SCH ×4 (04:07→21:51)
[2021-05-12 07:14] LABS: VBG HCO3 44 mEq/L (21-27); VBG PCO2 70 mmHg (41-51); VBG PH 7.41 pH Units (7.32-7.42); VBG PO2 46 mmHg (25-50)
[2021-05-12] MEDS: Budesonide Neb 0.5 MG/2 ML IH SCH ×2 (07:49→21:51)
[2021-05-12 07:55] LABS: Basophils % 0.2 %; Eosinophils # 0.1 K/mcL (0.0-0.6); Eosinophils % 0.3 %; Hematocrit 35.3 % (35.3-44.9); Hemoglobin 10.5 g/dL (11.5-15.4); Immature Granulocytes % 0.9 % (0-4); Lymphocytes # 3.6 K/mcL (0.6-4.6); Lymphocytes % 23.7 %; Mean Corpuscular HGB Conc 29.7 g/dL (31.6-35.5); Mean Corpuscular Hemoglobin 25.7 pg (28.0-33.3); Mean Corpuscular Volume 86.3 fL (83.0-100.0); Mean Platelet Volume 9.5 fL (9.4-12.4); Monocytes # 1.3 K/mcL (0.0-1.3); Monocytes % 8.3 %; Neutrophils # 10.2 K/mcL (1.6-8.9); Platelet Count 813 K/mcL (140-400); Red Blood Count 4.09 M/mcL (3.82-4.97); Red Cell Distribution Width 16.4 % (11.5-14.5); Segmented Neutrophils % 66.6 %; White Blood Count 15.2 K/mcL (4.3-11.1)
[2021-05-12 08:11] LABS: BUN/Creatinine Ratio 38 (6-26); Blood Urea Nitrogen 31 mg/dL (8-23); Calcium 9.3 mg/dL (8.6-10.3); Carbon Dioxide 45 mEq/L (23-29); Chloride 87 mEq/L (98-107); Glucose 97 mg/dL (70-105); Magnesium 1.7 mg/dL (1.6-2.6); Osmolality,Calculated 290 (280-300); Potassium 3.3 mEq/L (3.5-5.1); Sodium 137 mEq/L (136-145); eGFR For African Americans > 60 (> 60); eGFR For Non-African Americans > 60 (> 60)
[2021-05-12] MEDS: Sennosides/Docusate Sodium TABLET PO SCH ×2 (08:46→20:38)
[2021-05-12] MEDS: Nicotine 14 MG PATCH.TD24 TD SCH (08:46)
[2021-05-12] MEDS: ALPRAZolam 0.5 MG TABLET PO PRN ×2 (08:47→20:38)
[2021-05-12] MEDS: Metoprolol XL (24 HR) Succ 25 MG TAB.ER.24H PO SCH (08:47)
[2021-05-12] MEDS: predniSONE 20 MG TABLET PO SCH (08:47)
[2021-05-12] MEDS: Patient Taking Own Medication 1 EACH PO SCH (08:51)
[2021-05-12] MEDS: Morphine Sulfate 2 MG/ML SYRINGE IVP PRN (13:09)
[2021-05-12] MEDS: *HR* OxyCODONE Immed Rel 5 MG TABLET PO PRN ×2 (15:20→20:38)
[2021-05-12] MEDS: *HR* Rivaroxaban 10 MG TABLET PO SCH (17:20)
[2021-05-12] MEDS: Acetaminophen 325 MG TABLET PO PRN (20:38)
[2021-05-13] MEDS: Levalbuterol Neb 0.63 MG/3 ML IH SCH ×4 (04:36→20:03)
[2021-05-13 05:07] LABS: VBG HCO3 41 mEq/L (21-27); VBG PCO2 55 mmHg (41-51); VBG PH 7.49 pH Units (7.32-7.42); VBG PO2 91 mmHg (25-50)
[2021-05-13 05:09] LABS: Basophils % 0.2 %; Eosinophils # 0.1 K/mcL (0.0-0.6); Eosinophils % 0.5 %; Hematocrit 30.8 % (35.3-44.9); Hemoglobin 9.3 g/dL (11.5-15.4); Immature Granulocytes % 1.1 % (0-4); Lymphocytes # 2.6 K/mcL (0.6-4.6); Lymphocytes % 17.8 %; Mean Corpuscular HGB Conc 30.2 g/dL (31.6-35.5); Mean Corpuscular Hemoglobin 25.9 pg (28.0-33.3); Mean Corpuscular Volume 85.8 fL (83.0-100.0); Mean Platelet Volume 9.4 fL (9.4-12.4); Monocytes # 1.1 K/mcL (0.0-1.3); Monocytes % 7.6 %; Neutrophils # 10.6 K/mcL (1.6-8.9); Nucleated Red Blood Cells 0.1 /100 WBC (0); Platelet Count 642 K/mcL (140-400); Red Blood Count 3.59 M/mcL (3.82-4.97); Red Cell Distribution Width 16.3 % (11.5-14.5); Segmented Neutrophils % 72.8 %; White Blood Count 14.5 K/mcL (4.3-11.1)
[2021-05-13 05:31] LABS: BUN/Creatinine Ratio 42 (6-26); Blood Urea Nitrogen 29 mg/dL (8-23); Calcium 8.5 mg/dL (8.6-10.3); Carbon Dioxide 42 mEq/L (23-29); Chloride 89 mEq/L (98-107); Glucose 128 mg/dL (70-105); Magnesium 1.8 mg/dL (1.6-2.6); Osmolality,Calculated 283 (280-300); Potassium 3.3 mEq/L (3.5-5.1); Sodium 133 mEq/L (136-145); eGFR For African Americans > 60 (> 60); eGFR For Non-African Americans > 60 (> 60)
[2021-05-13] MEDS: Ipratropium Neb 0.5 MG NEBULIZER IH PRN (07:32)
[2021-05-13] MEDS: Budesonide Neb 0.5 MG/2 ML IH SCH ×2 (07:33→20:03)
[2021-05-13] MEDS: Sennosides/Docusate Sodium TABLET PO SCH ×2 (09:49→21:24)
[2021-05-13] MEDS: Metoprolol XL (24 HR) Succ 25 MG TAB.ER.24H PO SCH (09:49)
[2021-05-13] MEDS: predniSONE 20 MG TABLET PO SCH (09:50)
[2021-05-13] MEDS: Nicotine 14 MG PATCH.TD24 TD SCH (09:50)
[2021-05-13] MEDS: *HR* OxyCODONE Immed Rel 5 MG TABLET PO PRN ×3 (10:03→21:23)
[2021-05-13] MEDS: *HR* Rivaroxaban 10 MG TABLET PO SCH (17:00)
[2021-05-13] MEDS: Acetaminophen 325 MG TABLET PO PRN (17:04)
[2021-05-14] MEDS: Levalbuterol Neb 0.63 MG/3 ML IH SCH ×4 (03:59→19:30)
[2021-05-14 04:38] LABS: VBG HCO3 35 mEq/L (21-27); VBG PCO2 44 mmHg (41-51); VBG PH 7.51 pH Units (7.32-7.42); VBG PO2 169 mmHg (25-50)
[2021-05-14 04:56] LABS: Basophils % 0.2 %; Eosinophils # 0.1 K/mcL (0.0-0.6); Eosinophils % 0.4 %; Hematocrit 30.6 % (35.3-44.9); Hemoglobin 9.1 g/dL (11.5-15.4); Immature Granulocytes % 1.4 % (0-4); Lymphocytes # 2.6 K/mcL (0.6-4.6); Lymphocytes % 13.6 %; Mean Corpuscular HGB Conc 29.7 g/dL (31.6-35.5); Mean Corpuscular Hemoglobin 25.7 pg (28.0-33.3); Mean Corpuscular Volume 86.4 fL (83.0-100.0); Mean Platelet Volume 9.9 fL (9.4-12.4); Monocytes # 1.2 K/mcL (0.0-1.3); Monocytes % 6.1 %; Neutrophils # 15.2 K/mcL (1.6-8.9); Platelet Count 640 K/mcL (140-400); Red Blood Count 3.54 M/mcL (3.82-4.97); Red Cell Distribution Width 16.3 % (11.5-14.5); Segmented Neutrophils % 78.3 %; White Blood Count 19.4 K/mcL (4.3-11.1)
[2021-05-14 05:22] LABS: BUN/Creatinine Ratio 31 (6-26); Blood Urea Nitrogen 24 mg/dL (8-23); Calcium 8.4 mg/dL (8.6-10.3); Carbon Dioxide 33 mEq/L (23-29); Chloride 93 mEq/L (98-107); Glucose 94 mg/dL (70-105); Magnesium 1.7 mg/dL (1.6-2.6); Osmolality,Calculated 278 (280-300); Potassium 4.3 mEq/L (3.5-5.1); Sodium 132 mEq/L (136-145); eGFR For African Americans > 60 (> 60); eGFR For Non-African Americans > 60 (> 60)
[2021-05-14] MEDS: Ipratropium Neb 0.5 MG NEBULIZER IH PRN ×2 (07:38→19:30)
[2021-05-14] MEDS: Budesonide Neb 0.5 MG/2 ML IH SCH ×2 (07:38→19:30)
[2021-05-14] MEDS: Sennosides/Docusate Sodium TABLET PO SCH ×2 (08:13→20:01)
[2021-05-14] MEDS: Metoprolol XL (24 HR) Succ 25 MG TAB.ER.24H PO SCH (08:14)
[2021-05-14] MEDS: *HR* OxyCODONE Immed Rel 5 MG TABLET PO PRN ×3 (08:15→20:57)
[2021-05-14] MEDS: Nicotine 14 MG PATCH.TD24 TD SCH (08:16)
[2021-05-14] MEDS ORDERED: predniSONE 20 MG TABLET PO SCH (09:00)
[2021-05-14] MEDS: *HR* Rivaroxaban 10 MG TABLET PO SCH (16:13)
[2021-05-15] MEDS: Levalbuterol Neb 0.63 MG/3 ML IH SCH ×3 (03:33→16:43)
[2021-05-15 07:29] LABS: Basophils % 0.2 %; Eosinophils % 0.8 %; Immature Granulocytes % 2.2 % (0-4); Nucleated Red Blood Cells 0.1 /100 WBC (0)
[2021-05-15 07:29] LABS: VBG HCO3 35 mEq/L (21-27); VBG PCO2 63 mmHg (41-51); VBG PH 7.35 pH Units (7.32-7.42); VBG PO2 19 mmHg (25-50)
[2021-05-15 07:30] LABS: Eosinophils # 0.1 K/mcL (0.0-0.6); Hematocrit 32.1 % (35.3-44.9); Hemoglobin 9.4 g/dL (11.5-15.4); Lymphocytes # 3.2 K/mcL (0.6-4.6); Mean Corpuscular HGB Conc 29.3 g/dL (31.6-35.5); Mean Corpuscular Hemoglobin 25.7 pg (28.0-33.3); Mean Corpuscular Volume 87.7 fL (83.0-100.0); Mean Platelet Volume 9.8 fL (9.4-12.4); Monocytes # 1.4 K/mcL (0.0-1.3); Monocytes % 7.7 %; Neutrophils # 12.7 K/mcL (1.6-8.9); Platelet Count 609 K/mcL (140-400); Red Blood Count 3.66 M/mcL (3.82-4.97); Red Cell Distribution Width 16.7 % (11.5-14.5); Segmented Neutrophils % 71.1 %; White Blood Count 17.8 K/mcL (4.3-11.1)
[2021-05-15 07:45] LABS: BUN/Creatinine Ratio 26 (6-26); Blood Urea Nitrogen 20 mg/dL (8-23); Calcium 8.8 mg/dL (8.6-10.3); Carbon Dioxide 36 mEq/L (23-29); Chloride 96 mEq/L (98-107); Glucose 85 mg/dL (70-105); Magnesium 1.8 mg/dL (1.6-2.6); Osmolality,Calculated 284 (280-300); Potassium 4.3 mEq/L (3.5-5.1); Sodium 136 mEq/L (136-145); eGFR For African Americans > 60 (> 60); eGFR For Non-African Americans > 60 (> 60)
[2021-05-15] MEDS: Sennosides/Docusate Sodium TABLET PO SCH ×2 (07:47→19:14)
[2021-05-15] MEDS: Metoprolol XL (24 HR) Succ 25 MG TAB.ER.24H PO SCH (07:48)
[2021-05-15] MEDS: Nicotine 14 MG PATCH.TD24 TD SCH (07:48)
[2021-05-15] MEDS: *HR* OxyCODONE Immed Rel 5 MG TABLET PO PRN ×3 (08:04→21:00)
[2021-05-15 08:19] LABS: Platelet Estimate Increased (Normal); Polychromasia 1+ (Not Present)
[2021-05-15 08:20] LABS: Anisocytosis 1+ (Not Present); Hypochromasia Present (Not Present); Poikilocytosis 1+ (Not Present)
[2021-05-15] MEDS ORDERED: predniSONE 10 MG TABLET PO SCH (09:00)
[2021-05-15] MEDS: Budesonide Neb 0.5 MG/2 ML IH SCH ×2 (09:37→21:42)
[2021-05-15] MEDS: *HR* Rivaroxaban 10 MG TABLET PO SCH (16:28)
[2021-05-15] MEDS ORDERED: Levalbuterol Neb 0.63 MG/3 ML IH PRN (16:42)
[2021-05-16 07:49] LABS: Basophils % 0.3 %; Eosinophils # 0.2 K/mcL (0.0-0.6); Hematocrit 31.7 % (35.3-44.9); Hemoglobin 9.3 g/dL (11.5-15.4); Immature Granulocytes % 1.7 % (0-4); Lymphocytes # 2.8 K/mcL (0.6-4.6); Lymphocytes % 17.8 %; Mean Corpuscular HGB Conc 29.3 g/dL (31.6-35.5); Mean Corpuscular Hemoglobin 25.6 pg (28.0-33.3); Mean Corpuscular Volume 87.3 fL (83.0-100.0); Monocytes # 1.3 K/mcL (0.0-1.3); Monocytes % 7.9 %; Neutrophils # 11.3 K/mcL (1.6-8.9); Platelet Count 562 K/mcL (140-400); Red Blood Count 3.63 M/mcL (3.82-4.97); Red Cell Distribution Width 17.1 % (11.5-14.5); Segmented Neutrophils % 71.3 %; White Blood Count 15.9 K/mcL (4.3-11.1)
[2021-05-16 08:06] LABS: BUN/Creatinine Ratio 24 (6-26); Blood Urea Nitrogen 18 mg/dL (8-23); Calcium 8.6 mg/dL (8.6-10.3); Carbon Dioxide 32 mEq/L (23-29); Chloride 99 mEq/L (98-107); Glucose 93 mg/dL (70-105); Magnesium 1.8 mg/dL (1.6-2.6); Osmolality,Calculated 282 (280-300); Potassium 4.5 mEq/L (3.5-5.1); Sodium 135 mEq/L (136-145); eGFR For African Americans > 60 (> 60); eGFR For Non-African Americans > 60 (> 60)
[2021-05-16 08:47] VITALS: BP 135/73; PULSE 120; TEMP 98.6; O2SAT 91
[2021-05-16] MEDS: *HR* OxyCODONE Immed Rel 5 MG TABLET PO PRN ×2 (09:08→12:39)
[2021-05-16] MEDS: Nicotine 14 MG PATCH.TD24 TD SCH (09:08)
[2021-05-16] MEDS: Sennosides/Docusate Sodium TABLET PO SCH (09:09)
[2021-05-16] MEDS: Metoprolol XL (24 HR) Succ 25 MG TAB.ER.24H PO SCH (09:09)
[2021-05-16] MEDS: Budesonide Neb 0.5 MG/2 ML IH SCH (09:21)
[2021-05-16 13:29] LABS: Influenza A PCR Negative (Negative); Influenza B PCR Negative (Negative); Resp. Syncytial Virus PCR Negative (Negative)
[2021-05-16] MEDS: ALPRAZolam 0.5 MG TABLET PO PRN (14:16)
[2021-05-16 14:23] LABS: SARS-CoV-2 by PCR (In House) Negative (Negative)
== END 2021-05-16 15:14 | DRG 480 ==
LOC: EMEROOARM 12:39 → 4WAOSI 12:39 → SUATTDRO 16:57 → 4WAOSI 17:43 → ICNU 05-05 17:21 → SUATTDRO 05-05 19:45 → 4WAOSI 05-07 16:15
PROVIDERS: ADMIT Family Medicine; ATTEND Pharmacist

== ENCOUNTER 2021-09-09 02:13 | Inpatient (IN) ==
[2021-09-09] MEDS ORDERED: 0.9 % Sodium Chloride 1,000 ML IVC ONE (02:30)
[2021-09-09 03:01] LABS: Bacteria,Urine Few per hpf (None-Few); Bilirubin,Urine Negative (Negative); Blood,Urine Trace (Negative); Clarity,Urine Turbid (Clear); Color,Urine Yellow (Yellow); Glucose,Urine (UA) Normal (Normal); Hyaline Casts,Urine Few per lpf (None Seen); Ketones,Urine Negative (Negative); Leukocyte Esterase,Urine Negative (Negative); Mucus,Urine Few per lpf (None-Few); Nitrite,Urine Negative (Negative); Protein,Urine 100 mg/dL (Neg-Trace); Specific Gravity,Urine 1.022 (1.010-1.025); Squamous Epithelial Cell,Urine Few per hpf (None-Few); Urobilinogen,Urine Normal (Normal); WBC,Urine 0-3 per hpf (0-3)
[2021-09-09 03:29] LABS: Influenza A PCR Negative (Negative); Influenza B PCR Negative (Negative); Resp. Syncytial Virus PCR Negative (Negative)
[2021-09-09 03:30] LABS: SARS-CoV-2 by PCR (In House) Negative (Negative)
[2021-09-09 03:36] LABS: Red Cell Distribution Width 17.2 % (11.5-14.5)
[2021-09-09 03:37] LABS: Basophils # 0.1 K/mcL (0.0-0.2); Basophils % 0.3 %; Eosinophils % 0.6 %; Hematocrit 31.7 % (35.3-44.9); Hemoglobin 8.1 g/dL (11.5-15.4); Immature Granulocytes % 0.9 % (0-4); Lymphocytes # 0.8 K/mcL (0.6-4.6); Mean Corpuscular HGB Conc 25.6 g/dL (31.6-35.5); Mean Corpuscular Hemoglobin 22.5 pg (28.0-33.3); Mean Corpuscular Volume 88.1 fL (83.0-100.0); Mean Platelet Volume 9.6 fL (9.4-12.4); Monocytes # 1.6 K/mcL (0.0-1.3); Monocytes % 6.5 %; Neutrophils # 22.3 K/mcL (1.6-8.9); Nucleated Red Blood Cells 0.7 /100 WBC (0); Platelet Count 766 K/mcL (140-400); Segmented Neutrophils % 88.7 %; White Blood Count 25.1 K/mcL (4.3-11.1)
[2021-09-09 03:45] LABS: Eosinophils # 0.2 K/mcL (0.0-0.6)
[2021-09-09] MEDS ORDERED: Azithromycin 500 MG in 0.9 % Sodium Chloride 250 ML IVPB ONE (03:55)
[2021-09-09] MEDS ORDERED: cefTRIAXone 1,000 MG in 0.9 % Sodium Chloride Mini Bag 100 ML IVPB ONE (03:55)
[2021-09-09 04:04] LABS: Alanine Aminotransferase 11 Units/L (7-52); Albumin 3.1 g/dL (3.5-5.7); Alkaline Phosphatase 192 Units/L (34-104); Aspartate Amino Transferase 9 Units/L (13-39); BUN/Creatinine Ratio 28 (6-26); Bilirubin,Indirect 0.2 mg/dL (0.0-1.0); Bilirubin,Total 0.2 mg/dL (0.3-1.0); Blood Urea Nitrogen 21 mg/dL (8-23); Calcium 8.8 mg/dL (8.6-10.3); Carbon Dioxide 37 mEq/L (23-29); Chloride 97 mEq/L (98-107); Creatine Kinase 36 Units/L (30-223); Globulin 3.2 g/dL (2.4-3.5); Glucose 170 mg/dL (70-105); Osmolality,Calculated 295 (280-300); Potassium 4.6 mEq/L (3.5-5.1); Sodium 139 mEq/L (136-145); Total Protein 6.3 g/dL (6.4-8.9); Troponin I 0.44 ng/mL (< 0.04); eGFR For African Americans > 60 (> 60); eGFR For Non-African Americans > 60 (> 60)
[2021-09-09] MEDS ORDERED: *HR* Heparin 5,000 UNIT/ML VIAL IVP PRN (04:05)
[2021-09-09] MEDS ORDERED: *HR* Heparin 5,000 UNIT/ML VIAL IVP ONE (04:05)
[2021-09-09 04:20] LABS: Anisocytosis 1+ (Not Present); Platelet Estimate Marked Increase (Normal)
[2021-09-09] MEDS ORDERED: *HR* HYDROcodone/Acet 5/325 mg TABLET PO PRN (04:30)
[2021-09-09] MEDS ORDERED: *HR* OxyCODONE Immed Rel 5 MG TABLET PO PRN (04:30)
[2021-09-09] MEDS ORDERED: Melatonin 3 MG TABLET PO PRN (04:30)
[2021-09-09] MEDS ORDERED: Ondansetron ODT 4 MG TAB.RAPDIS SL PRN (04:30)
[2021-09-09] MEDS ORDERED: Naloxone 0.4 MG/ML INJ IVP PRN ×2 (04:30→04:56)
[2021-09-09] MEDS ORDERED: Acetaminophen 325 MG TABLET PO PRN (04:30)
[2021-09-09] MEDS ORDERED: Perflutren Lipid Microsphere 1.3 ML in 0.9 % Sodium Chloride 8.7 ML IVP PRN (04:34)
[2021-09-09] MEDS ORDERED: Ipratropium/Albuterol Neb 3 ML IH PRN (04:35)
[2021-09-09] MEDS: Heparin 25,000UNIT/250ML 1/2NS 25,000 UNIT/250 ML IV.SOLN IVC SCH (04:47)
[2021-09-09] MEDS ORDERED: Acetaminophen 650 MG RECTAL SUPP RC PRN (04:54)
[2021-09-09] MEDS ORDERED: Ondansetron 4 MG/2 ML VIAL IVP PRN (04:56)
[2021-09-09] MEDS ORDERED: Azithromycin 500 MG in 0.9 % Sodium Chloride 250 ML IVPB SCH (05:00)
[2021-09-09] MEDS ORDERED: Iopamidol - 370 500 ML MLS IVP ONE (05:09)
[2021-09-09] MEDS ORDERED: D5% in Water 1,000 ML IVC PRN (05:23)
[2021-09-09] MEDS ORDERED: *HR* Dextrose 50 % in Water (Syg) 50 ML SYRINGE IVP PRN (05:23)
[2021-09-09] MEDS ORDERED: Dextrose Gel 15 GM/37.5 ML TUBE PO PRN ×2 (05:23)
[2021-09-09] MEDS ORDERED: Nitroglycerin 0.4 MG TAB.SUBL SL PRN (05:27)
[2021-09-09] MEDS ORDERED: Ipratropium/Albuterol Neb 3 ML ONE (06:29)
[2021-09-09 06:33] LABS: Adenovirus Not Detected (Not Detect); Bordetella Pertussis Not Detected (Not Detect); Chlamydophila pneumoniae Not Detected (Not Detect); Coronavirus 229E Not Detected (Not Detect); Coronavirus HKU1 Not Detected (Not Detect); Coronavirus NL63 Not Detected (Not Detect); Coronavirus OC43 Not Detected (Not Detect); Human Metapneumovirus Not Detected (Not Detect); Human Rhinovirus/Enterovirus Not Detected (Not Detect); Influenza A Subtype 2009 H1 Not Detected (Not Detect); Influenza B Not Detected (Not Detect); Mycoplasma pneumoniae Not Detected (Not Detect); Parainfluenza Virus 1 Not Detected (Not Detect); Parainfluenza Virus 2 Not Detected (Not Detect); Parainfluenza Virus 3 Not Detected (Not Detect); Parainfluenza Virus 4 Not Detected (Not Detect); Respiratory Syncytial Virus Not Detected (Not Detect); SARS-CoV-2 Not Detected (Not Detect)
[2021-09-09] MEDS ORDERED: Ipratropium/Albuterol Neb 3 ML IH ONE (06:39)
[2021-09-09 06:51] LABS: ABG Base Excess 1 mEq/L (-2 to 3); ABG HCO3 33 mEq/L (21-27); ABG Oxygen Saturation 94 % (95-98); ABG PCO2 119 mmHg (35-45); ABG PH 7.06 pH Units (7.32-7.45); ABG PO2 108 mmHg (85-104); ABG TCO2 37 mEq/L (20-26)
[2021-09-09] MEDS: Ipratropium/Albuterol Neb 3 ML IH SCH ×5 (07:38→23:43)
[2021-09-09 08:21] LABS: ABG Base Excess 5 mEq/L (-2 to 3); ABG HCO3 37 mEq/L (21-27); ABG Oxygen Saturation 99 % (95-98); ABG PCO2 123 mmHg (35-45); ABG PH 7.09 pH Units (7.32-7.45); ABG PO2 167 mmHg (85-104); ABG TCO2 41 mEq/L (20-26)
[2021-09-09 08:34] LABS: Mean Platelet Volume 9.5 fL (9.4-12.4)
[2021-09-09 08:36] LABS: Hematocrit 30.4 % (35.3-44.9); Hemoglobin 7.8 g/dL (11.5-15.4); Mean Corpuscular HGB Conc 25.7 g/dL (31.6-35.5); Mean Corpuscular Hemoglobin 22.9 pg (28.0-33.3); Mean Corpuscular Volume 89.4 fL (83.0-100.0); Platelet Count 663 K/mcL (140-400); Red Cell Distribution Width 17.2 % (11.5-14.5); White Blood Count 25.8 K/mcL (4.3-11.1)
[2021-09-09 08:54] LABS: Heparin anti-factor XA UFH 0.43 IU/mL (0.30-0.70); INR 1.1; Prothrombin Time 12.5 Seconds (9.4-12.1)
[2021-09-09] MEDS ORDERED: cefTRIAXone 1,000 MG in 0.9 % Sodium Chloride 10 ML IVP SCH (09:00)
[2021-09-09] MEDS ORDERED: Artificial Tears SOLN 15 ML BOTTLE BOTH EYES PRN ×2 (09:31)
[2021-09-09] MEDS ORDERED: Pantoprazole 40 MG VIAL IVP SCH (09:45)
[2021-09-09] MEDS ORDERED: Chlorhexidine Rinse 15 ML MOUTHWASH MM SCH (09:45)
[2021-09-09 09:49] LABS: Chol/HDL Ratio 2.4 (0-4.9); Magnesium 1.9 mg/dL (1.6-2.6); Phosphorous 4.9 mg/dL (2.7-4.5)
[2021-09-09] MEDS: Dexmedetomidine HCl 400 MCG/100 ML MLS IVC SCH ×2 (09:50→18:48)
[2021-09-09] MEDS: FentaNYL (PF) 1,000 MCG/100 ML IV.SOLN IVC SCH ×2 (09:50→18:47)
[2021-09-09 10:28] LABS: ABG Base Excess 7 mEq/L (-2 to 3); ABG HCO3 36 mEq/L (21-27); ABG Oxygen Saturation 100 % (95-98); ABG PCO2 87 mmHg (35-45); ABG PH 7.23 pH Units (7.32-7.45); ABG PO2 425 mmHg (85-104); ABG TCO2 39 mEq/L (20-26); Blood Gas Modality AF; Blood Gas VT 500 cc
[2021-09-09] MEDS: Budesonide/Formoterol 160/4.5 1 PUFF INH IH SCH ×2 (10:39→19:38)
[2021-09-09] MEDS: Pantoprazole 40 MG VIAL IVP SCH (11:33)
[2021-09-09] MEDS: Piperacillin/Tazobactam 3.375 GM in 0.9 % Sodium Chloride Mini Bag 100 ML IVPB SCH ×2 (11:53→18:05)
[2021-09-09] MEDS ORDERED: Artificial Tears SOLN 15 ML BOTTLE BOTH EYES SCH (12:00)
[2021-09-09 12:03] LABS: Estimated Average Glucose 137 mg/dl; Hemoglobin A1C 6.4 %
[2021-09-09] MEDS: Artificial Tears SOLN 15 ML BOTTLE BOTH EYES SCH ×4 (12:27→23:03)
[2021-09-09] MEDS: Aspirin Enteric Coated 81 MG Tablet PO SCH (12:55)
[2021-09-09] MEDS ORDERED: *HR* Midazolam HCl 2 MG/2 ML VIAL IVP ONE (13:10)
[2021-09-09] MEDS ORDERED: *HR* Etomidate 20 MG/10 ML AMPUL IVP ONE (13:10)
[2021-09-09] MEDS ORDERED: *HR* Propofol 200 MG/20 ML VIAL IVP ONE (13:10)
[2021-09-09] MEDS: Norepinephrine 4 MG/254 ML IV.SOLN IVC SCH (15:00)
[2021-09-09] MEDS: Vancomycin 1,250 MG/262.5 ML IV.SOLN IVPB SCH (15:22)
[2021-09-09] MEDS: *HR* Heparin 5,000 UNIT/ML VIAL IVP PRN (16:24)
[2021-09-09] MEDS: 0.9 % Sodium Chloride 1,000 ML IVC SCH (16:27)
[2021-09-09] MEDS: Chlorhexidine Rinse 15 ML MOUTHWASH MM SCH (20:00)
[2021-09-10] MEDS: FentaNYL (PF) 1,000 MCG/100 ML IV.SOLN IVC SCH ×3 (01:07→17:59)
[2021-09-10] MEDS: 0.9 % Sodium Chloride 1,000 ML IVC SCH (01:07)
[2021-09-10] MEDS: Piperacillin/Tazobactam 3.375 GM in 0.9 % Sodium Chloride Mini Bag 100 ML IVPB SCH ×3 (01:08→17:11)
[2021-09-10] MEDS: Dexmedetomidine HCl 400 MCG/100 ML MLS IVC SCH ×3 (02:00→21:04)
[2021-09-10] MEDS: Artificial Tears SOLN 15 ML BOTTLE BOTH EYES SCH ×6 (03:04→23:02)
[2021-09-10] MEDS: Heparin 25,000UNIT/250ML 1/2NS 25,000 UNIT/250 ML IV.SOLN IVC SCH ×2 (03:23→19:05)
[2021-09-10] MEDS: Norepinephrine 4 MG/254 ML IV.SOLN IVC SCH ×2 (03:24→19:15)
[2021-09-10 03:26] LABS: Basophils # 0.1 K/mcL (0.0-0.2); Basophils % 0.4 %; Eosinophils # 0.3 K/mcL (0.0-0.6); Eosinophils % 1.3 %; Hematocrit 25.5 % (35.3-44.9); Hemoglobin 6.8 g/dL (11.5-15.4); Immature Granulocytes % 2.3 % (0-4); Lymphocytes # 1.6 K/mcL (0.6-4.6); Mean Corpuscular HGB Conc 26.7 g/dL (31.6-35.5); Mean Corpuscular Hemoglobin 22.8 pg (28.0-33.3); Mean Corpuscular Volume 85.6 fL (83.0-100.0); Mean Platelet Volume 9.7 fL (9.4-12.4); Monocytes % 5.5 %; Nucleated Red Blood Cells 0.4 /100 WBC (0); Platelet Count 628 K/mcL (140-400); Red Blood Count 2.98 M/mcL (3.82-4.97); Red Cell Distribution Width 17.6 % (11.5-14.5); Segmented Neutrophils % 83.5 %; White Blood Count 22.6 K/mcL (4.3-11.1)
[2021-09-10 03:35] LABS: Monocytes # 1.2 K/mcL (0.0-1.3); Neutrophils # 18.9 K/mcL (1.6-8.9)
[2021-09-10 03:43] LABS: Alanine Aminotransferase 15 Units/L (7-52); Albumin 2.5 g/dL (3.5-5.7); Albumin/Globulin Ratio 0.9 (1.1-2.2); Alkaline Phosphatase 174 Units/L (34-104); Aspartate Amino Transferase 11 Units/L (13-39); BUN/Creatinine Ratio 31 (6-26); Bilirubin,Total 0.2 mg/dL (0.3-1.0); Blood Urea Nitrogen 22 mg/dL (8-23); Calcium 7.8 mg/dL (8.6-10.3); Carbon Dioxide 31 mEq/L (23-29); Chloride 103 mEq/L (98-107); Globulin 2.7 g/dL (2.4-3.5); Glucose 160 mg/dL (70-105); Magnesium 1.8 mg/dL (1.6-2.6); Osmolality,Calculated 299 (280-300); Phosphorous 2.3 mg/dL (2.7-4.5); Potassium 3.8 mEq/L (3.5-5.1); Sodium 141 mEq/L (136-145); Total Protein 5.2 g/dL (6.4-8.9); eGFR For African Americans > 60 (> 60); eGFR For Non-African Americans > 60 (> 60)
[2021-09-10] MEDS: Ipratropium/Albuterol Neb 3 ML IH SCH ×6 (03:46→23:57)
[2021-09-10 04:06] LABS: Anisocytosis 1+ (Not Present); Hypochromasia Present (Not Present); Large Platelets Present (Not Present); Reactive Lymphocytes Present (Not Present)
[2021-09-10 04:07] LABS: Platelet Estimate Marked Increase (Normal)
[2021-09-10 04:18] LABS: ABG Base Excess 3 mEq/L (-2 to 3); ABG HCO3 30 mEq/L (21-27); ABG Oxygen Saturation 94 % (95-98); ABG PCO2 63 mmHg (35-45); ABG PO2 81 mmHg (85-104); ABG TCO2 32 mEq/L (20-26); Blood Gas Modality AF; Blood Gas VT 500 cc
[2021-09-10] MEDS: Budesonide/Formoterol 160/4.5 1 PUFF INH IH SCH ×2 (07:25→19:33)
[2021-09-10] MEDS: Chlorhexidine Rinse 15 ML MOUTHWASH MM SCH ×2 (07:49→20:04)
[2021-09-10] MEDS: Pantoprazole 40 MG VIAL IVP SCH (07:49)
[2021-09-10] MEDS: Azithromycin 500 MG in 0.9 % Sodium Chloride 250 ML IVPB SCH (07:50)
[2021-09-10] MEDS: Aspirin Enteric Coated 81 MG Tablet PO SCH (07:50)
[2021-09-10] MEDS: Aspirin 81 MG TAB.CHEW GTUBE SCH (08:14)
[2021-09-10] MEDS ORDERED: cefTRIAXone 1,000 MG in 0.9 % Sodium Chloride 10 ML IVP SCH ×2 (09:00→18:00)
[2021-09-10 10:56] LABS: Basophils # 0.1 K/mcL (0.0-0.2); Basophils % 0.4 %; Eosinophils # 0.4 K/mcL (0.0-0.6); Hemoglobin 7.6 g/dL (11.5-15.4); Immature Granulocytes % 3.9 % (0-4); Lymphocytes # 1.7 K/mcL (0.6-4.6); Lymphocytes % 9.6 %; Mean Corpuscular HGB Conc 28.1 g/dL (31.6-35.5); Mean Corpuscular Hemoglobin 23.7 pg (28.0-33.3); Mean Corpuscular Volume 84.1 fL (83.0-100.0); Mean Platelet Volume 9.7 fL (9.4-12.4); Monocytes # 0.9 K/mcL (0.0-1.3); Neutrophils # 14.2 K/mcL (1.6-8.9); Nucleated Red Blood Cells 0.4 /100 WBC (0); Platelet Count 521 K/mcL (140-400); Red Blood Count 3.21 M/mcL (3.82-4.97); Red Cell Distribution Width 16.8 % (11.5-14.5); Segmented Neutrophils % 79.1 %; White Blood Count 17.9 K/mcL (4.3-11.1)
[2021-09-10 11:13] LABS: Anisocytosis 1+ (Not Present); Hypochromasia Present (Not Present)
[2021-09-10 11:14] LABS: Magnesium 2.4 mg/dL (1.6-2.6); Potassium 3.3 mEq/L (3.5-5.1)
[2021-09-10] MEDS ORDERED: Potassium Chloride Elixir 20 MEQ/15 ML UDC GTUBE ONE ×3 (11:20→21:07)
[2021-09-10] MEDS: Vancomycin 1,250 MG/262.5 ML IV.SOLN IVPB SCH (15:06)
[2021-09-11] MEDS: Piperacillin/Tazobactam 3.375 GM in 0.9 % Sodium Chloride Mini Bag 100 ML IVPB SCH ×3 (01:34→16:41)
[2021-09-11] MEDS: FentaNYL (PF) 1,000 MCG/100 ML IV.SOLN IVC SCH ×2 (02:05→14:45)
[2021-09-11 03:08] LABS: VBG Ionized Calcium 1.14 mmol/L (1.15-1.35)
[2021-09-11] MEDS: Artificial Tears SOLN 15 ML BOTTLE BOTH EYES SCH ×6 (03:09→23:00)
[2021-09-11 03:13] LABS: Red Cell Distribution Width 17.3 % (11.5-14.5)
[2021-09-11 03:15] LABS: Basophils # 0.2 K/mcL (0.0-0.2); Basophils % 0.9 %; Eosinophils # 0.4 K/mcL (0.0-0.6); Eosinophils % 2.3 %; Hematocrit 27.1 % (35.3-44.9); Hemoglobin 7.7 g/dL (11.5-15.4); Immature Granulocytes % 7.1 % (0-4); Lymphocytes # 1.8 K/mcL (0.6-4.6); Lymphocytes % 9.7 %; Mean Corpuscular HGB Conc 28.4 g/dL (31.6-35.5); Mean Corpuscular Hemoglobin 23.8 pg (28.0-33.3); Mean Corpuscular Volume 83.9 fL (83.0-100.0); Mean Platelet Volume 9.8 fL (9.4-12.4); Monocytes % 5.2 %; Nucleated Red Blood Cells 0.6 /100 WBC (0); Platelet Count 573 K/mcL (140-400); Red Blood Count 3.23 M/mcL (3.82-4.97); Segmented Neutrophils % 74.8 %; White Blood Count 18.5 K/mcL (4.3-11.1)
[2021-09-11 03:19] LABS: Neutrophils # 13.8 K/mcL (1.6-8.9)
[2021-09-11] MEDS: Ipratropium/Albuterol Neb 3 ML IH SCH ×6 (03:26→23:36)
[2021-09-11 03:33] LABS: Alanine Aminotransferase 11 Units/L (7-52); Albumin 2.3 g/dL (3.5-5.7); Albumin/Globulin Ratio 0.9 (1.1-2.2); Alkaline Phosphatase 164 Units/L (34-104); Aspartate Amino Transferase 7 Units/L (13-39); BUN/Creatinine Ratio 22 (6-26); Bilirubin,Total 0.3 mg/dL (0.3-1.0); Blood Urea Nitrogen 17 mg/dL (8-23); Calcium 7.8 mg/dL (8.6-10.3); Carbon Dioxide 28 mEq/L (23-29); Chloride 109 mEq/L (98-107); Globulin 2.6 g/dL (2.4-3.5); Glucose 116 mg/dL (70-105); Magnesium 2.1 mg/dL (1.6-2.6); Osmolality,Calculated 299 (280-300); Phosphorous 2.7 mg/dL (2.7-4.5); Potassium 3.9 mEq/L (3.5-5.1); Sodium 143 mEq/L (136-145); Total Protein 4.9 g/dL (6.4-8.9); eGFR For African Americans > 60 (> 60); eGFR For Non-African Americans > 60 (> 60)
[2021-09-11 03:34] LABS: ABG Base Excess 3 mEq/L (-2 to 3); ABG HCO3 29 mEq/L (21-27); ABG Oxygen Saturation 94 % (95-98); ABG PCO2 51 mmHg (35-45); ABG PH 7.36 pH Units (7.32-7.45); ABG PO2 74 mmHg (85-104); ABG TCO2 30 mEq/L (20-26); Blood Gas VT 440 cc
[2021-09-11 03:51] LABS: Anisocytosis 1+ (Not Present); Hypochromasia Present (Not Present)
[2021-09-11] MEDS: Dexmedetomidine HCl 400 MCG/100 ML MLS IVC SCH ×4 (05:06→22:44)
[2021-09-11] MEDS: Budesonide/Formoterol 160/4.5 1 PUFF INH IH SCH ×2 (07:26→19:56)
[2021-09-11] MEDS: Pantoprazole 40 MG VIAL IVP SCH (07:43)
[2021-09-11] MEDS: Chlorhexidine Rinse 15 ML MOUTHWASH MM SCH ×2 (07:43→20:07)
[2021-09-11] MEDS: Aspirin 81 MG TAB.CHEW GTUBE SCH (07:44)
[2021-09-11] MEDS: Azithromycin 500 MG in 0.9 % Sodium Chloride 250 ML IVPB SCH (07:44)
[2021-09-11] MEDS ORDERED: Potassium Chloride Elixir 20 MEQ/15 ML UDC GTUBE ONE (07:58)
[2021-09-11] MEDS: Calcium Gluconate 1gm/50mL 1 GM/50 ML BAG IVPB SCH ×2 (08:27→09:27)
[2021-09-11] MEDS ORDERED: Metoclopramide 10 MG/2 ML VIAL IVP ONE (11:45)
[2021-09-11] MEDS: Heparin 25,000UNIT/250ML 1/2NS 25,000 UNIT/250 ML IV.SOLN IVC SCH (12:06)
[2021-09-11] MEDS: *HR* Heparin 5,000 UNIT/ML VIAL IVP PRN (16:41)
[2021-09-11] MEDS: Norepinephrine 4 MG/254 ML IV.SOLN IVC SCH (16:45)
[2021-09-12] MEDS: Piperacillin/Tazobactam 3.375 GM in 0.9 % Sodium Chloride Mini Bag 100 ML IVPB SCH ×3 (01:27→17:28)
[2021-09-12] MEDS: FentaNYL (PF) 1,000 MCG/100 ML IV.SOLN IVC SCH ×2 (01:28→14:51)
[2021-09-12] MEDS: Artificial Tears SOLN 15 ML BOTTLE BOTH EYES SCH ×5 (03:06→20:00)
[2021-09-12 03:29] LABS: VBG Ionized Calcium 1.06 mmol/L (1.15-1.35)
[2021-09-12 03:43] LABS: Basophils % 0.3 %; Mean Corpuscular Volume 86.3 fL (83.0-100.0); Red Cell Distribution Width 17.9 % (11.5-14.5)
[2021-09-12 03:44] LABS: Basophils # 0.1 K/mcL (0.0-0.2); Eosinophils # 0.4 K/mcL (0.0-0.6); Eosinophils % 2.2 %; Hematocrit 28.4 % (35.3-44.9); Hemoglobin 7.7 g/dL (11.5-15.4); Lymphocytes # 3.2 K/mcL (0.6-4.6); Mean Corpuscular HGB Conc 27.1 g/dL (31.6-35.5); Mean Corpuscular Hemoglobin 23.4 pg (28.0-33.3); Mean Platelet Volume 9.6 fL (9.4-12.4); Monocytes # 1.1 K/mcL (0.0-1.3); Monocytes % 5.5 %; Neutrophils # 11.8 K/mcL (1.6-8.9); Nucleated Red Blood Cells 0.5 /100 WBC (0); Platelet Count 550 K/mcL (140-400); Red Blood Count 3.29 M/mcL (3.82-4.97)
[2021-09-12] MEDS: Ipratropium/Albuterol Neb 3 ML IH SCH ×6 (03:54→23:43)
[2021-09-12 04:06] LABS: ABG Base Excess 1 mEq/L (-2 to 3); ABG HCO3 27 mEq/L (21-27); ABG Oxygen Saturation 97 % (95-98); ABG PCO2 48 mmHg (35-45); ABG PH 7.35 pH Units (7.32-7.45); ABG PO2 93 mmHg (85-104); ABG TCO2 28 mEq/L (20-26); Blood Gas Modality ASSIST CONTROL; Blood Gas VT 440 cc
[2021-09-12 04:07] LABS: Alanine Aminotransferase 9 Units/L (7-52); Albumin 2.4 g/dL (3.5-5.7); Albumin/Globulin Ratio 0.9 (1.1-2.2); Alkaline Phosphatase 154 Units/L (34-104); Aspartate Amino Transferase 9 Units/L (13-39); BUN/Creatinine Ratio 21 (6-26); Bilirubin,Total 0.3 mg/dL (0.3-1.0); Blood Urea Nitrogen 17 mg/dL (8-23); Calcium 8.1 mg/dL (8.6-10.3); Carbon Dioxide 26 mEq/L (23-29); Chloride 109 mEq/L (98-107); Globulin 2.6 g/dL (2.4-3.5); Glucose 110 mg/dL (70-105); Osmolality,Calculated 298 (280-300); Phosphorous 4.2 mg/dL (2.7-4.5); Potassium 4.1 mEq/L (3.5-5.1); Sodium 143 mEq/L (136-145); eGFR For African Americans > 60 (> 60); eGFR For Non-African Americans > 60 (> 60)
[2021-09-12] MEDS: Heparin 25,000UNIT/250ML 1/2NS 25,000 UNIT/250 ML IV.SOLN IVC SCH ×2 (04:41→20:03)
[2021-09-12] MEDS: Dexmedetomidine HCl 400 MCG/100 ML MLS IVC SCH ×4 (06:03→20:50)
[2021-09-12] MEDS: Budesonide/Formoterol 160/4.5 1 PUFF INH IH SCH ×2 (07:51→20:10)
[2021-09-12] MEDS ORDERED: 0.9 % Sodium Chloride 250 ML ONE (08:07)
[2021-09-12] MEDS: Aspirin 81 MG TAB.CHEW GTUBE SCH (08:08)
[2021-09-12] MEDS: Pantoprazole 40 MG VIAL IVP SCH (08:08)
[2021-09-12] MEDS: Azithromycin 500 MG in 0.9 % Sodium Chloride 250 ML IVPB SCH (08:08)
[2021-09-12] MEDS: Chlorhexidine Rinse 15 ML MOUTHWASH MM SCH ×2 (08:08→20:00)
[2021-09-12] MEDS: Norepinephrine 4 MG/254 ML IV.SOLN IVC SCH (19:02)
[2021-09-13] MEDS: Artificial Tears SOLN 15 ML BOTTLE BOTH EYES SCH ×4 (00:09→11:01)
[2021-09-13] MEDS: Piperacillin/Tazobactam 3.375 GM in 0.9 % Sodium Chloride Mini Bag 100 ML IVPB SCH ×3 (01:06→17:41)
[2021-09-13] MEDS: Dexmedetomidine HCl 400 MCG/100 ML MLS IVC SCH ×3 (01:08→10:54)
[2021-09-13] MEDS: Ipratropium/Albuterol Neb 3 ML IH SCH ×7 (03:50→23:05)
[2021-09-13 03:58] LABS: ABG Base Excess 1 mEq/L (-2 to 3); ABG HCO3 28 mEq/L (21-27); ABG Oxygen Saturation 96 % (95-98); ABG PCO2 54 mmHg (35-45); ABG PH 7.31 pH Units (7.32-7.45); ABG PO2 88 mmHg (85-104); ABG TCO2 29 mEq/L (20-26); Blood Gas VT 480 cc
[2021-09-13 04:23] LABS: VBG Ionized Calcium 1.06 mmol/L (1.15-1.35)
[2021-09-13 04:27] LABS: Immature Granulocytes % 17.9 % (0-4); Red Cell Distribution Width 18.1 % (11.5-14.5)
[2021-09-13 04:29] LABS: Basophils # 0.1 K/mcL (0.0-0.2); Basophils % 0.4 %; Eosinophils # 0.5 K/mcL (0.0-0.6); Eosinophils % 3.3 %; Hematocrit 27.5 % (35.3-44.9); Hemoglobin 7.4 g/dL (11.5-15.4); Lymphocytes # 2.6 K/mcL (0.6-4.6); Lymphocytes % 15.8 %; Mean Corpuscular HGB Conc 26.9 g/dL (31.6-35.5); Mean Corpuscular Hemoglobin 23.2 pg (28.0-33.3); Mean Corpuscular Volume 86.2 fL (83.0-100.0); Mean Platelet Volume 9.5 fL (9.4-12.4); Monocytes % 5.2 %; Neutrophils # 9.3 K/mcL (1.6-8.9); Nucleated Red Blood Cells 0.2 /100 WBC (0); Platelet Count 460 K/mcL (140-400); Red Blood Count 3.19 M/mcL (3.82-4.97); Segmented Neutrophils % 57.4 %; White Blood Count 16.2 K/mcL (4.3-11.1)
[2021-09-13] MEDS: Norepinephrine 4 MG/254 ML IV.SOLN IVC SCH (04:31)
[2021-09-13 04:33] LABS: Monocytes # 0.8 K/mcL (0.0-1.3)
[2021-09-13 04:41] LABS: Alanine Aminotransferase 9 Units/L (7-52); Albumin 2.3 g/dL (3.5-5.7); Albumin/Globulin Ratio 0.9 (1.1-2.2); Alkaline Phosphatase 131 Units/L (34-104); Aspartate Amino Transferase 13 Units/L (13-39); BUN/Creatinine Ratio 15 (6-26); Bilirubin,Total 0.2 mg/dL (0.3-1.0); Blood Urea Nitrogen 10 mg/dL (8-23); Calcium 7.7 mg/dL (8.6-10.3); Carbon Dioxide 27 mEq/L (23-29); Chloride 106 mEq/L (98-107); Globulin 2.5 g/dL (2.4-3.5); Glucose 89 mg/dL (70-105); Magnesium 1.6 mg/dL (1.6-2.6); Osmolality,Calculated 291 (280-300); Phosphorous 3.8 mg/dL (2.7-4.5); Potassium 3.8 mEq/L (3.5-5.1); Sodium 141 mEq/L (136-145); Total Protein 4.8 g/dL (6.4-8.9); eGFR For African Americans > 60 (> 60); eGFR For Non-African Americans > 60 (> 60)
[2021-09-13] MEDS ORDERED: Potassium Chloride 40 MEQ/200 ML BAG IVPB PRN (04:56)
[2021-09-13] MEDS ORDERED: Calcium Gluconate 1gm/50mL 1 GM/50 ML BAG IVPB PRN ×2 (04:56→11:37)
[2021-09-13] MEDS: Budesonide/Formoterol 160/4.5 1 PUFF INH IH SCH ×2 (07:17→20:13)
[2021-09-13] MEDS: Azithromycin 500 MG in 0.9 % Sodium Chloride 250 ML IVPB SCH (08:49)
[2021-09-13] MEDS: Aspirin 81 MG TAB.CHEW GTUBE SCH (08:49)
[2021-09-13] MEDS: Chlorhexidine Rinse 15 ML MOUTHWASH MM SCH ×2 (08:49→21:57)
[2021-09-13] MEDS: Pantoprazole 40 MG VIAL IVP SCH (08:50)
[2021-09-13 11:05] LABS: Mean Corpuscular HGB Conc 26.2 g/dL (31.6-35.5)
[2021-09-13 11:07] LABS: Hematocrit 32.5 % (35.3-44.9); Hemoglobin 8.5 g/dL (11.5-15.4); Mean Corpuscular Hemoglobin 23.7 pg (28.0-33.3); Mean Corpuscular Volume 90.8 fL (83.0-100.0); Mean Platelet Volume 9.6 fL (9.4-12.4); Nucleated Red Blood Cells 0.2 /100 WBC (0); Platelet Count 487 K/mcL (140-400); Red Blood Count 3.58 M/mcL (3.82-4.97); Red Cell Distribution Width 18.6 % (11.5-14.5); White Blood Count 17.8 K/mcL (4.3-11.1)
[2021-09-13] MEDS ORDERED: Dextrose Gel 15 GM/37.5 ML TUBE PO PRN (11:37)
[2021-09-13] MEDS ORDERED: Melatonin 3 MG TABLET PO PRN (11:37)
[2021-09-13] MEDS ORDERED: Perflutren Lipid Microsphere 1.3 ML in 0.9 % Sodium Chloride 8.7 ML IVP PRN (11:37)
[2021-09-13] MEDS ORDERED: D5% in Water 1,000 ML IVC PRN (11:37)
[2021-09-13] MEDS ORDERED: Heparin 25,000UNIT/250ML 1/2NS 25,000 UNIT/250 ML IV.SOLN IVC SCH (11:37)
[2021-09-13] MEDS ORDERED: Naloxone 0.4 MG/ML INJ IVP PRN (11:37)
[2021-09-13] MEDS ORDERED: *HR* Dextrose 50 % in Water (Syg) 50 ML SYRINGE IVP PRN (11:37)
[2021-09-13] MEDS ORDERED: Acetaminophen 650 MG RECTAL SUPP RC PRN (11:37)
[2021-09-13] MEDS ORDERED: Artificial Tears SOLN 15 ML BOTTLE BOTH EYES PRN (11:37)
[2021-09-13] MEDS ORDERED: Ondansetron 4 MG/2 ML VIAL IVP PRN (11:37)
[2021-09-13] MEDS ORDERED: Nitroglycerin 0.4 MG TAB.SUBL SL PRN (11:37)
[2021-09-13] MEDS ORDERED: Magnesium Oxide 400 MG TABLET PO PRN (11:46)
[2021-09-13 13:18] LABS: BUN/Creatinine Ratio 13 (6-26); Blood Urea Nitrogen 9 mg/dL (8-23); Calcium 8.4 mg/dL (8.6-10.3); Carbon Dioxide 26 mEq/L (23-29); Chloride 105 mEq/L (98-107); Glucose 84 mg/dL (70-105); Osmolality,Calculated 282 (280-300); Potassium 4.8 mEq/L (3.5-5.1); Sodium 137 mEq/L (136-145); eGFR For African Americans > 60 (> 60); eGFR For Non-African Americans > 60 (> 60)
[2021-09-13 15:17] LABS: Anisocytosis 1+ (Not Present); Eosinophils # 1.1 K/mcL (0.0-0.6); Monocytes # 0.4 K/mcL (0.0-1.3); Neutrophils # 12.1 K/mcL (1.6-8.9); Platelet Clumps Few (Not Present); Poikilocytosis 1+ (Not Present)
[2021-09-13] MEDS ORDERED: *HR* Metoprolol 5 MG/5 ML VIAL IVP ONE (16:44)
[2021-09-13] MEDS: *HR* Rivaroxaban 10 MG TABLET PO SCH (17:41)
[2021-09-13] MEDS ORDERED: *HR* Rivaroxaban 10 MG TABLET PO SCH (18:00)
[2021-09-13] MEDS: Dextrose Gel 15 GM/37.5 ML TUBE PO PRN ×2 (18:11→19:03)
[2021-09-13 21:29] LABS: VBG Ionized Calcium 1.02 mmol/L (1.15-1.35)
[2021-09-14] MEDS: Piperacillin/Tazobactam 3.375 GM in 0.9 % Sodium Chloride Mini Bag 100 ML IVPB SCH ×3 (03:18→18:30)
[2021-09-14 03:43] LABS: Nucleated Red Blood Cells 0.3 /100 WBC (0); Red Cell Distribution Width 18.3 % (11.5-14.5)
[2021-09-14 03:44] LABS: Hematocrit 38.8 % (35.3-44.9); Hemoglobin 10.5 g/dL (11.5-15.4); Mean Corpuscular HGB Conc 27.1 g/dL (31.6-35.5); Mean Corpuscular Hemoglobin 23.7 pg (28.0-33.3); Mean Corpuscular Volume 87.6 fL (83.0-100.0); Mean Platelet Volume 9.1 fL (9.4-12.4); Platelet Count 450 K/mcL (140-400); Red Blood Count 4.43 M/mcL (3.82-4.97); White Blood Count 17.8 K/mcL (4.3-11.1)
[2021-09-14 03:58] LABS: VBG Ionized Calcium 1.27 mmol/L (1.15-1.35)
[2021-09-14 04:19] LABS: Alanine Aminotransferase 10 Units/L (7-52); Albumin 2.4 g/dL (3.5-5.7); Albumin/Globulin Ratio 0.8 (1.1-2.2); Alkaline Phosphatase 133 Units/L (34-104); Aspartate Amino Transferase 13 Units/L (13-39); BUN/Creatinine Ratio 9 (6-26); Bilirubin,Total 0.2 mg/dL (0.3-1.0); Blood Urea Nitrogen 6 mg/dL (8-23); Calcium 8.7 mg/dL (8.6-10.3); Carbon Dioxide 30 mEq/L (23-29); Chloride 103 mEq/L (98-107); Globulin 3.1 g/dL (2.4-3.5); Glucose 60 mg/dL (70-105); Magnesium 1.6 mg/dL (1.6-2.6); Osmolality,Calculated 283 (280-300); Phosphorous 4.2 mg/dL (2.7-4.5); Potassium 4.8 mEq/L (3.5-5.1); Sodium 139 mEq/L (136-145); Total Protein 5.5 g/dL (6.4-8.9); eGFR For African Americans > 60 (> 60); eGFR For Non-African Americans > 60 (> 60)
[2021-09-14 04:25] LABS: Anisocytosis 1+ (Not Present); Platelet Estimate Normal (Normal)
[2021-09-14 04:27] LABS: Lymphocytes # 3.9 K/mcL (0.6-4.6); Monocytes # 0.4 K/mcL (0.0-1.3); Neutrophils # 12.1 K/mcL (1.6-8.9)
[2021-09-14] MEDS: Ipratropium/Albuterol Neb 3 ML IH SCH ×6 (04:37→22:57)
[2021-09-14] MEDS: Budesonide/Formoterol 160/4.5 1 PUFF INH IH SCH ×2 (07:32→19:46)
[2021-09-14] MEDS: predniSONE 20 MG TABLET PO SCH (08:29)
[2021-09-14] MEDS: Aspirin 81 MG TAB.CHEW GTUBE SCH (08:30)
[2021-09-14] MEDS: Chlorhexidine Rinse 15 ML MOUTHWASH MM SCH (08:30)
[2021-09-14 11:42] LABS: ABG Base Excess 0 mEq/L (-2 to 3); ABG HCO3 28 mEq/L (21-27); ABG Oxygen Saturation 90 % (95-98); ABG PCO2 65 mmHg (35-45); ABG PH 7.25 pH Units (7.32-7.45); ABG PO2 71 mmHg (85-104); ABG TCO2 30 mEq/L (20-26)
[2021-09-14] MEDS: *HR* Rivaroxaban 10 MG TABLET PO SCH (18:29)
[2021-09-14] MEDS ORDERED: Piperacillin/Tazobactam 3.375 GM in 0.9 % Sodium Chloride Mini Bag 100 ML IVPB SCH (19:00)
[2021-09-15] MEDS: Piperacillin/Tazobactam 3.375 GM in 0.9 % Sodium Chloride Mini Bag 100 ML IVPB SCH ×3 (03:03→17:16)
[2021-09-15] MEDS: Ipratropium/Albuterol Neb 3 ML IH SCH ×6 (04:21→23:52)
[2021-09-15] MEDS: Budesonide/Formoterol 160/4.5 1 PUFF INH IH SCH ×2 (08:17→19:41)
[2021-09-15] MEDS: Aspirin 81 MG TAB.CHEW GTUBE SCH (09:18)
[2021-09-15] MEDS: predniSONE 20 MG TABLET PO SCH (09:18)
[2021-09-15 14:33] LABS: VBG Ionized Calcium 1.18 mmol/L (1.15-1.35)
[2021-09-15 14:53] LABS: BUN/Creatinine Ratio 16 (6-26); Blood Urea Nitrogen 12 mg/dL (8-23); Calcium 8.7 mg/dL (8.6-10.3); Carbon Dioxide 32 mEq/L (23-29); Chloride 101 mEq/L (98-107); Glucose 229 mg/dL (70-105); Osmolality,Calculated 293 (280-300); Potassium 4.9 mEq/L (3.5-5.1); Sodium 138 mEq/L (136-145); eGFR For African Americans > 60 (> 60); eGFR For Non-African Americans > 60 (> 60)
[2021-09-15 14:54] LABS: Alanine Aminotransferase 11 Units/L (7-52); Albumin 2.8 g/dL (3.5-5.7); Albumin/Globulin Ratio 0.9 (1.1-2.2); Alkaline Phosphatase 124 Units/L (34-104); Aspartate Amino Transferase 9 Units/L (13-39); BUN/Creatinine Ratio 15 (6-26); Basophils % 0.3 %; Bilirubin,Total 0.2 mg/dL (0.3-1.0); Blood Urea Nitrogen 12 mg/dL (8-23); Calcium 8.7 mg/dL (8.6-10.3); Carbon Dioxide 33 mEq/L (23-29); Chloride 100 mEq/L (98-107); Globulin 3.2 g/dL (2.4-3.5); Glucose 236 mg/dL (70-105); Magnesium 1.9 mg/dL (1.6-2.6); Osmolality,Calculated 291 (280-300); Phosphorous 3.6 mg/dL (2.7-4.5); Potassium 4.8 mEq/L (3.5-5.1); Sodium 137 mEq/L (136-145); eGFR For African Americans > 60 (> 60); eGFR For Non-African Americans > 60 (> 60)
[2021-09-15 15:01] LABS: Basophils # 0.1 K/mcL (0.0-0.2); Hemoglobin 7.9 g/dL (11.5-15.4); Immature Granulocytes % 6.5 % (0-4); Lymphocytes # 0.8 K/mcL (0.6-4.6); Lymphocytes % 3.6 %; Mean Corpuscular HGB Conc 27.2 g/dL (31.6-35.5); Mean Corpuscular Hemoglobin 23.9 pg (28.0-33.3); Mean Corpuscular Volume 87.6 fL (83.0-100.0); Mean Platelet Volume 9.3 fL (9.4-12.4); Monocytes % 1.5 %; Neutrophils # 20.4 K/mcL (1.6-8.9); Platelet Count 556 K/mcL (140-400); Red Blood Count 3.31 M/mcL (3.82-4.97); Red Cell Distribution Width 18.2 % (11.5-14.5); Segmented Neutrophils % 88.1 %; White Blood Count 23.2 K/mcL (4.3-11.1)
[2021-09-15 15:10] LABS: Monocytes # 0.4 K/mcL (0.0-1.3)
[2021-09-15 15:26] LABS: Anisocytosis 1+ (Not Present); Hypochromasia Present (Not Present)
[2021-09-15] MEDS: *HR* Rivaroxaban 10 MG TABLET PO SCH (17:22)
[2021-09-16] MEDS: Ipratropium/Albuterol Neb 3 ML IH SCH ×6 (03:46→23:23)
[2021-09-16] MEDS: Budesonide/Formoterol 160/4.5 1 PUFF INH IH SCH ×2 (07:36→20:21)
[2021-09-16 08:46] LABS: Hematocrit 29.4 % (35.3-44.9); Hemoglobin 7.9 g/dL (11.5-15.4); Mean Corpuscular HGB Conc 26.9 g/dL (31.6-35.5); Nucleated Red Blood Cells 0.2 /100 WBC (0)
[2021-09-16 08:47] LABS: Basophils % 0.2 %; Immature Granulocytes % 4.5 % (0-4); Lymphocytes # 1.6 K/mcL (0.6-4.6); Lymphocytes % 7.2 %; Mean Corpuscular Hemoglobin 23.4 pg (28.0-33.3); Mean Corpuscular Volume 87.2 fL (83.0-100.0); Mean Platelet Volume 9.5 fL (9.4-12.4); Monocytes % 4.8 %; Neutrophils # 18.1 K/mcL (1.6-8.9); Platelet Count 578 K/mcL (140-400); Red Blood Count 3.37 M/mcL (3.82-4.97); Red Cell Distribution Width 17.8 % (11.5-14.5); Segmented Neutrophils % 83.3 %; White Blood Count 21.7 K/mcL (4.3-11.1)
[2021-09-16 08:56] LABS: VBG Ionized Calcium 1.21 mmol/L (1.15-1.35)
[2021-09-16 09:06] LABS: Alanine Aminotransferase 10 Units/L (7-52); Albumin 2.8 g/dL (3.5-5.7); Albumin/Globulin Ratio 0.8 (1.1-2.2); Alkaline Phosphatase 116 Units/L (34-104); Aspartate Amino Transferase 8 Units/L (13-39); BUN/Creatinine Ratio 22 (6-26); Bilirubin,Total 0.2 mg/dL (0.3-1.0); Blood Urea Nitrogen 16 mg/dL (8-23); Calcium 8.9 mg/dL (8.6-10.3); Carbon Dioxide 36 mEq/L (23-29); Chloride 100 mEq/L (98-107); Globulin 3.3 g/dL (2.4-3.5); Glucose 140 mg/dL (70-105); Magnesium 1.8 mg/dL (1.6-2.6); Osmolality,Calculated 289 (280-300); Phosphorous 2.6 mg/dL (2.7-4.5); Potassium 4.3 mEq/L (3.5-5.1); Sodium 138 mEq/L (136-145); Total Protein 6.1 g/dL (6.4-8.9); eGFR For African Americans > 60 (> 60); eGFR For Non-African Americans > 60 (> 60)
[2021-09-16] MEDS: Aspirin 81 MG TAB.CHEW GTUBE SCH ×2 (10:53→11:10)
[2021-09-16] MEDS: predniSONE 20 MG TABLET PO SCH ×2 (10:54→11:10)
[2021-09-16 13:11] LABS: Anisocytosis 1+ (Not Present); Hypochromasia Present (Not Present); Platelet Estimate Increased (Normal)
[2021-09-16 13:12] LABS: Basophilic Stippling 1+ (Not Present)
[2021-09-16] MEDS: *HR* Rivaroxaban 10 MG TABLET PO SCH (17:04)
[2021-09-17] MEDS: Ipratropium/Albuterol Neb 3 ML IH SCH ×6 (03:48→23:40)
[2021-09-17] MEDS: Budesonide/Formoterol 160/4.5 1 PUFF INH IH SCH ×2 (07:36→20:01)
[2021-09-17] MEDS: predniSONE 20 MG TABLET PO SCH (07:50)
[2021-09-17] MEDS: Aspirin 81 MG TAB.CHEW GTUBE SCH (07:50)
[2021-09-17] MEDS: DilTIAZem CD (24hr) 120 MG CAP.ER.24H PO SCH (07:50)
[2021-09-17] MEDS: *HR* HYDROcodone/Acet 5/325 mg TABLET PO PRN ×2 (10:25→17:47)
[2021-09-17 13:45] LABS: Adenovirus Not Detected (Not Detect); Bordetella Pertussis Not Detected (Not Detect); Chlamydophila pneumoniae Not Detected (Not Detect); Coronavirus 229E Not Detected (Not Detect); Coronavirus HKU1 Not Detected (Not Detect); Coronavirus NL63 Not Detected (Not Detect); Coronavirus OC43 Not Detected (Not Detect); Human Metapneumovirus Not Detected (Not Detect); Human Rhinovirus/Enterovirus Not Detected (Not Detect); Influenza A Subtype 2009 H1 Not Detected (Not Detect); Influenza B Not Detected (Not Detect); Mycoplasma pneumoniae Not Detected (Not Detect); Parainfluenza Virus 1 Not Detected (Not Detect); Parainfluenza Virus 2 Not Detected (Not Detect); Parainfluenza Virus 3 Not Detected (Not Detect); Parainfluenza Virus 4 Not Detected (Not Detect); Respiratory Syncytial Virus Not Detected (Not Detect); SARS-CoV-2 Not Detected (Not Detect)
[2021-09-18] MEDS: Ipratropium/Albuterol Neb 3 ML IH SCH ×6 (03:33→23:19)
[2021-09-18 03:46] LABS: Hematocrit 26.1 % (35.3-44.9); Mean Platelet Volume 9.4 fL (9.4-12.4); Red Cell Distribution Width 17.2 % (11.5-14.5)
[2021-09-18 03:48] LABS: Hemoglobin 7.3 g/dL (11.5-15.4); Mean Corpuscular Hemoglobin 24.3 pg (28.0-33.3); Platelet Count 426 K/mcL (140-400); White Blood Count 15.2 K/mcL (4.3-11.1)
[2021-09-18 04:11] LABS: Alanine Aminotransferase 10 Units/L (7-52); Albumin 2.7 g/dL (3.5-5.7); Alkaline Phosphatase 108 Units/L (34-104); Aspartate Amino Transferase 8 Units/L (13-39); BUN/Creatinine Ratio 28 (6-26); Bilirubin,Total 0.1 mg/dL (0.3-1.0); Blood Urea Nitrogen 19 mg/dL (8-23); Calcium 8.4 mg/dL (8.6-10.3); Carbon Dioxide 41 mEq/L (23-29); Chloride 95 mEq/L (98-107); Globulin 2.7 g/dL (2.4-3.5); Glucose 135 mg/dL (70-105); Magnesium 1.6 mg/dL (1.6-2.6); Osmolality,Calculated 288 (280-300); Potassium 4.4 mEq/L (3.5-5.1); Sodium 137 mEq/L (136-145); Total Protein 5.4 g/dL (6.4-8.9); eGFR For African Americans > 60 (> 60); eGFR For Non-African Americans > 60 (> 60)
[2021-09-18] MEDS: *HR* HYDROcodone/Acet 5/325 mg TABLET PO PRN ×2 (05:25→15:42)
[2021-09-18] MEDS: Budesonide/Formoterol 160/4.5 1 PUFF INH IH SCH ×2 (07:42→19:38)
[2021-09-18] MEDS: predniSONE 20 MG TABLET PO SCH (08:22)
[2021-09-18] MEDS: Aspirin 81 MG TAB.CHEW GTUBE SCH (08:22)
[2021-09-18] MEDS: DilTIAZem CD (24hr) 120 MG CAP.ER.24H PO SCH (08:22)
[2021-09-18 13:01] LABS: Glucose,Pleural Fluid 115 mg/dL (No Ref Range); LDH,Pleural Fluid 76 Units/L (No Ref Range); Total Protein,Pleural Fluid < 2.0 g/dL
[2021-09-18 13:57] LABS: RBC,Pleural Fluid < 2000 RBC/mcL
[2021-09-18 13:58] LABS: Appearance of Pleural Fl Clear (Clear)
[2021-09-19] MEDS: Ipratropium/Albuterol Neb 3 ML IH SCH ×6 (03:31→23:02)
[2021-09-19 05:59] LABS: Hemoglobin 7.8 g/dL (11.5-15.4); Mean Platelet Volume 9.3 fL (9.4-12.4)
[2021-09-19 06:01] LABS: Hematocrit 28.1 % (35.3-44.9); Mean Corpuscular HGB Conc 27.8 g/dL (31.6-35.5); Mean Corpuscular Hemoglobin 23.7 pg (28.0-33.3); Mean Corpuscular Volume 85.4 fL (83.0-100.0); Platelet Count 534 K/mcL (140-400); Red Blood Count 3.29 M/mcL (3.82-4.97); Red Cell Distribution Width 17.2 % (11.5-14.5); White Blood Count 13.5 K/mcL (4.3-11.1)
[2021-09-19 06:23] LABS: BUN/Creatinine Ratio 28 (6-26); Blood Urea Nitrogen 19 mg/dL (8-23); Calcium 8.6 mg/dL (8.6-10.3); Carbon Dioxide 42 mEq/L (23-29); Chloride 91 mEq/L (98-107); Glucose 143 mg/dL (70-105); Osmolality,Calculated 285 (280-300); Potassium 4.8 mEq/L (3.5-5.1); Sodium 135 mEq/L (136-145); eGFR For African Americans > 60 (> 60); eGFR For Non-African Americans > 60 (> 60)
[2021-09-19] MEDS: Budesonide/Formoterol 160/4.5 1 PUFF INH IH SCH ×2 (07:35→20:03)
[2021-09-19] MEDS: Aspirin 81 MG TAB.CHEW PO SCH (08:59)
[2021-09-19] MEDS: DilTIAZem CD (24hr) 120 MG CAP.ER.24H PO SCH (08:59)
[2021-09-19] MEDS: *HR* HYDROcodone/Acet 5/325 mg TABLET PO PRN ×2 (08:59→19:40)
[2021-09-19] MEDS: predniSONE 20 MG TABLET PO SCH (09:00)
[2021-09-19] MEDS ORDERED: Orphenadrine 60 MG/2 ML VIAL IVP ONE (09:54)
[2021-09-20] MEDS: Ipratropium/Albuterol Neb 3 ML IH SCH ×6 (04:11→22:38)
[2021-09-20] MEDS: *HR* HYDROcodone/Acet 5/325 mg TABLET PO PRN ×2 (05:44→16:49)
[2021-09-20] MEDS: Aspirin 81 MG TAB.CHEW PO SCH (07:45)
[2021-09-20] MEDS: predniSONE 20 MG TABLET PO SCH (07:45)
[2021-09-20] MEDS: DilTIAZem CD (24hr) 120 MG CAP.ER.24H PO SCH (07:45)
[2021-09-20] MEDS: Budesonide/Formoterol 160/4.5 1 PUFF INH IH SCH ×2 (07:46→22:38)
[2021-09-20] MEDS: *HR* Rivaroxaban 10 MG TABLET PO SCH (16:50)
[2021-09-21 02:21] LABS: Hematocrit 28.2 % (35.3-44.9); Hemoglobin 7.9 g/dL (11.5-15.4); Mean Corpuscular Volume 85.7 fL (83.0-100.0); Mean Platelet Volume 9.2 fL (9.4-12.4); Platelet Count 818 K/mcL (140-400); Red Blood Count 3.29 M/mcL (3.82-4.97); Red Cell Distribution Width 18.3 % (11.5-14.5); White Blood Count 17.5 K/mcL (4.3-11.1)
[2021-09-21 02:48] LABS: Alanine Aminotransferase 16 Units/L (7-52); Albumin 2.9 g/dL (3.5-5.7); Albumin/Globulin Ratio 1.1 (1.1-2.2); Alkaline Phosphatase 111 Units/L (34-104); Aspartate Amino Transferase 10 Units/L (13-39); BUN/Creatinine Ratio 34 (6-26); Bilirubin,Total 0.2 mg/dL (0.3-1.0); Blood Urea Nitrogen 27 mg/dL (8-23); Calcium 8.4 mg/dL (8.6-10.3); Carbon Dioxide 40 mEq/L (23-29); Chloride 92 mEq/L (98-107); Globulin 2.7 g/dL (2.4-3.5); Glucose 99 mg/dL (70-105); Magnesium 1.6 mg/dL (1.6-2.6); Osmolality,Calculated 287 (280-300); Potassium 4.1 mEq/L (3.5-5.1); Sodium 136 mEq/L (136-145); Total Protein 5.6 g/dL (6.4-8.9); eGFR For African Americans > 60 (> 60); eGFR For Non-African Americans > 60 (> 60)
[2021-09-21] MEDS: Ipratropium/Albuterol Neb 3 ML IH SCH ×6 (03:43→22:56)
[2021-09-21] MEDS: Budesonide/Formoterol 160/4.5 1 PUFF INH IH SCH ×2 (08:06→20:06)
[2021-09-21] MEDS: *HR* HYDROcodone/Acet 5/325 mg TABLET PO PRN ×2 (10:04→20:31)
[2021-09-21] MEDS: predniSONE 20 MG TABLET PO SCH (10:34)
[2021-09-21] MEDS: DilTIAZem CD (24hr) 120 MG CAP.ER.24H PO SCH (10:34)
[2021-09-21] MEDS: Aspirin 81 MG TAB.CHEW PO SCH (10:35)
[2021-09-21] MEDS ORDERED: Vancomycin 1,250 MG/262.5 ML IV.SOLN IVPB ONE (17:00)
[2021-09-21] MEDS ORDERED: cefTRIAXone 2,000 MG in 0.9 % Sodium Chloride 20 ML IVP SCH (17:00)
[2021-09-21] MEDS: *HR* Rivaroxaban 10 MG TABLET PO SCH (18:44)
[2021-09-22 02:06] LABS: Basophils % 0.1 %; Eosinophils % 0.2 %; Monocytes % 5.4 %; Nucleated Red Blood Cells 0.1 /100 WBC (0)
[2021-09-22 02:08] LABS: Hematocrit 26.5 % (35.3-44.9); Hemoglobin 7.3 g/dL (11.5-15.4); Immature Granulocytes % 0.9 % (0-4); Lymphocytes # 1.5 K/mcL (0.6-4.6); Lymphocytes % 7.4 %; Mean Corpuscular HGB Conc 27.5 g/dL (31.6-35.5); Mean Corpuscular Hemoglobin 23.1 pg (28.0-33.3); Mean Corpuscular Volume 83.9 fL (83.0-100.0); Mean Platelet Volume 9.3 fL (9.4-12.4); Monocytes # 1.1 K/mcL (0.0-1.3); Neutrophils # 17.4 K/mcL (1.6-8.9); Platelet Count 876 K/mcL (140-400); Red Blood Count 3.16 M/mcL (3.82-4.97); Red Cell Distribution Width 18.6 % (11.5-14.5); White Blood Count 20.2 K/mcL (4.3-11.1)
[2021-09-22 02:29] LABS: BUN/Creatinine Ratio 38 (6-26); Blood Urea Nitrogen 24 mg/dL (8-23); Calcium 8.1 mg/dL (8.6-10.3); Carbon Dioxide 37 mEq/L (23-29); Chloride 93 mEq/L (98-107); Glucose 104 mg/dL (70-105); Osmolality,Calculated 284 (280-300); Potassium 4.1 mEq/L (3.5-5.1); Sodium 135 mEq/L (136-145); eGFR For African Americans > 60 (> 60); eGFR For Non-African Americans > 60 (> 60)
[2021-09-22 02:46] LABS: Anisocytosis 1+ (Not Present); Hypochromasia Present (Not Present); Platelet Estimate Normal (Normal); Polychromasia 1+ (Not Present); Stomatocytes 1+ (Not Present)
[2021-09-22] MEDS: Ipratropium/Albuterol Neb 3 ML IH SCH ×5 (03:39→20:36)
[2021-09-22] MEDS: Budesonide/Formoterol 160/4.5 1 PUFF INH IH SCH ×2 (07:45→20:36)
[2021-09-22] MEDS: polyethylene glycoL 3350 17 GM POWD.PACK PO SCH (09:43)
[2021-09-22] MEDS: Aspirin 81 MG TAB.CHEW PO SCH (09:43)
[2021-09-22] MEDS: DilTIAZem CD (24hr) 120 MG CAP.ER.24H PO SCH (09:43)
[2021-09-22] MEDS: *HR* HYDROcodone/Acet 5/325 mg TABLET PO PRN (09:54)
[2021-09-22] MEDS: *HR* Rivaroxaban 10 MG TABLET PO SCH (16:04)
[2021-09-22] MEDS ORDERED: Vancomycin 1,250 MG/262.5 ML IV.SOLN IVPB SCH (17:00)
[2021-09-23 02:12] LABS: Basophils % 0.2 %; Eosinophils # 0.5 K/mcL (0.0-0.6); Eosinophils % 3.5 %; Hemoglobin 7.3 g/dL (11.5-15.4); Immature Granulocytes % 0.8 % (0-4); Lymphocytes # 1.6 K/mcL (0.6-4.6); Lymphocytes % 11.6 %; Mean Corpuscular HGB Conc 28.1 g/dL (31.6-35.5); Mean Corpuscular Hemoglobin 24.1 pg (28.0-33.3); Mean Corpuscular Volume 85.8 fL (83.0-100.0); Mean Platelet Volume 9.3 fL (9.4-12.4); Monocytes # 0.9 K/mcL (0.0-1.3); Monocytes % 6.7 %; Neutrophils # 10.7 K/mcL (1.6-8.9); Nucleated Red Blood Cells 0.2 /100 WBC (0); Platelet Count 807 K/mcL (140-400); Red Blood Count 3.03 M/mcL (3.82-4.97); Red Cell Distribution Width 19.1 % (11.5-14.5); Segmented Neutrophils % 77.2 %; White Blood Count 13.8 K/mcL (4.3-11.1)
[2021-09-23 02:31] LABS: Hypochromasia Present (Not Present); Platelet Estimate Increased (Normal); Polychromasia 1+ (Not Present)
[2021-09-23] MEDS: Ipratropium/Albuterol Neb 3 ML IH SCH ×5 (04:26→15:34)
[2021-09-23] MEDS: Budesonide/Formoterol 160/4.5 1 PUFF INH IH SCH (07:37)
[2021-09-23] MEDS: DilTIAZem CD (24hr) 120 MG CAP.ER.24H PO SCH (07:38)
[2021-09-23] MEDS: Aspirin 81 MG TAB.CHEW PO SCH (07:38)
[2021-09-23] MEDS: polyethylene glycoL 3350 17 GM POWD.PACK PO SCH (07:39)
[2021-09-23 12:07] VITALS: BP 145/61; PULSE 84; TEMP 98.4; O2SAT 98
[2021-09-23] MEDS: *HR* Rivaroxaban 10 MG TABLET PO SCH (16:34)
[2021-09-23] MEDS: *HR* HYDROcodone/Acet 5/325 mg TABLET PO PRN (16:36)
[2021-09-23] MEDS ORDERED: ALPRAZolam 0.5 MG TABLET PO ONE (16:39)
[2021-09-23 17:21] LABS: Adenovirus Not Detected (Not Detect); Bordetella Pertussis Not Detected (Not Detect); Chlamydophila pneumoniae Not Detected (Not Detect); Coronavirus 229E Not Detected (Not Detect); Coronavirus HKU1 Not Detected (Not Detect); Coronavirus NL63 Not Detected (Not Detect); Coronavirus OC43 Not Detected (Not Detect); Human Metapneumovirus Not Detected (Not Detect); Human Rhinovirus/Enterovirus Not Detected (Not Detect); Influenza A Subtype 2009 H1 Not Detected (Not Detect); Influenza B Not Detected (Not Detect); Mycoplasma pneumoniae Not Detected (Not Detect); Parainfluenza Virus 1 Not Detected (Not Detect); Parainfluenza Virus 2 Not Detected (Not Detect); Parainfluenza Virus 3 Not Detected (Not Detect); Parainfluenza Virus 4 Not Detected (Not Detect); Respiratory Syncytial Virus Not Detected (Not Detect); SARS-CoV-2 Not Detected (Not Detect)
== END 2021-09-23 16:00 | DRG 871 ==
LOC: EMEROOARM 02:13 → 2NNU 02:13 → SUATTDRO 05:12 → 2NNU 06:55 → SUATTDRO 08:02 → ICNU 09:08 → 2NENU 09-13 23:33
PROVIDERS: ADMIT Family Medicine; ATTEND Internal Medicine